=== PATIENT | female | born 1950 | race Caucasian/White ===

== ENCOUNTER → 2016-09-24 | Outpatient (CLI) | payer BC ==
[2016-09-24 14:02] LABS: Basophils % (A) 1 %; CH 30.1; CHCM 34.5; Eosinophils # (A) 0.4 k/uL (0-0.7); Eosinophils % (A) 14 %; HCT 35.5 % (34.0-46.0); HDW 2.76; HGB 12.4 gm/dL (11.4-16.0); Luc # (Auto) 0.08; Luc % (Auto) 3; Lymphocytes # (A) 0.7 k/uL (1.0-4.8); Lymphocytes % (A) 28 %; MCH 30.6 pg (25.0-35.0); MCHC 34.9 g/dL (31.0-37.0); MCV 87.7 fL (80.0-100.0); Mean Platelet Volume 7.8; Monocytes # (A) 0.3 k/uL (0-1.0); Monocytes % (A) 10 %; Neutrophils # (A) 1.2 k/uL (1.3-7.7); Neutrophils % (A) 44 %; RBC 4.05 m/uL (3.80-5.40); RDW 13.9 % (11.5-15.5); WBC 2.6 k/uL (3.8-10.6)
[2016-09-24 14:29] LABS: Bilirubin, Delta 0.3 mg/dL (0.0-0.2); Total Bilirubin 0.4 mg/dL (0.2-1.3); Total Protein 6.2 g/dL (6.3-8.2)
== END | disposition home or self-care (01) ==
LOC: LABWHC1 13:27
PROVIDERS: ATTEND Internal Medicine
DX: D83.9 Common variable immunodeficiency, unspecified (principal)
CPT/HCPCS: 36415; 80076; 82784; 85025

== ENCOUNTER 2019-08-29 18:52 | Inpatient (IN) | payer MEDICARE ==
[2019-08-29] MEDS ORDERED: SODIUM CHLORIDE 0.9% 1,000 ML IV STA (19:39)
[2019-08-29 20:29] LABS: Albumin 3.8 g/dL (3.5-5.0); Calcium 9.3 mg/dL (8.4-10.2); Potassium 4.1 mmol/L (3.5-5.1); Total Bilirubin 0.2 mg/dL (0.2-1.3); Total Protein 6.7 g/dL (6.3-8.2)
[2019-08-29 20:43] LABS: Appearance,Urine Clear (Clear); Bilirubin,Urine Negative (Negative); Blood,Urine Negative (Negative); Color,Urine Yellow; Glucose,Urine (UA) Negative (Negative); Ketones,Urine Negative (Negative); Leukocyte Esterase,Urine Negative (Negative); Nitrite,Urine Negative (Negative); Protein,Urine Negative (Negative); Specific Gravity,Urine 1.009 (1.001-1.035); Urobilinogen,Urine <2.0 mg/dL (<2.0)
[2019-08-29 20:58] LABS: Basophils % (A) 1 %; Eosinophils # (A) 0.1 k/uL (0-0.7); Eosinophils % (A) 6 %; HCT 35.5 % (34.0-46.0); HGB 11.9 gm/dL (11.4-16.0); Lymphocytes # (A) 0.5 k/uL (1.0-4.8); Lymphocytes % (A) 29 %; MCH 28.8 pg (25.0-35.0); MCHC 33.7 g/dL (31.0-37.0); MCV 85.6 fL (80.0-100.0); Mean Platelet Volume 8.1; Monocytes # (A) 0.2 k/uL (0-1.0); Monocytes % (A) 11 %; Neutrophils # (A) 0.8 k/uL (1.3-7.7); Neutrophils % (A) 52 %; RBC 4.14 m/uL (3.80-5.40); RDW 14.2 % (11.5-15.5); WBC 1.6 k/uL (3.8-10.6)
--- NOTE | 2019-08-29 21:16 | CT ---
EXAMINATION TYPE: CT abdomen pelvis wo con DATE OF EXAM: 08/29/2019 COMPARISON: CT 06/03/2013 HISTORY: DIARRHEA X3 WEEKS CT DLP: 585.4 mGycm Automated exposure control for dose reduction was used. TECHNIQUE: Helical acquisition of images from the lung bases through the pelvis. FINDINGS: There are coronary calcifications present. Increased attenuation in the subcutaneous fat li basia due to injections. LUNG BASES: Nonspecific pulmonary nodules present bilaterally, there are interstitial changes within the lungs. AORTA: No significant abnormality is appreciated. LIVER/GB: Gallbladder is contracted, there is pericholecystic inflammatory change, no definite calcul us. PANCREAS: Poorly defined, possibly fatty replaced, atrophic. SPLEEN: Enlarged. ADRENALS: No significant abnormality is seen. KIDNEYS: No significant abnormality is seen. REPRODUCTIVE ORGANS: No significant abnormality is seen. URINARY BLADDER: No significant abnormality is seen. BOWEL: Colon wall shows a thickened appearance. Some fatty replacement noted within origins of the c olon wall. There is a duodenal diverticulum suspected at the head of pancreas. FREE AIR: No Free Air is visible. ASCITES: None visible. PELVIC ADENOPATHY: Presacral increased attenuation is noted within the fat.. RETROPERITONEAL ADENOPATHY: Interval enlargement of retroperitoneal nodes. OSSEOUS STRUCTURES: There is a spinal curvature. Degenerative disc changes are present visualized sp ine.. IMPRESSION: RETROPERITONEAL ADENOPATHY, SPLENOMEGALY, CORRELATE FOR LYMPHOMA, LEUKEMIA, METASTATIC DISEASE. Diffi cult to exclude colitis, nondescript inflammatory changes about the gallbladder. Additional findings above.
[2019-08-29] MEDS ORDERED: MORPHINE SULFATE 4 MG/ML SYRINGE IV PRN (21:28)
[2019-08-29] MEDS ORDERED: NALOXONE 0.4 MG/ML 1 ML VIAL IV PRN (21:28)
--- NOTE | 2019-08-29 21:28 | ED ---
General Adult HPI - General Chief complaint: Nausea/Vomiting/Diarrhea Stated complaint: diarrhea, abd pain Time Seen by Provider: 08/29/19 19:07 Source: patient, RN notes reviewed, old records reviewed Mode of arrival: ambulatory Limitations: no limitations - History of Present Illness Initial comments: 68-year-old female patient presents to ED for evaluation of diarrhea for the last 3 weeks. Lower quadrant abdominal pain. Patient was seen by her primary care provider Bernabe worked up for her diarrhea. This was negative. This included C. diff, Giardia, stool culture. Denies any other complaints. Patient has a history of common variable immune deficiency. Systemic: Pt denies fatigue, fever/chills, rash. Pt denies weakness, night sweats, weight loss. Neuro: Pt denies headache, visual disturbances, syncope or pre-syncope. HEENT: Pt denies ocular discharge or irritation, otalgia, rhinorrhea, pharyngitis or notable lymphadenopathy. Cardiopulmonary: Pt denies chest pain, SOB, heart palpitations, dyspnea on exertion. Abdominal/GI: Pt denies n/v. : Pt denies dysuria, burning w/ urination, frequency/urgency. Denies new onset urinary or bowel incontinence. MSK: Pt denies myalgia, loss of strength or function in extremities. Neuro: Pt denies new onset weakness, paresthesias. - Related Data Allergies Allergy/AdvReac Type Severity Reaction Status Date / Time No Known Allergies Allergy Verified 08/29/19 19:00 Review of Systems ROS Statement: Those systems with pertinent positive or pertinent negative responses have been documented in the HPI. ROS Other: All systems not noted in ROS Statement are negative. Past Medical History Past Medical History: No Reported History History of Any Multi-Drug Resistant Organisms: None Reported Past Surgical History: Hysterectomy Additional Past Surgical History / Comment(s): common variable immune deficicency. Past Psychological History: No Psychological Hx Reported Smoking Status: Never smoker Past Alcohol Use History: None Reported Past Drug Use History: None Reported General Exam - General Exam Comments Initial Comments: Constitutional: NAD, AOX3, Pt has pleasant affect. HEENT: NC/AT, trachea midline, neck supple, no lymphadenopathy. Posterior pharynx non erythematous, without exudates. External ears appear normal, without discharge. Mucous membranes moist. Eyes PERRLA, EOM intact. There is no scleral icterus. No pallor noted. Cardiopulmonary: RRR, no murmurs, rubs or gallops, no JVD noted. Lungs CTAB in anterior and posterior castillo. No peripheral edema. Abdominal exam: Abdomen soft and non-distended. Mildly tender to palpation in suprapubic left lower quadrant region. Bowel sounds active in LLQ. No hepatosplenomegaly. No ecchymosis Neuro: CN II-XII grossly intact. No nuchal rigidity. No raccon eyes, no pineda sign, no hemotympanum. No cervical spinal tenderness. MSK: No posterior calf tenderness bilaterally, homans sign negative bilaterally. Posterior tibialis and radial pulse +2 bilaterally. Sensation intact in upper and lower extremities. Full active ROM in upper and lower extremities, 5/5 stregnth. Limitations: no limitations Course Vital Signs 08/29/19 18:55 Temperature 98.1 F Pulse Rate 71 Respiratory 18 Rate Blood Pressure 160/79 O2 Sat by Pulse 98 Oximetry Medical Decision Making - Medical Decision Making 68-year-old female patient presents to ED for evaluation of lower abdominal pain diarrhea for the last 3 weeks. Patient's history of common variable immune deficiency. Patient reports that she was worked up by her primary care provider for C. diff, Giardia, cryptosporidium which was negative. Physical exam displayed mild amount suprapubic left lower quadrant tenderness. Laboratory inv estigations were obtained, patient is neutropenic, 1.6. Laboratory investigations also displayed mild acute kidney injury: A 1.51. Alk phos is mildly elevated. Lipase is elevated at 593. UA negative. CT abdomen and pelvis was obtained without contrast due to patient's kidney function. CT abdom en pelvis without contrast displayed after peritoneal adenopathy splenomegaly correlate for lymphoma leukemia metastatic disease. Difficult to exclude colitis, inflammatory around the gallbladder. Pt has no RUQ tenderness and declines any pain in this region. Patient admitted for further evaluation with a malignancy. Case discussed with Dr. Toussaint. Accepting physician Dr. Kidd who requests CT chest without contrast as patient has remote smoking history. - Lab Data Result diagrams: 08/29/19 19:53 08/29/19 19:53 Lab Results 08/29/19 08/29/19 08/29/19 Range/Units 19:53 19:53 19:53 WBC 1.6 L (3.8-10.6) k/uL RBC 4.14 (3.80-5.40) m/uL Hgb 11.9 (11.4-16.0) gm/dL Hct 35.5 (34.0-46.0) % MCV 85.6 (80.0-100.0) fL MCH 28.8 (25.0-35.0) pg MCHC 33.7 (31.0-37.0) g/dL RDW 14.2 (11.5-15.5) % Sodium 137 (137-145) mmol/L Potassium 4.1 (3.5-5.1) mmol/L Chloride 103 (98-107) mmol/L Carbon Dioxide 27 (22-30) mmol/L Anion Gap 7 mmol/L BUN 18 H (7-17) mg/dL Creatinine 1.51 H (0.52-1.04) mg/dL Est GFR (CKD-EPI)AfAm 41 (>60 ml/min/1.73 sqM) Est GFR (CKD-EPI)NonAf 36 (>60 ml/min/1.73 sqM) Glucose 135 H (74-99) mg/dL Plasma Lactic Acid [place] 1.1 (0.7-2.0) mmol/L Calcium 9.3 (8.4-10.2) mg/dL Total Bilirubin 0.2 (0.2-1.3) mg/dL AST 40 H (14-36) U/L ALT 31 (4-34) U/L Alkaline Phosphatase 294 H (38-126) U/L Total Protein 6.7 (6.3-8.2) g/dL Albumin 3.8 (3.5-5.0) g/dL Lipase 593 H (23-300) U/L Urine Color Urine Appearance (Clear) Urine pH (5.0-8.0) Ur Specific [place] (1.001-1.035) Urine Protein (Negative) Urine Glucose (UA) (Negative) Urine Ketones (Negative) Urine Blood (Negative) Urine Nitrite (Negative) Urine Bilirubin (Negative) Urine Urobilinogen (<2.0) mg/dL Ur Leukocyte Esterase (Negative) 08/29/19 Range/Units 19:53 WBC (3.8-10.6) k/uL RBC (3.80-5.40) m/uL Hgb (11.4-16.0) gm/dL Hct (34.0-46.0) % MCV (80.0-100.0) fL MCH (25.0-35.0) pg MCHC (31.0-37.0) g/dL RDW (11.5-15.5) % Sodium (137-145) mmol/L Potassium (3.5-5.1) mmol/L Chloride (98-107) mmol/L Carbon Dioxide (22-30) mmol/L Anion Gap mmol/L BUN (7-17) mg/dL Creatinine (0.52-1.04) mg/dL Est GFR (CKD-EPI)AfAm (>60 ml/min/1.73 sqM) Est GFR (CKD-EPI)NonAf (>60 ml/min/1.73 sqM) Glucose (74-99) mg/dL Plasma Lactic Acid [place] (0.7-2.0) mmol/L Calcium (8.4-10.2) mg/dL Total Bilirubin (0.2-1.3) mg/dL AST (14-36) U/L ALT (4-34) U/L Alkaline Phosphatase (38-126) U/L Total Protein (6.3-8.2) g/dL Albumin (3.5-5.0) g/dL Lipase (23-300) U/L Urine Color Yellow Urine Appearance Clear (Clear) Urine pH 5.0 (5.0-8.0) Ur Specific [place] 1.009 (1.001-1.035) Urine Protein Negative (Negative) Urine Glucose (UA) Negative (Negative) Urine Ketones Negative (Negative) Urine Blood Negative (Negative) Urine Nitrite Negative (Negative) Urine Bilirubin Negative (Negative) Urine Urobilinogen <2.0 (<2.0) mg/dL Ur Leukocyte Esterase Negative (Negative) Disposition Clinical Impression: Diarrhea, Abdominal pain, Splenomegaly Narrative: possible malignancy Disposition: ADMITTED IP TO THIS [facility] Condition: Fair Is patient prescribed a controlled substance at d/c from ED?: No Referrals: Piotr Figueroa DO [Primary Care Provider] - 1-2 days
[2019-08-29 21:46] LABS: Anisocytosis (M) Present; Platelet Count 63 k/uL (150-450)
[2019-08-29] MEDS: SODIUM CHLORIDE 0.9% 1,000 ML IV SCH (21:50)
--- NOTE | 2019-08-29 22:05 | CT ---
EXAMINATION TYPE: CT chest wo con DATE OF EXAM: 08/29/2019 COMPARISON: CT chest 06/16/2013 HISTORY: smoking hx. Malignancy workup, previous abnormal chest CT with pulmonary nodules CT DLP: 360.6 mGycm. Automated Exposure Control for Dose Reduction was Utilized. TECHNIQUE: CT scan of the thorax is performed without IV contrast. FINDINGS: LUNGS: The lungs are remarkable for interstitial lung disease. Multiple bilateral lung nodules are pr esent. Largest at the right lower lobe measures only approximately 1 cm. No pleural or pericardial ef fusion. The tracheobronchial tree is patent. MEDIASTINUM: Lack of IV contrast is noted to limit evaluation for mediastinal and especially hilar ad enopathy. There are abnormal nodes in the prevascular region, aorticopulmonary window, retrocaval pre tracheal mediastinum, hilar regions suspected. No cardiomegaly or pericardial effusion is seen. Pul monary artery is dilated. OTHER: Left axillary adenopathy is present. Ascending aorta measures 4.2 cm. There are coronary arter y calcifications. There is splenomegaly. Question varices in the upper abdomen. IMPRESSION: Multiple pulmonary nodules, mediastinal and hilar adenopathy. Aortic aneurysm, pulmonary artery hypertension may be present. Noncontrast exam. Possible portal hypertension.
[2019-08-30] MEDS: ALPRAZolam 1 MG TAB PO SCH ×2 (00:19→21:39)
[2019-08-30] MEDS: PREGABALIN 100 MG CAP PO SCH (08:09)
[2019-08-30 08:44] LABS: HCT 32.3 % (34.0-46.0); HGB 10.7 gm/dL (11.4-16.0); Hypochromasia Slight; MCH 28.7 pg (25.0-35.0); MCHC 33.1 g/dL (31.0-37.0); MCV 86.9 fL (80.0-100.0); RBC 3.72 m/uL (3.80-5.40); RDW 14.3 % (11.5-15.5)
[2019-08-30 09:00] LABS: Platelet Count 45 k/uL (150-450); WBC 1.4 k/uL (3.8-10.6)
[2019-08-30 09:43] LABS: Calcium 8.5 mg/dL (8.4-10.2); Potassium 4.3 mmol/L (3.5-5.1); Total Bilirubin 0.3 mg/dL (0.2-1.3); Total Protein 5.7 g/dL (6.3-8.2)
[2019-08-30] MEDS ORDERED: LOPERAMIDE 2 MG CAP PO STA (10:40)
[2019-08-30] MEDS ORDERED: LOPERAMIDE 2 MG CAP PO PRN (10:40)
--- NOTE | 2019-08-30 10:46 | P.HPIM ---
History of Present Illness H&P Date: 08/30/19 Chief Complaint: Diarrhea This is a 68-year-old female patient of Dr. Figueroa with past medical history of common variable immune deficiency follows with dining services manager Dr. Cardona in [facility], on Hizentra weekly. Patient gives history of having diarrhea for several weeks up to one month. She also has abdominal pain/cramping that she describes as a discomfort in the lower abdominal quadrants. She thinks her last colonoscopy was 3 years ago but most likely longer is there is no report on record here. She has had no recent hospitalizations. She states she has lost 10 pounds. No nausea or vomiting, no fever or chills. No cough. No chest pain. She does have lower extremity edema which is been chronic. She denies any dysuria. She denies any previous history of cancer. She has had no follow-up with Dr. Wu. He did perform a CAT scan of the chest to rule out lung cancer in 2013. Last Thursday, patient contacted her PCP office and stool specimen was provided for testing: Cryptosporidium negative, Giardia negative, C. difficile toxin negative. She received a call from the office yesterday and she was told that her culture was negative. Patient states that she was still having diarrhea and abdominal discomfort and was told to take Imodium and an appointment was set up for October 10. Patient was not happy with this and sought treatment by coming into the hospital. Patient presented to [facility] emergency center for evaluation. She was found to have a white count of 1.6, hemoglobin 11.9, platelet count 63. BUN 18 and creatinine 1.51. Electrolytes normal, blood sugar 135. AST 40, ALT 31, alkaline phosphatase 294, lipase 593. Urinalysis was negative. CAT scan of the abdomen pelvis without contrast revealed retroperitoneal adenopathy, splenomegaly, correlate for lymphoma, leukemia, metastatic disease. Difficult to exclude colitis. Nondescript inflammatory changes about the gallbladder. Subsequently, a CAT scan of the chest was ordered without contrast which revealed multiple pulmonary nodules, mediastinal and hilar adenopathy. Aortic aneurysm, pulmonary aortic hypertension may be present. Possible portal hypertension. Patient has been admitted to the [facility] floor, oncology consult and abdominal ultrasound ordered to evaluate gallbladder and liver. Review Of Systems: Constitutional: No fever, no chills, no night sweats. Reports weight loss. No weakness, fatigue or lethargy. No daytime sleepiness. EENT: No headache. No blurred vision or double vision, no loss of vision. No loss of Hearing, no ringing in the ears, no dizziness. No nasal drainage or congestion. No epistaxis. No sore throat. Lungs: No shortness of breath, cough, no sputum production. No wheezing. Cardiovascular: No chest pain, no lower extremity edema. No palpitations. No paroxysmal nocturnal dyspnea. No orthopnea. No lightheadedness or dizziness. No syncopal episodes. Abdominal: Reports abdominal discomfort. No nausea, vomiting. Reports diarrhea. No constipation. No bloody or tarry stools. No loss of appetite. Genitourinary: No dysuria, increased frequency, urgency. No urinary retention. Musculoskeletal: No myalgias. No muscle weakness, no gait dysfunction, no frequent falls. No back pain. No neck pain. Integumentary: No wounds, no lesions. No rash or pruritus. No unusual bruising. No change in hair or nails. Neurologic: No aphasia. No facial droop. No change in mentation. No head injury. No headache. No paralysis. No paresthesia. Psychiatric: No depression. No anxiety. No mood swings. Endocrine: No abnormal blood sugars. Reports weight loss. No excessive sweating or thirst. No cold intolerance. Physical examination Gen: This is a 68-year-old female. Patient is resting in bed and appears to be comfortable and in no acute distress. HEENT: Head is atraumatic, normocephalic. Pupils equal, round. Sclerae is anicteric. Oral mucous membranes are slightly dry. NECK: Supple. No JVD. No lymphadenopathy. No thyromegaly. No lymphadenopathy noted in the neck, axilla, groin areas. LUNGS: Clear to auscultation. No wheezes or rhonchi. No intercostal retractions. HEART: Regular rate and rhythm. No murmur. ABDOMEN: Soft. Bowel sounds are present. No masses. Minimal lower abdominal tenderness. Palpated and large spleen and borderline enlarged liver. EXTREMITIES: Trace bilateral pedal edema. No calf tenderness. Dorsalis pedis +2 bilaterally. NEUROLOGICAL: Patient is awake, alert and oriented x3. Cranial nerves 2 through 12 are grossly intact. Assessment and plan 1. Abdominal pain and diarrhea of unclear etiology, possible colitis. Start Imodium 4 mg 1 and 2 mg 4 times daily as needed for diarrhea. Continue IV fluids. 2. Acute kidney injury. Continue IV fluids at 75 mL per hour, avoid nephrotoxic agents. 3. Retroperitoneal adenopathy, pulmonary nodules and splenomegaly, rule out non-Hodgkin's lymphoma, MALT. Ultrasound of the gallbladder/liver ordered. Consult with oncology 4. Bicytopenia with leukopenia and thrombocytopenia. Consult with oncology. Repeat lab work in the morning. 5. History of common variable immune deficiency under the care of Dr. Cardona [facility]. Patient is on Hizentra weekly. 6. Generalized anxiety disorder. Continue Xanax 0.5 mg at bedtime, Celexa 40 mg at bedtime. 7. DVT prophylaxis. Heparin subcu every 12 hours. 8. GI prophylaxis. Protonix daily. 9. COVID-19 testing in process. Patient will be admitted to the hospital for a minimum of 2 night stay. Discharge plan: Home Impression and plan of care have been directed as dictated by the signing physician. Lorna Machado nurse practitioner acting as scribe for signing physician. 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 Severe recalcitrant dermatitis, Allergic rhinitis. History of Any Multi-Drug Resistant Organisms: MRSA Date of last positivie culture/infection: 08/14/2009 MDRO Source:: Open wound. Past Surgical History: Hysterectomy Additional Past Surgical History / Comment(s): common variable immune deficicency. Additional Past Anesthesia/Blood Transfusion Reaction / Comment(s): Slow to wake up. Past Psychological History: Anxiety, Depression Smoking Status: Never smoker Past Alcohol Use History: None Reported Additional Past Alcohol Use History / Comment(s): Patient was a smoker for a few years and quit 5 years ago. She denies any alcohol use, marijuana or illicit drug use. She is and lives at home with her . She retired in 2017 from [employer]. Past Drug Use History: None Reported - Past Family History Father Additional Family Medical History / Comment(s): Patient's father at age 92 from CVA. He also had a degenerative muscle disorder. Mother Additional Family Medical History / Comment(s): Mother is alive at age 90 with no major medical problems. Brother(s) Additional Family Medical History / Comment(s): Patient is a total of 4 siblings with no major medical problems. Patient has one daughter with no major medical problems. Medications and Allergies Home Medications Medication Instructions Recorded Confirmed Type ALPRAZolam [Xanax] 1 mg PO HS 08/29/19 08/29/19 History Citalopram Hydrobromide [CeleXA] 40 mg PO HS 08/29/19 08/29/19 History Pregabalin [Lyrica] 100 mg PO DAILY 08/29/19 08/29/19 History hydrOXYzine HCL [Atarax] 75 mg PO TID PRN 08/29/19 08/29/19 History traMADol HCL 50 mg PO TID PRN 08/29/19 08/29/19 History Allergies Allergy/AdvReac Type Severity Reaction Status Date / Time No Known Allergies Allergy Verified 08/29/19 22:06 Physical Exam Vitals: Vital Signs Temp Pulse Pulse Resp BP BP Pulse Ox 08/30/19 06:05 98.0 F 71 18 137/76 95 08/29/19 23:53 98.4 F 77 18 157/83 97 08/29/19 23:13 16 08/29/19 23:00 97.8 F 74 16 150/80 98 08/29/19 21:00 76 18 158/88 98 08/29/19 20:00 74 16 150/82 98 08/29/19 18:55 98.1 F 71 18 160/79 98 Intake and Output 08/29/19 08/30/19 08/30/19 22:59 06:59 14:59 Intake Total 750 Balance 750 Intake: Intake, IV Titration 450 Amount Sodium Chloride 0.9% 1, 450 000 ml @ 75 mls/hr IV . [id number] [facility] Rx#:[id number] Oral 300 Other: Voiding Method Toilet # Voids 1 Weight 70.76 kg 70.76 kg Results CBC & Chem 7: 08/30/19 08:12 08/30/19 08:12 Labs: Abnormal Lab Results - Last 24 Hours (Table) 08/29/19 08/29/19 Range/Units 19:53 19:53 WBC 1.6 L (3.8-10.6) k/uL Plt Count 63 L (150-450) k/uL Neutrophils # 0.8 L (1.3-7.7) k/uL Lymphocytes # 0.5 L (1.0-4.8) k/uL BUN 18 H (7-17) mg/dL Creatinine 1.51 H (0.52-1.04) mg/dL Glucose 135 H (74-99) mg/dL AST 40 H (14-36) U/L Alkaline Phosphatase 294 H (38-126) U/L Lipase 593 H (23-300) U/L Thrombosis Risk Factor Assmnt - Choose All That Apply Other Risk Factors: No Each Risk Factor Represents 2 Points: Age 61-74 years Thrombosis Risk Factor Assessment Total Risk Factor Score: 2 Thrombosis Risk Factor Assessment Level: Low Risk
[2019-08-30] MEDS: SODIUM CHLORIDE 0.9% 1,000 ML IV SCH (11:39)
--- NOTE | 2019-08-30 11:49 | US ---
EXAMINATION TYPE: US abdomen limited DATE OF EXAM: 08/30/2019 COMPARISON: CT 08/29/2019 CLINICAL HISTORY: GB, elevated LFT. elevated labs, abn CT, lower pelvic pain and diarrhea EXAM MEASUREMENTS: Liver Length: 15.6 cm Gallbladder Wall: 0.3 cm CBD: 0.7 cm Right Kidney: 9.3 x 3.9 x 5.1 cm Pancreas: limited views appear wnl Liver: wnl, trace amount of free fluid seen lateral liver Gallbladder: 10.0cm hydropic appearing GB with borderline wall thickness and minimal pericholecystic fluid is questioned, pericolic gutter fluid noted on CT not appreciated by US Evidence for sonographic Crowder's sign: no CBD: wnl Right Kidney: wnl IMPRESSION: There is a small amount of ascites. Hydropic gallbladder.
[2019-08-30 13:01] LABS: Reticulocyte % 1.7 % (0.5-2.0)
[2019-08-30 13:08] LABS: INR 0.9 (<1.2); Partial Thromboplastin Time 23.9 sec (22.0-30.0); Prothrombin Time 9.8 sec (9.0-12.0)
[2019-08-30 13:13] LABS: Uric Acid 7.9 mg/dL (3.7-7.4)
[2019-08-30 15:05] VITALS: BMI 29.0
[2019-08-30 15:36] LABS: Magnesium 1.6 mg/dL (1.6-2.3); Phosphorus 3.4 mg/dL (2.5-4.5)
--- NOTE | 2019-08-30 16:12 | P.CONS ---
History of Present Illness - Reason for Consult Consult date: 08/30/19 Concern for malignancy Requesting physician: Alejandro Castañeda - Chief Complaint Diarrhea - History of Present Illness Ms. Cedeno is a pleasant female who has been seen and evalauted in the past by Dr. Larson for Bilateral pulmonary nodules in 2013 and then in 2017 for bicytopenia. She has a known history of hypogammaglobulimemia and follows with retail sales assistant Dr. Cardona out of [facility]. She receives Hizentra (IVIG Inj) weekly. She has recurrent Herpetic infections, including genital, shingles and currently sores in her nose and on lips. She states she used to be on a suppression dose of antiviral although not sure what happened to that. She remembers seeing Dr. Larson in 2013 for bilateral pulmonary nodules and right axillary enlarged lymph node. At that time it was determined the nodules where non-definitive as they were less than 0.5cm. The recommendation was to have a repeat CT chest in 4 months and follow-up, although patient did not show for appointment of CT scan or for Follow-up. Fast forward to 2017, she was again referred to Dr. Larson for a different problem, lymphocytopenia and thrombocytopenia. At that time, he recommended a bone marrow biopsy. Patient had cancelled this appointment and never came back to office. She states she has since been following with Dr. Cardona. No biopsy of lung nodules or lymph node has ever been performed. She presented to [facility] with complaints of Diarrhea. She states this started approx 3 weeks ago, with associated intermittent nausea, lower abdominal cramping, pain. No vomiting. She also has chronic lymphedema in Bilateral lower legs. Last Thursday, patient contacted her PCP office and stool specimen was provided for testing: Cryptosporidium negative, Giardia negative, C. difficile toxin negative. She continued with diarrhea and pain therefore presented to emergency. Today her WBC = 1.4, Hemoglobin = 10.4, platelet count 46K, Lipase elevated at 593. Renal function is also increased mildly 1.53 (baseline unknown) CAT scan of the abdomen pelvis without contrast revealed retroperitoneal adenopathy, splenomegaly, correlate for lymphoma, leukemia, metastatic disease. Difficult to exclude colitis. Nondescript inflammatory changes about the gallbladder. Subsequently, a CAT scan of the chest was ordered without contrast which revealed multiple pulmonary nodules, mediastinal and hilar adenopathy. Aortic aneurysm, pulmonary aortic hypertension may be present. Possible portal hypertension. Patient has been admitted to the [facility] floor, oncology consult and abdominal ultrasound ordered to evaluate gallbladder and liver. Per patient no current tobacco use (remote history of use) and denies ETOH or illicit drug use. 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 Severe recalcitrant dermatitis, Allergic rhinitis. History of Any Multi-Drug Resistant Organisms: MRSA Year Discovered:: 08/14/2009 MDRO Source:: Open wound. Past Surgical History: Hysterectomy Additional Past Surgical History / Comment(s): common variable immune deficicency. Additional Past Anesthesia/Blood Transfusion Reaction / Comm: Slow to wake up. Past Psychological History: Anxiety, Depression Smoking Status: Never smoker Past Alcohol Use History: None Reported Additional Past Alcohol Use History / Comment(s): Patient was a smoker for a few years and quit 5 years ago. She denies any alcohol use, marijuana or illicit drug use. She is and lives at home with her . She retired in 2017 from [employer]. Past Drug Use History: None Reported - Past Family History Father Additional Family Medical History / Comment(s): Patient's father at age 92 from CVA. He also had a degenerative muscle disorder. Mother Additional Family Medical History / Comment(s): Mother is alive at age 90 with no major medical problems. Brother(s) Additional Family Medical History / Comment(s): Patient is a total of 4 siblings with no major medical problems. Patient has one daughter with no major medical problems. Medications and Allergies Home Medications Medication Instructions Recorded Confirmed Type ALPRAZolam [Xanax] 1 mg PO HS 08/29/19 08/29/19 History Citalopram Hydrobromide [CeleXA] 40 mg PO HS 08/29/19 08/29/19 History Pregabalin [Lyrica] 100 mg PO DAILY 08/29/19 08/29/19 History hydrOXYzine HCL [Atarax] 75 mg PO TID PRN 08/29/19 08/29/19 History traMADol HCL 50 mg PO TID PRN 08/29/19 08/29/19 History Allergies Allergy/AdvReac Type Severity Reaction Status Date / Time No Known Allergies Allergy Verified 08/29/19 22:06 Physical Exam Vitals: Vital Signs Temp Pulse Pulse Resp BP BP Pulse Ox 08/30/19 06:05 98.0 F 71 18 137/76 95 08/29/19 23:53 98.4 F 77 18 157/83 97 08/29/19 23:13 16 08/29/19 23:00 97.8 F 74 16 150/80 98 08/29/19 21:00 76 18 158/88 98 08/29/19 20:00 74 16 150/82 98 08/29/19 18:55 98.1 F 71 18 160/79 98 Intake and Output 08/29/19 08/30/19 08/30/19 22:59 06:59 14:59 Intake Total 750 Balance 750 Intake: Intake, IV Titration 450 Amount Sodium Chloride 0.9% 1, 450 000 ml @ 75 mls/hr IV . [id number] [facility] Rx#:[id number] Oral 300 Other: Voiding Method Toilet Toilet # Voids 1 Weight 70.76 kg 70.76 kg - Constitutional General appearance: cooperative, no acute distress - EENT Herpetic lesions on lip and open sores in nostrils Eyes: EOMI, poor dentition ENT: NA/AT, normal oropharynx - Neck Supraclavicular shotty. Right axillary lymphadenopathy palpable Neck: lymphadenopathy - Respiratory Respiratory: bilateral: CTA, diminished (no increased effort) - Cardiovascular Rhythm: regular Heart sounds: normal: S1, S2 leg Peripheral Edema: bilateral: Other (Chronic bilateral edema) - Gastrointestinal Firm, bloated and distended General gastrointestinal: distended - Integumentary Integumentary: pale - Neurologic non-focal - Musculoskeletal Musculoskeletal: generalized weakness, strength equal bilaterally - Psychiatric Psychiatric: A&O x's 3, appropriate affect, intact judgment & insight Results CBC & Chem 7: 08/30/19 08:12 08/30/19 08:12 Labs: Abnormal Lab Results - Last 24 Hours (Table) 08/29/19 08/29/19 08/30/19 Range/Units 19:53 19:53 08:12 WBC 1.6 L 1.4 L* (3.8-10.6) k/uL RBC 3.72 L (3.80-5.40) m/uL Hgb 10.7 L (11.4-16.0) gm/dL Hct 32.3 L (34.0-46.0) % Plt Count 63 L 45 L (150-450) k/uL Neutrophils # 0.8 L (1.3-7.7) k/uL Lymphocytes # 0.5 L (1.0-4.8) k/uL Chloride (98-107) mmol/L BUN 18 H (7-17) mg/dL Creatinine 1.51 H (0.52-1.04) mg/dL Glucose 135 H (74-99) mg/dL AST 40 H (14-36) U/L Alkaline Phosphatase 294 H (38-126) U/L Total Protein (6.3-8.2) g/dL Albumin (3.5-5.0) g/dL Lipase 593 H (23-300) U/L 08/30/19 Range/Units 08:12 WBC (3.8-10.6) k/uL RBC (3.80-5.40) m/uL Hgb (11.4-16.0) gm/dL Hct (34.0-46.0) % Plt Count (150-450) k/uL Neutrophils # (1.3-7.7) k/uL Lymphocytes # (1.0-4.8) k/uL Chloride 110 H (98-107) mmol/L BUN (7-17) mg/dL Creatinine 1.44 H (0.52-1.04) mg/dL Glucose (74-99) mg/dL AST 37 H (14-36) U/L Alkaline Phosphatase 253 H (38-126) U/L Total Protein 5.7 L (6.3-8.2) g/dL Albumin 3.0 L (3.5-5.0) g/dL Lipase 397 H (23-300) U/L CT scan - chest: report reviewed CT scan - pelvis: report reviewed US - abdomen: report reviewed Assessment and Plan (1) Pulmonary nodules Current Visit: Yes Status: Acute Code(s): R91.8 - OTHER NONSPECIFIC ABNORMAL FINDING OF LUNG FIELD SNOMED Code(s): 800471101 (2) Pancytopenia Current Visit: Yes Status: Acute Code(s): D61.818 - OTHER PANCYTOPENIA SNOMED Code(s): 549076939 (3) Hypogammaglobulinaemia, unspecified Current Visit: Yes Status: Acute Code(s): D80.1 - NONFAMILIAL HYPOGAMMAGLOBULINEMIA SNOMED Code(s): 199603453 (4) Diarrhea Current Visit: Yes Status: Acute Code(s): R19.7 - DIARRHEA, UNSPECIFIED SNOMED Code(s): 17399890 (5) Splenomegaly Current Visit: Yes Status: Acute Code(s): R16.1 - SPLENOMEGALY, NOT ELSEWHERE CLASSIFIED SNOMED Code(s): 27273072 Plan: Assessment and Recommendation Pancytopenia: - Normocytic anemia: - THrombocytopenia: Less than 50K no NSAIDS, or Aspirin, or VTE prophylaxis with less than 50K - Lymphocytopenia and Neutropenia: Will need to confirm diagnosis prior to initiation growth factor in case picture is of acute leukemia (less likely) - FLow cytometry on Lymph node biopsy and on peripheral blood - Pancytopenia work-up ordered Diffuse Adenopathy: - This has been present on prior imaging from 2013, although has increased in size and now within retroperitoneum - With the picture of hypogammaglobulemia, cytopenias, and adenopathy must consider malignancy, more specifically a lymphoma/leukemia (chronic) etiology - Uric acid and LDH - We have asked General surgery for excisional lymph node biopsy (axilla are palpable) Persistent Diarrhea - Stool studies negative, monitor for neutropenia colitis - Retrict PO intake - GI consult placed Abdominal Pain and Cramping - Repeat Flat Plate - Abdomen increased firm and distended today Bilateral Pulmonary Nodules - Have been present since 2014 never have they been biopsied Hypogammaglobulemia -[facility] retail sales assistant Dr. Cardona - Weekly IVIG injections
[2019-08-30] MEDS: ACYCLOVIR 800 MG TAB PO SCH ×2 (16:44→21:40)
[2019-08-30] MEDS: CHOLESTYRAMINE (WITH SUGAR) 4 GM PACKET PO SCH ×2 (17:49→21:40)
[2019-08-30 19:58] LABS: Protein, Total 5.6 g/dL (6.2-8.2)
[2019-08-30] MEDS ORDERED: HEPARIN SODIUM,PORCINE 5,000 UNIT/ML 1 ML VIAL SQ SCH (21:00)
[2019-08-30 21:35] LABS: % Iron Saturation 7.62 (12.00-45.00)
[2019-08-30 21:40] LABS: Ferritin 50.7 ng/mL (10.0-291.0)
[2019-08-30] MEDS: CITALOPRAM HYDROBROMIDE 20 MG TAB PO SCH (21:40)
[2019-08-30 22:00] LABS: Folate, Serum 18.6 ng/mL
[2019-08-31] MEDS: SODIUM CHLORIDE 0.9% 1,000 ML IV SCH (01:50)
[2019-08-31 07:14] LABS: Basophils % (A) 2 %; Eosinophils # (A) 0.1 k/uL (0-0.7); Eosinophils % (A) 6 %; HCT 31.9 % (34.0-46.0); HGB 10.2 gm/dL (11.4-16.0); Hypochromasia Slight; Lymphocytes # (A) 0.5 k/uL (1.0-4.8); Lymphocytes % (A) 42 %; MCH 27.7 pg (25.0-35.0); MCV 86.7 fL (80.0-100.0); Mean Platelet Volume 8.5; Monocytes # (A) 0.1 k/uL (0-1.0); Monocytes % (A) 10 %; Neutrophils # (A) 0.5 k/uL (1.3-7.7); Neutrophils % (A) 38 %; RBC 3.68 m/uL (3.80-5.40); RDW 14.5 % (11.5-15.5)
[2019-08-31 07:25] LABS: Calcium 8.3 mg/dL (8.4-10.2); Magnesium 1.6 mg/dL (1.6-2.3); Phosphorus 3.4 mg/dL (2.5-4.5); Total Bilirubin 0.3 mg/dL (0.2-1.3); Total Protein 5.5 g/dL (6.3-8.2)
[2019-08-31 07:26] LABS: WBC 1.2 k/uL (3.8-10.6)
[2019-08-31 07:27] LABS: Platelet Count 41 k/uL (150-450)
[2019-08-31] MEDS: CHOLESTYRAMINE (WITH SUGAR) 4 GM PACKET PO SCH ×4 (08:10→21:36)
[2019-08-31] MEDS: PANTOPRAZOLE 40 MG TABLET PO SCH (08:17)
[2019-08-31] MEDS: ACYCLOVIR 800 MG TAB PO SCH ×3 (08:17→21:39)
[2019-08-31] MEDS: PREGABALIN 100 MG CAP PO SCH (08:17)
[2019-08-31 08:24] LABS: Anisocytosis (M) Present; Poikilocytosis (M) Present
[2019-08-31 09:42] LABS: Free Kappa Lt Chain Qnt, Serum 0.92 mg/dL (0.33-1.94)
--- NOTE | 2019-08-31 09:59 | P.PN ---
Subjective Progress Note Date: 08/31/19 This is a 68-year-old female patient of Dr. Figueroa with past medical history of common variable immune deficiency follows with [address] Cardona in [facility], on Hizentra weekly. Patient gives history of having diarrhea for several weeks up to one month. She also has abdominal pain /cramping that she describes as a discomfort in the lower abdominal quadrants. She thinks her last colonoscopy was 3 years ago but most likely longer is there is no report on record here. She has had no recent hospitalizations. She states she has lost 10 pounds. No nausea or vomiting, no fever or chills. No cough. No chest pain. She does have lower extremity edema which is been chronic. She denies any dysuria. She denies any previous history of cancer. She has had no follow-up with Dr. Wu. He did perform a CAT scan of the chest to rule out lung cancer in 2013. Last Thursday, patient contacted her PCP office and stool specimen was provided for testing: Cryptosporidium negative, Giardia negative, C. difficile toxin negative. She received a call from the office yesterday and she was told that her culture was negative. Patient states that she was still having diarrhea and abdominal discomfort and was told to take Imodium and an appointment was set up for October 10. Patient was not happy with this and sought treatment by coming into the hospital. Patient presented to [facility] emergency center for evaluation. She was found to have a white count of 1.6, hemoglobin 11.9, platelet count 63. BUN 18 and creatinine 1.51. Electrolytes normal, blood conteh gar 135. AST 40, ALT 31, alkaline phosphatase 294, lipase 593. Urinalysis was negative. CAT scan of the abdomen pelvis without contrast revealed retroperitoneal adenopathy, splenomegaly, correlate for lymphoma, leukemia, metastatic disease. Difficult to exclude colitis. Nondescript inflammatory changes about the gallbladder. Subsequently, a CAT scan of the chest was ordered without contrast which revealed multiple pulmonary nodules, mediastinal and hilar adenopathy. Aortic aneurysm, pulmonary aortic hypertension may be present. Possible portal hypertension. Patient has been admitted to the [facility] floor, oncology consult and abdominal ultrasound ordered to evaluate gallbladder and liver. 08/30: Patient has been seen by oncology and consults were added for Dr. Rivero for lymph node biopsy from the axilla. This has not yet been scheduled. Patient is also had a consult added for Dr. Baird for diarrhea. Patient states that Imodium significantly helped diarrhea yesterday. She is feeling better in general. Ultrasound of the gallbladder region revealed minimal ascites. Hydropic gallbladder. Patient has been afebrile, heart rate 66, blood pressure 123/67, pulse ox 97% on room air. Repeat blood work reveals WBC 1.2, hemoglobin 10.2, platelet 41. Subcu heparin will be discontinued. Other lab work reveals uric acid of 8, iron 26, TIBC 341, iron saturation 7.62, ferritin 50.7, LDH 3.88, total protein PEEP 5.6, vitamin B12 847, folate 18.6. Repeat lipase is 236. Rheumatoid factor is 7, TANIA screen negative. Free Of 0.92 and free lambda 0.65. Coronavirus testing negative. Anticipate possible discharge tomorrow and patient will follow-up for pathology report. Review Of Systems: Constitutional: No fever, no chills, no night sweats. Reports weight loss. No weakness, fatigue or lethargy. No daytime sleepiness. EENT: No headache. No blurred vision or double vision, no loss of vision. No loss of Hearing, no ringing in the ears, no dizziness. No nasal drainage or congestion. No epistaxis. No sore throat. Lungs: No shortness of breath, cough, no sputum production. No wheezing. Cardiovascular: No chest pain, no lower extremity edema. No palpitations. No paroxysmal nocturnal dyspnea. No orthopnea. No lightheadedness or dizziness. No syncopal episodes. Abdominal: Reports abdominal discomfort. No nausea, vomiting. Reports diarrhea, resolved. No constipation. No bloody or tarry stools. No loss of appetite. Genitourinary: No dysuria, increased frequency, urgency. No urinary retention. Musculoskeletal: No myalgias. No muscle weakness, no gait dysfunction, no frequent falls. No back pain. No neck pain. Integumentary: No wounds, no lesions. No rash or pruritus. No unusual bruising. No change in hair or nails. Neurologic: No aphasia. No facial droop. No change in mentation. No head injury. No headache. No paralysis. No paresthesia. Psychiatric: No depression. No anxiety. No mood swings. Endocrine: No abnormal blood sugars. Reports weight loss. No excessive sweating or thirst. No cold intolerance. Physical examination Gen: This is a 68-year-old female. Patient is resting in bed and appears to be comfortable and in no acute distress. HEENT: Head is atraumatic, normocephalic. Pupils equal, round. Sclerae is anicteric. Oral mucous membranes are slightly dry. NECK: Supple. No JVD. No lymphadenopathy. No thyromegaly. No lymphadenopathy noted in the neck, groin areas. Small lymph nodes palpated in the axilla. LUNGS: Clear to auscultation. No wheezes or rhonchi. No intercostal retractions. HEART: Regular rate and rhythm. No murmur. ABDOMEN: Soft. Bowel sounds are present. No masses. Minimal lower abdominal tenderness. Palpated and large spleen and borderline enlarged liver. EXTREMITIES: Trace bilateral pedal edema. No calf tenderness. Dorsalis pedis +2 bilaterally. NEUROLOGICAL: Patient is awake, alert and oriented x3. Cranial nerves 2 through 12 are grossly intact. Assessment and plan 1. Abdominal pain and diarrhea of unclear etiology, possible colitis. Continue Imodium 2 mg 4 times daily as needed for diarrhea. Continue IV fluids. GI consult was added. 2. Acute kidney injury. Discontinue IV fluids, avoid nephrotoxic agents. 3. Retroperitoneal adenopathy, pulmonary nodules and splenomegaly, rule out non-Hodgkin's lymphoma, MALT. Ultrasound of the gallbladder/liver as above. Consult with oncology appreciated. 4. Bicytopenia with leukopenia and thrombocytopenia. Consult with oncology. Repeat lab work in the morning. 5. History of common variable immune deficiency under the care of Dr. Cardona [facility]. Patient is on Hizentra weekly. 6. Generalized anxiety disorder. Continue Xanax 0.5 mg at bedtime, Celexa 40 mg at bedtime. 7. DVT prophylaxis. Heparin subcu every 12 hours. 8. GI prophylaxis. Protonix daily. 9. COVID-19 infection not present. Discharge plan: Home Impression and plan of care have been directed as dictated by the signing physi cian. Lorna Machado nurse practitioner acting as scribe for signing physician. Objective - Vital Signs Vital signs: Vital Signs Temp 97.2 F L 08/31/19 05:00 Pulse 66 08/31/19 05:00 Resp 18 08/31/19 05:00 BP 123/67 08/31/19 05:00 Pulse Ox 97 08/31/19 05:59 Intake & Output 08/30/19 08/31/19 08/31/19 18:59 06:59 18:59 Intake Total 580 1790 Balance 580 1790 Weight 72.03 kg Intake: Intake, IV Titration 1100 Amount Sodium Chloride 0.9% 1, 1100 000 ml @ 75 mls/hr IV . [id number] [facility] Rx#:[id number] Oral 580 690 Other: Voiding Method Toilet Toilet # Voids 2 2 - Labs CBC & Chem 7: 08/31/19 06:20 08/31/19 06:20 Labs: Abnormal Lab Results - Last 24 Hours (Table) 08/30/19 08/30/19 08/30/19 Range/Units 08:12 08:12 12:32 WBC 1.4 L* (3.8-10.6) k/uL RBC 3.72 L (3.80-5.40) m/uL Hgb 10.7 L (11.4-16.0) gm/dL Hct 32.3 L (34.0-46.0) % Plt Count 45 L (150-450) k/uL ESR 24 H (0-20) mm/hr Chloride 110 H (98-107) mmol/L Creatinine 1.44 H (0.52-1.04) mg/dL Uric Acid (3.7-7.4) mg/dL Calcium (8.4-10.2) mg/dL Iron (50-170) ug/dL % Saturation (12.00-45.00) AST 37 H (14-36) U/L Alkaline Phosphatase 253 H (38-126) U/L Total Protein 5.7 L (6.3-8.2) g/dL Total Protein (PEP) (6.2-8.2) g/dL Albumin 3.0 L (3.5-5.0) g/dL Lipase 397 H (23-300) U/L 08/30/19 08/30/19 08/31/19 Range/Units 12:32 12:32 06:20 WBC 1.2 L* (3.8-10.6) k/uL RBC 3.68 L (3.80-5.40) m/uL Hgb 10.2 L (11.4-16.0) gm/dL Hct 31.9 L (34.0-46.0) % Plt Count (150-450) k/uL ESR (0-20) mm/hr Chloride (98-107) mmol/L Creatinine (0.52-1.04) mg/dL Uric Acid 7.9 H (3.7-7.4) mg/dL Calcium (8.4-10.2) mg/dL Iron 26 L (50-170) ug/dL % Saturation 7.62 L (12.00-45.00) AST (14-36) U/L Alkaline Phosphatase (38-126) U/L Total Protein (6.3-8.2) g/dL Total Protein (PEP) 5.6 L (6.2-8.2) g/dL Albumin (3.5-5.0) g/dL Lipase (23-300) U/L 08/31/19 Range/Units 06:20 WBC (3.8-10.6) k/uL RBC (3.80-5.40) m/uL Hgb (11.4-16.0) gm/dL Hct (34.0-46.0) % Plt Count (150-450) k/uL ESR (0-20) mm/hr Chloride 109 H (98-107) mmol/L Creatinine 1.42 H (0.52-1.04) mg/dL Uric Acid 8.0 H (3.7-7.4) mg/dL Calcium 8.3 L (8.4-10.2) mg/dL Iron (50-170) ug/dL % Saturation (12.00-45.00) AST 38 H (14-36) U/L Alkaline Phosphatase 237 H (38-126) U/L Total Protein 5.5 L (6.3-8.2) g/dL Total Protein (PEP) (6.2-8.2) g/dL Albumin 3.0 L (3.5-5.0) g/dL Lipase (23-300) U/L
--- NOTE | 2019-08-31 12:32 | P.GSCN ---
History of Present Illness Consult date: 08/31/19 Reason for Consult: Lymphadenopathy History of present illness: Is a 68-year-old female who is admitted to Dr. Phani bradley. Patient is admi tted for neutropenia. I been asked to see her regarding possible lymph node biopsy. Patient's recent CAT scan shows evidence of retroperitoneal adenopathy splenic megaly consistent with possible leukemia or metastatic disease. 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 Severe recalcitrant dermatitis, Allergic rhinitis. History of Any Multi-Drug Resistant Organisms: MRSA Year Discovered:: 08/14/2009 MDRO Source:: Open wound. Past Surgical History: Hysterectomy Additional Past Surgical History / Comment(s): common variable immune deficicency. Additional Past Anesthesia/Blood Transfusion Reaction / Comm: Slow to wake up. Past Psychological History: Anxiety, Depression Smoking Status: Never smoker Past Alcohol Use History: None Reported Additional Past Alcohol Use History / Comment(s): Patient was a smoker for a few years and quit 5 years ago. She denies any alcohol use, marijuana or illicit drug use. She is and lives at home with her . She retired in 2017 from [employer]. Past Drug Use History: None Reported - Past Family History Father Additional Family Medical History / Comment(s): Patient's father at age 92 from CVA. He also had a degenerative muscle disorder. Mother Additional Family Medical History / Comment(s): Mother is alive at age 90 with no major medical problems. Brother(s) Additional Family Medical History / Comment(s): Patient is a total of 4 siblings with no major medical problems. Patient has one daughter with no major medical problems. Medications and Allergies Home Medications Medication Instructions Recorded Confirmed Type ALPRAZolam [Xanax] 1 mg PO HS 08/29/19 08/29/19 History Citalopram Hydrobromide [CeleXA] 40 mg PO HS 08/29/19 08/29/19 History Pregabalin [Lyrica] 100 mg PO DAILY 08/29/19 08/29/19 History hydrOXYzine HCL [Atarax] 75 mg PO TID PRN 08/29/19 08/29/19 History traMADol HCL 50 mg PO TID PRN 08/29/19 08/29/19 History Allergies Allergy/AdvReac Type Severity Reaction Status Date / Time No Known Allergies Allergy Verified 08/29/19 22:06 Surgical - Exam Vital Signs Temp Pulse Resp BP Pulse Ox 98.1 F 71 18 160/79 98 08/29/19 18:55 08/29/19 18:55 08/29/19 18:55 08/29/19 18:55 08/29/19 18:55 - General chronically ill - Eyes PERRL - ENT normal pinna - Neck no masses - Respiratory I'm unable palpate any significant axillary lymphadenopathy normal expansion - Cardiovascular Rhythm: regular - Abdomen No significant femoral adenopathy Abdomen: soft, non tender Results - Labs 08/31/19 06:20 08/31/19 06:20 Abnormal Lab Results - Last 24 Hours (Table) 08/30/19 08/30/19 08/30/19 Range/Units 12:32 12:32 12:32 WBC (3.8-10.6) k/uL RBC (3.80-5.40) m/uL Hgb (11.4-16.0) gm/dL Hct (34.0-46.0) % Plt Count (150-450) k/uL Neutrophils # (1.3-7.7) k/uL Lymphocytes # (1.0-4.8) k/uL ESR 24 H (0-20) mm/hr Chloride (98-107) mmol/L Creatinine (0.52-1.04) mg/dL Uric Acid 7.9 H (3.7-7.4) mg/dL Calcium (8.4-10.2) mg/dL Iron 26 L (50-170) ug/dL % Saturation 7.62 L (12.00-45.00) AST (14-36) U/L Alkaline Phosphatase (38-126) U/L Total Protein (6.3-8.2) g/dL Total Protein (PEP) 5.6 L (6.2-8.2) g/dL Albumin (3.5-5.0) g/dL 08/31/19 08/31/19 Range/Units 06:20 06:20 WBC 1.2 L* (3.8-10.6) k/uL RBC 3.68 L (3.80-5.40) m/uL Hgb 10.2 L (11.4-16.0) gm/dL Hct 31.9 L (34.0-46.0) % Plt Count 41 L (150-450) k/uL Neutrophils # 0.5 L (1.3-7.7) k/uL Lymphocytes # 0.5 L (1.0-4.8) k/uL ESR (0-20) mm/hr Chloride 109 H (98-107) mmol/L Creatinine 1.42 H (0.52-1.04) mg/dL Uric Acid 8.0 H (3.7-7.4) mg/dL Calcium 8.3 L (8.4-10.2) mg/dL Iron (50-170) ug/dL % Saturation (12.00-45.00) AST 38 H (14-36) U/L Alkaline Phosphatase 237 H (38-126) U/L Total Protein 5.5 L (6.3-8.2) g/dL Total Protein (PEP) (6.2-8.2) g/dL Albumin 3.0 L (3.5-5.0) g/dL Diabetes panel 08/31/19 Range/Units 06:20 Sodium 140 (137-145) mmol/L Potassium 4.0 (3.5-5.1) mmol/L Chloride 109 H (98-107) mmol/L Carbon Dioxide 27 (22-30) mmol/L BUN 15 (7-17) mg/dL Creatinine 1.42 H (0.52-1.04) mg/dL Glucose 90 (74-99) mg/dL Calcium 8.3 L (8.4-10.2) mg/dL AST 38 H (14-36) U/L ALT 29 (4-34) U/L Alkaline Phosphatase 237 H (38-126) U/L Total Protein 5.5 L (6.3-8.2) g/dL Albumin 3.0 L (3.5-5.0) g/dL Calcium panel 08/30/19 08/31/19 Range/Units 08:12 06:20 Calcium 8.3 L (8.4-10.2) mg/dL Phosphorus 3.4 3.4 (2.5-4.5) mg/dL Albumin 3.0 L (3.5-5.0) g/dL Pituitary panel 08/31/19 Range/Units 06:20 Sodium 140 (137-145) mmol/L Potassium 4.0 (3.5-5.1) mmol/L Chloride 109 H (98-107) mmol/L Carbon Dioxide 27 (22-30) mmol/L BUN 15 (7-17) mg/dL Creatinine 1.42 H (0.52-1.04) mg/dL Glucose 90 (74-99) mg/dL Calcium 8.3 L (8.4-10.2) mg/dL Adrenal panel 08/31/19 Range/Units 06:20 Sodium 140 (137-145) mmol/L Potassium 4.0 (3.5-5.1) mmol/L Chloride 109 H (98-107) mmol/L Carbon Dioxide 27 (22-30) mmol/L BUN 15 (7-17) mg/dL Creatinine 1.42 H (0.52-1.04) mg/dL Glucose 90 (74-99) mg/dL Calcium 8.3 L (8.4-10.2) mg/dL Total Bilirubin 0.3 (0.2-1.3) mg/dL AST 38 H (14-36) U/L ALT 29 (4-34) U/L Alkaline Phosphatase 237 H (38-126) U/L Total Protein 5.5 L (6.3-8.2) g/dL Albumin 3.0 L (3.5-5.0) g/dL Assessment and Plan Assessment: Retroperitoneal lymphadenopathy. I'm unable palpate significant axillary or femoral lymphadenopathy. Patient was scheduled for ultrasound of of the axilla to determine if there is significant lymphadenopathy.
[2019-08-31 12:37] LABS: Immunoglobulin A <25.5 mg/dL (60.0-350.0); Immunoglobulin M <16.9 mg/dL (40.0-280.0)
[2019-08-31] MEDS: hydrOXYzine HCL 25 MG TAB PO PRN (13:22)
[2019-08-31] MEDS ORDERED: DICYCLOMINE 10 MG CAP PO PRN (15:55)
--- NOTE | 2019-08-31 20:20 | P.PN ---
Subjective Progress Note Date: 08/31/19 Principal diagnosis: Pancytopenia, Persistent diarrhea with neutropenia, Adenopathy persistent Patient was seen and evaluated along with GI today. She states her Diarrhea has improved although when they advanced her diet she did have cramping, urgency and diarrhea. The concern for a neutropenic colitis is resonable and we do not recommend advancing diet. We have added broad spectrum coverage. There is no PCR c-diff therefore ordered. Other stool studies negative. No fever, Infammatory markers elevated. She has had low WBC and lymhopenia in past, most recently though is neutropenia. Will trial treatment for colitis and monitor. If counts do not improve plan on bone marrow biopsy. Objective - Vital Signs Vital signs: Vital Signs Temp 98.2 F 08/31/19 11:25 Pulse 69 08/31/19 11:25 Resp 18 08/31/19 11:25 BP 156/73 08/31/19 11:25 Pulse Ox 98 08/31/19 11:25 Intake & Output 08/31/19 08/31/19 09/01/19 06:59 18:59 06:59 Intake Total 1790 600 Balance 1790 600 Intake: Intake, IV Titration 1100 600 Amount Sodium Chloride 0.9% 1, 1100 600 000 ml @ 75 mls/hr IV . [id number] [facility] Rx#:[id number] Oral 690 Other: Voiding Method Toilet Toilet # Voids 2 - Exam - Constitutional General appearance: cooperative, no acute distress - EENT Herpetic lesions on lip and open sores in nostrils Eyes: EOMI, poor dentition ENT: NA/AT, normal oropharynx -Lymphadenopathy: - on Yesterdays exam palpable in the left axilla, today harder to locate and palpate. Question inflammation versus positioning. - Respiratory Respiratory: bilateral: CTA, diminished (no increased effort) - Cardiovascular Rhythm: regular Heart sounds: normal: S1, S2 leg Peripheral Edema: bilateral: Other (Chronic bilateral edema) - Gastrointestinal Firm, bloated and distended General gastrointestinal: distended - Integumentary Integumentary: pale - Neurologic non-focal - Musculoskeletal Musculoskeletal: generalized weakness, strength equal bilaterally - Psychiatric Psychiatric: A&O x's 3, appropriate affect, intact judgment & insight - Labs CBC & Chem 7: 08/31/19 06:20 08/31/19 06:20 Labs: Abnormal Lab Results - Last 24 Hours (Table) 08/30/19 08/30/19 08/31/19 Range/Units 12:32 12:32 06:20 WBC 1.2 L* (3.8-10.6) k/uL RBC 3.68 L (3.80-5.40) m/uL Hgb 10.2 L (11.4-16.0) gm/dL Hct 31.9 L (34.0-46.0) % Plt Count 41 L (150-450) k/uL Neutrophils # 0.5 L (1.3-7.7) k/uL Lymphocytes # 0.5 L (1.0-4.8) k/uL Chloride (98-107) mmol/L Creatinine (0.52-1.04) mg/dL Uric Acid (3.7-7.4) mg/dL Calcium (8.4-10.2) mg/dL Iron 26 L (50-170) ug/dL % Saturation 7.62 L (12.00-45.00) AST (14-36) U/L Alkaline Phosphatase (38-126) U/L Total Protein (6.3-8.2) g/dL Albumin (3.5-5.0) g/dL IgA <25.5 L (60.0-350.0) mg/dL IgM <16.9 L (40.0-280.0) mg/dL 08/31/19 Range/Units 06:20 WBC (3.8-10.6) k/uL RBC (3.80-5.40) m/uL Hgb (11.4-16.0) gm/dL Hct (34.0-46.0) % Plt Count (150-450) k/uL Neutrophils # (1.3-7.7) k/uL Lymphocytes # (1.0-4.8) k/uL Chloride 109 H (98-107) mmol/L Creatinine 1.42 H (0.52-1.04) mg/dL Uric Acid 8.0 H (3.7-7.4) mg/dL Calcium 8.3 L (8.4-10.2) mg/dL Iron (50-170) ug/dL % Saturation (12.00-45.00) AST 38 H (14-36) U/L Alkaline Phosphatase 237 H (38-126) U/L Total Protein 5.5 L (6.3-8.2) g/dL Albumin 3.0 L (3.5-5.0) g/dL IgA (60.0-350.0) mg/dL IgM (40.0-280.0) mg/dL Assessment and Plan (1) Pulmonary nodules Current Visit: Yes Status: Acute Code(s): R91.8 - OTHER NONSPECIFIC ABNORMAL FINDING OF LUNG FIELD SNOMED Code(s): 360132898 (2) Pancytopenia Current Visit: Yes Status: Acute Code(s): D61.818 - OTHER PANCYTOPENIA SNOMED Code(s): 816614858 (3) Hypogammaglobulinaemia, unspecified Current Visit: Yes Status: Acute Code(s): D80.1 - NONFAMILIAL HYPOGAMMAGLO BULINEMIA SNOMED Code(s): 961165743 (4) Diarrhea Current Visit: Yes Status: Acute Code(s): R19.7 - DIARRHEA, UNSPECIFIED SNOMED Code(s): 04138895 (5) Splenomegaly Current Visit: Yes Status: Acute Code(s): R16.1 - SPLENOMEGALY, NOT ELSEWHERE CLASSIFIED SNOMED Code(s): 22718152 Plan: Assessment and Recommendation Pancytopenia: - Normocytic anemia: - THrombocytopenia: Less than 50K no NSAIDS, or Aspirin, or VTE prophylaxis with less than 50K - Lymphocytopenia and Neutropenia: Will need to confirm diagnosis prior to initiation growth factor in case picture is of acute leukemia (less likely) - FLow cytometry on Lymph node biopsy and on peripheral blood - Pancytopenia work-up ordered Diffuse Adenopathy: - This has been present on prior imaging from 2013, although has increased in size and now within retroperitoneum - With the picture of hypogammaglobulemia, cytopenias, and adenopathy must consider malignancy, more specifically a lymphoma/leukemia (chronic) etiology - Uric acid and LDH - Uric Acid increased 8 - We have asked General surgery for excisional lymph node biopsy - unable to re-palpate today, await Ultrasound for Persistent Diarrhea - Stool studies negative, CONCERN for neutropenia colitis - Retrict PO intake - Clear liquids - GI consult placed - Recommend antibiotic - will start Flagyl/Zosyn Abdominal Pain and Cramping - Repeat Flat Plate - Abdomen increased firm and distended today Bilateral Pulmonary Nodules - Have been present since 2014 never have they been biopsied Hypogammaglobulemia -Follows [facility] strip picker Dr. Cardona - Weekly IVIG injections Discussed with patient and GI Antibiotics Continue diet restriction Monitor Daily CBC Discussed with Dr. Navarro in full. Discussed with ID and consult placed The concern for a neutropenic colitis is in the differential, with her chronic immunosuppression a fever maybe absent. we do not recommend advancing diet. We have added broad spectrum coverage. There is no PCR c-diff therefore ordered. Other stool studies negative. No fever, Infammatory markers elevated. She has had low WBC and lymhopenia in past, most recently though is neutropenia. Will trial treatment for colitis and monitor CBC Closely. If counts do not improve plan on bone marrow biopsy. If GS is able to find a lymph node to biopsy (excisional preferred as these are increased in size and new)
[2019-08-31] MEDS: CITALOPRAM HYDROBROMIDE 20 MG TAB PO SCH (21:39)
[2019-08-31] MEDS: ALPRAZolam 1 MG TAB PO SCH (21:39)
[2019-08-31] MEDS: metroNIDAZOLE-NS PMX 500 MG in SALINE 1 100ML.BAG IVPB SCH (23:53)
[2019-09-01] MEDS: PIPERACILLIN-TAZOBACTAM 3.375 GM in SODIUM CHLORIDE 0.9% 100 ML IVPB SCH ×3 (01:13→15:58)
--- NOTE | 2019-09-01 07:15 | P.CONS ---
History of Present Illness - Reason for Consult Consult date: 08/31/19 Diarrhea Requesting physician: Ermias Kidd - Chief Complaint Diarrhea - History of Present Illness 68-year-old female with medical history significant for common variable immune deficiency following at the [facility], chronic constipation, hypertension and ALLERGIC rhinitis who presented with complaints of new onset diarrhea and abdominal cramping. The patient's diarrhea has been subacute approximately occurring over the last few weeks to months. She reports having 5-6 loose bowel movements daily. Previously bowel movements have been on the constipated side every few days for her whole life. She denies any blood per rectum or dark tarry stools. She does report lower abdominal cramping. The patient had stool studies in the outpatient setting which were all negative. Currently she is being evaluated for laboratory abnormalities including pancyt openia with WBC 1.4, hemoglobin 10.7 and platelet count 45,000 with findings of retroperitoneal adenopathy on computed tomography scan of the abdomen with colitis reported as difficult to exclude. She also had findings of splenomegaly. The patient was given Imodium and Questran yesterday and reports that bowel movements have improved. She is unsure of her last colonoscopy but believes it was non-approximately 2 years ago, however this cannot be found in the medical record. Review of Systems REVIEW OF SYSTEMS: CONSTITUTIONAL: Denies any fevers, chills, weight change or fatigue. CARDIOVASCULAR: Denies any chest pain, palpitations high or low blood pressures RESPIRATORY: Denies any shortness of breath, hemoptysis or cough. GENITOURINARY: No dysuria or hematuria. MUSCULOSKELETAL: No weakness reported. SKIN: Denies any new rashes or lesions, jaundice or pallor, history of dermatitis. PSYCHIATRIC: Denies any depression or anxiety. NEUROLOGY: Denies headache, denies any new focal deficits. EARS/NOSE/THROAT: No recent hearing change, congestion, nasal discharge or sore throat. EYES: No pain in eyes, discharge or change in vision. GASTROINTESTINAL: As per HPI. 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 Severe recalcitrant dermatitis, Allergic rhinitis. History of Any Multi-Drug Resistant Organisms: MRSA Year Discovered:: 08/14/2009 MDRO Source:: Open wound. Past Surgical History: Hysterectomy Additional Past Surgical History / Comment(s): common variable immune deficicency. Additional Past Anesthesia/Blood Transfusion Reaction / Comm: Slow to wake up. Past Psychological History: Anxiety, Depression Smoking Status: Never smoker Past Alcohol Use History: None Reported Additional Past Alcohol Use History / Comment(s): Patient was a smoker for a few years and quit 5 years ago. She denies any alcohol use, marijuana or illicit drug use. She is and lives at home with her . She retired in 2017 from [employer]. Past Drug Use History: None Reported - Past Family History Father Additional Family Medical History / Comment(s): Patient's father at age 92 from CVA. He also had a degenerative muscle disorder. Mother Additional Family Medical History / Comment(s): Mother is alive at age 90 with no major medical problems. Brother(s) Additional Family Medical History / Comment(s): Patient is a total of 4 siblings with no major medical problems. Patient has one daughter with no major medical problems. Medications and Allergies Home Medications Medication Instructions Recorded Confirmed Type ALPRAZolam [Xanax] 1 mg PO HS 08/29/19 08/29/19 History Citalopram Hydrobromide [CeleXA] 40 mg PO HS 08/29/19 08/29/19 History Pregabalin [Lyrica] 100 mg PO DAILY 08/29/19 08/29/19 History hydrOXYzine HCL [Atarax] 75 mg PO TID PRN 08/29/19 08/29/19 History traMADol HCL 50 mg PO TID PRN 08/29/19 08/29/19 History Allergies Allergy/AdvReac Type Severity Reaction Status Date / Time No Known Allergies Allergy Verified 08/29/19 22:06 Physical Exam Vitals: Vital Signs Temp Pulse Resp BP Pulse Ox 08/31/19 11:25 98.2 F 69 18 156/73 98 08/31/19 05:59 97 08/31/19 05:00 97.2 F L 66 18 123/67 92 L 08/30/19 21:00 98.2 F 64 18 159/73 97 Intake and Output 08/30/19 08/31/19 08/31/19 22:59 06:59 14:59 Intake Total 600 1190 Balance 600 1190 Intake: Intake, IV Titration 500 600 Amount Sodium Chloride 0.9% 1, 500 600 000 ml @ 75 mls/hr IV . [id number] [facility] Rx#:[id number] Oral 100 590 Other: Voiding Method Toilet Toilet # Voids 1 2 On physical examination, patient appears comfortable in no apparent distress. HEAD: Normocephalic, atraumatic. EYES: No scleral icterus. No conjunctival injection. MOUTH: No lesions, tongue midline. NECK: Trachea midline, no gross abnormalities. CHEST: Clear to auscultation with no wheezing or rhonchi appreciated. HEART: Regular rate and rhythm. ABDOMEN: Soft, obese. Bowel sounds are positive. No organomegaly. No guarding or rigidity. EXTREMITIES: No pedal edema. SKIN: No rashes, no jaundice. NEUROLOGIC: Alert and oriented x3. No focal deficits. Results CBC & Chem 7: 08/31/19 06:08/31/19 06:20 Labs: Abnormal Lab Results - Last 24 Hours (Table) 08/30/19 08/30/19 08/30/19 Range/Units 12:32 12:32 12:32 WBC (3.8-10.6) k/uL RBC (3.80-5.40) m/uL Hgb (11.4-16.0) gm/dL Hct (34.0-46.0) % Plt Count (150-450) k/uL Neutrophils # (1.3-7.7) k/uL Lymphocytes # (1.0-4.8) k/uL ESR 24 H (0-20) mm/hr Chloride (98-107) mmol/L Creatinine (0.52-1.04) mg/dL Uric Acid 7.9 H (3.7-7.4) mg/dL Calcium (8.4-10.2) mg/dL Iron 26 L (50-170) ug/dL % Saturation 7.62 L (12.00-45.00) AST (14-36) U/L Alkaline Phosphatase (38-126) U/L Total Protein (6.3-8.2) g/dL Total Protein (PEP) 5.6 L (6.2-8.2) g/dL Albumin (3.5-5.0) g/dL IgA (60.0-350.0) mg/dL IgM (40.0-280.0) mg/dL 06/16/20 06/17/20 06/17/20 Range/Units 12:32 06:20 06:20 WBC 1.2 L* (3.8-10.6) k/uL RBC 3.68 L (3.80-5.40) m/uL Hgb 10.2 L (11.4-16.0) gm/dL Hct 31.9 L (34.0-46.0) % Plt Count 41 L (150-450) k/uL Neutrophils # 0.5 L (1.3-7.7) k/uL Lymphocytes # 0.5 L (1.0-4.8) k/uL ESR (0-20) mm/hr Chloride 109 H (98-107) mmol/L Creatinine 1.42 H (0.52-1.04) mg/dL Uric Acid 8.0 H (3.7-7.4) mg/dL Calcium 8.3 L (8.4-10.2) mg/dL Iron (50-170) ug/dL % Saturation (12.00-45.00) AST 38 H (14-36) U/L Alkaline Phosphatase 237 H (38-126) U/L Total Protein 5.5 L (6.3-8.2) g/dL Total Protein (PEP) (6.2-8.2) g/dL Albumin 3.0 L (3.5-5.0) g/dL IgA <25.5 L (60.0-350.0) mg/dL IgM <16.9 L (40.0-280.0) mg/dL CT scan - abdomen: report reviewed (Computed tomography scan abdomen with retroperitoneal adenopathy, splenomegaly and cannot exclude colitis.) Assessment and Plan (1) Diarrhea Narrative/Plan: 68-year-old female who presented to the hospital with diarrhea occurring over the past month reported as 5-6 loose bowel movements daily without signs or symptoms of GI bleeding with associated lower abdominal cramping. No prior history of diarrhea with the patient reporting chronic constipation at baseline. The patient had stool studies in the outpatient setting which were negative. Computed tomography scan of the abdomen did show splenomegaly and retroperitoneal adenopathy with suspicion for possible lymphoma with colitis not excluded. Unclear etiology of symptoms, however the patient does report celiac testing in the past which was negative, may be related to image pancolitis or other etiology. She has had synthetic improvement with antidiarrheals. Current Visit: Yes Status: Acute Code(s): R19.7 - DIARRHEA, UNSPECIFIED SNOMED Code(s): 96528295 (2) Abdominal pain Current Visit: Yes Status: Acute Code(s): R10.9 - UNSPECIFIED ABDOMINAL PAIN SNOMED Code(s): 65822553 (3) Hypogammaglobulinaemia, unspecified Current Visit: Yes Status: Acute Code(s): D80.1 - NONFAMILIAL HYPOGAMMAGLOBULINEMIA SNOMED Code(s): 762232983 (4) Pancytopenia Current Visit: Yes Status: Acute Code(s): D61.818 - OTHER PANCYTOPENIA SNOMED Code(s): 727135200 Plan: Supportive care Okay for full liquid diet Trial of dicyclomine for abdominal cramping Continue evaluation by hematology/oncology and surgical service for possible underlying malignancy Continue symptomatically treatment with antidiarrheals and/or cholestyramine We'll continue to monitor stool output No plans for colonoscopic evaluation at this time, however will continue to monitor her symptomatically and reevaluate if symptoms persist Thank you for allowing us to participate in the care of the patient
[2019-09-01 07:45] LABS: Albumin 2.9 g/dL (3.5-5.0); Calcium 8.4 mg/dL (8.4-10.2); HCT 30.2 % (34.0-46.0); HGB 9.5 gm/dL (11.4-16.0); Hypochromasia Slight; MCH 27.1 pg (25.0-35.0); MCHC 31.4 g/dL (31.0-37.0); MCV 86.2 fL (80.0-100.0); Potassium 4.2 mmol/L (3.5-5.1); RBC 3.51 m/uL (3.80-5.40); RDW 14.6 % (11.5-15.5); Total Bilirubin 0.5 mg/dL (0.2-1.3); Total Protein 5.5 g/dL (6.3-8.2)
[2019-09-01 07:54] LABS: WBC 1.1 k/uL (3.8-10.6)
[2019-09-01 07:55] LABS: Platelet Count 38 k/uL (150-450)
--- NOTE | 2019-09-01 07:55 | P.PN ---
Progress Note - Text Progress Note Date: 09/01/19 Patient feels better today. She is asked and bleeding polyp. On exam vital signs appear stable. Abdomen soft. Patient is scheduled for ultrasound of the axilla to evaluate for possible lymphadenopathy. We will await for the ultrasound to see if any significant axillary lymph nodes prior to biopsy.
[2019-09-01] MEDS: CHOLESTYRAMINE (WITH SUGAR) 4 GM PACKET PO SCH ×4 (08:37→20:54)
--- NOTE | 2019-09-01 08:40 | US ---
EXAMINATION TYPE: US axilla RT DATE OF EXAM: 09/01/2019 COMPARISON: CT Chest dated 08/29/2019 CLINICAL HISTORY: Lymphadenopathy. Lymphadenopathy One lymph node visualized within right axilla= 0.7 cm IMPRESSION: No evident adenopathy.
[2019-09-01] MEDS: metroNIDAZOLE-NS PMX 500 MG in SALINE 1 100ML.BAG IVPB SCH ×3 (08:41→23:32)
[2019-09-01] MEDS: PANTOPRAZOLE 40 MG TABLET PO SCH (08:41)
[2019-09-01] MEDS: ACYCLOVIR 800 MG TAB PO SCH ×3 (08:41→21:01)
[2019-09-01] MEDS: PREGABALIN 100 MG CAP PO SCH (08:41)
--- NOTE | 2019-09-01 08:45 | US ---
EXAMINATION TYPE: US axilla LT DATE OF EXAM: 09/01/2019 COMPARISON: CT Chest dated 08/29/2019 CLINICAL HISTORY: Lymphadenopathy. Lymphadenopathy Two lymph nodes visualized 1)= 1.2 cm enlarged/hypoechoic 2)= 0.9 cm, thickened Limited left axillary ultrasound. IMPRESSION: Enlarged node is identified. Second node with abnormal thickening is suspected.
[2019-09-01 12:42] LABS: INR 0.9 (<1.2); Prothrombin Time 9.9 sec (9.0-12.0)
[2019-09-01 12:45] LABS: Uric Acid 7.8 mg/dL (3.7-7.4)
--- NOTE | 2019-09-01 13:48 | P.PN ---
Subjective Progress Note Date: 09/01/19 This is a 68-year-old female patient of Dr. Figueroa with past medical history of common variable immune deficiency follows with camera assembler Dr. Cardona in [facility], on Hizentra weekly. Patient gives history of having diarrhea for several weeks up to one month. She also has abdominal pain /cramping that she describes as a discomfort in the lower abdominal quadrants. She thinks her last colonoscopy was 3 years ago but most likely longer is there is no report on record here. She has had no recent hospitalizations. She states she has lost 10 pounds. No nausea or vomiting, no fever or chills. No cough. No chest pain. She does have lower extremity edema which is been chronic. She denies any dysuria. She denies any previous history of cancer. She has had no follow-up with Dr. Wu. He did perform a CAT scan of the chest to rule out lung cancer in 2013. Last Thursday, patient contacted her PCP office and stool specimen was provided for testing: Cryptosporidium negative, Giardia negative, C. difficile toxin negative. She received a call from the office yesterday and she was told that her culture was negative. Patient states that she was still having diarrhea and abdominal discomfort and was told to take Imodium and an appointment was set up for October 10. Patient was not happy with this and sought treatment by coming into the hospital. Patient presented to [facility] emergency center for evaluation. She was found to have a white count of 1.6, hemoglobin 11.9, platelet count 63. BUN 18 and creatinine 1.51. Electrolytes normal, blood conteh gar 135. AST 40, ALT 31, alkaline phosphatase 294, lipase 593. Urinalysis was negative. CAT scan of the abdomen pelvis without contrast revealed retroperitoneal adenopathy, splenomegaly, correlate for lymphoma, leukemia, metastatic disease. Difficult to exclude colitis. Nondescript inflammatory changes about the gallbladder. Subsequently, a CAT scan of the chest was ordered without contrast which revealed multiple pulmonary nodules, mediastinal and hilar adenopathy. Aortic aneurysm, pulmonary aortic hypertension may be present. Possible portal hypertension. Patient has been admitted to the [facility] floor, oncology consult and abdominal ultrasound ordered to evaluate gallbladder and liver. 08/30: Patient has been seen by oncology and consults were added for Dr. Rivero for lymph node biopsy from the axilla. This has not yet been scheduled. Patient is also had a consult added for Dr. Baird for diarrhea. Patient states that Imodium significantly helped diarrhea yesterday. She is feeling better in general. Ultrasound of the gallbladder region revealed minimal ascites. Hydropic gallbladder. Patient has been afebrile, heart rate 66, blood pressure 123/67, pulse ox 97% on room air. Repeat blood work reveals WBC 1.2, hemoglobin 10.2, platelet 41. Subcu heparin will be discontinued. Other lab work reveals uric acid of 8, iron 26, TIBC 341, iron saturation 7.62, ferritin 50.7, LDH 3.88, total protein PEEP 5.6, vitamin B12 847, folate 18.6. Repeat lipase is 236. Rheumatoid factor is 7, TANIA screen negative. Free Of 0.92 and free lambda 0.65. Coronavirus testing negative. Anticipate possible discharge tomorrow and patient will follow-up for pathology report. 08/31: Patient has been seen by Dr. Rivero and ultrasound of the axilla bilaterally up and done. The right axilla had no evident adenopathy. Left axilla has [address] Rivero will not be doing biopsy. Oncology will make arrangements for interventional radiology to perform biopsy from abdominal/pelvic lymph node and schedule patient for bone marrow biopsy. There was a consult added for infectious disease regarding neutropenic colitis. Flagyl and Levaquin were started yesterday. GI is not planning for any intervention at this point. Patient's diarrhea has resolved after her first dose of Imodium. She states she still has slight discomfort but no cramping and no diarrhea. She denies any nausea vomiting. She is currently on a full liquid diet to be advanced to regular. Repeat lab work reveals WBC 1.1, hemoglobin 9.5, platelet count 38. Sodium 139, potassium 4.2, chloride 110, CO2 25, BUN 15 and creatinine 1.57, INR 0.9. AST is 42, ALT 31, appointment possibly 240, LDH 428 lactic acid 0.8, uric acid 7.8. Review Of Systems: Constitutional: No fever, no chills, no night sweats. Reports weight loss. No weakness, fatigue or lethargy. No daytime sleepiness. EENT: No headache. No blurred vision or double vision, no loss of vision. No loss of Hearing, no ringing in the ears, no dizziness. No nasal drainage or congestion. No epistaxis. No sore throat. Lungs: No shortness of breath, cough, no sputum production. No wheezing. Cardiovascular: No chest pain, no lower extremity edema. No palpitations. No paroxysmal nocturnal dyspnea. No orthopnea. No lightheadedness or dizziness. No syncopal episodes. Abdominal: Reports abdominal discomfort. No nausea, vomiting. Denies diarrhea, resolved. No constipation. No bloody or tarry stools. No loss of appetite. Genitourinary: No dysuria, increased frequency, urgency. No urinary retention. Musculoskeletal: No myalgias. No muscle weakness, no gait dysfunction, no frequent falls. No back pain. No neck pain. Integumentary: No wounds, no lesions. No rash or pruritus. No unusual bruising. No change in hair or nails. Neurologic: No aphasia. No facial droop. No change in mentation. No head injury. No headache. No paralysis. No paresthesia. Psychiatric: No depression. No anxiety. No mood swings. Endocrine: No abnormal blood sugars. Reports weight loss. No excessive sweating or thirst. No cold intolerance. Physical examination Gen: This is a 68-year-old female. Patient is resting in bed and appears to be comfortable and in no acute distress. HEENT: Head is atraumatic, normocephalic. Pupils equal, round. Sclerae is anicteric. Oral mucous membranes are slightly dry. NECK: Supple. No JVD. No lymphadenopathy. No thyromegaly. No lymphadenopathy noted in the neck, groin areas. Small lymph nodes palpated in the axilla. LUNGS: Clear to auscultation. No wheezes or rhonchi. No intercostal retractions. HEART: Regular rate and rhythm. No murmur. ABDOMEN: Soft. Bowel sounds are present. No masses. Minimal lower abdominal tenderness. Palpated and large spleen and borderline enlarged liver. EXTREMITIES: Trace bilateral pedal edema. No calf tenderness. Dorsalis pedis +2 bilaterally. NEUROLOGICAL: Patient is awake, alert and oriented x3. Cranial nerves 2 through 12 are grossly intact. Assessment and plan 1. Abdominal pain and diarrhea of unclear etiology, possible colitis. Continue Imodium as needed for diarrhea. Continue IV fluids. GI consult appreciated. No plan for intervention. Diet to be advanced. Consult with Dr. Stout was added. Continue Flagyl and Levaquin. 2. Acute kidney injury. Avoid nephrotoxic agents. 3. Retroperitoneal adenopathy, pulmonary nodules and splenomegaly, rule out non-Hodgkin's lymphoma, MALT. Ultrasound of the gallbladder/liver as above. Consult with oncology appreciated. Lymph node biopsy and bone marrow biopsy to be obtained. 4. Bicytopenia with leukopenia and thrombocytopenia. Consult with oncology. Repeat lab work in the morning. 5. History of common variable immune deficiency under the care of Dr. Cardona [facility]. Patient is on Hizentra weekly. 6. Generalized anxiety disorder. Continue Xanax 0.5 mg at bedtime, Celexa 40 mg at bedtime. 7. Chronic kidney disease stage III. Baseline creatinine 1.3. Continue IV fluids at 50 mL per hour. 8. DVT prophylaxis. Heparin subcu every 12 hours. 9. GI prophylaxis. Protonix daily. 10. COVID-19 infection not present. Discharge plan: Home Impression and plan of care have been directed as dictated by the signing physician. Lorna Machado nurse practitioner acting as scribe for signing physician. Objective - Vital Signs Vital signs: Vital Signs Temp 98.8 F 09/01/19 05:00 Pulse 68 09/01/19 05:00 Resp 18 09/01/19 05:00 BP 124/69 09/01/19 05:00 Pulse Ox 97 09/01/19 05:55 Intake & Output 08/31/19 09/01/19 09/01/19 18:59 06:59 18:59 Intake Total 600 700 Balance 600 700 Intake: Intake, IV Titration 600 200 Amount Piperacillin-Tazobactam 3 100 .375 gm In Sodium Chloride 0.9% 100 ml @ 25 mls/hr IVPB Q8HR [facility] Rx# :[id number] Sodium Chloride 0.9% 1, 600 000 ml @ 75 mls/hr IV . [id number] [facility] Rx#:[id number] metroNIDAZOLE-NS PMX 500 100 mg In Saline 1 100ml.bag @ 100 mls/hr IVPB Q8HR [facility] Rx#:[id number] Oral 500 Other: Voiding Method Toilet Toilet # Voids 2 - Labs CBC & Chem 7: 09/01/19 05:45 09/01/19 05:45 Labs: Abnormal Lab Results - Last 24 Hours (Table) 08/30/19 08/31/19 09/01/19 Range/Units 12:32 06:20 05:45 WBC 1.2 L* (3.8-10.6) k/uL RBC 3.68 L (3.80-5.40) m/uL Hgb 10.2 L (11.4-16.0) gm/dL Hct 31.9 L (34.0-46.0) % Plt Count 41 L (150-450) k/uL Neutrophils # 0.5 L (1.3-7.7) k/uL Lymphocytes # 0.5 L (1.0-4.8) k/uL Chloride 110 H (98-107) mmol/L Creatinine 1.57 H (0.52-1.04) mg/dL AST 42 H (14-36) U/L Alkaline Phosphatase 240 H (38-126) U/L Total Protein 5.5 L (6.3-8.2) g/dL Albumin 2.9 L (3.5-5.0) g/dL IgA <25.5 L (60.0-350.0) mg/dL IgM <16.9 L (40.0-280.0) mg/dL 09/01/19 Range/Units 05:45 WBC 1.1 L* (3.8-10.6) k/uL RBC 3.51 L (3.80-5.40) m/uL Hgb 9.5 L (11.4-16.0) gm/dL Hct 30.2 L (34.0-46.0) % Plt Count 38 L (150-450) k/uL Neutrophils # (1.3-7.7) k/uL Lymphocytes # (1.0-4.8) k/uL Chloride (98-107) mmol/L Creatinine (0.52-1.04) mg/dL AST (14-36) U/L Alkaline Phosphatase (38-126) U/L Total Protein (6.3-8.2) g/dL Albumin (3.5-5.0) g/dL IgA (60.0-350.0) mg/dL IgM (40.0-280.0) mg/dL
[2019-09-01 14:13] LABS: Albumin 3.07 g/dL (3.80-4.90); Gamma Globulin 0.76 g/dL (0.70-1.50)
[2019-09-01] MEDS: ALLOPURINOL 300 MG TAB PO SCH (14:51)
[2019-09-01] MEDS: SODIUM CHLORIDE 0.9% 1,000 ML IV SCH (14:54)
[2019-09-01] MEDS ORDERED: PETROLATUM, WHITE OINT 50 GM TUBE TOPICAL PRN (15:03)
[2019-09-01] MEDS ORDERED: HYDROCORTISONE 1% CREAM 30 GM TUBE TOPICAL PRN (15:04)
[2019-09-01] MEDS: hydrOXYzine HCL 25 MG TAB PO PRN (16:33)
--- NOTE | 2019-09-01 17:09 | P.PN ---
Subjective Progress Note Date: 09/01/19 Principal diagnosis: Pancytopenia, Persistent diarrhea with neutropenia, Adenopathy persistent Patient is a poor historian as she cannot confirm when she has had diarrhea, or abdominal cramping. She states it was after chicken yesterday but then states none since. She actually had a more formed stool today and denies abdominal pain at this time. She says she feels better since antibiotics started. Therefore slowing advancing diet and monitoring closely. If abdominal pain or diarrhea will need to hold po intake again Pancytopenia worsening, I have spoke to primary team and Interventional. Will plan for Bone Marrow Biopsy tomorrow and possible Retroperitoneal Lymph Node b iopsy and both will be sent for flow. Objective - Vital Signs Vital signs: Vital Signs Temp 98.8 F 09/01/19 05:00 Pulse 68 09/01/19 05:00 Resp 18 09/01/19 05:00 BP 124/69 09/01/19 05:00 Pulse Ox 97 09/01/19 05:55 Intake & Output 08/31/19 09/01/19 09/01/19 18:59 06:59 18:59 Intake Total 600 700 Balance 600 700 Intake: Intake, IV Titration 600 200 Amount Piperacillin-Tazobactam 3 100 .375 gm In Sodium Chloride 0.9% 100 ml @ 25 mls/hr IVPB Q8HR [facility] Rx# :[id number] Sodium Chloride 0.9% 1, 600 000 ml @ 75 mls/hr IV . [id number] [facility] Rx#:[id number] metroNIDAZOLE-NS PMX 500 100 mg In Saline 1 100ml.bag @ 100 mls/hr IVPB Q8HR [facility] Rx#:[id number] Oral 500 Other: Voiding Method Toilet Toilet Toilet # Voids 2 - Exam - Constitutional General appearance: cooperative, no acute distress - EENT Herpetic lesions on lip and open sores in nostrils Eyes: EOMI, poor dentition ENT: NA/AT, normal oropharynx -Lymphadenopathy: - on Yesterdays exam palpable in the left axilla, today harder to locate and palpate. Question inflammation versus positioning. - Respiratory Respiratory: bilateral: CTA, diminished (no increased effort) - Cardiovascular Rhythm: regular Heart sounds: normal: S1, S2 leg Peripheral Edema: bilateral: Other (Chronic bilateral edema) - Gastrointestinal Firm, bloated and distended General gastrointestinal: distended - Integumentary Integumentary: pale - Neurologic non-focal - Musculoskeletal Musculoskeletal: generalized weakness, strength equal bilaterally - Psychiatric Psychiatric: A&O x's 3, appropriate affect, intact judgment & insight - Labs CBC & Chem 7: 09/01/19 05:45 09/01/19 05:45 Labs: Abnormal Lab Results - Last 24 Hours (Table) 08/30/19 08/30/19 09/01/19 Range/Units 12:32 12:32 05:45 WBC (3.8-10.6) k/uL RBC (3.80-5.40) m/uL Hgb (11.4-16.0) gm/dL Hct (34.0-46.0) % Plt Count (150-450) k/uL Chloride 110 H (98-107) mmol/L Creatinine 1.57 H (0.52-1.04) mg/dL AST 42 H (14-36) U/L Alkaline Phosphatase 240 H (38-126) U/L Total Protein 5.5 L (6.3-8.2) g/dL Albumin 2.9 L (3.5-5.0) g/dL Methylmalonic Acid 0.54 H (<0.40) umol/L IgA <25.5 L (60.0-350.0) mg/dL IgM <16.9 L (40.0-280.0) mg/dL 09/01/19 Range/Units 05:45 WBC 1.1 L* (3.8-10.6) k/uL RBC 3.51 L (3.80-5.40) m/uL Hgb 9.5 L (11.4-16.0) gm/dL Hct 30.2 L (34.0-46.0) % Plt Count 38 L (150-450) k/uL Chloride (98-107) mmol/L Creatinine (0.52-1.04) mg/dL AST (14-36) U/L Alkaline Phosphatase (38-126) U/L Total Protein (6.3-8.2) g/dL Albumin (3.5-5.0) g/dL Methylmalonic Acid (<0.40) umol/L IgA (60.0-350.0) mg/dL IgM (40.0-280.0) mg/dL Assessment and Plan (1) Pulmonary nodules Current Visit: Yes Status: Acute Code(s): R91.8 - OTHER NONSPECIFIC ABNORMAL FINDING OF LUNG FIELD SNOMED Code(s): 908409605 (2) Pancytopenia Current Visit: Yes Status: Acute Code(s): D61.818 - OTHER PANCYTOPENIA SNOMED Code(s): 042885693 (3) Hypogammaglobulinaemia, unspecified Current Visit: Yes Status: Acute Code(s): D80.1 - NONFAMILIAL HYPOGAMMAGLOBULINEMIA SNOMED Code(s): 069948799 (4) Diarrhea Current Visit: Yes Status: Acute Code(s): R19.7 - DIARRHEA, UNSPECIFIED SNOMED Code(s): 56342533 (5) Splenomegaly Current Visit: Yes Status: Acute Code(s): R16.1 - SPLENOMEGALY, NOT ELSEWHERE CLASSIFIED SNOMED Code(s): 29046240 Plan: Assessment and Recommendation Pancytopenia: - Normocytic anemia: - THrombocytopenia: Less than 50K no NSAIDS, or Aspirin, or VTE prophylaxis with less than 50K - Lymphocytopenia and Neutropenia: Will need to confirm diagnosis prior to initiation growth factor in case picture is of acute leukemia (less likely) - FLow cytometry on Lymph node biopsy and on peripheral blood - Pancytopenia work-up reviewed. No apparent Etiology of other causes found Diffuse Adenopathy: - This has been present on prior imaging from 2014, although has increased in size and now within retroperitoneum - With the picture of hypogammaglobulemia, cytopenias, and adenopathy must consider malignancy, more specifically a lymphoma/leukemia (chronic) etiology - Uric acid and LDH - Uric Acid increased 8 - We have asked General surgery for excisional lymph node biopsy although U/S shows LN in axilla is 1.2cm very small - We have asked IR to biopsy intrabdominal node and BM Increased Uric Acid: - Allopurinol initiated Persistent Diarrhea - Improved/Resolving - Stool studies negative, CONCERN for neutropenia colitis - Ok to slowly advance diet since improving - Recommend antibiotic - will continue Flagyl/Zosyn Abdominal Pain and Cramping - Improved today - Abdomen increased firm and distended today Bilateral Pulmonary Nodules - Have been present since 2014 never have they been biopsied Hypogammaglobulemia -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 Will give platelets prior - Monitor for abdominal pain and/or recurrent diarrhea with advancing diet
[2019-09-01] MEDS: CITALOPRAM HYDROBROMIDE 20 MG TAB PO SCH (21:01)
[2019-09-01] MEDS: ALPRAZolam 1 MG TAB PO SCH (21:01)
[2019-09-02] MEDS: PIPERACILLIN-TAZOBACTAM 3.375 GM in SODIUM CHLORIDE 0.9% 100 ML IVPB SCH ×3 (00:38→16:59)
--- NOTE | 2019-09-02 06:41 | P.PN ---
Subjective Progress Note Date: 09/01/19 Principal diagnosis: Abdominal pain, diarrhea Patient is seen sitting bedside. She reports abdominal pain improving overall. She also had one formed nonbloody bowel movement today. No nausea or vomiting. Objective - Vital Signs Vital signs: Vital Signs Temp 98.2 F 09/01/19 11:48 Pulse 69 09/01/19 11:48 Resp 17 09/01/19 11:48 BP 154/74 09/01/19 11:48 Pulse Ox 96 09/01/19 11:48 Intake & Output 08/31/19 09/01/19 09/01/19 18:59 06:59 18:59 Intake Total 600 700 200 Balance 600 700 200 Intake: Intake, IV Titration 600 200 200 Amount Piperacillin-Tazobactam 3 100 100 .375 gm In Sodium Chloride 0.9% 100 ml @ 25 mls/hr IVPB Q8HR [facility] Rx# :[id number] Sodium Chloride 0.9% 1, 600 000 ml @ 75 mls/hr IV . [id number] [facility] Rx#:[id number] metroNIDAZOLE-NS PMX 500 100 100 mg In Saline 1 100ml.bag @ 100 mls/hr IVPB Q8HR [facility] Rx#:[id number] Oral 500 Other: Voiding Method Toilet Toilet Toilet # Voids 2 - Exam On physical examination, patient appears comfortable in no apparent distress. HEAD: Normocephalic, atraumatic. EYES: No scleral icterus. No conjunctival injection. MOUTH: No lesions, tongue midline. NECK: Trachea midline, no gross abnormalities. ABDOMEN: Soft, obese. Bowel sounds are positive. No organomegaly. No guarding or rigidity. EXTREMITIES: No pedal edema. SKIN: No rashes, no jaundice. NEUROLOGIC: Alert and oriented x3. No focal deficits. - Labs CBC & Chem 7: 09/01/19 05:45 09/01/19 05:45 Labs: Abnormal Lab Results - Last 24 Hours (Table) 08/30/19 09/01/19 09/01/19 Range/Units 12:32 05:45 05:45 WBC 1.1 L* (3.8-10.6) k/uL RBC 3.51 L (3.80-5.40) m/uL Hgb 9.5 L (11.4-16.0) gm/dL Hct 30.2 L (34.0-46.0) % Plt Count 38 L (150-450) k/uL Chloride 110 H (98-107) mmol/L Creatinine 1.57 H (0.52-1.04) mg/dL Uric Acid (3.7-7.4) mg/dL AST 42 H (14-36) U/L Alkaline Phosphatase 240 H (38-126) U/L Total Protein 5.5 L (6.3-8.2) g/dL Albumin 2.9 L (3.5-5.0) g/dL Methylmalonic Acid 0.54 H (<0.40) umol/L // Range/Units 12:08 WBC (3.8-10.6) k/uL RBC (3.80-5.40) m/uL Hgb (11.4-16.0) gm/dL Hct (34.0-46.0) % Plt Count (150-450) k/uL Chloride (98-107) mmol/L Creatinine (0.52-1.04) mg/dL Uric Acid 7.8 H (3.7-7.4) mg/dL AST (14-36) U/L Alkaline Phosphatase (38-126) U/L Total Protein (6.3-8.2) g/dL Albumin (3.5-5.0) g/dL Methylmalonic Acid (<0.40) umol/L Assessment and Plan (1) Diarrhea Narrative/Plan: 68-year-old female who presented to the hospital with diarrhea occurring over the past month reported as 5-6 loose bowel movements daily without signs or symptoms of GI bleeding with associated lower abdominal cramping. No prior history of diarrhea with the patient reporting chronic constipation at baseline. The patient had stool studies in the outpatient setting which were negative. Computed tomography scan of the abdomen did show splenomegaly and retroperitoneal adenopathy with suspicion for possible lymphoma with colitis not excluded. Unclear etiology of symptoms, however the patient does report celiac testing in the past which was negative, may be related to image pancolitis or other etiology. She has had improvement with antidiarrheals. Current Visit: Yes Status: Acute Code(s): R19.7 - DIARRHEA, UNSPECIFIED SNOMED Code(s): 18828548 (2) Abdominal pain Current Visit: Yes Status: Acute Code(s): R10.9 - UNSPECIFIED ABDOMINAL PAIN SNOMED Code(s): 72746779 (3) Hypogammaglobulinaemia, unspecified Current Visit: Yes Status: Acute Code(s): D80.1 - NONFAMILIAL HYPOGAMMAGLOBULINEMIA SNOMED Code(s): 420105224 (4) Pancytopenia Current Visit: Yes Status: Acute Code(s): D61.818 - OTHER PANCYTOPENIA SNOMED Code(s): 668145031 Plan: Supportive care Okay for full liquid diet and slowly advancing diet as tolerated Trial of dicyclomine for abdominal cramping Continue evaluation by hematology/oncology and surgical service for possible underlying malignancy Continue symptomatically treatment with antidiarrheals and/or cholestyramine We'll continue to monitor stool output Continue broad-spectrum antibiotic therapy No plans for colonoscopic evaluation at this time, however will continue to monitor her symptomatically and reevaluate if symptoms persist Thank you for allowing us to participate in the care of the patient
--- NOTE | 2019-09-02 06:54 | P.CONS ---
History of Present Illness - Reason for Consult Consult date: 09/01/19 Colitis Requesting physician: Puja Nye - Chief Complaint Diarrhea 3 weeks and abdominal pain - History of Present Illness Patient is a 68-year-old female with a past medical history significant for hypogammaglobulinemia for the patient is receiving out patient IV IgG on a weekly basis, also with a recent diagnosis of thrombocytopenia and leukopenia for which the workup has been in progress apparently the patient has canceled her appointment for the bone marrow biopsy that was suggested by her oncologist patient is presenting to the hospital with chief complaints of diarrhea that has been getting worse for the last 3 weeks patient describes about 5-6 loose stools per day with no blood or mucus in the stool patient did have crampy lower abdominal pain with intensity of 4-5 out of 10 and no radiation some nausea but no vomiting and denies high-grade fever, apparently the patient did have a stool study done in outpatient setting which has been neg ative with the symptoms the patient presented to the hospital on arrival to the ER patient has been afebrile and no fever has been recorded during this hospital admission patient noticed to have a leukopenia with white count of 1.[address] she did have a CT of abdominal pelvis which did show medically and retro-peritoneal lymphadenopathy with thickening of the colon concerning for colitis, patient has been evaluated by general surgery and GI services and patient is currently being treated with the antidiarrheal with concern for colitis and her leukopenia the patient had been started on Zosyn and Flagyl infectious disease was consulted last night for further management of antibiotic therapy, patient did mention improvement in her symptoms as far as diet is concerned were last 24 hour with resolution of the diarrhea and did have some bowel movement Review of Systems Positive point has been mentioned in the HPI rest of the systems are negative Past Medical History Past Medical History: GERD/Reflux, Hypertension Additional Past Medical History / Comment(s): Common variable immunodeficiency, 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 Severe recalcitrant dermatitis, Allergic rhinitis. History of Any Multi-Drug Resistant Organisms: MRSA Year Discovered:: 08/14/2009 MDRO Source:: Open wound. Past Surgical History: Hysterectomy Additional Past Surgical History / Comment(s): common variable immune deficicency. Additional Past Anesthesia/Blood Transfusion Reaction / Comm: Slow to wake up. Past Psychological History: Anxiety, Depression Smoking Status: Never smoker Past Alcohol Use History: None Reported Additional Past Alcohol Use History / Comment(s): Patient was a smoker for a few years and quit 5 years ago. She denies any alcohol use, marijuana or illicit drug use. She is and lives at home with her . She retired in 2017 from [employer]. Past Drug Use History: None Reported - Past Family History Father Additional Family Medical History / Comment(s): Patient's father at age 92 from CVA. He also had a degenerative muscle disorder. Mother Additional Family Medical History / Comment(s): Mother is alive at age 90 with no major medical problems. Brother(s) Additional Family Medical History / Comment(s): Patient is a total of 4 siblings with no major medical problems. Patient has one daughter with no major medical problems. Medications and Allergies Home Medications Medication Instructions Recorded Confirmed Type ALPRAZolam [Xanax] 1 mg PO HS 08/29/19 08/29/19 History Citalopram Hydrobromide [CeleXA] 40 mg PO HS 08/29/19 08/29/19 History Pregabalin [Lyrica] 100 mg PO DAILY 08/29/19 08/29/19 History hydrOXYzine HCL [Atarax] 75 mg PO TID PRN 08/29/19 08/29/19 History traMADol HCL 50 mg PO TID PRN 08/29/19 08/29/19 History Allergies Allergy/AdvReac Type Severity Reaction Status Date / Time No Known Allergies Allergy Verified 08/29/19 22:06 Physical Exam Vitals: Vital Signs Temp Pulse Resp BP Pulse Ox 09/01/19 05:55 97 09/01/19 05:00 98.8 F 68 18 124/69 91 L 08/31/19 21:00 98.6 F 67 14 160/73 99 Intake and Output 08/31/19 09/01/19 09/01/19 22:59 06:59 14:59 Intake Total 200 500 Balance 200 500 Intake: Intake, IV Titration 200 Amount Piperacillin-Tazobactam 3 100 .375 gm In Sodium Chloride 0.9% 100 ml @ 25 mls/hr IVPB Q8HR [facility] Rx# :[id number] metroNIDAZOLE-NS PMX 500 100 mg In Saline 1 100ml.bag @ 100 mls/hr IVPB Q8HR [facility] Rx#:[id number] Oral 200 300 Other: Voiding Method Toilet Toilet # Voids 2 2 GENERAL DESCRIPTION: An elderly female lying in bed, no distress. No tachypnea or accessory muscle of respiration use. HEENT: Shows Pallor , no scleral icterus. Oral mucous membrane is dry. No pharyngeal erythema or thrush NECK: Trachea central, no thyromegaly. LUNGS: Unlabored breathing. Clear to auscultation anteriorly. No wheeze or crackle. HEART: S1, S2, regular rate and rhythm. No loud murmur ABDOMEN: Soft, mild left-sided tenderness , guarding or rigidity, no organomegaly EXTREMITIES: No edema of feet. SKIN: No rash, no masses palpable. NEUROLOGICAL: The patient is awake, alert, oriented x3, mood and affect normal. Results CBC & Chem 7: 09/01/19 05:45 09/01/19 05:45 Labs: Abnormal Lab Results - Last 24 Hours (Table) 08/30/19 08/30/19 09/01/19 Range/Units 12:32 12:32 05:45 WBC (3.8-10.6) k/uL RBC (3.80-5.40) m/uL Hgb (11.4-16.0) gm/dL Hct (34.0-46.0) % Plt Count (150-450) k/uL Chloride 110 H (98-107) mmol/L Creatinine 1.57 H (0.52-1.04) mg/dL AST 42 H (14-36) U/L Alkaline Phosphatase 240 H (38-126) U/L Total Protein 5.5 L (6.3-8.2) g/dL Albumin 2.9 L (3.5-5.0) g/dL Methylmalonic Acid 0.54 H (<0.40) umol/L IgA <25.5 L (60.0-350.0) mg/dL IgM <16.9 L (40.0-280.0) mg/dL 09/01/19 Range/Units 05:45 WBC 1.1 L* (3.8-10.6) k/uL RBC 3.51 L (3.80-5.40) m/uL Hgb 9.5 L (11.4-16.0) gm/dL Hct 30.2 L (34.0-46.0) % Plt Count 38 L (150-450) k/uL Chloride (98-107) mmol/L Creatinine (0.52-1.04) mg/dL AST (14-36) U/L Alkaline Phosphatase (38-126) U/L Total Protein (6.3-8.2) g/dL Albumin (3.5-5.0) g/dL Methylmalonic Acid (<0.40) umol/L IgA (60.0-350.0) mg/dL IgM (40.0-280.0) mg/dL Assessment and Plan Assessment: 1-patient presented to hospital with weakness worsening diarrhea that has been going on for almost 3 weeks now in this patient who did have history of hypogammaglobulinemia though the IgG level checked this admission has been normal she did have low IgA level with a CT suspicious for colitis on the basis of thickened colon wall, apparently the patient did have a stool studies done in outpatient setting that has been negative the patient reported improvement in her symptom as ordered as abdominal pain and diarrhea is concerned were lasted 4 hours after the patient started on antibiotic underlying component of infectious colitis not entirely excluded (1) Colitis Current Visit: Yes Status: Acute Code(s): K52.9 - NONINFECTIVE GASTROENTERITIS AND COLITIS, UNSPECIFIED SNOMED Code(s): 90540437 (2) Diarrhea Current Visit: Yes Status: Acute Code(s): R19.7 - DIARRHEA, UNSPECIFIED SNOMED Code(s): 41806312 Plan: 1- we will repeat her stool studies 2-continue with the Zosyn in view of clinical improvement transition to oral antibiotic on discharge 3-discontinue the loperamide and use Questran for symptomatic relief of diarrhea We will follow on clinical condition and cultures to further adjust medication if needed Thank you for this consultation will follow this patient with you Time with Patient: Greater than 30
[2019-09-02] MEDS: PANTOPRAZOLE 40 MG TABLET PO SCH (09:03)
[2019-09-02] MEDS: PREGABALIN 100 MG CAP PO SCH (09:04)
[2019-09-02] MEDS: metroNIDAZOLE-NS PMX 500 MG in SALINE 1 100ML.BAG IVPB SCH ×2 (09:04→15:21)
[2019-09-02] MEDS: ACYCLOVIR 800 MG TAB PO SCH ×3 (09:04→21:57)
[2019-09-02] MEDS: ALLOPURINOL 300 MG TAB PO SCH (09:05)
[2019-09-02] MEDS: CHOLESTYRAMINE (WITH SUGAR) 4 GM PACKET PO SCH ×4 (09:05→21:57)
[2019-09-02 09:20] LABS: Basophils % (A) 1 %; Eosinophils # (A) 0.1 k/uL (0-0.7); Eosinophils % (A) 6 %; HCT 31.8 % (34.0-46.0); HGB 10.3 gm/dL (11.4-16.0); Hypochromasia Slight; Lymphocytes # (A) 0.3 k/uL (1.0-4.8); Lymphocytes % (A) 29 %; MCHC 32.4 g/dL (31.0-37.0); MCV 86.2 fL (80.0-100.0); Mean Platelet Volume 9.2; Monocytes # (A) 0.1 k/uL (0-1.0); Monocytes % (A) 12 %; Neutrophils # (A) 0.5 k/uL (1.3-7.7); Neutrophils % (A) 47 %; RBC 3.69 m/uL (3.80-5.40); RDW 14.6 % (11.5-15.5)
[2019-09-02 09:36] LABS: WBC 1.1 k/uL (3.8-10.6)
[2019-09-02 09:37] LABS: Platelet Count 38 k/uL (150-450)
[2019-09-02 12:12] LABS: Albumin 3.3 g/dL (3.5-5.0); Calcium 8.7 mg/dL (8.4-10.2); Magnesium 1.6 mg/dL (1.6-2.3); Potassium 4.1 mmol/L (3.5-5.1); Total Bilirubin 0.7 mg/dL (0.2-1.3); Total Protein 5.8 g/dL (6.3-8.2); Uric Acid 6.8 mg/dL (3.7-7.4)
--- NOTE | 2019-09-02 12:55 | P.PN ---
Subjective Progress Note Date: 09/02/19 Principal diagnosis: Pancytopenia, Persistent diarrhea with neutropenia, Adenopathy persistent Spoke to patient's daughter Katy at the request of the patient. Katy is RN at [facility] [employer] on the Neuro/Onc floor and is concerned with her mother being so far away. Updated on current situation and patient is comfortable and no current need for higher level of care over weekend as long as things remain same. Sister at bedside. She reports two foul smelling watery stools this am. She also just ate two crackers and her sister stated she complained of "bubbling and urgency as soon as she ate it. She does not want to be transferred. Discussed output with skilled nursing facilities professional who confirmed she collected two samples of watery stool. There has been miscommunication on symptoms and patient is not the best historian. She remains severely neutropenic. She also has oral candiasis in wh ich nystatin will be initiated. Objective - Vital Signs Vital signs: Vital Signs Temp 98.1 F 09/02/19 04:28 Pulse 65 09/02/19 04:28 Resp 16 09/02/19 04:28 BP 138/68 09/02/19 04:28 Pulse Ox 96 09/02/19 06:19 Intake & Output 09/01/19 09/02/19 09/02/19 18:59 06:59 18:59 Intake Total 200 1390 Balance 200 1390 Intake: Intake, IV Titration 200 800 Amount Piperacillin-Tazobactam 3 100 100 .375 gm In Sodium Chloride 0.9% 100 ml @ 25 mls/hr IVPB Q8HR [facility] Rx# :[id number] Sodium Chloride 0.9% 1, 600 000 ml @ 50 mls/hr IV . Q20H [facility] Rx#:[id number] metroNIDAZOLE-NS PMX 500 100 100 mg In Saline 1 100ml.bag @ 100 mls/hr IVPB Q8HR [facility] Rx#:[id number] Oral 590 Other: Voiding Method Toilet Toilet Toilet # Voids 2 - Exam - Constitutional General appearance: cooperative, no acute distress - EENT Herpetic lesions on lip and open sores in nostrils Eyes: EOMI, poor dentition ENT: NA/AT, normal oropharynx -Lymphadenopathy: - on Yesterdays exam palpable in the left axilla, today harder to locate and p alpate. Question inflammation versus positioning. - Respiratory Respiratory: bilateral: CTA, diminished (no increased effort) - Cardiovascular Rhythm: regular Heart sounds: normal: S1, S2 leg Peripheral Edema: bilateral: Other (Chronic bilateral edema) - Gastrointestinal Firm, bloated and distended General gastrointestinal: distended - Integumentary Integumentary: pale - Neurologic non-focal - Musculoskeletal Musculoskeletal: generalized weakness, strength equal bilaterally - Psychiatric Psychiatric: A&O x's 3, appropriate affect, intact judgment & insight - Labs CBC & Chem 7: 09/02/19 08:56 09/02/19 08:56 Labs: Abnormal Lab Results - Last 24 Hours (Table) 08/30/19 09/01/19 09/02/19 Range/Units 12:32 12:08 08:56 WBC 1.1 L* (3.8-10.6) k/uL RBC 3.69 L (3.80-5.40) m/uL Hgb 10.3 L (11.4-16.0) gm/dL Hct 31.8 L (34.0-46.0) % Plt Count 38 L (150-450) k/uL Neutrophils # 0.5 L (1.3-7.7) k/uL Lymphocytes # 0.3 L (1.0-4.8) k/uL Uric Acid 7.8 H (3.7-7.4) mg/dL Albumin (PEP) 3.07 L (3.80-4.90) g/dL [id number] 0.43 H (0.10-0.40) g/dL Beta Globulins 0.52 L (0.60-1.30) g/dL Assessment and Plan (1) Pulmonary nodules Current Visit: Yes Status: Acute Code(s): R91.8 - OTHER NONSPECIFIC ABNORMAL FINDING OF LUNG FIELD SNOMED Code(s): 756979516 (2) Pancytopenia Current Visit: Yes Status: Acute Code(s): D61.818 - OTHER PANCYTOPENIA SNOMED Code(s): 837666378 (3) Hypogammaglobulinaemia, unspecified Current Visit: Yes Status: Acute Code(s): D80.1 - NONFAMILIAL HYPOGAMMAGLOBULINEMIA SNOMED Code(s): 943487342 (4) Diarrhea Current Visit: Yes Status: Acute Code(s): R19.7 - DIARRHEA, UNSPECIFIED SNOMED Code(s): 10605884 (5) Splenomegaly Current Visit: Yes Status: Acute Code(s): R16.1 - SPLENOMEGALY, NOT ELSEWHERE CLASSIFIED SNOMED Code(s): 72553660 Plan: Assessment and Recommendation Pancytopenia: - Normocytic anemia: Iron deficiency - Unknown why Iron Deficient. No plan for EGD or Colonoscopy - THrombocytopenia: Less than 50K no NSAIDS, or Aspirin, or VTE prophylaxis with less than 50K - Lymphocytopenia and Neutropenia: Will need to confirm diagnosis prior to initiation growth factor in case picture is of acute leukemia (less likely) - FLow cytometry on Lymph node biopsy and on peripheral blood - Pancytopenia work-up reviewed. No apparent Etiology of other causes found - Bone Marrow Biopsy with Irradiated Platelet transfusion planned today - Monitor with continued antibiotics and await recovery or bone m - arrow results Diffuse Adenopathy: - This has been present on prior imaging from 2013, although has increased in size and now within retroperitoneum - With the picture of hypogammaglobulemia, cytopenias, and adenopathy must consider malignancy, more specifically a lymphoma/leukemia (chronic) etiology - Uric acid and LDH - Uric Acid increased 8 - General surgery evaluated for excisional lymph node biopsy although U/S shows LN in axilla is 1.2cm very small - Unable to obtain clear access for LN biopsy Increased Uric Acid: Improving - Allopurinol initiated, Continue - Recheck Uric acid and renal function today Persistent Diarrhea -progressing - Stool studies negative, CONCERN for neutropenia colitis - Hold at clear liquids for watery stool todaySuzanna - Recommend antibiotic - will continue Flagyl/Zosyn - Recheck stool studies, if increased cramping or diarrhea returns please make NPO Abdominal Pain and Cramping -Resolved - Abdomen increased firm and distended today Bilateral Pulmonary Nodules - Have been present since 2014 never have they been biopsied - They appear to have had mild growth, these nodules maybe consistent with her known common variable immunodefiency Hypogammaglobulemia - Follows [facility] yard manager Dr. Cardona - Common Variable immune deficiency - Weekly IVIG injections - IgG greater than 900, no indication for IVIG Herpes Zoster (HSV1/HSV2) - Continue on Acyclovir and continue on prophylaxis while neutropenic. Acute Renal Insufficeiny - Monitor Increased uric acid - Renal Utrasound for obstructive neuropathy - With diffuse abdominal adenopathy - Will ask Nephrology to evaluate. - It does appear she may have some baseline chronic renal disease, although no definitive diagnosis - Continue IV hydration Plan: - Lymph Node unable to find good access per IR although she is status post Bone Marrow Biopsy today with Irradiated Platelet transfusion with procedure - to be done in IR - Discussed with primary team - Depending on results of bone marrow will determine next steps and if higher level of care would be indictated - Continue on close monitoring of symptoms after PO intake - Nephrology and Renal Ultrasound, Check CK level - Limit to clear liquids with hyperactive bowel sounds and urgency post attempting cracker. - Daily CBC with diff and CMP, LDH, Phos, Uric Acid. - Discussed plan with patient, sister, daughter all in agreement - Discussed with GI and if no improvements over weekend will plan for flex sig to asses further.
--- NOTE | 2019-09-02 13:01 | P.PN ---
<Brittany Cardona - Last Filed: 09/02/19 12:56> Subjective Progress Note Date: 09/02/19 CHIEF COMPLAINT: Lymph node biopsy HISTORY OF PRESENT ILLNESS: Patient examined this morning at the bedside. Patient underwent an axillary ultrasound yesterday. Right axilla reveals one lymph node visualized measuring 0.7 cm. Left axilla ultrasound revealed 2 lymph nodes visualized. The first measuring 1.2 cm and the second measuring 0.9 cm and thickened. WBC 1.1 Hemoglobin 10.3. Platelet count 38. PHYSICAL EXAM: VITAL SIGNS: Reviewed. GENERAL: Well-developed in no acute distress. HEENT: No sclera icterus. Extraocular movements grossly intact. Moist buccal mucosa. Head is atraumatic, normocephalic. ABDOMEN: Soft. Nondistended. Nontender. NEUROLOGIC: Alert and oriented. Cranial nerves II through XII grossly intact. ASSESSMENT: 1. Adenopathy PLAN: Patient is scheduled for bone marrow biopsy and lymph node biopsy today per IR. Await results. Nurse practitioner note has been reviewed by physician. Signing provider agrees with the documented findings, assessment, and plan of care. Objective - Vital Signs Vital signs: Vital Signs Temp 97.7 F 09/02/19 11:50 Pulse 80 09/02/19 11:50 Resp 17 09/02/19 11:50 BP 168/71 09/02/19 11:50 Pulse Ox 97 09/02/19 11:50 Intake & Output 09/01/19 09/02/19 09/02/19 18:59 06:59 18:59 Intake Total 200 1390 Balance 200 1390 Weight 72.03 kg Intake: Intake, IV Titration 200 800 Amount Piperacillin-Tazobactam 3 100 100 .375 gm In Sodium Chloride 0.9% 100 ml @ 25 mls/hr IVPB Q8HR [facility] Rx# :[id number] Sodium Chloride 0.9% 1, 600 000 ml @ 50 mls/hr IV . Q20H [facility] Rx#:[id number] metroNIDAZOLE-NS PMX 500 100 100 mg In Saline 1 100ml.bag @ 100 mls/hr IVPB Q8HR [facility] Rx#:[id number] Oral 590 Other: Voiding Method Toilet Toilet Toilet # Voids 2 - Labs CBC & Chem 7: 09/02/19 08:56 09/02/19 08:56 Labs: Abnormal Lab Results - Last 24 Hours (Table) 08/30/19 09/02/19 09/02/19 Range/Units 12:32 08:56 08:56 WBC 1.1 L* (3.8-10.6) k/uL RBC 3.69 L (3.80-5.40) m/uL Hgb 10.3 L (11.4-16.0) gm/dL Hct 31.8 L (34.0-46.0) % Plt Count 38 L (150-450) k/uL Neutrophils # 0.5 L (1.3-7.7) k/uL Lymphocytes # 0.3 L (1.0-4.8) k/uL Chloride 110 H (98-107) mmol/L Creatinine 1.78 H (0.52-1.04) mg/dL AST 53 H (14-36) U/L ALT 40 H (4-34) U/L Alkaline Phosphatase 277 H (38-126) U/L Total Protein 5.8 L (6.3-8.2) g/dL Albumin 3.3 L (3.5-5.0) g/dL Albumin (PEP) 3.07 L (3.80-4.90) g/dL Cbobt-9-Ullrsbebl 0.43 H (0.10-0.40) g/dL Beta Globulins 0.52 L (0.60-1.30) g/dL <Boni Kurtz - Last Filed: 09/02/19 15:45> Subjective As above. No new complaints. Underwent bone marrow biopsy today. No palpable lymph nodes on exam. Ultrasound noted. We'll sign off. Call if needed. Objective - Vital Signs Vital signs: Vital Signs Temp 98 F 09/02/19 13:10 Pulse 71 09/02/19 15:28 Resp 18 09/02/19 13:50 BP 134/74 09/02/19 15:28 Pulse Ox 95 09/02/19 15:28 Intake & Output 09/01/19 09/02/19 09/02/19 18:59 06:59 18:59 Intake Total 200 1390 223 Balance 200 1390 223 Weight 72.03 kg Intake: Intake, IV Titration 200 800 Amount Piperacillin-Tazobactam 3 100 100 .375 gm In Sodium Chloride 0.9% 100 ml @ 25 mls/hr IVPB Q8HR [facility] Rx# :[id number] Sodium Chloride 0.9% 1, 600 000 ml @ 50 mls/hr IV . Q20H [facility] Rx#:[id number] metroNIDAZOLE-NS PMX 500 100 100 mg In Saline 1 100ml.bag @ 100 mls/hr IVPB Q8HR [facility] Rx#:[id number] Oral 590 Blood Product 223 Platelet Irr Pheresis 2 223 [facility] Unit [id number] Other: Voiding Method Toilet Toilet Toilet # Voids 2 4 - Labs CBC & Chem 7: 09/02/19 08:56 09/02/19 08:56 Labs: Abnormal Lab Results - Last 24 Hours (Table) 09/02/19 09/02/19 Range/Units 08:56 08:56 WBC 1.1 L* (3.8-10.6) k/uL RBC 3.69 L (3.80-5.40) m/uL Hgb 10.3 L (11.4-16.0) gm/dL Hct 31.8 L (34.0-46.0) % Plt Count 38 L (150-450) k/uL Neutrophils # 0.5 L (1.3-7.7) k/uL Lymphocytes # 0.3 L (1.0-4.8) k/uL Chloride 110 H (98-107) mmol/L Creatinine 1.78 H (0.52-1.04) mg/dL AST 53 H (14-36) U/L ALT 40 H (4-34) U/L Alkaline Phosphatase 277 H (38-126) U/L Total Protein 5.8 L (6.3-8.2) g/dL Albumin 3.3 L (3.5-5.0) g/dL
[2019-09-02] MEDS ORDERED: MIDAZOLAM 2 MG/2 ML VIAL ONE (13:22)
[2019-09-02] MEDS ORDERED: PROPOFOL 10 MG/ML 20 ML VIAL IV ONE (13:22)
[2019-09-02] MEDS ORDERED: fentaNYL (PF) 50 MCG/ML 2 ML AMP ONE (13:22)
[2019-09-02] MEDS ORDERED: KETAMINE 10 MG/ML 20 ML VIAL ONE (13:22)
--- NOTE | 2019-09-02 13:35 | P.PN ---
Subjective Progress Note Date: 09/02/19 This is a 68-year-old female patient of Dr. Figueroa with past medical history of common variable immune deficiency follows with food and beverage director Dr. Cardona in [facility], on Hizentra weekly. Patient gives history of having diarrhea for several weeks up to one month. She also has abdominal pain /cramping that she describes as a discomfort in the lower abdominal quadrants. She thinks her last colonoscopy was 3 years ago but most likely longer is there is no report on record here. She has had no recent hospitalizations. She states she has lost 10 pounds. No nausea or vomiting, no fever or chills. No cough. No chest pain. She does have lower extremity edema which is been chronic. She denies any dysuria. She denies any previous history of cancer. She has had no follow-up with Dr. Wu. He did perform a CAT scan of the chest to rule out lung cancer in 2013. Last Thursday, patient contacted her PCP office and stool specimen was provided for testing: Cryptosporidium negative, Giardia negative, C. difficile toxin negative. She received a call from the office yesterday and she was told that her culture was negative. Patient states that she was still having diarrhea and abdominal discomfort and was told to take Imodium and an appointment was set up for October 10. Patient was not happy with this and sought treatment by coming into the hospital. Patient presented to [facility] emergency center for evaluation. She was found to have a white count of 1.6, hemoglobin 11.9, platelet count 63. BUN 18 and creatinine 1.51. Electrolytes normal, blood conteh gar 135. AST 40, ALT 31, alkaline phosphatase 294, lipase 593. Urinalysis was negative. CAT scan of the abdomen pelvis without contrast revealed retroperitoneal adenopathy, splenomegaly, correlate for lymphoma, leukemia, metastatic disease. Difficult to exclude colitis. Nondescript inflammatory changes about the gallbladder. Subsequently, a CAT scan of the chest was ordered without contrast which revealed multiple pulmonary nodules, mediastinal and hilar adenopathy. Aortic aneurysm, pulmonary aortic hypertension may be present. Possible portal hypertension. Patient has been admitted to the [facility] floor, oncology consult and abdominal ultrasound ordered to evaluate gallbladder and liver. 08/30: Patient has been seen by oncology and consults were added for Dr. Rivero for lymph node biopsy from the axilla. This has not yet been scheduled. Patient is also had a consult added for Dr. Baird for diarrhea. Patient states that Imodium significantly helped diarrhea yesterday. She is feeling better in general. Ultrasound of the gallbladder region revealed minimal ascites. Hydropic gallbladder. Patient has been afebrile, heart rate 66, blood pressure 123/67, pulse ox 97% on room air. Repeat blood work reveals WBC 1.2, hemoglobin 10.2, platelet 41. Subcu heparin will be discontinued. Other lab work reveals uric acid of 8, iron 26, TIBC 341, iron saturation 7.62, ferritin 50.7, LDH 3.88, total protein PEEP 5.6, vitamin B12 847, folate 18.6. Repeat lipase is 236. Rheumatoid factor is 7, TANIA screen negative. Free Of 0.92 and free lambda 0.65. Coronavirus testing negative. Anticipate possible discharge tomorrow and patient will follow-up for pathology report. 08/31: Patient has been seen by Dr. Rivero and ultrasound of the axilla bilaterally up and done. The right axilla had no evident adenopathy. Left axilla has [address] Rivero will not be doing biopsy. Oncology will make arrangements for interventional radiology to perform biopsy from abdominal/pelvic lymph node and schedule patient for bone marrow biopsy. There was a consult added for infectious disease regarding neutropenic colitis. Flagyl and Levaquin were started yesterday. GI is not planning for any intervention at this point. Patient's diarrhea has resolved after her first dose of Imodium. She states she still has slight discomfort but no cramping and no diarrhea. She denies any nausea vomiting. She is currently on a full liquid diet to be advanced to regular. Repeat lab work reveals WBC 1.1, hemoglobin 9.5, platelet count 38. Sodium 139, potassium 4.2, chloride 110, CO2 25, BUN 15 and creatinine 1.57, INR 0.9. AST is 42, ALT 31, appointment possibly 240, LDH 428 lactic acid 0.8, uric acid 7.8. 09/01: The patient has one formed stool yesterday. Dr. Stout ordered stool culture and C. difficile toxin. He recommended continuing Zosyn and oral antibiotic at discharge. The patient states that she is feeling well today. She is scheduled for bone marrow biopsy and lymph node biopsy by interventional radiology. She is anxious to be discharged home. Oncology has been in contact with patient's daughter and there is talk about transferring to [facility]. Oncology will discuss this with the patient. Repeat lab work reveals WBC 1.1, hemoglobin 10.3, platelet count 38. Creatinine is 1.78. Consult added with nephrology Review Of Systems: Constitutional: No fever, no chills, no night sweats. Reports weight loss. No weakness, fatigue or lethargy. No daytime sleepiness. EENT: No headache. No blurred vision or double vision, no loss of vision. No loss of Hearing, no ringing in the ears, no dizziness. No nasal drainage or congestion. No epistaxis. No sore throat. Lungs: No shortness of breath, cough, no sputum production. No wheezing. Cardiovascular: No chest pain, no lower extremity edema. No palpitations. No paroxysmal nocturnal dyspnea. No orthopnea. No lightheadedness or dizziness. No syncopal episodes. Abdominal: Reports abdominal discomfort. No nausea, vomiting. Denies diarrhea, resolved. No constipation. No bloody or tarry stools. No loss of appetite. Genitourinary: No dysuria, increased frequency, urgency. No urinary retention. Musculoskeletal: No myalgias. No muscle weakness, no gait dysfunction, no frequent falls. No back pain. No neck pain. Integumentary: No wounds, no lesions. No rash or pruritus. No unusual bruising. No change in hair or nails. Neurologic: No aphasia. No facial droop. No change in mentation. No head injury. No headache. No paralysis. No paresthesia. Psychiatric: No depression. No anxiety. No mood swings. Endocrine: No abnormal blood sugars. Reports weight loss. No excessive sweating or thirst. No cold intolerance. Physical examination Gen: This is a 68-year-old female. Patient is resting in bed and appears to be comfortable and in no acute distress. HEENT: Head is atraumatic, normocephalic. Pupils equal, round. Sclerae is anicteric. Oral mucous membranes are slightly dry. NECK: Supple. No JVD. No lymphadenopathy. No thyromegaly. No lymphadenopathy noted in the neck, groin areas. Small lymph nodes palpated in the axilla. LUNGS: Clear to auscultation. No wheezes or rhonchi. No intercostal retractions. HEART: Regular rate and rhythm. No murmur. ABDOMEN: Soft. Bowel sounds are present. No masses. Minimal lower abdominal tenderness. Palpated and large spleen and borderline enlarged liver. EXTREMITIES: Trace bilateral pedal edema. No calf tenderness. Dorsalis pedis +2 bilaterally. NEUROLOGICAL: Patient is awake, alert and oriented x3. Cranial nerves 2 through 12 are grossly intact. Assessment and plan 1. Abdominal pain and diarrhea of unclear etiology, possible colitis. Continue Imodium as needed for diarrhea. Continue IV fluids. GI consult appreciated. No plan for intervention. Diet to be advanced. Consult with Dr. Stout was a dded. Continue Flagyl and Levaquin. Repeat stool studies in progress. 2. Acute kidney injury. Avoid nephrotoxic agents. 3. Retroperitoneal adenopathy, pulmonary nodules and splenomegaly, rule out non-Hodgkin's lymphoma, MALT. Ultrasound of the gallbladder/liver as above. Consult with oncology appreciated. Lymph node biopsy and bone marrow biopsy to be obtained. 4. Bicytopenia with leukopenia and thrombocytopenia. Consult with oncology. Repeat lab work in the morning. 5. History of common variable immune deficiency under the care of Dr. Cardona [facility]. Patient is on Hizentra weekly. 6. Generalized anxiety disorder. Continue Xanax 0.5 mg at bedtime, Celexa 40 mg at bedtime. 7. Chronic kidney disease stage III. Baseline creatinine 1.3. Continue IV fluids at 50 mL per hour. 8. DVT prophylaxis. Heparin subcu every 12 hours. 9. GI prophylaxis. Protonix daily. 10. COVID-19 infection not present. Discharge plan: Home Impression and plan of care have been directed as dictated by the signing physician. Lorna Machado nurse practitioner acting as scribe for signing physician. Objective - Vital Signs Vital signs: Vital Signs Temp 97.7 F 09/02/19 11:50 Pulse 80 09/02/19 11:50 Resp 17 09/02/19 11:50 BP 168/71 09/02/19 11:50 Pulse Ox 97 09/02/19 11:50 Intake & Output 09/01/19 09/02/19 09/02/19 18:59 06:59 18:59 Intake Total 200 1390 Balance 200 1390 Intake: Intake, IV Titration 200 800 Amount Piperacillin-Tazobactam 3 100 100 .375 gm In Sodium Chloride 0.9% 100 ml @ 25 mls/hr IVPB Q8HR [facility] Rx# :[id number] Sodium Chloride 0.9% 1, 600 000 ml @ 50 mls/hr IV . Q20H [facility] Rx#:[id number] metroNIDAZOLE-NS PMX 500 100 100 mg In Saline 1 100ml.bag @ 100 mls/hr IVPB Q8HR [facility] Rx#:[id number] Oral 590 Other: Voiding Method Toilet Toilet Toilet # Voids 2 - Labs CBC & Chem 7: 09/02/19 08:56 09/02/19 08:56 Labs: Abnormal Lab Results - Last 24 Hours (Table) 08/30/19 09/01/19 09/02/19 Range/Units 12:32 12:08 08:56 WBC 1.1 L* (3.8-10.6) k/uL RBC 3.69 L (3.80-5.40) m/uL Hgb 10.3 L (11.4-16.0) gm/dL Hct 31.8 L (34.0-46.0) % Plt Count 38 L (150-450) k/uL Neutrophils # 0.5 L (1.3-7.7) k/uL Lymphocytes # 0.3 L (1.0-4.8) k/uL Chloride (98-107) mmol/L Creatinine (0.52-1.04) mg/dL Uric Acid 7.8 H (3.7-7.4) mg/dL AST (14-36) U/L ALT (4-34) U/L Alkaline Phosphatase (38-126) U/L Total Protein (6.3-8.2) g/dL Albumin (3.5-5.0) g/dL Albumin (PEP) 3.07 L (3.80-4.90) g/dL Rxnuh-4-Ghnrfyjsi 0.43 H (0.10-0.40) g/dL Beta Globulins 0.52 L (0.60-1.30) g/dL 09/02/19 Range/Units 08:56 WBC (3.8-10.6) k/uL RBC (3.80-5.40) m/uL Hgb (11.4-16.0) gm/dL Hct (34.0-46.0) % Plt Count (150-450) k/uL Neutrophils # (1.3-7.7) k/uL Lymphocytes # (1.0-4.8) k/uL Chloride 110 H (98-107) mmol/L Creatinine 1.78 H (0.52-1.04) mg/dL Uric Acid (3.7-7.4) mg/dL AST 53 H (14-36) U/L ALT 40 H (4-34) U/L Alkaline Phosphatase 277 H (38-126) U/L Total Protein 5.8 L (6.3-8.2) g/dL Albumin 3.3 L (3.5-5.0) g/dL Albumin (PEP) (3.80-4.90) g/dL Shdxy-5-Shykauozt (0.10-0.40) g/dL Beta Globulins (0.60-1.30) g/dL
--- NOTE | 2019-09-02 14:41 | PN ---
PROGRESS NOTE DATE OF SERVICE: 09/02/2019 REASON FOR FOLLOW UP: Diarrhea and a question of colitis. INTERVAL HISTORY: The patient is currently afebrile. The patient is feeling better. Breathing comfortably. Patient denies having any abdominal pain. Did mention her diarrhea has resolved and did have a normal bowel movement. The patient. PHYSICAL EXAMINATION: Blood pressure is 155/71 with a pulse of 79, temperature 98, she is 98% on room air. General description is an elderly female, up in the chair in no distress. RESPIRATORY SYSTEM: Unlabored breathing, clear to auscultation anteriorly. HEART: S1, S2. Regular rate and rhythm. ABDOMEN: Soft, no tenderness. LABS: Hemoglobin 10.8, white count 1.1, creatinine 1.78. Stool studies not obtained. DIAGNOSTIC IMPRESSION AND PLAN: Patient admitted to the hospital with diarrhea of 3 weeks with C. difficile suspicious for colitis. The patient did not have a stool study done this admission: however, has been done in outpatient setting has been negative. Will put him on Zosyn, consider a course of oral Cipro and Flagyl on discharge. Continue supportive care. MMODL / IJN: [id number] /
[2019-09-02] MEDS: SODIUM CHLORIDE 0.9% 1,000 ML IV SCH ×2 (15:14→15:21)
--- NOTE | 2019-09-02 19:35 | P.PN ---
Subjective Progress Note Date: 09/02/19 Principal diagnosis: Abdominal pain, diarrhea Patient is seen lying in bed today. She is status post bone marrow biopsy. No abdominal complaints. 2 formed bowel movements reported. Asking for diet. Objective - Vital Signs Vital signs: Vital Signs Temp 98 F 09/02/19 13:10 Pulse 77 09/02/19 13:50 Resp 18 09/02/19 13:50 BP 125/76 09/02/19 13:50 Pulse Ox 98 09/02/19 13:50 Intake & Output 09/01/19 09/02/19 09/02/19 18:59 06:59 18:59 Intake Total 200 1390 0 Balance 200 1390 0 Weight 72.03 kg Intake: Intake, IV Titration 200 800 Amount Piperacillin-Tazobactam 3 100 100 .375 gm In Sodium Chloride 0.9% 100 ml @ 25 mls/hr IVPB Q8HR [facility] Rx# :[id number] Sodium Chloride 0.9% 1, 600 000 ml @ 50 mls/hr IV . Q20H [facility] Rx#:[id number] metroNIDAZOLE-NS PMX 500 100 100 mg In Saline 1 100ml.bag @ 100 mls/hr IVPB Q8HR [facility] Rx#:[id number] Oral 590 Blood Product 0 Platelet Irr Pheresis 2 0 Acda Unit [id number] Other: Voiding Method Toilet Toilet Toilet # Voids 2 - Exam On physical examination, patient appears comfortable in no apparent distress. HEAD: Normocephalic, atraumatic. EYES: No scleral icterus. No conjunctival injection. MOUTH: No lesions, tongue midline. NECK: Trachea midline, no gross abnormalities. ABDOMEN: Soft, obese. Bowel sounds are positive. No organomegaly. No guarding or rigidity. EXTREMITIES: No pedal edema. SKIN: No rashes, no jaundice. NEUROLOGIC: Alert and oriented x3. No focal deficits. - Labs CBC & Chem 7: 09/02/19 08:56 09/02/19 08:56 Labs: Abnormal Lab Results - Last 24 Hours (Table) 09/02/19 09/02/19 Range/Units 08:56 08:56 WBC 1.1 L* (3.8-10.6) k/uL RBC 3.69 L (3.80-5.40) m/uL Hgb 10.3 L (11.4-16.0) gm/dL Hct 31.8 L (34.0-46.0) % Plt Count 38 L (150-450) k/uL Neutrophils # 0.5 L (1.3-7.7) k/uL Lymphocytes # 0.3 L (1.0-4.8) k/uL Chloride 110 H (98-107) mmol/L Creatinine 1.78 H (0.52-1.04) mg/dL AST 53 H (14-36) U/L ALT 40 H (4-34) U/L Alkaline Phosphatase 277 H (38-126) U/L Total Protein 5.8 L (6.3-8.2) g/dL Albumin 3.3 L (3.5-5.0) g/dL Assessment and Plan (1) Diarrhea Narrative/Plan: 68-year-old female who presented to the hospital with diarrhea occurring over the past month reported as 5-6 loose bowel movements daily without signs or symptoms of GI bleeding with associated lower abdominal cramping. No prior history of diarrhea with the patient reporting chronic constipation at baseline. The patient had stool studies in the outpatient setting which were negative. Computed tomography scan of the abdomen did show splenomegaly and retroperitoneal adenopathy with suspicion for possible lymphoma with colitis not excluded. Unclear etiology of symptoms, however the patient does report celiac testing in the past which was negative, may be related to image pancolitis or other etiology. She has had improvement with antidiarrheals. Current Visit: Yes Status: Acute Code(s): R19.7 - DIARRHEA, UNSPECIFIED SNOMED Code(s): 37221989 (2) Abdominal pain Current Visit: Yes Status: Acute Code(s): R10.9 - UNSPECIFIED ABDOMINAL PAIN SNOMED Code(s): 45507239 (3) Hypogammaglobulinaemia, unspecified Current Visit: Yes Status: Acute Code(s): D80.1 - NONFAMILIAL HYPOGAMMAGLOBULINEMIA SNOMED Code(s): 264604469 (4) Pancytopenia Current Visit: Yes Status: Acute Code(s): D61.818 - OTHER PANCYTOPENIA SNOMED Code(s): 160315951 Plan: Supportive care Okay for full liquid diet and slowly advancing diet as tolerated Trial of dicyclomine for abdominal cramping Continue evaluation by hematology/oncology and surgical service for possible underlying malignancy Continue symptomatically treatment with antidiarrheals and/or cholestyramine as needed We'll continue to monitor stool output Continue broad-spectrum antibiotic therapy No plans for colonoscopic evaluation at this time, however will continue to monitor her symptomatically and reevaluate if symptoms persist Thank you for allowing us to participate in the care of the patient
[2019-09-02] MEDS: ALPRAZolam 1 MG TAB PO SCH (21:57)
[2019-09-02] MEDS: CITALOPRAM HYDROBROMIDE 20 MG TAB PO SCH (21:57)
[2019-09-03] MEDS: PIPERACILLIN-TAZOBACTAM 3.375 GM in SODIUM CHLORIDE 0.9% 100 ML IVPB SCH ×3 (00:11→16:43)
[2019-09-03] MEDS: metroNIDAZOLE-NS PMX 500 MG in SALINE 1 100ML.BAG IVPB SCH ×3 (00:12→15:32)
[2019-09-03] MEDS: SODIUM CHLORIDE 0.9% 1,000 ML IV SCH ×2 (06:06→15:36)
[2019-09-03] MEDS: PANTOPRAZOLE 40 MG TABLET PO SCH (08:22)
[2019-09-03] MEDS: ALLOPURINOL 300 MG TAB PO SCH (08:22)
[2019-09-03] MEDS: ACYCLOVIR 800 MG TAB PO SCH ×3 (08:22→21:39)
[2019-09-03] MEDS: CHOLESTYRAMINE (WITH SUGAR) 4 GM PACKET PO SCH ×4 (08:22→21:33)
[2019-09-03] MEDS: PREGABALIN 100 MG CAP PO SCH (08:22)
[2019-09-03] MEDS: LOPERAMIDE 2 MG CAP PO PRN ×2 (10:27→21:39)
--- NOTE | 2019-09-03 12:02 | P.PN ---
Subjective Progress Note Date: 09/03/19 his is a 68-year-old female patient of Dr. Figueroa with past medical history of common variable immune deficiency follows with signalling and communications engineer Dr. Cardona in [facility], on Hizentra weekly. Patient gives history of having diarrhea for several weeks up to one month. She also has abdominal pain/c ramping that she describes as a discomfort in the lower abdominal quadrants. She thinks her last colonoscopy was 3 years ago but most likely longer is there is no report on record here. She has had no recent hospitalizations. She states she has lost 10 pounds. No nausea or vomiting, no fever or chills. No cough. No chest pain. She does have lower extremity edema which is been chronic. She denies any dysuria. She denies any previous history of cancer. She has had no follow-up with Dr. Wu. He did perform a CAT scan of the chest to rule out lung cancer in 2013. Last Thursday, patient contacted her PCP office and stool specimen was provided for testing: Cryptosporidium negative, Giardia negative, C. difficile toxin negative. She received a call from the office yesterday and she was told that her culture was negative. Patient states that she was still having diarrhea and abdominal discomfort and was told to take Imodium and an appointment was set up for October 10. Patient was not happy with this and sought treatment by coming into the hospital. Patient presented to [facility] emergency center for evaluation. She was found to have a white count of 1.6, hemoglobin 11.9, platelet count 63. BUN 18 and creatinine 1.51. Electrolytes normal, blood suga r 135. AST 40, ALT 31, alkaline phosphatase 294, lipase 593. Urinalysis was negative. CAT scan of the abdomen pelvis without contrast revealed retroperitoneal adenopathy, splenomegaly, correlate for lymphoma, leukemia, metastatic disease. Difficult to exclude colitis. Nondescript inflammatory c hanges about the gallbladder. Subsequently, a CAT scan of the chest was ordered without contrast which revealed multiple pulmonary nodules, mediastinal and hilar adenopathy. Aortic aneurysm, pulmonary aortic hypertension may be present. Possible portal hypertension. Patient has been admitted to the [facility] floor, oncology consult and abdominal ultrasound ordered to evaluate gallbladder and liver. 08/30: Patient has been seen by oncology and consults were added for Dr. Rivero for lymph node biopsy from the axilla. This has not yet been scheduled. Patient is also had a consult added for Dr. Baird for diarrhea. Patient states that Imodium significantly helped diarrhea yesterday. She is feeling better in general. Ultrasound of the gallbladder region revealed minimal ascites. Hydropic gallbladder. Patient has been afebrile, heart rate 66, blood pressure 123/67, pulse ox 97% on room air. Repeat blood work reveals WBC 1.2, hemoglobin 10.2, platelet 41. Subcu heparin will be discontinued. Other lab work reveals uric acid of 8, iron 26, TIBC 341, iron saturation 7.62, ferritin 50.7, LDH 3.88, total protein PEEP 5.6, vitamin B12 847, folate 18.6. Repeat lipase is 236. Rheumatoid factor is 7, TANIA screen negative. Free Of 0.92 and free lambda 0.65. Coronavirus testing negative. Anticipate possible discharge tomorrow and patient will follow-up for pathology report. 08/31: Patient has been seen by Dr. Rivero and ultrasound of the axilla bilaterally up and done. The right axilla had no evident adenopathy. Left axilla has [address] Rivero will not be doing biopsy. Oncology will make arrangements for interventional radiology to perform biopsy from abdominal/pelvic lymph node and schedule patient for bone marrow biopsy. There was a consult added for infectious disease regarding neutropenic colitis. Flagyl and Levaquin were started yesterday. GI is not planning for any intervention at this point. Patient's diarrhea has resolved after her first dose of Imodium. She states she still has slight discomfort but no cramping and no diarrhea. She denies any nausea vomiting. She is currently on a full liquid diet to be advanced to regular. Repeat lab work reveals WBC 1.1, hemoglobin 9.5, platelet count 38. Sodium 139, potassium 4.2, chloride 110, CO2 25, BUN 15 and creatinine 1.57, INR 0.9. AST is 42, ALT 31, appointment possibly 240, LDH 428 lactic acid 0.8, uric acid 7.8. 09/01: The patient has one formed stool yesterday. Dr. Stout ordered stool culture and C. difficile toxin. He recommended continuing Zosyn and oral antibiotic at discharge. The patient states that she is feeling well today. She is scheduled for bone marrow biopsy and lymph node biopsy by interventional radiology. She is anxious to be discharged home. Oncology has been in contact with patient's daughter and there is talk about transferring to [facility]. Oncology will discuss this with the patient. Repeat lab work reveals WBC 1.1, hemoglobin 10.3, platelet count 38. Creatinine is 1.78. Consult added with nephrology 09/02: Patient is resting comfortably in bed. She is no longer going to be transferred to any other facilities. We'll discuss continuing workup an outpatient basis. Bone marrow biopsy was completed yesterday. Unable to do lymph node biopsy. Lab work shows to be BC 1.1, hemoglobin 10.3, platelets 38, potassium 4.1, BUN 16, creatinine 1.78 AST 53 ALT 40, alkaline phosphatase 277. Patient has been afebrile, pulse 92, respirations 16, blood pressure 130/64, 92% on room air Review Of Systems: Constitutional: No fever, no chills, no night sweats. Reports weight loss. No weakness, fatigue or lethargy. No daytime sleepiness. EENT: No headache. No blurred vision or double vision, no loss of vision. No loss of Hearing, no ringing in the ears, no dizziness. No nasal drainage or congestion. No epistaxis. No sore throat. Lungs: No shortness of breath, cough, no sputum production. No wheezing. Cardiovascular: No chest pain, no lower extremity edema. No palpitations. No paroxysmal nocturnal dyspnea. No orthopnea. No lightheadedness or dizziness. No syncopal episodes. Abdominal: Reports abdominal discomfort. No nausea, vomiting. Denies diarrhea, resolved. No constipation. No bloody or tarry stools. No loss of appetite. Genitourinary: No dysuria, increased frequency, urgency. No urinary retention. Musculoskeletal: No myalgias. No muscle weakness, no gait dysfunction, no frequent falls. No back pain. No neck pain. Integumentary: No wounds, no lesions. No rash or pruritus. No unusual bruising. No change in hair or nails. Neurologic: No aphasia. No facial droop. No change in mentation. No head injury. No headache. No paralysis. No paresthesia. Psychiatric: No depression. No anxiety. No mood swings. Endocrine: No abnormal blood sugars. Reports weight loss. No excessive sweating or thirst. No cold intolerance. Objective - Vital Signs Vital signs: Vital Signs Temp 98.0 F 09/03/19 05:00 Pulse 92 09/03/19 05:00 Resp 16 09/03/19 05:00 BP 130/64 09/03/19 05:00 Pulse Ox 92 L 09/03/19 05:00 Intake & Output 09/02/19 09/03/19 09/03/19 18:59 06:59 18:59 Intake Total 223 1040 360 Output Total 2 Balance 223 1038 360 Weight 72.03 kg Intake: Intake, IV Titration 800 Amount Piperacillin-Tazobactam 3 100 .375 gm In Sodium Chloride 0.9% 100 ml @ 25 mls/hr IVPB Q8HR [facility] Rx# :[id number] Sodium Chloride 0.9% 1, 600 000 ml @ 75 mls/hr IV . [id number] [facility] Rx#:[id number] metroNIDAZOLE-NS PMX 500 100 mg In Saline 1 100ml.bag @ 100 mls/hr IVPB Q8HR [facility] Rx#:[id number] Oral 240 360 Blood Product 223 Platelet Irr Pheresis 2 223 Acda Unit [id number] Output: Urine 2 Other: Voiding Method Toilet Toilet # Voids 4 2 # Bowel Movements 3 2 - Exam Gen: This is a 68-year-old female. Patient is resting in bed and appears to be comfortable and in no acute distress. HEENT: Head is atraumatic, normocephalic. Pupils equal, round. Sclerae is an icteric. Oral mucous membranes are slightly dry. NECK: Supple. No JVD. No lymphadenopathy. No thyromegaly. No lymphadenopathy noted in the neck, groin areas. Small lymph nodes palpated in the axilla. LUNGS: Clear to auscultation. No wheezes or rhonchi. No intercostal retractions. HEART: Regular rate and rhythm. No murmur. ABDOMEN: Soft. Bowel sounds are present. No masses. Minimal lower abdominal tenderness. Palpated and large spleen and borderline enlarged liver. EXTREMITIES: Trace bilateral pedal edema. No calf tenderness. Dorsalis pedis +2 bilaterally. NEUROLOGICAL: Patient is awake, alert and oriented x3. Cranial nerves 2 through 12 are grossly intact. - Labs CBC & Chem 7: 09/02/19 08:56 06/19/20 08:56 Labs: Abnormal Lab Results - Last 24 Hours (Table) 09/02/19 09/02/19 Range/Units 07:11 08:56 Chloride 110 H (98-107) mmol/L Creatinine 1.78 H (0.52-1.04) mg/dL AST 53 H (14-36) U/L ALT 40 H (4-34) U/L Alkaline Phosphatase 277 H (38-126) U/L Total Protein 5.8 L (6.3-8.2) g/dL Albumin 3.3 L (3.5-5.0) g/dL Stool Lactoferrin POSITIVE H (NEGATIVE) Microbiology - Last 24 Hours (Table) 09/02/19 07:11 Stool Culture - Preliminary Stool Assessment and Plan Plan: 1. Abdominal pain and diarrhea of unclear etiology, possible colitis. Continue Imodium as needed for diarrhea. Continue IV fluids. GI consult appreciated. No plan for intervention. Diet to be advanced. Consult with Dr. Stout was added. Continue Flagyl and Levaquin. Repeat stool studies in progress. 2. Acute kidney injury. Avoid nephrotoxic agents. 3. Retroperitoneal adenopathy, pulmonary nodules and splenomegaly, rule out non-Hodgkin's lymphoma, MALT. Ultrasound of the gallbladder/liver as above. Consult with oncology appreciated. Lymph node biopsy and bone marrow biopsy to be obtained. 4. Bicytopenia with leukopenia and thrombocytopenia. Consult with oncology. Repeat lab work in the morning. 5. History of common variable immune deficiency under the care of Dr. Cardona [facility]. Patient is on Hizentra weekly. 6. Generalized anxiety disorder. Continue Xanax 0.5 mg at bedtime, Celexa 40 mg at bedtime. 7. Chronic kidney disease stage III. Baseline creatinine 1.3. Continue IV fluids at 50 mL per hour. 8. DVT prophylaxis. Heparin subcu every 12 hours. 9. GI prophylaxis. Protonix daily. 10. COVID-19 infection not present. Discharge plan: Home possibly tomorrow Impression and plan of care have been directed as dictated by the signing physician. Amparo Davies nurse practitioner acting as scribe for signing physician
--- NOTE | 2019-09-03 12:11 | P.PN ---
Progress Note - Text Progress Note Date: 09/03/19 Patient continues with diarrhea and hyperactive bowel sounds, unable to advance diet past full liquid as symptomatic. Positive for Fecal leukocytes. Do not recommend discharge until after able to tolerate diet without diarrhea, and/or recovery of blood counts as she is severely neutropenic and immunocompromised with picture of neutropenic colitis there is increased risk for perforation. Discussed with GI and plan for Sig Flex versus scope on Thursday if continues to remain symptomatic. Patient is poor historian but sister and nursing aware and closely monitoring and charting. COntinue IV antibiotics, ID is following. With her picture a fever may not present. DO not recommend discharge over weekend.
[2019-09-03 12:43] LABS: Basophils % (A) 1 %; Eosinophils # (A) 0.1 k/uL (0-0.7); Eosinophils % (A) 8 %; HCT 31.1 % (34.0-46.0); HGB 9.9 gm/dL (11.4-16.0); Hypochromasia Slight; Lymphocytes # (A) 0.3 k/uL (1.0-4.8); Lymphocytes % (A) 28 %; MCH 27.6 pg (25.0-35.0); MCHC 31.7 g/dL (31.0-37.0); MCV 87.2 fL (80.0-100.0); Mean Platelet Volume 8.9; Monocytes # (A) 0.1 k/uL (0-1.0); Monocytes % (A) 11 %; Neutrophils # (A) 0.5 k/uL (1.3-7.7); Neutrophils % (A) 48 %; RBC 3.57 m/uL (3.80-5.40); RDW 14.7 % (11.5-15.5)
[2019-09-03 12:50] LABS: Albumin 3.3 g/dL (3.5-5.0); Calcium 8.3 mg/dL (8.4-10.2); Phosphorus 3.1 mg/dL (2.5-4.5); Potassium 3.3 mmol/L (3.5-5.1); Total Bilirubin 0.5 mg/dL (0.2-1.3); Total Protein 5.9 g/dL (6.3-8.2); Uric Acid 5.4 mg/dL (3.7-7.4)
[2019-09-03 13:31] LABS: WBC 1.1 k/uL (3.8-10.6)
[2019-09-03 13:32] LABS: Platelet Count 49 k/uL (150-450)
--- NOTE | 2019-09-03 15:28 | P.PN ---
Subjective Progress Note Date: 09/03/19 Principal diagnosis: diarrhea Pt had 3 BM yesterday, 2 BM today so far. Continues to be on liquid diet with stable cytopenia's including ANC 0.5. Objective - Vital Signs Vital signs: Vital Signs Temp 98 F 09/03/19 11:29 Pulse 82 09/03/19 11:29 Resp 16 09/03/19 11:29 BP 150/74 09/03/19 11:29 Pulse Ox 95 09/03/19 11:29 Intake & Output 09/02/19 09/03/19 09/03/19 18:59 06:59 18:59 Intake Total 223 1040 360 Output Total 2 Balance 223 1038 360 Weight 72.03 kg Intake: Intake, IV Titration 800 Amount Piperacillin-Tazobactam 3 100 .375 gm In Sodium Chloride 0.9% 100 ml @ 25 mls/hr IVPB Q8HR [facility] Rx# :[id number] Sodium Chloride 0.9% 1, 600 000 ml @ 75 mls/hr IV . [id number] [facility] Rx#:[id number] metroNIDAZOLE-NS PMX 500 100 mg In Saline 1 100ml.bag @ 100 mls/hr IVPB Q8HR [facility] Rx#:[id number] Oral 240 360 Blood Product 223 Platelet Irr Pheresis 2 223 Acda Unit [id number] Output: Urine 2 Other: Voiding Method Toilet Toilet # Voids 4 2 # Bowel Movements 3 2 - Exam Constitutional: No acute distress. HEENT: Conjunctival pallor. Mucosa moist. Neck: Neck supple. Lungs:No respiratory distress. Heart: Normal rate. Abdomen: Soft, nontender. Distended. MSK: 4/4 strength in all 4 extremities. Neuro: Alert and oriented x 3. Skin: No jaundice. Psych: Appropriate affect. - Labs CBC & Chem 7: 09/03/19 12:18 09/03/19 12:18 Labs: Abnormal Lab Results - Last 24 Hours (Table) 09/02/19 09/03/19 09/03/19 Range/Units 07:11 12:18 12:18 WBC 1.1 L* (3.8-10.6) k/uL RBC 3.57 L (3.80-5.40) m/uL Hgb 9.9 L (11.4-16.0) gm/dL Hct 31.1 L (34.0-46.0) % Plt Count 49 L (150-450) k/uL Neutrophils # 0.5 L (1.3-7.7) k/uL Lymphocytes # 0.3 L (1.0-4.8) k/uL Potassium 3.3 L (3.5-5.1) mmol/L Chloride 108 H (98-107) mmol/L Creatinine 1.66 H (0.52-1.04) mg/dL Glucose 113 H (74-99) mg/dL Calcium 8.3 L (8.4-10.2) mg/dL AST 45 H (14-36) U/L Alkaline Phosphatase 242 H (38-126) U/L Total Protein 5.9 L (6.3-8.2) g/dL Albumin 3.3 L (3.5-5.0) g/dL Stool Lactoferrin POSITIVE H (NEGATIVE) Microbiology - Last 24 Hours (Table) 09/02/19 07:11 Stool Culture - Preliminary Stool Assessment and Plan Assessment: 1. CVID 2. Enteritis, unclear etiology, with persistent diarrhea 3. Pancytopenia, including neutropenia, possible reactive/consumptive, rule out bone marrow disease 4. LAD, possibly reactive vs due to lymphoma, s/p BMB as unable to complete LN biopsy Plan: Ms. 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 Here for persistent diarrhea and found to have pancytopenia with severe neutropenia, ANC 0.5. Also with LAD of unclear etiology, reactive vs lymphoma. Unable to proceed with LN biopsy due to size and location of LN's. S/p BMB, awaiting pathology. Continues to have diarrhea, with 2-3 watery BM per day, only able to tolerate liquid diet. GI on board with possible plan of sigmoidoscopy. Pt on antibiotics, with ID following as well. 1- Awaiting BMB results to rule out lymphoma/BM disorder causing cytopenia's. 2- supportive transfusion for Hgb <7 and plt <15 3- GI and ID managing diarrhea; this is concerning in the setting of chronically immunosuppressed pt. Neutropenia could be consumptive due to underlying cause of diarrhea, ie IBD vs infection. 4- G-CSF support if sigmoidoscopy planned in addition to antibiotic therapy to avoid worsening infection 5- Recommend completing work up and management of diarrhea inpatient due to severe immunocompromise and need of electrolyte replacement. Discussed with pt and family at bedside and they are agreeable. All questions answered.
[2019-09-03] MEDS: traMADol 50 MG TAB PO PRN (15:30)
[2019-09-03] MEDS: hydrOXYzine HCL 25 MG TAB PO PRN (15:46)
--- NOTE | 2019-09-03 16:16 | XR ---
EXAMINATION TYPE: XR chest 1V DATE OF EXAM: 09/03/2019 COMPARISON: NONE HISTORY: 68-year-old female with CHF TECHNIQUE: Single frontal view of the chest is obtained. FINDINGS: Heart borderline enlarged. Diffuse interstitial opacities. No dolly consolidation or sizab le effusion. IMPRESSION: Borderline heart size and diffuse interstitial opacity. Mild CHF with pulmonary vascular congestion n ot excluded.
--- NOTE | 2019-09-03 16:19 | P.PN ---
Subjective Progress Note Date: 09/03/19 Principal diagnosis: Abdominal pain, diarrhea Patient is seen lying in bed today and reporting to loose bowel movements. Tolerating her diet. Denying any abdominal pain. Objective - Vital Signs Vital signs: Vital Signs Temp 98.0 F 09/03/19 05:00 Pulse 92 09/03/19 05:00 Resp 16 09/03/19 05:00 BP 130/64 09/03/19 05:00 Pulse Ox 92 L 09/03/19 05:00 Intake & Output 09/02/19 09/03/19 09/03/19 18:59 06:59 18:59 Intake Total 223 1040 Output Total 2 Balance 223 1038 Weight 72.03 kg Intake: Intake, IV Titration 800 Amount Piperacillin-Tazobactam 3 100 .375 gm In Sodium Chloride 0.9% 100 ml @ 25 mls/hr IVPB Q8HR [facility] Rx# :[id number] Sodium Chloride 0.9% 1, 600 000 ml @ 75 mls/hr IV . [id number] [facility] Rx#:[id number] metroNIDAZOLE-NS PMX 500 100 mg In Saline 1 100ml.bag @ 100 mls/hr IVPB Q8HR [facility] Rx#:[id number] Oral 240 Blood Product 223 Platelet Irr Pheresis 2 223 Acda Unit [id number] Output: Urine 2 Other: Voiding Method Toilet Toilet # Voids 4 2 # Bowel Movements 3 2 - Exam On physical examination, patient appears comfortable in no apparent distress. HEAD: Normocephalic, atraumatic. EYES: No scleral icterus. No conjunctival injection. MOUTH: No lesions, tongue midline. NECK: Trachea midline, no gross abnormalities. ABDOMEN: Soft, obese. Bowel sounds are positive. No organomegaly. No guarding or rigidity. EXTREMITIES: No pedal edema. SKIN: No rashes, no jaundice. NEUROLOGIC: Alert and oriented x3. No focal deficits. - Labs CBC & Chem 7: 09/03/19 12:18 09/03/19 12:18 Labs: Abnormal Lab Results - Last 24 Hours (Table) 09/02/19 09/02/19 09/02/19 Range/Units 07:11 08:56 08:56 WBC 1.1 L* (3.8-10.6) k/uL RBC 3.69 L (3.80-5.40) m/uL Hgb 10.3 L (11.4-16.0) gm/dL Hct 31.8 L (34.0-46.0) % Plt Count 38 L (150-450) k/uL Neutrophils # 0.5 L (1.3-7.7) k/uL Lymphocytes # 0.3 L (1.0-4.8) k/uL Chloride 110 H (98-107) mmol/L Creatinine 1.78 H (0.52-1.04) mg/dL AST 53 H (14-36) U/L ALT 40 H (4-34) U/L Alkaline Phosphatase 277 H (38-126) U/L Total Protein 5.8 L (6.3-8.2) g/dL Albumin 3.3 L (3.5-5.0) g/dL Stool Lactoferrin POSITIVE H (NEGATIVE) Microbiology - Last 24 Hours (Table) 09/02/19 07:11 Stool Culture - Preliminary Stool Assessment and Plan (1) Diarrhea Narrative/Plan: 68-year-old female who presented to the hospital with diarrhea occurring over the past month reported as 5-6 loose bowel movements daily without signs or symptoms of GI bleeding with associated lower abdominal cramping. No prior history of diarrhea with the patient reporting chronic constipation at baseline. The patient had stool studies in the outpatient setting which were negative. Computed tomography scan of the abdomen did show splenomegaly and retroperitoneal adenopathy with suspicion for possible lymphoma with colitis not excluded. Unclear etiology of symptoms, however the patient does report celiac testing in the past which was negative, may be related to infectious colitis, neutropenic colitis or other etiology. She has had improvement with antidiarrheals, but again reported some loose stool to the. Current Visit: Yes Status: Acute Code(s): R19.7 - DIARRHEA, UNSPECIFIED SNOMED Code(s): 61528444 (2) Abdominal pain Current Visit: Yes Status: Acute Code(s): R10.9 - UNSPECIFIED ABDOMINAL PAIN SNOMED Code(s): 18778471 (3) Hypogammaglobulinaemia, unspecified Current Visit: Yes Status: Acute Code(s): D80.1 - NONFAMILIAL HYPOGAMMAGLOBULINEMIA SNOMED Code(s): 132840432 (4) Pancytopenia Current Visit: Yes Status: Acute Code(s): D61.818 - OTHER PANCYTOPENIA SNOMED Code(s): 382641861 Plan: Supportive care Okay for full liquid diet and slowly advancing diet as tolerated Trial of dicyclomine for abdominal cramping Continue evaluation by hematology/oncology and surgical service for possible underlying malignancy, with results of bone marrow biopsy pending Continue symptomatically treatment with antidiarrheals and/or cholestyramine as needed, patient given a dose of loperamide today We'll continue to monitor stool output Stool lactoferrin positive with other stool studies pending Continue broad-spectrum antibiotic therapy No plans for colonoscopic evaluation at this time, however will continue to monitor her symptomatically and reevaluate if symptoms persist, can consider limited flexible sigmoidoscopy for biopsy, however severe neutropenia may be pro hibitive of the exam Thank you for allowing us to participate in the care of the patient
--- NOTE | 2019-09-03 18:31 | CONS ---
CONSULTATION REASON FOR CONSULT: Renal failure. HISTORY OF PRESENT ILLNESS: Patient is a 68-year-old female who was admitted to the hospital on 08/29/2019 with complaints of nausea, vomiting and diarrhea, which was going on for about 3 weeks prior to admission. The patient was evaluated by GI and Surgery. The patient states her diarrhea is improved with the Imodium. She also has bilateral pulmonary nodules. Chest CT was done on 08/29/2019. She had multiple pulmonary nodules along with mediastinal and hilar adenopathy was noted. The patient had a bone marrow biopsy yesterday, results of which are currently pending. Her serum creatinine was 1.5 on initial admission. It increased to 1.7 yesterday and today it is at 1.6. The patient's previous creatinine has been about 1.1-1.2 mg/dL all the way back to 2014. She had been maintained on IV fluids which are currently decreased. The patient denies any chest pains or shortness of breath. She has been voiding, although urine output is not accurately charted. The patient had a chest CT on August [address] Shelton without contrast. PAST MEDICAL HISTORY: History of bilateral pulmonary nodules, gastroesophageal reflux disease, common variable immunodeficiency, severe dermatitis, hypertension. PAST SURGICAL HISTORY: Hysterectomy. SOCIAL HISTORY: Negative for smoking, drug abuse or alcohol abuse. MEDICATIONS: Medications prior to admission included Xanax, Celexa, Lyrica, cataracts, tramadol. ALLERGIES: None. REVIEW OF SYSTEMS: As per HPI. Other systems negative. PHYSICAL EXAMINATION: Patient is comfortable, awake, not in any acute distress. Alert, oriented x3. Blood pressure is 130/64, heart rate 92 per minute, she is afebrile. Examination of the heart S1, S2. Examination of the lungs, bilateral breath sounds are heard. Abdomen is soft, nontender. Examination of lower extremities shows trace edema bilaterally. SOFTWARE TEST ANALYST exam is grossly intact. LABS: Sodium 138, potassium 3.3, chloride 108, CO2 is 23. BUN 15, creatinine 1.6, hemoglobin 9.9, white cell count 1.1, platelet count 49,000. ASSESSMENT: 1. Acute kidney injury, rule out urine retention. No significant hypotension noted. No nephrotoxic medications noted at this time. The patient has not received any IV contrast. I will maintain her on IV fluids and check a chest x-ray. She does not appear to be significantly volume overloaded. The patient states that she has had lower extremity swelling for some time now and this is not new. 2. Lower extremity edema, possibly related to Lyrica versus congestive heart failure. 3. Bilateral pulmonary nodules with hilar and mediastinal lymphadenopathy. 4. Diarrhea with Clostridium difficile toxin negative, maintained on Imodium, currently improved. 5. History of common variable immunodeficiency. 6. Leukopenia and thrombocytopenia. PLAN: Follow up on results of bone marrow biopsy. I will continue with IV fluids for now. Check a chest x-ray. Check ultrasound of the kidneys and check postvoid residual. Thank you for this consultation. Will continue to follow the patient with you during her admission. MMODL / IJN: [id number] /
[2019-09-03] MEDS: ALPRAZolam 1 MG TAB PO SCH (21:39)
[2019-09-03] MEDS: CITALOPRAM HYDROBROMIDE 20 MG TAB PO SCH (21:39)
--- NOTE | 2019-09-03 23:40 | PN ---
PROGRESS NOTE DATE OF SERVICE: 09/03/2019 REASON FOR FOLLOW UP: Diarrhea and a question of colitis. INTERVAL HISTORY: Patient is currently afebrile. The patient did mention did have multiple loose stools and Imodium has been restarted by admitting. The patient denies having any chest pain. No shortness of breath or cough. No mucus in the stool. PHYSICAL EXAMINATION: Blood pressure 110/76, pulse of 71, temperature 98. She is 96% on room air. General description is an elderly female up in the room in no distress. Respiratory system: Unlabored breathing, clear to auscultation anteriorly. Heart S1, S2. Regular rate and rhythm. Abdomen soft, no tenderness. LABS: Hemoglobin 9.9, white count 1.1 with BUN of 15, creatinine 1.62. Cultures have been ordered. DIAGNOSTIC IMPRESSION AND PLAN: Patient with diarrhea with CT did show evidence of colitis, question infectious versus noninfectious with worsening diarrhea with Zosyn. Will be switched to Rocephin. Continue Flagyl and follow up on the stool culture. Continue supportive care. MMODL / IJN: [id number] /
[2019-09-04] MEDS: SODIUM CHLORIDE 0.9% 1,000 ML IV SCH ×3 (00:06→23:04)
[2019-09-04] MEDS: PIPERACILLIN-TAZOBACTAM 3.375 GM in SODIUM CHLORIDE 0.9% 100 ML IVPB SCH ×3 (00:08→17:52)
[2019-09-04] MEDS: metroNIDAZOLE-NS PMX 500 MG in SALINE 1 100ML.BAG IVPB SCH ×4 (00:08→23:03)
[2019-09-04 07:19] LABS: Basophils % (A) 1 %; Eosinophils # (A) 0.1 k/uL (0-0.7); Eosinophils % (A) 6 %; HGB 9.4 gm/dL (11.4-16.0); Hypochromasia Slight; Lymphocytes # (A) 0.3 k/uL (1.0-4.8); Lymphocytes % (A) 33 %; MCH 27.2 pg (25.0-35.0); MCHC 31.5 g/dL (31.0-37.0); MCV 86.3 fL (80.0-100.0); Mean Platelet Volume 8.9; Monocytes # (A) 0.1 k/uL (0-1.0); Monocytes % (A) 11 %; Neutrophils # (A) 0.5 k/uL (1.3-7.7); Neutrophils % (A) 46 %; Platelet Count 47 k/uL (150-450); RBC 3.47 m/uL (3.80-5.40)
[2019-09-04 07:31] LABS: Albumin 2.9 g/dL (3.5-5.0); Calcium 8.2 mg/dL (8.4-10.2); Phosphorus 3.1 mg/dL (2.5-4.5); Potassium 3.6 mmol/L (3.5-5.1); Total Bilirubin 0.4 mg/dL (0.2-1.3); Total Protein 5.3 g/dL (6.3-8.2); Uric Acid 5.1 mg/dL (3.7-7.4)
[2019-09-04] MEDS: CHOLESTYRAMINE (WITH SUGAR) 4 GM PACKET PO SCH ×4 (07:44→20:13)
[2019-09-04] MEDS: ALLOPURINOL 300 MG TAB PO SCH (07:47)
[2019-09-04] MEDS: PANTOPRAZOLE 40 MG TABLET PO SCH (07:47)
[2019-09-04] MEDS: ACYCLOVIR 800 MG TAB PO SCH ×3 (07:47→21:09)
[2019-09-04] MEDS: PREGABALIN 100 MG CAP PO SCH (07:47)
--- NOTE | 2019-09-04 11:52 | P.PN ---
Subjective Progress Note Date: 09/04/19 his is a 68-year-old female patient of Dr. 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 Cardona in [facility], on Hizentra weekly. Patient gives history of having diarrhea for several weeks up to one month. She also has abdominal pain/c ramping that she describes as a discomfort in the lower abdominal quadrants. She thinks her last colonoscopy was 3 years ago but most likely longer is there is no report on record here. She has had no recent hospitalizations. She states she has lost 10 pounds. No nausea or vomiting, no fever or chills. No cough. No chest pain. She does have lower extremity edema which is been chronic. She denies any dysuria. She denies any previous history of cancer. She has had no follow-up with Dr. Wu. He did perform a CAT scan of the chest to rule out lung cancer in 2013. Last Thursday, patient contacted her PCP office and stool specimen was provided for testing: Cryptosporidium negative, Giardia negative, C. difficile toxin negative. She received a call from the office yesterday and she was told that her culture was negative. Patient states that she was still having diarrhea and abdominal discomfort and was told to take Imodium and an appointment was set up for October 10. Patient was not happy with this and sought treatment by coming into the hospital. Patient presented to [facility] emergency center for evaluation. She was found to have a white count of 1.6, hemoglobin 11.9, platelet count 63. BUN 18 and creatinine 1.51. Electrolytes normal, blood suga r 135. AST 40, ALT 31, alkaline phosphatase 294, lipase 593. Urinalysis was negative. CAT scan of the abdomen pelvis without contrast revealed retroperitoneal adenopathy, splenomegaly, correlate for lymphoma, leukemia, metastatic disease. Difficult to exclude colitis. Nondescript inflammatory c hanges about the gallbladder. Subsequently, a CAT scan of the chest was ordered without contrast which revealed multiple pulmonary nodules, mediastinal and hilar adenopathy. Aortic aneurysm, pulmonary aortic hypertension may be present. Possible portal hypertension. Patient has been admitted to the [facility] floor, oncology consult and abdominal ultrasound ordered to evaluate gallbladder and liver. 08/30: Patient has been seen by oncology and consults were added for Dr. Rivero for lymph node biopsy from the axilla. This has not yet been scheduled. Patient is also had a consult added for Dr. Baird for diarrhea. Patient states that Imodium significantly helped diarrhea yesterday. She is feeling better in general. Ultrasound of the gallbladder region revealed minimal ascites. Hydropic gallbladder. Patient has been afebrile, heart rate 66, blood pressure 123/67, pulse ox 97% on room air. Repeat blood work reveals WBC 1.2, hemoglobin 10.2, platelet 41. Subcu heparin will be discontinued. Other lab work reveals uric acid of 8, iron 26, TIBC 341, iron saturation 7.62, ferritin 50.7, LDH 3.88, total protein PEEP 5.6, vitamin B12 847, folate 18.6. Repeat lipase is 236. Rheumatoid factor is 7, TANIA screen negative. Free Of 0.92 and free lambda 0.65. Coronavirus testing negative. Anticipate possible discharge tomorrow and patient will follow-up for pathology report. 08/31: Patient has been seen by Dr. Rivero and ultrasound of the axilla bilaterally up and done. The right axilla had no evident adenopathy. Left axilla has [address] Rivero will not be doing biopsy. Oncology will make arrangements for interventional radiology to perform biopsy from abdominal/pelvic lymph node and schedule patient for bone marrow biopsy. There was a consult added for infectious disease regarding neutropenic colitis. Flagyl and Levaquin were started yesterday. GI is not planning for any intervention at this point. Patient's diarrhea has resolved after her first dose of Imodium. She states she still has slight discomfort but no cramping and no diarrhea. She denies any nausea vomiting. She is currently on a full liquid diet to be advanced to regular. Repeat lab work reveals WBC 1.1, hemoglobin 9.5, platelet count 38. Sodium 139, potassium 4.2, chloride 110, CO2 25, BUN 15 and creatinine 1.57, INR 0.9. AST is 42, ALT 31, appointment possibly 240, LDH 428 lactic acid 0.8, uric acid 7.8. 09/01: The patient has one formed stool yesterday. Dr. Stout ordered stool culture and C. difficile toxin. He recommended continuing Zosyn and oral antibiotic at discharge. The patient states that she is feeling well today. She is scheduled for bone marrow biopsy and lymph node biopsy by interventional radiology. She is anxious to be discharged home. Oncology has been in contact with patient's daughter and there is talk about transferring to [facility]. Oncology will discuss this with the patient. Repeat lab work reveals WBC 1.1, hemoglobin 10.3, platelet count 38. Creatinine is 1.78. Consult added with nephrology 09/02: Patient is resting comfortably in bed. She is no longer going to be transferred to any other facilities. We'll discuss continuing workup an outpatient basis. Bone marrow biopsy was completed yesterday. Unable to do lymph node biopsy. Lab work shows to be BC 1.1, hemoglobin 10.3, platelets 38, potassium 4.1, BUN 16, creatinine 1.78 AST 53 ALT 40, alkaline phosphatase 277. Patient has been afebrile, pulse 92, respirations 16, blood pressure 130/64, 92% on room air 09/03: Patient is resting in bed. She still had episodes of diarrhea. She is able to tolerate advancing her diet. Oncology recommended that she stays over the weekend. Plan for possible colonoscopy on Thursday. Patient remained afebrile, pulse 75, respirations 16, blood pressure 114/64, 91% on room air. Review Of Systems: Constitutional: No fever, no chills, no night sweats. Reports weight loss. No weakness, fatigue or lethargy. No daytime sleepiness. EENT: No headache. No blurred vision or double vision, no loss of vision. No loss of Hearing, no ringing in the ears, no dizziness. No nasal drainage or congestion. No epistaxis. No sore throat. Lungs: No shortness of breath, cough, no sputum production. No wheezing. Cardiovascular: No chest pain, no lower extremity edema. No palpitations. No paroxysmal nocturnal dyspnea. No orthopnea. No lightheadedness or dizziness. No syncopal episodes. Abdominal: Reports abdominal discomfort. No nausea, vomiting. Denies diarrhea, resolved. No constipation. No bloody or tarry stools. No loss of appetite. Genitourinary: No dysuria, increased frequency, urgency. No urinary retention. Musculoskeletal: No myalgias. No muscle weakness, no gait dysfunction, no frequent falls. No back pain. No neck pain. Integumentary: No wounds, no lesions. No rash or pruritus. No unusual bruising. No change in hair or nails. Neurologic: No aphasia. No facial droop. No change in mentation. No head injury. No headache. No paralysis. No paresthesia. Psychiatric: No depression. No anxiety. No mood swings. Endocrine: No abnormal blood sugars. Reports weight loss. No excessive sweating or thirst. No cold intolerance. Objective - Vital Signs Vital signs: Vital Signs Temp 98.2 F 09/04/19 04:26 Pulse 75 09/04/19 04:26 Resp 16 09/04/19 04:26 BP 114/64 09/04/19 04:26 Pulse Ox 91 L 09/04/19 04:26 Intake & Output 09/03/19 09/04/19 09/04/19 18:59 06:59 18:59 Intake Total 4300 1140 Output Total 2 Balance 4298 1140 Intake: Intake, IV Titration 1100 900 Amount Piperacillin-Tazobactam 3 100 .375 gm In Sodium Chloride 0.9% 100 ml @ 25 mls/hr IVPB Q8HR [facility] Rx# :[id number] Sodium Chloride 0.9% 1, 900 900 000 ml @ 75 mls/hr IV . [id number] [facility] Rx#:[id number] metroNIDAZOLE-NS PMX 500 100 mg In Saline 1 100ml.bag @ 100 mls/hr IVPB Q8HR [facility] Rx#:[id number] Oral 3200 240 Output: Urine 2 Other: Voiding Method Toilet Toilet # Voids 4 1 # Bowel Movements 0 - Exam Gen: This is a 68-year-old female. Patient is resting in bed and appears to be comfortable and in no acute distress. HEENT: Head is atraumatic, normocephalic. Pupils equal, round. Sclerae is anicteric. Oral mucous membranes are slightly dry. NECK: Supple. No JVD. No lymphadenopathy. No thyromegaly. No lymphadenopathy noted in the neck, groin areas. Small lymph nodes palpated in the axilla. LUNGS: Clear to auscultation. No wheezes or rhonchi. No intercostal retractions. HEART: Regular rate and rhythm. No murmur. ABDOMEN: Soft. Bowel sounds are present. No masses. Minimal lower abdominal tenderness. Palpated and large spleen and borderline enlarged liver. EXTREMITIES: Trace bilateral pedal edema. No calf tenderness. Dorsalis pedis +2 bilaterally. NEUROLOGICAL: Patient is awake, alert and oriented x3. Cranial nerves 2 through 12 are grossly intact. - Labs CBC & Chem 7: 09/04/19 06:24 09/04/19 06:24 Labs: Abnormal Lab Results - Last 24 Hours (Table) 09/03/19 09/03/19 09/04/19 Range/Units 12:18 12:18 06:24 WBC 1.1 L* 1.0 L* (3.8-10.6) k/uL RBC 3.57 L 3.47 L (3.80-5.40) m/uL Hgb 9.9 L 9.4 L (11.4-16.0) gm/dL Hct 31.1 L 30.0 L (34.0-46.0) % Plt Count 49 L 47 L (150-450) k/uL Neutrophils # 0.5 L 0.5 L (1.3-7.7) k/uL Lymphocytes # 0.3 L 0.3 L (1.0-4.8) k/uL Potassium 3.3 L (3.5-5.1) mmol/L Chloride 108 H (98-107) mmol/L Creatinine 1.66 H (0.52-1.04) mg/dL Glucose 113 H (74-99) mg/dL Calcium 8.3 L (8.4-10.2) mg/dL AST 45 H (14-36) U/L Alkaline Phosphatase 242 H (38-126) U/L Total Protein 5.9 L (6.3-8.2) g/dL Albumin 3.3 L (3.5-5.0) g/dL 09/04/19 Range/Units 06:24 WBC (3.8-10.6) k/uL RBC (3.80-5.40) m/uL Hgb (11.4-16.0) gm/dL Hct (34.0-46.0) % Plt Count (150-450) k/uL Neutrophils # (1.3-7.7) k/uL Lymphocytes # (1.0-4.8) k/uL Potassium (3.5-5.1) mmol/L Chloride 111 H (98-107) mmol/L Creatinine 1.62 H (0.52-1.04) mg/dL Glucose (74-99) mg/dL Calcium 8.2 L (8.4-10.2) mg/dL AST 38 H (14-36) U/L Alkaline Phosphatase 227 H (38-126) U/L Total Protein 5.3 L (6.3-8.2) g/dL Albumin 2.9 L (3.5-5.0) g/dL Assessment and Plan Plan: 1. Abdominal pain and diarrhea of unclear etiology, possible colitis. Continue Imodium as needed for diarrhea. Continue IV fluids. GI consult appreciated. We'll discuss possible colonoscopy for tomorrow. Diet to be advanced. Consult with Dr. Stout was added. Continue Flagyl and Levaquin. Repeat stool studies in progress. 2. Acute kidney injury. Avoid nephrotoxic agents. 3. Retroperitoneal adenopathy, pulmonary nodules and splenomegaly, rule out non-Hodgkin's lymphoma, MALT. Ultrasound of the gallbladder/liver as above. C onsult with oncology appreciated. Lymph node biopsy and bone marrow biopsy to be obtained. 4. Bicytopenia with leukopenia and thrombocytopenia. Consult with oncology. Repeat lab work in the morning. 5. History of common variable immune deficiency under the care of Dr. Cardona [facility]. Patient is on Hizentra weekly. 6. Generalized anxiety disorder. Continue Xanax 0.5 mg at bedtime, Celexa 40 mg at bedtime. 7. Chronic kidney disease stage III. Baseline creatinine 1.3. Continue IV fluids at 50 mL per hour. 8. DVT prophylaxis. Heparin subcu every 12 hours. 9. GI prophylaxis. Protonix daily. 10. COVID-19 infection not present. Discharge plan: Home possibly tomorrow Impression and plan of care have been directed as dictated by the signing physician. Amparo Davies nurse practitioner acting as scribe for signing physician
[2019-09-04] MEDS: hydrOXYzine HCL 25 MG TAB PO PRN (14:49)
[2019-09-04] MEDS: traMADol 50 MG TAB PO PRN (14:54)
--- NOTE | 2019-09-04 16:09 | PN ---
PROGRESS NOTE Patient is seen for followup for acute kidney injury. The patient has an underlying history of bilateral pulmonary nodules with hilar and mediastinal lymphadenopathy, currently being worked up. She was admitted with complaints of diarrhea. Her serum creatinine was 1.5 mg/dL initially. It increased to 1.7 and now it is staying at about 1.6. The patient has had good urine output. She was maintained on IV fluids which were eventually discontinued as patient was noted to have some edema. She states her diarrhea has improved, although it is still present. UA is completely benign and abdominal CT on admission does not show any evidence of obstructive uropathy. Patient, however, does have retroperitoneal adenopathy but there was no hydronephrosis seen. EXAMINATION: Today patient is comfortable. Blood pressure is 114/64, heart rate 75 per minute, she is afebrile. Examination of the heart S1, S2. Examination of the lungs, bilateral breath sounds are heard. Lungs are clear. Abdomen is soft, nontender. Examination of lower extremities shows edema 1+ bilaterally. 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 LAB: Show sodium of 141, potassium 3.6, chloride 111, CO2 is 24, BUN 12, creatinine 1.62, hemoglobin 9.4, white cell count 1.0, platelet count 47,000. ASSESSMENT: 1. Acute kidney injury, most likely prerenal. Creatinine staying at about 1.6. Previous creatinine was 1.3 in July of 2018. UA is completely benign. Since there is new retroperitoneal adenopathy, there is consideration for underlying obstructive uropathy although no significant hydronephrosis was seen on the CT scan. I will order an ultrasound of the kidneys as well. In the meantime, patient will be also started on IV fluids. 2. Hypokalemia, status post replacement. 3. Bilateral pulmonary nodules with hilar adenopathy and mediastinal lymphadenopathy with suspicion for underlying lymphoma. 4. Bicytopenia with leukopenia, thrombocytopenia, being followed by Oncology. 5. History of common variable immunodeficiency. 6. Chronic kidney disease stage 3, baseline creatinine 1.3, possible underlying obstructive uropathy. PLAN: Check ultrasound of the kidneys. Add IV fluids. Repeat labs in a.m. MMODL / IJN: [id number] /
--- NOTE | 2019-09-04 16:22 | P.PN ---
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 [facility] unable to accept direct therefore will transfer to accepting services at [facility]. Per patient a regular diet was ordered for her today and she took a bite of cottage cheese and the "bubbling" and abdominal distention and diarrhea started closely after. Continue on clear liquid only. I spoke with Dr. Kidd and GI. She will need higher level of care for lymph biopsy and Colonoscopy. Spoke to patient and accepting physician is Dr. Glenn Coon and Dr. Addison. Patient aware and agreeable to plan.
--- NOTE | 2019-09-04 17:00 | US ---
EXAMINATION TYPE: US kidneys/renal and bladder DATE OF EXAM: 09/04/2019 COMPARISON: CT 2019 and 2013 CLINICAL HISTORY: RF. Renal failure EXAM MEASUREMENTS: Right Kidney: 9.7 x 4.4 x 4.1 cm Left Kidney: 9.1 x 4.7 x 3.9 cm Right Kidney: wnl Left Kidney: wnl Bladder: wnl Bilateral Jets seen: No Incidental findings, small amount of ascites, known enlarged spleen redemonstrated There is no evidence for hydronephrosis at this point in time. No nephrolithiasis is seen. No rikki s are identified. The urinary bladder is anechoic. Bilateral ureteral jets are not seen. IMPRESSION: No hydronephrosis is noted bilaterally.
--- NOTE | 2019-09-04 17:15 | P.PN ---
Subjective Progress Note Date: 09/04/19 Principal diagnosis: Abdominal pain, diarrhea Patient is seen lying in bed today and reporting a formed bowel movement this morning. No nausea or vomiting reported. Objective - Vital Signs Vital signs: Vital Signs Temp 98.2 F 09/04/19 04:26 Pulse 75 09/04/19 04:26 Resp 16 09/04/19 04:26 BP 114/64 09/04/19 04:26 Pulse Ox 91 L 09/04/19 04:26 Intake & Output 09/03/19 09/04/19 09/04/19 18:59 06:59 18:59 Intake Total 4300 1140 Output Total 2 Balance 4298 1140 Intake: Intake, IV Titration 1100 900 Amount Piperacillin-Tazobactam 3 100 .375 gm In Sodium Chloride 0.9% 100 ml @ 25 mls/hr IVPB Q8HR [facility] Rx# :[id number] Sodium Chloride 0.9% 1, 900 900 000 ml @ 75 mls/hr IV . [id number] [facility] Rx#:[id number] metroNIDAZOLE-NS PMX 500 100 mg In Saline 1 100ml.bag @ 100 mls/hr IVPB Q8HR [facility] Rx#:[id number] Oral 3200 240 Output: Urine 2 Other: Voiding Method Toilet Toilet # Voids 4 1 # Bowel Movements 0 - Exam On physical examination, patient appears comfortable in no apparent distress. HEAD: Normocephalic, atraumatic. EYES: No scleral icterus. No conjunctival injection. MOUTH: No lesions, tongue midline. NECK: Trachea midline, no gross abnormalities. ABDOMEN: Soft, obese. Bowel sounds are positive. No organomegaly. No guarding or rigidity. EXTREMITIES: No pedal edema. SKIN: No rashes, no jaundice. NEUROLOGIC: Alert and oriented x3. No focal deficits. - Labs CBC & Chem 7: 09/04/19 06:24 09/04/19 06:24 Labs: Abnormal Lab Results - Last 24 Hours (Table) 09/03/19 09/03/19 09/04/19 Range/Units 12:18 12:18 06:24 WBC 1.1 L* 1.0 L* (3.8-10.6) k/uL RBC 3.57 L 3.47 L (3.80-5.40) m/uL Hgb 9.9 L 9.4 L (11.4-16.0) gm/dL Hct 31.1 L 30.0 L (34.0-46.0) % Plt Count 49 L 47 L (150-450) k/uL Neutrophils # 0.5 L 0.5 L (1.3-7.7) k/uL Lymphocytes # 0.3 L 0.3 L (1.0-4.8) k/uL Potassium 3.3 L (3.5-5.1) mmol/L Chloride 108 H (98-107) mmol/L Creatinine 1.66 H (0.52-1.04) mg/dL Glucose 113 H (74-99) mg/dL Calcium 8.3 L (8.4-10.2) mg/dL AST 45 H (14-36) U/L Alkaline Phosphatase 242 H (38-126) U/L Total Protein 5.9 L (6.3-8.2) g/dL Albumin 3.3 L (3.5-5.0) g/dL 09/04/19 Range/Units 06:24 WBC (3.8-10.6) k/uL RBC (3.80-5.40) m/uL Hgb (11.4-16.0) gm/dL Hct (34.0-46.0) % Plt Count (150-450) k/uL Neutrophils # (1.3-7.7) k/uL Lymphocytes # (1.0-4.8) k/uL Potassium (3.5-5.1) mmol/L Chloride 111 H (98-107) mmol/L Creatinine 1.62 H (0.52-1.04) mg/dL Glucose (74-99) mg/dL Calcium 8.2 L (8.4-10.2) mg/dL AST 38 H (14-36) U/L Alkaline Phosphatase 227 H (38-126) U/L Total Protein 5.3 L (6.3-8.2) g/dL Albumin 2.9 L (3.5-5.0) g/dL Assessment and Plan (1) Diarrhea Narrative/Plan: 68-year-old female who presented to the hospital with diarrhea occurring over the past month reported as 5-6 loose bowel movements daily without signs or symptoms of GI bleeding with associated lower abdominal cramping. No prior history of diarrhea with the patient reporting chronic constipation at baseline. The patient had stool studies in the outpatient setting which were negative. Computed tomography scan of the abdomen did show splenomegaly and retroperitoneal adenopathy with suspicion for possible lymphoma with colitis not excluded. Celiac sprue testing has been negative in the past. Unclear etiology of symptoms, may be related to infectious colitis, neutropenic colitis or other etiology. Current Visit: Yes Status: Acute Code(s): R19.7 - DIARRHEA, UNSPECIFIED SNOMED Code(s): 97640444 (2) Abdominal pain Current Visit: Yes Status: Acute Code(s): R10.9 - UNSPECIFIED ABDOMINAL PAIN SNOMED Code(s): 97106485 (3) Hypogammaglobulinaemia, unspecified Current Visit: Yes Status: Acute Code(s): D80.1 - NONFAMILIAL HYPOGAMMAGLOBULINEMIA SNOMED Code(s): 239731020 (4) Pancytopenia Current Visit: Yes Status: Acute Code(s): D61.818 - OTHER PANCYTOPENIA SNOMED Code(s): 405391972 Plan: Supportive care Okay for liquid diet Trial of dicyclomine for abdominal cramping Continue evaluation by hematology/oncology for possible underlying malignancy, with results of bone marrow biopsy pending Continue symptomatically treatment with antidiarrheals and/or cholestyramine as needed We'll continue to monitor stool output Stool lactoferrin positive with other stool studies pending, PCR for Clostridium difficile ordered Continue broad-spectrum antibiotic therapy Extensive discussion with the patient and hematology/oncology service, and agree that at this time the patient would likely benefit from transfer to tertiary center for escalation of care as the patient does require lymph node biopsy likely require colonoscopy upon improvement of absolute neutrophil count, at this time plan is for transfer to [facility] Thank you for allowing us to participate in the care of the patient
[2019-09-04] MEDS: ALPRAZolam 1 MG TAB PO SCH (21:09)
[2019-09-04] MEDS: CITALOPRAM HYDROBROMIDE 20 MG TAB PO SCH (21:09)
[2019-09-05 06:24] VITALS: RESP 16
[2019-09-05] MEDS: PANTOPRAZOLE 40 MG TABLET PO SCH (07:07)
[2019-09-05] MEDS: metroNIDAZOLE-NS PMX 500 MG in SALINE 1 100ML.BAG IVPB SCH (07:07)
[2019-09-05] MEDS: CHOLESTYRAMINE (WITH SUGAR) 4 GM PACKET PO SCH ×2 (07:08→12:08)
--- NOTE | 2019-09-05 07:19 | PN ---
PROGRESS NOTE DATE OF SERVICE: 09/04/2019 REASON FOR FOLLOWUP: Colitis. INTERVAL HISTORY: Patient is currently afebrile. The patient complaining of abdominal distention after eating a small amount of food. Nausea but no vomiting. Still having some diarrhea. No chest pain, shortness of breath. No cough. PHYSICAL EXAMINATION: Blood pressure 144/65 with a pulse of 100. Temperature 97.5. He is 94% on room air. General description: The patient is an elderly female up in the room in no distress. Respiratory system: Unlabored breathing. Clear to auscultation anteriorly. Heart S1, S2. Regular rate and rhythm. ABDOMEN: Soft, distended. No guarding. No rigidity. LABS: Hemoglobin 9.4, white count 1.0, BUN of 12, creatinine 1.62. DIAGNOSTIC IMPRESSION AND PLAN: Patient admitted to the hospital with diarrhea. CT has been suggestive of colitis in this patient with underlying neutropenia from underlying chemo. The patient is currently on Questran, Flagyl with some of the worsening diarrhea with Zosyn that will be switched over to Rocephin and will monitor clinical course closely. MMODL / IJN: [id number] /
[2019-09-05 07:24] LABS: HCT 29.2 % (34.0-46.0); HGB 9.3 gm/dL (11.4-16.0); Hypochromasia Slight; MCH 27.5 pg (25.0-35.0); MCHC 31.8 g/dL (31.0-37.0); MCV 86.4 fL (80.0-100.0); Mean Platelet Volume 8.7; RBC 3.38 m/uL (3.80-5.40); RDW 15.2 % (11.5-15.5)
[2019-09-05 07:28] LABS: Platelet Count 42 k/uL (150-450); WBC 0.9 k/uL (3.8-10.6)
[2019-09-05 07:36] LABS: Albumin 2.8 g/dL (3.5-5.0); Calcium 7.9 mg/dL (8.4-10.2); Potassium 3.6 mmol/L (3.5-5.1); Total Bilirubin 0.3 mg/dL (0.2-1.3); Total Protein 5.1 g/dL (6.3-8.2)
--- NOTE | 2019-09-05 08:10 | P.DS ---
Providers Date of admission: 08/29/19 21:26 Expected date of discharge: 09/05/19 Attending physician: Ermias Kidd Consults: 08/29/19 21:28 Consult Physician Stat Consulting Provider: Ismael Mitchell Consult Reason/Comments: possible malignancy Do you want consulting provider notified?: Yes 08/30/19 15:17 Consult Physician Routine Consulting Provider: George Rivero Consult Reason/Comments: excisional biopsy of lymph node. Need B and T Cell Flow Cytometry Do you want consulting provider notified?: Yes 08/30/19 15:57 Consult Physician Routine Consulting Provider: Gulshan Baird Consult Reason/Comments: persistent diarrhea? Varices? Neutropenic colitis? Do you want consulting provider notified?: Yes 08/31/19 20:40 Consult Physician Routine Consulting Provider: Tahira Stout Consult Reason/Comments: concern for neutropenic colitis, ruling out hematolo malign Do you want consulting provider notified?: Yes, Notify in am 09/02/19 12:35 Consult Physician Routine Consulting Provider: Farheen Washburn Consult Reason/Comments: Increased Renal function, Increased Uric acid, ?TLS Do you want consulting provider notified?: Yes 09/02/19 12:45 Consult Physician Routine Consulting Provider: Farheen Washburn Consult Reason/Comments: GENO Do you want consulting provider notified?: Yes Primary care physician: Piotr Figueroa [facility] Course: This is a 68-year-old female patient of Dr. Figueroa with past medical history of common variable immune deficiency follows with invoice control clerk Dr. Cardona in [facility], on Hizentra weekly. Patient gives history of having diarrhea for several weeks up to one month. She also has abdominal pain/cramping that she describes as a discomfort in the lower abdominal quadrants. She thinks her last colonoscopy was 3 years ago but most likely longer is there is no report on record here. She has had no recent hospitalizations. She states she has lost 10 pounds. No nausea or vomiting, no fever or chills. No cough. No chest pain. She does have lower extremity edema which is been chronic. She denies any dysuria. She denies any previous history of cancer. She has had no follow-up with Dr. Wu. He did perform a CAT scan of the chest to rule out lung cancer in 2013. Last Thursday, patient contacted her PCP office and stool specimen was provided for testing: Cryptosporidium negative, Giardia negative, C. difficile toxin negative. She received a call from the office yesterday and she was told that her culture was negative. Patient states that she was still having diarrhea and abdominal discomfort and was told to take Imodium and an appointment was set up for October 10. Patient was not happy with this and sought treatment by coming into the hospital. Patient presented to [facility] emergency center for evaluation. She was found to have a white count of 1.6, hemoglobin 11.9, platelet count 63. BUN 18 and creatinine 1.51. Electrolytes normal, blood sugar 135. AST 40, ALT 31, alkaline phosphatase 294, lipase 593. Urinalysis was negative. CAT scan of the abdomen pelvis without contrast revealed retroperitoneal adenopathy, splenomegaly, correlate for lymphoma, leukemia, metastatic disease. Difficult to exclude colitis. Nondescript inflammatory changes about the gallbladder. Subsequently, a CAT scan of the chest was ordered without contrast which revealed multiple pulmonary nodules, mediastinal and hilar adenopathy. Aortic aneurysm, pulmonary aortic hypertension may be present. Possible portal hypertension. Patient has been admitted to the [facility] floor, oncology consult and abdominal ultrasound ordered to evaluate gallbladder and liver. 08/30: Patient has been seen by oncology and consults were added for Dr. Rivero for lymph node biopsy from the axilla. This has not yet been scheduled. Patient is also had a consult added for Dr. Baird for diarrhea. Patient states that Imodium significantly helped diarrhea yesterday. She is feeling better in general. Ultrasound of the gallbladder region revealed minimal ascites. Hydropic gallbladder. Patient has been afebrile, heart rate 66, blood pressure 123/67, pulse ox 97% on room air. Repeat blood work reveals WBC 1.2, hemoglobin 10.2, platelet 41. Subcu heparin will be discontinued. Other lab work reveals uric acid of 8, iron 26, TIBC 341, iron saturation 7.62, ferritin 50.7, LDH 3.88, total protein PEEP 5.6, vitamin B12 847, folate 18.6. Repeat lipase is 236. Rheumatoid factor is 7, TANIA screen negative. Free Of 0.92 and free lambda 0.65. Coronavirus testing negative. Anticipate possible discharge tomorrow and patient will follow-up for pathology report. 08/31: Patient has been seen by Dr. Rivero and ultrasound of the axilla bilaterally up and done. The right axilla had no evident adenopathy. Left axilla has [address] Rivero will not be doing biopsy. Oncology will make arrangements for interventional radiology to perform biopsy from abdominal/pelvic lymph node and schedule patient for bone marrow biopsy. There was a consult added for infectious disease regarding neutropenic colitis. Flagyl and Levaquin were started yesterday. GI is not planning for any intervention at this point. Patient's diarrhea has resolved after her first dose of Imodium. She states she still has slight discomfort but no cramping and no diarrhea. She denies any nausea vomiting. She is currently on a full liquid diet to be advanced to regular. Repeat lab work reveals WBC 1.1, hemoglobin 9.5, platelet count 38. Sodium 139, potassium 4.2, chloride 110, CO2 25, BUN 15 and creatinine 1.57, INR 0.9. AST is 42, ALT 31, appointment possibly 240, LDH 428 lactic acid 0.8, uric acid 7.8. 09/01: The patient has one formed stool yesterday. Dr. Stout ordered stool cultu re and C. difficile toxin. He recommended continuing Zosyn and oral antibiotic at discharge. The patient states that she is feeling well today. She is scheduled for bone marrow biopsy and lymph node biopsy by interventional radiology. She is anxious to be discharged home. Oncology has been in contact with patient's daughter and there is talk about transferring to [facility]. Oncology will discuss this with the patient. Repeat lab work reveals WBC 1.1, hemoglobin 10.3, platelet count 38. Creatinine is 1.78. Consult added with nephrology 09/02: Patient is resting comfortably in bed. She is no longer going to be transferred to any other facilities. We'll discuss continuing workup an outpatient basis. Bone marrow biopsy was completed yesterday. Unable to do lymph node biopsy. Lab work shows to be BC 1.1, hemoglobin 10.3, platelets 38, potassium 4.1, BUN 16, creatinine 1.78 AST 53 ALT 40, alkaline phosphatase 277. Patient has been afebrile, pulse 92, respirations 16, blood pressure 130/64, 92% on room air 09/03: Patient is resting in bed. She still had episodes of diarrhea. She is able to tolerate advancing her diet. Oncology recommended that she stays over the weekend. Plan for possible colonoscopy on Thursday. Patient remained afebrile, pulse 75, respirations 16, blood pressure 114/64, 91% on room air. 09/04: Oncology has coordinated plan for transfer to [facility] under the care of Dr. Glenn Coon and Dr. Addison for higher level of care for lymph biopsy and Colonoscopy. Dr Foster is requesting physician to physician contact. Repeat lab work reveals WBC is 0.9, hemoglobin 9.3 and platelet count is not available at this time. BUN 11 and creatinine 1.55. Total bilirubin 0.3, AST 39, ALT 25, alkaline phosphatase 186. Dr. Stout has changed antibiotics to Rocephin and Flagyl. Renal ultrasound showing no hydronephrosis bilaterally. Patient states she feels uncomfortable this morning feels warm. specialist managers has been contacted and will make arrangements to complete transferred to [place]. Assessment and plan 1. Abdominal pain and diarrhea of unclear etiology, possible colitis. 2. Acute kidney injury. 3. Retroperitoneal adenopathy, pulmonary nodules and splenomegaly, rule out non-Hodgkin's lymphoma, MALT etc. Status post bone marrow biopsy, report pending. 4. Bicytopenia with leukopenia and thrombocytopenia. 5. History of common variable immune deficiency under the care of Dr. Cardona [facility]. Patient is on Hizentra weekly. 6. Generalized anxiety disorder. 7. Chronic kidney disease stage III. 8. COVID-19 infection not present. Discharge plan: Home Impression and plan of care have been directed as dictated by the signing physician. Lorna Machado nurse practitioner acting as scribe for signing physician. Patient Condition at Discharge: Fair Plan - Discharge Summary Discharge Rx Participant: Yes New Discharge Prescriptions: No Action Pregabalin [Lyrica] 100 mg PO DAILY hydrOXYzine HCL [Atarax] 75 mg PO TID PRN PRN Reason: Allergy Symptoms Citalopram Hydrobromide [CeleXA] 40 mg PO HS ALPRAZolam [Xanax] 1 mg PO HS traMADol HCL 50 mg PO TID PRN PRN Reason: Pain Discharge Medication List ALPRAZolam [Xanax] 1 mg PO HS 08/29/19 [History] Citalopram Hydrobromide [CeleXA] 40 mg PO HS 08/29/19 [History] Pregabalin [Lyrica] 100 mg PO DAILY 08/29/19 [History] hydrOXYzine HCL [Atarax] 75 mg PO TID PRN 08/29/19 [History] traMADol HCL 50 mg PO TID PRN 08/29/19 [History] Follow up Appointment(s)/Referral(s): Piotr Figueroa DO [Primary Care Provider] - 1-2 days
[2019-09-05] MEDS: PREGABALIN 100 MG CAP PO SCH (08:18)
[2019-09-05] MEDS: ALLOPURINOL 300 MG TAB PO SCH (08:18)
[2019-09-05] MEDS: ACYCLOVIR 800 MG TAB PO SCH (08:18)
[2019-09-05] MEDS ORDERED: POTASSIUM CHLORIDE ER 20 MEQ TAB.ER PO STA (08:58)
--- NOTE | 2019-09-05 08:59 | P.PN ---
Subjective Patient is seen in follow-up for acute kidney injury. Renal function fairly stable. Diarrhea improved. She receiving IV fluids. Good urine output. No vomiting. Vital signs are stable. General: The patient appeared well nourished and normally developed. HEENT: Head exam is unremarkable. Neck is without jugular venous distension. LUNGS: Breath sounds decreased. HEART: Rate and Rhythm are regular. ABDOMEN: Soft, nontender. EXTREMITITES: No clubbing, cyanosis, or edema. Objective - Vital Signs Vital signs: Vital Signs Temp 98.1 F 09/05/19 05:00 Pulse 66 09/05/19 05:00 Resp 16 09/05/19 05:00 BP 159/71 09/05/19 05:00 Pulse Ox 95 09/05/19 05:00 Intake & Output 09/04/19 09/05/19 09/05/19 18:59 06:59 18:59 Intake Total 3880 2180 Output Total 2 Balance 3878 2180 Intake: Intake, IV Titration 1200 1000 Amount Sodium Chloride 0.9% 1, 1200 900 000 ml @ 75 mls/hr IV . [id number] HELLEN Rx#:[id number] metroNIDAZOLE-NS PMX 500 100 mg In Saline 1 100ml.bag @ 100 mls/hr IVPB Q8HR HELLEN Rx#:[id number] Oral 2680 1180 Output: Urine 2 Other: Voiding Method Toilet Toilet # Voids 1 2 # Bowel Movements 1 1 - Labs CBC & Chem 7: 09/05/19 06:03 09/05/19 06:03 Labs: Abnormal Lab Results - Last 24 Hours (Table) 09/04/19 09/05/19 09/05/19 Range/Units 06:24 06:03 06:03 WBC 1.0 L* 0.9 L* (3.8-10.6) k/uL RBC 3.47 L 3.38 L (3.80-5.40) m/uL Hgb 9.4 L 9.3 L (11.4-16.0) gm/dL Hct 30.0 L 29.2 L (34.0-46.0) % Plt Count 47 L 42 L (150-450) k/uL Neutrophils # 0.5 L (1.3-7.7) k/uL Lymphocytes # 0.3 L (1.0-4.8) k/uL Chloride 111 H (98-107) mmol/L Creatinine 1.55 H (0.52-1.04) mg/dL Calcium 7.9 L (8.4-10.2) mg/dL AST 39 H (14-36) U/L Alkaline Phosphatase 186 H (38-126) U/L Total Protein 5.1 L (6.3-8.2) g/dL Albumin 2.8 L (3.5-5.0) g/dL Microbiology - Last 24 Hours (Table) 09/03/19 12:18 Blood Culture - Preliminary Blood No Growth after 24 hours 09/02/19 07:11 Stool Culture - Preliminary Stool Assessment and Plan Plan: assessment: 1. Acute kidney injury mostly prerenal secondary to intravascular volume depletion from diarrhea. Renal function slowly improving. Creatinine 1.55 today. UA benign. No evidence of hydronephrosis and kidney ultrasound. 2. Chronic kidney disease stage III with baseline creatinine near 1.3 secondary to nephrosclerosis. 3. History of common variable immunodeficiency. Plan for transfer to [facility] for immunology evaluation. 4. Abdominal pain and diarrhea possibly colitis. Seen by GI. Better. 5. Pulmonary nodules with retroperitoneal adenopathy. Oncology following. Concern for underlying lymphoma. Lymph node biopsy as well as bone marrow biopsy pending. Plan: Maintain normal saline at 75 mL an hour. Replace potassium. Plan for transfer to [facility] today.
[2019-09-05] MEDS ORDERED: NON FORMULARY DRUG SQ ONE (11:15)
--- NOTE | 2019-09-05 11:16 | US ---
EXAMINATION TYPE: US venous doppler duplex LE DATE OF EXAM: 09/05/2019 10:28 AM COMPARISON: NONE CLINICAL HISTORY: LE swelling, R > L. Edema SIDE PERFORMED: Bilateral TECHNIQUE: The lower extremity deep venous system is examined utilizing real time linear array sonog eula with graded compression, doppler sonography and color-flow sonography. VESSELS IMAGED: External Iliac Vein (EIV) Common Femoral Vein Deep Femoral Vein Greater Saphenous Vein * Femoral Vein Popliteal Vein Small Saphenous Vein * Proximal Calf Veins (* superficial vessels) Right Leg: Negative for DVT Left Leg: Negative for DVT IMPRESSION: 1. No diagnostic evidence of DVT as visualized.
[2019-09-05] MEDS ORDERED: [UNRECOGNIZED DRUG - OTHER] SQ ONE (12:00)
[2019-09-05] MEDS: traMADol 50 MG TAB PO PRN (12:16)
[2019-09-05 12:59] VITALS: BP 160/80; PULSE 54; TEMP 97.6
[2019-09-05] MEDS: hydrOXYzine HCL 25 MG TAB PO PRN (13:51)
--- NOTE | 2019-09-05 23:05 | PN ---
PROGRESS NOTE DATE OF DICTATION: 09/05/2019 This patient is a 68-year-old pleasant white female seen on followup today. Her diarrhea is much improved. She had about 3 bowel movements yesterday and had only one bowel movement today, has been taking Imodium as needed. She reports no abdominal pain. No nausea, vomiting. She is being transferred to [facility] today. PHYSICAL EXAMINATION: She appears comfortable. No apparent distress. Vital signs are stable. Blood pressure 159/71, pulse rate 66, temperature 98.1. HEENT examination unremarkable. Conjunctivae pink. Sclerae anicteric. Oral cavity no lesions. NECK: No JVD or lymph node enlargement. CHEST: Clear to auscultation. HEART: Regular rate and rhythm. ABDOMEN: Soft. Bowel sounds are positive. Non-tender. EXTREMITIES: No pedal edema. NEUROLOGIC: Alert and oriented x3. No focal deficits. LABS: No labs available from today. IMPRESSION: 1. Chronic diarrhea for the last one month duration; as been having bowel movements anywhere from 5 to 6 per day which are loose to watery in consistency. Stool studies have been negative. She was started on Imodium as well as Questran and the diarrhea has significantly improved. 2. Neutropenia. Hematology following the patient closely. Status post bone marrow biopsy 3 days ago, results of which are pending at the time of this dictation. 3. Immunoglobulin deficiency. 4. Abdominal pain, improving. RECOMMENDATIONS: 1. Continue with symptomatic and supportive care. 2. Colonoscopy was contemplated. However, because of ongoing severe pancytopenia, especially neutropenia, it has not been done so far. The patient is being transferred to [facility] for tertiary care. Will defer further investigations to them. Thank you for this consultation. MMODL / IJN: [id number] /
--- NOTE | 2019-09-05 23:53 | P.PN ---
Subjective Progress Note Date: 09/05/19 Principal diagnosis: Pancytopenia, Persistent diarrhea with neutropenia, Adenopathy persistent Patient seen in follow-up this am with Dr. Mitchell. Patient was not able to tolerate jello without loose stools. She is planning for transfer to [facility] this am. Objective - Vital Signs Vital signs: Vital Signs Temp 97.6 F 09/05/19 12:00 Pulse 54 L 09/05/19 12:00 Resp 16 09/05/19 12:00 BP 160/80 09/05/19 12:00 Pulse Ox 95 09/05/19 12:00 Intake & Output 09/05/19 09/05/19 09/06/19 06:59 18:59 06:59 Intake Total 2180 Balance 2180 Intake: Intake, IV Titration 1000 Amount Sodium Chloride 0.9% 1, 900 000 ml @ 75 mls/hr IV . [id number] [facility]LLEN Rx#:[id number] metroNIDAZOLE-NS PMX 500 100 mg In Saline 1 100ml.bag @ 100 mls/hr IVPB Q8HR [facility]LLEN Rx#:[id number] Oral 1180 Other: Voiding Method Toilet Toilet # Voids 2 3 # Bowel Movements 1 - Exam - Constitutional General appearance: cooperative, no acute distress - EENT Herpetic lesions on lip and open sores in nostrils Eyes: EOMI, poor dentition ENT: NA/AT, normal oropharynx -Lymphadenopathy: - on Yesterdays exam palpable in the left axilla, today harder to locate and palpate. Question inflammation versus positioning. - Respiratory Respiratory: bilateral: CTA, diminished (no increased effort) - Cardiovascular Rhythm: regular Heart sounds: normal: S1, S2 leg Peripheral Edema: bilateral: Other (Chronic bilateral edema) - Gastrointestinal Firm, bloated and distended General gastrointestinal: distended - Integumentary Integumentary: pale - Neurologic non-focal - Musculoskeletal Musculoskeletal: generalized weakness, strength equal bilaterally - Psychiatric Psychiatric: A&O x's 3, appropriate affect, intact judgment & insight - Labs CBC & Chem 7: 09/05/19 06:03 09/05/19 06:03 Labs: Abnormal Lab Results - Last 24 Hours (Table) 09/05/19 09/05/19 Range/Units 06:03 06:03 WBC 0.9 L* (3.8-10.6) k/uL RBC 3.38 L (3.80-5.40) m/uL Hgb 9.3 L (11.4-16.0) gm/dL Hct 29.2 L (34.0-46.0) % Plt Count 42 L (150-450) k/uL Chloride 111 H (98-107) mmol/L Creatinine 1.55 H (0.52-1.04) mg/dL Calcium 7.9 L (8.4-10.2) mg/dL AST 39 H (14-36) U/L Alkaline Phosphatase 186 H (38-126) U/L Total Protein 5.1 L (6.3-8.2) g/dL Albumin 2.8 L (3.5-5.0) g/dL Microbiology - Last 24 Hours (Table) 09/03/19 12:18 Blood Culture - Preliminary Blood No Growth after 48 hours 09/02/19 07:11 Stool Culture - Final Stool Assessment and Plan (1) Pulmonary nodules Status: Acute Code(s): R91.8 - OTHER NONSPECIFIC ABNORMAL FINDING OF LUNG FIELD SNOMED Code(s): 559753648 (2) Pancytopenia Status: Acute Code(s): D61.818 - OTHER PANCYTOPENIA SNOMED Code(s): 46176 4005 (3) Hypogammaglobulinaemia, unspecified Status: Acute Code(s): D80.1 - NONFAMILIAL HYPOGAMMAGLOBULINEMIA SNOMED Code(s): 425522891 (4) Diarrhea Status: Acute Code(s): R19.7 - DIARRHEA, UNSPECIFIED SNOMED Code(s): 76651616 (5) Splenomegaly Status: Acute Code(s): R16.1 - SPLENOMEGALY, NOT ELSEWHERE CLASSIFIED SNOMED Code(s): 85451903 Plan: Assessment and Recommendation Pancytopenia: - Normocytic anemia: Iron deficiency - Unknown why Iron Deficient. No plan for EGD or Colonoscopy - THrombocytopenia: Less than 50K no NSAIDS, or Aspirin, or VTE prophylaxis with less than 50K - Lymphocytopenia and Neutropenia: Will need to confirm diagnosis prior to initiation growth factor in case picture is of acute leukemia (less likely) - FLow cytometry on Lymph node biopsy and on peripheral blood - Pancytopenia work-up reviewed. No apparent Etiology of other causes found - Bone Marrow Biopsy with Irradiated Platelet transfusion planned today - Monitor with continued antibiotics and await recovery or bone m - arrow results Diffuse Adenopathy: - This has been present on prior imaging from 2013, although has increased in size and now within retroperitoneum - With the picture of hypogammaglobulemia, cytopenias, and adenopathy must consider malignancy, more specifically a lymphoma/leukemia (chronic) etiology - Uric acid and LDH - Uric Acid increased 8 - General surgery evaluated for excisional lymph node biopsy although U/S shows LN in axilla is 1.2cm very small - Unable to obtain clear access for LN biopsy Increased Uric Acid: Improving - Allopurinol initiated, Continue - Recheck Uric acid and renal function today Persistent Diarrhea -progressing - Stool studies negative, CONCERN for neutropenia colitis - Hold at clear liquids for watery stool todaySuzanna - Recommend antibiotic - will continue Flagyl/Zosyn - Recheck stool studies, if increased cramping or diarrhea returns please make NPO Abdominal Pain and Cramping -Resolved - Abdomen increased firm and distended today - No rebound tenderness - Hyperactive bowel sounds present Bilateral Pulmonary Nodules - Have been present since 2013 never have they been biopsied - They appear to have had mild growth, these nodules maybe consistent with her known common variable immunodefiency Hypogammaglobulemia - Follows [facility] electronic court recorder Dr. Cardona - Common Variable immune deficiency - Weekly IVIG injections - IgG greater than 900, no indication for IVIG Herpes Zoster (HSV1/HSV2) - Continue on Acyclovir and continue on prophylaxis while neutropenic. Acute Renal Insufficeiny - Monitor Increased uric acid - Renal Utrasound for obstructive neuropathy - With diffuse abdominal adenopathy - Nephrology following - It does appear she may have some baseline chronic renal disease, although no definitive diagnosis - Continue IV hydration Plan: - Discussed with accepting admissions team at [facility] for tertiary care related to LN biopsy need and Colonoscopy - COntinue with NPO/CLear liquids for neutropenic enteritis concern - Discussed in detail with primary team - LE doppler for RLE Swelling negative Will follow-up after transfer. Physician Attest: I have completed the full history and physical and agree with above dictation, dictated as a scribe
--- NOTE | 2019-09-07 14:59 | CT ---
EXAMINATION TYPE: CT biopsy bone marrow, aborted CT guided aspiration DATE OF EXAM: 09/02/2019 HISTORY: Retroperitoneal adenopathy COMPARISON: CT dated 08/29/2019 CT through the abdomen for planning. No suitable path to the retroperitoneal adenopathy is identified . Retroperitoneal biopsy was aborted. Bone marrow biopsy: Maximal barrier technique was utilized, hand hygiene obtained with soap and water . Sedation provided by the anesthesiology service. The skin overlying a suitable path to the posteri or iliac bone on the right was localized using CT and the overlying skin was prepped and draped. Lid ocaine used for local anesthesia. A skin myesha made with a scalpel. Using CT guidance, access was ga ined to the bone with a 9-gauge core needle. Marrow aspiration was performed of approximately 15 cc. Core specimen submitted to pathology. Following the procedure no immediate complications. The rk ent is discharged in stable condition in the care of anesthesia. Hemostasis achieved. IMPRESSION: SUCCESSFUL CT GUIDED BONE MARROW ASPIRATION AND CORE BIOPSY. PATHOLOGY PENDING. THIS PROCEDURE WAS PERFORMED BY THE UNDERSIGNED.
== END 2019-09-05 14:46 | disposition short-term general hospital (02) | DRG 392 ==
LOC: EC 18:52 → OBSVTOIN 21:26 → 5NMEDONC 21:26
PROVIDERS: ADMIT Internal Medicine Geriatric Medicine; ATTEND Internal Medicine Geriatric Medicine
PROC: 07DR3ZX Extraction of Iliac Bone Marrow, Percutaneous Approach, Diagnostic (ICD-10-PCS; principal; 2019-09-02 08:45)
DX: K52.89 Other specified noninfective gastroenteritis and colitis (principal); B37.0 Candidal stomatitis; D61.818 Other pancytopenia; D83.9 Common variable immunodeficiency, unspecified; K82.1 Hydrops of gallbladder; N17.9 Acute kidney failure, unspecified; C85.90 Non-Hodgkin lymphoma, unspecified, unspecified site; K76.6 Portal hypertension; B00.89 Other herpesviral infection; I27.21 Secondary pulmonary arterial hypertension; N18.3 Chronic kidney disease, stage 3 (moderate); E87.6 Hypokalemia; F32.9 Major depressive disorder, single episode, unspecified; F41.1 Generalized anxiety disorder; I12.9 Hypertensive chronic kidney disease with stage 1 through stage 4 chronic kidney disease, or unspecified chronic kidney disease; I89.0 Lymphedema, not elsewhere classified; E86.9 Volume depletion, unspecified; J30.9 Allergic rhinitis, unspecified; K21.9 Gastro-esophageal reflux disease without esophagitis; R16.1 Splenomegaly, not elsewhere classified; Z11.59 Encounter for screening for other viral diseases; R91.8 Other nonspecific abnormal finding of lung field; L30.8 Other specified dermatitis; I71.9 Aortic aneurysm of unspecified site, without rupture; N13.9 Obstructive and reflux uropathy, unspecified; Z79.899 Other long term (current) drug therapy; Z87.891 Personal history of nicotine dependence; Z90.710 Acquired absence of both cervix and uterus; Z86.14 Personal history of Methicillin resistant Staphylococcus aureus infection; Z68.29 Body mass index [BMI] 29.0-29.9, adult; Z82.3 Family history of stroke; Z82.69 Family history of other diseases of the musculoskeletal system and connective tissue
CPT/HCPCS: 36415; 38222; 71045; 71250; 74176; 76705; 76770; 77012; 80053; 81003; 82105; 82150; 82607; 82668; 82728; 82746; 82784; 83010; 83540; 83550; 83605; 83615; 83630; 83690; 83735; 83883; 83921; 84100; 84165; 84550; 85025; 85027; 85045; 85610; 85652; 85730; 86038; 86334; 86431; 86850; 86900; 86901; 87040; 87045; 87046; 93970; 96360; 96361; 99285

== ENCOUNTER → 2021-08-07 | Outpatient (CLI) | payer MEDICARE ==
[2021-08-08 03:29] LABS: African American GFR (CKD) 28.8 (60.0-200.0); Albumin 3.5 g/dL (3.8-4.9); Albumin/Globulin Ratio 1.34 (1.60-3.17); Anion Gap 8.9 mmol/L (10.00-18.00); BUN/Creat Ratio 13.43 Ratio (12.00-20.00); Calcium 9.6 mg/dL (8.7-10.3); Carbon Dioxide 20.8 mmol/L (20.0-27.5); Globulin 2.6 g/dL (1.6-3.3); Non-African American GFR(CKD) 24.9 (60.0-200.0); Potassium 4.6 mmol/L (3.5-5.5); Total Bilirubin 0.4 mg/dL (0.30-1.20); Total Protein 6.1 g/dL (6.2-8.2)
== END | disposition home or self-care (01) ==
LOC: LABWHC1 14:18
PROVIDERS: ATTEND Internal Medicine
DX: D83.9 Common variable immunodeficiency, unspecified (principal)
CPT/HCPCS: 36415; 80053

== ENCOUNTER 2021-08-29 14:41 | Observation (INO) | payer MEDICARE ==
--- NOTE | 2021-08-29 21:41 | ED ---
Abdominal Pain HPI - General Chief Complaint: Abdominal Pain Stated Complaint: Abd.Pain, [facility] sent pt in Time Seen by Provider: 08/29/21 21:07 Source: patient Mode of arrival: ambulatory Limitations: no limitations - History of Present Illness Initial Comments: This patient is a 70-year-old woman with history of CVA ID, who presents with complaint of abdominal pain, increased abdominal distention, and decreased urination. The patient has a difficult time pinning down when exactly the symptoms had started. She does indicate some distention going back probably months to years as well as edema for that amount of time. She states that things seemed to have worsened recently and over the past 2-3 days she feels like she is urinating less than usual. She spoke with her physician who operates out of [facility] and he was going to set her up with an MRI study, but the patient felt she could not wait that long to be seen. MD Complaint: abdominal pain -: month(s) Location: diffuse Radiation: none Migration to: periumbilical Severity: mild Quality: aching, fullness Consistency: constant Improves With: nothing Worsens With: nothing Associated Symptoms: other (Decreased urination) - Related Data Home Medications Medication Instructions Recorded Confirmed ALPRAZolam [Xanax] 1 mg PO HS 08/29/19 08/29/21 Citalopram Hydrobromide [CeleXA] 40 mg PO HS 08/29/19 08/29/21 hydrOXYzine HCL [Atarax] 25 - 75 mg PO Q6H PRN 08/29/19 08/29/21 traMADol HCL 50 mg PO BID PRN 08/29/19 08/29/21 Dicyclomine HCl 10 mg PO TID PRN 08/29/21 08/29/21 Ergocalciferol (Vitamin D2) 1,250 mcg PO WE 08/29/21 08/29/21 [Drisdol (50,000 Iu)] Famotidine 20 mg PO DAILY 08/29/21 08/29/21 Ferrous Sulfate [Feosol] 325 mg PO DAILY 08/29/21 08/29/21 Hizentra 20% Soln 50 ml SQ TH 08/29/21 08/29/21 aMILoride HCL 5 mg PO DAILY 08/29/21 08/29/21 Previous Rx's Medication Instructions Recorded Cephalexin [Keflex] 500 mg PO Q6HR #28 cap 08/29/21 Furosemide [Lasix] 40 mg PO BID #60 tablet 08/30/21 Allergies Allergy/AdvReac Type Severity Reaction Status Date / Time No Known Allergies Allergy Verified 08/29/21 21:56 Review of Systems ROS Statement: Those systems with pertinent positive or pertinent negative responses have been documented in the HPI. ROS Other: All systems not noted in ROS Statement are negative. Constitutional: Denies: fever, chills, weakness Respiratory: Denies: cough, dyspnea Cardiovascular: Reports: edema (Chronic long-standing). Denies: chest pain, palpitations, orthopnea Gastrointestinal: Reports: as per HPI, abdominal pain. Denies: nausea, vomiting, diarrhea, constipation, melena, hematochezia Genitourinary: Reports: other (Decreased urine output). 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 Severe recalcitrant dermatitis, Allergic rhinitis. diffuse lymphadenopathy History of Any Multi-Drug Resistant Organisms: MRSA Date of last positivie culture/infection: 08/14/2009 MDRO Source:: Open wound. Past Surgical History: Hysterectomy Additional Past Surgical History / Comment(s): common variable immune de ficicency. Additional Past Anesthesia/Blood Transfusion Reaction / Comment(s): Slow to wake up. Past Psychological History: Anxiety, Depression Past Alcohol Use History: None Reported Past Drug Use History: None Reported - Past Family History Father Additional Family Medical History / Comment(s): Patient's father at age 92 from CVA. He also had a degenerative muscle disorder. Mother Additional Family Medical History / Comment(s): Mother is alive at age 90 with no major medical problems. Brother(s) Additional Family Medical History / Comment(s): Patient is a total of 4 siblings with no major medical problems. Patient has one daughter with no major medical problems. General Exam Limitations: no limitations General appearance: alert, in no apparent distress Head exam: Present: atraumatic, normocephalic Eye exam: Present: normal appearance. Absent: scleral icterus, conjunctival injection ENT exam: Present: normal oropharynx Respiratory exam: Present: normal lung sounds bilaterally. Absent: respiratory distress, wheezes, rales, rhonchi, stridor Cardiovascular Exam: Present: regular rate, normal rhythm, normal heart sounds. Absent: systolic murmur, diastolic murmur, rubs, gallop GI/Abdominal exam: Present: soft, distended, normal bowel sounds. Absent: tenderness, guarding, rebound, rigid, mass, hernia Extremities exam: Present: normal capillary refill, pedal edema. Absent: tenderness, calf tenderness Back exam: Present: normal inspection. Absent: CVA tenderness (R), CVA tenderness (L) Neurological exam: Present: alert Skin exam: Present: warm, dry, intact, normal color. Absent: rash Course Vital Signs 08/29/21 08/29/21 08/30/21 14:56 22:00 00:04 Temperature 98.2 F 98.0 F Pulse Rate 96 82 Pulse Rate [ 85 Pulse Oximetery ] Respiratory 18 18 16 Rate Blood Pressure 134/82 143/70 Blood Pressure 134/79 [Right Arm] O2 Sat by Pulse 97 96 96 Oximetry Medical Decision Making - Medical Decision Making This patient is a 70-year-old woman with history of see VID, who presents with abdominal pain and distention. The workup does reveal marked ascites. The patient also found to have some white blood cells in the urine. She is not having any urinary tract infection type symptoms, but will treat. The patient declined to have IV dose of antibiotics and wants to go home to arrange parace ntesis, rather than being admitted in the hospital for antibiotics and paracentesis. She does have close follow-up already established. We discussed return parameters as well as the appropriate further care and follow-up. She understands she must return immediately if there is any change in her condition whatsoever. - Lab Data Result diagrams: 08/30/21 10:34 08/30/21 10:34 Lab Results 08/29/21 08/29/21 08/29/21 Range/Units 22:00 22:00 22:00 WBC 2.0 L (3.8-10.6) k/uL RBC 4.22 (3.80-5.40) m/uL Hgb 11.9 (11.4-16.0) gm/dL Hct 36.9 (34.0-46.0) % MCV 87.4 (80.0-100.0) fL MCH 28.1 (25.0-35.0) pg MCHC 32.2 (31.0-37.0) g/dL RDW 15.1 (11.5-15.5) % Plt Count 47 L (150-450) k/uL MPV 8.1 Neutrophils % 54 % Lymphocytes % 25 % Monocytes % 10 % Eosinophils % 5 % Basophils % 1 % Neutrophils # 1.1 L (1.3-7.7) k/uL Lymphocytes # 0.5 L (1.0-4.8) k/uL Monocytes # 0.2 (0-1.0) k/uL Eosinophils # 0.1 (0-0.7) k/uL Basophils # 0.0 (0-0.2) k/uL Manual Slide Review Performed Hypochromasia Slight PT (9.0-12.0) sec INR (<1.2) APTT (22.0-30.0) sec Sodium 137 (137-145) mmol/L Potassium 4.7 (3.5-5.1) mmol/L Chloride 110 H (98-107) mmol/L Carbon Dioxide 22 (22-30) mmol/L Anion Gap 5 mmol/L BUN 31 H (7-17) mg/dL Creatinine 1.98 H (0.52-1.04) mg/dL Est GFR (CKD-EPI)AfAm 29 (>60 ml/min/1.73 sqM) Est GFR (CKD-EPI)NonAf 26 (>60 ml/min/1.73 sqM) Glucose 115 H (74-99) mg/dL Calcium 9.8 (8.4-10.2) mg/dL Total Bilirubin 0.8 (0.2-1.3) mg/dL AST 52 H (14-36) U/L ALT 33 (4-34) U/L Alkaline Phosphatase 274 H (38-126) U/L Troponin I (0.000-0.034) ng/mL NT-Pro-B Natriuret Pep pg/mL Total Protein 6.3 (6.3-8.2) g/dL Albumin 3.6 (3.5-5.0) g/dL Amylase 73 (30-110) U/L Lipase 369 H (23-300) U/L Urine Color Yellow Urine Appearance Cloudy H (Clear) Urine pH 5.5 (5.0-8.0) Ur Specific Half Way 1.014 (1.001-1.035) Urine Protein Trace H (Negative) Urine Glucose (UA) Negative (Negative) Urine Ketones Negative (Negative) Urine Blood Trace H (Negative) Urine Nitrite Positive H (Negative) Urine Bilirubin Negative (Negative) Urine Urobilinogen <2.0 (<2.0) mg/dL Ur Leukocyte Esterase Large H (Negative) Urine RBC 9 H (0-5) /hpf Urine WBC 49 H (0-5) /hpf Urine WBC Clumps Occasional H (None) /hpf Ur Squamous Epith Cells 5 H (0-4) /hpf Urine Bacteria Many H (None) /hpf Hyaline Casts 30 H (0-2) /lpf Urine Mucus Rare H (None) /hpf 08/29/21 08/29/21 08/29/21 Range/Units 22:00 22:00 22:00 WBC (3.8-10.6) k/uL RBC (3.80-5.40) m/uL Hgb (11.4-16.0) gm/dL Hct (34.0-46.0) % MCV (80.0-100.0) fL MCH (25.0-35.0) pg MCHC (31.0-37.0) g/dL RDW (11.5-15.5) % Plt Count (150-450) k/uL MPV Neutrophils % % Lymphocytes % % Monocytes % % Eosinophils % % Basophils % % Neutrophils # (1.3-7.7) k/uL Lymphocytes # (1.0-4.8) k/uL Monocytes # (0-1.0) k/uL Eosinophils # (0-0.7) k/uL Basophils # (0-0.2) k/uL Manual Slide Review Hypochromasia PT 10.9 (9.0-12.0) sec INR 1.0 (<1.2) APTT 23.8 (22.0-30.0) sec Sodium (137-145) mmol/L Potassium (3.5-5.1) mmol/L Chloride (98-107) mmol/L Carbon Dioxide (22-30) mmol/L Anion Gap mmol/L BUN (7-17) mg/dL Creatinine (0.52-1.04) mg/dL Est GFR (CKD-EPI)AfAm (>60 ml/min/1.73 sqM) Est GFR (CKD-EPI)NonAf (>60 ml/min/1.73 sqM) Glucose (74-99) mg/dL Calcium (8.4-10.2) mg/dL Total Bilirubin (0.2-1.3) mg/dL AST (14-36) U/L ALT (4-34) U/L Alkaline Phosphatase (38-126) U/L Troponin I <0.012 (0.000-0.034) ng/mL NT-Pro-B Natriuret Pep 629 pg/mL Total Protein (6.3-8.2) g/dL Albumin (3.5-5.0) g/dL Amylase (30-110) U/L Lipase (23-300) U/L Urine Color Urine Appearance (Clear) Urine pH (5.0-8.0) Ur Specific Half Way (1.001-1.035) Urine Protein (Negative) Urine Glucose (UA) (Negative) Urine Ketones (Negative) Urine Blood (Negative) Urine Nitrite (Negative) Urine Bilirubin (Negative) Urine Urobilinogen (<2.0) mg/dL Ur Leukocyte Esterase (Negative) Urine RBC (0-5) /hpf Urine WBC (0-5) /hpf Urine WBC Clumps (None) /hpf Ur Squamous Epith Cells (0-4) /hpf Urine Bacteria (None) /hpf Hyaline Casts (0-2) /lpf Urine Mucus (None) /hpf Disposition Clinical Impression: Abdominal pain, Ascites, Urinary tract infection Disposition: ADMITTED IP TO THIS HOSP Condition: Fair Is patient prescribed a controlled substance at d/c from ED?: No Time of Disposition: 23:25
[2021-08-29 22:26] LABS: Albumin 3.6 g/dL (3.5-5.0); Calcium 9.8 mg/dL (8.4-10.2); Potassium 4.7 mmol/L (3.5-5.1); Total Bilirubin 0.8 mg/dL (0.2-1.3); Total Protein 6.3 g/dL (6.3-8.2)
[2021-08-29 22:27] LABS: Appearance,Urine Cloudy (Clear); Bacteria,Urine Many /hpf; Bilirubin,Urine Negative (Negative); Blood,Urine Trace (Negative); Color,Urine Yellow; Glucose,Urine (UA) Negative (Negative); Hyaline Casts,Urine 30 /lpf (0-2); Ketones,Urine Negative (Negative); Leukocyte Esterase,Urine Large (Negative); Mucus,Urine Rare /hpf; Nitrite,Urine Positive (Negative); PH, Urine 5.5 (5.0-8.0); Protein,Urine Trace (Negative); RBC,Urine 9 /hpf (0-5); Specific Gravity,Urine 1.014 (1.001-1.035); Squamous Epithelial Cell,Urine 5 /hpf (0-4); Urobilinogen,Urine <2.0 mg/dL (<2.0); WBC,Urine 49 /hpf (0-5)
[2021-08-29 22:30] LABS: Basophils % (A) 1 %; Eosinophils # (A) 0.1 k/uL (0-0.7); Eosinophils % (A) 5 %; HCT 36.9 % (34.0-46.0); HGB 11.9 gm/dL (11.4-16.0); Hypochromasia Slight; Lymphocytes # (A) 0.5 k/uL (1.0-4.8); Lymphocytes % (A) 25 %; MCH 28.1 pg (25.0-35.0); MCHC 32.2 g/dL (31.0-37.0); MCV 87.4 fL (80.0-100.0); Mean Platelet Volume 8.1; Monocytes # (A) 0.2 k/uL (0-1.0); Monocytes % (A) 10 %; Neutrophils # (A) 1.1 k/uL (1.3-7.7); Neutrophils % (A) 54 %; RBC 4.22 m/uL (3.80-5.40); RDW 15.1 % (11.5-15.5)
[2021-08-29 22:42] LABS: Platelet Count 47 k/uL (150-450)
--- NOTE | 2021-08-29 23:03 | CT ---
EXAMINATION TYPE: CT abdomen pelvis wo con DATE OF EXAM: 08/29/2021 COMPARISON: 08/29/2019 HISTORY: abd pain, distention CT DLP: 634.3 mGycm Automated exposure control for dose reduction was used. Images obtained from the diaphragm to the floor of the pelvis with no contrast. There is some patchy atelectasis at the lung bases. Heart is top normal in size. There is small peric ardial effusion. No pleural fluid. There is massive abdominal ascites fluid. Spleen is markedly enlarged and measures 24 cm. The liver i s small and measures 13.5 cm and consistent with cirrhosis. The stomach is intact. No evidence of barney creatic mass. The bile ducts do not appear dilated. Gallbladder is somewhat contracted. There is no adrenal mass. Kidneys are small. No hydronephrosis. Right kidney measures 7.6 cm. Left ki dney measures 9.7 cm. No evidence of a renal mass. There are some retroperitoneal abdominal periaorti c lymph nodes that measure up to 1.5 cm. The bladder distends smoothly. There is a mild lumbar dextroscoliosis. There are spondylotic changes in the lumbar spine. No yahaira oniel fracture. The bony pelvis is intact. The hip joints are intact. There is subcutaneous edema arou nd the abdomen. No evidence of free air. No evidence of a bowel obstruction. IMPRESSION: There is massive abdominal ascites which is essentially new compared to old exam. There is massive sp lenomegaly similar to old exam. Small liver consistent with cirrhosis that has progressed compared to old exam. There is mild renal atrophy which has progressed compared to old exam. Subcutaneous edema appears new compared to old exam. There is retroperitoneal lymphadenopathy which appears improved com pared to old exam.
[2021-08-29] MEDS ORDERED: CEPHALEXIN 500 MG CAP PO STA (23:26)
[2021-08-29] MEDS ORDERED: ACETAMINOPHEN TAB 325 MG TAB PO PRN (23:34)
[2021-08-29] MEDS ORDERED: NALOXONE 0.4 MG/ML 1 ML VIAL IV PRN (23:34)
[2021-08-29 23:37] LABS: Partial Thromboplastin Time 23.8 sec (22.0-30.0); Prothrombin Time 10.9 sec (9.0-12.0)
[2021-08-30] MEDS: SODIUM CHLORIDE 0.9% 1,000 ML IV SCH ×2 (02:24→23:03)
[2021-08-30] MEDS ORDERED: DICYCLOMINE 10 MG CAP PO PRN (09:34)
[2021-08-30] MEDS ORDERED: traMADol 50 MG TAB PO PRN (09:34)
--- NOTE | 2021-08-30 10:59 | P.HPIM ---
History of Present Illness 70-year-old the pleasant female came in with complaints of abdominal distention and decreased to 80 urination. Patient is also found to have significant ascites. Never an alcoholic was never diagnosed with cirrhosis patient had a CT of the abdomen which showed significant splenomegaly along with cirrhosis and ascites. She does have history of our, minimal immunodeficiency. Patient denied any significant pain neck supple discomfort secondary to distention. Patient does have bilateral lower extremity edema. In the past patient had minimal ascites at that time patient was evaluated for some malignancy because of the pulmonary nodules and patient the was told that she doesn't have any malignancy records are not available this evaluation was done at [facility]. Patient follows up for TIA and was to [place] for her, minimal immunodeficiency and gets seen IV will obtain transfusions here. Patient does have chronic kidney disease with baseline creatinine of around 1.9. REVIEW OF SYSTEMS: CONSTITUTIONAL: No fever, no malaise, no fatigue. HEENT: No recent visual problems or hearing problems. Denied any sore throat. CARDIOVASCULAR: No chest pain, orthopnea, PND, no palpitations, no syncope. PULMONARY: No shortness of breath, no cough, no hemoptysis. GASTROINTESTINAL: As mentioned in HPI NEUROLOGICAL: No headaches, no weakness, no numbness. HEMATOLOGICAL: Denies any bleeding or petechiae. GENITOURINARY: Denies any burning micturition, frequency, or urgency. MUSCULOSKELETAL/RHEUMATOLOGICAL: Denies any joint pain, swelling, or any muscle pain. ENDOCRINE: Denies any polyuria or polydipsia. The rest of the 14-point review of systems is negative. PHYSICAL EXAMINATION: GENERAL: The patient is alert and oriented x3, not in any acute distress. Well developed, well nourished. HEENT: Pupils are round and equally reacting to light. EOMI. No scleral icterus. No conjunctival pallor. Normocephalic, atraumatic. No pharyngeal erythema. No thyromegaly. CARDIOVASCULAR: S1 and S2 present. No murmurs, rubs, or gallops. PULMONARY: Chest is clear to auscultation, no wheezing or crackles. ABDOMEN: Distended ascites MUSCULOSKELETAL: No joint swelling or deformity. EXTREMITIES: No cyanosis, clubbing, bilatral lower extremity pedal edema NEUROLOGICAL: Gross neurological examination did not reveal any focal deficits. SKIN: No rashes. Assessment and plan -Cirrhosis: Etiology is not clear at this time patient does have significant ascites patient will undergo therapy can diagnostic paracentesis. Patient is not on alcoholic hepatitis panel in 2019 was negative patient will need further workup as an outpatient for etiology of cirrhosis. Patient will need diuretics upon discharge patient is unable a right will need additionally Lasix. Patient urine output is fair at this time. 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 Severe recalcitrant dermatitis, Allergic rhinitis. diffuse lymphadenopathy History of Any Multi-Drug Resistant Organisms: MRSA Date of last positivie culture/infection: 08/14/2009 MDRO Source:: Open wound. Past Surgical History: Hysterectomy Additional Past Surgical History / Comment(s): common variable immune deficicency. Past Anesthesia/Blood Transfusion Reactions: No Reported Reaction Additional Past Anesthesia/Blood Transfusion Reaction / Comment(s): Slow to wake up. Past Psychological History: Anxiety, Depression Smoking Status: Never smoker Past Alcohol Use History: None Reported Additional Past Alcohol Use History / Comment(s): Patient was a smoker for a few years and quit 5 years ago. She denies any alcohol use, marijuana or illicit drug use. She is and lives at home with her . She retired in 2017 from [employer]. Past Drug Use History: None Reported - Past Family History Father Additional Family Medical History / Comment(s): Patient's father at age 92 from CVA. He also had a degenerative muscle disorder. Mother Additional Family Medical History / Comment(s): Mother is alive at age 90 with no major medical problems. Brother(s) Additional Family Medical History / Comment(s): Patient is a total of 4 siblings with no major medical problems. Patient has one daughter with no major medical problems. Medications and Allergies Home Medications Medication Instructions Recorded Confirmed Type ALPRAZolam [Xanax] 1 mg PO HS 08/29/19 08/29/21 History Citalopram Hydrobromide [CeleXA] 40 mg PO HS 08/29/19 08/29/21 History hydrOXYzine HCL [Atarax] 25 - 75 mg PO Q6H PRN 08/29/19 08/29/21 History traMADol HCL 50 mg PO BID PRN 08/29/19 08/29/21 History Cephalexin [Keflex] 500 mg PO Q6HR #28 cap 08/29/21 Rx Dicyclomine HCl 10 mg PO TID PRN 08/29/21 08/29/21 History Ergocalciferol (Vitamin D2) 1,250 mcg PO WE 08/29/21 08/29/21 History [Drisdol (50,000 Iu)] Famotidine 20 mg PO DAILY 08/29/21 08/29/21 History Ferrous Sulfate [Feosol] 325 mg PO DAILY 08/29/21 08/29/21 History Hizentra 20% Soln 50 ml SQ TH 08/29/21 08/29/21 History aMILoride HCL 5 mg PO DAILY 08/29/21 08/29/21 History Furosemide [Lasix] 40 mg PO BID #60 tablet 08/30/21 Rx Allergies Allergy/AdvReac Type Severity Reaction Status Date / Time No Known Allergies Allergy Verified 08/29/21 21:56 Physical Exam Vitals: Vital Signs Temp Pulse Pulse Resp BP BP Pulse Ox 08/30/21 07:00 98.1 F 84 17 117/66 93 L 08/30/21 02:00 98.0 F 85 16 134/79 96 08/30/21 00:04 98.0 F 85 16 134/79 96 08/29/21 22:00 82 18 143/70 96 08/29/21 14:56 98.2 F 96 18 134/82 97 Intake and Output 08/29/21 08/30/21 08/30/21 22:59 06:59 14:59 Intake Total 100 Balance 100 Intake: Intake, IV Titration 100 Amount Sodium Chloride 0.9% 1, 100 000 ml @ 20 mls/hr IV . Q24H [facility] Rx#:[id number] Other: # Voids 1 # Bowel Movements 0 Weight 69.4 kg Results CBC & Chem 7: 08/29/21 22:00 08/29/21 22:00 Labs: Abnormal Lab Results - Last 24 Hours (Table) 08/29/21 08/29/21 08/29/21 Range/Units 22:00 22:00 22:00 WBC 2.0 L (3.8-10.6) k/uL Plt Count 47 L (150-450) k/uL Neutrophils # 1.1 L (1.3-7.7) k/uL Lymphocytes # 0.5 L (1.0-4.8) k/uL Chloride 110 H (98-107) mmol/L BUN 31 H (7-17) mg/dL Creatinine 1.98 H (0.52-1.04) mg/dL Glucose 115 H (74-99) mg/dL AST 52 H (14-36) U/L Alkaline Phosphatase 274 H (38-126) U/L Lipase 369 H (23-300) U/L Urine Appearance Cloudy H (Clear) Urine Protein Trace H (Negative) Urine Blood Trace H (Negative) Urine Nitrite Positive H (Negative) Ur Leukocyte Esterase Large H (Negative) Urine RBC 9 H (0-5) /hpf Urine WBC 49 H (0-5) /hpf Urine WBC Clumps Occasional H (None) /hpf Ur Squamous Epith Cells 5 H (0-4) /hpf Urine Bacteria Many H (None) /hpf Hyaline Casts 30 H (0-2) /lpf Urine Mucus Rare H (None) /hpf Microbiology - Last 24 Hours (Table) 08/29/21 22:00 Urine Culture - Preliminary Urine,Voided Thrombosis Risk Factor Assmnt - Choose All That Apply Any of the Below Risk Factors Present?: No Each Risk Factor Represents 2 Points: Age 61-74 years Other congenital or acquired thrombophilia - If yes, enter type in comment: No Thrombosis Risk Factor Assessment Total Risk Factor Score: 2 Thrombosis Risk Factor Assessment Level: Low Risk
--- NOTE | 2021-08-30 11:00 | P.DS ---
Providers Date of admission: 08/29/21 23:34 Attending physician: Olman Barber Consults: 08/30/21 00:30 Consult Physician Routine Consulting Provider: Sparkle Brown Consult Reason/Comments: Severe ascites Do you want consulting provider notified?: Yes, Notify in am 08/30/21 09:22 Consult Physician Routine Consulting Provider: Farheen Washburn Consult Reason/Comments: CKD, GENO Nephritis vs other, CIVD Do you want consulting provider notified?: Yes Primary care physician: [facility] Course: Refer to my history of present illness for further details Patient Condition at Discharge: Fair Plan - Discharge Summary Discharge Rx Participant: No New Discharge Prescriptions: New Furosemide [Lasix] 40 mg PO BID #60 tablet Cephalexin [Keflex] 500 mg PO Q6HR #28 cap No Action hydrOXYzine HCL [Atarax] 25 - 75 mg PO Q6H PRN PRN Reason: ALLERGY/ITCHING Citalopram Hydrobromide [CeleXA] 40 mg PO HS ALPRAZolam [Xanax] 1 mg PO HS traMADol HCL 50 mg PO BID PRN PRN Reason: Pain Ergocalciferol (Vitamin D2) [Drisdol (50,000 Iu)] 1,250 mcg PO WE aMILoride HCL 5 mg PO DAILY Dicyclomine HCl 10 mg PO TID PRN PRN Reason: Gi Upset Hizentra 20% Soln 50 ml SQ TH Ferrous Sulfate [Feosol] 325 mg PO DAILY Famotidine 20 mg PO DAILY Discharge Medication List ALPRAZolam [Xanax] 1 mg PO HS 08/29/19 [History] Citalopram Hydrobromide [CeleXA] 40 mg PO HS 08/29/19 [History] hydrOXYzine HCL [Atarax] 25 - 75 mg PO Q6H PRN 08/29/19 [History] traMADol HCL 50 mg PO BID PRN 08/29/19 [History] Cephalexin [Keflex] 500 mg PO Q6HR #28 cap 08/29/21 [Rx] Dicyclomine HCl 10 mg PO TID PRN 08/29/21 [History] Ergocalciferol (Vitamin D2) [Drisdol (50,000 Iu)] 1,250 mcg PO WE 08/29/21 [History] Famotidine 20 mg PO DAILY 08/29/21 [History] Ferrous Sulfate [Feosol] 325 mg PO DAILY 08/29/21 [History] Hizentra 20% Soln 50 ml SQ TH 08/29/21 [History] aMILoride HCL 5 mg PO DAILY 08/29/21 [History] Furosemide [Lasix] 40 mg PO BID #60 tablet 08/30/21 [Rx] Follow up Appointment(s)/Referral(s): Piotr Figueroa DO [Primary Care Provider] - 3 Days Patient Instructions/Handouts: Urinary Tract Infection in Women (ED), Ascites (ED), Abdominal Pain (ED) Discharge Disposition: HOME SELF-CARE
[2021-08-30 11:12] LABS: Reticulocyte % 1.1 % (0.5-2.0)
[2021-08-30 11:14] LABS: Basophils % (A) 2 %; Eosinophils # (A) 0.1 k/uL (0-0.7); Eosinophils % (A) 6 %; HCT 35.9 % (34.0-46.0); HGB 11.7 gm/dL (11.4-16.0); Hypochromasia Slight; Lymphocytes # (A) 0.4 k/uL (1.0-4.8); Lymphocytes % (A) 19 %; MCH 28.4 pg (25.0-35.0); MCHC 32.6 g/dL (31.0-37.0); MCV 87.2 fL (80.0-100.0); Mean Platelet Volume 8.2; Monocytes # (A) 0.2 k/uL (0-1.0); Monocytes % (A) 10 %; Neutrophils # (A) 1.3 k/uL (1.3-7.7); Neutrophils % (A) 61 %; RBC 4.11 m/uL (3.80-5.40); RDW 14.9 % (11.5-15.5); WBC 2.1 k/uL (3.8-10.6)
[2021-08-30 11:17] LABS: Platelet Count 45 k/uL (150-450)
--- NOTE | 2021-08-30 11:17 | US ---
EXAMINATION TYPE: US kidneys/renal and bladder DATE OF EXAM: 08/30/2021 COMPARISON: CT 2021, US 2019 CLINICAL HISTORY: worsening kidney disease. Exam done portable EXAM MEASUREMENTS: Right Kidney: 8.2 x 4.1 x 5.1 cm Left Kidney: 9.2 x 3.7 x 4.3 cm Right Kidney: measures small in size, fullness of renal pelvis Left Kidney: No hydronephrosis or masses seen Bladder: not distended, images not included on exam Ascites seen in all 4 quadrants Spleen: enlarged at 25.5cm There is no evidence for hydronephrosis at this point in time. No nephrolithiasis is seen. No rikki s are identified. Kidneys show normal cortical medullary differentiation, cortical echogenicity appea rs increased. IMPRESSION: Ascites, findings consistent with medical renal disease. Splenomegaly. Limitations the exam.
[2021-08-30 11:27] LABS: ALT 32 U/L (4-34); AST 47 U/L (14-36); African American GFR (CKD) 28 (>60 ml/min/1.73 sqM); Albumin 3.6 g/dL (3.5-5.0); Albumin/Globulin Ratio 1.4; Alkaline Phosphatase 306 U/L (38-126); Anion Gap 6 mmol/L; Blood Urea Nitrogen 30 mg/dL (7-17); Calcium 9.6 mg/dL (8.4-10.2); Carbon Dioxide 21 mmol/L (22-30); Chloride 110 mmol/L (98-107); Globulin 2.6 g/dL; Glucose 99 mg/dL (74-99); LDH 451 U/L (313-618); Magnesium 1.8 mg/dL (1.6-2.3); Non-African American GFR(CKD) 25 (>60 ml/min/1.73 sqM); Phosphorus 2.9 mg/dL (2.5-4.5); Potassium 4.4 mmol/L (3.5-5.1); Sodium 137 mmol/L (137-145); Total Bilirubin 0.9 mg/dL (0.2-1.3); Total Protein 6.2 g/dL (6.3-8.2); Uric Acid 10.7 mg/dL (3.7-7.4)
[2021-08-30 11:43] LABS: Prothrombin Time 10.9 sec (9.0-12.0)
--- NOTE | 2021-08-30 12:03 | P.NPCON ---
History of Present Illness - Reason for Consult acute renal failure - History of Present Illness Patient is a 70-year-old female with history of chronic kidney disease NKF stage IIIB -IV with previous creatinine around 1.4-1.6 mg/dL in 2019 and staying more around 2.3-2 mg/dL in 2021. Etiology is likely nephrosclerosis. Patient is admitted to the hospital with increased abdominal distention. CT of the abdomen shows evidence of liver cirrhosis. Patient is currently awaiting paracentesis. Patient also has significant lower extremity edema. Serum creatinine was 1.9 yesterday and it is at 2.06. Patient has been voiding Blood pressure has not been low. No history of use of NSAIDs and I do not see any IV contrast administered this hospitalization. Patient was maintained on amiloride at home. 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 Severe recalcitrant dermatitis, Allergic rhinitis. diffuse lymphadenopathy History of Any Multi-Drug Resistant Organisms: MRSA Date of last positivie culture/infection: 08/14/2009 MDRO Source:: Open wound. Past Surgical History: Hysterectomy Additional Past Surgical History / Comment(s): common variable immune deficicency. Past Anesthesia/Blood Transfusion Reactions: No Reported Reaction Additional Past Anesthesia/Blood Transfusion Reaction / Comment(s): Slow to wake up. Past Psychological History: Anxiety, Depression Smoking Status: Never smoker Past Alcohol Use History: None Reported Additional Past Alcohol Use History / Comment(s): Patient was a smoker for a few years and quit 5 years ago. She denies any alcohol use, marijuana or illicit drug use. She is and lives at home with her . She retired in 2017 from [employer]. Past Drug Use History: None Reported - Past Family History Father Additional Family Medical History / Comment(s): Patient's father at age 92 from CVA. He also had a degenerative muscle disorder. Mother Additional Family Medical History / Comment(s): Mother is alive at age 90 with no major medical problems. Brother(s) Additional Family Medical History / Comment(s): Patient is a total of 4 siblings with no major medical problems. Patient has one daughter with no major medical problems. Medications and Allergies Home Medications Medication Instructions Recorded Confirmed Type ALPRAZolam [Xanax] 1 mg PO HS 08/29/19 08/29/21 History Citalopram Hydrobromide [CeleXA] 40 mg PO HS 08/29/19 08/29/21 History hydrOXYzine HCL [Atarax] 25 - 75 mg PO Q6H PRN 08/29/19 08/29/21 History traMADol HCL 50 mg PO BID PRN 08/29/19 08/29/21 History Cephalexin [Keflex] 500 mg PO Q6HR #28 cap 08/29/21 Rx Dicyclomine HCl 10 mg PO TID PRN 08/29/21 08/29/21 History Ergocalciferol (Vitamin D2) 1,250 mcg PO WE 08/29/21 08/29/21 History [Drisdol (50,000 Iu)] Famotidine 20 mg PO DAILY 08/29/21 08/29/21 History Ferrous Sulfate [Feosol] 325 mg PO DAILY 08/29/21 08/29/21 History Hizentra 20% Soln 50 ml SQ TH 08/29/21 08/29/21 History aMILoride HCL 5 mg PO DAILY 08/29/21 08/29/21 History Furosemide [Lasix] 40 mg PO BID #60 tablet 08/30/21 Rx Allergies Allergy/AdvReac Type Severity Reaction Status Date / Time No Known Allergies Allergy Verified 08/29/21 21:56 Physical Exam Vitals: Vital Signs Temp Pulse Pulse Resp BP BP Pulse Ox 08/30/21 08:00 84 17 08/30/21 07:00 98.1 F 84 17 117/66 93 L 08/30/21 02:00 98.0 F 85 16 134/79 96 08/30/21 00:04 98.0 F 85 16 134/79 96 08/29/21 22:00 82 18 143/70 96 08/29/21 14:56 98.2 F 96 18 134/82 97 Intake and Output 08/29/21 08/30/21 08/30/21 22:59 06:59 14:59 Intake Total 100 Balance 100 Intake: Intake, IV Titration 100 Amount Sodium Chloride 0.9% 1, 100 000 ml @ 20 mls/hr IV . Q24H [facility] Rx#:[id number] Other: # Voids 1 # Bowel Movements 0 Weight 69.4 kg Agent is awake, not in any acute distress. She is uncomfortable due to signif icant abdominal distention from ascites. Alert oriented 3 Examination of the heart S1 and S2 Examination lungs decreased breath sounds at the bases Abdomen is soft nontender significantly distended with ascites Examination of the lower extremities shows edema 2+ bilaterally [employer] exam grossly intact Results - Lab Results Most recent lab results Calcium 9.6 mg/dL (8.4-10.2) 08/30/21 10:34 Phosphorus 2.9 mg/dL (2.5-4.5) 08/30/21 10:34 Magnesium 1.8 mg/dL (1.6-2.3) 08/30/21 10:34 08/30/21 10:34 08/30/21 10:34 Assessment and Plan Assessment: 1. Acute kidney injury possibly related to tense ascites and elevated intra- abdominal pressures. Blood pressure is not low. Rule out urine retention. No nephrotoxic agents on board. Serum creatinine is not too far from baseline. 2. Chronic kidney disease NKF stage IIIB to 4 with previous creatinine around 1.5-2 mg/dL in 2020 in 2021. UA has not shown significant proteinuria. Etiology is likely nephrosclerosis 3. Significant ascites, portal hypertension associated with liver cirrhosis. Etiology not clear. Patient is being followed by GI and workup is inS 4. Pancytopenia associated with significant splenomegaly and cirrhosis 5. History of common variable immunodeficiency 6. History of mediastinal lymphadenopathy with previous workup for malignancy and negative per patient. 7. Volume overload 8. Pyuria rule out UTI Plan: Add IV Lasix Recommend paracentesis Accurate I's and O's Avoid hypotension Check urine cultures
--- NOTE | 2021-08-30 12:49 | P.CONS ---
History of Present Illness - Reason for Consult Consult date: 08/30/21 Ascites Requesting physician: Salvador Landin - Chief Complaint Abdominal pain, distention - History of Present Illness This is a pleasant 70-year-old female with a history of chronic kidney disease, hypertension, splenomegaly, immunodeficiency on Hizentra presented to the emergency department yesterday with complaints of abdominal pain and distention. Patient denies any previous history of liver disease. States she has had abdominal distention and ascites since last December as well as lower extremity swelling. She follows with Dr. Sudarshan Cardona who is an ALLERGY and home school liaison officer to be [facility]. She had a CT of the abdomen and pelvis without contrast that showed massive abdominal ascites which is essentially new compared to old exam massive splenomegaly, small liver consistent with cirrhosis that has progressed compared to old exam with mild renal atrophy. Subcutaneous edema appears new compared to old exam. Retroperitoneal lymphadenopathy up appears improved compared to old exam. Gastroenterology was consulted for ascites. She does take Lasix 40 mg twice a day. Again denies any previous knowledge of being diagnosed with liver disease. Denies any history of alcoholism, no history of hepatitis. Does not follow with a master ocean [employer] regarding liver disease and states that Dr. Cardona is aware of ascites and is aware that she has been distended since December. SHe states no prior paracentesis. Current labs WBC 2.1 hemoglobin 11.7 hematocrit 35 platelet count 45,000 INR 1.0 sodium 137 potassium 4.4 BUN 30 creatinine 2.0, total bilirubin 0.9 AST 47 ALT 32 alk phos 306 Review of Systems REVIEW OF SYSTEMS: CARDIOPULMONARY: No chest pain or shortness of breath. Lower extremity swelling bilaterally. Gastrointestinal: Burning abdominal distention, abdominal fluid. No nausea or vomiting. No hematemesis, coffee-ground emesis. No rectal bleeding, or melena. GENITOURINARY: No dysuria or hematuria. MUSCULOSKELETAL: Reports normal range of motion., Joint pain. SKIN: No rashes. No jaundice. ENDOCRINE: No chills, fevers. No excessive weight gain or loss. No polydipsia or polyuria. PSYCHIATRIC: Unremarkable. NEUROLOGY: No change in mental status. Denies dizziness, headache. ENT: Vision unremarkable. CONSTITUTIONAL: No recent weight loss. No fever, chills, night sweats. 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 Severe recalcitrant dermatitis, Allergic rhinitis. diffuse lymphadenopathy History of Any Multi-Drug Resistant Organisms: MRSA Year Discovered:: 08/14/2009 MDRO Source:: Open wound. Past Surgical History: Hysterectomy Additional Past Surgical History / Comment(s): common variable immune deficicency. Past Anesthesia/Blood Transfusion Reactions: No Reported Reaction Additional Past Anesthesia/Blood Transfusion Reaction / Comm: Slow to wake up. Past Psychological History: Anxiety, Depression Smoking Status: Never smoker Past Alcohol Use History: None Reported Additional Past Alcohol Use History / Comment(s): Patient was a smoker for a few years and quit 5 years ago. She denies any alcohol use, marijuana or illicit drug use. She is and lives at home with her . She retired in 2017 from [employer]. Past Drug Use History: None Reported - Past Family History Father Additional Family Medical History / Comment(s): Patient's father at age 92 from CVA. He also had a degenerative muscle disorder. Mother Additional Family Medical History / Comment(s): Mother is alive at age 90 with no major medical problems. Brother(s) Additional Family Medical History / Comment(s): Patient is a total of 4 siblings with no major medical problems. Patient has one daughter with no major medical problems. Medications and Allergies Home Medications Medication Instructions Recorded Confirmed Type ALPRAZolam [Xanax] 1 mg PO HS 08/29/19 08/29/21 History Citalopram Hydrobromide [CeleXA] 40 mg PO HS 08/29/19 08/29/21 History hydrOXYzine HCL [Atarax] 25 - 75 mg PO Q6H PRN 08/29/19 08/29/21 History traMADol HCL 50 mg PO BID PRN 08/29/19 08/29/21 History Cephalexin [Keflex] 500 mg PO Q6HR #28 cap 08/29/21 Rx Dicyclomine HCl 10 mg PO TID PRN 08/29/21 08/29/21 History Ergocalciferol (Vitamin D2) 1,250 mcg PO WE 08/29/21 08/29/21 History [Drisdol (50,000 Iu)] Famotidine 20 mg PO DAILY 08/29/21 08/29/21 History Ferrous Sulfate [Feosol] 325 mg PO DAILY 08/29/21 08/29/21 History Hizentra 20% Soln 50 ml SQ TH 08/29/21 08/29/21 History aMILoride HCL 5 mg PO DAILY 08/29/21 08/29/21 History Furosemide [Lasix] 40 mg PO BID #60 tablet 08/30/21 Rx Allergies Allergy/AdvReac Type Severity Reaction Status Date / Time No Known Allergies Allergy Verified 08/29/21 21:56 Physical Exam Vitals: Vital Signs Temp Pulse Pulse Resp BP BP Pulse Ox 08/30/21 07:00 98.1 F 84 17 117/66 93 L 08/30/21 02:00 98.0 F 85 16 134/79 96 08/30/21 00:04 98.0 F 85 16 134/79 96 08/29/21 22:00 82 18 143/70 96 08/29/21 14:56 98.2 F 96 18 134/82 97 Intake and Output 08/29/21 08/30/21 08/30/21 22:59 06:59 14:59 Intake Total 100 Balance 100 Intake: Intake, IV Titration 100 Amount Sodium Chloride 0.9% 1, 100 000 ml @ 20 mls/hr IV . Q24H [facility] Rx#:[id number] Other: # Voids 1 # Bowel Movements 0 Weight 69.4 kg General appearance: The patient is alert, oriented, appears in no acute distress. HET: Head is normocephalic and atraumatic. Conjunctiva pink. Sclera anicteric. Neck: Supple without lymphadenopathy. Trachea midline. Heart: S1 S2. Regular rate and rhythm. Lungs: Clear to auscultation. Abdomen: Soft, nontender, significant distention with ascites. No guarding or rigidity. Skin: No rashes. No jaundice. Extremities: Normal skin color and turgor. Bilateral +2 pitting edema. Neurological: No focal deficits. Alert and oriented x3. Results CBC & Chem 7: 08/30/21 10:34 08/30/21 10:34 Labs: Abnormal Lab Results - Last 24 Hours (Table) 08/29/21 08/29/21 08/29/21 Range/Units 22:00 22:00 22:00 WBC 2.0 L (3.8-10.6) k/uL Plt Count 47 L (150-450) k/uL Neutrophils # 1.1 L (1.3-7.7) k/uL Lymphocytes # 0.5 L (1.0-4.8) k/uL Chloride 110 H (98-107) mmol/L BUN 31 H (7-17) mg/dL Creatinine 1.98 H (0.52-1.04) mg/dL Glucose 115 H (74-99) mg/dL AST 52 H (14-36) U/L Alkaline Phosphatase 274 H (38-126) U/L Lipase 369 H (23-300) U/L Urine Appearance Cloudy H (Clear) Urine Protein Trace H (Negative) Urine Blood Trace H (Negative) Urine Nitrite Positive H (Negative) Ur Leukocyte Esterase Large H (Negative) Urine RBC 9 H (0-5) /hpf Urine WBC 49 H (0-5) /hpf Urine WBC Clumps Occasional H (None) /hpf Ur Squamous Epith Cells 5 H (0-4) /hpf Urine Bacteria Many H (None) /hpf Hyaline Casts 30 H (0-2) /lpf Urine Mucus Rare H (None) /hpf Microbiology - Last 24 Hours (Table) 08/29/21 22:00 Urine Culture - Preliminary Urine,Voided Comments: CT of the abdomen and pelvis without contrast that showed massive abdominal ascites which is essentially new compared to old exam massive splenomegaly, small liver consistent with cirrhosis that has progressed compared to old exam with mild renal atrophy. Subcutaneous edema appears new compared to old exam. Retroperitoneal lymphadenopathy up appears improved compared to old exam Assessment and Plan (1) Ascites Narrative/Plan: 70-year-old female who presented for abdominal pain and distention. Has CT of the abdomen with findings of massive amount of ascites. Patient states she started having abdominal distention since last December however has become unbearable. She states she's had swelling to the lower extremity since December as well and follows with a Dr. Cardona at a [facility]. She denies any previous knowledge of liver disease, no previous paracentesis. She has been followed for amino deficiency and splenomegaly. She has seen Dr. Navarro in the past. States she is not followed with him recently. She believes she was diagnosed back in around 2019. At that time she states that she was worked up for cancer. She was unable to urinate 2 days at home now has been urinating since his visit. She does take weekly hyzentra infusion. CT of the abdomen and pelvis also shows cirrhotic liver, splenomegaly. Plan is for therapeutic and diagnostic paracentesis this afternoon. Will treat with albumin. Continue with recommendations on diuretics from nephrology Current Visit: Yes Status: Acute Code(s): R18.8 - OTHER ASCITES SNOMED Code(s): 684709548 (2) Abdominal pain Current Visit: Yes Status: Acute Code(s): R10.9 - UNSPECIFIED ABDOMINAL PAIN SNOMED Code(s): 65802205 (3) Pancytopenia Current Visit: No Status: Acute Code(s): D61.818 - OTHER PANCYTOPENIA SNOMED Code(s): 622387326 (4) Splenomegaly Current Visit: No Status: Acute Code(s): R16.1 - SPLENOMEGALY, NOT ELSEWHERE CLASSIFIED SNOMED Code(s): 71528097 (5) Chronic kidney disease Current Visit: Yes Status: Acute Code(s): N18.9 - CHRONIC KIDNEY DISEASE, UNSPECIFIED SNOMED Code(s): 201342343 Plan: 1. Continue symptomatic and supportive care 2. Patient scheduled for paracentesis with fluid studies 3. Large volume albumin ordered, 2 packs before to after 4. Repeat daily CBC, CMP 5. Diuretics per recommendations from nephrology 6. Hematology on consult, the recommendations appreciated 7. Liver serologies ordered 8. Recommend outpatient follow-up with gastroenterology, [facility] as she is established Thank you for allowing us to participate in the care of the patient, the GI service will sign off, gastroenterology will not be available at the hospital this weekend and through next week. If further evaluation by gastroenterology is required the patient will need transfer as per the primary team's discretion. Dr. Jaxon Brown I agree with the dictator's note, documented as a scribe by Estrellita Ca.
[2021-08-30 13:02] LABS: Erythrocyte Sedimentation Rate 9 mm/hr (0-20)
[2021-08-30] MEDS: ALBUMIN HUMAN 25% 50 ML in EMPTY BAG 1 BAG IVPB SCH ×4 (14:27→17:27)
[2021-08-30] MEDS ORDERED: LIDOCAINE 1% PF 10 MG/ML (5 ML AMP) SQ ONE (14:51)
[2021-08-30 15:16] LABS: Protein, Total 6.1 g/dL (6.2-8.2)
--- NOTE | 2021-08-30 17:01 | US ---
EXAMINATION TYPE: US paracentesis abd w/image DATE OF EXAM: 08/30/2021 COMPARISON: NONE HISTORY: Ascites. PROCEDURE: Maximal barrier technique was utilized. The skin overlying a suitable pocket of fluid was localized with ultrasound and the overlying skin was prepped and draped. Ultrasound was utilized with sterile technique. Lidocaine was used for local anesthesia and a skin myesha made with a scalpel. Catheter was advanced under direct ultrasound guidance into a suitable pocket of fluid and approximately 7.9 liter s of ascitic fluid were removed. Catheter was withdrawn and hemostasis achieved. There is no immedi ate complication; the patient is discharged in stable condition. IMPRESSION: STATUS POST ULTRASOUND GUIDED PARACENTESIS FOR PALLIATION OF ASCITES. THIS PROCEDURE WA S PERFORMED BY THE UNDERSIGNED. Specimen sent for laboratory analysis.
[2021-08-30] MEDS: FUROSEMIDE 10 MG/ML 4 ML VIAL IV SCH (17:39)
[2021-08-30 18:37] LABS: Rheumatoid Factor, Qnt <10 IU/mL (0-15)
[2021-08-30] MEDS ORDERED: CITALOPRAM HYDROBROMIDE 20 MG TAB PO SCH (21:00)
--- NOTE | 2021-08-30 21:31 | P.CONS ---
History of Present Illness - Reason for Consult Consult date: 08/30/21 CIVD Requesting physician: Salvador Landin - History of Present Illness This is a very nice lady of Dr. Navarro ,known to have common variable immunodeficiency at diagnosed in 2009,has been on hizentra,she sees Dr Cardona at [facility]. She was initially admitted to [facility] in [place] in August/2019 with severe diarrhea and dehydration,bone to significant neutropenia and thrombocytopenia,she had a bone marrow biopsy which questionned a low grade MDS,however,cytogenetics,FISH for MDS and NextGen sequencing were normal. She also had a CT scan of chest which revealed bilateral small lung nodules measured up to 1.1 cm (some were present on prior CT in 2013),there was some hilar and mediastinal adenopathy (up to 1.3 cm) and left axilla node,and has reptroperitoneal nodes up to 3 cm,she was transferred to [place] and had a CT guided biopsy of retroperitoneal node which was negative,also on her CT there was significant splenomegaly. she has chronic fatigue,has early satiety,her weight is stable since last visit,no fever,night sweats,has chronic arthritic pain.She already had the COVID vaccine. She is now admitted to hospital. During last visit with Dr. navarro she has been having difficulties with sq of hizentra. Notes from [facility] reviewed (saw DR Cardona in 02/2021,considerung rituxan and aza or mycophenolate or inflixamab for interstitial lung disease,waiting further recommendation. may consider going back to IVIG,she will elo me know after talking to .. She already had the COVID vaccine and booster,we sekou mitchell and she agreed. Review of Systems All systems: negative Constitutional: Reports as per HPI Past Medical History Past Medical History: GERD/Reflux, Hypertension Additional Past Medical History / Comment(s): Common variable immunodeficiency, 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 Severe recalcitrant dermatitis, Allergic rhinitis. diffuse lymphadenopathy History of Any Multi-Drug Resistant Organisms: MRSA Year Discovered:: 08/14/2009 MDRO Source:: Open wound. Past Surgical History: Hysterectomy Additional Past Surgical History / Comment(s): common variable immune deficicency. Past Anesthesia/Blood Transfusion Reactions: No Reported Reaction Additional Past Anesthesia/Blood Transfusion Reaction / Comm: Slow to wake up. Past Psychological History: Anxiety, Depression Smoking Status: Never smoker Past Alcohol Use History: None Reported Additional Past Alcohol Use History / Comment(s): Patient was a smoker for a few years and quit 5 years ago. She denies any alcohol use, marijuana or illicit drug use. She is and lives at home with her . She retired in 2017 from [employer]. Past Drug Use History: None Reported - Past Family History Father Additional Family Medical History / Comment(s): Patient's father at age 92 from CVA. He also had a degenerative muscle disorder. Mother Additional Family Medical History / Comment(s): Mother is alive at age 90 with no major medical problems. Brother(s) Additional Family Medical History / Comment(s): Patient is a total of 4 siblings with no major medical problems. Patient has one daughter with no major medical problems. Medications and Allergies Home Medications Medication Instructions Recorded Confirmed Type ALPRAZolam [Xanax] 1 mg PO HS 08/29/19 08/29/21 History Citalopram Hydrobromide [CeleXA] 40 mg PO HS 08/29/19 08/29/21 History hydrOXYzine HCL [Atarax] 25 - 75 mg PO Q6H PRN 08/29/19 08/29/21 History traMADol HCL 50 mg PO BID PRN 08/29/19 08/29/21 History Cephalexin [Keflex] 500 mg PO Q6HR #28 cap 08/29/21 Rx Dicyclomine HCl 10 mg PO TID PRN 08/29/21 08/29/21 History Ergocalciferol (Vitamin D2) 1,250 mcg PO WE 08/29/21 08/29/21 History [Drisdol (50,000 Iu)] Famotidine 20 mg PO DAILY 08/29/21 08/29/21 History Ferrous Sulfate [Feosol] 325 mg PO DAILY 08/29/21 08/29/21 History Hizentra 20% Soln 50 ml SQ TH 08/29/21 08/29/21 History aMILoride HCL 5 mg PO DAILY 08/29/21 08/29/21 History Furosemide [Lasix] 40 mg PO BID #60 tablet 08/30/21 Rx Allergies Allergy/AdvReac Type Severity Reaction Status Date / Time No Known Allergies Allergy Verified 08/29/21 21:56 Physical Exam Vitals: Vital Signs Temp Pulse Pulse Resp BP BP Pulse Ox 08/30/21 07:00 98.1 F 84 17 117/66 93 L 08/30/21 02:00 98.0 F 85 16 134/79 96 08/30/21 00:04 98.0 F 85 16 134/79 96 08/29/21 22:00 82 18 143/70 96 08/29/21 14:56 98.2 F 96 18 134/82 97 Intake and Output 08/29/21 08/30/21 08/30/21 22:59 06:59 14:59 Intake Total 100 Balance 100 Intake: Intake, IV Titration 100 Amount Sodium Chloride 0.9% 1, 100 000 ml @ 20 mls/hr IV . Q24H [facility] Rx#:[id number] Other: # Voids 1 # Bowel Movements 0 Weight 69.4 kg Alopecia Distention - Constitutional General appearance: cooperative - EENT Eyes: EOMI ENT: NA/AT - Neck Neck: normal ROM - Respiratory Respiratory: bilateral: diminished - Cardiovascular Rhythm: regularly irregular - Gastrointestinal General gastrointestinal: distended - Integumentary Integumentary: pale - Neurologic Neurologic: CNII-XII intact - Musculoskeletal Musculoskeletal: generalized weakness - Psychiatric Psychiatric: A&O x's 3, appropriate affect, intact judgment & insight Results CBC & Chem 7: 08/30/21 10:34 08/30/21 10:34 Labs: Abnormal Lab Results - Last 24 Hours (Table) 08/29/21 08/29/21 08/29/21 Range/Units 22:00 22:00 22:00 WBC 2.0 L (3.8-10.6) k/uL Plt Count 47 L (150-450) k/uL Neutrophils # 1.1 L (1.3-7.7) k/uL Lymphocytes # 0.5 L (1.0-4.8) k/uL Chloride 110 H (98-107) mmol/L BUN 31 H (7-17) mg/dL Creatinine 1.98 H (0.52-1.04) mg/dL Glucose 115 H (74-99) mg/dL AST 52 H (14-36) U/L Alkaline Phosphatase 274 H (38-126) U/L Lipase 369 H (23-300) U/L Urine Appearance Cloudy H (Clear) Urine Protein Trace H (Negative) Urine Blood Trace H (Negative) Urine Nitrite Positive H (Negative) Ur Leukocyte Esterase Large H (Negative) Urine RBC 9 H (0-5) /hpf Urine WBC 49 H (0-5) /hpf Urine WBC Clumps Occasional H (None) /hpf Ur Squamous Epith Cells 5 H (0-4) /hpf Urine Bacteria Many H (None) /hpf Hyaline Casts 30 H (0-2) /lpf Urine Mucus Rare H (None) /hpf CT scan - abdomen: report reviewed CT scan - pelvis: report reviewed Assessment and Plan (1) Common variable immunodeficiency Narrative/Plan: Follows immunology at [facility] and monthly IVIG Sq Current Visit: Yes Status: Acute Code(s): D83.9 - COMMON VARIABLE IMMUNODEFICIENCY, UNSPECIFIED SNOMED Code(s): 06129614 (2) Thrombocytopenia Narrative/Plan: Related to her known CIVID and Splenomegaly NO ASA, NSAIDS, AC Monitor Current Visit: Yes Status: Acute Code(s): D69.6 - THROMBOCYTOPENIA, UNSPECIFIED SNOMED Code(s): 017201267 (3) Kidney insufficiency Narrative/Plan: Chronic (unknown stage) - Maybe related to monthly IVIG for IVIG versus autoimmune nephritis versus other Urine sediment and ultrasound kidneys ordered Nephrology to consult Current Visit: Yes Status: Acute Code(s): N28.9 - DISORDER OF KIDNEY AND URETER, UNSPECIFIED SNOMED Code(s): 396885894 (4) Abdominal pain Current Visit: Yes Status: Acute Code(s): R10.9 - UNSPECIFIED ABDOMINAL PAIN SNOMED Code(s): 24408195 (5) Ascites Narrative/Plan: Paracentesis with cytology is recommended Current Visit: Yes Status: Acute Code(s): R18.8 - OTHER ASCITES SNOMED Code(s): 611822750 (6) Urinary tract infection Current Visit: Yes Status: Acute Code(s): N39.0 - URINARY TRACT INFECTION, SITE NOT SPECIFIED SNOMED Code(s): 83996951 (7) Splenomegaly Current Visit: No Status: Acute Code(s): R16.1 - SPLENOMEGALY, NOT ELSEWHERE CLASSIFIED SNOMED Code(s): 93273781 Plan: Long discussion with daughter Katy, patient and sister today. Planning on paracentesis. Renal function has been worsening, concern of nephritis with underlying CVID and high risk for autoimmune phenomenons. CT does show changes in liver felt to be secondary to increased splenomegaly, congestion and decreased renal function. Discussed change of IVIG preparation to sucrose free, and increased frequency at lower dose to decrease burden on kidneys. Urine sediment and ultrasound kidneys to assess for nephritis. Hi risk for secondary malignancy, close monitoring.
[2021-08-31 02:15] VITALS: RESP 16
[2021-08-31 04:47] LABS: Albumin, Fluid Source Ascites; T. Protein, Body Fluid Source Ascites; Total Protein, Body Fluid 1430 mg/dL
[2021-08-31 07:43] VITALS: BP 139/74; PULSE 59; TEMP 97.3
[2021-08-31] MEDS: FUROSEMIDE 10 MG/ML 4 ML VIAL IV SCH (09:20)
[2021-08-31 11:49] LABS: Albumin 3.5 g/dL (3.8-4.9); Albumin/Globulin Ratio 2.06 (1.60-3.17); Anion Gap 12.8 mmol/L (10.00-18.00); BUN/Creat Ratio 14.35 Ratio (12.00-20.00); Blood Urea Nitrogen 28.7 mg/dL (9.0-27.0); Calcium 9.2 mg/dL (8.7-10.3); Carbon Dioxide 19.2 mmol/L (20.0-27.5); Globulin 1.7 g/dL (1.6-3.3); Potassium 4.1 mmol/L (3.5-5.5); Total Bilirubin 0.7 mg/dL (0.30-1.20); Total Protein 5.2 g/dL (6.2-8.2)
[2021-08-31 12:23] LABS: HCT 30.6 % (37.2-46.3); HGB 9.7 g/dL (12.0-15.0); MCH 26.8 pg (27.0-32.0); MCHC 31.7 g/dL (32.0-37.0); MCV 84.5 fL (80.0-97.0); Mean Platelet Volume 11.1 fL (9.5-12.2); NRBC Per 100 WBC 0 /100 WBCS (0.0-0.0); Platelet Count 33 X 10*3/uL (140-440); RBC 3.62 X 10*6/uL (4.10-5.20); RDW 14.6 % (11.5-14.5)
--- NOTE | 2021-08-31 13:16 | P.PN ---
Subjective Patient is seen for follow-up for chronic kidney disease and element of acute kidney injury. Patient has underlying liver cirrhosis with significant ascites and lower extremity edema. She is currently being diuresed Serum creatinine is stable staying at about 1.9-2 mg/dL. Good urine output There are plans for discharge today Objective - Vital Signs Vital signs: Vital Signs Temp 97.3 F L 08/31/21 07:42 Pulse 59 L 08/31/21 07:42 Resp 16 08/31/21 07:42 BP 139/74 08/31/21 07:42 Pulse Ox 94 L 08/31/21 07:42 FiO2 Intake & Output 08/30/21 08/31/21 08/31/21 18:59 06:59 18:59 Output Total 0 Balance 0 Output: Urine 0 Other: # Voids 1 - Exam Awake, comfortable, not in any acute distress Examination of the heart S1 and S2 Examination of the lungs bilateral breath sounds are heard Abdomen is soft nontender Exertion lower extremities shows 3+ edema bilaterally [employer] exam grossly intact - Labs CBC & Chem 7: 08/31/21 06:54 08/31/21 06:54 Labs: Abnormal Lab Results - Last 24 Hours (Table) 08/30/21 08/30/21 08/31/21 Range/Units 10:34 10:34 06:54 WBC 1.50 L (4.50-10.00) X 10*3/uL RBC 3.62 L (4.10-5.20) X 10*6/uL Hgb 9.7 L (12.0-15.0) g/dL Hct 30.6 L (37.2-46.3) % MCH 26.8 L (27.0-32.0) pg MCHC 31.7 L (32.0-37.0) g/dL RDW 14.6 H (11.5-14.5) % Plt Count 33 L (140-440) X 10*3/uL Carbon Dioxide (20.0-27.5) mmol/L BUN (9.0-27.0) mg/dL Creatinine (0.6-1.5) mg/dL Est GFR (CKD-EPI)AfAm (60.0-200.0) Est GFR (CKD-EPI)NonAf (60.0-200.0) Alkaline Phosphatase (41-126) U/L Total Protein (6.2-8.2) g/dL Total Protein (PEP) 6.1 L (6.2-8.2) g/dL Albumin (3.8-4.9) g/dL CA 125 Antigen 330.0 H (0.0-30.1) U/mL 08/31/21 Range/Units 06:54 WBC (4.50-10.00) X 10*3/uL RBC (4.10-5.20) X 10*6/uL Hgb (12.0-15.0) g/dL Hct (37.2-46.3) % MCH (27.0-32.0) pg MCHC (32.0-37.0) g/dL RDW (11.5-14.5) % Plt Count (140-440) X 10*3/uL Carbon Dioxide 19.2 L (20.0-27.5) mmol/L BUN 28.7 H (9.0-27.0) mg/dL Creatinine 2.0 H (0.6-1.5) mg/dL Est GFR (CKD-EPI)AfAm 29.0 L (60.0-200.0) Est GFR (CKD-EPI)NonAf 25.0 L (60.0-200.0) Alkaline Phosphatase 261 H (41-126) U/L Total Protein 5.2 L (6.2-8.2) g/dL Total Protein (PEP) (6.2-8.2) g/dL Albumin 3.5 L (3.8-4.9) g/dL CA 125 Antigen (0.0-30.1) U/mL Microbiology - Last 24 Hours (Table) 08/30/21 14:45 Gram Stain - Preliminary Paracentesis Fluid Body Fluid Culture - Preliminary 08/29/21 22:00 Urine Culture - Preliminary Urine,Voided Assessment and Plan Assessment: 1. Acute kidney injury possibly related to tense ascites and elevated intra- abdominal pressures. Blood pressure is not low. No urine retention. No nephrotoxic agents on board. Serum creatinine is not too far from baseline. 2. Chronic kidney disease NKF stage IIIB to 4 with previous creatinine around 1.5-2 mg/dL in 2020 in 2021. UA has not shown significant proteinuria. Etiology is likely nephrosclerosis 3. Significant ascites, portal hypertension associated with liver cirrhosis. Etiology not clear. Patient is being followed by GI and workup is inS 4. Pancytopenia associated with significant splenomegaly and cirrhosis 5. History of common variable immunodeficiency 6. History of mediastinal lymphadenopathy with previous workup for malignancy and negative per patient. 7. Volume overload 8. Pyuria rule out UTI Plan: Continue oral Lasix Follow-up with nephrology in 1-2 weeks. Patient is advised to adjust the dose of diuretics based on her weight and lower extremity edema. Maintain salt restriction.
[2021-08-31 13:21] LABS: Basophils # (A) 0.02 X 10*3/uL (0.00-0.10); Basophils % (A) 1.3 %; Elliptocytes 2+; Eosinophils # (A) 0.11 X 10*3/uL (0.04-0.35); Eosinophils % (A) 7.3 %; Immature Grans, Automated 0.7 %; Immature Platelet Fraction 3.5 % (1.1-6.1); Lymphocytes # (A) 0.39 X 10*3/uL (0.90-5.00); Monocytes # (A) 0.25 X 10*3/uL (0.20-1.00); Monocytes % (A) 16.7 %; Neutrophils # (A) 0.72 X 10*3/uL (1.80-7.70)
--- NOTE | 2021-08-31 15:07 | P.DS ---
Providers Date of admission: 08/29/21 23:34 Attending physician: Olman Barber Consults: 08/30/21 00:30 Consult Physician Routine Consulting Provider: Sparkle Brown Consult Reason/Comments: Severe ascites Do you want consulting provider notified?: Yes, Notify in am 08/30/21 09:22 Consult Physician Routine Consulting Provider: Farheen Washburn Consult Reason/Comments: CKD, GENO Nephritis vs other, CIVD Do you want consulting provider notified?: Yes Primary care physician: Piotr [facility] Course: Final Diagnosis -Ascites secondary to possible cirrhotic portal hypertension or nodular liver disease from common variable immunodeficiency. -Volume overload from hepatic congestion -Acute kidney injury possibly related to tension ascites and elevated intra- abdominal pressures, under evaluation by nephrology and will repeat BMP in 2-3 days outpatient. -Chronic kidney disease stage IV baseline creatinine around the 1.9, most likely from nephrosclerosis. -Pancytopenia secondary to splenomegaly and CVID -History of common variable immunodeficiency, she follows closely with oncology and is on immunoglobulin transfusions outpatient -Gastroesophageal reflux disease -History of mediastinal lymphadenopathy with previous workup for malignancy and negative per patient -Asymptomatic bacteriuria with culture pending patient be monitored off antibiotics. Full Code Discharge Disposition Patient is stable for discharge. She is postoperative paracentesis with 7.9 L of ascitic fluid removed that has been sent for testing. She will follow up with GI at [facility], oncology, nephrology, and primary care in 1-2 days. Repeat BMP CBC outpatient in 2-3 days. Hospital Course This is a 70-year-old pleasant female came in with complaints of abdominal pain and distention that has been worsening. She has a medical history of chronic kidney disease, hypertension, splenomegaly, immunodeficiency on Hizentra. Patient is also found to have significant ascites. Never an alcoholic, hepatitis panel is normal. She was seen in consultation by GI services for evaluation of ascites and patient was scheduled for paracentesis fluid studies as well as large volume albumin ordered 2 packs before and after. She does have history of common variable immunodeficiency and there is concern for risk of development of autoimmune disorders. For this reason patient will undergo work up for nephritis and ultrasound kidney and urine sed rate has been ordered and she can continue this work up in the outpatient setting. Patient denied any significant pain, neck supple, discomfort secondary to distention. Patient does have bilateral lower extremity edema. In the past patient had minimal ascites at that time patient was evaluated for some malignancy because of the pulmonary nodules and patient the was told that she doesn't have any malignancy. Records are not available this evaluation was done at [facility]. Patient follows at [facility] for CVID and gets IVIG infusions. Patient does have chronic kidney disease with baseline creatinine of around 1.9. She has underwent paracentesis and is being diuresed with IV lasix while patient. She will discharge on oral lasix 40 mg PO daily with instructions to take a second dose of lasix later in the day for increasing edema/weight. She is instructed also to follow low salt diet. Diagnostics include Abdominal Pelvis CT showing massive abdominal ascites which is nail. There is masses thyromegaly is much old exam. There is small liver consistent with cirrhosis has progressed compared to old exam. There is mild renal atrophy which is progressed compared to old exam. There is subcutaneous edema appears new compared to old exam. There is retroperitoneal lymphadenopathy which appears improved compared to old exam. Abdomen bladder ultrasound showing ascites, consistent with medical renal disease, splenomegaly. No evidence for hydronephrosis, no nephrolisthiasis. Right kidney measures small in size. Labs on admission showing white count 2.0, hgb 11.9, platelet count 47, neutrophils 1.1 Sodium 137, potassium 4.7, chloride 110, BUN 31, creatinine 1.8, glucose 1:15, AST 52, ALT 33, alk phos 247, Troponin negative, proBNP 629 and 700, TSH 3.620 Albumin 3.6, total protein 6.3 Amylase, 73, lipase 369, LDH 451 Tumor marker AFP 1.80, CA-125 antigen 330.0 Urinalysis completed showing cloudy urine, trace protein, trace blood, positive for nitrates, large leukocyte esterase, 49 WBC, many bacteria. Urine culture is currently pending. 08/31/2021 Patient evaluated today sitting up in the chair. She is post operative therapuetic paracentesis which fluids have been sent for cytology and pathology 7.9 L of ascitic fluid removed.. She received albumin yesterday. She has been seen in consult by oncology and nephrology services. She follows with oncology common variable immunodificiency and work up has been started to rule out nephritis. Urine sed rate has been ordered and will be collected prior to discharge and follow up with Puja for results. Also the repeat BMP outpatient. Patient denies chest pain, shortness of breath. She states her abdominal distention and pain is much improved. No nausea no vomiting or diarrhea. Lexi pheral edema 2-3 nonpitting. She'll continue on oral Lasix 40 mg daily with instructions to repeat 40 mg of Lasix in the afternoon for increased edema. She'll follow up closely with nephrology 1-2 weeks as well as oncology. She will also follow-up with her GE specialist at [facility]. Her lungs are clear today S1-S2 auscultated. Positive bowel sounds. Labs today showing white count 1.50, hemoglobin 9.7, platelet count 33, sodium 141, potassium 4.1, chloride 109, CO2 19.2, BUN 20.7, creatinine 2.0. Her alk phos is 261, AST has normalized, magnesium 1.8, phosphorus 2.9, protein 5.2, albumin 3.5. She is afebrile, heart rate 77, blood pressure 108/53, 96% room air. Please see medication reconciliation for list of current medications. Thank you for allowing us to participate in the care of this patient. The impression and plan of care has been dictated by Tammie Galdamez, Nurse Practitioner as directed. Dr. Diya MD I have performed a history and physical examination and medical decision making of this patient, discussed the same with the dictator, and agree with the dictators assessment and plan as written, documented as a scribe. Based on total visit time, I have performed more than 50% of this visit. Patient Condition at Discharge: Fair Plan - Discharge Summary Discharge Rx Participant: No New Discharge Prescriptions: New Furosemide [Lasix] 40 mg PO DAILY 30 Days #30 tablet Furosemide [Lasix] 40 mg PO 1600 PRN #15 tablet PRN Reason: Edema Cephalexin [Keflex] 500 mg PO Q6HR #28 cap No Action hydrOXYzine HCL [Atarax] 25 - 75 mg PO Q6H PRN PRN Reason: ALLERGY/ITCHING Citalopram Hydrobromide [CeleXA] 40 mg PO HS ALPRAZolam [Xanax] 1 mg PO HS traMADol HCL 50 mg PO BID PRN PRN Reason: Pain Ergocalciferol (Vitamin D2) [Drisdol (50,000 Iu)] 1,250 mcg PO WE aMILoride HCL 5 mg PO DAILY Dicyclomine HCl 10 mg PO TID PRN PRN Reason: Gi Upset Hizentra 20% Soln 50 ml SQ TH Ferrous Sulfate [Feosol] 325 mg PO DAILY Famotidine 20 mg PO DAILY Discharge Medication List ALPRAZolam [Xanax] 1 mg PO HS 08/29/19 [History] Citalopram Hydrobromide [CeleXA] 40 mg PO HS 08/29/19 [History] hydrOXYzine HCL [Atarax] 25 - 75 mg PO Q6H PRN 08/29/19 [History] traMADol HCL 50 mg PO BID PRN 08/29/19 [History] Cephalexin [Keflex] 500 mg PO Q6HR #28 cap 08/29/21 [Rx] Dicyclomine HCl 10 mg PO TID PRN 08/29/21 [History] Ergocalciferol (Vitamin D2) [Drisdol (50,000 Iu)] 1,250 mcg PO WE 08/29/21 [History] Famotidine 20 mg PO DAILY 08/29/21 [History] Ferrous Sulfate [Feosol] 325 mg PO DAILY 08/29/21 [History] Hizentra 20% Soln 50 ml SQ TH 08/29/21 [History] aMILoride HCL 5 mg PO DAILY 08/29/21 [History] Furosemide [Lasix] 40 mg PO 1600 PRN #15 tablet 08/31/21 [Rx] Furosemide [Lasix] 40 mg PO DAILY 30 Days #30 tablet 08/31/21 [Rx] Follow up Appointment(s)/Referral(s): Farheen Washburn MD [STAFF PHYSICIAN] - 2 Weeks Puja Nye ANPBC [Nurse Practitioner] - 1 Week Sparkle Brown MD [STAFF PHYSICIAN] - 1 Week Piotr Figueroa DO [Primary Care Provider] - 3 Days Ambulatory/Diagnostic Orders: Basic Metabolic Panel [LAB.AMB] Time Frame: 3 Days, Location: None Selected Patient Instructions/Handouts: Urinary Tract Infection in Women (ED), Ascites (ED), Abdominal Pain (ED) Activity/Diet/Wound Care/Special Instructions: Follow up with Gastroenterology specialist at [facility] as previously scheduled Recommend repeat BMP in 2-3 days outpatient Discharge Disposition: HOME SELF-CARE
[2021-09-01 22:04] LABS: DNA Double-Stranded NEGATIVE (NEGATIVE)
[2021-09-02 12:54] LABS: Hepatitis A Antibody IgM Nonreactive (Nonreactive); Hepatitis B Core IgM Nonreactive (Nonreactive); Hepatitis C IgG Antibody Nonreactive (Nonreactive)
[2021-09-02 13:17] LABS: Hepatitis B Surface Antigen Nonreactive (Nonreactive)
[2021-09-03 12:02] LABS: Free Kappa Lt Chain Qnt, Serum 1.26 mg/dL (0.33-1.94); Free Lambda Lt Chain Qnt, Seru 0.82 mg/dL (0.57-2.63)
[2021-09-03 13:23] LABS: Albumin 3.43 g/dL (3.80-4.90); Gamma Globulin 1.02 g/dL (0.70-1.50)
[2021-09-04] MEDS ORDERED: ERGOCALCIFEROL 1,250 MCG (50,000 IU) CAPSULE PO SCH (09:00)
== END 2021-08-31 17:20 | disposition home or self-care (01) ==
LOC: EC 14:41 → 6NMEDSUR 23:34
PROVIDERS: ADMIT Hospitalist; ATTEND Hospitalist
DX: R18.8 Other ascites (principal); N17.9 Acute kidney failure, unspecified; D83.9 Common variable immunodeficiency, unspecified; I12.9 Hypertensive chronic kidney disease with stage 1 through stage 4 chronic kidney disease, or unspecified chronic kidney disease; N18.4 Chronic kidney disease, stage 4 (severe); K74.60 Unspecified cirrhosis of liver; R16.1 Splenomegaly, not elsewhere classified; J84.9 Interstitial pulmonary disease, unspecified; D61.818 Other pancytopenia; N39.0 Urinary tract infection, site not specified; R59.1 Generalized enlarged lymph nodes; K21.9 Gastro-esophageal reflux disease without esophagitis; L30.9 Dermatitis, unspecified; J30.9 Allergic rhinitis, unspecified; R91.8 Other nonspecific abnormal finding of lung field; E87.70 Fluid overload, unspecified; E66.9 Obesity, unspecified; Z68.28 Body mass index [BMI] 28.0-28.9, adult; K76.6 Portal hypertension; F32.A Depression, unspecified; F41.9 Anxiety disorder, unspecified; Z79.899 Other long term (current) drug therapy; Z86.73 Personal history of transient ischemic attack (TIA), and cerebral infarction without residual deficits; Z87.891 Personal history of nicotine dependence; Z86.14 Personal history of Methicillin resistant Staphylococcus aureus infection; Z90.710 Acquired absence of both cervix and uterus; Z82.3 Family history of stroke; Z82.69 Family history of other diseases of the musculoskeletal system and connective tissue
CPT/HCPCS: 99285; 36415; 83880 ×2; 80053 ×3; 80074; 86304; 85652; 82042; 82150; 83615; 83690; 83735; 84100; 84443; 84550; 84484; 85025 ×3; 85610 ×2; 85045; 85730; 86431; 81001; 83516 ×3; 82103; 82105; 82784; 84165; 82390; 86038; 86225; 87070; 87086; 87205; 84157; 86334; 83883; 76770; 49083; 74176; G0378 ×2; J1940; J2001; P9047

== ENCOUNTER 2021-10-15 12:37 | Day surgery (SDC) | payer MEDICARE ==
[~2021-10-15 12:37] MED LIST: ALBUMIN HUMAN 25% 50 ML in EMPTY BAG 1 BAG IVPB ONE
[2021-10-15 13:38] LABS: Mean Platelet Volume 8.2
[2021-10-15 13:42] LABS: Prothrombin Time 11.2 sec (9.0-12.0)
[2021-10-15 13:45] LABS: Platelet Count 45 k/uL (150-450)
[2021-10-15 14:10] VITALS: TEMP 97.1
[2021-10-15] MEDS ORDERED: LIDOCAINE 1% PF 10 MG/ML (5 ML AMP) SQ ONE (14:18)
[2021-10-15] MEDS: ALBUMIN HUMAN 25% 50 ML in EMPTY BAG 1 BAG IVPB SCH ×3 (14:35→15:10)
[2021-10-15 15:16] VITALS: RESP 16
[2021-10-15 16:44] VITALS: BP 112/62; PULSE 71
--- NOTE | 2021-10-15 19:30 | US ---
EXAMINATION TYPE: US paracentesis abd w/image DATE OF EXAM: 10/15/2021 COMPARISON: NONE HISTORY: Ascites. PROCEDURE: Maximal barrier technique was utilized. The skin overlying a suitable pocket of fluid was localized with ultrasound and the overlying skin was prepped and draped. Ultrasound was utilized with sterile technique. Lidocaine was used for local anesthesia and a skin myesha made with a scalpel. Catheter was advanced under direct ultrasound guidance into a suitable pocket of fluid and approximately 10.4 lite rs of ascites fluid were removed. Catheter was withdrawn and hemostasis achieved. There is no immed iate complication; the patient is discharged in stable condition. IMPRESSION: STATUS POST ULTRASOUND GUIDED PARACENTESIS FOR PALLIATION OF ASCITES. THIS PROCEDURE WA S PERFORMED BY THE UNDERSIGNED.
== END 2021-10-15 16:40 | disposition home or self-care (01) ==
LOC: RADPROMAIN 12:37
PROVIDERS: ATTEND Internal Medicine Hematology & Oncology
DX: R18.8 Other ascites (principal); E86.1 Hypovolemia; D61.818 Other pancytopenia; I10 Essential (primary) hypertension; K58.9 Irritable bowel syndrome, unspecified; D89.89 Other specified disorders involving the immune mechanism, not elsewhere classified; D83.9 Common variable immunodeficiency, unspecified; R59.0 Localized enlarged lymph nodes; R16.1 Splenomegaly, not elsewhere classified; Z88.2 Allergy status to sulfonamides; Z88.3 Allergy status to other anti-infective agents; Z79.899 Other long term (current) drug therapy; Z80.9 Family history of malignant neoplasm, unspecified; Z87.891 Personal history of nicotine dependence; Z82.3 Family history of stroke; Z87.440 Personal history of urinary (tract) infections
CPT/HCPCS: 82565; 85049; 85610; 36415; 49083; J2001; P9047; 88108; 88305

== ENCOUNTER 2021-10-25 08:16 | Day surgery (SDC) | payer MEDICARE ==
[2021-10-25 08:53] LABS: INR 1.1 (<1.2); Prothrombin Time 11.3 sec (9.0-12.0)
[2021-10-25 08:56] LABS: Mean Platelet Volume 8.5
[2021-10-25 09:00] LABS: Platelet Count 41 k/uL (150-450)
[2021-10-25] MEDS: ALBUMIN HUMAN 25% 50 ML in EMPTY BAG 1 BAG IVPB SCH ×4 (09:32→10:31)
[2021-10-25 09:35] VITALS: RESP 16; TEMP 97.4
[2021-10-25] MEDS ORDERED: LIDOCAINE 1% PF 10 MG/ML (5 ML AMP) SQ ONE (09:40)
[2021-10-25] MEDS ORDERED: LIDOCAINE 1% INJ 10MG/ML (5 ML VIAL-PF) SQ STA (10:09)
[2021-10-25 11:03] VITALS: BP 119/61
[2021-10-25 11:26] VITALS: PULSE 65
--- NOTE | 2021-10-25 13:21 | US ---
Ultrasound-guided paracentesis. DATE OF EXAM: 10/25/2021 CLINICAL HISTORY: Ascites The procedure was discussed with the patient. The risks, complications, benefits, and alternatives we re discussed and any questions were answered. Informed consent was obtained. The patient was placed s upine on the ultrasound table and prepped and draped in the usual sterile fashion. All elements of maximal barrier technique were utilized. Under ultrasound guidance, access into the right lower quadrant was obtained, via the paracentesis catheter system and direct ultrasound guidanc e. Approximately 10.5 liters of straw-colored fluid was removed. The patient was stable throughout the p rocedure and remained stable upon discharge from Department of Radiology. IMPRESSION: Successful paracentesis under ultrasound guidance.
== END 2021-10-25 11:24 | disposition home or self-care (01) ==
LOC: RADPROMAIN 08:16
PROVIDERS: ATTEND Internal Medicine Hematology & Oncology
DX: R18.8 Other ascites (principal)
CPT/HCPCS: 82565; 85049; 85610; 36415; 49083; J2001; P9047

== ENCOUNTER 2021-11-15 08:25 | Day surgery (SDC) | payer MEDICARE ==
[2021-11-15 09:11] LABS: Mean Platelet Volume 8.1
[2021-11-15 09:13] LABS: Platelet Count 39 k/uL (150-450)
[2021-11-15 09:14] VITALS: RESP 18; TEMP 97.4
[2021-11-15 09:21] LABS: INR 0.9 (<1.2); Prothrombin Time 10.2 sec (9.0-12.0)
[2021-11-15] MEDS: ALBUMIN HUMAN 25% 50 ML in EMPTY BAG 1 BAG IVPB SCH ×3 (10:10→11:37)
[2021-11-15 10:59] VITALS: BP 107/57; PULSE 60
--- NOTE | 2021-11-22 08:18 | US ---
Ultrasound-guided paracentesis. DATE OF EXAM: 11/15/2021 CLINICAL HISTORY: Ascites The procedure was discussed with the patient. The risks, complications, benefits, and alternatives we re discussed and any questions were answered. Informed consent was obtained. The patient was placed s upine on the ultrasound table and prepped and draped in the usual sterile fashion. All elements of maximal barrier technique were utilized. Under ultrasound guidance, access into the right lower quadrant was obtained, via the paracentesis catheter system and direct ultrasound guidanc e. Approximately 4.8 liters of straw-colored fluid was removed. The patient was stable throughout the pr ocedure and remained stable upon discharge from Department of Radiology. IMPRESSION: Successful paracentesis under ultrasound guidance.
== END 2021-11-15 11:05 | disposition home or self-care (01) ==
LOC: RADPROMAIN 08:25
PROVIDERS: ATTEND Internal Medicine Hematology & Oncology
DX: R18.8 Other ascites (principal); Z88.2 Allergy status to sulfonamides; Z91.048 Other nonmedicinal substance allergy status
CPT/HCPCS: 85049; 85610; 49083; P9047

== ENCOUNTER 2021-11-22 08:11 | Day surgery (SDC) | payer MEDICARE ==
[2021-11-22 08:43] VITALS: RESP 16; TEMP 97.5
[2021-11-22 08:45] LABS: Platelet Count 38 k/uL (150-450)
[2021-11-22 08:58] LABS: Prothrombin Time 10.6 sec (9.0-12.0)
[2021-11-22] MEDS: ALBUMIN HUMAN 25% 50 ML in EMPTY BAG 1 BAG IVPB SCH ×2 (09:47→10:00)
[2021-11-22 10:27] VITALS: BP 106/65; PULSE 67
--- NOTE | 2021-11-22 12:12 | US ---
Ultrasound-guided paracentesis. DATE OF EXAM: 11/22/2021 CLINICAL HISTORY: Ascites The procedure was discussed with the patient. The risks, complications, benefits, and alternatives we re discussed and any questions were answered. Informed consent was obtained. The patient was placed s upine on the ultrasound table and prepped and draped in the usual sterile fashion. All elements of maximal barrier technique were utilized. Under ultrasound guidance, access into the right lower quadrant was obtained, via the paracentesis catheter system and direct ultrasound guidanc e. Approximately 6 liters of straw-colored fluid was removed. The patient was stable throughout the proc edure and remained stable upon discharge from Department of Radiology. IMPRESSION: Successful paracentesis under ultrasound guidance.
== END 2021-11-22 10:45 | disposition home or self-care (01) ==
LOC: RADPROMAIN 08:11
PROVIDERS: ATTEND Internal Medicine Hematology & Oncology
DX: R18.8 Other ascites (principal); Z79.899 Other long term (current) drug therapy; Z90.710 Acquired absence of both cervix and uterus
CPT/HCPCS: 85049; 85610; 49083; P9047

== ENCOUNTER 2021-11-29 08:14 | Day surgery (SDC) | payer MEDICARE ==
[2021-11-29 08:51] LABS: Mean Platelet Volume 8.2
[2021-11-29 08:54] LABS: Platelet Count 37 k/uL (150-450)
[2021-11-29 08:56] VITALS: RESP 18; TEMP 97.5
[2021-11-29 09:01] LABS: Prothrombin Time 10.6 sec (9.0-12.0)
[2021-11-29] MEDS: ALBUMIN HUMAN 25% 50 ML in EMPTY BAG 1 BAG IVPB SCH ×2 (10:10→10:37)
[2021-11-29 11:26] VITALS: BP 113/58; PULSE 73
--- NOTE | 2021-11-29 12:28 | US ---
Ultrasound-guided paracentesis. DATE OF EXAM: 11/29/2021 CLINICAL HISTORY: Ascites The procedure was discussed with the patient. The risks, complications, benefits, and alternatives we re discussed and any questions were answered. Informed consent was obtained. The patient was placed s upine on the ultrasound table and prepped and draped in the usual sterile fashion. All elements of maximal barrier technique were utilized. Under ultrasound guidance, access into the right lower quadrant was obtained, via the paracentesis catheter system and direct ultrasound guidanc e. Approximately 6.4 liters of straw-colored fluid was removed. The patient was stable throughout the pr ocedure and remained stable upon discharge from Department of Radiology. IMPRESSION: Successful paracentesis under ultrasound guidance.
== END 2021-11-29 11:20 | disposition home or self-care (01) ==
LOC: RADPROMAIN 08:14
PROVIDERS: ATTEND Internal Medicine Hematology & Oncology
DX: R18.8 Other ascites (principal)
CPT/HCPCS: 82565; 85049; 85610; 36415; 49083; P9047

== ENCOUNTER 2021-12-06 08:00 | Day surgery (SDC) | payer MEDICARE ==
[2021-12-06 08:36] LABS: Mean Platelet Volume 11.6; Platelet Count 41 k/uL (150-450)
[2021-12-06 08:45] LABS: Prothrombin Time 10.9 sec (9.0-12.0)
[2021-12-06 08:49] VITALS: TEMP 97.4
[2021-12-06] MEDS: ALBUMIN HUMAN 25% 50 ML in EMPTY BAG 1 BAG IVPB SCH ×4 (09:32→10:30)
--- NOTE | 2021-12-06 11:08 | US ---
EXAMINATION TYPE: US paracentesis abd w/image DATE OF EXAM: 12/06/2021 COMPARISON: NONE HISTORY: Ascites. PROCEDURE: Maximal barrier technique was utilized. The skin overlying a suitable pocket of fluid was localized with ultrasound and the overlying skin was prepped and draped. Ultrasound was utilized with sterile technique. Lidocaine was used for local anesthesia and a skin myesha made with a scalpel. Catheter was advanced under direct ultrasound guidance into a suitable pocket of fluid and approximately 6.2 liter s of ascites fluid were removed. Catheter was withdrawn and hemostasis achieved. There is no immedi ate complication; the patient is discharged in stable condition. IMPRESSION: STATUS POST ULTRASOUND GUIDED PARACENTESIS FOR PALLIATION OF ASCITES. THIS PROCEDURE WA S PERFORMED BY THE UNDERSIGNED.
[2021-12-06 11:14] VITALS: BP 114/58; PULSE 77; RESP 16
== END 2021-12-06 11:05 | disposition home or self-care (01) ==
LOC: RADPROMAIN 08:00
PROVIDERS: ATTEND Internal Medicine Hematology & Oncology
DX: R18.8 Other ascites (principal)
CPT/HCPCS: 82565; 85049; 85610; 36415; 49083; P9047

== ENCOUNTER 2021-12-13 08:08 | Day surgery (SDC) | payer MEDICARE ==
[2021-12-13 08:46] LABS: Mean Platelet Volume 8.2
[2021-12-13 08:53] LABS: Prothrombin Time 10.8 sec (9.0-12.0)
[2021-12-13 08:56] VITALS: TEMP 97.5
[2021-12-13] MEDS: ALBUMIN HUMAN 25% 50 ML in EMPTY BAG 1 BAG IVPB SCH ×4 (10:32→11:55)
[2021-12-13 10:40] VITALS: RESP 16
[2021-12-13 11:53] VITALS: BP 105/57; PULSE 61
[2021-12-13 14:41] LABS: Platelet Count 30 k/uL (150-450)
--- NOTE | 2021-12-13 16:13 | US ---
EXAMINATION TYPE: US paracentesis abd w/image DATE OF EXAM: 12/13/2021 COMPARISON: NONE HISTORY: Ascites. PROCEDURE: Maximal barrier technique was utilized. The skin overlying a suitable pocket of fluid was localized with ultrasound and the overlying skin was prepped and draped. Ultrasound was utilized with sterile technique. Lidocaine was used for local anesthesia and a skin myesha made with a scalpel. Catheter was advanced under direct ultrasound guidance into a suitable pocket of fluid and approximately 5 liters of ascites fluid were removed. Catheter was withdrawn and hemostasis achieved. There is no immediat e complication; the patient is discharged in stable condition. IMPRESSION: STATUS POST ULTRASOUND GUIDED PARACENTESIS FOR PALLIATION OF ASCITES. THIS PROCEDURE WA S PERFORMED BY THE UNDERSIGNED.
== END 2021-12-13 11:35 | disposition home or self-care (01) ==
LOC: RADPROMAIN 08:08
PROVIDERS: ATTEND Internal Medicine Hematology & Oncology
DX: R18.8 Other ascites (principal)
CPT/HCPCS: 82565; 85049; 85610; 36415; 49083; P9047

== ENCOUNTER 2021-12-27 08:06 | Day surgery (SDC) | payer MEDICARE ==
[2021-12-27 08:37] VITALS: TEMP 97.5
[2021-12-27 08:39] LABS: Mean Platelet Volume 8.7
[2021-12-27 08:58] LABS: Platelet Count 37 k/uL (150-450)
[2021-12-27 09:13] LABS: INR 0.9 (<1.2); Prothrombin Time 10.3 sec (9.0-12.0)
[2021-12-27] MEDS: ALBUMIN HUMAN 25% 50 ML in EMPTY BAG 1 BAG IVPB SCH ×4 (09:54→10:42)
[2021-12-27 10:58] VITALS: RESP 16
[2021-12-27 11:13] VITALS: BP 99/58; PULSE 69
--- NOTE | 2021-12-27 15:23 | US ---
EXAMINATION TYPE: US paracentesis abd w/image DATE OF EXAM: 12/27/2021 COMPARISON: NONE HISTORY: Ascites. PROCEDURE: Maximal barrier technique was utilized. The skin overlying a suitable pocket of fluid was localized with ultrasound and the overlying skin was prepped and draped. Ultrasound was utilized with sterile technique. Lidocaine was used for local anesthesia and a skin myesha made with a scalpel. Catheter was advanced under direct ultrasound guidance into a suitable pocket of fluid and approximately 10 liters of ascites fluid were removed. Catheter was withdrawn and hemostasis achieved. There is no immedia te complication; the patient is discharged in stable condition. IMPRESSION: STATUS POST ULTRASOUND GUIDED PARACENTESIS FOR PALLIATION OF ASCITES. THIS PROCEDURE WA S PERFORMED BY THE UNDERSIGNED.
== END 2021-12-27 11:30 | disposition home or self-care (01) ==
LOC: RADPROMAIN 08:06
PROVIDERS: ATTEND Internal Medicine Hematology & Oncology
DX: R18.8 Other ascites (principal); Z88.2 Allergy status to sulfonamides; Z91.048 Other nonmedicinal substance allergy status
CPT/HCPCS: 82565; 85049; 85610; 36415; 49083; P9047

== ENCOUNTER 2022-01-03 08:07 | Day surgery (SDC) | payer MEDICARE ==
[2022-01-03 08:59] LABS: Mean Platelet Volume 8.6
[2022-01-03 09:04] LABS: Platelet Count 40 k/uL (150-450)
[2022-01-03 09:12] LABS: Prothrombin Time 10.8 sec (9.0-12.0)
[2022-01-03 09:17] VITALS: RESP 16; TEMP 97.9
[2022-01-03] MEDS: ALBUMIN HUMAN 25% 50 ML in EMPTY BAG 1 BAG IVPB SCH ×4 (09:37→10:29)
[2022-01-03 11:19] VITALS: BP 105/56; PULSE 69
--- NOTE | 2022-01-03 11:45 | US ---
EXAMINATION TYPE: US paracentesis abd w/image DATE OF EXAM: 01/03/2022 COMPARISON: NONE HISTORY: Ascites. PROCEDURE: Maximal barrier technique was utilized. The skin overlying a suitable pocket of fluid was localized with ultrasound and the overlying skin was prepped and draped. Ultrasound was utilized with sterile technique. Lidocaine was used for local anesthesia and a skin myesha made with a scalpel. Catheter was advanced under direct ultrasound guidance into a suitable pocket of fluid and approximately 8 liters of ascites fluid were removed. Catheter was withdrawn and hemostasis achieved. There is no immediat e complication; the patient is discharged in stable condition. IMPRESSION: STATUS POST ULTRASOUND GUIDED PARACENTESIS FOR PALLIATION OF ASCITES. THIS PROCEDURE WA S PERFORMED BY THE UNDERSIGNED.
== END 2022-01-03 11:15 | disposition home or self-care (01) ==
LOC: RADPROMAIN 08:07
PROVIDERS: ATTEND Internal Medicine Hematology & Oncology
DX: R18.8 Other ascites (principal)
CPT/HCPCS: 82565; 85049; 85610; 36415; 49083; P9047

== ENCOUNTER 2022-01-10 08:00 | Day surgery (SDC) | payer MEDICARE ==
[2022-01-10 08:45] LABS: Mean Platelet Volume 9.1
[2022-01-10 08:49] LABS: Platelet Count 41 k/uL (150-450)
[2022-01-10 08:56] VITALS: RESP 18; TEMP 97.9
[2022-01-10 09:16] LABS: INR 0.9 (<1.2); Prothrombin Time 10.3 sec (9.0-12.0)
[2022-01-10] MEDS: ALBUMIN HUMAN 25% 50 ML in EMPTY BAG 1 BAG IVPB SCH ×4 (10:33→12:00)
[2022-01-10 11:54] VITALS: BP 121/65; PULSE 68
--- NOTE | 2022-01-10 12:25 | US ---
EXAMINATION TYPE: US paracentesis abd w/image DATE OF EXAM: 01/10/2022 COMPARISON: NONE HISTORY: Ascites. PROCEDURE: Maximal barrier technique was utilized. The skin overlying a suitable pocket of fluid was localized with ultrasound and the overlying skin was prepped and draped. Ultrasound was utilized with sterile technique. Lidocaine was used for local anesthesia and a skin myesha made with a scalpel. Catheter was advanced under direct ultrasound guidance into a suitable pocket of fluid and approximately 7.2 liter s of ascites fluid were removed. Catheter was withdrawn and hemostasis achieved. There is no immedi ate complication; the patient is discharged in stable condition. IMPRESSION: STATUS POST ULTRASOUND GUIDED PARACENTESIS FOR PALLIATION OF ASCITES. THIS PROCEDURE WA S PERFORMED BY THE UNDERSIGNED.
== END 2022-01-10 11:45 | disposition home or self-care (01) ==
LOC: RADPROMAIN 08:00
PROVIDERS: ATTEND Internal Medicine Hematology & Oncology
DX: R18.8 Other ascites (principal)
CPT/HCPCS: 82565; 85049; 85610; 36415; 49083; P9047

== ENCOUNTER 2022-01-17 08:03 | Day surgery (SDC) | payer MEDICARE ==
[2022-01-17 09:25] LABS: Mean Platelet Volume 9.1
[2022-01-17 09:28] LABS: Platelet Count 32 k/uL (150-450)
[2022-01-17 09:33] LABS: Prothrombin Time 11.2 sec (9.0-12.0)
[2022-01-17] MEDS: ALBUMIN HUMAN 25% 50 ML in EMPTY BAG 1 BAG IVPB SCH ×4 (09:50→11:46)
[2022-01-17 11:25] VITALS: TEMP 98.1
[2022-01-17 11:52] VITALS: BP 98/52; PULSE 64; RESP 14
--- NOTE | 2022-01-17 12:25 | US ---
Ultrasound-guided paracentesis. DATE OF EXAM: 01/17/2022 CLINICAL HISTORY: Ascites The procedure was discussed with the patient. The risks, complications, benefits, and alternatives we re discussed and any questions were answered. Informed consent was obtained. The patient was placed s upine on the ultrasound table and prepped and draped in the usual sterile fashion. All elements of maximal barrier technique were utilized. Under ultrasound guidance, access into the right lower quadrant was obtained, via the paracentesis catheter system and direct ultrasound guidanc e. Approximately 6.1 liters of straw-colored fluid was removed. The patient was stable throughout the pr ocedure and remained stable upon discharge from Department of Radiology. IMPRESSION: Successful paracentesis under ultrasound guidance.
== END 2022-01-17 12:12 | disposition home or self-care (01) ==
LOC: RADPROMAIN 08:03
PROVIDERS: ATTEND Internal Medicine Hematology & Oncology
DX: R18.8 Other ascites (principal)
CPT/HCPCS: 82565; 85049; 85610; 49083; P9073; P9047

== ENCOUNTER 2022-01-24 08:04 | Day surgery (SDC) | payer MEDICARE ==
[2022-01-24 08:50] LABS: Platelet Count 36 k/uL (150-450)
[2022-01-24 09:03] LABS: Prothrombin Time 10.5 sec (9.0-12.0)
[2022-01-24] MEDS: ALBUMIN HUMAN 25% 50 ML in EMPTY BAG 1 BAG IVPB SCH ×4 (09:04→11:33)
[2022-01-24 09:28] VITALS: RESP 16
[2022-01-24 10:08] VITALS: TEMP 97.7
[2022-01-24 11:38] VITALS: BP 105/56; PULSE 65
--- NOTE | 2022-01-24 12:19 | US ---
Ultrasound-guided paracentesis. DATE OF EXAM: 01/24/2022 CLINICAL HISTORY: Ascites The procedure was discussed with the patient. The risks, complications, benefits, and alternatives we re discussed and any questions were answered. Informed consent was obtained. The patient was placed s upine on the ultrasound table and prepped and draped in the usual sterile fashion. All elements of maximal barrier technique were utilized. Under ultrasound guidance, access into the right lower quadrant was obtained, via the paracentesis catheter system and direct ultrasound guidanc e. Approximately 6.7 liters of straw-colored fluid was removed. The patient was stable throughout the pr ocedure and remained stable upon discharge from Department of Radiology. IMPRESSION: Successful paracentesis under ultrasound guidance.
== END 2022-01-24 11:30 | disposition home or self-care (01) ==
LOC: RADPROMAIN 08:04
PROVIDERS: ATTEND Internal Medicine Hematology & Oncology
DX: R18.8 Other ascites (principal)
CPT/HCPCS: 82565; 85049; 85610; 36415; 49083; P9073; P9047

== ENCOUNTER 2022-01-31 08:01 | Day surgery (SDC) | payer MEDICARE ==
[2022-01-31 08:45] LABS: Mean Platelet Volume 8.8
[2022-01-31 08:46] LABS: Platelet Count 39 k/uL (150-450)
[2022-01-31 08:53] LABS: Prothrombin Time 10.6 sec (9.0-12.0)
[2022-01-31] MEDS: ALBUMIN HUMAN 25% 50 ML in EMPTY BAG 1 BAG IVPB SCH ×4 (08:54→11:24)
[2022-01-31 10:16] VITALS: RESP 16; TEMP 98
[2022-01-31 11:32] VITALS: BP 109/61; PULSE 68
--- NOTE | 2022-01-31 11:49 | US ---
Ultrasound-guided paracentesis. DATE OF EXAM: 01/31/2022 CLINICAL HISTORY: Ascites The procedure was discussed with the patient. The risks, complications, benefits, and alternatives we re discussed and any questions were answered. Informed consent was obtained. The patient was placed s upine on the ultrasound table and prepped and draped in the usual sterile fashion. All elements of maximal barrier technique were utilized. Under ultrasound guidance, access into the right lower quadrant was obtained, via the paracentesis catheter system and direct ultrasound guidanc e. Approximately 7 liters of straw-colored fluid was removed. The patient was stable throughout the proc edure and remained stable upon discharge from Department of Radiology. IMPRESSION: Successful paracentesis under ultrasound guidance.
== END 2022-01-31 11:25 | disposition home or self-care (01) ==
LOC: RADPROMAIN 08:01
PROVIDERS: ATTEND Internal Medicine Hematology & Oncology
DX: R18.8 Other ascites (principal)
CPT/HCPCS: 82565; 85049; 85610; 36415; 49083; P9073; P9047

== ENCOUNTER 2022-02-07 08:06 | Day surgery (SDC) | payer MEDICARE ==
[2022-02-07] MEDS: ALBUMIN HUMAN 25% 50 ML in EMPTY BAG 1 BAG IVPB SCH ×4 (08:34→10:39)
[2022-02-07 08:40] LABS: Mean Platelet Volume 9.4
[2022-02-07 08:45] LABS: Prothrombin Time 11.1 sec (9.0-12.0)
[2022-02-07 08:50] LABS: Platelet Count 33 k/uL (150-450)
[2022-02-07 10:28] VITALS: TEMP 97.8
[2022-02-07 11:13] VITALS: BP 107/58; PULSE 63; RESP 14
--- NOTE | 2022-02-07 14:03 | US ---
Ultrasound-guided paracentesis. DATE OF EXAM: 02/07/2022 CLINICAL HISTORY: Ascites The procedure was discussed with the patient. The risks, complications, benefits, and alternatives we re discussed and any questions were answered. Informed consent was obtained. The patient was placed s upine on the ultrasound table and prepped and draped in the usual sterile fashion. All elements of maximal barrier technique were utilized. Under ultrasound guidance, access into the right lower quadrant was obtained, via the paracentesis catheter system and direct ultrasound guidanc e. Approximately 6.6 liters of straw-colored fluid was removed. The patient was stable throughout the pr ocedure and remained stable upon discharge from Department of Radiology. IMPRESSION: Successful paracentesis under ultrasound guidance.
== END 2022-02-07 11:05 | disposition home or self-care (01) ==
LOC: RADPROMAIN 08:06
PROVIDERS: ATTEND Internal Medicine Hematology & Oncology
DX: R18.8 Other ascites (principal)
CPT/HCPCS: 82565; 85049; 85610; 36415; 49083; P9073; P9047

== ENCOUNTER 2022-02-14 08:03 | Day surgery (SDC) | payer MEDICARE ==
[2022-02-14] MEDS: ALBUMIN HUMAN 25% 50 ML in EMPTY BAG 1 BAG IVPB SCH ×4 (08:40→10:59)
[2022-02-14 08:41] LABS: Mean Platelet Volume 8.6; Platelet Count 34 k/uL (150-450)
[2022-02-14 09:02] LABS: Prothrombin Time 10.6 sec (9.0-12.0)
[2022-02-14 10:03] VITALS: TEMP 97.7
[2022-02-14 10:45] VITALS: RESP 14
[2022-02-14 11:38] VITALS: BP 100/57; PULSE 66
--- NOTE | 2022-02-14 12:07 | US ---
EXAM: Ultrasound-guided Paracentesis DATE: 02/14/2022 11:27 AM REASON FOR EXAM: Ascites RADIOLOGIST: Dr. Mead POT PULLER: None ANESTHESIA: Local Lidocaine TECHNIQUE: I verify that I have discussed the potential benefits, risks, and side effects regarding this treatme nt/procedure, the likelihood of the patient achieving his or her goals, and the potential problems th at might occur during recuperation. I verify that I have explained the alternatives to the patient i ncluding the risks, benefits, and side effects related to the alternatives and the risks related to n ot receiving the operation/procedure/treatment. The patient/surrogate decision maker has had an oppo rtunity to ask and have questions answered. I have secured the patient's or the surrogate decision m jeovanny's consent prior to the operation/procedure/treatment. Patient was placed supine on ultrasound table and the lower abdomen was prepped and draped in usual s terile fashion. 1% lidocaine was infused into the skin and subcutaneous soft tissues to achieve local anesthesia. Under sonographic guidance a 5 F Yueh needle was advanced into the ascites. Approximat geronimo 6800 ml of clear yellow fluid was removed. FINDINGS: Sonographic images of the abdomen demonstrate a large amount of free fluid. IMPRESSION: Technically successful uncomplicated paracentesis.
== END 2022-02-14 11:30 | disposition home or self-care (01) ==
LOC: RADPROMAIN 08:03
PROVIDERS: ATTEND Internal Medicine Hematology & Oncology
DX: R18.8 Other ascites (principal)
CPT/HCPCS: 82565; 85049; 85610; 36415; 49083; P9035; P9047

== ENCOUNTER 2022-03-10 08:10 | Day surgery (SDC) | payer MEDICARE ==
[2022-03-10 08:44] VITALS: RESP 18
[2022-03-10 08:48] LABS: Mean Platelet Volume 8.6
[2022-03-10 08:50] LABS: Platelet Count 43 k/uL (150-450)
[2022-03-10 08:54] LABS: INR 1.1 (<1.2); Prothrombin Time 11.7 sec (9.0-12.0)
[2022-03-10] MEDS: ALBUMIN HUMAN 25% 50 ML in EMPTY BAG 1 BAG IVPB SCH ×2 (09:20→09:40)
[2022-03-10 11:13] VITALS: BP 109/54; PULSE 54
--- NOTE | 2022-03-10 11:51 | US ---
EXAMINATION TYPE: US paracentesis abd w/image DATE OF EXAM: 03/10/2022 11:42 AM CLINICAL INDICATION:Female, 71 years old with history of R18.8 Ascites; COMPARISON: Paracentesis 02/14/2022 ATTENDING: Dr. Selvin Meadows PROCEDURE: Informed consent was obtained. The risks of the procedure were extensively explained inc luding risk of damage to surrounding bowel with perforation and need for additional procedures. Proce dure was performed in the ultrasound procedure suite. Ultrasound imaging of the abdomen demonstrate a scitic fluid. An appropriate access site was localized to the right lower abdomen. Timeout was taken per protocol. The skin was prepped and draped in the usual sterile fashion and then locally anestheti zed with 1% lidocaine. The peritoneal cavity was then accessed via a 5-[place] one-step needle/cathet er. Approximately 4200 cc of clear straw-colored fluid was obtained. Postprocedural imaging of the abdomen demonstrate a minimal amount of abdominal fluid. Patient tolerated procedure well without immediate complication. Hemostasis at the procedural site w as obtained with a sterile bandage placed. The patient was monitored in the holding area following th e procedure and was subsequently discharged in stable condition. IMPRESSION: Ultrasound guided paracentesis, with approximately 4200 cc of clear straw-colored fluid drained. No i mmediate complications were evident.
== END 2022-03-10 11:00 | disposition home or self-care (01) ==
LOC: RADPROMAIN 08:10
PROVIDERS: ATTEND Internal Medicine Hematology & Oncology
DX: R18.8 Other ascites (principal)
CPT/HCPCS: 82565; 85049; 85610; 36415; 49083; P9047

== ENCOUNTER 2022-03-17 08:27 | Day surgery (SDC) | payer MEDICARE ==
[2022-03-17 09:04] LABS: Mean Platelet Volume 7.9
[2022-03-17 09:08] LABS: Platelet Count 31 k/uL (150-450)
[2022-03-17 09:10] LABS: Prothrombin Time 10.9 sec (9.0-12.0)
[2022-03-17 09:16] VITALS: RESP 18; TEMP 97.9
[2022-03-17] MEDS: ALBUMIN HUMAN 25% 50 ML in EMPTY BAG 1 BAG IVPB SCH ×2 (10:56→11:14)
[2022-03-17] MEDS ORDERED: ALBUMIN HUMAN 25% 50 ML in EMPTY BAG 1 BAG IVPB ONE (11:24)
[2022-03-17 12:08] VITALS: BP 128/72; PULSE 78
--- NOTE | 2022-03-17 13:10 | US ---
Ultrasound-guided paracentesis. DATE OF EXAM: 03/17/2022 CLINICAL HISTORY: Ascites The procedure was discussed with the patient. The risks, complications, benefits, and alternatives we re discussed and any questions were answered. Informed consent was obtained. The patient was placed s upine on the ultrasound table and prepped and draped in the usual sterile fashion. All elements of maximal barrier technique were utilized. Under ultrasound guidance, access into the right lower quadrant was obtained, via the paracentesis catheter system and direct ultrasound guidanc e. Approximately 6.2 liters of straw-colored fluid was removed. The patient was stable throughout the pr ocedure and remained stable upon discharge from Department of Radiology. IMPRESSION: Successful paracentesis under ultrasound guidance.
== END 2022-03-17 12:00 | disposition home or self-care (01) ==
LOC: RADPROMAIN 08:27
PROVIDERS: ATTEND Internal Medicine Hematology & Oncology
DX: R18.8 Other ascites (principal)
CPT/HCPCS: 82565; 85049; 85610; 36415; 49083; P9073; P9047

== ENCOUNTER 2022-03-21 19:26 | Emergency (ER) | payer MEDICARE ==
[2022-03-21 19:46] VITALS: TEMP 97.7
--- NOTE | 2022-03-21 20:23 | XR ---
EXAMINATION TYPE: XR chest 2V DATE OF EXAM: 03/21/2022 COMPARISON: 09/03/2019 HISTORY: Short of breath TECHNIQUE: FINDINGS: Heart is normal. Lungs are clear. Diaphragm is normal. Bony thorax is intact. IMPRESSION: Normal chest. There is clearing of some mild interstitial density in the lung castillo comp ared to old exam.
--- NOTE | 2022-03-21 20:56 | ED ---
Altered Mental Status HPI - General Source: patient, RN notes reviewed Mode of arrival: ambulatory Limitations: no limitations <Marybel Navarro - Last Filed: 03/21/22 20:49> <Yogi Hooker - Last Filed: 03/22/22 02:37> - General Chief Complaint: Altered Mental Status Stated Complaint: AMS Time Seen by Provider: 03/21/22 20:50 - History of Present Illness Initial Comments: Patient is a 71 year old female who presents to the emergency department for evaluation of confusion. 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 Has abdominal paracentesis every Thursday. Over the past couple days patient has been intermittently confused. Her sister presents with her and helps provide history. States patient is having trouble gathering thoughts. No head trauma or recent fall. No speech changes, facial asymmetry, focal weakness. Patient also reports mild shortness of breath and nausea which is not unusual for her. No fever, chills, headache, upper respiratory symptoms, cough, abdominal pain, vomiting, diarrhea, burning with urination, increased urinary frequency/urgency. (Marybel Navarro) This is a 71-year-old female with a past medical history including liver failure with cirrhosis as well as hypotension on Midodrine presented to the emergency department for confusion. The patient on my evaluation was ANO 4 but did have trouble finding her words intermittently. The patient was calm P by her friend at the bedside and did confirm this. The patient was able to answer questions appropriately however did have episodes where she seemed confused. The patient denied of any acute pain or distress however but did state that she had distended abdomen that was baseline for her. The patient had a paracentesis performed on Thursday and has one performed every week. The patient stated that she had 6 L of fluid taken off on Thursday and stated that was normal for her. The patient denied any other acute pain or complaints at this time. (Yogi Hooker) - Related Data Home Medications Medication Instructions Recorded Confirmed ALPRAZolam [Xanax] 1 mg PO BID PRN 08/29/19 03/17/22 Citalopram Hydrobromide [CeleXA] 40 mg PO HS 08/29/19 03/17/22 hydrOXYzine HCL [Atarax] 25 - 75 mg PO Q6H PRN 08/29/19 03/17/22 traMADol HCL 50 mg PO BID PRN 08/29/19 03/17/22 Ergocalciferol (Vitamin D2) 1,250 mcg PO WE 08/29/21 03/17/22 [Drisdol (50,000 Iu)] Hizentra 20% Soln 50 ml SQ ONCE 08/29/21 03/17/22 Dicyclomine HCl 10 mg PO TID PRN 12/06/21 03/17/22 Docosanol 10% Cream [Abreva] 1 applic TOPICAL DAILY 03/10/22 03/17/22 Lactulose 30 gm PO ONCE 03/10/22 03/17/22 Midodrine [ProAmatine] 5 mg PO TID 03/10/22 03/17/22 Octreotide Acetate,Mi-Spheres 200 mcg SQ TID 03/10/22 03/17/22 [SandoSTATIN LAR Dep[place]] Omeprazole 20 mg PO DAILY 03/10/22 03/17/22 Previous Rx's Medication Instructions Recorded Ondansetron Odt [Zofran Odt] 4 mg PO Q8HR PRN #30 tab 03/22/22 Allergies Allergy/AdvReac Type Severity Reaction Status Date / Time sulfamethoxazole AdvReac Nausea Verified 03/17/22 11:03 [From Bactrim] trimethoprim [From Bactrim] AdvReac Nausea Verified 03/17/22 11:03 Review of Systems ROS Other: All systems not noted in ROS Statement are negative. <Marybel Navarro - Last Filed: 03/21/22 20:49> ROS Other: All systems not noted in ROS Statement are negative. <Yogi Hooker - Last Filed: 03/22/22 02:37> ROS Statement: Those systems with pertinent positive or pertinent negative responses have been documented in the HPI. 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 Severe recalcitrant dermatitis, Allergic rhinitis. diffuse lymphadenopathy, liver failure, kidney failure, hepatorenal syndrome History of Any Multi-Drug Resistant Organisms: MRSA Date of last positivie culture/infection: 08/23/2009 MDRO Source:: open wound Past Surgical History: Hysterectomy Additional Past Surgical History / Comment(s): common variable immune deficicency, paracentesis, colonoscopy with polyp removal Past Anesthesia/Blood Transfusion Reactions: No Reported Reaction Additional Past Anesthesia/Blood Transfusion Reaction / Comment(s): Slow to wake up. Past Psychological History: Anxiety, Depression Smoking Status: Never smoker Past Alcohol Use History: None Reported Past Drug Use History: None Reported - Past Family History Father Additional Family Medical History / Comment(s): Patient's father at age 92 from CVA. He also had a degenerative muscle disorder. Mother Additional Family Medical History / Comment(s): Mother is alive at age 90 with no major medical problems. Brother(s) Additional Family Medical History / Comment(s): Patient is a total of 4 siblings with no major medical problems. Patient has one daughter with no major medical problems. <Marybel Navarro - Last Filed: 03/21/22 20:49> General Exam Limitations: no limitations <Marybel Navarro - Last Filed: 03/21/22 20:49> Limitations: no limitations, altered mental status (Patient was ANO 4 however was intermittently confused with difficulties finding words) General appearance: alert, in no apparent distress Head exam: Present: atraumatic, normocephalic, normal inspection Eye exam: Present: normal appearance, PERRL Pupils: Present: normal accommodation ENT exam: Present: normal exam, normal oropharynx, mucous membranes moist Neck exam: Present: normal inspection, full ROM Respiratory exam: Present: normal lung sounds bilaterally Cardiovascular Exam: Present: regular rate, normal rhythm, normal heart sounds GI/Abdominal exam: Present: soft, distended, other (Fluid wave present) Extremities exam: Present: normal inspection, full ROM Back exam: Present: normal inspection, full ROM Neurological exam: Present: alert, oriented X3, CN II-XII intact Psychiatric exam: Present: normal affect, normal mood Skin exam: Present: warm, dry <Yogi Hooker - Last Filed: 03/22/22 02:37> Course Vital Signs 03/21/22 03/21/22 19:43 23:41 Temperature 97.7 F Pulse Rate 85 76 Respiratory 16 18 Rate Blood Pressure 161/77 163/76 O2 Sat by Pulse 98 99 Oximetry Medical Decision Making - Lab Data Result diagrams: 03/21/22 22:30 03/21/22 22:30 <Yogi Hooker - Last Filed: 03/22/22 02:37> - Medical Decision Making Was pt. sent in by a medical professional or institution ([facility], EMERGENCY ROOM REGISTERED NURSE, urgent care, hospital, or fpc...) When possible be specific @ -No Did you speak to anyone other than the patient for history (EMS, parent, family, police, friend...)? What history was obtained from this source @ -No Did you review nursing and triage notes (agree or disagree)? Why? @ -I reviewed and agree with nursing and triage notes Were old charts reviewed (outside hosp., previous admission, EMS record, old EKG, old radiological studies, urgent care reports/EKG's, fpc records)? Report findings @ -No old charts were reviewed Differential Diagnosis (chest pain, altered mental status, abdominal pain women, abdominal pain men, vaginal bleeding, weakness, fever, dyspnea, syncope, headache, dizziness, GI bleed, back pain, seizure, CVA, palpatations, mental health)? @ -Hyperammonemia, UTI, sepsis EKG interpreted by me (3pts min.). @ -An EKG was obtained and was interpreted by myself. EKG showed a rate of 74, NV interval of 152, QRS duration of 76 and QTC of 419. This EKG showed a normal sinus rhythm with no ST segment elevation or depression noted. X-rays interpreted by me (1pt min.). @ -A chest x-ray was obtained and was interpreted by myself showing a normal chest. There was clearing of some mild interstitial density in the lung castillo compared to old exam. CT interpreted by me (1pt min.). @ -CT of the head was obtained and was interpreted by myself showing no acute process. U/S interpreted by me (1pt. min.). @ -None done What testing was considered but not performed or refused? (CT, X-rays, U/S, labs)? Why? @ -None What meds were considered but not given or refused? Why? @ -None Did you discuss the management of the patient with other professionals (professionals i.e. [facility], EMERGENCY ROOM REGISTERED NURSE, lab, RT, psych nurse, social media editor, pharmacy laboratory technician, teacher, branch officer, family caseworker)? Give summary @ -No Was smoking cessation discussed for >3mins.? @ -No Was critical care preformed (if so, how long)? @ -No Were there social determinants of health that impacted care today? How? (Homelessness, low income, unemployed, alcoholism, drug addiction, transportation, low edu. Level, literacy, decrease access to med. care, half-way, rehab)? @ -No Was there de-escalation of care discussed even if they declined (Discuss DNR or withdrawal of care, Hospice)? DNR status @ -No What co-morbidities impacted this encounter? (DM, HTN, Smoking, COPD, CAD, Can cer, CVA, ARF, Chemo, Hep., AIDS, mental health diagnosis, sleep apnea, morbid obesity)? @ -Cirrhosis Was patient admitted / discharged? Hospital course, mention meds given and route, prescriptions, significant lab abnormalities, going to OR and other pertinent info. @ -The patient was seen and evaluated emergency department. Physical exam, the patient was resting in bed without any acute distress. The patient had normal vital signs and was able to answer all questions appropriately. The patient was having intermittent issues finding words however was able to answer all questions appropriately and was ANO 4. Imaging including chest x-ray and head CT were within normal limits. Laboratory workup showed a creatinine of 2.73 which is decreased from her baseline. The patient's liver enzymes were also slightly elevated but were at her baseline. Ammonia was elevated at 33. Urinalysis was negative and swabs are negative on reevaluation, the patient stated that she was only mildly nauseous and was able to state that she was not any other acute pain. The patient was given Zofran as well as a prescription for Zofran to be taken at home. The patient was advised to take her medications as prescribed and the friend that was with her was also advised of this. The patient as well as the friend had all their questions answered appropriately and the patient did have full understanding of her medical problems and the severity of them. The patient was advised to follow-up with her lehr loader. The patient was discharged home in stable condition with her friend. Undiagnosed new problem with uncertain prognosis? @ -No Drug Therapy requiring intensive monitoring for toxicity (Heparin, Nitro, Insulin, Cardizem)? @ -No Were any procedures done? @ -No Diagnosis/symptom? @ -Nausea, secondary to chronic cirrhosis Acute, or Chronic, or Acute on Chronic? @ -Acute Uncomplicated (without systemic symptoms) or Complicated (systemic symptoms)? @ -Uncomplicated Side effects of treatment? @ -No Exacerbation, Progression, or Severe Exacerbation? @ -No Poses a threat to life or bodily function? How? (Chest pain, USA, MA, pneumonia, PE, COPD, DKA, ARF, appy, cholecystitis, CVA, Diverticulitis, Homicidal, Suicidal, threat to staff... and all critical care pts) @ -No (Yogi Hooker) - Lab Data Lab Results 03/21/22 03/21/22 03/21/22 Range/Units 22:30 22:30 22:30 WBC 4.0 (3.8-10.6) k/uL RBC 3.94 (3.80-5.40) m/uL Hgb 11.5 (11.4-16.0) gm/dL Hct 33.9 L (34.0-46.0) % MCV 86.0 (80.0-100.0) fL MCH 29.3 (25.0-35.0) pg MCHC 34.1 (31.0-37.0) g/dL RDW 18.0 H (11.5-15.5) % Plt Count 31 L (150-450) k/uL MPV 7.2 Neutrophils % 71 % Lymphocytes % 11 % Monocytes % 7 % Eosinophils % 7 % Basophils % 1 % Neutrophils # 2.9 (1.3-7.7) k/uL Lymphocytes # 0.4 L (1.0-4.8) k/uL Monocytes # 0.3 (0-1.0) k/uL Eosinophils # 0.3 (0-0.7) k/uL Basophils # 0.0 (0-0.2) k/uL Poikilocytosis Slight Anisocytosis Slight PT 10.5 (9.0-12.0) sec INR 1.0 (<1.2) APTT 24.0 (22.0-30.0) sec Sodium 143 (137-145) mmol/L Potassium 4.5 (3.5-5.1) mmol/L Chloride 114 H (98-107) mmol/L Carbon Dioxide 17 L (22-30) mmol/L Anion Gap 12 mmol/L BUN 76 H (7-17) mg/dL Creatinine 2.73 H (0.52-1.04) mg/dL Est GFR (CKD-EPI)AfAm 20 (>60 ml/min/1.73 sqM) Est GFR (CKD-EPI)NonAf 17 (>60 ml/min/1.73 sqM) Glucose 122 H (74-99) mg/dL Calcium 9.9 (8.4-10.2) mg/dL Magnesium 2.2 (1.6-2.3) mg/dL Total Bilirubin 1.1 (0.2-1.3) mg/dL AST 62 H (14-36) U/L ALT 46 H (4-34) U/L Alkaline Phosphatase 232 H (38-126) U/L Ammonia (<30) umol/L Troponin I (0.000-0.034) ng/mL Total Protein 6.3 (6.3-8.2) g/dL Albumin 4.4 (3.5-5.0) g/dL Urine Color Urine Appearance (Clear) Urine pH (5.0-8.0) Ur Specific [place] (1.001-1.035) Urine Protein (Negative) Urine Glucose (UA) (Negative) Urine Ketones (Negative) Urine Blood (Negative) Urine Nitrite (Negative) Urine Bilirubin (Negative) Urine Urobilinogen (<2.0) mg/dL Ur Leukocyte Esterase (Negative) Influenza Type A (PCR) (Not Detectd) Influenza Type B (PCR) (Not Detectd) RSV (PCR) (Not Detectd) SARS-CoV-2 (PCR) (Not Detectd) 03/21/22 03/21/22 03/21/22 Range/Units 22:30 22:30 22:30 WBC (3.8-10.6) k/uL RBC (3.80-5.40) m/uL Hgb (11.4-16.0) gm/dL Hct (34.0-46.0) % MCV (80.0-100.0) fL MCH (25.0-35.0) pg MCHC (31.0-37.0) g/dL RDW (11.5-15.5) % Plt Count (150-450) k/uL MPV Neutrophils % % Lymphocytes % % Monocytes % % Eosinophils % % Basophils % % Neutrophils # (1.3-7.7) k/uL Lymphocytes # (1.0-4.8) k/uL Monocytes # (0-1.0) k/uL Eosinophils # (0-0.7) k/uL Basophils # (0-0.2) k/uL Poikilocytosis Anisocytosis PT (9.0-12.0) sec INR (<1.2) APTT (22.0-30.0) sec Sodium (137-145) mmol/L Potassium (3.5-5.1) mmol/L Chloride (98-107) mmol/L Carbon Dioxide (22-30) mmol/L Anion Gap mmol/L BUN (7-17) mg/dL Creatinine (0.52-1.04) mg/dL Est GFR (CKD-EPI)AfAm (>60 ml/min/1.73 sqM) Est GFR (CKD-EPI)NonAf (>60 ml/min/1.73 sqM) Glucose (74-99) mg/dL Calcium (8.4-10.2) mg/dL Magnesium (1.6-2.3) mg/dL Total Bilirubin (0.2-1.3) mg/dL AST (14-36) U/L ALT (4-34) U/L Alkaline Phosphatase (38-126) U/L Ammonia 33 H (<30) umol/L Troponin I 0.014 (0.000-0.034) ng/mL Total Protein (6.3-8.2) g/dL Albumin (3.5-5.0) g/dL Urine Color Urine Appearance (Clear) Urine pH (5.0-8.0) Ur Specific [place] (1.001-1.035) Urine Protein (Negative) Urine Glucose (UA) (Negative) Urine Ketones (Negative) Urine Blood (Negative) Urine Nitrite (Negative) Urine Bilirubin (Negative) Urine Urobilinogen (<2.0) mg/dL Ur Leukocyte Esterase (Negative) Influenza Type A (PCR) Not Detected (Not Detectd) Influenza Type B (PCR) Not Detected (Not Detectd) RSV (PCR) Not Detected (Not Detectd) SARS-CoV-2 (PCR) Not Detected (Not Detectd) 03/22/22 Range/Units 00:30 WBC (3.8-10.6) k/uL RBC (3.80-5.40) m/uL Hgb (11.4-16.0) gm/dL Hct (34.0-46.0) % MCV (80.0-100.0) fL MCH (25.0-35.0) pg MCHC (31.0-37.0) g/dL RDW (11.5-15.5) % Plt Count (150-450) k/uL MPV Neutrophils % % Lymphocytes % % Monocytes % % Eosinophils % % Basophils % % Neutrophils # (1.3-7.7) k/uL Lymphocytes # (1.0-4.8) k/uL Monocytes # (0-1.0) k/uL Eosinophils # (0-0.7) k/uL Basophils # (0-0.2) k/uL Poikilocytosis Anisocytosis PT (9.0-12.0) sec INR (<1.2) APTT (22.0-30.0) sec Sodium (137-145) mmol/L Potassium (3.5-5.1) mmol/L Chloride (98-107) mmol/L Carbon Dioxide (22-30) mmol/L Anion Gap mmol/L BUN (7-17) mg/dL Creatinine (0.52-1.04) mg/dL Est GFR (CKD-EPI)AfAm (>60 ml/min/1.73 sqM) Est GFR (CKD-EPI)NonAf (>60 ml/min/1.73 sqM) Glucose (74-99) mg/dL Calcium (8.4-10.2) mg/dL Magnesium (1.6-2.3) mg/dL Total Bilirubin (0.2-1.3) mg/dL AST (14-36) U/L ALT (4-34) U/L Alkaline Phosphatase (38-126) U/L Ammonia (<30) umol/L Troponin I (0.000-0.034) ng/mL Total Protein (6.3-8.2) g/dL Albumin (3.5-5.0) g/dL Urine Color Yellow Urine Appearance Clear (Clear) Urine pH 5.5 (5.0-8.0) Ur Specific [place] 1.017 (1.001-1.035) Urine Protein Negative (Negative) Urine Glucose (UA) Negative (Negative) Urine Ketones Negative (Negative) Urine Blood Negative (Negative) Urine Nitrite Negative (Negative) Urine Bilirubin Negative (Negative) Urine Urobilinogen <2.0 (<2.0) mg/dL Ur Leukocyte Esterase Negative (Negative) Influenza Type A (PCR) (Not Detectd) Influenza Type B (PCR) (Not Detectd) RSV (PCR) (Not Detectd) SARS-CoV-2 (PCR) (Not Detectd) Disposition <Marybel Navarro - Last Filed: 03/21/22 20:49> Is patient prescribed a controlled substance at d/c from ED?: No Time of Disposition: 02:00 <Yogi Hooker - Last Filed: 03/22/22 02:37> Clinical Impression: Nausea, Cirrhosis Disposition: HOME SELF-CARE Condition: Stable Instructions (If sedation given, give patient instructions): Cirrhosis (ED), Acute Nausea and Vomiting (DC) Prescriptions: Ondansetron Odt [Zofran Odt] 4 mg PO Q8HR PRN #30 tab PRN Reason: Nausea Referrals: Piotr Figueroa DO [Primary Care Provider] - 1-2 days
--- NOTE | 2022-03-21 22:04 | CT ---
EXAMINATION TYPE: CT brain wo con DATE OF EXAM: 03/21/2022 COMPARISON: None HISTORY: liver disease. Confusion CT DLP: 1099.4 mGycm Automated exposure control for dose reduction was used. Images obtained of the brain with no contrast. Ventricles have normal size. There is no mass effect nor midline shift. No sign of intracranial hemor rhage. The calvarium is intact. There is normal aeration of the mastoid sinuses. Skull base is intact . Sella turcica is normal. IMPRESSION: Negative unenhanced head CT scan.
[2022-03-21 23:30] LABS: Anisocytosis Slight; Basophils % (A) 1 %; Eosinophils # (A) 0.3 k/uL (0-0.7); Eosinophils % (A) 7 %; HCT 33.9 % (34.0-46.0); HGB 11.5 gm/dL (11.4-16.0); Lymphocytes # (A) 0.4 k/uL (1.0-4.8); Lymphocytes % (A) 11 %; MCH 29.3 pg (25.0-35.0); MCHC 34.1 g/dL (31.0-37.0); Mean Platelet Volume 7.2; Monocytes # (A) 0.3 k/uL (0-1.0); Monocytes % (A) 7 %; Neutrophils # (A) 2.9 k/uL (1.3-7.7); Neutrophils % (A) 71 %; Poikilocytosis Slight; RBC 3.94 m/uL (3.80-5.40)
[2022-03-21 23:38] LABS: Platelet Count 31 k/uL (150-450)
[2022-03-21 23:47] LABS: Prothrombin Time 10.5 sec (9.0-12.0)
[2022-03-22 00:08] LABS: Albumin 4.4 g/dL (3.5-5.0); Calcium 9.9 mg/dL (8.4-10.2); Magnesium 2.2 mg/dL (1.6-2.3); Potassium 4.5 mmol/L (3.5-5.1); Total Bilirubin 1.1 mg/dL (0.2-1.3); Total Protein 6.3 g/dL (6.3-8.2)
[2022-03-22 00:44] LABS: Appearance,Urine Clear (Clear); Bilirubin,Urine Negative (Negative); Blood,Urine Negative (Negative); Color,Urine Yellow; Glucose,Urine (UA) Negative (Negative); Ketones,Urine Negative (Negative); Leukocyte Esterase,Urine Negative (Negative); Nitrite,Urine Negative (Negative); PH, Urine 5.5 (5.0-8.0); Protein,Urine Negative (Negative); Specific Gravity,Urine 1.017 (1.001-1.035); Urobilinogen,Urine <2.0 mg/dL (<2.0)
[2022-03-22] MEDS ORDERED: ONDANSETRON 4 MG/2 ML VIAL IVP STA (02:07)
[2022-03-22 04:27] VITALS: BP 158/78; PULSE 72; RESP 16
== END 2022-03-22 02:54 | disposition home or self-care (01) ==
LOC: EC 19:26
DX: K74.60 Unspecified cirrhosis of liver (principal); R11.0 Nausea; J98.4 Other disorders of lung; K21.9 Gastro-esophageal reflux disease without esophagitis; I10 Essential (primary) hypertension; F41.9 Anxiety disorder, unspecified; F32.A Depression, unspecified; Z20.822 Contact with and (suspected) exposure to COVID-19; Z79.899 Other long term (current) drug therapy; Z88.2 Allergy status to sulfonamides; Z88.1 Allergy status to other antibiotic agents
CPT/HCPCS: 36415; 93005; 80053; 82140; 83735; 84484; 85025; 85610; 85730; 81003; 87636; 71046; 70450; 99285; 96374; J2405

== ENCOUNTER 2022-03-24 08:03 | Day surgery (SDC) | payer MEDICARE ==
[2022-03-24 08:35] LABS: Mean Platelet Volume 8.6
[2022-03-24 08:41] LABS: Platelet Count 31 k/uL (150-450)
[2022-03-24 08:42] LABS: Prothrombin Time 10.9 sec (9.0-12.0)
[2022-03-24 08:45] VITALS: TEMP 97.8
[2022-03-24] MEDS: ALBUMIN HUMAN 25% 50 ML in EMPTY BAG 1 BAG IVPB SCH ×3 (10:10→10:48)
[2022-03-24 11:36] VITALS: BP 127/61; PULSE 82; RESP 18
--- NOTE | 2022-03-24 15:06 | US ---
Ultrasound-guided paracentesis. DATE OF EXAM: 03/24/2022 CLINICAL HISTORY: Ascites The procedure was discussed with the patient. The risks, complications, benefits, and alternatives we re discussed and any questions were answered. Informed consent was obtained. The patient was placed s upine on the ultrasound table and prepped and draped in the usual sterile fashion. All elements of maximal barrier technique were utilized. Under ultrasound guidance, access into the right lower quadrant was obtained, via the paracentesis catheter system and direct ultrasound guidanc e. Approximately 6 liters of straw-colored fluid was removed. The patient was stable throughout the proc edure and remained stable upon discharge from Department of Radiology. IMPRESSION: Successful paracentesis under ultrasound guidance.
== END 2022-03-24 11:10 | disposition home or self-care (01) ==
LOC: RADPROMAIN 08:03
PROVIDERS: ATTEND Internal Medicine Hematology & Oncology
DX: R18.8 Other ascites (principal)
CPT/HCPCS: 82565; 85049; 85610; 36415; 49083; P9073; P9047

== ENCOUNTER 2022-03-31 07:57 | Day surgery (SDC) | payer MEDICARE ==
[2022-03-31 08:30] VITALS: RESP 16; TEMP 97.5
[2022-03-31] MEDS: ALBUMIN HUMAN 25% 50 ML in EMPTY BAG 1 BAG IVPB SCH ×3 (08:39→09:38)
[2022-03-31 08:46] LABS: INR 0.9 (<1.2); Prothrombin Time 10.1 sec (9.0-12.0)
[2022-03-31 08:47] LABS: Platelet Count 44 k/uL (150-450)
[2022-03-31 10:15] VITALS: BP 115/87; PULSE 84
--- NOTE | 2022-03-31 12:22 | US ---
Ultrasound-guided paracentesis. DATE OF EXAM: 03/31/2022 CLINICAL HISTORY: Ascites The procedure was discussed with the patient. The risks, complications, benefits, and alternatives we re discussed and any questions were answered. Informed consent was obtained. The patient was placed s upine on the ultrasound table and prepped and draped in the usual sterile fashion. All elements of maximal barrier technique were utilized. Under ultrasound guidance, access into the right lower quadrant was obtained, via the paracentesis catheter system and direct ultrasound guidanc e. Approximately 6 liters of straw-colored fluid was removed. The patient was stable throughout the proc edure and remained stable upon discharge from Department of Radiology. IMPRESSION: Successful paracentesis under ultrasound guidance.
== END 2022-03-31 10:35 | disposition home or self-care (01) ==
LOC: RADPROMAIN 07:57
PROVIDERS: ATTEND Internal Medicine Hematology & Oncology
DX: R18.8 Other ascites (principal)
CPT/HCPCS: 82565; 85049; 85610; 36415; 49083; P9047

== ENCOUNTER 2022-04-07 08:03 | Day surgery (SDC) | payer MEDICARE ==
[2022-04-07 08:43] LABS: Mean Platelet Volume 8.6
[2022-04-07 08:44] VITALS: TEMP 97.7
[2022-04-07 08:49] LABS: Platelet Count 41 k/uL (150-450)
[2022-04-07] MEDS: ALBUMIN HUMAN 25% 50 ML in EMPTY BAG 1 BAG IVPB SCH ×4 (08:50→15:00)
[2022-04-07 08:51] LABS: Prothrombin Time 10.4 sec (9.0-12.0)
[2022-04-07 10:56] VITALS: RESP 16
[2022-04-07 11:22] VITALS: BP 112/55; PULSE 74
--- NOTE | 2022-04-07 12:33 | US ---
EXAMINATION TYPE: US paracentesis abd w/image DATE OF EXAM: 04/07/2022 CLINICAL HISTORY: Ascites The procedure was discussed with the patient. The risks, complications, benefits, and alternatives we re discussed and any questions were answered. Informed consent was obtained. The patient was placed s upine on the ultrasound table and prepped and draped in the usual sterile fashion. All elements of maximal barrier technique were utilized. Ultrasound was used to brian an appropriate s ite in the right lower quadrant. Access to the ascites was obtained with a paracentesis catheter syst em. Approximately 5.8 liters of clear yellow fluid was removed. The patient was stable throughout the pro cedure and remained stable upon discharge from Department of Radiology. IMPRESSION: Successful therapeutic paracentesis under ultrasound guidance.
== END 2022-04-07 11:29 | disposition home or self-care (01) ==
LOC: RADPROMAIN 08:03
PROVIDERS: ATTEND Internal Medicine Hematology & Oncology
DX: R18.8 Other ascites (principal)
CPT/HCPCS: 82565; 85049; 85610; 36415; 49083; P9047

== ENCOUNTER 2022-04-14 08:16 | Day surgery (SDC) | payer MEDICARE ==
[2022-04-14 08:42] VITALS: RESP 16; TEMP 97.9
[2022-04-14 08:42] LABS: Mean Platelet Volume 9.6
[2022-04-14 08:45] LABS: Platelet Count 49 k/uL (150-450)
[2022-04-14 09:08] LABS: Prothrombin Time 10.2 sec (9.0-12.0)
[2022-04-14] MEDS: ALBUMIN HUMAN 25% 50 ML in EMPTY BAG 1 BAG IVPB SCH ×3 (09:27→09:59)
--- NOTE | 2022-04-14 09:55 | US ---
Ultrasound-guided paracentesis. DATE OF EXAM: 04/14/2022 CLINICAL HISTORY: Ascites The procedure was discussed with the patient. The risks, complications, benefits, and alternatives we re discussed and any questions were answered. Informed consent was obtained. The patient was placed s upine on the ultrasound table and prepped and draped in the usual sterile fashion. All elements of maximal barrier technique were utilized. Under ultrasound guidance, access into the right lower quadrant was obtained, via the paracentesis catheter system and direct ultrasound guidanc e. Approximately 5.5 liters of straw-colored fluid was removed. The patient was stable throughout the pr ocedure and remained stable upon discharge from Department of Radiology. IMPRESSION: Successful paracentesis under ultrasound guidance.
[2022-04-14 10:26] VITALS: BP 106/67; PULSE 78
== END 2022-04-14 10:40 | disposition home or self-care (01) ==
LOC: RADPROMAIN 08:16
PROVIDERS: ATTEND Internal Medicine Hematology & Oncology
DX: R18.8 Other ascites (principal)
CPT/HCPCS: 82565; 85049; 85610; 36415; 49083; P9047

== ENCOUNTER 2022-06-02 08:03 | Day surgery (SDC) | payer MEDICARE ==
[2022-06-02 08:49] VITALS: TEMP 98.2
[2022-06-02 08:51] LABS: Platelet Count 39 k/uL (150-450)
[2022-06-02 09:05] LABS: Prothrombin Time 10.3 sec (9.0-12.0)
[2022-06-02 09:52] VITALS: RESP 16
[2022-06-02 09:54] LABS: Albumin 3.4 g/dL (3.5-5.0); Calcium 8.6 mg/dL (8.4-10.2); Total Bilirubin 0.6 mg/dL (0.2-1.3); Total Protein 5.9 g/dL (6.3-8.2)
[2022-06-02] MEDS: ALBUMIN HUMAN 25% 50 ML in EMPTY BAG 1 BAG IVPB SCH ×4 (09:56→10:49)
[2022-06-02 11:02] VITALS: BP 120/70; PULSE 76
--- NOTE | 2022-06-02 11:16 | US ---
Ultrasound-guided paracentesis. DATE OF EXAM: 06/02/2022 CLINICAL HISTORY: Ascites The procedure was discussed with the patient. The risks, complications, benefits, and alternatives we re discussed and any questions were answered. Informed consent was obtained. The patient was placed s upine on the ultrasound table and prepped and draped in the usual sterile fashion. All elements of maximal barrier technique were utilized. Under ultrasound guidance, access into the left lower quadrant was obtained, via the paracentesis catheter system and direct ultrasound guidance . The patient was stable throughout the procedure and remained stable upon discharge from Department of Radiology. IMPRESSION: Successful paracentesis under ultrasound guidance.
[2022-06-02 12:02] LABS: Magnesium 1.9 mg/dL (1.6-2.3)
== END 2022-06-02 11:00 | disposition home or self-care (01) ==
LOC: RADPROMAIN 08:03
PROVIDERS: ATTEND Internal Medicine Hematology & Oncology
DX: R18.8 Other ascites (principal)
CPT/HCPCS: 80053; 83735; 85049; 85610; 36415; 49083; P9073; P9047

== ENCOUNTER 2022-06-09 08:14 | Day surgery (SDC) | payer MEDICARE ==
[2022-06-09] MEDS: ALBUMIN HUMAN 25% 50 ML in EMPTY BAG 1 BAG IVPB SCH ×4 (09:03→10:54)
[2022-06-09 09:14] LABS: Prothrombin Time 10.6 sec (9.0-12.0)
[2022-06-09 09:16] LABS: Platelet Count 38 k/uL (150-450)
[2022-06-09 10:59] VITALS: BP 105/69; RESP 16; TEMP 98.2
[2022-06-09 11:01] VITALS: PULSE 69
--- NOTE | 2022-06-09 12:16 | US ---
Ultrasound-guided paracentesis. DATE OF EXAM: 06/09/2022 CLINICAL HISTORY: Ascites The procedure was discussed with the patient. The risks, complications, benefits, and alternatives we re discussed and any questions were answered. Informed consent was obtained. The patient was placed s upine on the ultrasound table and prepped and draped in the usual sterile fashion. All elements of maximal barrier technique were utilized. Under ultrasound guidance, access into the left lower quadrant was obtained, via the paracentesis catheter system and direct ultrasound guidance . Approximately 6.6 liters of straw-colored fluid was removed. The patient was stable throughout the pr ocedure and remained stable upon discharge from Department of Radiology. IMPRESSION: Successful paracentesis under ultrasound guidance.
[2022-06-09 12:20] LABS: Basophils % (A) 2 %; Eosinophils # (A) 0.2 k/uL (0-0.7); Eosinophils % (A) 11 %; HCT 31.7 % (34.0-46.0); HGB 10.2 gm/dL (11.4-16.0); Lymphocytes # (A) 0.3 k/uL (1.0-4.8); Lymphocytes % (A) 19 %; MCH 28.2 pg (25.0-35.0); MCHC 32.3 g/dL (31.0-37.0); MCV 87.3 fL (80.0-100.0); Monocytes # (A) 0.2 k/uL (0-1.0); Monocytes % (A) 12 %; Neutrophils # (A) 0.9 k/uL (1.3-7.7); Neutrophils % (A) 54 %; RBC 3.63 m/uL (3.80-5.40); RDW 15.9 % (11.5-15.5); WBC 1.7 k/uL (3.8-10.6)
[2022-06-09 12:23] LABS: Bilirubin, Delta 0.4 mg/dL (0.0-0.2); Bilirubin,Unconjugated 0.1 mg/dL (0.0-1.1); Calcium 8.3 mg/dL (8.4-10.2); Total Bilirubin 0.5 mg/dL (0.2-1.3); Total Protein 5.2 g/dL (6.3-8.2)
[2022-06-09 12:46] LABS: Platelet Count 38 k/uL (150-450)
[2022-06-09 20:58] LABS: % Iron Saturation 15.88 (12.00-45.00)
== END 2022-06-09 11:44 | disposition home or self-care (01) ==
LOC: RADPROMAIN 08:14
PROVIDERS: ATTEND Internal Medicine Hematology & Oncology
DX: R18.8 Other ascites (principal)
CPT/HCPCS: 80048; 80076; 82728; 82565; 83540; 83550; 84630; 85025; 85610; 82105; 83970; 36415; 49083; P9073; P9047; 85049

== ENCOUNTER 2022-06-16 08:02 | Day surgery (SDC) | payer MEDICARE ==
[2022-06-16 08:29] LABS: Mean Platelet Volume 8.6
[2022-06-16] MEDS: ALBUMIN HUMAN 25% 50 ML in EMPTY BAG 1 BAG IVPB SCH ×4 (08:32→13:03)
[2022-06-16 08:35] LABS: Platelet Count 33 k/uL (150-450)
[2022-06-16 08:37] LABS: Prothrombin Time 10.9 sec (9.0-12.0)
[2022-06-16 12:20] VITALS: TEMP 97.5
[2022-06-16 13:02] VITALS: RESP 16
--- NOTE | 2022-06-16 13:37 | US ---
Ultrasound-guided paracentesis. DATE OF EXAM: 06/16/2022 CLINICAL HISTORY: Ascites The procedure was discussed with the patient. The risks, complications, benefits, and alternatives we re discussed and any questions were answered. Informed consent was obtained. The patient was placed s upine on the ultrasound table and prepped and draped in the usual sterile fashion. All elements of maximal barrier technique were utilized. Under ultrasound guidance, access into the right lower quadrant was obtained, via the paracentesis catheter system and direct ultrasound guidanc e. The patient was stable throughout the procedure and remained stable upon discharge from Department of Radiology. IMPRESSION: Successful paracentesis under ultrasound guidance.
[2022-06-16 13:39] VITALS: BP 112/70; PULSE 74
== END 2022-06-16 13:39 | disposition home or self-care (01) ==
LOC: RADPROMAIN 08:02
PROVIDERS: ATTEND Internal Medicine Hematology & Oncology
DX: R18.8 Other ascites (principal)
CPT/HCPCS: 82565; 85049; 85610; 36415; 49083; P9073; P9047

== ENCOUNTER 2022-06-23 08:12 | Day surgery (SDC) | payer MEDICARE ==
[2022-06-23 08:35] VITALS: RESP 16
[2022-06-23 08:39] LABS: Mean Platelet Volume 9.4
[2022-06-23] MEDS: ALBUMIN HUMAN 25% 50 ML in EMPTY BAG 1 BAG IVPB SCH ×3 (08:41→11:28)
[2022-06-23 08:42] LABS: Platelet Count 35 k/uL (150-450)
[2022-06-23 08:45] LABS: Prothrombin Time 10.6 sec (9.0-12.0)
[2022-06-23 11:23] VITALS: TEMP 97.4
--- NOTE | 2022-06-23 11:44 | US ---
Ultrasound-guided paracentesis. DATE OF EXAM: 06/23/2022 CLINICAL HISTORY: ascites The procedure was discussed with the patient. The risks, complications, benefits, and alternatives we re discussed and any questions were answered. Informed consent was obtained. The patient was placed s upine on the ultrasound table and prepped and draped in the usual sterile fashion. All elements of maximal barrier technique were utilized. Under ultrasound guidance, access into the right lower quadrant was obtained, via the paracentesis catheter system and direct ultrasound guidanc e. The patient was stable throughout the procedure and remained stable upon discharge from Department of Radiology. IMPRESSION: Successful paracentesis under ultrasound guidance.
[2022-06-23 11:53] VITALS: BP 118/57; PULSE 78
== END 2022-06-23 11:55 | disposition home or self-care (01) ==
LOC: RADPROMAIN 08:12
PROVIDERS: ATTEND Internal Medicine Hematology & Oncology
DX: R18.8 Other ascites (principal)
CPT/HCPCS: 82565; 85049; 85610; 49083; P9073; P9047

== ENCOUNTER 2022-06-30 08:05 | Day surgery (SDC) | payer MEDICARE ==
[2022-06-30 08:42] LABS: Mean Platelet Volume 9.3
[2022-06-30] MEDS: ALBUMIN HUMAN 25% 50 ML in EMPTY BAG 1 BAG IVPB SCH ×4 (08:42→11:36)
[2022-06-30 09:02] LABS: Platelet Count 32 k/uL (150-450)
[2022-06-30 09:17] LABS: Prothrombin Time 10.1 sec (9.0-12.0)
[2022-06-30 10:29] VITALS: TEMP 97.5
[2022-06-30 11:35] VITALS: BP 119/69; PULSE 69; RESP 18
--- NOTE | 2022-06-30 12:07 | US ---
Ultrasound-guided paracentesis. DATE OF EXAM: 06/30/2022 CLINICAL HISTORY: Ascites The procedure was discussed with the patient. The risks, complications, benefits, and alternatives we re discussed and any questions were answered. Informed consent was obtained. The patient was placed s upine on the ultrasound table and prepped and draped in the usual sterile fashion. All elements of maximal barrier technique were utilized. Under ultrasound guidance, access into the left lower quadrant was obtained, via the paracentesis catheter system and direct ultrasound guidance . Approximately 6.2 liters of straw-colored fluid was removed. The patient was stable throughout the pr ocedure and remained stable upon discharge from Department of Radiology. IMPRESSION: Successful, uncomplicated ultrasound-guided paracentesis with a total of 6.2 L of clear, serous fluid removed.
== END 2022-06-30 11:25 | disposition home or self-care (01) ==
LOC: RADPROMAIN 08:05
PROVIDERS: ATTEND Internal Medicine Hematology & Oncology
DX: R18.8 Other ascites (principal)
CPT/HCPCS: 82565; 85049; 85610; 36415; 49083; P9073; P9047

== ENCOUNTER 2022-07-07 08:05 | Day surgery (SDC) | payer MEDICARE ==
[2022-07-07 08:43] VITALS: RESP 16
[2022-07-07] MEDS: ALBUMIN HUMAN 25% 50 ML in EMPTY BAG 1 BAG IVPB SCH ×4 (08:44→11:05)
[2022-07-07 08:45] LABS: Mean Platelet Volume 9.4
[2022-07-07 08:49] LABS: Platelet Count 42 k/uL (150-450)
[2022-07-07 08:55] LABS: Prothrombin Time 10.4 sec (9.0-12.0)
--- NOTE | 2022-07-07 10:07 | US ---
Ultrasound-guided paracentesis. DATE OF EXAM: 07/07/2022 CLINICAL HISTORY: 06/30/2022 The procedure was discussed with the patient. The risks, complications, benefits, and alternatives we re discussed and any questions were answered. Informed consent was obtained. The patient was placed s upine on the ultrasound table and prepped and draped in the usual sterile fashion. All elements of maximal barrier technique were utilized. Under ultrasound guidance, access into the right lower quadrant was obtained, via the paracentesis catheter system and direct ultrasound guidanc e. The patient was stable throughout the procedure and remained stable upon discharge from Department of Radiology. IMPRESSION: Successful paracentesis under ultrasound guidance.
[2022-07-07 10:16] VITALS: TEMP 97.7
[2022-07-07 10:44] VITALS: BP 123/65; PULSE 71
== END 2022-07-07 11:12 | disposition home or self-care (01) ==
LOC: RADPROMAIN 08:05
PROVIDERS: ATTEND Internal Medicine Hematology & Oncology
DX: R18.8 Other ascites (principal)
CPT/HCPCS: 82565; 85049; 85610; 49083; P9073; P9047

== ENCOUNTER 2022-07-21 08:09 | Day surgery (SDC) | payer MEDICARE ==
[2022-07-21 08:33] VITALS: RESP 16
[2022-07-21 08:50] LABS: Prothrombin Time 10.5 sec (9.0-12.0)
[2022-07-21] MEDS: ALBUMIN HUMAN 25% 50 ML in EMPTY BAG 1 BAG IVPB SCH ×3 (08:50→10:42)
[2022-07-21 08:56] LABS: Mean Platelet Volume 7.7
[2022-07-21 09:01] LABS: Platelet Count 35 k/uL (150-450)
[2022-07-21 10:36] VITALS: TEMP 97.9
[2022-07-21 11:10] VITALS: BP 115/64; PULSE 79
--- NOTE | 2022-07-21 12:34 | US ---
Ultrasound-guided paracentesis. DATE OF EXAM: 07/21/2022 CLINICAL HISTORY: Ascites The procedure was discussed with the patient. The risks, complications, benefits, and alternatives we re discussed and any questions were answered. Informed consent was obtained. The patient was placed s upine on the ultrasound table and prepped and draped in the usual sterile fashion. All elements of maximal barrier technique were utilized. Under ultrasound guidance, access into the right lower quadrant was obtained, via the paracentesis catheter system and direct ultrasound guidanc e. Approximately 7.7 liters of straw-colored fluid was removed. The patient was stable throughout the pr ocedure and remained stable upon discharge from Department of Radiology. IMPRESSION: Successful paracentesis under ultrasound guidance.
== END 2022-07-21 11:25 | disposition home or self-care (01) ==
LOC: RADPROMAIN 08:09
PROVIDERS: ATTEND Internal Medicine Hematology & Oncology
DX: R18.8 Other ascites (principal)
CPT/HCPCS: 82565; 85049; 85610; 36415; 49083; P9073; P9047

== ENCOUNTER 2022-07-28 08:03 | Day surgery (SDC) | payer MEDICARE ==
[2022-07-28 12:23] VITALS: TEMP 97.6
[2022-07-28 12:28] LABS: Mean Platelet Volume 8.1
[2022-07-28] MEDS: ALBUMIN HUMAN 25% 50 ML in EMPTY BAG 1 BAG IVPB SCH ×3 (12:35→14:20)
[2022-07-28 12:46] LABS: Prothrombin Time 10.6 sec (9.0-12.0)
[2022-07-28 12:48] LABS: Platelet Count 31 k/uL (150-450)
[2022-07-28 13:27] VITALS: RESP 16
[2022-07-28 14:12] VITALS: PULSE 79
[2022-07-28 14:56] VITALS: BP 120/64
--- NOTE | 2022-07-29 08:21 | US ---
Ultrasound-guided paracentesis. DATE OF EXAM: 07/28/2022 CLINICAL HISTORY: Ascites The procedure was discussed with the patient. The risks, complications, benefits, and alternatives we re discussed and any questions were answered. Informed consent was obtained. The patient was placed s upine on the ultrasound table and prepped and draped in the usual sterile fashion. All elements of maximal barrier technique were utilized. Under ultrasound guidance, access into the right lower quadrant was obtained, via the paracentesis catheter system and direct ultrasound guidanc e. Approximately 7 liters of straw-colored fluid was removed. The patient was stable throughout the proc edure and remained stable upon discharge from Department of Radiology. IMPRESSION: Successful paracentesis under ultrasound guidance.
== END 2022-07-28 14:45 | disposition home or self-care (01) ==
LOC: RADPROMAIN 08:03
PROVIDERS: ATTEND Internal Medicine Hematology & Oncology
DX: R18.8 Other ascites (principal)
CPT/HCPCS: 82565; 85049; 85610; 36415; 49083; P9073; P9047

== ENCOUNTER 2022-08-04 08:01 | Day surgery (SDC) | payer MEDICARE ==
[2022-08-04 08:36] LABS: Mean Platelet Volume 9.1
[2022-08-04 08:40] LABS: Platelet Count 42 k/uL (150-450)
[2022-08-04 08:44] LABS: Prothrombin Time 10.6 sec (9.0-12.0)
[2022-08-04] MEDS: ALBUMIN HUMAN 25% 50 ML in EMPTY BAG 1 BAG IVPB SCH ×4 (08:53→10:58)
[2022-08-04 09:43] VITALS: TEMP 98
[2022-08-04 10:32] VITALS: RESP 15
[2022-08-04 11:01] VITALS: BP 110/69; PULSE 65
--- NOTE | 2022-08-04 13:26 | US ---
EXAMINATION TYPE: US paracentesis abd w/image DATE OF EXAM: 08/04/2022 CLINICAL HISTORY: 71-year-old female R1 8.8, with ascites, here for weekly paracentesis The procedure was discussed with the patient. The risks, complications, benefits, and alternatives we re discussed and any questions were answered. Informed consent was obtained. The patient was placed s upine on the ultrasound table and prepped and draped in the usual sterile fashion. All elements of maximal barrier technique were utilized. 1% local lidocaine was utilized for skin an esthesia. Ultrasound was utilized to determine the precise skin entry site along the right lower quadrant. Utilizing trocar technique, a 6 Burmese safety centesis catheter was utilized to gain access into the right lower quadrant ascites fluid. Approximately 7.8 liters of clear, straw-colored fluid was removed. Catheter removed, hemostasis obtained, and a bandage placed. The patient was stable throughout the procedure and remained stable upon discharge from Department of Radiology. IMPRESSION: Successful therapeutic paracentesis under ultrasound guidance. 7.8 L of fluid removed.
== END 2022-08-04 11:02 | disposition home or self-care (01) ==
LOC: RADPROMAIN 08:01
PROVIDERS: ATTEND Internal Medicine Hematology & Oncology
DX: R18.8 Other ascites (principal)
CPT/HCPCS: 82565; 85049; 85610; 36415; 49083; P9073; P9047

== ENCOUNTER 2022-08-12 08:02 | Day surgery (SDC) | payer MEDICARE ==
[2022-08-12 08:25] VITALS: RESP 16
[2022-08-12 08:46] LABS: Mean Platelet Volume 7.9
[2022-08-12 08:55] LABS: Platelet Count 37 k/uL (150-450)
[2022-08-12 08:56] LABS: INR 0.9 (<1.2); Prothrombin Time 9.9 sec (9.0-12.0)
[2022-08-12] MEDS: ALBUMIN HUMAN 25% 50 ML in EMPTY BAG 1 BAG IVPB SCH ×4 (09:05→11:11)
[2022-08-12 10:02] VITALS: TEMP 97.6
[2022-08-12 11:13] VITALS: BP 107/55; PULSE 75
--- NOTE | 2022-08-12 11:37 | US ---
Ultrasound-guided paracentesis. DATE OF EXAM: 08/12/2022 CLINICAL HISTORY: Ascites The procedure was discussed with the patient. The risks, complications, benefits, and alternatives we re discussed and any questions were answered. Informed consent was obtained. The patient was placed s upine on the ultrasound table and prepped and draped in the usual sterile fashion. All elements of maximal barrier technique were utilized. Under ultrasound guidance, access into the right lower quadrant was obtained, via the paracentesis catheter system and direct ultrasound guidanc e. Approximately 7.1 liters of straw-colored fluid was removed. The patient was stable throughout the pr ocedure and remained stable upon discharge from Department of Radiology. IMPRESSION: Successful paracentesis under ultrasound guidance.
== END 2022-08-12 11:25 | disposition home or self-care (01) ==
LOC: RADPROMAIN 08:02
PROVIDERS: ATTEND Internal Medicine Hematology & Oncology
DX: R18.8 Other ascites (principal)
CPT/HCPCS: 82565; 85049; 85610; 36430; 49083; P9073; P9047

== ENCOUNTER 2022-08-18 08:02 | Day surgery (SDC) | payer MEDICARE ==
[2022-08-18 08:38] LABS: Mean Platelet Volume 9.5
[2022-08-18 08:40] VITALS: RESP 16
[2022-08-18 08:43] LABS: Platelet Count 33 k/uL (150-450)
[2022-08-18 08:44] LABS: Prothrombin Time 10.5 sec (9.0-12.0)
[2022-08-18 08:49] LABS: African American GFR (CKD) 22 (>60 ml/min/1.73 sqM); Non-African American GFR(CKD) 20 (>60 ml/min/1.73 sqM)
[2022-08-18] MEDS: ALBUMIN HUMAN 25% 50 ML in EMPTY BAG 1 BAG IVPB SCH ×4 (08:58→12:00)
[2022-08-18 09:27] VITALS: TEMP 97.7
[2022-08-18 12:06] VITALS: BP 105/66; PULSE 69
--- NOTE | 2022-08-18 12:36 | US ---
Ultrasound-guided paracentesis. DATE OF EXAM: 08/18/2022 CLINICAL HISTORY: Ascites The procedure was discussed with the patient. The risks, complications, benefits, and alternatives we re discussed and any questions were answered. Informed consent was obtained. The patient was placed s upine on the ultrasound table and prepped and draped in the usual sterile fashion. All elements of maximal barrier technique were utilized. Under ultrasound guidance, access into the left lower quadrant was obtained, via the paracentesis catheter system and direct ultrasound guidance . Approximately 8 liters of straw-colored fluid was removed. The patient was stable throughout the proc edure and remained stable upon discharge from Department of Radiology. IMPRESSION: Successful paracentesis under ultrasound guidance.
== END 2022-08-18 11:33 | disposition home or self-care (01) ==
LOC: RADPROMAIN 08:02
PROVIDERS: ATTEND Internal Medicine Hematology & Oncology
DX: R18.8 Other ascites (principal)
CPT/HCPCS: 82565; 85049; 85610; 36430; 36415; 49083; P9073; P9047

== ENCOUNTER 2022-08-25 08:02 | Day surgery (SDC) | payer MEDICARE ==
[2022-08-25 08:33] LABS: Mean Platelet Volume 9.8
[2022-08-25 08:35] LABS: Prothrombin Time 10.1 sec (9.0-12.0)
[2022-08-25 08:42] LABS: Platelet Count 35 k/uL (150-450)
[2022-08-25] MEDS: ALBUMIN HUMAN 25% 50 ML in EMPTY BAG 1 BAG IVPB SCH ×3 (08:45→10:35)
[2022-08-25 08:49] VITALS: RESP 16
[2022-08-25 08:52] LABS: African American GFR (CKD) 23 (>60 ml/min/1.73 sqM); Non-African American GFR(CKD) 20 (>60 ml/min/1.73 sqM)
[2022-08-25 10:14] VITALS: TEMP 97.8
--- NOTE | 2022-08-25 10:48 | US ---
Ultrasound-guided paracentesis. DATE OF EXAM: 08/25/2022 CLINICAL HISTORY: Ascites The procedure was discussed with the patient. The risks, complications, benefits, and alternatives we re discussed and any questions were answered. Informed consent was obtained. The patient was placed s upine on the ultrasound table and prepped and draped in the usual sterile fashion. All elements of maximal barrier technique were utilized. Under ultrasound guidance, access into the right lower quadrant was obtained, via the paracentesis catheter system and direct ultrasound guidanc e. Approximately 8 liters of straw-colored fluid was removed. The patient was stable throughout the proc edure and remained stable upon discharge from Department of Radiology. IMPRESSION: Successful paracentesis under ultrasound guidance.
[2022-08-25 10:49] VITALS: BP 119/67; PULSE 68
== END 2022-08-25 10:59 | disposition home or self-care (01) ==
LOC: RADPROMAIN 08:02
PROVIDERS: ATTEND Internal Medicine Hematology & Oncology
DX: R18.8 Other ascites (principal)
CPT/HCPCS: 82565; 85049; 85610; 36430; 36415; 49083; P9073; P9047

== ENCOUNTER 2022-09-01 07:53 | Day surgery (SDC) | payer MEDICARE ==
[2022-09-01 08:44] LABS: Mean Platelet Volume 9.1
[2022-09-01 08:47] LABS: Platelet Count 35 k/uL (150-450)
[2022-09-01 08:49] LABS: African American GFR (CKD) 24 (>60 ml/min/1.73 sqM); Non-African American GFR(CKD) 21 (>60 ml/min/1.73 sqM)
[2022-09-01 08:58] VITALS: TEMP 98.1
[2022-09-01 09:05] LABS: Prothrombin Time 10.2 sec (9.0-12.0)
[2022-09-01] MEDS: ALBUMIN HUMAN 25% 50 ML in EMPTY BAG 1 BAG IVPB SCH ×4 (09:08→10:46)
[2022-09-01 10:03] VITALS: RESP 18
[2022-09-01 11:21] VITALS: BP 107/62; PULSE 73
--- NOTE | 2022-09-01 12:50 | US ---
EXAMINATION TYPE: US paracentesis abd w/image DATE OF EXAM: 09/01/2022 10:21 AM CLINICAL INDICATION:Female, 71 years old with history of ascites; COMPARISON: 08/25/2022 ATTENDING: Dr. Selvin Meadows PROCEDURE: Informed consent was obtained. The risks of the procedure were extensively explained incl uding risk of damage to surrounding bowel with perforation and need for additional procedures. Proced ure was performed in the ultrasound procedure suite. Ultrasound imaging of the abdomen demonstrate as citic fluid. An appropriate access site was localized to the right lower abdomen. Timeout was taken p er protocol. The skin was prepped and draped in the usual sterile fashion and then locally anesthetiz ed with 1% lidocaine. The peritoneal cavity was then accessed via a 5-Japanese one-step needle/cathete r. Approximately 6400 cc of clear straw-colored fluid was obtained. Postprocedural imaging of the ab domen demonstrate a minimal amount of abdominal fluid. Patient tolerated procedure well without immediate complication. Hemostasis at the procedural site w as obtained with a sterile bandage placed. The patient was monitored in the holding area following th e procedure and was subsequently discharged in stable condition. IMPRESSION: Ultrasound guided paracentesis, with approximately 2400 cc of clear straw-colored fluid drained. . No immediate complications were evident.
== END 2022-09-01 11:05 | disposition home or self-care (01) ==
LOC: RADPROMAIN 07:53
PROVIDERS: ATTEND Internal Medicine Hematology & Oncology
DX: R18.8 Other ascites (principal)
CPT/HCPCS: 82565; 85049; 85610; 36430; 36415; 49083; P9073; P9047

== ENCOUNTER 2022-09-08 08:02 | Day surgery (SDC) | payer MEDICARE ==
[2022-09-08 08:37] LABS: Mean Platelet Volume 9.6
[2022-09-08 08:48] LABS: Prothrombin Time 10.4 sec (9.0-12.0)
[2022-09-08 08:55] LABS: African American GFR (CKD) 23 (>60 ml/min/1.73 sqM); Non-African American GFR(CKD) 20 (>60 ml/min/1.73 sqM)
[2022-09-08 09:02] LABS: Platelet Count 39 k/uL (150-450)
[2022-09-08] MEDS: ALBUMIN HUMAN 25% 50 ML in EMPTY BAG 1 BAG IVPB SCH ×4 (09:04→11:08)
[2022-09-08 11:01] VITALS: BP 118/71
[2022-09-08 11:02] VITALS: PULSE 70; RESP 16; TEMP 98
--- NOTE | 2022-09-08 11:35 | US ---
EXAMINATION TYPE: US paracentesis abd w/image DATE OF EXAM: 09/08/2022 CLINICAL INDICATION:Female, 71 years old with history of ascites; COMPARISON: 09/01/2022 PROCEDURE: Informed consent was obtained. The risks of the procedure were extensively explained incl uding risk of damage to surrounding bowel with perforation and need for additional procedures. Proced ure was performed in the ultrasound procedure suite. Ultrasound imaging of the abdomen demonstrate as citic fluid. An appropriate access site was localized to the right lower abdomen. Timeout was taken p er protocol. The skin was prepped and draped in the usual sterile fashion and then locally anesthetiz ed with 1% lidocaine. The peritoneal cavity was then accessed via a 5-Estonian one-step needle/cathete r. Approximately 7.5 liters of clear straw-colored fluid was obtained. Patient tolerated procedure well without immediate complication. Hemostasis at the procedural site w as obtained with a sterile bandage placed. The patient was monitored in the holding area following th e procedure and was subsequently discharged in stable condition. IMPRESSION: Ultrasound guided paracentesis, with approximately 7.5 L of clear straw-colored fluid drained. No imm ediate complications were evident.
== END 2022-09-08 11:35 | disposition home or self-care (01) ==
LOC: RADPROMAIN 08:02
PROVIDERS: ATTEND Internal Medicine Hematology & Oncology
DX: R18.8 Other ascites (principal)
CPT/HCPCS: 82565; 85049; 85610; 36430; 36415; 49083; P9073; P9047

== ENCOUNTER 2022-09-15 08:03 | Day surgery (SDC) | payer MEDICARE ==
[2022-09-15 08:30] VITALS: RESP 16
[2022-09-15 08:35] LABS: Mean Platelet Volume 9.3
[2022-09-15 08:39] LABS: Platelet Count 35 k/uL (150-450)
[2022-09-15] MEDS: ALBUMIN HUMAN 25% 50 ML in EMPTY BAG 1 BAG IVPB SCH ×4 (08:42→11:09)
[2022-09-15 08:46] LABS: African American GFR (CKD) 21 (>60 ml/min/1.73 sqM); Non-African American GFR(CKD) 18 (>60 ml/min/1.73 sqM)
[2022-09-15 08:51] LABS: Prothrombin Time 10.2 sec (9.0-12.0)
[2022-09-15 10:28] VITALS: TEMP 97.6
[2022-09-15 10:54] VITALS: BP 102/61; PULSE 73
--- NOTE | 2022-09-15 11:51 | US ---
Ultrasound-guided paracentesis. DATE OF EXAM: 09/15/2022 CLINICAL HISTORY: Ascites The procedure was discussed with the patient. The risks, complications, benefits, and alternatives we re discussed and any questions were answered. Informed consent was obtained. The patient was placed s upine on the ultrasound table and prepped and draped in the usual sterile fashion. All elements of maximal barrier technique were utilized. Under ultrasound guidance, access into the right lower quadrant was obtained, via the paracentesis catheter system and direct ultrasound guidanc e. Approximately 7.1 liters of straw-colored fluid was removed. The patient was stable throughout the pr ocedure and remained stable upon discharge from Department of Radiology. IMPRESSION: Successful paracentesis under ultrasound guidance.
== END 2022-09-15 11:15 | disposition home or self-care (01) ==
LOC: RADPROMAIN 08:03
PROVIDERS: ATTEND Internal Medicine Hematology & Oncology
DX: R18.8 Other ascites (principal)
CPT/HCPCS: 82565; 85049; 85610; 36430; 36415; 49083; P9073; P9047

== ENCOUNTER 2022-09-22 08:03 | Day surgery (SDC) | payer MEDICARE ==
[2022-09-22 08:34] LABS: Mean Platelet Volume 9.4
[2022-09-22 08:37] LABS: Platelet Count 35 k/uL (150-450)
[2022-09-22 08:43] LABS: Prothrombin Time 10.3 sec (9.0-12.0)
[2022-09-22] MEDS: ALBUMIN HUMAN 25% 50 ML in EMPTY BAG 1 BAG IVPB SCH ×4 (08:49→10:41)
[2022-09-22 08:53] LABS: African American GFR (CKD) 22 (>60 ml/min/1.73 sqM); Non-African American GFR(CKD) 19 (>60 ml/min/1.73 sqM)
[2022-09-22 09:30] VITALS: RESP 16
[2022-09-22 09:32] VITALS: TEMP 97.7
[2022-09-22 10:51] VITALS: BP 112/58; PULSE 67
--- NOTE | 2022-09-22 11:16 | US ---
Ultrasound-guided paracentesis. DATE OF EXAM: 09/22/2022 CLINICAL HISTORY: Ascites The procedure was discussed with the patient. The risks, complications, benefits, and alternatives we re discussed and any questions were answered. Informed consent was obtained. The patient was placed s upine on the ultrasound table and prepped and draped in the usual sterile fashion. All elements of maximal barrier technique were utilized. Under ultrasound guidance, access into the right lower quadrant was obtained, via the paracentesis catheter system and direct ultrasound guidanc e. Approximately 7 liters of straw-colored fluid was removed. The patient was stable throughout the proc edure and remained stable upon discharge from Department of Radiology. IMPRESSION: Successful paracentesis under ultrasound guidance.
== END 2022-09-22 11:00 | disposition home or self-care (01) ==
LOC: RADPROMAIN 08:03
PROVIDERS: ATTEND Internal Medicine Hematology & Oncology
DX: R18.8 Other ascites (principal)
CPT/HCPCS: 82565; 85049; 85610; 36430; 36415; 49083; P9073; P9047

== ENCOUNTER 2022-09-29 08:03 | Day surgery (SDC) | payer MEDICARE ==
[2022-09-29 08:39] LABS: Mean Platelet Volume 8.5
[2022-09-29 08:41] LABS: Platelet Count 35 k/uL (150-450)
[2022-09-29 08:47] LABS: African American GFR (CKD) 22 (>60 ml/min/1.73 sqM); Non-African American GFR(CKD) 20 (>60 ml/min/1.73 sqM); Prothrombin Time 10.5 sec (9.0-12.0)
[2022-09-29] MEDS: ALBUMIN HUMAN 25% 50 ML in EMPTY BAG 1 BAG IVPB SCH ×4 (10:00→10:25)
[2022-09-29 10:17] VITALS: RESP 15
[2022-09-29 10:18] VITALS: BP 102/60; PULSE 70; TEMP 98.8
--- NOTE | 2022-09-29 11:19 | US ---
Ultrasound-guided paracentesis. DATE OF EXAM: 09/29/2022 CLINICAL HISTORY: Ascites The procedure was discussed with the patient. The risks, complications, benefits, and alternatives we re discussed and any questions were answered. Informed consent was obtained. The patient was placed s upine on the ultrasound table and prepped and draped in the usual sterile fashion. All elements of maximal barrier technique were utilized. Under ultrasound guidance, access into the right lower quadrant was obtained, via the paracentesis catheter system and direct ultrasound guidanc e. Approximately 7 liters of straw-colored fluid was removed. The patient was stable throughout the proc edure and remained stable upon discharge from Department of Radiology. IMPRESSION: Successful paracentesis under ultrasound guidance.
== END 2022-09-29 10:41 | disposition home or self-care (01) ==
LOC: RADPROMAIN 08:03
PROVIDERS: ATTEND Internal Medicine Hematology & Oncology
DX: R18.8 Other ascites (principal)
CPT/HCPCS: 82565; 85049; 85610; 36430; 36415; 49083; P9073; P9047

== ENCOUNTER 2022-10-06 08:03 | Day surgery (SDC) | payer MEDICARE ==
[2022-10-06 08:38] LABS: Mean Platelet Volume 8.5
[2022-10-06 08:40] VITALS: TEMP 97.8
[2022-10-06 08:44] LABS: Platelet Count 35 k/uL (150-450)
[2022-10-06 08:46] LABS: Prothrombin Time 10.6 sec (9.0-12.0)
[2022-10-06 08:50] LABS: African American GFR (CKD) 25 (>60 ml/min/1.73 sqM); Non-African American GFR(CKD) 22 (>60 ml/min/1.73 sqM)
[2022-10-06] MEDS: ALBUMIN HUMAN 25% 50 ML in EMPTY BAG 1 BAG IVPB SCH ×3 (08:55→10:57)
--- NOTE | 2022-10-06 10:44 | US ---
INDICATION: Patient age:Female; 72 years old; Reason for study: R18.8 ascites; [facility]. COMPARISON: Ultrasound guided paracentesis 09/29/2022 PROCEDURE: Informed consent was obtained. The risks of the procedure were extensively explained incl uding risk of damage to surrounding bowel with perforation and need for additional procedures. Proced ure was performed in the ultrasound procedure suite. Ultrasound imaging of the abdomen demonstrate as citic fluid. An appropriate access site was localized to the left lower abdomen. Timeout was taken pe r protocol. The skin was prepped and draped in the usual sterile fashion and then locally anesthetize d with 1% lidocaine. The peritoneal cavity was then accessed via a 5-Faroese one-step needle/catheter . Approximately 6.8 liters of clear straw-colored fluid was obtained. Patient tolerated procedure well without immediate complication. Hemostasis at the procedural site w as obtained with a sterile bandage placed. The patient was monitored in the holding area following th e procedure and was subsequently discharged in stable condition. IMPRESSION: Ultrasound guided paracentesis, with maximal a 6.8 L of clear straw-colored fluid drained. No immedia te complications were evident.
[2022-10-06 10:56] VITALS: BP 117/68; PULSE 70; RESP 18
== END 2022-10-06 10:45 | disposition home or self-care (01) ==
LOC: RADPROMAIN 08:03
PROVIDERS: ATTEND Internal Medicine Hematology & Oncology
DX: R18.8 Other ascites (principal)
CPT/HCPCS: 82565; 85049; 85610; 36430; 36415; 49083; P9073; P9047

== ENCOUNTER 2022-10-13 08:03 | Day surgery (SDC) | payer MEDICARE ==
[2022-10-13 08:34] VITALS: RESP 16
[2022-10-13 08:46] LABS: Platelet Count 33 k/uL (150-450)
[2022-10-13 08:47] LABS: INR 0.9 (<1.2); Prothrombin Time 10.1 sec (9.0-12.0)
[2022-10-13 08:50] LABS: African American GFR (CKD) 23 (>60 ml/min/1.73 sqM); Non-African American GFR(CKD) 20 (>60 ml/min/1.73 sqM)
[2022-10-13] MEDS: ALBUMIN HUMAN 25% 50 ML in EMPTY BAG 1 BAG IVPB SCH ×4 (09:00→11:09)
[2022-10-13 11:02] VITALS: TEMP 97.4
[2022-10-13 11:17] VITALS: BP 114/57; PULSE 71
--- NOTE | 2022-10-13 12:07 | US ---
Ultrasound-guided paracentesis. DATE OF EXAM: 10/13/2022 CLINICAL HISTORY: Ascites The procedure was discussed with the patient. The risks, complications, benefits, and alternatives we re discussed and any questions were answered. Informed consent was obtained. The patient was placed s upine on the ultrasound table and prepped and draped in the usual sterile fashion. All elements of maximal barrier technique were utilized. Under ultrasound guidance, access into the left lower quadrant was obtained, via the paracentesis catheter system and direct ultrasound guidance . Approximately 6.65 liters of straw-colored fluid was removed. The patient was stable throughout the p rocedure and remained stable upon discharge from Department of Radiology. IMPRESSION: Successful paracentesis under ultrasound guidance.
== END 2022-10-13 11:25 | disposition home or self-care (01) ==
LOC: RADPROMAIN 08:03
PROVIDERS: ATTEND Internal Medicine Hematology & Oncology
DX: R18.8 Other ascites (principal)
CPT/HCPCS: 82565; 85049; 85610; 49083; P9073; P9047

== ENCOUNTER 2022-10-20 08:06 | Day surgery (SDC) | payer MEDICARE ==
[2022-10-20] MEDS: ALBUMIN HUMAN 25% 50 ML in EMPTY BAG 1 BAG IVPB SCH ×4 (08:58→10:56)
[2022-10-20 09:03] LABS: Mean Platelet Volume 9.3; Platelet Count 37 k/uL (150-450)
[2022-10-20 09:09] LABS: African American GFR (CKD) 24 (>60 ml/min/1.73 sqM); Non-African American GFR(CKD) 21 (>60 ml/min/1.73 sqM)
[2022-10-20 09:10] LABS: Prothrombin Time 10.3 sec (9.0-12.0)
[2022-10-20 10:24] VITALS: PULSE 65; TEMP 98
[2022-10-20 10:38] VITALS: BP 107/55; RESP 16
--- NOTE | 2022-10-20 12:11 | US ---
EXAMINATION TYPE: US paracentesis abd w/image DATE OF EXAM: 10/20/2022 10:00 AM CLINICAL INDICATION:Female, 72 years old with history of R18.8 ascites; COMPARISON: 10/13/2022 ATTENDING: Dr. Selvin Meadows PROCEDURE: Informed consent was obtained. The risks of the procedure were extensively explained incl uding risk of damage to surrounding bowel with perforation and need for additional procedures. Proced ure was performed in the ultrasound procedure suite. Ultrasound imaging of the abdomen demonstrate as citic fluid. An appropriate access site was localized to the right lower abdomen. Timeout was taken p er protocol. The skin was prepped and draped in the usual sterile fashion and then locally anesthetiz ed with 1% lidocaine. The peritoneal cavity was then accessed via a 5-Occitan one-step needle/cathete r. Approximately 6900 cc of clear straw-colored fluid was obtained. Postprocedural imaging of the a bdomen demonstrate a minimal amount of abdominal fluid. Patient tolerated procedure well without immediate complication. Hemostasis at the procedural site w as obtained with a sterile bandage placed. The patient was monitored in the holding area following th e procedure and was subsequently discharged in stable condition. IMPRESSION: Ultrasound guided paracentesis, with approximately 6900 cc of clear straw-colored fluid drained. No i mmediate complications were evident.
== END 2022-10-20 11:00 | disposition home or self-care (01) ==
LOC: RADPROMAIN 08:06
PROVIDERS: ATTEND Internal Medicine Hematology & Oncology
DX: R18.8 Other ascites (principal)
CPT/HCPCS: 82565; 85049; 85610; 36415; 49083; P9073; P9047

== ENCOUNTER → 2022-10-20 | Outpatient (CLI) | payer MEDICARE ==
--- NOTE | 2022-10-21 10:19 | CA ---
Transthoracic Echo Report Name: Molly Cedeno Age: 72 Gender: F : 1950 Exam Date: 10/20/2022 11:11 Exam Location: [place] Echo Ht (in): 62 Wt (lb): 135 Ordering Physician: Naina Navarro MD Attending/Referring Phys: Range Scientist Deepika Jimenez [facility] Procedure CPT: Indications: K76.6 PORTAL HYPERTENSION Cardiac Hx: Technical Quality: Fair Contrast 1: Total Dose (mL): Contrast 2: Total Dose (mL): MEASUREMENTS (Male / Female) Normal Values 2D ECHO LV Diastolic Diameter PLAX 4.2 cm 4.2 - 5.9 / 3.9 - 5.3 cm LV Systolic Diameter PLAX 2.1 cm IVS Diastolic Thickness 0.8 cm 0.6 - 1.0 / 0.6 - 0.9 cm LVPW Diastolic Thickness 0.7 cm 0.6 - 1.0 / 0.6 - 0.9 cm LV Relative Wall Thickness 0.4 LVOT Diameter 2.0 cm Aortic Root Diameter 3.7 cm Ascending Aorta Diameter 3.6 cm M-MODE Aortic Root Diameter MM 3.0 cm LA Systolic Diameter MM 3.5 cm LA Ao Ratio MM 1.1 AV Cusp Separation MM 2.3 cm DOPPLER AV Peak Velocity 190.0 cm/s AV Peak Gradient 14.4 mmHg AV Mean Velocity 138.8 cm/s AV Mean Gradient 8.3 mmHg AV Velocity Time Integral 43.7 cm LVOT Peak Velocity 174.0 cm/s LVOT Peak Gradient 12.1 mmHg LVOT Velocity Time Integral 40.8 cm LVOT Stroke Volume 122.9 cm??? LVOT Stroke Volume Index 76.0 ml/m??? LVOT Cardiac Index 5069.9 cm???/min???m??? AV Area Cont Eq vti 2.8 cm??? AV Area Cont Eq pk 2.8 cm??? MV Peak Velocity 163.3 cm/s MV Peak Gradient 10.7 mmHg MV Mean Velocity 94.4 cm/s MV Mean Gradient 4.1 mmHg MV Velocity Time Integral 37.9 cm Mitral E Point Velocity 95.5 cm/s Mitral A Point Velocity 106.3 cm/s Mitral E to A Ratio 0.9 MV Deceleration Time 292.6 ms LV E' Lateral Velocity 9.3 cm/s Mitral E to LV E' Lateral Ratio 10.3 LV E' Septal Velocity 7.2 cm/s Mitral E to LV E' Septal Ratio 13.3 TR Peak Velocity 255.9 cm/s TR Peak Gradient 26.2 mmHg Right Atrial Pressure 3.0 mmHg Pulmonary Artery Systolic Pressu 29.2 mmHg Right Ventricular Systolic Press 29.2 mmHg FINDINGS Left Ventricle Normal Left ventricular size, wall thickness, systolic function with no obvious regional wall motion abnormalities. Left ventricular ejection fraction is estimated at 60-65%. Right Ventricle Normal right ventricular size and function. Right Atrium Normal right atrial size. Left Atrium Severe left atrial dilatation. Mitral Valve Structurally normal mitral valve. Mild mitral regurgitation. Aortic Valve Trileaflet aortic valve. Trace to mild aortic regurgitation. Tricuspid Valve Structurally normal tricuspid valve. [id number]-acfsokof tricuspid regurgitation. Pulmonic Valve Structurally normal pulmonic valve. No pulmonic regurgitation. Pericardium No pericardial effusion. Pleural effusion. Aorta Normal size aortic root and upper normal proximal ascending aorta. CONCLUSIONS Normal LV size and systolic function with mild mitral and tricuspid regurgitation. No significant pulmonary hypertension. No pericardial effusion there is a small pleural effusion noted Previewed by: Dr. Saji Mendez MD (Electronically Signed) Final Date: 21 October 2022 10:18
== END | disposition home or self-care (01) ==
LOC: RADECHMAIN 08:12
PROVIDERS: ATTEND Internal Medicine Hematology & Oncology
DX: I08.3 Combined rheumatic disorders of mitral, aortic and tricuspid valves (principal); K76.6 Portal hypertension
CPT/HCPCS: 93306

== ENCOUNTER 2022-10-27 08:04 | Day surgery (SDC) | payer MEDICARE ==
[2022-10-27 08:51] LABS: Mean Platelet Volume 9.1
[2022-10-27 08:59] LABS: Prothrombin Time 10.6 sec (9.0-12.0)
[2022-10-27 09:02] LABS: African American GFR (CKD) 22 (>60 ml/min/1.73 sqM); Non-African American GFR(CKD) 19 (>60 ml/min/1.73 sqM)
[2022-10-27 09:03] LABS: Platelet Count 28 k/uL (150-450)
[2022-10-27] MEDS: ALBUMIN HUMAN 25% 50 ML in EMPTY BAG 1 BAG IVPB SCH ×4 (09:30→11:14)
[2022-10-27 11:06] VITALS: BP 94/59
[2022-10-27 11:07] VITALS: PULSE 65; RESP 15; TEMP 98.2
--- NOTE | 2022-10-27 14:47 | US ---
Ultrasound-guided paracentesis. DATE OF EXAM: 10/27/2022 CLINICAL HISTORY: Ascites The procedure was discussed with the patient. The risks, complications, benefits, and alternatives we re discussed and any questions were answered. Informed consent was obtained. The patient was placed s upine on the ultrasound table and prepped and draped in the usual sterile fashion. All elements of maximal barrier technique were utilized. Under ultrasound guidance, access into the right lower quadrant was obtained, via the paracentesis catheter system and direct ultrasound guidanc e. Approximately 7 liters of straw-colored fluid was removed. The patient was stable throughout the proc edure and remained stable upon discharge from Department of Radiology. IMPRESSION: Successful paracentesis under ultrasound guidance.
== END 2022-10-27 11:15 | disposition home or self-care (01) ==
LOC: RADPROMAIN 08:04
PROVIDERS: ATTEND Internal Medicine Hematology & Oncology
DX: R18.8 Other ascites (principal)
CPT/HCPCS: 82565; 85049; 85610; 36415; 49083; P9073; P9047

== ENCOUNTER 2022-11-03 08:02 | Day surgery (SDC) | payer MEDICARE ==
[2022-11-03 08:47] LABS: Mean Platelet Volume 8.4
[2022-11-03 08:53] LABS: INR 0.9 (<1.2); Prothrombin Time 10.1 sec (9.0-12.0)
[2022-11-03 08:54] LABS: African American GFR (CKD) 21 (>60 ml/min/1.73 sqM); Non-African American GFR(CKD) 18 (>60 ml/min/1.73 sqM)
[2022-11-03 08:58] VITALS: RESP 16; TEMP 98.1
[2022-11-03 09:13] LABS: Platelet Count 36 k/uL (150-450)
[2022-11-03] MEDS: ALBUMIN HUMAN 25% 50 ML in EMPTY BAG 1 BAG IVPB SCH ×4 (09:22→11:23)
[2022-11-03 11:32] VITALS: BP 110/66; PULSE 79
--- NOTE | 2022-11-03 12:32 | US ---
Ultrasound-guided paracentesis. DATE OF EXAM: 11/03/2022 CLINICAL HISTORY: Ascites The procedure was discussed with the patient. The risks, complications, benefits, and alternatives we re discussed and any questions were answered. Informed consent was obtained. The patient was placed s upine on the ultrasound table and prepped and draped in the usual sterile fashion. All elements of maximal barrier technique were utilized. Under ultrasound guidance, access into the right lower quadrant was obtained, via the paracentesis catheter system and direct ultrasound guidanc e. Approximately 7.5 liters of straw-colored fluid was removed. The patient was stable throughout the pr ocedure and remained stable upon discharge from Department of Radiology. IMPRESSION: Successful paracentesis under ultrasound guidance.
== END 2022-11-03 11:15 | disposition home or self-care (01) ==
LOC: RADPROMAIN 08:02
PROVIDERS: ATTEND Internal Medicine Hematology & Oncology
DX: R18.8 Other ascites (principal)
CPT/HCPCS: 82565; 85049; 85610; 36415; 49083; P9073; P9047

== ENCOUNTER 2022-11-10 08:02 | Day surgery (SDC) | payer MEDICARE ==
[2022-11-10 08:48] LABS: Mean Platelet Volume 9.4
[2022-11-10 08:50] LABS: Platelet Count 36 k/uL (150-450)
[2022-11-10 08:56] LABS: Prothrombin Time 10.9 sec (9.0-12.0)
[2022-11-10 09:04] LABS: African American GFR (CKD) 23 (>60 ml/min/1.73 sqM); Non-African American GFR(CKD) 20 (>60 ml/min/1.73 sqM)
[2022-11-10] MEDS: ALBUMIN HUMAN 25% 50 ML in EMPTY BAG 1 BAG IVPB SCH ×4 (09:10→10:57)
[2022-11-10 10:49] VITALS: TEMP 98
[2022-11-10 10:52] VITALS: BP 116/70; PULSE 64; RESP 15
--- NOTE | 2022-11-10 15:13 | US ---
EXAMINATION TYPE: US paracentesis abd w/image DATE OF EXAM: 11/10/2022 CLINICAL HISTORY: Ascites The procedure was discussed with the patient. The risks, complications, benefits, and alternatives we re discussed and any questions were answered. Informed consent was obtained. The patient was placed s upine on the ultrasound table and prepped and draped in the usual sterile fashion. All elements of maximal barrier technique were utilized. Under ultrasound guidance, access into the right lower quadrant was obtained, via the paracentesis catheter system and direct ultrasound guidanc e. Approximately 6.5 liters of straw-colored fluid was removed. The patient was stable throughout the pr ocedure and remained stable upon discharge from Department of Radiology. IMPRESSION: Successful therapeutic paracentesis under ultrasound guidance.
== END 2022-11-10 11:00 | disposition home or self-care (01) ==
LOC: RADPROMAIN 08:02
PROVIDERS: ATTEND Internal Medicine Hematology & Oncology
DX: R18.8 Other ascites (principal)
CPT/HCPCS: 82565; 85049; 85610; 36415; 49083; P9073; P9047

== ENCOUNTER 2022-11-18 12:19 | Day surgery (SDC) | payer MEDICARE ==
[2022-11-18 12:48] VITALS: RESP 16
[2022-11-18 12:56] LABS: Mean Platelet Volume 10.3
[2022-11-18 13:00] LABS: Platelet Count 35 k/uL (150-450)
[2022-11-18 13:02] LABS: Prothrombin Time 10.8 sec (9.0-12.0)
[2022-11-18] MEDS: ALBUMIN HUMAN 25% 50 ML in EMPTY BAG 1 BAG IVPB SCH ×3 (13:11→14:59)
[2022-11-18 13:19] LABS: African American GFR (CKD) 21 (>60 ml/min/1.73 sqM); Non-African American GFR(CKD) 19 (>60 ml/min/1.73 sqM)
[2022-11-18 14:36] VITALS: TEMP 98.1
[2022-11-18 15:13] VITALS: BP 123/71; PULSE 71
--- NOTE | 2022-11-19 08:30 | US ---
Ultrasound-guided paracentesis. DATE OF EXAM: 11/18/2022 CLINICAL HISTORY: Ascites The procedure was discussed with the patient. The risks, complications, benefits, and alternatives we re discussed and any questions were answered. Informed consent was obtained. The patient was placed s upine on the ultrasound table and prepped and draped in the usual sterile fashion. All elements of maximal barrier technique were utilized. Under ultrasound guidance, access into the right lower quadrant was obtained, via the paracentesis catheter system and direct ultrasound guidanc e. Approximately 7.4 liters of straw-colored fluid was removed. The patient was stable throughout the pr ocedure and remained stable upon discharge from Department of Radiology. IMPRESSION: Successful paracentesis under ultrasound guidance.
== END 2022-11-18 15:39 | disposition home or self-care (01) ==
LOC: RADPROMAIN 12:19
PROVIDERS: ATTEND Internal Medicine Hematology & Oncology
DX: R18.8 Other ascites (principal)
CPT/HCPCS: 82565; 85049; 85610; 36430; 36415; 49083; P9073; P9047

== ENCOUNTER 2022-11-24 07:59 | Day surgery (SDC) | payer MEDICARE ==
[2022-11-24] MEDS: ALBUMIN HUMAN 25% 50 ML in EMPTY BAG 1 BAG IVPB SCH ×3 (08:22→10:27)
[2022-11-24 08:28] VITALS: RESP 16
[2022-11-24 08:31] LABS: Mean Platelet Volume 8.8
[2022-11-24 08:33] LABS: Platelet Count 39 k/uL (150-450)
[2022-11-24 08:42] LABS: African American GFR (CKD) 21 (>60 ml/min/1.73 sqM); Non-African American GFR(CKD) 18 (>60 ml/min/1.73 sqM)
[2022-11-24 08:45] LABS: Prothrombin Time 10.2 sec (9.0-12.0)
[2022-11-24 10:25] VITALS: TEMP 98.1
--- NOTE | 2022-11-24 10:56 | US ---
INDICATION: Patient age:Female; 72 years old; Reason for study: R18.8 OTHER ASCITES; [facility]. COMPARISON: Ultrasound-guided paracentesis 11/18/2022 PROCEDURE: Informed consent was obtained. The risks of the procedure were extensively explained incl uding risk of damage to surrounding bowel with perforation and need for additional procedures. Proced ure was performed in the ultrasound procedure suite. Ultrasound imaging of the abdomen demonstrate as citic fluid. An appropriate access site was localized to the right lower abdomen. Timeout was taken p er protocol. The skin was prepped and draped in the usual sterile fashion and then locally anesthetiz ed with 1% lidocaine. The peritoneal cavity was then accessed via a 5-Guamanian one-step needle/cathete r. Approximately 5.8 liters of clear straw-colored fluid was obtained. Patient tolerated procedure well without immediate complication. Hemostasis at the procedural site w as obtained with a sterile bandage placed. The patient was monitored in the holding area following th e procedure and was subsequently discharged in stable condition. IMPRESSION: Ultrasound guided paracentesis, with approximately 5.8 L of clear straw-colored fluid drained. No imm ediate complications were evident.
[2022-11-24 11:10] VITALS: BP 119/71; PULSE 71
== END 2022-11-24 11:05 | disposition home or self-care (01) ==
LOC: RADPROMAIN 07:59
PROVIDERS: ATTEND Internal Medicine Hematology & Oncology
DX: R18.8 Other ascites (principal)
CPT/HCPCS: 82565; 85049; 85610; 36415; 49083; P9073; P9047

== ENCOUNTER 2022-12-15 07:58 | Day surgery (SDC) | payer MEDICARE ==
[2022-12-15] MEDS: ALBUMIN HUMAN 25% 50 ML in EMPTY BAG 1 BAG IVPB SCH ×3 (08:35→09:06)
[2022-12-15 08:58] LABS: Prothrombin Time 10.4 sec (9.0-12.0)
[2022-12-15 09:02] LABS: African American GFR (CKD) 19 (>60 ml/min/1.73 sqM); Non-African American GFR(CKD) 16 (>60 ml/min/1.73 sqM)
[2022-12-15 09:06] LABS: Platelet Count 34 k/uL (150-450)
[2022-12-15 10:18] VITALS: TEMP 97.9
[2022-12-15 10:39] VITALS: RESP 18
[2022-12-15 11:11] VITALS: BP 102/54; PULSE 77
--- NOTE | 2022-12-15 11:24 | US ---
Ultrasound-guided paracentesis. DATE OF EXAM: 12/15/2022 CLINICAL HISTORY: Ascites The procedure was discussed with the patient. The risks, complications, benefits, and alternatives we re discussed and any questions were answered. Informed consent was obtained. The patient was placed s upine on the ultrasound table and prepped and draped in the usual sterile fashion. All elements of maximal barrier technique were utilized. Under ultrasound guidance, access into the right lower quadrant was obtained, via the paracentesis catheter system and direct ultrasound guidanc e. Approximately 6 liters of straw-colored fluid was removed. The patient was stable throughout the proc edure and remained stable upon discharge from Department of Radiology. IMPRESSION: Successful paracentesis under ultrasound guidance.
== END 2022-12-15 11:06 | disposition home or self-care (01) ==
LOC: RADPROMAIN 07:58
PROVIDERS: ATTEND Internal Medicine Hematology & Oncology
DX: R18.8 Other ascites (principal)
CPT/HCPCS: 82565; 85049; 85610; 36430; 36415; 49083; P9073; P9047

== ENCOUNTER 2022-12-22 07:59 | Day surgery (SDC) | payer MEDICARE ==
[2022-12-22 08:41] LABS: Mean Platelet Volume 9.2
[2022-12-22 08:42] LABS: Platelet Count 41 k/uL (150-450)
[2022-12-22 08:43] LABS: African American GFR (CKD) 23 (>60 ml/min/1.73 sqM); Non-African American GFR(CKD) 20 (>60 ml/min/1.73 sqM); Prothrombin Time 10.5 sec (9.0-12.0)
[2022-12-22] MEDS: ALBUMIN HUMAN 25% 50 ML in EMPTY BAG 1 BAG IVPB SCH ×2 (08:52→09:04)
[2022-12-22 10:04] VITALS: RESP 16
[2022-12-22 10:48] VITALS: PULSE 68; TEMP 97.8
--- NOTE | 2022-12-22 12:20 | US ---
Ultrasound-guided paracentesis. DATE OF EXAM: 12/22/2022 CLINICAL HISTORY: Ascites The procedure was discussed with the patient. The risks, complications, benefits, and alternatives we re discussed and any questions were answered. Informed consent was obtained. The patient was placed s upine on the ultrasound table and prepped and draped in the usual sterile fashion. All elements of maximal barrier technique were utilized. Under ultrasound guidance, access into the right lower quadrant was obtained, via the paracentesis catheter system and direct ultrasound guidanc e. Approximately 4.1 liters of straw-colored fluid was removed. The patient was stable throughout the pr ocedure and remained stable upon discharge from Department of Radiology. IMPRESSION: Successful paracentesis under ultrasound guidance.
[2022-12-22 12:51] VITALS: BP 114/68
== END 2022-12-22 11:20 | disposition home or self-care (01) ==
LOC: RADPROMAIN 07:59
PROVIDERS: ATTEND Internal Medicine Hematology & Oncology
DX: R18.8 Other ascites (principal)
CPT/HCPCS: 82565; 85049; 85610; 36430; 36415; 49083; P9073; P9047

== ENCOUNTER 2022-12-29 07:56 | Day surgery (SDC) | payer MEDICARE ==
[2022-12-29] MEDS: ALBUMIN HUMAN 25% 50 ML in EMPTY BAG 1 BAG IVPB SCH ×2 (08:45→09:02)
[2022-12-29 08:52] LABS: Prothrombin Time 11.1 sec (10.0-12.5)
[2022-12-29 08:59] LABS: Platelet Count 39 k/uL (150-450)
[2022-12-29 09:02] LABS: African American GFR (CKD) 23 (>60 ml/min/1.73 sqM); Non-African American GFR(CKD) 20 (>60 ml/min/1.73 sqM)
[2022-12-29 10:12] VITALS: TEMP 98.2
[2022-12-29 11:05] VITALS: RESP 16
[2022-12-29 11:24] VITALS: BP 109/64; PULSE 77
--- NOTE | 2022-12-29 12:12 | US ---
Ultrasound-guided paracentesis. DATE OF EXAM: 12/29/2022 CLINICAL HISTORY: Ascites The procedure was discussed with the patient. The risks, complications, benefits, and alternatives we re discussed and any questions were answered. Informed consent was obtained. The patient was placed s upine on the ultrasound table and prepped and draped in the usual sterile fashion. All elements of maximal barrier technique were utilized. Under ultrasound guidance, access into the right lower quadrant was obtained, via the paracentesis catheter system and direct ultrasound guidanc e. Approximately 5 liters of straw-colored fluid was removed. The patient was stable throughout the proc edure and remained stable upon discharge from Department of Radiology. IMPRESSION: Successful paracentesis under ultrasound guidance.
== END 2022-12-29 11:30 | disposition home or self-care (01) ==
LOC: RADPROMAIN 07:56
PROVIDERS: ATTEND Internal Medicine Hematology & Oncology
DX: R18.8 Other ascites (principal)
CPT/HCPCS: 82565; 85049; 85610; 36430; 49083; P9073; P9047

== ENCOUNTER → 2022-12-31 | Outpatient (CLI) | payer MEDICARE ==
--- NOTE | 2022-12-31 10:10 | US ---
EXAMINATION TYPE: US portal vein DATE OF EXAM: 12/31/2022 COMPARISON: NONE CLINICAL INDICATION: Female, 72 years old with history of K74.60 UNSPECIFIED CIRRHOSIS OF LIVER; R18. 8 ASCIT; Hx ascites and weekly paracenteses; assess portal vein for patency prior to TIPS EXAM MEASUREMENTS: Liver Length: 14.0 Gallbladder Wall: 0.35 CBD: 0.50 Right Kidney: 8.1 x 4.2 x 3.7 ANATOMY: Pancreas: Limited visualization Liver: Cirrhotic Color flow patency within the portal vein: Yes Portal Vein Flow: Hepatopetal Gallbladder: Anechoic lumen Evidence for sonographic Crowder's sign: no CBD: wnl Right Kidney: wnl Ascites noted? Yes IMPRESSION: Cirrhotic liver disease. No evidence for hepatofugal flow.
== END | disposition home or self-care (01) ==
LOC: RADUSWWP 09:18
DX: K74.60 Unspecified cirrhosis of liver (principal); R18.8 Other ascites
CPT/HCPCS: 93976

== ENCOUNTER 2023-01-05 08:00 | Day surgery (SDC) | payer MEDICARE ==
[2023-01-05] MEDS: ALBUMIN HUMAN 25% 50 ML in EMPTY BAG 1 BAG IVPB SCH ×4 (08:47→12:37)
[2023-01-05 08:52] LABS: Mean Platelet Volume 8.7
[2023-01-05 09:05] LABS: Platelet Count 35 k/uL (150-450)
[2023-01-05 09:08] LABS: African American GFR (CKD) 23 (>60 ml/min/1.73 sqM); Non-African American GFR(CKD) 20 (>60 ml/min/1.73 sqM)
[2023-01-05 09:11] LABS: Prothrombin Time 10.8 sec (10.0-12.5)
[2023-01-05 11:43] VITALS: RESP 16
[2023-01-05 12:42] VITALS: BP 112/72; PULSE 70; TEMP 98.1
--- NOTE | 2023-01-05 15:41 | US ---
EXAMINATION TYPE: US paracentesis abd w/image DATE OF EXAM: 01/05/2023 11:51 AM CLINICAL INDICATION:Female, 72 years old with history of ascites; COMPARISON: 12/29/2022 ATTENDING: Dr. Selvin Meadows PROCEDURE: Informed consent was obtained. The risks of the procedure were extensively explained incl uding risk of damage to surrounding bowel with perforation and need for additional procedures. Proced ure was performed in the ultrasound procedure suite. Ultrasound imaging of the abdomen demonstrate as citic fluid. An appropriate access site was localized to the right lower abdomen. Timeout was taken p er protocol. The skin was prepped and draped in the usual sterile fashion and then locally anesthetiz ed with 1% lidocaine. The peritoneal cavity was then accessed via a 5-Nigerien one-step needle/cathete r. Approximately 7100 cc of clear straw-colored fluid was obtained. Postprocedural imaging of the a bdomen demonstrate a minimal amount of abdominal fluid. Patient tolerated procedure well without immediate complication. Hemostasis at the procedural site w as obtained with a sterile bandage placed. The patient was monitored in the holding area following th e procedure and was subsequently discharged in stable condition. IMPRESSION: Ultrasound guided paracentesis, with approximately 7100 cc of clear straw-colored fluid drained. No immediate complications were evident.
== END 2023-01-05 12:50 | disposition home or self-care (01) ==
LOC: RADPROMAIN 08:00
PROVIDERS: ATTEND Internal Medicine Hematology & Oncology
DX: R18.8 Other ascites (principal)
CPT/HCPCS: 82565; 85049; 85610; 36430; 49083; P9073; P9047

== ENCOUNTER 2023-01-12 08:15 | Day surgery (SDC) | payer MEDICARE ==
[2023-01-12 08:46] LABS: Mean Platelet Volume 9.1
[2023-01-12] MEDS: ALBUMIN HUMAN 25% 50 ML in EMPTY BAG 1 BAG IVPB SCH ×3 (08:46→10:41)
[2023-01-12 08:49] LABS: Platelet Count 41 k/uL (150-450)
[2023-01-12 08:54] LABS: African American GFR (CKD) 24 (>60 ml/min/1.73 sqM); Non-African American GFR(CKD) 20 (>60 ml/min/1.73 sqM)
[2023-01-12 09:06] VITALS: RESP 16
[2023-01-12 10:59] VITALS: TEMP 98
[2023-01-12 11:21] VITALS: BP 111/69; PULSE 77
--- NOTE | 2023-01-12 14:38 | US ---
Ultrasound-guided paracentesis. DATE OF EXAM: 01/12/2023 CLINICAL HISTORY: Ascites The procedure was discussed with the patient. The risks, complications, benefits, and alternatives we re discussed and any questions were answered. Informed consent was obtained. The patient was placed s upine on the ultrasound table and prepped and draped in the usual sterile fashion. All elements of maximal barrier technique were utilized. Under ultrasound guidance, access into the right lower quadrant was obtained, via the paracentesis catheter system and direct ultrasound guidanc e. Approximately 6.8 liters of straw-colored fluid was removed. The patient was stable throughout the pr ocedure and remained stable upon discharge from Department of Radiology. IMPRESSION: Successful paracentesis under ultrasound guidance.
== END 2023-01-12 11:15 | disposition home or self-care (01) ==
LOC: RADPROMAIN 08:15
PROVIDERS: ATTEND Internal Medicine Hematology & Oncology
DX: R18.8 Other ascites (principal)
CPT/HCPCS: 82565; 85049; 85610; 36430; 36415; 49083; P9073; P9047

== ENCOUNTER 2023-01-19 07:57 | Day surgery (SDC) | payer MEDICARE ==
[2023-01-19 08:28] LABS: Mean Platelet Volume 9.2
[2023-01-19 08:33] LABS: Platelet Count 34 k/uL (150-450)
[2023-01-19] MEDS: ALBUMIN HUMAN 25% 50 ML in EMPTY BAG 1 BAG IVPB SCH ×4 (08:35→10:39)
[2023-01-19 08:36] VITALS: RESP 16
[2023-01-19 08:44] LABS: African American GFR (CKD) 22 (>60 ml/min/1.73 sqM); Non-African American GFR(CKD) 19 (>60 ml/min/1.73 sqM)
[2023-01-19 08:48] LABS: INR 0.9 (<1.2); Prothrombin Time 10.4 sec (10.0-12.5)
[2023-01-19 10:56] VITALS: BP 109/57; PULSE 81; TEMP 98
--- NOTE | 2023-01-19 11:15 | US ---
Ultrasound-guided paracentesis. DATE OF EXAM: 01/19/2023 CLINICAL HISTORY: Ascites The procedure was discussed with the patient. The risks, complications, benefits, and alternatives we re discussed and any questions were answered. Informed consent was obtained. The patient was placed s upine on the ultrasound table and prepped and draped in the usual sterile fashion. All elements of maximal barrier technique were utilized. Under ultrasound guidance, access into the right lower quadrant was obtained, via the paracentesis catheter system and direct ultrasound guidanc e. Approximately 7 liters of straw-colored fluid was removed. The patient was stable throughout the proc edure and remained stable upon discharge from Department of Radiology. IMPRESSION: Successful paracentesis under ultrasound guidance.
== END 2023-01-19 11:05 | disposition home or self-care (01) ==
LOC: RADPROMAIN 07:57
PROVIDERS: ATTEND Internal Medicine Hematology & Oncology
DX: R18.8 Other ascites (principal)
CPT/HCPCS: 82565; 85049; 85610; 36430; 49083; P9073; P9047

== ENCOUNTER 2023-01-26 07:54 | Day surgery (SDC) | payer MEDICARE ==
[2023-01-26 08:50] LABS: Mean Platelet Volume 10.1
[2023-01-26 08:55] LABS: Prothrombin Time 11.2 sec (10.0-12.5)
[2023-01-26 08:58] LABS: Platelet Count 38 k/uL (150-450)
[2023-01-26 09:01] LABS: African American GFR (CKD) 22 (>60 ml/min/1.73 sqM); Non-African American GFR(CKD) 19 (>60 ml/min/1.73 sqM)
[2023-01-26] MEDS: ALBUMIN HUMAN 25% 50 ML in EMPTY BAG 1 BAG IVPB SCH ×3 (09:03→09:30)
[2023-01-26 10:14] VITALS: RESP 18; TEMP 98.7
--- NOTE | 2023-01-26 12:34 | US ---
Ultrasound-guided paracentesis. DATE OF EXAM: 01/26/2023 CLINICAL HISTORY: Ascites The procedure was discussed with the patient. The risks, complications, benefits, and alternatives we re discussed and any questions were answered. Informed consent was obtained. The patient was placed s upine on the ultrasound table and prepped and draped in the usual sterile fashion. All elements of maximal barrier technique were utilized. Under ultrasound guidance, access into the right lower quadrant was obtained, via the paracentesis catheter system and direct ultrasound guidanc e. Approximately 7 liters of straw-colored fluid was removed. The patient was stable throughout the proc edure and remained stable upon discharge from Department of Radiology. IMPRESSION: Successful paracentesis under ultrasound guidance.
[2023-01-26 13:34] VITALS: BP 108/68; PULSE 88
== END 2023-01-26 11:45 | disposition home or self-care (01) ==
LOC: RADPROMAIN 07:54
PROVIDERS: ATTEND Internal Medicine Hematology & Oncology
DX: R18.8 Other ascites (principal)
CPT/HCPCS: 82565; 85049; 85610; 36430; 49083; P9073; P9047

== ENCOUNTER 2023-02-02 08:05 | Day surgery (SDC) | payer MEDICARE ==
[2023-02-02 09:02] LABS: African American GFR (CKD) 21 (>60 ml/min/1.73 sqM); Non-African American GFR(CKD) 19 (>60 ml/min/1.73 sqM)
[2023-02-02 09:05] LABS: INR 0.9 (<1.2); Prothrombin Time 10.2 sec (10.0-12.5)
[2023-02-02 09:35] LABS: Mean Platelet Volume 8.9; Platelet Count 42 k/uL (150-450)
[2023-02-02] MEDS: ALBUMIN HUMAN 25% 50 ML in EMPTY BAG 1 BAG IVPB SCH ×3 (10:29→10:54)
[2023-02-02 13:29] VITALS: PULSE 76
[2023-02-02 14:25] VITALS: BP 114/68; RESP 18; TEMP 98.3
--- NOTE | 2023-02-03 10:54 | US ---
EXAMINATION TYPE: US paracentesis abd w/image DATE OF EXAM: 02/02/2023 12:53 PM CLINICAL INDICATION:Female, 72 years old with history of R18.8 ascites; COMPARISON: 01/26/2023 ATTENDING: Dr. Selvin Meadows PROCEDURE: Informed consent was obtained. The risks of the procedure were extensively explained incl uding risk of damage to surrounding bowel with perforation and need for additional procedures. Proced ure was performed in the ultrasound procedure suite. Ultrasound imaging of the abdomen demonstrate as citic fluid. An appropriate access site was localized to the right lower abdomen. Timeout was taken p er protocol. The skin was prepped and draped in the usual sterile fashion and then locally anesthetiz ed with 1% lidocaine. The peritoneal cavity was then accessed via a 5-Thai one-step needle/cathete r. Approximately 6400 cc of clear straw-colored fluid was obtained. Postprocedural imaging of the a bdomen demonstrate a minimal amount of abdominal fluid. Patient tolerated procedure well without immediate complication. Hemostasis at the procedural site w as obtained with a sterile bandage placed. The patient was monitored in the holding area following th e procedure and was subsequently discharged in stable condition. IMPRESSION: Ultrasound guided paracentesis, with approximately 6400 cc of clear straw-colored fluid drained. No i mmediate complications were evident.
== END 2023-02-02 14:05 | disposition home or self-care (01) ==
LOC: RADPROMAIN 08:05
PROVIDERS: ATTEND Internal Medicine Hematology & Oncology
DX: R18.8 Other ascites (principal)
CPT/HCPCS: 82565; 85049; 85610; 36430; 36415; 49083; P9073; P9047

== ENCOUNTER 2023-02-09 07:56 | Day surgery (SDC) | payer MEDICARE ==
[2023-02-09 08:54] LABS: Mean Platelet Volume 8.8
[2023-02-09 08:55] LABS: INR 1.2 (<1.2); Platelet Count 43 k/uL (150-450); Prothrombin Time 12.4 sec (10.0-12.5)
[2023-02-09 08:59] LABS: African American GFR (CKD) 20 (>60 ml/min/1.73 sqM); Non-African American GFR(CKD) 17 (>60 ml/min/1.73 sqM)
[2023-02-09] MEDS: ALBUMIN HUMAN 25% 50 ML in EMPTY BAG 1 BAG IVPB SCH ×3 (09:06→11:49)
[2023-02-09 10:27] VITALS: TEMP 98.6
[2023-02-09 10:57] VITALS: BP 116/52; PULSE 72; RESP 16
--- NOTE | 2023-02-09 11:48 | US ---
Ultrasound-guided paracentesis. DATE OF EXAM: 02/09/2023 CLINICAL HISTORY: Ascites The procedure was discussed with the patient. The risks, complications, benefits, and alternatives we re discussed and any questions were answered. Informed consent was obtained. The patient was placed s upine on the ultrasound table and prepped and draped in the usual sterile fashion. All elements of maximal barrier technique were utilized. Under ultrasound guidance, access into the right lower quadrant was obtained, via the paracentesis catheter system and direct ultrasound guidanc e. Approximately 4.25 liters of straw-colored fluid was removed. The patient was stable throughout the p rocedure and remained stable upon discharge from Department of Radiology. IMPRESSION: Successful paracentesis under ultrasound guidance.
== END 2023-02-09 11:34 | disposition home or self-care (01) ==
LOC: RADPROMAIN 07:56
PROVIDERS: ATTEND Internal Medicine Hematology & Oncology
DX: R18.8 Other ascites (principal)
CPT/HCPCS: 82565; 85049; 85610; 36430; 36415; 49083; P9073; P9047

== ENCOUNTER 2023-02-16 08:00 | Day surgery (SDC) | payer MEDICARE ==
[2023-02-16] MEDS: ALBUMIN HUMAN 25% 50 ML in EMPTY BAG 1 BAG IVPB SCH ×3 (08:43→11:23)
[2023-02-16 08:49] LABS: Mean Platelet Volume 7.8
[2023-02-16 08:54] VITALS: RESP 16
[2023-02-16 09:01] LABS: African American GFR (CKD) 28 (>60 ml/min/1.73 sqM); Non-African American GFR(CKD) 24 (>60 ml/min/1.73 sqM)
[2023-02-16 09:18] LABS: Platelet Count 48 k/uL (150-450)
[2023-02-16 09:20] LABS: INR 1.1 (<1.2); Prothrombin Time 12.1 sec (10.0-12.5)
[2023-02-16 11:14] VITALS: TEMP 97.8
--- NOTE | 2023-02-16 11:28 | US ---
Ultrasound-guided paracentesis. DATE OF EXAM: 02/16/2023 CLINICAL HISTORY: Ascites The procedure was discussed with the patient. The risks, complications, benefits, and alternatives we re discussed and any questions were answered. Informed consent was obtained. The patient was placed s upine on the ultrasound table and prepped and draped in the usual sterile fashion. All elements of maximal barrier technique were utilized. Under ultrasound guidance, access into the right lower quadrant was obtained, via the paracentesis catheter system and direct ultrasound guidanc e. Approximately 4 liters of straw-colored fluid was removed. The patient was stable throughout the proc edure and remained stable upon discharge from Department of Radiology. IMPRESSION: Successful paracentesis under ultrasound guidance.
[2023-02-16 11:37] VITALS: BP 125/68; PULSE 75
== END 2023-02-16 11:22 | disposition home or self-care (01) ==
LOC: RADPROMAIN 08:00
PROVIDERS: ATTEND Internal Medicine Hematology & Oncology
DX: R18.8 Other ascites (principal)
CPT/HCPCS: 82565; 85049; 85610; 36430; 36415; 49083; P9073; P9047

== ENCOUNTER 2023-02-23 08:05 | Day surgery (SDC) | payer MEDICARE ==
[2023-02-23 08:43] LABS: Mean Platelet Volume 7.4
[2023-02-23 08:51] LABS: Platelet Count 40 k/uL (150-450)
[2023-02-23] MEDS: ALBUMIN HUMAN 25% 50 ML in EMPTY BAG 1 BAG IVPB SCH ×2 (08:56→11:04)
[2023-02-23 08:58] LABS: INR 1.1 (<1.2); Prothrombin Time 11.8 sec (10.0-12.5)
[2023-02-23 09:15] LABS: African American GFR (CKD) 27 (>60 ml/min/1.73 sqM); Non-African American GFR(CKD) 24 (>60 ml/min/1.73 sqM)
[2023-02-23 09:49] VITALS: TEMP 98
[2023-02-23 11:03] VITALS: BP 115/64; PULSE 66; RESP 16
--- NOTE | 2023-02-23 11:28 | US ---
Ultrasound-guided paracentesis. DATE OF EXAM: 02/23/2023 CLINICAL HISTORY: Ascites The procedure was discussed with the patient. The risks, complications, benefits, and alternatives we re discussed and any questions were answered. Informed consent was obtained. The patient was placed s upine on the ultrasound table and prepped and draped in the usual sterile fashion. All elements of maximal barrier technique were utilized. Under ultrasound guidance, access into the right lower quadrant was obtained, via the paracentesis catheter system and direct ultrasound guidanc e. Approximately 4.8 liters of straw-colored fluid was removed. The patient was stable throughout the pr ocedure and remained stable upon discharge from Department of Radiology. IMPRESSION: Successful paracentesis under ultrasound guidance.
== END 2023-02-23 11:04 | disposition home or self-care (01) ==
LOC: RADPROMAIN 08:05
PROVIDERS: ATTEND Internal Medicine Hematology & Oncology
DX: R18.8 Other ascites (principal)
CPT/HCPCS: 82565; 85049; 85610; 36430; 36415; 49083; P9073; P9047

== ENCOUNTER 2023-03-02 07:59 | Day surgery (SDC) | payer MEDICARE ==
[2023-03-02 08:50] LABS: INR 1.1 (<1.2); Prothrombin Time 11.8 sec (10.0-12.5)
[2023-03-02 08:54] LABS: African American GFR (CKD) 27 (>60 ml/min/1.73 sqM); Non-African American GFR(CKD) 24 (>60 ml/min/1.73 sqM)
[2023-03-02] MEDS: ALBUMIN HUMAN 25% 50 ML in EMPTY BAG 1 BAG IVPB SCH ×3 (08:55→10:47)
[2023-03-02 08:56] LABS: Mean Platelet Volume 8.7
[2023-03-02 09:01] LABS: Platelet Count 38 k/uL (150-450)
[2023-03-02 09:19] VITALS: RESP 18
[2023-03-02 10:15] VITALS: TEMP 98
[2023-03-02 11:05] VITALS: BP 122/67; PULSE 75
--- NOTE | 2023-03-02 12:54 | US ---
Ultrasound-guided paracentesis. DATE OF EXAM: 03/02/2023 CLINICAL HISTORY: Ascites The procedure was discussed with the patient. The risks, complications, benefits, and alternatives we re discussed and any questions were answered. Informed consent was obtained. The patient was placed s upine on the ultrasound table and prepped and draped in the usual sterile fashion. All elements of maximal barrier technique were utilized. Under ultrasound guidance, access into the right lower quadrant was obtained, via the paracentesis catheter system and direct ultrasound guidanc e. Approximately 5.7 liters of straw-colored fluid was removed. The patient was stable throughout the pr ocedure and remained stable upon discharge from Department of Radiology. IMPRESSION: Successful paracentesis under ultrasound guidance.
== END 2023-03-02 11:15 | disposition home or self-care (01) ==
LOC: RADPROMAIN 07:59
PROVIDERS: ATTEND Internal Medicine Hematology & Oncology
DX: R18.8 Other ascites (principal)
CPT/HCPCS: 82565; 85049; 85610; 36430; 36415; 49083; P9073; P9047

== ENCOUNTER 2023-03-10 07:50 | Day surgery (SDC) | payer MEDICARE ==
[2023-03-10 08:43] LABS: Prothrombin Time 11.4 sec (10.0-12.5)
[2023-03-10 08:53] LABS: African American GFR (CKD) 29 (>60 ml/min/1.73 sqM); Mean Platelet Volume 9.1; Non-African American GFR(CKD) 25 (>60 ml/min/1.73 sqM)
[2023-03-10 08:54] LABS: Platelet Count 38 k/uL (150-450)
[2023-03-10] MEDS: ALBUMIN HUMAN 25% 50 ML in EMPTY BAG 1 BAG IVPB SCH ×4 (09:05→11:10)
[2023-03-10 10:40] VITALS: PULSE 70; TEMP 98.7
[2023-03-10 11:28] VITALS: BP 112/62; RESP 16
--- NOTE | 2023-03-10 12:40 | US ---
EXAMINATION TYPE: US paracentesis abd w/image DATE OF EXAM: 03/10/2023 CLINICAL HISTORY: 72 year-old female R18.8, ascites, weekly paracentesis. The procedure was discussed with the patient. The risks, complications, benefits, and alternatives we re discussed and any questions were answered. Informed consent was obtained. The patient was placed s upine on the ultrasound table and prepped and draped in the usual sterile fashion. All elements of maximal barrier technique were utilized. Ultrasound was utilized to select the precise skin entry site along the right lower quadrant. Utilizing trocar technique, a 6 Iranian safety centesis catheter was placed into the ascites collectio n in the right lower quadrant. Approximately 7 liters of straw-colored fluid was removed. The patient was stable throughout the proc edure and remained stable upon discharge from Department of Radiology. Catheter was removed, hemostasis obtained, and a dressing placed. The patient had platelets infused during the procedure. IMPRESSION: Successful therapeutic paracentesis under ultrasound guidance, 7 L aspirated without complication.
== END 2023-03-10 11:10 | disposition home or self-care (01) ==
LOC: RADPROMAIN 07:50
PROVIDERS: ATTEND Internal Medicine Hematology & Oncology
DX: R18.8 Other ascites (principal)
CPT/HCPCS: 82565; 85049; 85610; 36430; 36415; 49083; P9073; P9047

== ENCOUNTER 2023-03-17 08:02 | Day surgery (SDC) | payer MEDICARE ==
[2023-03-17 08:37] VITALS: TEMP 98.3
[2023-03-17 08:40] LABS: Anisocytosis Slight; Basophils % (A) 1 %; Eosinophils # (A) 0.2 k/uL (0-0.7); Eosinophils % (A) 11 %; HCT 29.5 % (34.0-46.0); HGB 9.8 gm/dL (11.4-16.0); Hypochromasia Slight; Lymphocytes # (A) 0.5 k/uL (1.0-4.8); Lymphocytes % (A) 22 %; MCH 28.1 pg (25.0-35.0); MCHC 33.4 g/dL (31.0-37.0); MCV 84.3 fL (80.0-100.0); Monocytes # (A) 0.2 k/uL (0-1.0); Monocytes % (A) 11 %; Neutrophils # (A) 1.2 k/uL (1.3-7.7); Neutrophils % (A) 52 %; Poikilocytosis Slight; RDW 16.2 % (11.5-15.5); WBC 2.2 k/uL (3.8-10.6)
[2023-03-17 08:55] LABS: INR 1.1 (<1.2); Prothrombin Time 11.7 sec (10.0-12.5)
[2023-03-17 09:05] LABS: African American GFR (CKD) 29 (>60 ml/min/1.73 sqM); Non-African American GFR(CKD) 25 (>60 ml/min/1.73 sqM)
[2023-03-17 09:07] LABS: Platelet Count 30 k/uL (150-450)
[2023-03-17] MEDS: ALBUMIN HUMAN 25% 50 ML in EMPTY BAG 1 BAG IVPB SCH ×4 (10:21→11:35)
[2023-03-17 11:47] VITALS: BP 118/62; PULSE 74; RESP 18
--- NOTE | 2023-03-17 12:03 | US ---
EXAMINATION TYPE: US paracentesis abd w/image DATE OF EXAM: 03/17/2023 9:46 AM CLINICAL INDICATION:Female, 72 years old with history of R18.8; COMPARISON: 03/10/2023. ATTENDING: Dr. Selvin Meadows PROCEDURE: Informed consent was obtained. The risks of the procedure were extensively explained incl uding risk of damage to surrounding bowel with perforation and need for additional procedures. Proced ure was performed in the ultrasound procedure suite. Ultrasound imaging of the abdomen demonstrate as citic fluid. An appropriate access site was localized to the right lower abdomen. Timeout was taken p er protocol. The skin was prepped and draped in the usual sterile fashion and then locally anesthetiz ed with 1% lidocaine. The peritoneal cavity was then accessed via a 5-Kenyan one-step needle/cathete r. Approximately 6900 cc of clear straw-colored fluid was obtained. Postprocedural imaging of the a bdomen demonstrate a minimal amount of abdominal fluid. Patient tolerated procedure well without immediate complication. Hemostasis at the procedural site w as obtained with a sterile bandage placed. The patient was monitored in the holding area following th e procedure and was subsequently discharged in stable condition. IMPRESSION: Ultrasound guided paracentesis, with approximately 6900 cc of clear straw-colored fluid drained. No immediate complications were evident.
== END 2023-03-17 11:30 | disposition home or self-care (01) ==
LOC: RADPROMAIN 08:02
PROVIDERS: ATTEND Internal Medicine Hematology & Oncology
DX: R18.8 Other ascites (principal)
CPT/HCPCS: 82565; 85025; 85610; 36430; 36415; 49083; P9073; P9047

== ENCOUNTER → 2023-03-18 | Outpatient (CLI) | payer MEDICARE ==
--- NOTE | 2023-03-18 09:08 | US ---
EXAMINATION TYPE: US abdomen complete DATE OF EXAM: 03/18/2023 COMPARISON: 12/31/22 CLINICAL INDICATION: Female, 72 years old with history of K76.6 PORTAL HYPERTENSION; TIPS end of Nove mber, first post-op US TECHNIQUE: Multiple sonographic images of the abdomen are obtained. FINDINGS: EXAM MEASUREMENTS: Liver Length: 12.9 cm Gallbladder Wall: 0.2 cm CBD: 0.5 cm Spleen: 18.5 cm Right Kidney: 8.3x4.6x4.4 cm Left Kidney: 9.2x3.7x4.5 cm MINIATURE MODEL MAKER NOTES: Pancreas: Tail obscured by overlying bowel gas Liver: cirrhotic, small size Gallbladder: wnl Evidence for sonographic Crowder's sign: No CBD: wnl Spleen: enlarged Right Kidney: No hydronephrosis or masses seen Left Kidney: No hydronephrosis or masses seen Upper IVC: wnl Abd Aorta: only upper portion visualized Left portal vein appears thrombosed, MPV and TIPS shunt appear patent . Small amount of ascites is pr esent. IMPRESSION: 1. Patent shunt and main pulmonary vein. Portal venous thrombosis is present.
== END | disposition home or self-care (01) ==
LOC: RADUSWWP 07:31
DX: I81 Portal vein thrombosis (principal); K76.6 Portal hypertension
CPT/HCPCS: 76700

== ENCOUNTER 2023-03-23 08:01 | Day surgery (SDC) | payer MEDICARE ==
[2023-03-23 08:52] LABS: Mean Platelet Volume 9.8
[2023-03-23 08:57] LABS: Platelet Count 37 k/uL (150-450)
[2023-03-23 09:05] LABS: African American GFR (CKD) 29 (>60 ml/min/1.73 sqM); Non-African American GFR(CKD) 25 (>60 ml/min/1.73 sqM)
[2023-03-23] MEDS: ALBUMIN HUMAN 25% 50 ML in EMPTY BAG 1 BAG IVPB SCH ×3 (09:12→10:53)
[2023-03-23 09:16] LABS: Prothrombin Time 11.3 sec (10.0-12.5)
[2023-03-23 09:57] VITALS: RESP 16; TEMP 98.4
--- NOTE | 2023-03-23 11:10 | US ---
EXAMINATION TYPE: US paracentesis abd w/image DATE OF EXAM: 03/23/2023 CLINICAL HISTORY: 72-year-old female R1 8.8, weekly therapeutic paracentesis for liver disease The procedure was discussed with the patient. The risks, complications, benefits, and alternatives we re discussed and any questions were answered. Informed consent was obtained. The patient was placed s upine on the ultrasound table and prepped and draped in the usual sterile fashion. Ultrasound was utilized to determine the precise skin entry site at the right flank. All elements of maximal barrier technique were utilized. Utilizing trocar technique and a 6 Amharic sa fety centesis catheter, catheter was placed into the right abdominal ascites collection. Approximately 6.6 liters of straw-colored fluid was removed. Catheter removed, hemostasis obtained, and a dressing placed. The patient was stable throughout the procedure and remained stable upon discharge from Department of Radiology. IMPRESSION: Successful therapeutic paracentesis under ultrasound guidance. 6.6 L of normal ascites fluid removed.
[2023-03-23 11:55] VITALS: BP 119/67; PULSE 77
== END 2023-03-23 11:20 | disposition home or self-care (01) ==
LOC: RADPROMAIN 08:01
PROVIDERS: ATTEND Internal Medicine Hematology & Oncology
DX: R18.8 Other ascites (principal)
CPT/HCPCS: 82565; 85049; 85610; 36415; 49083; P9073; P9047

== ENCOUNTER 2023-03-30 07:58 | Day surgery (SDC) | payer MEDICARE ==
[2023-03-30 08:33] LABS: Mean Platelet Volume 8.9; Platelet Count 40 k/uL (150-450)
[2023-03-30] MEDS: ALBUMIN HUMAN 25% 50 ML in EMPTY BAG 1 BAG IVPB SCH ×2 (08:37→08:59)
[2023-03-30 08:41] LABS: Prothrombin Time 11.2 sec (10.0-12.5)
[2023-03-30 08:50] VITALS: RESP 16
[2023-03-30 08:51] LABS: African American GFR (CKD) 27 (>60 ml/min/1.73 sqM); Non-African American GFR(CKD) 23 (>60 ml/min/1.73 sqM)
[2023-03-30 10:48] VITALS: TEMP 97.9
[2023-03-30 11:12] VITALS: BP 123/73; PULSE 70
--- NOTE | 2023-03-30 11:14 | US ---
Ultrasound-guided paracentesis. DATE OF EXAM: 03/30/2023 CLINICAL HISTORY: Ascites The procedure was discussed with the patient. The risks, complications, benefits, and alternatives we re discussed and any questions were answered. Informed consent was obtained. The patient was placed s upine on the ultrasound table and prepped and draped in the usual sterile fashion. All elements of maximal barrier technique were utilized. Under ultrasound guidance, access into the right lower quadrant was obtained, via the paracentesis catheter system and direct ultrasound guidanc e. Approximately 6 liters of straw-colored fluid was removed. The patient was stable throughout the proc edure and remained stable upon discharge from Department of Radiology. IMPRESSION: Successful paracentesis under ultrasound guidance.
== END 2023-03-30 10:56 | disposition home or self-care (01) ==
LOC: RADPROMAIN 07:58
PROVIDERS: ATTEND Internal Medicine Hematology & Oncology
DX: R18.8 Other ascites (principal)
CPT/HCPCS: 82565; 85049; 85610; 36415; 49083; P9073; P9047

== ENCOUNTER 2023-04-06 07:54 | Day surgery (SDC) | payer MEDICARE ==
[2023-04-06 08:49] LABS: Partial Thromboplastin Time 24.5 sec (22.0-30.0); Prothrombin Time 10.6 sec (10.0-12.5)
[2023-04-06 08:54] LABS: African American GFR (CKD) 28 (>60 ml/min/1.73 sqM); Non-African American GFR(CKD) 24 (>60 ml/min/1.73 sqM)
[2023-04-06 08:56] VITALS: TEMP 98.1
[2023-04-06] MEDS: ALBUMIN HUMAN 25% 50 ML in EMPTY BAG 1 BAG IVPB SCH ×3 (08:58→09:38)
[2023-04-06 09:42] LABS: Mean Platelet Volume 8.9
[2023-04-06 09:44] LABS: Platelet Count 41 k/uL (150-450)
[2023-04-06 10:34] VITALS: RESP 16
[2023-04-06 11:23] VITALS: BP 117/68; PULSE 73
--- NOTE | 2023-04-07 12:29 | US ---
EXAMINATION TYPE: US paracentesis abd w/image DATE OF EXAM: 04/06/2023 10:32 AM CLINICAL INDICATION:Female, 72 years old with history of R18.8; COMPARISON: 03/30/2023. ATTENDING: Dr. Selvin Meadows PROCEDURE: Informed consent was obtained. The risks of the procedure were extensively explained incl uding risk of damage to surrounding bowel with perforation and need for additional procedures. Proced ure was performed in the ultrasound procedure suite. Ultrasound imaging of the abdomen demonstrate as citic fluid. An appropriate access site was localized to the left lower abdomen. Timeout was taken pe r protocol. The skin was prepped and draped in the usual sterile fashion and then locally anesthetize d with 1% lidocaine. The peritoneal cavity was then accessed via a 5-Senegalese one-step needle/catheter . Approximately 6700 cc of clear straw-colored fluid was obtained. Postprocedural imaging of the abd omen demonstrate a minimal amount of abdominal fluid. Patient tolerated procedure well without immediate complication. Hemostasis at the procedural site w as obtained with a sterile bandage placed. The patient was monitored in the holding area following th e procedure and was subsequently discharged in stable condition. IMPRESSION: Ultrasound guided paracentesis, with approximately 6700 cc of clear straw-colored fluid drained. No immediate complications were evident.
== END 2023-04-06 11:20 | disposition home or self-care (01) ==
LOC: RADPROMAIN 07:54
PROVIDERS: ATTEND Internal Medicine Hematology & Oncology
DX: R18.8 Other ascites (principal)
CPT/HCPCS: 82565; 85049; 85610; 85730; 36415; 49083; P9073; P9047

== ENCOUNTER 2023-04-13 07:59 | Day surgery (SDC) | payer MEDICARE ==
[2023-04-13 08:35] LABS: INR 1.1 (<1.2); Prothrombin Time 11.6 sec (10.0-12.5)
[2023-04-13 08:46] LABS: Mean Platelet Volume 9.9
[2023-04-13 08:47] LABS: Platelet Count 36 k/uL (150-450)
[2023-04-13 08:58] LABS: African American GFR (CKD) 27 (>60 ml/min/1.73 sqM); Non-African American GFR(CKD) 23 (>60 ml/min/1.73 sqM)
[2023-04-13] MEDS: ALBUMIN HUMAN 25% 50 ML in EMPTY BAG 1 BAG IVPB SCH ×4 (09:00→10:44)
[2023-04-13 10:09] VITALS: RESP 15
[2023-04-13 11:04] VITALS: BP 112/63; PULSE 75; TEMP 98.2
--- NOTE | 2023-04-13 12:08 | US ---
EXAMINATION TYPE: US paracentesis abd w/image DATE OF EXAM: 04/13/2023 CLINICAL HISTORY: 72-year-old female R1 8.8, ascites, here for routine weekly paracentesis. The procedure was discussed with the patient. The risks, complications, benefits, and alternatives we re discussed and any questions were answered. Informed consent was obtained. The patient was placed s upine on the ultrasound table and prepped and draped in the usual sterile fashion. All elements of maximal barrier technique were utilized. Ultrasound was utilized to determine the precise skin entry site along the left lower quadrant. A 5 Greek one-step catheter and trocar technique was utilized to access the ascites collection under direct ultrasound guidance. Approximately 6.5 liters of straw-colored fluid was removed. Catheter was removed, hemostasis obtained, and a dressing placed. The patient was stable throughout the procedure and remained stable upon discharge from Department of Radiology. IMPRESSION: Successful therapeutic paracentesis under ultrasound guidance. 6.5 L of fluid removed.
== END 2023-04-13 10:50 | disposition home or self-care (01) ==
LOC: RADPROMAIN 07:59
PROVIDERS: ATTEND Internal Medicine Hematology & Oncology
DX: R18.8 Other ascites (principal)
CPT/HCPCS: 82565; 85049; 85610; 36430; 36415; 49083; P9073; P9047

== ENCOUNTER 2023-04-20 08:08 | Day surgery (SDC) | payer MEDICARE ==
[2023-04-20 08:59] LABS: INR 1.1 (<1.2); Prothrombin Time 11.4 sec (10.0-12.5)
[2023-04-20 09:02] LABS: Mean Platelet Volume 8.4
[2023-04-20 09:03] LABS: Platelet Count 50 k/uL (150-450)
[2023-04-20 09:09] LABS: African American GFR (CKD) 26 (>60 ml/min/1.73 sqM); Non-African American GFR(CKD) 23 (>60 ml/min/1.73 sqM)
[2023-04-20] MEDS: ALBUMIN HUMAN 25% 50 ML in EMPTY BAG 1 BAG IVPB SCH ×4 (09:41→10:26)
[2023-04-20 10:17] VITALS: RESP 20; TEMP 99.3
[2023-04-20 11:15] VITALS: BP 127/67; PULSE 96
--- NOTE | 2023-04-20 13:06 | US ---
Ultrasound-guided paracentesis. DATE OF EXAM: 04/20/2023 CLINICAL HISTORY: Ascites The procedure was discussed with the patient. The risks, complications, benefits, and alternatives we re discussed and any questions were answered. Informed consent was obtained. The patient was placed s upine on the ultrasound table and prepped and draped in the usual sterile fashion. All elements of maximal barrier technique were utilized. Under ultrasound guidance, access into the right lower quadrant was obtained, via the paracentesis catheter system and direct ultrasound guidanc e. Approximately 6.8 liters of straw-colored fluid was removed. The patient was stable throughout the pr ocedure and remained stable upon discharge from Department of Radiology. IMPRESSION: Successful paracentesis under ultrasound guidance.
== END 2023-04-20 10:45 | disposition home or self-care (01) ==
LOC: RADPROMAIN 08:08
PROVIDERS: ATTEND Internal Medicine Hematology & Oncology
DX: R18.8 Other ascites (principal)
CPT/HCPCS: 82565; 85049; 85610; 36415; 49083; P9047

== ENCOUNTER 2023-05-04 08:01 | Day surgery (SDC) | payer MEDICARE ==
[2023-05-04 08:45] LABS: African American GFR (CKD) 29 (>60 ml/min/1.73 sqM); Non-African American GFR(CKD) 25 (>60 ml/min/1.73 sqM)
[2023-05-04 08:47] LABS: INR 1.1 (<1.2); Partial Thromboplastin Time 25.5 sec (22.0-30.0)
[2023-05-04] MEDS: ALBUMIN HUMAN 25% 50 ML in EMPTY BAG 1 BAG IVPB SCH (08:49)
[2023-05-04 09:16] LABS: Mean Platelet Volume 7.3
[2023-05-04 09:18] LABS: Platelet Count 40 k/uL (150-450)
--- NOTE | 2023-05-04 11:10 | US ---
Ultrasound-guided paracentesis. DATE OF EXAM: 05/04/2023 CLINICAL HISTORY: Ascites The procedure was discussed with the patient. The risks, complications, benefits, and alternatives we re discussed and any questions were answered. Informed consent was obtained. The patient was placed s upine on the ultrasound table and prepped and draped in the usual sterile fashion. All elements of maximal barrier technique were utilized. Under ultrasound guidance, access into the right lower quadrant was obtained, via the paracentesis catheter system and direct ultrasound guidanc e. Approximately 4.9 liters of straw-colored fluid was removed. The patient was stable throughout the pr ocedure and remained stable upon discharge from Department of Radiology. IMPRESSION: Successful paracentesis under ultrasound guidance.
[2023-05-04 11:15] VITALS: BP 123/57; PULSE 76; RESP 16; TEMP 98
== END 2023-05-04 11:30 | disposition home or self-care (01) ==
LOC: RADPROMAIN 08:01
PROVIDERS: ATTEND Internal Medicine Hematology & Oncology
DX: R18.8 Other ascites (principal)
CPT/HCPCS: 82565; 85049; 85610; 85730; 36430; 36415; 49083; P9073; P9047

== ENCOUNTER 2023-05-11 07:51 | Day surgery (SDC) | payer MEDICARE ==
[2023-05-11 08:35] LABS: Mean Platelet Volume 7.8
[2023-05-11 08:41] LABS: Platelet Count 33 k/uL (150-450)
[2023-05-11 08:43] LABS: INR 1.1 (<1.2); Prothrombin Time 12.3 sec (10.0-12.5)
[2023-05-11 08:48] LABS: African American GFR (CKD) 34 (>60 ml/min/1.73 sqM); Non-African American GFR(CKD) 30 (>60 ml/min/1.73 sqM)
[2023-05-11] MEDS: ALBUMIN HUMAN 25% 50 ML in EMPTY BAG 1 BAG IVPB SCH (09:08)
[2023-05-11 10:38] VITALS: TEMP 98.8
[2023-05-11 11:38] VITALS: BP 134/59; PULSE 75; RESP 16
--- NOTE | 2023-05-11 12:39 | US ---
EXAMINATION TYPE: US paracentesis abd w/image DATE OF EXAM: 05/11/2023 9:57 AM CLINICAL INDICATION:Female, 72 years old with history of R18.8 OTHER ASCITES; COMPARISON: 05/04/2023 ATTENDING: Dr. Selvin Meadows PROCEDURE: Informed consent was obtained. The risks of the procedure were extensively explained incl uding risk of damage to surrounding bowel with perforation and need for additional procedures. Proced ure was performed in the ultrasound procedure suite. Ultrasound imaging of the abdomen demonstrate as citic fluid. An appropriate access site was localized to the right lower abdomen. Timeout was taken p er protocol. The skin was prepped and draped in the usual sterile fashion and then locally anesthetiz ed with 1% lidocaine. The peritoneal cavity was then accessed via a 5-Ecuadorean one-step needle/cathete r. Approximately 4200 cc of clear straw-colored fluid was obtained. Postprocedural imaging of the ab domen demonstrate a minimal amount of abdominal fluid. Patient tolerated procedure well without immediate complication. Hemostasis at the procedural site w as obtained with a sterile bandage placed. The patient was monitored in the holding area following th e procedure and was subsequently discharged in stable condition. IMPRESSION: Ultrasound guided paracentesis, with approximately 4200 cc of clear straw-colored fluid drained. No i mmediate complications were evident.
== END 2023-05-11 11:00 | disposition home or self-care (01) ==
LOC: RADPROMAIN 07:51
PROVIDERS: ATTEND Internal Medicine Hematology & Oncology
DX: R18.8 Other ascites (principal)
CPT/HCPCS: 82565; 85049; 85610; 36430; 36415; 49083; P9073; P9047

== ENCOUNTER 2023-05-18 08:03 | Day surgery (SDC) | payer MEDICARE ==
[2023-05-18 08:49] LABS: Mean Platelet Volume 8.8
[2023-05-18 08:53] LABS: Platelet Count 38 k/uL (150-450)
[2023-05-18] MEDS: ALBUMIN HUMAN 25% 50 ML in EMPTY BAG 1 BAG IVPB SCH (09:04)
[2023-05-18 09:05] LABS: INR 1.1 (<1.2); Prothrombin Time 11.8 sec (10.0-12.5)
[2023-05-18 09:06] LABS: African American GFR (CKD) 35 (>60 ml/min/1.73 sqM); Non-African American GFR(CKD) 31 (>60 ml/min/1.73 sqM)
[2023-05-18 10:20] VITALS: TEMP 97.9
[2023-05-18 12:01] VITALS: BP 137/72; PULSE 85; RESP 18
--- NOTE | 2023-05-18 12:39 | US ---
EXAMINATION TYPE: US paracentesis abd w/image DATE OF EXAM: 05/18/2023 CLINICAL HISTORY: 72-year-old female R18.8, ascites. Recent revision TIPS procedure. The procedure was discussed with the patient. The risks, complications, benefits, and alternatives we re discussed and any questions were answered. Informed consent was obtained. The patient was placed s upine on the ultrasound table and prepped and draped in the usual sterile fashion. All elements of maximal barrier technique were utilized. Ultrasound was utilized to determine the precise skin entry site along the right lower quadrant/right flank. A 5 Serbian One-Step catheter and trocar technique was utilized to access the ascites collection under direct ultrasound guidance. Approximately 3.5 liters of clear, dark marce fluid was removed. This is typical color for the patien t. Catheter was removed, hemostasis obtained, and a dressing placed. The patient was stable throughout the procedure and remained stable upon discharge from Department of Radiology. IMPRESSION: Successful therapeutic paracentesis under ultrasound guidance. 3.5 L of fluid removed. Note decreasin g overall volume of fluid following recent revision TIPS procedure.
== END 2023-05-18 12:10 | disposition home or self-care (01) ==
LOC: RADPROMAIN 08:03
PROVIDERS: ATTEND Internal Medicine Hematology & Oncology
DX: R18.8 Other ascites (principal)
CPT/HCPCS: 82565; 85049; 85610; 36430; 36415; 49083; P9073; P9047

== ENCOUNTER 2023-05-25 08:02 | Day surgery (SDC) | payer MEDICARE ==
[2023-05-25 09:00] LABS: Mean Platelet Volume 8.3
[2023-05-25 09:01] LABS: Platelet Count 41 k/uL (150-450)
[2023-05-25 09:06] LABS: INR 1.1 (<1.2); Prothrombin Time 12.1 sec (10.0-12.5)
[2023-05-25 09:13] LABS: African American GFR (CKD) 34 (>60 ml/min/1.73 sqM); Non-African American GFR(CKD) 30 (>60 ml/min/1.73 sqM)
[2023-05-25 10:35] LABS: Anisocytosis Slight; Basophils % (A) 1 %; Eosinophils # (A) 0.2 k/uL (0-0.7); Eosinophils % (A) 10 %; HGB 8.7 gm/dL (11.4-16.0); Hypochromasia Slight; Lymphocytes # (A) 0.5 k/uL (1.0-4.8); Lymphocytes % (A) 22 %; MCH 27.4 pg (25.0-35.0); MCHC 32.1 g/dL (31.0-37.0); MCV 85.2 fL (80.0-100.0); Monocytes # (A) 0.2 k/uL (0-1.0); Monocytes % (A) 8 %; Neutrophils # (A) 1.2 k/uL (1.3-7.7); Neutrophils % (A) 55 %; Poikilocytosis Slight; RBC 3.16 m/uL (3.80-5.40); RDW 17.6 % (11.5-15.5); WBC 2.2 k/uL (3.8-10.6)
[2023-05-25 10:36] VITALS: RESP 18
[2023-05-25 10:38] LABS: Mean Platelet Volume 8.3
[2023-05-25 10:39] LABS: Platelet Count 41 k/uL (150-450)
[2023-05-25] MEDS: ALBUMIN HUMAN 25% 50 ML in EMPTY BAG 1 BAG IVPB SCH (11:09)
[2023-05-25 11:12] VITALS: TEMP 98
[2023-05-25 11:46] VITALS: BP 147/70; PULSE 80
--- NOTE | 2023-05-27 09:50 | US ---
EXAMINATION TYPE: US paracentesis abd w/image DATE OF EXAM: 05/25/2023 10:18 AM CLINICAL INDICATION:Female, 72 years old with history of R18.8 OTHER ASCITES; COMPARISON: 05/18/2023. ATTENDING: Dr. Selvin Meadows PROCEDURE: Informed consent was obtained. The risks of the procedure were extensively explained incl uding risk of damage to surrounding bowel with perforation and need for additional procedures. Proced ure was performed in the ultrasound procedure suite. Ultrasound imaging of the abdomen demonstrate as citic fluid. An appropriate access site was localized to the right lower abdomen. Timeout was taken p er protocol. The skin was prepped and draped in the usual sterile fashion and then locally anesthetiz ed with 1% lidocaine. The peritoneal cavity was then accessed via a 5-Malaysian one-step needle/cathete r. Approximately 4700 cc of clear straw-colored fluid was obtained. Samples were sent to the lab for analysis. Postprocedural imaging of the abdomen demonstrate a minimal amount of abdominal fluid. Patient tolerated procedure well without immediate complication. Hemostasis at the procedural site w as obtained with a sterile bandage placed. The patient was monitored in the holding area following th e procedure and was subsequently discharged in stable condition. IMPRESSION: Ultrasound guided paracentesis, with approximately 4700 cc of clear straw-colored fluid drained. Path ology results pending. No immediate complications were evident. Patient was sent to the ER following the paracentesis for evaluation for shortness of breath and edema.
== END 2023-05-25 12:00 ==
LOC: RADPROMAIN 08:02
PROVIDERS: ATTEND Internal Medicine Hematology & Oncology
DX: R18.8 Other ascites (principal)
CPT/HCPCS: 82565; 85025; 85610; 36430; 36415; 49083; P9073; P9047; 85049

== ENCOUNTER 2023-05-25 12:00 | Inpatient (IN) | payer MEDICARE ==
--- NOTE | 2023-05-25 12:42 | ED ---
General Adult HPI - General Chief complaint: Weakness Stated complaint: Increased Weakness Time Seen by Provider: 05/25/23 12:15 Source: patient, RN notes reviewed, old records reviewed Mode of arrival: wheelchair Limitations: no limitations - History of Present Illness Initial comments: This is a 72-year-old female who presents to the emergency department stating that she was sent down after she had a paracentesis. Staff there felt that she was more short of breath and weak. Than her baseline however patient states she feels the same as she did last time when she left after her paracentesis. Patient's hemoglobin dropped from 9.8-8.7. Patient denies any fever or chills. Patient denies any abdominal pain or chest pain. Patient Nuys any palpitations. Patient has a headache patient denies any vomiting or diarrhea. - Related Data Home Medications Medication Instructions Recorded Confirmed ALPRAZolam [Xanax] 1 mg PO BID PRN 08/29/19 05/25/23 hydrOXYzine HCL [Atarax] 25 - 75 mg PO Q6H PRN 08/29/19 05/25/23 traMADol HCL 50 mg PO DAILY PRN MDD 2 tabs 08/29/19 05/25/23 Ergocalciferol (Vitamin D2) 1,250 mcg PO WE 08/29/21 05/25/23 [Drisdol (50,000 Iu)] Hizentra 20% Soln 50 ml SQ WEEKLY 08/29/21 05/25/23 Allergies Allergy/AdvReac Type Severity Reaction Status Date / Time sulfamethoxazole AdvReac Nausea Verified 05/25/23 12:34 [From Bactrim] trimethoprim [From Bactrim] AdvReac Nausea Verified 05/25/23 12:34 Review of Systems ROS Statement: Those systems with pertinent positive or pertinent negative responses have been documented in the HPI. ROS Other: All systems not noted in ROS Statement are negative. 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 Severe recalcitrant dermatitis, Allergic rhinitis. diffuse lymphadenopathy, liver failure, kidney failure, hepatorenal syndrome History of Any Multi-Drug Resistant Organisms: MRSA Date of last positivie culture/infection: 08/23/2009 MDRO Source:: open wound Past Surgical History: Hysterectomy Additional Past Surgical History / Comment(s): common variable immune deficicency, multiple paracentesis, colonoscopy with polyp removal, TIPS Jan 2023 Past Anesthesia/Blood Transfusion Reactions: No Reported Reaction Additional Past Anesthesia/Blood Transfusion Reaction / Comment(s): Slow to wake up. Past Psychological History: Anxiety, Depression Smoking Status: Never smoker Past Alcohol Use History: None Reported Past Drug Use History: None Reported - Past Family History Father Additional Family Medical History / Comment(s): Patient's father at age 92 from CVA. He also had a degenerative muscle disorder. Mother Additional Family Medical History / Comment(s): Mother is alive at age 90 with no major medical problems. Brother(s) Additional Family Medical History / Comment(s): Patient is a total of 4 siblings with no major medical problems. Patient has one daughter with no major medical problems. General Exam - General Exam Comments Initial Comments: GENERAL: Patient is well-developed and well-nourished. Patient is nontoxic and well- hydrated and is in no acute distress. ENT: Neck is soft and supple. No significant lymphadenopathy is noted. Oropharynx is clear. Moist mucous membranes. Neck has full range of motion without eliciting any pain. EYES: The sclera were anicteric and conjunctiva were pink and moist. Extraocular movements were intact and pupils were equal round and reactive to light. Eyelids were unremarkable. PULMONARY: Unlabored respirations. Good breath sounds bilaterally. No audible rales rhonc hi or wheezing was noted. CARDIOVASCULAR: There is a regular rate and rhythm without any murmurs gallops or rubs. ABDOMEN: Soft and nontender with normal bowel sounds. SKIN: Skin is clear with no lesions or rashes and otherwise unremarkable. NEUROLOGIC: Patient is alert and oriented x3. Cranial nerves II through XII are grossly intact. Motor and sensory are also intact. Normal speech, volume and content. Symmetrical smile. MUSCULOSKELETAL: Normal extremities with adequate strength and full range of motion. 2+ edema bilaterally LYMPHATICS: No significant lymphadenopathy is noted PSYCHIATRIC: Normal psychiatric evaluation. Limitations: no limitations Course Vital Signs 05/25/23 05/25/23 12:13 13:37 Temperature 98.1 F Pulse Rate 83 80 Respiratory 16 18 Rate Blood Pressure 138/71 147/75 O2 Sat by Pulse 98 98 Oximetry Medical Decision Making - Medical Decision Making EKG is interpreted per myself. EKG shows sinus rhythm at 80 bpm PA interval 185 QRS is 81 QT interval is 4 6 QTc is 442. Patient's EKG shows no ST segment ova tion or depression. Was pt. sent in by a medical professional or institution (JAKE Ellison, PALLIATIVE CARE NURSE, urgent c are, hospital, or usp...) When possible be specific @ -Patient was sent down from interventional radiology to be evaluated by the ER physician Did you speak to anyone other than the patient for history (EMS, parent, family, police, friend...)? What history was obtained from this source @ -No Did you review nursing and triage notes (agree or disagree)? Why? @ -I reviewed and agree with nursing and triage notes Were old charts reviewed (outside hosp., previous admission, EMS record, old EKG, old radiological studies, urgent care reports/EKG's, usp records)? Report findings @ -I reviewed prior charts and prior lab work and prior radiological studies on this patient Differential Diagnosis (chest pain, altered mental status, abdominal pain women, abdominal pain men, vaginal bleeding, weakness, fever, dyspnea, syncope, headache, dizziness, GI bleed, back pain, seizure, CVA, palpatations, mental health, musculoskeletal)? @ -Differential Weakness: Hypoglycemia, shock, sepsis, hyponatremia, anemia, infection, SC, ETOH, adverse medicine reaction, overdose, stroke, this is not meant to be an all-inclusive list. EKG interpreted by me (3pts min.). @ -As above X-rays interpreted by me (1pt min.). @ -Chest x-ray shows acute pulmonary edema CT interpreted by me (1pt min.). @ -None done U/S interpreted by me (1pt. min.). @ -None done What testing was considered but not performed or refused? (CT, X-rays, U/S, labs)? Why? @ -None What meds were considered but not given or refused? Why? @ -None Did you discuss the management of the patient with other professionals (roberto diop i.e. JAKE Ellison, PALLIATIVE CARE NURSE, lab, RT, psych nurse, director of social work, counselling psychologist, teacher, property and supply officer, case management manager)? Give summary @ -[facility] admit the patient wrote admitting orders Was smoking cessation discussed for >3mins.? @ -No Was critical care preformed (if so, how long)? @ -No Were there social determinants of health that impacted care today? How? (Homelessness, low income, unemployed, alcoholism, drug addiction, transportatio n, low edu. Level, literacy, decrease access to med. care, shelter, rehab)? @ -No Was there de-escalation of care discussed even if they declined (Discuss DNR or withdrawal of care, Hospice)? DNR status @ -No What co-morbidities impacted this encounter? (DM, HTN, Smoking, COPD, CAD, Cancer, CVA, ARF, Chemo, Hep., AIDS, mental health diagnosis, sleep apnea, morbid obesity)? @ -None Was patient admitted / discharged? Hospital course, mention meds given and route, prescriptions, significant lab abnormalities, going to OR and other pertinent info. @ -Patient had acute pulmonary edema I gave the patient 20 mg of Lasix and because she was having shortness of breath and some dizziness I [facility] and I consult the cardiology Undiagnosed new problem with uncertain prognosis? @ -No Drug Therapy requiring intensive monitoring for toxicity (Heparin, Nitro, In sulin, Cardizem)? @ -No Were any procedures done? @ -No Diagnosis/symptom? @ -Acute pulmonary edema Acute, or Chronic, or Acute on Chronic? @ -Acute Uncomplicated (without systemic symptoms) or Complicated (systemic symptoms)? @ -Complicated Side effects of treatment? @ -No Exacerbation, Progression, or Severe Exacerbation? @ -No Poses a threat to life or bodily function? How? (Chest pain, USA, SC, pneumonia, PE, COPD, DKA, ARF, appy, cholecystitis, CVA, Diverticulitis, Homicidal, Suicidal, threat to staff... and all critical care pts) @ -Yes this could lead to hypoxia and some endorgan dysfunction - Lab Data Result diagrams: 05/25/23 12:56 05/25/23 12:56 Lab Results 05/25/23 05/25/23 05/25/23 Range/Units 12:56 12:56 12:56 WBC 2.3 L (3.8-10.6) k/uL RBC 3.05 L (3.80-5.40) m/uL Hgb 8.7 L (11.4-16.0) gm/dL Hct 25.3 L (34.0-46.0) % MCV 82.8 (80.0-100.0) fL MCH 28.5 (25.0-35.0) pg MCHC 34.4 (31.0-37.0) g/dL RDW 17.5 H (11.5-15.5) % Plt Count 42 L (150-450) k/uL MPV 8.8 Neutrophils % 54 % Lymphocytes % 22 % Monocytes % 11 % Eosinophils % 10 % Basophils % 1 % Neutrophils # 1.2 L (1.3-7.7) k/uL Lymphocytes # 0.5 L (1.0-4.8) k/uL Monocytes # 0.3 (0-1.0) k/uL Eosinophils # 0.2 (0-0.7) k/uL Basophils # 0.0 (0-0.2) k/uL Hypochromasia Slight Poikilocytosis Slight Anisocytosis Slight PT 12.0 (10.0-12.5) sec INR 1.1 (<1.2) APTT 28.2 (22.0-30.0) sec Sodium 140 (137-145) mmol/L Potassium 3.8 (3.5-5.1) mmol/L Chloride 112 H (98-107) mmol/L Carbon Dioxide 19 L (22-30) mmol/L Anion Gap 9 mmol/L BUN 30 H (7-17) mg/dL Creatinine 1.61 H (0.52-1.04) mg/dL Est GFR (CKD-EPI)AfAm 37 (>60 ml/min/1.73 sqM) Est GFR (CKD-EPI)NonAf 32 (>60 ml/min/1.73 sqM) Glucose 87 (74-99) mg/dL Plasma Lactic Acid Duglas (0.7-2.0) mmol/L Calcium 8.3 L (8.4-10.2) mg/dL Magnesium 1.8 (1.6-2.3) mg/dL Total Bilirubin 1.3 (0.2-1.3) mg/dL AST 62 H (14-36) U/L ALT 48 H (4-34) U/L Alkaline Phosphatase 211 H (38-126) U/L Troponin I (0.000-0.034) ng/mL NT-Pro-B Natriuret Pep 1350 pg/mL Total Protein 4.7 L (6.3-8.2) g/dL Albumin 3.0 L (3.5-5.0) g/dL 05/25/23 05/25/23 Range/Units 12:56 12:56 WBC (3.8-10.6) k/uL RBC (3.80-5.40) m/uL Hgb (11.4-16.0) gm/dL Hct (34.0-46.0) % MCV (80.0-100.0) fL MCH (25.0-35.0) pg MCHC (31.0-37.0) g/dL RDW (11.5-15.5) % Plt Count (150-450) k/uL MPV Neutrophils % % Lymphocytes % % Monocytes % % Eosinophils % % Basophils % % Neutrophils # (1.3-7.7) k/uL Lymphocytes # (1.0-4.8) k/uL Monocytes # (0-1.0) k/uL Eosinophils # (0-0.7) k/uL Basophils # (0-0.2) k/uL Hypochromasia Poikilocytosis Anisocytosis PT (10.0-12.5) sec INR (<1.2) APTT (22.0-30.0) sec Sodium (137-145) mmol/L Potassium (3.5-5.1) mmol/L Chloride (98-107) mmol/L Carbon Dioxide (22-30) mmol/L Anion Gap mmol/L BUN (7-17) mg/dL Creatinine (0.52-1.04) mg/dL Est GFR (CKD-EPI)AfAm (>60 ml/min/1.73 sqM) Est GFR (CKD-EPI)NonAf (>60 ml/min/1.73 sqM) Glucose (74-99) mg/dL Plasma Lactic Acid Duglas 1.1 (0.7-2.0) mmol/L Calcium (8.4-10.2) mg/dL Magnesium (1.6-2.3) mg/dL Total Bilirubin (0.2-1.3) mg/dL AST (14-36) U/L ALT (4-34) U/L Alkaline Phosphatase (38-126) U/L Troponin I 0.013 (0.000-0.034) ng/mL NT-Pro-B Natriuret Pep pg/mL Total Protein (6.3-8.2) g/dL Albumin (3.5-5.0) g/dL Disposition Clinical Impression: Pulmonary edema Disposition: ADMITTED IP TO THIS HOSP Referrals: Piotr Figueroa DO [Primary Care Provider] - 1-2 days Time of Disposition: 14:04
[2023-05-25 13:18] LABS: ALT 48 U/L (4-34); AST 62 U/L (14-36); African American GFR (CKD) 37 (>60 ml/min/1.73 sqM); Alkaline Phosphatase 211 U/L (38-126); Anion Gap 9 mmol/L; Blood Urea Nitrogen 30 mg/dL (7-17); Calcium 8.3 mg/dL (8.4-10.2); Carbon Dioxide 19 mmol/L (22-30); Chloride 112 mmol/L (98-107); Glucose 87 mg/dL (74-99); Magnesium 1.8 mg/dL (1.6-2.3); Non-African American GFR(CKD) 32 (>60 ml/min/1.73 sqM); Potassium 3.8 mmol/L (3.5-5.1); Sodium 140 mmol/L (137-145); Total Bilirubin 1.3 mg/dL (0.2-1.3); Total Protein 4.7 g/dL (6.3-8.2)
--- NOTE | 2023-05-25 13:19 | XR ---
EXAMINATION TYPE: XR chest 2V DATE OF EXAM: 05/25/2023 1:06 PM CLINICAL INDICATION:Female, 72 years old with history of Weakness; PHH COMPARISON: Chest radiographs from 03/21/2022 TECHNIQUE: XR chest 2V Frontal and lateral views of the chest. FINDINGS: Lungs/Pleura: There is no evidence of pleural effusion, focal consolidation, or pneumothorax. Pulmonary vascularity: Pulmonary vascular congestion. Heart/mediastinum: Cardiomediastinal silhouette is enlarged and stable. Musculoskeletal: No acute osseous pathology. IMPRESSION: Cardiomegaly and new mild pulmonary vascular congestion. Correlate with BNP for congestive heart fail ure.
[2023-05-25 13:22] LABS: Anisocytosis Slight; Basophils % (A) 1 %; Eosinophils # (A) 0.2 k/uL (0-0.7); Eosinophils % (A) 10 %; HCT 25.3 % (34.0-46.0); HGB 8.7 gm/dL (11.4-16.0); Hypochromasia Slight; Lymphocytes # (A) 0.5 k/uL (1.0-4.8); Lymphocytes % (A) 22 %; MCH 28.5 pg (25.0-35.0); MCHC 34.4 g/dL (31.0-37.0); MCV 82.8 fL (80.0-100.0); Mean Platelet Volume 8.8; Monocytes # (A) 0.3 k/uL (0-1.0); Monocytes % (A) 11 %; Neutrophils # (A) 1.2 k/uL (1.3-7.7); Neutrophils % (A) 54 %; Poikilocytosis Slight; RBC 3.05 m/uL (3.80-5.40); RDW 17.5 % (11.5-15.5); WBC 2.3 k/uL (3.8-10.6)
[2023-05-25 13:23] LABS: Platelet Count 42 k/uL (150-450)
[2023-05-25 13:26] LABS: NT-Pro-B-Type Natriuretic Pept 1350 pg/mL
[2023-05-25 13:30] LABS: INR 1.1 (<1.2); Partial Thromboplastin Time 28.2 sec (22.0-30.0)
[2023-05-25] MEDS: FUROSEMIDE 10 MG/ML 2 ML VIAL IV ONE (13:39)
[2023-05-25] MEDS: FUROSEMIDE 10 MG/ML 2 ML VIAL IV SCH (16:43)
[2023-05-25 18:24] LABS: Anisocytosis Slight; HCT 24.5 % (34.0-46.0); HGB 8.4 gm/dL (11.4-16.0); MCH 28.3 pg (25.0-35.0); MCHC 34.2 g/dL (31.0-37.0); MCV 82.6 fL (80.0-100.0); Mean Platelet Volume 7.1; Poikilocytosis Slight; RBC 2.96 m/uL (3.80-5.40); RDW 17.7 % (11.5-15.5); WBC 2.1 k/uL (3.8-10.6)
[2023-05-25 18:26] LABS: Platelet Count 33 k/uL (150-450)
[2023-05-25 19:08] LABS: Eosinophils # (M) 0.17 k/uL (0-0.7); Lymphocytes # (M) 0.48 k/uL (1.0-4.8); Monocytes # (M) 0.27 k/uL (0-1.0); Neutrophils # (M) 1.18 k/uL (1.3-7.7); Neutrophils % (M) 56 %; Nucleated Red Blood Cells 0 /100 WBC (0-0); Total Cells Counted 100
[2023-05-25 19:09] LABS: Anisocytosis (M) Present; Hypochromasia (M) Present
[2023-05-25 20:32] LABS: Anisocytosis Slight; Basophils % (A) 1 %; Eosinophils # (A) 0.2 k/uL (0-0.7); Eosinophils % (A) 7 %; HGB 8.9 gm/dL (11.4-16.0); Hypochromasia Slight; Lymphocytes # (A) 0.5 k/uL (1.0-4.8); Lymphocytes % (A) 21 %; MCH 27.9 pg (25.0-35.0); MCHC 33.1 g/dL (31.0-37.0); MCV 84.2 fL (80.0-100.0); Mean Platelet Volume 9.2; Monocytes # (A) 0.2 k/uL (0-1.0); Monocytes % (A) 9 %; Neutrophils # (A) 1.5 k/uL (1.3-7.7); Neutrophils % (A) 58 %; Poikilocytosis Slight; RDW 17.8 % (11.5-15.5); WBC 2.5 k/uL (3.8-10.6)
[2023-05-25] MEDS ORDERED: NON FORMULARY DRUG (Tramadol Hcl 50 MG Tablet) PO PRN (20:37)
[2023-05-25] MEDS ORDERED: traMADol 50 MG TAB PO PRN (20:38)
[2023-05-25 20:40] LABS: Platelet Count 46 k/uL (150-450)
[2023-05-25] MEDS: ALPRAZolam 1 MG TAB PO SCH (22:11)
[2023-05-25] MEDS: SENNOSIDES 8.6 MG TAB PO PRN (22:11)
[2023-05-25] MEDS: HEPARIN SODIUM,PORCINE 5,000 UNIT/ML 1 ML VIAL SQ SCH (22:12)
--- NOTE | 2023-05-25 22:35 | P.HPIM ---
History of Present Illness H&P Date: 05/25/23 Chief Complaint: Shortness of breath Patient is a 72-year-old female with a past medical history of liver cirrhosis with no definitive etiology, common variable immunodeficiency on IVIG infusions, hepatorenal syndrome, recurrent ascites undergoing weekly paracentesis, CKD st age IIIb and anxiety/depression initially presented to hospital for paracentesis. Patient was sent to ER due to worsening shortness of breath and weakness postprocedure. Otherwise patient denies any complaints of fever or chills. Denies any complaints of chest pain. No abdominal pain. No diarrhea. No nausea or vomiting. Patient states that she has been having worsening leg swelling and generalized swelling. Chest x-ray showed cardiomegaly and new mild pulmonary vascular congestion. Correlate with BNP for congestive heart failure. EKG showed sinus rhythm with sinus arrhythmia Laboratory data showed WBC 2.3 hemoglobin 8.7 and platelets 42 Sodium 140 potassium 3.8 chloride 112 bicarb is 19 BUN 30 and creatinine 1.61 magnesium 1.8 AST 62 ALT 48 and alcohol 211 Troponin 0.013 and proBNP 1350 and albumin 3.0 Review of Systems Constitutional: Patient denies any fever or chills . No generalized weakness or weight loss. Abdomen: Patient denied nausea vomiting and diarrhea and abdominal pain. Cardiovascular: Patient denies any chest pain. Mild short of breath no palpitations. Leg swelling. Respiratory: patient denied any cough is from production. Mild shortness of breath Neurologic: Patient denied any numbness or tingling headache. Musculoskeletal: Patient denies any complaints of joint swelling or deformity. Skin: Negative Psychiatric: Negative Endocrine: No heat or cold intolerance. No recent weight gain. Genitourinary: No dysuria or hematuria. 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 Severe recalcitrant dermatitis, Allergic rhinitis. diffuse lymphadenopathy, liver failure, kidney failure, hepatorenal syndrome, weekly paracentesis History of Any Multi-Drug Resistant Organisms: MRSA Date of last positivie culture/infection: 08/23/2009 MDRO Source:: open wound Past Surgical History: Hysterectomy Additional Past Surgical History / Comment(s): common variable immune de ficicency TIPS Jan 2023 and apr 2023 Past Anesthesia/Blood Transfusion Reactions: No Reported Reaction Additional Past Anesthesia/Blood Transfusion Reaction / Comment(s): Slow to wake up. Past Psychological History: Anxiety, Depression Smoking Status: Never smoker Past Alcohol Use History: None Reported Additional Past Alcohol Use History / Comment(s): . Past Drug Use History: None Reported - Past Family History Father Additional Family Medical History / Comment(s): Patient's father at age 92 from CVA. He also had a degenerative muscle disorder. Mother Additional Family Medical History / Comment(s): Mother is alive at age 90 with no major medical problems. Brother(s) Additional Family Medical History / Comment(s): Patient is a total of 4 siblings with no major medical problems. Patient has one daughter with no major medical problems. Medications and Allergies Home Medications Medication Instructions Recorded Confirmed Type ALPRAZolam [Xanax] 1 mg PO HS 08/29/19 05/25/23 History traMADol HCL 50 mg PO BID PRN 08/29/19 05/25/23 History Ergocalciferol (Vitamin D2) 1,250 mcg PO WE 08/29/21 05/25/23 History [Drisdol (50,000 Iu)] Allergies Allergy/AdvReac Type Severity Reaction Status Date / Time sulfamethoxazole AdvReac Nausea Verified 05/25/23 15:08 [From Bactrim] trimethoprim [From Bactrim] AdvReac Nausea Verified 05/25/23 15:08 Physical Exam Vitals: Vital Signs Temp Pulse Resp BP Pulse Ox 05/25/23 19:09 97.9 F 76 18 142/78 97 05/25/23 17:27 81 18 148/69 05/25/23 16:00 98.1 F 78 18 142/72 97 05/25/23 14:06 84 18 136/72 05/25/23 13:37 80 18 147/75 98 05/25/23 12:13 98.1 F 83 16 138/71 98 Intake and Output 05/25/23 05/25/23 05/25/23 06:59 14:59 22:59 Other: Weight 68.039 kg 68.039 kg PHYSICAL EXAMINATION: Patient is lying in the bed comfortably, no acute distress, awake alert and oriented.. HEENT: Normocephalic. Neck is supple. Pupils reactive. Nostrils clear. Oral cavity is moist. Neck reveals no JVD, carotid bruits, or thyromegaly. CHEST EXAMINATION: Trachea is central. Symmetrical expansion. Bibasilar diminished sounds. No wheezing or rhonchi.. CARDIAC: Normal S1, S2 with no gallops. No murmurs ABDOMEN: Soft. Abdominal distention with ascites, nontender. Bowel sounds present. No organomegaly. No abdominal bruits. Extremities: Bilateral 3+ pedal edema. No clubbing or cyanosis Neurologically awake, alert, oriented x3 with well-coordinated movements. No focal deficits noted Skin: No rash or skin lesions. Psychiatric: Coperative. Nonsuicidal Musculoskeletal: No joint swelling or deformity. Normal range of motion. Results CBC & Chem 7: 05/25/23 20:16 05/25/23 12:56 Labs: Abnormal Lab Results - Last 24 Hours (Table) 05/25/23 05/25/23 05/25/23 Range/Units 12:56 12:56 16:44 WBC 2.3 L 2.1 L (3.8-10.6) k/uL RBC 3.05 L 2.96 L (3.80-5.40) m/uL Hgb 8.7 L 8.4 L (11.4-16.0) gm/dL Hct 25.3 L 24.5 L (34.0-46.0) % RDW 17.5 H 17.7 H (11.5-15.5) % Plt Count 42 L 33 L (150-450) k/uL Neutrophils # 1.2 L (1.3-7.7) k/uL Neutrophils # (Manual) 1.18 L (1.3-7.7) k/uL Lymphocytes # 0.5 L (1.0-4.8) k/uL Lymphocytes # (Manual) 0.48 L (1.0-4.8) k/uL Chloride 112 H (98-107) mmol/L Carbon Dioxide 19 L (22-30) mmol/L BUN 30 H (7-17) mg/dL Creatinine 1.61 H (0.52-1.04) mg/dL Calcium 8.3 L (8.4-10.2) mg/dL AST 62 H (14-36) U/L ALT 48 H (4-34) U/L Alkaline Phosphatase 211 H (38-126) U/L Total Protein 4.7 L (6.3-8.2) g/dL Albumin 3.0 L (3.5-5.0) g/dL Thrombosis Risk Factor Assmnt - DVT/VTE Prophylaxis DVT/VTE Prophylaxis: Pharmacologic Prophylaxis ordered - Choose All That Apply Other Risk Factors: Yes Each Risk Factor Represents 2 Points: Age 61-74 years Thrombosis Risk Factor Assessment Total Risk Factor Score: 2 Thrombosis Risk Factor Assessment Level: Low Risk Assessment and Plan Assessment: Worsening shortness of breath secondary to fluid overload due to liver cirrhosis and possible acute on chronic HFpEF. Normal EF as per echocardiogram on 10/20/2022. Chronic kidney disease stage IIIb with baseline creatinine level 1.4-1.6 related nephrosclerosis Ascites associated with liver cirrhosis. Etiology unknown. On follow-up with GI as an outpatient. Patient is undergoing paracentesis weekly. Pancytopenia secondary to splenomegaly and liver cirrhosis Elevated liver enzymes Common variable immunodeficiency. On IVIG infusions History of mediastinal lymphadenopathy status post aspiration biopsy previously was negative for malignancy. DVT prophylaxis with heparin subcu Plan: Patient will be 22 IV Lasix 20 mg every 12 and follow-up renal function closely. Continue telemetry. Cardiology was consulted due to possible underlying CHF. Patient will need outpatient follow-up with GI due to her liver cirrhosis. Ordered CMP and CBC tomorrow. Patient did improve symptomatically with IV Lasix in the ER. Time with Patient: Greater than 30
[2023-05-26 07:21] LABS: Anisocytosis Slight; Basophils % (A) 1 %; Eosinophils # (A) 0.2 k/uL (0-0.7); Eosinophils % (A) 7 %; HCT 25.2 % (34.0-46.0); HGB 8.3 gm/dL (11.4-16.0); Lymphocytes # (A) 0.6 k/uL (1.0-4.8); Lymphocytes % (A) 26 %; MCH 27.6 pg (25.0-35.0); MCHC 32.9 g/dL (31.0-37.0); MCV 83.9 fL (80.0-100.0); Mean Platelet Volume 8.2; Monocytes # (A) 0.2 k/uL (0-1.0); Monocytes % (A) 9 %; Neutrophils # (A) 1.2 k/uL (1.3-7.7); Neutrophils % (A) 54 %; Poikilocytosis Slight; RDW 17.6 % (11.5-15.5); WBC 2.3 k/uL (3.8-10.6)
[2023-05-26 07:28] LABS: Platelet Count 45 k/uL (150-450)
[2023-05-26 07:59] LABS: ALT 44 U/L (4-34); AST 63 U/L (14-36); African American GFR (CKD) 30 (>60 ml/min/1.73 sqM); Albumin 2.5 g/dL (3.5-5.0); Alkaline Phosphatase 202 U/L (38-126); Anion Gap 5 mmol/L; Blood Urea Nitrogen 34 mg/dL (7-17); Carbon Dioxide 24 mmol/L (22-30); Chloride 110 mmol/L (98-107); Glucose 92 mg/dL (74-99); Non-African American GFR(CKD) 26 (>60 ml/min/1.73 sqM); Potassium 3.6 mmol/L (3.5-5.1); Sodium 139 mmol/L (137-145); Total Bilirubin 1.2 mg/dL (0.2-1.3); Total Protein 4.2 g/dL (6.3-8.2)
[2023-05-26] MEDS ORDERED: hydrOXYzine HCL 10 MG TAB PO PRN ×2 (09:01→11:22)
[2023-05-26] MEDS: hydrOXYzine HCL 10 MG TAB PO STA (10:02)
--- NOTE | 2023-05-26 10:16 | US ---
EXAMINATION TYPE: US venous doppler duplex LE RT DATE OF EXAM: 05/26/2023 9:05 AM COMPARISON: US 2019 CLINICAL INDICATION: Female, 72 years old with history of DVT; Right leg swelling SIDE PERFORMED: Right TECHNIQUE: The lower extremity deep venous system is examined utilizing real time linear array sonog eula with graded compression, doppler sonography and color-flow sonography. VESSELS IMAGED: Common Femoral Vein Deep Femoral Vein Greater Saphenous Vein * Femoral Vein Popliteal Vein Small Saphenous Vein * Proximal Calf Veins (* superficial vessels) Right Leg: Appears negative for DVT IMPRESSION: Grayscale, color doppler, spectral doppler imaging performed of the deep veins of the lo wer extremities. There is normal flow, compressibility, vascular waveforms.
--- NOTE | 2023-05-26 10:42 | P.CRDCN ---
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 Patient does not follow with a clinical exercise physiologist. Patient states that she follows at the [facility] for her chronic conditions. We have been asked to see the patient in consultation for congestive heart failure. Patient examined at the bedside. Patient was sent to the emergency room secondary to shortness of breath after having a paracent esis performed. Patient currently denies chest pain or pressure. She does report significantly worsened lower extremity edema. She also reports that she has been retaining fluid at home. The patient was started on IV Lasix. DIAGNOSTICS: - EKG reveals sinus mechanism with no signs of acute ischemia. - Chest xray cardiomegaly and new mild pulmonary vascular congestion - Laboratory data: WBC 2.3. Hemoglobin 8.3. Platelet count 45. Sodium 139. Potassium 3.6. BUN 34. Creatinine 1.9. AST 63. ALT 44. proBNP 1350. - Current home cardiac medications include none. -Echocardiogram in October 2022 revealed ejection fraction 60 to 65%, mild MR, trace to mild AR, mild to moderate TR REVIEW OF SYSTEMS: At the time of my exam: CONSTITUTIONAL: Denies fever or chills. HEENT: Denies blurred vision, vision changes, or eye pain. Denies hemoptysis CARDIOVASCULAR: Denies chest pain. Denies orthopnea. Denies PND. Denies palpitations RESPIRATORY: Denies shortness of breath. GASTROINTESTINAL: Denies abdominal pain. Denies nausea or vomiting. HEMATOLOGIC: Denies bleeding disorders. GENITOURINARY: Denies any blood in urine. SKIN: Denies pruitis. Denies rash. PHYSICAL EXAM: VITAL SIGNS: Reviewed. GENERAL: Well-developed in no acute distress. HEENT: Head is normocephalic. Pupils are equal, round. Sclerae anicteric. Mucous membranes of the mouth are moist. Neck supple. No JVD or thyromegaly LUNGS: Respirations even and unlabored. Lungs with crackles bilaterally HEART: Regular rate and rhythm. S1 and S2 heard. Systolic murmur noted ABDOMEN: Soft. Nondistended. Nontender. EXTREMITIES: Normal range of motion. No clubbing or cyanosis. Peripheral pulses intact. 3-4+ bilateral lower extremity edema NEUROLOGIC: Awake and alert. Oriented x 3. 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 Signing provider agrees with the documented findings, assessment, and plan of care documented by BILINGUAL PATIENT SUPPORT CASEWORKER as a scribe. Past Medical History Past Medical History: Liver Disease Additional Past Medical History / Comment(s): Common variable immunodeficiency, 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 Severe recalcitrant dermatitis, Allergic rhinitis. diffuse lymphadenopathy, liver failure, kidney failure, hepatorenal syndrome, weekly paracentesis History of Any Multi-Drug Resistant Organisms: MRSA Date of last positivie culture/infection: 08/23/2009 MDRO Source:: open wound Past Surgical History: Hysterectomy Additional Past Surgical History / Comment(s): common variable immune deficicency TIPS Jan 2023 and apr 2023 Past Anesthesia/Blood Transfusion Reactions: No Reported Reaction Additional Past Anesthesia/Blood Transfusion Reaction / Comment(s): Slow to wake up. Past Psychological History: Anxiety, Depression Smoking Status: Never smoker Past Alcohol Use History: None Reported Additional Past Alcohol Use History / Comment(s): . Past Drug Use History: None Reported - Past Family History Father Additional Family Medical History / Comment(s): Patient's father at age 92 from CVA. He also had a degenerative muscle disorder. Mother Additional Family Medical History / Comment(s): Mother is alive at age 90 with no major medical problems. Brother(s) Additional Family Medical History / Comment(s): Patient is a total of 4 siblings with no major medical problems. Patient has one daughter with no major medical problems. Medications and Allergies Home Medications Medication Instructions Recorded Confirmed Type ALPRAZolam [Xanax] 1 mg PO HS 08/29/19 05/25/23 History traMADol HCL 50 mg PO BID PRN 08/29/19 05/25/23 History Ergocalciferol (Vitamin D2) 1,250 mcg PO WE 08/29/21 05/25/23 History [Drisdol (50,000 Iu)] Allergies Allergy/AdvReac Type Severity Reaction Status Date / Time sulfamethoxazole AdvReac Nausea Verified 05/25/23 15:08 [From Bactrim] trimethoprim [From Bactrim] AdvReac Nausea Verified 05/25/23 15:08 Physical Exam Vitals: Vital Signs Temp Pulse Pulse Resp BP BP BP 05/26/23 07:39 98.9 F 86 18 147/62 05/26/23 04:00 98 F 85 16 129/65 05/25/23 23:34 98.1 F 90 16 117/56 05/25/23 20:00 97.9 F 82 16 144/67 05/25/23 19:09 97.9 F 76 18 142/78 05/25/23 17:27 81 18 148/69 05/25/23 16:00 98.1 F 78 18 142/72 05/25/23 14:06 84 18 136/72 05/25/23 13:37 80 18 147/75 05/25/23 12:13 98.1 F 83 16 138/71 Pulse Ox 05/26/23 07:39 94 L 05/26/23 04:00 95 05/25/23 23:34 93 L 05/25/23 20:00 100 05/25/23 19:09 97 05/25/23 17:27 05/25/23 16:00 97 05/25/23 14:06 05/25/23 13:37 98 05/25/23 12:13 98 Intake and Output 05/25/23 05/26/23 05/26/23 22:59 06:59 14:59 Intake Total 540 Output Total 250 Balance 540 -250 Intake: Oral 540 Output: Urine 250 Other: # Voids 1 1 Weight 68.039 kg 74.1 kg Results 05/26/23 06:59 05/26/23 06:59 Cardiac Enzymes 05/25/23 05/25/23 05/26/23 Range/Units 12:56 12:56 06:59 AST 62 H 63 H (14-36) U/L Troponin I 0.013 (0.000-0.034) ng/mL Coagulation 05/25/23 Range/Units 12:56 PT 12.0 (10.0-12.5) sec APTT 28.2 (22.0-30.0) sec CBC 05/25/23 05/25/23 05/25/23 Range/Units 12:56 16:44 20:16 WBC 2.3 L 2.1 L 2.5 L (3.8-10.6) k/uL RBC 3.05 L 2.96 L 3.20 L (3.80-5.40) m/uL Hgb 8.7 L 8.4 L 8.9 L (11.4-16.0) gm/dL Hct 25.3 L 24.5 L 27.0 L (34.0-46.0) % Plt Count 42 L 33 L 46 L (150-450) k/uL 05/26/23 Range/Units 06:59 WBC 2.3 L (3.8-10.6) k/uL RBC 3.00 L (3.80-5.40) m/uL Hgb 8.3 L (11.4-16.0) gm/dL Hct 25.2 L (34.0-46.0) % Plt Count 45 L (150-450) k/uL Comprehensive Metabolic Panel 05/25/23 05/26/23 Range/Units 12:56 06:59 Sodium 140 139 (137-145) mmol/L Potassium 3.8 3.6 (3.5-5.1) mmol/L Chloride 112 H 110 H (98-107) mmol/L Carbon Dioxide 19 L 24 (22-30) mmol/L BUN 30 H 34 H (7-17) mg/dL Creatinine 1.61 H 1.90 H (0.52-1.04) mg/dL Glucose 87 92 (74-99) mg/dL Calcium 8.3 L 8.0 L (8.4-10.2) mg/dL AST 62 H 63 H (14-36) U/L ALT 48 H 44 H (4-34) U/L Alkaline Phosphatase 211 H 202 H (38-126) U/L Total Protein 4.7 L 4.2 L (6.3-8.2) g/dL Albumin 3.0 L 2.5 L (3.5-5.0) g/dL Current Medications Generic Name Dose Route Start Last Admin Trade Name Freq PRN Reason Stop Dose Admin Alprazolam 1 mg 05/25/23 21:00 05/25/23 22:11 Alprazolam 1 Mg Tab PO 1 mg HS HELLEN Administration Ergocalciferol 1,250 mcg 05/27/23 09:00 Ergocalciferol 1,250 Mcg (50,000 Iu) Capsule PO We@0900 HELLEN Furosemide 20 mg 05/26/23 02:00 05/25/23 16:43 Furosemide 10 Mg/Ml 2 Ml Vial IV 20 mg Q12H HELLEN Administration Heparin Sodium (Porcine) 5,000 unit 05/25/23 21:00 05/25/23 22:12 Heparin Sodium,Porcine 5,000 Unit/Ml 1 Ml Vial SQ 5,000 unit Q12HR HELLEN Administration Hydroxyzine HCl 10 mg 05/26/23 09:01 Hydroxyzine Hcl 10 Mg Tab PO BID PRN Moderate to Severe Itching Senna 8.6 mg 05/25/23 20:14 05/25/23 22:11 Sennosides 8.6 Mg Tab PO 8.6 mg DAILY PRN Administration Constipation Tramadol HCl 50 mg 05/25/23 20:38 Tramadol 50 Mg Tab PO BID PRN Pain Intake and Output 05/25/23 05/26/23 05/26/23 22:59 06:59 14:59 Intake Total 540 Output Total 250 Balance 540 -250 Intake: Oral 540 Output: Urine 250 Other: # Voids 1 1 Weight 68.039 kg 74.1 kg 05/26/23 06:59 05/26/23 06:59
[2023-05-26 11:10] VITALS: BMI 29.8
--- NOTE | 2023-05-26 13:02 | P.NPCON ---
History of Present Illness - Reason for Consult chronic renal failure - History of Present Illness Reason for consultation: Chronic kidney disease History of present illness: Patient is a 72-year-old female seen in renal consultation for chronic kidney disease. Patient has chronic kidney disease stage IIIb/IV with baseline creatinine in the range of 1.62. Patient has history of liver cirrhosis. Patie nt states she gets paracentesis weekly and last paracentesis was May 25, 2023 with about 5 L drained. Patient states she has not been maintained on any diuretics. Patient states she underwent TIPS recently. She denies history of diabetes. Denies history of coronary artery disease. Denies family history of renal disease. Denies use of nonsteroidals. Patient does admit to swelling in her lower extremities as well as abdominal distention. Patient states she went for paracentesis yesterday but was short of breath and remained short of breath even after the procedure and was subsequently admitted. Patient has history of common variable immunodeficiency and is maintained on IVIG weekly. She follows at [facility]. Patient states she has an appointment [facility] next week. Oral intake is fair. She is currently on IV Lasix 40 mg twice daily. Denies hematuria or dysuria. Vital signs are stable. General: No acute distress. HEENT: Head exam is unremarkable. LUNGS: No audible rhonchi or wheezes. HEART: Rate and Rhythm are regular. ABDOMEN: Distention noted. EXTREMITITES: 2+ edema. Past Medical History Past Medical History: Liver Disease Additional Past Medical History / Comment(s): Common variable immunodeficiency, 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 Severe recalcitrant dermatitis, Allergic rhinitis. diffuse lymphadenopathy, liver failure, kidney failure, hepatorenal syndrome, weekly paracentesis History of Any Multi-Drug Resistant Organisms: MRSA Date of last positivie culture/infection: 08/23/2009 MDRO Source:: open wound Past Surgical History: Hysterectomy Additional Past Surgical History / Comment(s): common variable immune deficicency TIPS Jan 2023 and apr 2023 Past Anesthesia/Blood Transfusion Reactions: No Reported Reaction Additional Past Anesthesia/Blood Transfusion Reaction / Comment(s): Slow to wake up. Past Psychological History: Anxiety, Depression Smoking Status: Never smoker Past Alcohol Use History: None Reported Additional Past Alcohol Use History / Comment(s): . Past Drug Use History: None Reported - Past Family History Father Additional Family Medical History / Comment(s): Patient's father at age 92 from CVA. He also had a degenerative muscle disorder. Mother Additional Family Medical History / Comment(s): Mother is alive at age 90 with no major medical problems. Brother(s) Additional Family Medical History / Comment(s): Patient is a total of 4 siblings with no major medical problems. Patient has one daughter with no major medical problems. Medications and Allergies Home Medications Medication Instructions Recorded Confirmed Type ALPRAZolam [Xanax] 1 mg PO HS 08/29/19 05/25/23 History traMADol HCL 50 mg PO BID PRN 08/29/19 05/25/23 History Ergocalciferol (Vitamin D2) 1,250 mcg PO WE 08/29/21 05/25/23 History [Drisdol (50,000 Iu)] Allergies Allergy/AdvReac Type Severity Reaction Status Date / Time sulfamethoxazole AdvReac Nausea Verified 05/25/23 15:08 [From Bactrim] trimethoprim [From Bactrim] AdvReac Nausea Verified 05/25/23 15:08 Physical Exam Vitals: Vital Signs Temp Pulse Pulse Resp BP BP BP 05/26/23 11:54 97.6 F 87 18 136/68 05/26/23 07:39 98.9 F 86 18 147/62 05/26/23 04:00 98 F 85 16 129/65 05/25/23 23:34 98.1 F 90 16 117/56 05/25/23 20:00 97.9 F 82 16 144/67 05/25/23 19:09 97.9 F 76 18 142/78 05/25/23 17:27 81 18 148/69 05/25/23 16:00 98.1 F 78 18 142/72 05/25/23 14:06 84 18 136/72 05/25/23 13:37 80 18 147/75 Pulse Ox 05/26/23 11:54 98 05/26/23 07:39 94 L 05/26/23 04:00 95 05/25/23 23:34 93 L 05/25/23 20:00 100 05/25/23 19:09 97 05/25/23 17:27 05/25/23 16:00 97 05/25/23 14:06 05/25/23 13:37 98 Intake and Output 05/25/23 05/26/23 05/26/23 22:59 06:59 14:59 Intake Total 540 Output Total 250 Balance 540 -250 Intake: Oral 540 Output: Urine 250 Other: # Voids 1 1 Weight 68.039 kg 74.1 kg 74.1 kg Results - Lab Results Most recent lab results Calcium 8.0 mg/dL (8.4-10.2) L 05/26/23 06:59 Magnesium 1.8 mg/dL (1.6-2.3) 05/25/23 12:56 05/26/23 06:59 05/26/23 06:59 Assessment and Plan Plan: Assessment: 1. Chronic kidney disease stage IIIb/IV with baseline creatinine 1.62 secondary to hepatorenal syndrome. 2. Volume overload. 3. Liver cirrhosis with ascites. Last paracentesis May 25, 2023. 4. 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 Follows at [facility]. Plan: Maintain IV Lasix. Add spironolactone 25 mg twice daily. Low-salt diet. 1200 cc fluid restriction. Check urinalysis. Check renal ultrasound. Continue to monitor renal function and urine output. Follow-up echocardiogram. Thank you for the consultation. I will continue to follow the patient with you during her hospital stay.
[2023-05-26] MEDS: SPIRONOLACTONE 25 MG TAB PO SCH (13:57)
--- NOTE | 2023-05-26 15:23 | US ---
EXAMINATION TYPE: US kidneys/renal and bladder DATE OF EXAM: 05/26/2023 COMPARISON: 05/25/2023. CLINICAL INDICATION: Female, 72 years old with history of geno; GENO EXAM MEASUREMENTS: Right Kidney: 8.3 x 4.0 x 4.5 cm Left Kidney: 8.9 x 4.0 x 3.9 cm Right Kidney: Small in size No hydronephrosis or masses seen Left Kidney: Small in size No hydronephrosis or masses seen Bladder: not distended known spleen enlargement, 22.6cm Abdominal ascites is present. There is no evidence for hydronephrosis at this point in time. No nephrolithiasis is seen. No rikki s are identified. IMPRESSION: 1. No evidence for obstructive uropathy. 2. Medical renal disease with atrophy changes of the kidneys. 3. Small ascites.
[2023-05-26] MEDS ORDERED: hydrOXYzine HCL 10 MG TAB PO SCH (16:00)
[2023-05-26 16:46] LABS: Appearance,Urine Cloudy (Clear); Bacteria,Urine Many /hpf; Bilirubin,Urine Negative (Negative); Blood,Urine Negative (Negative); Color,Urine Colorless; Glucose,Urine (UA) Negative (Negative); Hyaline Casts,Urine 1 /lpf (0-2); Ketones,Urine Negative (Negative); Leukocyte Esterase,Urine Trace (Negative); Mucus,Urine Rare /hpf; Nitrite,Urine Negative (Negative); Protein,Urine Negative (Negative); RBC,Urine 3 /hpf (0-5); Specific Gravity,Urine 1.006 (1.001-1.035); Squamous Epithelial Cell,Urine 2 /hpf (0-4); Urobilinogen,Urine <2.0 mg/dL (<2.0); WBC,Urine 3 /hpf (0-5)
[2023-05-26] MEDS: FUROSEMIDE 10 MG/ML 2 ML VIAL IV SCH (20:23)
--- NOTE | 2023-05-26 22:28 | P.PN ---
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 Patient was sent to ER due to worsening shortness of breath and weakness postprocedure. Otherwise patient denies any complaints of fever or chills. Denies any complaints of chest pain. No abdominal pain. No diarrhea. No nausea or vomiting. Patient states that she has been having worsening leg swelling and generalized swelling. Chest x-ray showed cardiomegaly and new mild pulmonary vascular congestion. Correlate with BNP for congestive heart failure. EKG showed sinus rhythm with sinus arrhythmia Laboratory data showed WBC 2.3 hemoglobin 8.7 and platelets 42 Sodium 140 potassium 3.8 chloride 112 bicarb is 19 BUN 30 and creatinine 1.61 magnesium 1.8 AST 62 ALT 48 and alcohol 211 Troponin 0.013 and proBNP 1350 and albumin 3.0 05/26/2023 Patient is seen and evaluated in follow-up with cardiology following continues on IV Lasix showing some increased creatinine and history of patient with CKD stage IIIb will consult nephrology and appreciate input and recommendations. Patient continues with significant swelling in the lower extremities that is 1- 2+ pitting. Patient also noted to have some mild redness on bilateral shins right being worse with no drainage and skin is intact. Concern for cellulitis although suspicion is low and will monitor closely Review of systems: Constitutional: No reports of fatigue, fever, or chills Cardiovascular: No reports of chest pain or palpitations Respiratory: No reports of shortness of breath or cough GI: No reports of nausea, vomiting, or diarrhea : No reports of dysuria or retention Neurovascular: No reports of weakness, reports continued lower extremity swelling and feels it is slightly improved All medications have been reviewed PHYSICAL EXAMINATION: Patient is sitting up in the bed comfortably, no acute distress, awake alert and oriented.. Well-developed, well-nourished HEENT: Normocephalic. Neck is supple. Pupils reactive. Nostrils clear. Oral cavity is moist. Neck reveals no JVD, carotid bruits, or thyromegaly. CHEST EXAMINATION: Trachea is central. Symmetrical expansion. Bibasilar diminished sounds. No wheezing or rhonchi.. CARDIAC: S1, S2 are muffled ABDOMEN: Soft. Abdominal distention with ascites, nontender. Bowel sounds present. No organomegaly. No abdominal bruits. Extremities: Bilateral 2+ pedal edema. No clubbing or cyanosis Neurologically awake, alert, oriented x3 with well-coordinated movements. No focal deficits noted Skin: No rash or skin lesions. Bilateral lower extremity tristan redness and skin is intact with no drainage noted Psychiatric: Cooperative. Non-suicidal Musculoskeletal: No joint swelling or deformity. Normal range of motion. Assessment: Worsening shortness of breath secondary to fluid overload due to liver cirrhosis and possible acute on chronic HFpEF. Normal EF as per echocardiogram on 10/20/2022. Chronic kidney disease stage IIIb with baseline creatinine level 1.4-1.6 related to nephrosclerosis Ascites associated with liver cirrhosis. Etiology unknown. On follow-up with GI as an outpatient. Patient is undergoing paracentesis weekly. Status post paracentesis yesterday with 4 L removed Pancytopenia secondary to splenomegaly and liver cirrhosis Elevated liver enzymes Common variable immunodeficiency. On IVIG infusions History of mediastinal lymphadenopathy status post aspiration biopsy previously was negative for malignancy. DVT prophylaxis with heparin subcu Plan: Patient will be continued on IV Lasix 20 mg every 12 and follow-up renal function closely. Kidney functions are worsening and will consult and appreciate input and recommendations from nephrology continue telemetry. Cardiology following recommend to continue with IV Lasix. 2D echo ordered and pending patient will need outpatient follow-up with GI due to her liver cirrhosis. Patient is status post paracentesis with approximately 4 L removed and was given albumin. Patient reports she undergoes weekly paracentesis palliative Patient continues with bilateral lower extremity swelling and reports is slightly improved, continues to be pending. Patient encouraged to elevate lower extremities while at rest There is some bilateral lower extremity tristan redness with no signs of drainage and low concerns for starting of cellulitis. Patient denies any pain or warmth only when you press the site. Will monitor closely for any worsening signs. PT/OT therapy to evaluate the patient Due to multiple complex medical issues, prognosis is guarded The impression and plan of care has been dictated by Rowena Dorsey, Nurse Practitioner as directed. Dr. Michael MD I have performed a history and examination and MDM of this patient, discussed the same with the dictator, and agree with the dictator's assessment and plan as written ,documented as a scribe. Based on total visit time, I have performed more than 50% of the visit. Objective - Vital Signs Vital signs: Vital Signs Temp 98.9 F 05/26/23 07:39 Pulse 86 05/26/23 07:39 Resp 18 05/26/23 07:39 BP 147/62 05/26/23 07:39 Pulse Ox 94 L 05/26/23 07:39 FiO2 Intake & Output 05/25/23 05/26/23 05/26/23 18:59 06:59 18:59 Intake Total 540 Output Total 250 Balance 290 Weight 68.039 kg 74.1 kg Intake: Oral 540 Output: Urine 250 Other: # Voids 1 - Labs CBC & Chem 7: 05/26/23 06:59 05/26/23 06:59 Labs: Abnormal Lab Results - Last 24 Hours (Table) 05/25/23 05/25/23 05/25/23 Range/Units 12:56 12:56 16:44 WBC 2.3 L 2.1 L (3.8-10.6) k/uL RBC 3.05 L 2.96 L (3.80-5.40) m/uL Hgb 8.7 L 8.4 L (11.4-16.0) gm/dL Hct 25.3 L 24.5 L (34.0-46.0) % RDW 17.5 H 17.7 H (11.5-15.5) % Plt Count 42 L 33 L (150-450) k/uL Neutrophils # 1.2 L (1.3-7.7) k/uL Neutrophils # (Manual) 1.18 L (1.3-7.7) k/uL Lymphocytes # 0.5 L (1.0-4.8) k/uL Lymphocytes # (Manual) 0.48 L (1.0-4.8) k/uL Chloride 112 H (98-107) mmol/L Carbon Dioxide 19 L (22-30) mmol/L BUN 30 H (7-17) mg/dL Creatinine 1.61 H (0.52-1.04) mg/dL Calcium 8.3 L (8.4-10.2) mg/dL AST 62 H (14-36) U/L ALT 48 H (4-34) U/L Alkaline Phosphatase 211 H (38-126) U/L Total Protein 4.7 L (6.3-8.2) g/dL Albumin 3.0 L (3.5-5.0) g/dL 05/25/23 05/26/23 05/26/23 Range/Units 20:16 06:59 06:59 WBC 2.5 L 2.3 L (3.8-10.6) k/uL RBC 3.20 L 3.00 L (3.80-5.40) m/uL Hgb 8.9 L 8.3 L (11.4-16.0) gm/dL Hct 27.0 L 25.2 L (34.0-46.0) % RDW 17.8 H 17.6 H (11.5-15.5) % Plt Count 46 L 45 L (150-450) k/uL Neutrophils # 1.2 L (1.3-7.7) k/uL Neutrophils # (Manual) (1.3-7.7) k/uL Lymphocytes # 0.5 L 0.6 L (1.0-4.8) k/uL Lymphocytes # (Manual) (1.0-4.8) k/uL Chloride 110 H (98-107) mmol/L Carbon Dioxide (22-30) mmol/L BUN 34 H (7-17) mg/dL Creatinine 1.90 H (0.52-1.04) mg/dL Calcium 8.0 L (8.4-10.2) mg/dL AST 63 H (14-36) U/L ALT 44 H (4-34) U/L Alkaline Phosphatase 202 H (38-126) U/L Total Protein 4.2 L (6.3-8.2) g/dL Albumin 2.5 L (3.5-5.0) g/dL
[2023-05-27] MEDS: ERGOCALCIFEROL 1,250 MCG (50,000 IU) CAPSULE PO SCH (08:02)
[2023-05-27 08:12] VITALS: RESP 18
--- NOTE | 2023-05-27 08:56 | CA ---
Transthoracic Echo Report Name: Molly Cedeno Age: 72 Gender: F : 1950 Exam Date: 05/26/2023 10:35 Exam Location: [facility] Ht (in): 62 Wt (lb): 163 Ordering Physician: Brittany Santos Attending/Referring Phys: [id number], [employer] Physician Geoff Martins RDCS Procedure CPT: Indications: LV function, CHF Cardiac Hx: Technical Quality: Contrast 1: Total Dose (mL): Contrast 2: Total Dose (mL): MEASUREMENTS (Male / Female) Normal Values 2D ECHO LV Diastolic Diameter PLAX 5.1 cm 4.2 - 5.9 / 3.9 - 5.3 cm LV Systolic Diameter PLAX 2.9 cm IVS Diastolic Thickness 1.0 cm 0.6 - 1.0 / 0.6 - 0.9 cm LVPW Diastolic Thickness 0.7 cm 0.6 - 1.0 / 0.6 - 0.9 cm LV Relative Wall Thickness 0.3 LVOT Diameter 2.2 cm Aortic Root Diameter 3.7 cm LA Systolic Diameter LX 4.4 cm 3.0 - 4.0 / 2.7 - 3.8 cm LA Volume 107.7 cm??? 18 - 58 / 22 - 52 cm??? LA Volume Index 59.0 cm???/m??? 16 - 28 cm???/m??? DOPPLER AV Peak Velocity 190.0 cm/s AV Peak Gradient 14.4 mmHg AV Mean Velocity 147.7 cm/s AV Mean Gradient 9.5 mmHg AV Velocity Time Integral 49.1 cm LVOT Peak Velocity 172.9 cm/s LVOT Peak Gradient 12.0 mmHg LVOT Velocity Time Integral 42.8 cm LVOT Stroke Volume 155.9 cm??? LVOT Stroke Volume Index 89.0 ml/m??? LVOT Cardiac Index 6921.9 cm???/min???m??? AV Area Cont Eq vti 3.2 cm??? AV Area Cont Eq pk 3.3 cm??? MV Area PHT 3.7 cm??? Mitral E Point Velocity 146.2 cm/s Mitral A Point Velocity 159.1 cm/s Mitral E to A Ratio 0.9 MV Deceleration Time 202.4 ms TR Peak Velocity 249.9 cm/s TR Peak Gradient 25.0 mmHg Right Ventricular Systolic Press 30.0 mmHg PV Peak Velocity 91.0 cm/s PV Peak Gradient 3.3 mmHg FINDINGS Left Ventricle Left ventricular ejection fraction is estimated at 60-65 %. Right Ventricle Normal right ventricular size. Right ventricular systolic pressure estimated at 29.98 mmhg. Right Atrium Normal right atrial size. Left Atrium Moderately increased left atrial diameter. Severely increased left atrial volume. Mildly increased left atrial area. Mitral Valve Trace to mild mitral regurgitation. Aortic Valve Aortic valve not well visualized. Tricuspid Valve Mild tricuspid regurgitation. Pulmonic Valve No pulmonic regurgitation. Pericardium No pericardial effusion. Aorta Normal size aortic root. CONCLUSIONS Previous echo recorded on 10/20/2022. Normal LV systolic function Previewed by: Dr. Abner Mccormick MD (Electronically Signed) Final Date: 27 May 2023 08:56
[2023-05-27 09:01] LABS: African American GFR (CKD) 26 (>60 ml/min/1.73 sqM); Anion Gap 7 mmol/L; Blood Urea Nitrogen 40 mg/dL (7-17); Carbon Dioxide 23 mmol/L (22-30); Chloride 107 mmol/L (98-107); Glucose 162 mg/dL (74-99); Magnesium 1.6 mg/dL (1.6-2.3); Non-African American GFR(CKD) 22 (>60 ml/min/1.73 sqM); Potassium 3.4 mmol/L (3.5-5.1); Sodium 137 mmol/L (137-145)
[2023-05-27] MEDS ORDERED: Magnesium Replacement Protocol 1 EACH MISC MISCELLANE PRN (09:37)
[2023-05-27] MEDS ORDERED: Potassium Replacement Protocol 1 EACH MISC MISCELLANE PRN (09:37)
[2023-05-27] MEDS: POTASSIUM CHLORIDE ER 20 MEQ TAB.ER PO SCH (10:25)
[2023-05-27] MEDS: MAGNESIUM SULFATE-D5W PMX 1 GM in DEXTROSE/WATER 1 100ML.BAG IVPB SCH (10:26)
--- NOTE | 2023-05-27 11:55 | P.PN ---
Subjective Patient is seen in follow-up for chronic kidney disease. Patient has chronic kidney disease stage IIIb/IV with baseline creatinine in the range of 1.6-2. Renal function slightly worse from diuresis. Good urine output. Oral intake fair. Vital signs are stable. General: No acute distress. HEENT: Head exam is unremarkable. LUNGS: No audible rhonchi or wheezes. HEART: Rate and Rhythm are regular. ABDOMEN: Nontender. EXTREMITITES: 2+ edema. Objective - Vital Signs Vital signs: Vital Signs Temp 98.1 F 05/27/23 08:00 Pulse 88 05/27/23 08:00 Resp 18 05/27/23 08:00 BP 112/56 05/27/23 08:00 Pulse Ox 95 05/27/23 08:00 FiO2 Intake & Output 05/26/23 05/27/23 05/27/23 18:59 06:59 18:59 Intake Total 180 180 Output Total 200 800 Balance -20 -800 180 Weight 74.1 kg 73.7 kg Intake: Oral 180 180 Output: Urine 200 800 Other: Voiding Method Toilet - Labs CBC & Chem 7: 05/26/23 06:59 05/27/23 07:36 Labs: Abnormal Lab Results - Last 24 Hours (Table) 05/26/23 05/27/23 Range/Units 16:00 07:36 Potassium 3.4 L (3.5-5.1) mmol/L BUN 40 H (7-17) mg/dL Creatinine 2.19 H (0.52-1.04) mg/dL Glucose 162 H (74-99) mg/dL Calcium 8.0 L (8.4-10.2) mg/dL Urine Appearance Cloudy H (Clear) Ur Leukocyte Esterase Trace H (Negative) Urine Bacteria Many H (None) /hpf Urine Mucus Rare H (None) /hpf Assessment and Plan Plan: Assessment: 1. Chronic kidney disease stage IIIb/IV with baseline creatinine 1.6-2 secondary to hepatorenal syndrome. Kidneys atrophic. No hydronephrosis noted. UA benign. 2. Volume overload. Improving with diuresis. 3. Liver cirrhosis with ascites. Last paracentesis May 25, 2023 -m4.7 L drained. 4. 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 Follows at [facility]. 5. Hypokalemia from diuresis. Replaced. 6. Hypomagnesemia from diuresis. Replaced. Plan: Change Lasix to 40 mg orally once daily. Increase spironolactone to 50 mg twice daily. Low-salt diet. 1200 cc fluid restriction. Preserved ejection fraction noted on echocardiogram. Continue to monitor renal function and urine output. Repeat labs in the morning.
[2023-05-27 13:25] VITALS: BP 115/61; PULSE 82; TEMP 98
--- NOTE | 2023-05-27 13:34 | P.PN ---
Subjective Progress Note Date: 05/27/23 HISTORY OF PRESENT ILLNESS: This is a 72-year-old female with a past medical history significant for chronic kidney disease, liver cirrhosis, common variable immunodeficiency on IVIG, and recurrent ascites requiring weekly paracentesis. Patient does not follow with a engineering document control clerk. Patient states that she follows at the [facility] for her chronic conditions. We have been asked to see the patient in consultation for congestive heart failure. Patient examined at the bedside. Patient was sent to the emergency room secondary to shortness of breath after having a paracentesis performed. Patient currently denies chest pain or pressure. She does report significantly worsened lower extremity edema. She also reports that she has been retaining fluid at home. The patient was started on IV Lasix. DIAGNOSTICS: - EKG reveals sinus mechanism with no signs of acute ischemia. - Chest xray cardiomegaly and new mild pulmonary vascular congestion - Laboratory data: WBC 2.3. Hemoglobin 8.3. Platelet count 45. Sodium 139. Potassium 3.6. BUN 34. Creatinine 1.9. AST 63. ALT 44. proBNP 1350. - Current home cardiac medications include none. -Echocardiogram in October 2022 revealed ejection fraction 60 to 65%, mild MR, trace to mild AR, mild to moderate TR 05/26 Patient is seen today on the cardiac stepdown unit. She states that her breathing seems to be improving and she feels better in general. She is hoping to go home today. She is been maintained on IV Lasix 20 mg every 12 hours. Blood pressure 112/56, heart rate 88, pulse ox 95% on room air. Patient has a negative fluid balance this morning of 820 mL. Weight is down half a kilogram. Repeat blood work reveals worsening renal function with BUN 40, creatinine 2.19. Potassium 3.4. Patient has been followed by nephrology and Aldactone was started yesterday. Ultrasound showed no obstructive uropathy but medical renal disease with atrophy of the kidneys, small ascites. Echocardiogram reveals EF of 60 to 65%. PHYSICAL EXAM: VITAL SIGNS: Reviewed. GENERAL: Well-developed in no acute distress. HEENT: Head is normocephalic. Pupils are equal, round. Sclerae anicteric. Mucous membranes of the mouth are moist. Neck supple. No JVD or thyromegaly LUNGS: Respirations even and unlabored. Lungs with crackles bilaterally HEART: Regular rate and rhythm. S1 and S2 heard. Systolic murmur noted ABDOMEN: Soft. Nondistended. Nontender. EXTREMITIES: No clubbing or cyanosis. Peripheral pulses intact. 2+ bilateral lower extremity edema, left greater than right. NEUROLOGIC: Awake and alert. Oriented x 3. 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 Nurse practitioner note has been reviewed by physician. Signing provider agrees with the documented findings, assessment, and plan of care documented by [employer] as a scribe. Objective - Vital Signs Vital signs: Vital Signs Temp 98.1 F 05/27/23 08:00 Pulse 88 05/27/23 08:00 Resp 18 05/27/23 08:00 BP 112/56 05/27/23 08:00 Pulse Ox 95 05/27/23 08:00 FiO2 Intake & Output 05/26/23 05/27/23 05/27/23 18:59 06:59 18:59 Intake Total 180 180 Output Total 200 800 Balance -20 -800 180 Weight 74.1 kg 73.7 kg Intake: Oral 180 180 Output: Urine 200 800 Other: Voiding Method Toilet - Labs CBC & Chem 7: 05/26/23 06:59 05/27/23 07:36 Labs: Abnormal Lab Results - Last 24 Hours (Table) 05/26/23 Range/Units 16:00 Urine Appearance Cloudy H (Clear) Ur Leukocyte Esterase Trace H (Negative) Urine Bacteria Many H (None) /hpf Urine Mucus Rare H (None) /hpf
[2023-05-27] MEDS ORDERED: SPIRONOLACTONE 25 MG TAB PO SCH (21:00)
[2023-05-28] MEDS ORDERED: FUROSEMIDE 40 MG TAB PO SCH (09:00)
== END 2023-05-27 14:25 | disposition home or self-care (01) | DRG 291 ==
LOC: EC 12:00 → 3SCARD 14:06 → OBSVTOIN 14:07 → 1SOBS 17:57 → 3SCARD 05-26 15:14
PROVIDERS: ADMIT Hospitalist; ATTEND Hospitalist
DX: I13.0 Hypertensive heart and chronic kidney disease with heart failure and stage 1 through stage 4 chronic kidney disease, or unspecified chronic kidney disease (principal); I50.33 Acute on chronic diastolic (congestive) heart failure; K76.7 Hepatorenal syndrome; D61.818 Other pancytopenia; D83.9 Common variable immunodeficiency, unspecified; E87.1 Hypo-osmolality and hyponatremia; R18.8 Other ascites; N18.32 Chronic kidney disease, stage 3b; E11.22 Type 2 diabetes mellitus with diabetic chronic kidney disease; E83.42 Hypomagnesemia; E87.6 Hypokalemia; T50.905A Adverse effect of unspecified drugs, medicaments and biological substances, initial encounter; X58.XXXA Exposure to other specified factors, initial encounter; F32.A Depression, unspecified; F41.9 Anxiety disorder, unspecified; I08.3 Combined rheumatic disorders of mitral, aortic and tricuspid valves; K74.60 Unspecified cirrhosis of liver; Z79.899 Other long term (current) drug therapy; Z90.710 Acquired absence of both cervix and uterus; Z86.19 Personal history of other infectious and parasitic diseases
CPT/HCPCS: 36415; 71046; 76770; 80048; 80053; 81001; 83605; 83735; 83880; 84484; 85025; 85610; 85730; 93306; 96374; 96376; 99285

== ENCOUNTER 2023-06-01 08:00 | Day surgery (SDC) | payer MEDICARE ==
[2023-06-01 08:42] LABS: Mean Platelet Volume 8.3
[2023-06-01 08:51] VITALS: RESP 18; TEMP 98.5
[2023-06-01 08:51] LABS: Platelet Count 41 k/uL (150-450)
[2023-06-01 08:52] LABS: African American GFR (CKD) 27 (>60 ml/min/1.73 sqM); Non-African American GFR(CKD) 23 (>60 ml/min/1.73 sqM)
[2023-06-01 08:54] LABS: Prothrombin Time 11.3 sec (10.0-12.5)
[2023-06-01] MEDS: ALBUMIN HUMAN 25% 50 ML in EMPTY BAG 1 BAG IVPB SCH (10:11)
[2023-06-01 11:09] VITALS: BP 133/71; PULSE 81
--- NOTE | 2023-06-01 12:01 | US ---
Ultrasound-guided paracentesis. DATE OF EXAM: 06/01/2023 CLINICAL HISTORY: Ascites The procedure was discussed with the patient. The risks, complications, benefits, and alternatives we re discussed and any questions were answered. Informed consent was obtained. The patient was placed s upine on the ultrasound table and prepped and draped in the usual sterile fashion. All elements of maximal barrier technique were utilized. Under ultrasound guidance, access into the right lower quadrant was obtained, via the paracentesis catheter system and direct ultrasound guidanc e. Approximately 3.3 liters of straw-colored fluid was removed. The patient was stable throughout the pr ocedure and remained stable upon discharge from Department of Radiology. IMPRESSION: Successful paracentesis under ultrasound guidance.
== END 2023-06-01 10:55 | disposition home or self-care (01) ==
LOC: RADPROMAIN 08:00
PROVIDERS: ATTEND Internal Medicine Hematology & Oncology
DX: R18.8 Other ascites (principal)
CPT/HCPCS: 82565; 85049; 85610; 36430; 36415; 49083; P9073; P9047

== ENCOUNTER 2023-06-08 08:00 | Day surgery (SDC) | payer MEDICARE ==
[2023-06-08 09:01] LABS: Mean Platelet Volume 8.6
[2023-06-08 09:05] VITALS: TEMP 98.1
[2023-06-08 09:07] LABS: African American GFR (CKD) 27 (>60 ml/min/1.73 sqM); Non-African American GFR(CKD) 24 (>60 ml/min/1.73 sqM)
[2023-06-08 09:09] LABS: INR 1.1 (<1.2)
[2023-06-08 09:16] LABS: Platelet Count 39 k/uL (150-450)
[2023-06-08] MEDS: ALBUMIN HUMAN 25% 50 ML in EMPTY BAG 1 BAG IVPB SCH (10:25)
[2023-06-08 10:56] VITALS: BP 135/65; PULSE 82
[2023-06-08 10:57] VITALS: RESP 24
--- NOTE | 2023-06-08 11:23 | US ---
Ultrasound-guided paracentesis. DATE OF EXAM: 06/08/2023 CLINICAL HISTORY: Ascites The procedure was discussed with the patient. The risks, complications, benefits, and alternatives we re discussed and any questions were answered. Informed consent was obtained. The patient was placed s upine on the ultrasound table and prepped and draped in the usual sterile fashion. All elements of maximal barrier technique were utilized. Under ultrasound guidance, access into the right lower quadrant was obtained, via the paracentesis catheter system and direct ultrasound guidanc e. Approximately 2.6 liters of straw-colored fluid was removed. The patient was stable throughout the pr ocedure and remained stable upon discharge from Department of Radiology. IMPRESSION: Successful paracentesis under ultrasound guidance.
== END 2023-06-08 11:00 | disposition home or self-care (01) ==
LOC: RADPROMAIN 08:00
PROVIDERS: ATTEND Internal Medicine Hematology & Oncology
DX: R18.8 Other ascites (principal)
CPT/HCPCS: 82565; 85049; 85610; 36415; 49083; P9073; P9047

== ENCOUNTER 2023-06-22 07:53 | Day surgery (SDC) | payer MEDICARE ==
[2023-06-22 08:51] LABS: Mean Platelet Volume 7.3
[2023-06-22 09:01] LABS: INR 1.1 (<1.2); Prothrombin Time 11.6 sec (10.0-12.5)
[2023-06-22 09:07] LABS: African American GFR (CKD) 22 (>60 ml/min/1.73 sqM); Non-African American GFR(CKD) 19 (>60 ml/min/1.73 sqM)
[2023-06-22 09:25] VITALS: RESP 16
[2023-06-22 09:42] LABS: Platelet Count 36 k/uL (150-450)
[2023-06-22] MEDS: ALBUMIN HUMAN 25% 50 ML in EMPTY BAG 1 BAG IVPB SCH (10:38)
[2023-06-22 10:54] VITALS: BP 137/63; PULSE 85; TEMP 97.9
--- NOTE | 2023-06-22 11:00 | US ---
Ultrasound-guided paracentesis. DATE OF EXAM: 06/22/2023 CLINICAL HISTORY: Ascites Preliminary ultrasound demonstrated only a small amount of fluid and the patient wished to defer the procedure.. IMPRESSION: Discontinue paracentesis due to insufficient fluid.
== END 2023-06-22 10:45 | disposition home or self-care (01) ==
LOC: RADPROMAIN 07:53
PROVIDERS: ATTEND Internal Medicine Hematology & Oncology
DX: Z53.8 Procedure and treatment not carried out for other reasons (principal); R18.8 Other ascites
CPT/HCPCS: 82565; 85049; 85610; 36430; 36415; 76705; P9073

== ENCOUNTER → 2023-07-16 | Outpatient (CLI) | payer MEDICARE ==
[2023-07-16 14:45] LABS: BUN/Creat Ratio 16.09 Ratio (12.00-20.00); Blood Urea Nitrogen 35.4 mg/dL (9.0-27.0); Calcium 8.5 mg/dL (8.7-10.3); Carbon Dioxide 26.2 mmol/L (21.6-31.8); Chloride 106 mmol/L (96-109); Glucose 195 mg/dL (70-110); Potassium 3.8 mmol/L (3.5-5.5); Sodium 142 mmol/L (135-145)
== END | disposition home or self-care (01) ==
LOC: LABWHC1 10:55
PROVIDERS: ATTEND Student in an Organized Health Care Education/Training Program
DX: N18.4 Chronic kidney disease, stage 4 (severe) (principal)
CPT/HCPCS: 36415; 80048

== ENCOUNTER → 2023-08-05 | Outpatient (CLI) | payer MEDICARE ==
[2023-08-05 15:12] LABS: BUN/Creat Ratio 15.74 Ratio (12.00-20.00); Blood Urea Nitrogen 36.2 mg/dL (9.0-27.0); Calcium 8.8 mg/dL (8.7-10.3); Carbon Dioxide 27.7 mmol/L (21.6-31.8); Chloride 104 mmol/L (96-109); Glucose 192 mg/dL (70-110); Potassium 3.7 mmol/L (3.5-5.5); Sodium 142 mmol/L (135-145)
== END | disposition home or self-care (01) ==
LOC: LABWHC1 10:33
PROVIDERS: ATTEND Student in an Organized Health Care Education/Training Program
DX: N18.4 Chronic kidney disease, stage 4 (severe) (principal)
CPT/HCPCS: 36415; 80048

== ENCOUNTER 2023-08-12 13:59 | Inpatient (IN) | payer MEDICARE ==
--- NOTE | 2023-08-12 16:05 | ED ---
SOB HPI - General Chief Complaint: Shortness of Breath Stated Complaint: SOB Time Seen by Provider: 08/12/23 15:38 Source: patient, RN notes reviewed, old records reviewed Mode of arrival: ambulatory Limitations: no limitations - History of Present Illness Initial Comments: 72-year-old female to the ER for evaluation of severe edema bilateral lower extr emity edema shortness of breath abdominal pain ascites pain. Patient has history of chronic fluid retention, has not had a paracentesis in over a month. MD Complaint: shortness of breath, anxiety -: week(s) Severity: severe Severity scale (1-10): 10 Consistency: constant Improves With: nothing Known History Of: congestive heart failure Associated Symptoms: denies other symptoms - Related Data Home Medications Medication Instructions Recorded Confirmed ALPRAZolam [Xanax] 1 mg PO HS 08/29/19 08/12/23 traMADol HCL 50 mg PO BID PRN 08/29/19 08/12/23 Ergocalciferol (Vitamin D2) 1,250 mcg PO WE 08/29/21 08/12/23 [Drisdol (50,000 Iu)] Citalopram Hydrobromide [CeleXA] 10 mg PO DIRECTED 08/12/23 08/12/23 Immun Glob G(IgG)/Pro/Iga 0-50 1 dose IV TH 08/12/23 08/12/23 [Hizentra 10 Gram/50 ml Syringe] Previous Rx's Medication Instructions Recorded Cephalexin [Keflex] 500 mg PO Q12HR 7 Days #14 cap 08/22/23 Ethacrynic Acid 50 mg PO DAILY 30 Days #60 tablet 08/22/23 Lactulose [Cephulac] 10 gm PO TID 30 Days #4500 ml 08/22/23 Magnesium Oxide [Mag-Ox] 400 mg PO DAILY 30 Days #30 tab 08/22/23 Pantoprazole [Protonix] 40 mg PO AC-BRKFST 30 Days #30 tab 08/22/23 Potassium Chloride ER [K-Dur 20] 20 meq PO DAILY 30 Days #30 tab 08/22/23 Allergies Allergy/AdvReac Type Severity Reaction Status Date / Time sulfamethoxazole Allergy Unknown, Verified 08/12/23 18:40 [From Bactrim] family allergy trimethoprim [From Bactrim] Allergy Unknown, Verified 08/12/23 18:40 family allergy spironolactone AdvReac Unknown Rash/Hives Verified 08/13/23 10:34 [From Aldactone] furosemide [From Lasix] AdvReac Rash/Hives Verified 08/16/23 07:16 Review of Systems ROS Statement: Those systems with pertinent positive or pertinent negative responses have been documented in the HPI. ROS Other: All systems not noted in ROS Statement are negative. Past Medical History Past Medical History: GERD/Reflux, Hypertension, Liver Disease, Renal Disease Additional Past Medical History / Comment(s): immunodeficiency History of Any Multi-Drug Resistant Organisms: MRSA Date of last positivie culture/infection: 08/23/2009 MDRO Source:: open wound Past Surgical History: Hysterectomy Additional Past Surgical History / Comment(s): common variable immune deficicency, multiple paracentesis, colonoscopy with polyp removal, TIPS Jan 2023 Past Anesthesia/Blood Transfusion Reactions: No Reported Reaction Additional Past Anesthesia/Blood Transfusion Reaction / Comment(s): Slow to wake up. Past Psychological History: Anxiety, Depression Smoking Status: Never smoker Past Alcohol Use History: None Reported Past Drug Use History: None Reported - Past Family History Father Additional Family Medical History / Comment(s): Patient's father at age 92 from CVA. He also had a degenerative muscle disorder. Mother Additional Family Medical History / Comment(s): Mother is alive at age 90 with no major medical problems. Brother(s) Additional Family Medical History / Comment(s): Patient is a total of 4 siblings with no major medical problems. Patient has one daughter with no major medical problems. General Exam Limitations: no limitations General appearance: alert, in no apparent distress Head exam: Present: atraumatic, normocephalic, normal inspection Eye exam: Present: normal appearance, PERRL, EOMI. Absent: scleral icterus, conjunctival injection, periorbital swelling ENT exam: Present: normal exam, mucous membranes moist Neck exam: Present: normal inspection. Absent: tenderness, meningismus, lymphadenopathy Respiratory exam: Present: normal lung sounds bilaterally. Absent: respiratory distress, wheezes, rales, rhonchi, stridor Cardiovascular Exam: Present: regular rate, normal rhythm, normal heart sounds. Absent: systolic murmur, diastolic murmur, rubs, gallop, clicks GI/Abdominal exam: Present: soft, normal bowel sounds. Absent: distended, tenderness, guarding, rebound, rigid Extremities exam: Present: normal inspection, full ROM, normal capillary refill. Absent: tenderness, pedal edema, joint swelling, calf tenderness Back exam: Present: normal inspection Neurological exam: Present: alert, oriented X3, CN II-XII intact Psychiatric exam: Present: normal affect, normal mood Skin exam: Present: warm, dry, intact, normal color. Absent: rash Course Vital Signs 08/12/23 08/12/23 08/12/23 14:06 19:03 21:27 Temperature 97.8 F Pulse Rate 84 87 78 Respiratory 18 18 16 Rate Blood Pressure 165/68 154/67 147/72 O2 Sat by Pulse 97 96 96 Oximetry - Reevaluation(s) Reevaluation #1: 08/12/23 18:35 Medical records reviewed Reevaluation #2: 08/12/23 18:35 Patient symptoms unchanged Reevaluation #3: 08/12/23 18:35 Patient informed of results questions answered Reevaluation #4: Was pt. sent in by a medical professional or institution (, PA, HEALTHCARE REPRESENTATIVE, urgent care, hospital, or half-way...) When possible be specific @ -no Did you speak to anyone other than the patient for history (EMS, parent, family, police, friend...)? What history was obtained from this source @ -no Did you review nursing and triage notes (agree or disagree)? Why? @ -agree Are old charts reviewed (outside hosp., previous admission, EMS record, old EKG, old radiological studies, urgent care reports/EKG's, half-way records)? Report findings @ -yes Differential Diagnosis (chest pain, altered mental status, abdominal pain women, abdominal pain men, vaginal bleeding, weakness, fever, dyspnea, syncope, headache, dizziness, GI bleed, back pain, seizure, CVA, palpatations, mental health, musculoskeletal)? @ -prior EKG interpreted by me (3pts min.). @ -yes X-rays interpreted by me (1pt min.). @ -yes positive for pleural effusions and edema CT interpreted by me (1pt min.). @ -no U/S interpreted by me (1pt. min.). @ -no What testing was considered but not performed or refused? (CT, X-rays, U/S, labs)? Why? @ -none What meds were considered but not given or refused? Why? @ -none Did you discuss the management of the patient with other professionals (professionals i.e. , PA, HEALTHCARE REPRESENTATIVE, lab, RT, psych nurse, social service technician, intellectual property legal assistant, teacher, real estate officer, rifle case repairer)? Give summary @ -no Was smoking cessation discussed for >3mins.? @ -no Were there social determinants of health that impacted care today? How? (Homelessness, low income, unemployed, alcoholism, drug addiction, transportation, low edu. Level, literacy, decrease access to med. care, intermediate, rehab)? @ -none Was there de-escalation of care discussed even if they declined (Discuss DNR or withdrawal of care, Hospice)? DNR status @ -no What co-morbidities impacted this encounter? (DM, HTN, Smoking, COPD, CAD, Cancer, CVA, ARF, Chemo, Hep., AIDS, mental health diagnosis, sleep apnea, morbid obesity)? @ -none Was patient admitted / discharged? Hospital course, mention meds given and route, prescriptions, significant lab abnormalities, going to OR and other pertinent info. @ - 72 female will admit for ascites CHF bilateral lower extremity edema effusions Admitted Was critical care preformed (if so, how long)? @ -no Undiagnosed new problem with uncertain prognosis? @ -no Drug Therapy requiring intensive monitoring for toxicity (Heparin, Nitro, Insulin, Cardizem)? @ -no Were any procedures done? @ -no Diagnosis/symptom? @ -Dyspnea pleural effusions lower extremity edema renal failure Acute, or Chronic, or Acute on Chronic? @ -Acute Uncomplicated (without systemic symptoms) or Complicated (systemic symptoms)? @ -Complicated Side effects of treatment? @ -no Exacerbation, Progression, or Severe Exacerbation? @ -exacerbation Poses a threat to life or bodily function? How? (Chest pain, [place], PR, pneumonia, PE, COPD, DKA, ARF, appy, cholecystitis, CVA, Diverticulitis, Homicidal, Suicidal, threat to staff... and all critical care pts) @ -yes with extremes of age Reevaluation #5: Differential Dyspnea: Coronary syndrome, arrhythmia, tamponade, asthma, COPD, pulmonary embolism, pneumonia, pneumothorax, pulmonary effusion, anaphylaxis, diabetic ketoacidosis, flailed chest, pulmonary contusion, diaphragmatic rupture, anemia, neur omuscular, this is not meant to be an all-inclusive list. - Consultations Consultation #1: Spoke with [facility] will admit this patient Medical Decision Making - Medical Decision Making 72 female will admit for ascites CHF bilateral lower extremity edema effusions - Lab Data Result diagrams: 08/17/23 10:53 08/22/23 06:00 Lab Results 08/12/23 08/12/23 08/12/23 Range/Units 16:12 16:12 16:12 WBC 2.4 L (3.8-10.6) k/uL RBC 3.67 L (3.80-5.40) m/uL Hgb 10.1 L (11.4-16.0) gm/dL Hct 31.3 L (34.0-46.0) % MCV 85.3 (80.0-100.0) fL MCH 27.6 (25.0-35.0) pg MCHC 32.4 (31.0-37.0) g/dL RDW 16.4 H (11.5-15.5) % Plt Count 44 L (150-450) k/uL MPV 7.8 Neutrophils % 54 % Lymphocytes % 20 % Monocytes % 9 % Eosinophils % 12 % Basophils % 1 % Neutrophils # 1.3 (1.3-7.7) k/uL Lymphocytes # 0.5 L (1.0-4.8) k/uL Monocytes # 0.2 (0-1.0) k/uL Eosinophils # 0.3 (0-0.7) k/uL Basophils # 0.0 (0-0.2) k/uL Poikilocytosis Slight Anisocytosis Slight PT 11.1 (10.0-12.5) sec INR 1.0 (<1.2) APTT 26.5 (22.0-30.0) sec Sodium 139 (137-145) mmol/L Potassium 3.8 (3.5-5.1) mmol/L Chloride 109 H (98-107) mmol/L Carbon Dioxide 29 (22-30) mmol/L Anion Gap 1 mmol/L BUN 37 H (7-17) mg/dL Creatinine 2.10 H (0.52-1.04) mg/dL Est GFR (CKD-EPI)AfAm 27 (>60 ml/min/1.73 sqM) Est GFR (CKD-EPI)NonAf 23 (>60 ml/min/1.73 sqM) Glucose 130 H (74-99) mg/dL Calcium 8.7 (8.4-10.2) mg/dL Magnesium 2.0 (1.6-2.3) mg/dL Total Bilirubin 1.4 H (0.2-1.3) mg/dL AST 80 H (14-36) U/L ALT 63 H (4-34) U/L Alkaline Phosphatase 242 H (38-126) U/L Troponin I (0.000-0.034) ng/mL NT-Pro-B Natriuret Pep 2030 pg/mL Total Protein 5.0 L (6.3-8.2) g/dL Albumin 2.7 L (3.5-5.0) g/dL 08/12/23 Range/Units 16:12 WBC (3.8-10.6) k/uL RBC (3.80-5.40) m/uL Hgb (11.4-16.0) gm/dL Hct (34.0-46.0) % MCV (80.0-100.0) fL MCH (25.0-35.0) pg MCHC (31.0-37.0) g/dL RDW (11.5-15.5) % Plt Count (150-450) k/uL MPV Neutrophils % % Lymphocytes % % Monocytes % % Eosinophils % % Basophils % % Neutrophils # (1.3-7.7) k/uL Lymphocytes # (1.0-4.8) k/uL Monocytes # (0-1.0) k/uL Eosinophils # (0-0.7) k/uL Basophils # (0-0.2) k/uL Poikilocytosis Anisocytosis PT (10.0-12.5) sec INR (<1.2) APTT (22.0-30.0) sec Sodium (137-145) mmol/L Potassium (3.5-5.1) mmol/L Chloride (98-107) mmol/L Carbon Dioxide (22-30) mmol/L Anion Gap mmol/L BUN (7-17) mg/dL Creatinine (0.52-1.04) mg/dL Est GFR (CKD-EPI)AfAm (>60 ml/min/1.73 sqM) Est GFR (CKD-EPI)NonAf (>60 ml/min/1.73 sqM) Glucose (74-99) mg/dL Calcium (8.4-10.2) mg/dL Magnesium (1.6-2.3) mg/dL Total Bilirubin (0.2-1.3) mg/dL AST (14-36) U/L ALT (4-34) U/L Alkaline Phosphatase (38-126) U/L Troponin I 0.022 (0.000-0.034) ng/mL NT-Pro-B Natriuret Pep pg/mL Total Protein (6.3-8.2) g/dL Albumin (3.5-5.0) g/dL - EKG Data -: EKG Interpreted by Me (EKG is sinus 82 LA 189 QRS 86 QTc 423) Disposition Clinical Impression: Chronic kidney disease, Abdominal pain, Ascites, Acute pulmonary edema, Congestive heart failure, Dyspnea Disposition: ADMITTED IP TO THIS HOSP Condition: Good Is patient prescribed a controlled substance at d/c from ED?: No Time of Disposition: 18:30
[2023-08-12 16:35] LABS: Anisocytosis Slight; Basophils % (A) 1 %; Eosinophils # (A) 0.3 k/uL (0-0.7); Eosinophils % (A) 12 %; HCT 31.3 % (34.0-46.0); HGB 10.1 gm/dL (11.4-16.0); Lymphocytes # (A) 0.5 k/uL (1.0-4.8); Lymphocytes % (A) 20 %; MCH 27.6 pg (25.0-35.0); MCHC 32.4 g/dL (31.0-37.0); MCV 85.3 fL (80.0-100.0); Mean Platelet Volume 7.8; Monocytes # (A) 0.2 k/uL (0-1.0); Monocytes % (A) 9 %; Neutrophils # (A) 1.3 k/uL (1.3-7.7); Neutrophils % (A) 54 %; Poikilocytosis Slight; RBC 3.67 m/uL (3.80-5.40); RDW 16.4 % (11.5-15.5); WBC 2.4 k/uL (3.8-10.6)
[2023-08-12 16:44] LABS: Platelet Count 44 k/uL (150-450)
[2023-08-12 16:57] LABS: Partial Thromboplastin Time 26.5 sec (22.0-30.0); Prothrombin Time 11.1 sec (10.0-12.5)
[2023-08-12 17:05] LABS: ALT 63 U/L (4-34); AST 80 U/L (14-36); African American GFR (CKD) 27 (>60 ml/min/1.73 sqM); Albumin 2.7 g/dL (3.5-5.0); Alkaline Phosphatase 242 U/L (38-126); Anion Gap 1 mmol/L; Blood Urea Nitrogen 37 mg/dL (7-17); Calcium 8.7 mg/dL (8.4-10.2); Carbon Dioxide 29 mmol/L (22-30); Chloride 109 mmol/L (98-107); Glucose 130 mg/dL (74-99); Non-African American GFR(CKD) 23 (>60 ml/min/1.73 sqM); Potassium 3.8 mmol/L (3.5-5.1); Sodium 139 mmol/L (137-145); Total Bilirubin 1.4 mg/dL (0.2-1.3)
[2023-08-12 17:12] LABS: NT-Pro-B-Type Natriuretic Pept 2030 pg/mL
--- NOTE | 2023-08-12 17:51 | CT ---
EXAMINATION TYPE: CT abdomen pelvis wo con DATE OF EXAM: 08/12/2023 COMPARISON: 08/29/2021 INDICATION: abdominal pain, distention DLP: 686.1 mGycm, Automated exposure control for dose reduction was used. CONTRAST: 0 mL of Isovue 300. Study performed without Oral Contrast TECHNIQUE: Axial images were obtained from above the diaphragm to the pubic rami in the axial plane a t 5 mm thick sections. Reconstructed images are reviewed on the computer in the coronal plane. FINDINGS: Limited CT sections are obtained the lung bases. Small bilateral pleural effusions are present.. Th ere may be some prominence of the pulmonary vascular markings within the [id number]. Correlate for volume overload CT ABDOMEN: Large volume of ascites is present. Liver: Normal portal shunt appears be present Spleen: Splenomegaly is present. Pancreas: Normal Adrenal glands: The adrenal glands are normal. Gallbladder: Normal Kidneys: No masses are evident. No hydronephrosis is present. No cysts are present. No renal stone s are identified Aorta: Vascular calcification is within the aorta. Inferior vena cava: Normal. CT PELVIS: Subcutaneous edema is evident. Loops of bowel within the abdomen and pelvis are normal. This study is without oral contrast limi ting evaluation Appendix: Not clearly identified. No dilated tubular structure or inflammatory change is evident. Urinary bladder: Normal. Genitourinary structures: Uterus and ovaries are not identified. Osseous structures: No suspicious lytic or sclerotic lesions. Scoliosis in the lumbar spine. Degenera tive disc changes at the lumbar spine. IMPRESSION: 1. Ascites. This is less than comparison study 2. Minimal pleural effusions. 3. Volume overload and pulmonary edema may be present within the visualized lung bases. 4. Splenomegaly
[2023-08-12] MEDS ORDERED: NALOXONE 0.4 MG/ML 1 ML VIAL IV PRN (18:32)
[2023-08-12] MEDS ORDERED: MORPHINE SULFATE 4 MG/ML SYRINGE IV PRN (18:32)
[2023-08-12] MEDS ORDERED: LORazepam 2 MG/ML INJ IV PRN (18:37)
--- NOTE | 2023-08-12 18:41 | XR ---
EXAMINATION TYPE: XR chest 2V DATE OF EXAM: 08/12/2023 COMPARISON: 05/25/2023 INDICATION: Headache short of breath TECHNIQUE: Frontal and lateral views of the chest are obtained. FINDINGS: The heart size is mildly prominent. The pulmonary vasculature is prominent. Diffuse increased lung markings are present, greater at the lung bases. Correlate for pulmonary edema .. IMPRESSION: 1. Clinical correlation recommended for congestive heart failure. Follow-up is recommended.
[2023-08-12] MEDS: FUROSEMIDE 10 MG/ML 10 ML VIAL IV STA (19:02)
[2023-08-12] MEDS: ONDANSETRON 4 MG/2 ML VIAL IVP STA (19:02)
[2023-08-12] MEDS: LORazepam 2 MG/ML INJ IV STA (19:02)
[2023-08-12] MEDS: FUROSEMIDE 10 MG/ML 10 ML VIAL IV SCH (20:48)
[2023-08-13] MEDS: LORazepam 1 MG/0.5 ML VIAL IV PRN (00:56)
--- NOTE | 2023-08-13 08:50 | US ---
EXAMINATION TYPE: US abdomen limited DATE OF EXAM: 08/13/2023 COMPARISON: None CLINICAL INDICATION: Female, 72 years old with history of Assess for ascites; Fluid check. Hx Vitor. All four quadrants scanned to access for fluid. IMPRESSION: Small amount of ascites
[2023-08-13 08:59] LABS: Anisocytosis Slight; Basophils % (A) 1 %; Eosinophils # (A) 0.4 k/uL (0-0.7); Eosinophils % (A) 13 %; HCT 31.6 % (34.0-46.0); HGB 9.9 gm/dL (11.4-16.0); Lymphocytes # (A) 0.7 k/uL (1.0-4.8); Lymphocytes % (A) 23 %; MCH 27.1 pg (25.0-35.0); MCHC 31.3 g/dL (31.0-37.0); MCV 86.3 fL (80.0-100.0); Mean Platelet Volume 7.6; Monocytes # (A) 0.3 k/uL (0-1.0); Monocytes % (A) 11 %; Neutrophils # (A) 1.5 k/uL (1.3-7.7); Neutrophils % (A) 48 %; Poikilocytosis Slight; RBC 3.66 m/uL (3.80-5.40); RDW 16.7 % (11.5-15.5)
[2023-08-13 09:05] LABS: Platelet Count 50 k/uL (150-450)
[2023-08-13 09:13] LABS: ALT 61 U/L (4-34); AST 74 U/L (14-36); African American GFR (CKD) 23 (>60 ml/min/1.73 sqM); Albumin 2.5 g/dL (3.5-5.0); Alkaline Phosphatase 249 U/L (38-126); Anion Gap 2 mmol/L; Blood Urea Nitrogen 40 mg/dL (7-17); Calcium 8.9 mg/dL (8.4-10.2); Carbon Dioxide 26 mmol/L (22-30); Chloride 108 mmol/L (98-107); Globulin 2.4 g/dL; Glucose 81 mg/dL (74-99); Magnesium 1.9 mg/dL (1.6-2.3); Non-African American GFR(CKD) 20 (>60 ml/min/1.73 sqM); Phosphorus 4.3 mg/dL (2.5-4.5); Potassium 3.9 mmol/L (3.5-5.1); Sodium 136 mmol/L (137-145); Total Bilirubin 1.4 mg/dL (0.2-1.3); Total Protein 4.9 g/dL (6.3-8.2)
[2023-08-13] MEDS: FUROSEMIDE 20 MG TAB PO SCH (09:15)
--- NOTE | 2023-08-13 10:42 | P.CRDCN ---
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 Navarro, and history of recurrent ascites requiring weekly paracentesis but is now status post TIPS procedure in April at [facility] and no longer requires weekly paracentesis. Patient does not follow with a watch assembly inspector. Patient states that she follows at the [facility] for her chronic conditions. We have been asked to see the patient in consultation for congestive heart failure. Patient presented to the emergency center due to increasing edema to the bilateral lower extremities and shortness of breath as well as abdominal ascites. She had contacted her physician at [facility] was told to come here to the hospital locally. She states she has had difficulty with diuretics and had a rash develop with Aldactone recently. She states they have also made changes to her Lasix. She does not follow with GI locally. Patient has been started on IV Lasix 60 mg every 6 hours. DIAGNOSTICS: EKG reveals sinus mechanism with no signs of acute ischemia. Chest xray correlate for congestive heart failure. CT of the abdomen pelvis without contrast revealed ascites. Minimal pleural effusions. Volume overload and pulmonary edema may be present. Splenomegaly. Abdominal ultrasound reveals small amount of ascites Laboratory data: WBC 3, hemoglobin 9.9, platelet count 50. Sodium 136, potassium 3.9, BUN 40 creatinine 2.41. Magnesium 1.9. Total bilirubin 1.4, AST 74, ALT 61, alkaline phosphatase 249. Troponin negative x 1. proBNP 2030. Current home cardiac medications include none. Echocardiogram performed 05/2023 revealed EF of 60 to 65% with normal systolic function, no pulmonary hypertension. REVIEW OF SYSTEMS: At the time of my exam: CONSTITUTIONAL: Denies fever or chills. HEENT: Denies blurred vision, vision changes, or eye pain. Denies hemoptysis CARDIOVASCULAR: Denies chest pain. Denies orthopnea. Denies PND. Denies palpitations RESPIRATORY: Reports shortness of breath. GASTROINTESTINAL: Denies abdominal pain. Denies nausea or vomiting. HEMATOLOGIC: Denies bleeding disorders. GENITOURINARY: Denies any blood in urine. SKIN: Denies pruitis. Denies rash. PHYSICAL EXAM: VITAL SIGNS: Reviewed. Blood pressure 119/71, heart rate 95, pulse ox 89 to 94% on room air. GENERAL: Well-developed in no acute distress. HEENT: Head is normocephalic. Pupils are equal, round. Sclerae anicteric. Mucous membranes of the mouth are moist. Neck supple. No JVD or thyromegaly LUNGS: Respirations even and unlabored. Lungs with crackles bilaterally HEART: Regular rate and rhythm. S1 and S2 heard. Systolic murmur noted ABDOMEN: Soft. Nondistended. Nontender. EXTREMITIES: Normal range of motion. No clubbing or cyanosis. Peripheral pulses intact. 3-4+ bilateral lower extremity edema NEUROLOGIC: Awake and alert. Oriented x 3. 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 Please reconsult for any new concerns. Nurse practitioner note has been reviewed by physician. Signing provider agrees with the documented findings, assessment, and plan of care documented by NAIL ASSEMBLY MACHINE OPERATOR as a scribe. Past Medical History Past Medical History: GERD/Reflux, Hypertension, Liver Disease, Renal Disease Additional Past Medical History / Comment(s): immunodeficiency History of Any Multi-Drug Resistant Organisms: MRSA Date of last positivie culture/infection: 08/23/2009 MDRO Source:: open wound bilateral arms healed Past Surgical History: Hysterectomy Additional Past Surgical History / Comment(s): common variable immune deficicency, multiple paracentesis last in may 2023, colonoscopy with polyp removal, TIPS Jan 2023 Past Anesthesia/Blood Transfusion Reactions: No Reported Reaction Additional Past Anesthesia/Blood Transfusion Reaction / Comment(s): Slow to wake up. Past Psychological History: Anxiety, Depression Smoking Status: Never smoker Past Alcohol Use History: None Reported Additional Past Alcohol Use History / Comment(s): She denies any alcohol use, marijuana or illicit drug use. She is and lives at home with her jamie moreira. She retired in 2017 from [employer]. Past Drug Use History: None Reported - Past Family History Father Additional Family Medical History / Comment(s): Patient's father at age 92 from CVA. He also had a degenerative muscle disorder. Mother Additional Family Medical History / Comment(s): Mother is alive at age 90 with no major medical problems. Brother(s) Additional Family Medical History / Comment(s): Patient is a total of 4 siblings with no major medical problems. Patient has one daughter with no major medical problems. Medications and Allergies Home Medications Medication Instructions Recorded Confirmed Type ALPRAZolam [Xanax] 1 mg PO HS 08/29/19 08/12/23 History traMADol HCL 50 mg PO BID PRN 08/29/19 08/12/23 History Ergocalciferol (Vitamin D2) 1,250 mcg PO WE 08/29/21 08/12/23 History [Drisdol (50,000 Iu)] Citalopram Hydrobromide [CeleXA] 10 mg PO DIRECTED 08/12/23 08/12/23 History Immun Glob G(IgG)/Pro/Iga 0-50 1 dose IV TH 08/12/23 08/12/23 History [Hizentra 10 Gram/50 ml Syringe] Allergies Allergy/AdvReac Type Severity Reaction Status Date / Time furosemide [From Lasix] Allergy Nausea & Verified 08/12/23 18:40 Vomiting, dizziness sulfamethoxazole Allergy Unknown, Verified 08/12/23 18:40 [From Bactrim] family allergy trimethoprim [From Bactrim] Allergy Unknown, Verified 08/12/23 18:40 family allergy spironolactone AdvReac Unknown Rash/Hives Verified 08/13/23 10:34 [From Aldactone] Physical Exam Vitals: Vital Signs Temp Pulse Pulse Resp BP BP Pulse Ox 08/13/23 07:15 96 08/13/23 07:10 98.3 F 95 20 119/71 89 L 08/13/23 02:00 98.0 F 87 16 130/61 94 L 08/12/23 22:30 86 18 08/12/23 22:00 18 08/12/23 21:45 98.2 F 86 16 150/70 94 L 08/12/23 21:27 78 16 147/72 96 08/12/23 19:03 87 18 154/67 96 08/12/23 14:06 97.8 F 84 18 165/68 97 Intake and Output 08/12/23 08/13/23 08/13/23 22:59 06:59 14:59 Intake Total 240 590 Balance 240 590 Intake: Oral 240 590 Other: Voiding Method Toilet # Voids 2 Weight 77.111 kg Results 08/13/23 07:53 08/13/23 07:53 Cardiac Enzymes 08/12/23 08/12/23 Range/Units 16:12 16:12 AST 80 H (14-36) U/L Troponin I 0.022 (0.000-0.034) ng/mL Coagulation 08/12/23 Range/Units 16:12 PT 11.1 (10.0-12.5) sec APTT 26.5 (22.0-30.0) sec CBC 08/12/23 Range/Units 16:12 WBC 2.4 L (3.8-10.6) k/uL RBC 3.67 L (3.80-5.40) m/uL Hgb 10.1 L (11.4-16.0) gm/dL Hct 31.3 L (34.0-46.0) % Plt Count 44 L (150-450) k/uL Comprehensive Metabolic Panel 08/12/23 Range/Units 16:12 Sodium 139 (137-145) mmol/L Potassium 3.8 (3.5-5.1) mmol/L Chloride 109 H (98-107) mmol/L Carbon Dioxide 29 (22-30) mmol/L BUN 37 H (7-17) mg/dL Creatinine 2.10 H (0.52-1.04) mg/dL Glucose 130 H (74-99) mg/dL Calcium 8.7 (8.4-10.2) mg/dL AST 80 H (14-36) U/L ALT 63 H (4-34) U/L Alkaline Phosphatase 242 H (38-126) U/L Total Protein 5.0 L (6.3-8.2) g/dL Albumin 2.7 L (3.5-5.0) g/dL Current Medications Generic Name Dose Route Start Last Admin Trade Name Freq PRN Reason Stop Dose Admin Furosemide 60 mg 08/12/23 21:00 08/12/23 20:48 Furosemide 10 Mg/Ml 10 Ml Vial IV Not Given Q12HR HELLEN Lorazepam 0.5 mg 08/13/23 00:37 08/13/23 00:56 Lorazepam 1 Mg/0.5 Ml Vial IV 0.5 mg Q6HR PRN Administration Anxiety Morphine Sulfate 4 mg 08/12/23 18:32 Morphine Sulfate 4 Mg/Ml Syringe IV Q4HR PRN Severe Pain (Scale 7 to 10) Naloxone HCl 0.2 mg 08/12/23 18:32 Naloxone 0.4 Mg/Ml 1 Ml Vial IV Q2M PRN Opioid Reversal Ondansetron HCl 4 mg 08/12/23 18:32 Ondansetron 4 Mg/2 Ml Vial IVP Q8HR PRN Nausea And Vomiting Intake and Output 08/12/23 08/13/23 08/13/23 22:59 06:59 14:59 Intake Total 240 590 Balance 240 590 Intake: Oral 240 590 Other: Voiding Method Toilet # Voids 2 Weight 77.111 kg 08/12/23 16:12 08/12/23 16:12
[2023-08-13] MEDS ORDERED: traMADol 50 MG TAB PO PRN (11:19)
[2023-08-13] MEDS: CITALOPRAM HYDROBROMIDE 10 MG TAB PO SCH (11:45)
[2023-08-13] MEDS: PANTOPRAZOLE 40 MG TABLET PO SCH (11:45)
[2023-08-13 12:17] LABS: Appearance,Urine Clear (Clear); Bacteria,Urine Few /hpf; Bilirubin,Urine Negative (Negative); Blood,Urine Negative (Negative); Color,Urine Colorless; Glucose,Urine (UA) Negative (Negative); Ketones,Urine Negative (Negative); Leukocyte Esterase,Urine Moderate (Negative); Nitrite,Urine Negative (Negative); PH, Urine 6.5 (5.0-8.0); Protein,Urine Negative (Negative); RBC,Urine 1 /hpf (0-5); Specific Gravity,Urine 1.005 (1.001-1.035); Squamous Epithelial Cell,Urine 1 /hpf (0-4); Urobilinogen,Urine <2.0 mg/dL (<2.0); WBC,Urine 8 /hpf (0-5)
--- NOTE | 2023-08-13 12:37 | HP ---
HISTORY AND PHYSICAL CHIEF COMPLAINT: Abdomen distention. HISTORY OF PRESENT ILLNESS: This is a 72-year-old woman with past medical history of multiple medical problems including liver cirrhosis with ascites, chronic kidney disease stage III, diastolic dysfunction with heart failure, was being followed by Dr. Figueroa in the outpatient. The patient complains of shortness of breath. The patient also noted bilateral leg edema as well as abdominal distention, however, the CAT scan of the abdomen showed splenomegaly and ultrasound did not show much of ascites. Chest x-ray showed some fluid overload. initially by Cardiology, the patient is being closely monitored. There is no history of any fever, rigors, or chills. Creatinine is elevated up to 2.41 and Nephrology consultation also has been sought. There is no history of any fever, rigors, or chills. PAST MEDICAL HISTORY: History of hypertension, history of chronic liver disease, rest of the history and rest of the chart is also reviewed. HOME MEDICATIONS: Reviewed include Celexa, dose and rest of medications reviewed. ALLERGIES: Reviewed include Lasix, nausea, vomiting, dizziness and Bactrim. FAMILY HISTORY: History of CVA. SOCIAL HISTORY: No history of smoking. REVIEW OF SYSTEMS: A 14-point review is negative except as mentioned earlier. PHYSICAL EXAMINATION: VITAL SIGNS: Pulse is 87, blood pressure 130/61, respirations 16. HEENT: Conjunctivae normal. NECK: No jugular venous distention. CARDIOVASCULAR: S1, S2. RESPIRATIONS: Few scattered rhonchi and crackles. ABDOMEN: Soft, distended. LEGS: No edema, no swelling. NERVOUS SYSTEM: No focal deficits. SKIN: No ulcer, rash, or bleeding. JOINTS: No active deforming arthropathy. LABS: Reviewed, creatinine 2.41. ASSESSMENT: 1. Shortness of breath, possibly CHF acute exacerbation acute on chronic diastolic dysfunction. 2. Cirrhosis of liver with minimal ascites. 3. Acute on chronic kidney disease. 4. Mild pancytopenia secondary to cirrhosis of liver. 5. Common variable immune deficiency, on IVIG. 6. Hypertension. 7. History of MRSA. 8. Anxiety, depression. RECOMMENDATIONS AND DISCUSSION: This 72-year-old woman presented with multiple complex medical issues, we will monitor the patient closely. Continue with diuretics as such. I would recommend to continue to monitor the liver functions as well as kidney functions. Nephrology consultation. I would also recommend pulmonary consultation because of the shortness of breath. Cardiology notes have been noted. Overall prognosis is extremely guarded because of multiple complex medical issues. Further recommendations to follow. See orders for details. MMODL / IJN: [id number] / MTDD
[2023-08-13] MEDS: ONDANSETRON 4 MG/2 ML VIAL IVP PRN (13:02)
--- NOTE | 2023-08-13 14:19 | XR ---
EXAMINATION TYPE: XR abdomen 1V DATE OF EXAM: 08/13/2023 COMPARISON: NONE HISTORY: Pain distention TECHNIQUE: One view abdominal series FINDINGS: The osseous structures are intact. The bowel gas pattern is nonspecific. A curvature of the spine. U pper abdomen not entirely IMPRESSION: 1. Nonspecific abdomen.
--- NOTE | 2023-08-13 15:23 | P.NPCON ---
History of Present Illness - Reason for Consult chronic renal failure - History of Present Illness patient is a 72-year-old female with history of chronic kidney disease stage IV who follows at [facility]. baseline creatinine around 2 mg/dL. Patient also has underlying history of liver cirrhosis status post TIPS procedure recently at [facility] Patient is admitted to the hospital with complaints of increased weight gain, shortness of breath and increased leg swelling. blood pressure has not been low. Serum creatinine at 2.4 mg/dL today. status post IV Lasix yesterday, currently maintained on oral Lasix. patient reports good response to IV Lasix yesterday. chest x-ray shows evidence of pulmonary vascular congestion. Abdominal ultrasound did not paracentesis. Patient reports that her last paracentesis was about 5 weeks ago. Review of Systems as per HPI Past Medical History Past Medical History: GERD/Reflux, Hypertension, Liver Disease, Renal Disease Additional Past Medical History / Comment(s): immunodeficiency History of Any Multi-Drug Resistant Organisms: MRSA Date of last positivie culture/infection: 08/23/2009 MDRO Source:: open wound bilateral arms healed Past Surgical History: Hysterectomy Additional Past Surgical History / Comment(s): common variable immune deficicency, multiple paracentesis last in may 2023, colonoscopy with polyp removal, TIPS Jan 2023 Past Anesthesia/Blood Transfusion Reactions: No Reported Reaction Additional Past Anesthesia/Blood Transfusion Reaction / Comment(s): Slow to wake up. Past Psychological History: Anxiety, Depression Smoking Status: Never smoker Past Alcohol Use History: None Reported Additional Past Alcohol Use History / Comment(s): She denies any alcohol use, marijuana or illicit drug use. She is and lives at home with her . She retired in 2016 from [employer]. Past Drug Use History: None Reported - Past Family History Father Additional Family Medical History / Comment(s): Patient's father at age 92 from CVA. He also had a degenerative muscle disorder. Mother Additional Family Medical History / Comment(s): Mother is alive at age 90 with no major medical problems. Brother(s) Additional Family Medical History / Comment(s): Patient is a total of 4 siblings with no major medical problems. Patient has one daughter with no major medical problems. Medications and Allergies Home Medications Medication Instructions Recorded Confirmed Type ALPRAZolam [Xanax] 1 mg PO HS 08/29/19 08/12/23 History traMADol HCL 50 mg PO BID PRN 08/29/19 08/12/23 History Ergocalciferol (Vitamin D2) 1,250 mcg PO WE 08/29/21 08/12/23 History [Drisdol (50,000 Iu)] Citalopram Hydrobromide [CeleXA] 10 mg PO DIRECTED 08/12/23 08/12/23 History Immun Glob G(IgG)/Pro/Iga 0-50 1 dose IV TH 08/12/23 08/12/23 History [Hizentra 10 Gram/50 ml Syringe] Allergies Allergy/AdvReac Type Severity Reaction Status Date / Time sulfamethoxazole Allergy Unknown, Verified 08/12/23 18:40 [From Bactrim] family allergy trimethoprim [From Bactrim] Allergy Unknown, Verified 08/12/23 18:40 family allergy spironolactone AdvReac Unknown Rash/Hives Verified 08/13/23 10:34 [From Aldactone] Physical Exam Vitals: Vital Signs Temp Pulse Pulse Resp BP BP Pulse Ox 08/13/23 12:37 98.3 F 82 18 133/69 96 08/13/23 08:17 97 08/13/23 07:15 96 08/13/23 07:10 98.3 F 95 20 119/71 89 L 08/13/23 02:00 98.0 F 87 16 130/61 94 L 08/12/23 22:30 86 18 08/12/23 22:00 18 08/12/23 21:45 98.2 F 86 16 150/70 94 L 08/12/23 21:27 78 16 147/72 96 08/12/23 19:03 87 18 154/67 96 Intake and Output 08/13/23 08/13/23 08/13/23 06:59 14:59 22:59 Intake Total 590 100 Balance 590 100 Intake: Oral 590 100 Other: Voiding Method Toilet # Voids 2 Weight 77.7 kg patient is awake, comfortable, no acute distress Examination of the heart S1 and S2 Examination of the lungs bilateral breath sounds are heard Abdomen is distended soft nontender. Ascites noted. 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 Chronic kidney disease NKF stage IV with baseline creatinine around 2 mg/dL. Being followed at [facility]. 2. Acute kidney injury, most likely ATN. Rule out hepatorenal syndrome. 3. Volume overload 4. History of liver cirrhosis status post TIPS procedure recently at [facility]. 5. Gastroesophageal reflux disease maintained on proton ex Plan: switch back to IV Lasix 40 mg every 12 hours. Accurate I's and O's IV albumin Add Sandostatin Repeat labs in a.m. Continue to avoid any nephrotoxic agents. Thank you for the consultation. We will continue to follow the patient with you during her hospitalization.
[2023-08-13] MEDS: OCTREOTIDE 100 MCG/ML INJ SQ SCH (16:07)
--- NOTE | 2023-08-13 16:10 | P.CONS ---
History of Present Illness - Reason for Consult Consult date: 08/13/23 Ascites, distention, liver disease Requesting physician: Rowena Dorsey - Chief Complaint Shortness of breath - History of Present Illness This a pleasant 72-year-old female who presented to the emergency department with concerns of shortness of breath and lower extremity edema. She has a past medical history including common variable immune deficiency, hypertension, c hronic renal disease and liver cirrhosis. Patient was also complaining of abdominal distention and medical team had ordered a paracentesis however patient did not have enough fluid to proceed. Gastroenterology was consulted for ascites and liver disease. Patient states she was diagnosed with liver disease about 3 years ago she follows with specialist at [facility]. They believe that the liver cirrhosis is secondary to the multiple medication she has been on for her common variable immune deficiency. She has had several paracentesis in the past. Her last paracentesis was 05/10/2023 with 2.6 L removed. She states that she had been on spironolactone and Lasix. She said that she is stopped taking spironolactone a couple months ago because it was making her nauseated. She states her general operations manager through [facility] is aware and he has been managing her kidney function and diuretics. She states she is feeling better today. Shortness of breath is improved. St ates that she does not urinate much on her own it is improved with her Lasix. Review of Systems REVIEW OF SYSTEMS: CARDIOPULMONARY: No chest pain, shortness of breath.. Lower extremity edema. Gastrointestinal: No abdominal pain. No nausea or vomiting. No hematemesis, coffee-ground emesis. No rectal bleeding, or melena. GENITOURINARY: No dysuria or hematuria. Decreased urine output. MUSCULOSKELETAL: Reports normal range of motion., Joint pain. SKIN: No rashes. No jaundice. ENDOCRINE: No chills, fevers. No excessive weight gain or loss. No polydipsia or polyuria. PSYCHIATRIC: Unremarkable. NEUROLOGY: No change in mental status. Denies dizziness, headache. ENT: Vision unremarkable. CONSTITUTIONAL: No recent weight loss. No fever, chills, night sweats. Past Medical History Past Medical History: GERD/Reflux, Hypertension, Liver Disease, Renal Disease Additional Past Medical History / Comment(s): immunodeficiency History of Any Multi-Drug Resistant Organisms: MRSA Year Discovered:: 08/23/2009 MDRO Source:: open wound bilateral arms healed Past Surgical History: Hysterectomy Additional Past Surgical History / Comment(s): common variable immune deficicency, multiple paracentesis last in may 2023, colonoscopy with polyp removal, TIPS Jan 2023 Past Anesthesia/Blood Transfusion Reactions: No Reported Reaction Additional Past Anesthesia/Blood Transfusion Reaction / Comm: Slow to wake up. Past Psychological History: Anxiety, Depression Smoking Status: Never smoker Past Alcohol Use History: None Reported Additional Past Alcohol Use History / Comment(s): She denies any alcohol use, marijuana or illicit drug use. She is and lives at home with her . She retired in 2017 from [employer]. Past Drug Use History: None Reported - Past Family History Father Additional Family Medical History / Comment(s): Patient's father at age 92 from CVA. He also had a degenerative muscle disorder. Mother Additional Family Medical History / Comment(s): Mother is alive at age 90 with no major medical problems. Brother(s) Additional Family Medical History / Comment(s): Patient is a total of 4 siblings with no major medical problems. Patient has one daughter with no major medical problems. Medications and Allergies Home Medications Medication Instructions Recorded Confirmed Type ALPRAZolam [Xanax] 1 mg PO HS 08/29/19 08/12/23 History traMADol HCL 50 mg PO BID PRN 08/29/19 08/12/23 History Ergocalciferol (Vitamin D2) 1,250 mcg PO WE 08/29/21 08/12/23 History [Drisdol (50,000 Iu)] Citalopram Hydrobromide [CeleXA] 10 mg PO DIRECTED 08/12/23 08/12/23 History Immun Glob G(IgG)/Pro/Iga 0-50 1 dose IV TH 08/12/23 08/12/23 History [Hizentra 10 Gram/50 ml Syringe] Allergies Allergy/AdvReac Type Severity Reaction Status Date / Time sulfamethoxazole Allergy Unknown, Verified 08/12/23 18:40 [From Bactrim] family allergy trimethoprim [From Bactrim] Allergy Unknown, Verified 08/12/23 18:40 family allergy spironolactone AdvReac Unknown Rash/Hives Verified 08/13/23 10:34 [From Aldactone] Physical Exam Vitals: Vital Signs Temp Pulse Pulse Resp BP BP Pulse Ox 08/13/23 12:37 98.3 F 82 18 133/69 96 08/13/23 08:17 97 08/13/23 07:15 96 08/13/23 07:10 98.3 F 95 20 119/71 89 L 08/13/23 02:00 98.0 F 87 16 130/61 94 L 08/12/23 22:30 86 18 08/12/23 22:00 18 08/12/23 21:45 98.2 F 86 16 150/70 94 L 08/12/23 21:27 78 16 147/72 96 08/12/23 19:03 87 18 154/67 96 Intake and Output 08/13/23 08/13/23 08/13/23 06:59 14:59 22:59 Intake Total 590 100 Balance 590 100 Intake: Oral 590 100 Other: Voiding Method Toilet # Voids 2 Weight 77.7 kg General appearance: The patient is alert, oriented, appears in no acute distress. HET: Head is normocephalic and atraumatic. Conjunctiva pink. Sclera anicteric. Neck: Supple without lymphadenopathy. Trachea midline. Heart: Regular. Lungs: Equal expansion, normal respiratory effort. Abdomen: Soft, nontender, nondistended. Skin: No rashes. No jaundice. Extremities: Normal skin color and turgor. Bilateral lower extremity pitting edema. Neurological: No focal deficits. Alert and oriented x3. Results CBC & Chem 7: 08/13/23 07:53 08/13/23 07:53 Labs: Abnormal Lab Results - Last 24 Hours (Table) 08/12/23 08/12/23 08/13/23 Range/Units 16:12 16:12 07:53 WBC 2.4 L 3.0 L (3.8-10.6) k/uL RBC 3.67 L 3.66 L (3.80-5.40) m/uL Hgb 10.1 L 9.9 L (11.4-16.0) gm/dL Hct 31.3 L 31.6 L (34.0-46.0) % RDW 16.4 H 16.7 H (11.5-15.5) % Plt Count 44 L 50 L (150-450) k/uL Lymphocytes # 0.5 L 0.7 L (1.0-4.8) k/uL D-Dimer (<0.60) mg/L FEU Sodium (137-145) mmol/L Chloride 109 H (98-107) mmol/L BUN 37 H (7-17) mg/dL Creatinine 2.10 H (0.52-1.04) mg/dL Glucose 130 H (74-99) mg/dL Total Bilirubin 1.4 H (0.2-1.3) mg/dL AST 80 H (14-36) U/L ALT 63 H (4-34) U/L Alkaline Phosphatase 242 H (38-126) U/L Total Protein 5.0 L (6.3-8.2) g/dL Albumin 2.7 L (3.5-5.0) g/dL Ur Leukocyte Esterase (Negative) Urine WBC (0-5) /hpf Urine Bacteria (None) /hpf 08/13/23 08/13/23 08/13/23 Range/Units 07:53 11:52 14:17 WBC (3.8-10.6) k/uL RBC (3.80-5.40) m/uL Hgb (11.4-16.0) gm/dL Hct (34.0-46.0) % RDW (11.5-15.5) % Plt Count (150-450) k/uL Lymphocytes # (1.0-4.8) k/uL D-Dimer 1.94 H (<0.60) mg/L FEU Sodium 136 L (137-145) mmol/L Chloride 108 H (98-107) mmol/L BUN 40 H (7-17) mg/dL Creatinine 2.41 H (0.52-1.04) mg/dL Glucose (74-99) mg/dL Total Bilirubin 1.4 H (0.2-1.3) mg/dL AST 74 H (14-36) U/L ALT 61 H (4-34) U/L Alkaline Phosphatase 249 H (38-126) U/L Total Protein 4.9 L (6.3-8.2) g/dL Albumin 2.5 L (3.5-5.0) g/dL Ur Leukocyte Esterase Moderate H (Negative) Urine WBC 8 H (0-5) /hpf Urine Bacteria Few H (None) /hpf Comments: CT abdomen pelvis without contrast reports ascites. This is less in comparison study. Minimal pleural effusions. Volume overload and pulmonary edema may be present within the visualized lung bases. Splenomegaly. Abdominal ultrasound reports small amount of ascites. Assessment and Plan (1) Liver cirrhosis Narrative/Plan: 72-year-old female diagnosed with liver disease with underlying liver cirrhosis and portal hypertension secondary to medications for her common variable immune deficiency diagnosed approximately 3 years ago. Patient follows with liver specialist and general operations manager at the [facility]. States that they monitor her closely. Patient was not able to tolerate her Aldactone and states that she had stopped taking it but her general operations manager was aware. She was maintained on Lasix 40 mg daily. Patient presents with pulmonary effusions and lower extremity edema as well as acute on chronic kidney disease. No further workup indicated from gastroenterology. Recommend that she follows with her information assistant on discharge. There is no enough fluid for paracentesis. Continue with diuretics per recommendations from nephrology. Current Visit: Yes Status: Acute Code(s): K74.60 - UNSPECIFIED CIRRHOSIS OF LIVER SNOMED Code(s): 47650455 (2) Portal hypertension Current Visit: Yes Status: Acute Code(s): K76.6 - PORTAL HYPERTENSION SNOMED Code(s): 85068532 (3) Pleural effusion Current Visit: Yes Status: Acute Code(s): J90 - PLEURAL EFFUSION, NOT ELSEWHERE CLASSIFIED SNOMED Code(s): 81865821 (4) Ascites Current Visit: Yes Status: Acute Code(s): R18.8 - OTHER ASCITES SNOMED Code(s): 021851214 (5) Chronic kidney disease Current Visit: Yes Status: Acute Code(s): N18.9 - CHRONIC KIDNEY DISEASE, UNSPECIFIED SNOMED Code(s): 844924698 (6) Common variable immunodeficiency Current Visit: No Status: Acute Code(s): D83.9 - COMMON VARIABLE IMMUNODEFICIENCY, UNSPECIFIED SNOMED Code(s): 16881533 (7) Splenomegaly Current Visit: No Status: Acute Code(s): R16.1 - SPLENOMEGALY, NOT ELSEWHERE CLASSIFIED SNOMED Code(s): 37748717 Plan: 1. Continue symptomatic and supportive care 2. Diuretics per recommendations from nephrology 3. Avoid hepatotoxic medications 4. Paracentesis was ordered however not enough fluid 5. No further workup from gastroenterology 6. Recommend outpatient follow-up with patient's information assistant and general operations manager at the [facility] 7. Rest of medical management per primary medical team Thank you for this consultation, we will continue to follow. Dr. Jaxon Brown I agree with the dictator's note, documented as a scribe by Estrellita Ca.
[2023-08-13] MEDS: ALBUMIN HUMAN 25% 50 ML in EMPTY BAG 1 BAG IVPB ONE (16:13)
[2023-08-13] MEDS: FUROSEMIDE 10 MG/ML 4 ML VIAL IV SCH (20:35)
[2023-08-13] MEDS: ALPRAZolam 1 MG TAB PO SCH (20:36)
--- NOTE | 2023-08-14 08:11 | XR ---
EXAMINATION TYPE: XR chest 1V portable DATE OF EXAM: 08/14/2023 COMPARISON: 08/12/2023 HISTORY: Difficulty breathing TECHNIQUE: Single frontal view of the chest is obtained. FINDINGS: There is diffuse bilateral interstitial pattern with bilateral consolidation and small eff usion. Heart size is mildly prominent. No pneumothorax. Osseous structures stable. IMPRESSION: 1. Correlate for pulmonary fibrosis with superimposed interstitial pneumonitis or venous congestion. There are small bilateral pleural effusions and basilar infiltrate. Findings are stable.
--- NOTE | 2023-08-14 10:04 | P.PN ---
Subjective patient is seen for follow-up for chronic kidney disease and acute kidney injury. underlying CK D stage IV being followed at [facility] with baseline cr eatinine around 2 mg/dL. Patient is admitted to the hospital with complaints of increased leg swelling and shortness of breath. She is currently being diuresed. no significant complaints. Objective - Vital Signs Vital signs: Vital Signs Temp 98.0 F 08/14/23 07:44 Pulse 74 08/14/23 07:44 Resp 16 08/14/23 07:44 BP 112/64 08/14/23 07:44 Pulse Ox 90 L 08/14/23 07:44 FiO2 Intake & Output 08/13/23 08/14/23 08/14/23 18:59 06:59 18:59 Intake Total 150 Balance 150 Weight 77.7 kg 37 kg Intake: Intake, IV Titration 50 Amount Albumin Human 25% 50 ml 50 In Empty Bag 1 bag @ 50 mls/hr IVPB ONCE ONE Rx#: [id number] Oral 100 Other: Voiding Method Toilet - Exam patient is awake, comfortable, no acute distress Examination of the heart S1 and S2 Examination of the lungs bilateral breath sounds are heard Abdomen is distended soft nontender. Ascites noted. Examination of lower extremities shows edema 3+ bilaterally with erythema of the skin noted bilaterally CLUTCH ASSEMBLER exam grossly intact - Labs CBC & Chem 7: 08/13/23 07:53 08/13/23 07:53 Labs: Abnormal Lab Results - Last 24 Hours (Table) 08/13/23 08/13/23 Range/Units 11:52 14:17 D-Dimer 1.94 H (<0.60) mg/L FEU Ur Leukocyte Esterase Moderate H (Negative) Urine WBC 8 H (0-5) /hpf Urine Bacteria Few H (None) /hpf Assessment and Plan Assessment: 1. Chronic kidney disease NKF stage IV with baseline creatinine around 2 mg/dL. Being followed at [facility]. 2. Acute kidney injury, most likely ATN. Rule out hepatorenal syndrome. 3. Volume overload 4. History of liver cirrhosis status post TIPS procedure recently at [facility]. 5. Gastroesophageal reflux disease maintained on protonix Plan: continue with IV Lasix Continue Sandostatin Check labs today and in a.m. Accurate I's and O's Maintain salt restriction
[2023-08-14 11:22] LABS: ALT 52 U/L (8-44); AST 63 U/L (13-35); Albumin 2.8 g/dL (3.8-4.9); Albumin/Globulin Ratio 1.75 Ratio (1.60-3.17); Alkaline Phosphatase 217 U/L (41-126); Blood Urea Nitrogen 42.3 mg/dL (9.0-27.0); Calcium 8.2 mg/dL (8.7-10.3); Carbon Dioxide 26.2 mmol/L (21.6-31.8); Chloride 104 mmol/L (96-109); Globulin 1.6 g/dL (1.6-3.3); Glucose 96 mg/dL (70-110); Potassium 4.4 mmol/L (3.5-5.5); Sodium 140 mmol/L (135-145); Total Protein 4.4 g/dL (6.2-8.2)
[2023-08-14 11:59] LABS: Basophils # (A) 0.03 X 10*3/uL (0.00-0.10); Basophils % (A) 1.1 %; Eosinophils # (A) 0.38 X 10*3/uL (0.04-0.35); Eosinophils % (A) 14.4 %; HGB 8.8 g/dL (12.0-15.0); Immature Platelet Fraction 1.7 % (1.1-6.1); Lymphocytes # (A) 0.62 X 10*3/uL (0.90-5.00); Lymphocytes % (A) 23.5 %; MCH 27.4 pg (27.0-32.0); MCHC 32.6 g/dL (32.0-37.0); MCV 84.1 FL (80.0-97.0); Mean Platelet Volume 11.5 FL (9.5-12.2); Monocytes # (A) 0.37 X 10*3/uL (0.20-1.00); NRBC Per 100 WBC 0 X 10*3/uL (0.00-0.01); Neutrophils # (A) 1.23 X 10*3/uL (1.80-7.70); Neutrophils % (A) 46.6 %; Platelet Count 40 X 10*3/uL (140-440); RBC 3.21 X 10*6/uL (4.10-5.20); RDW 16.4 % (11.5-14.5); WBC 2.64 X 10*3/uL (4.50-10.00)
--- NOTE | 2023-08-14 13:14 | P.PN ---
Subjective Progress Note Date: 08/14/23 Principal diagnosis: Liver disease This a pleasant 72-year-old female who presented to the emergency department with concerns of shortness of breath and lower extremity edema. She has a past medical history including common variable immune deficiency, hypertension, chronic renal disease and liver cirrhosis. Patient was also complaining of abdominal distention and medical team had ordered a paracentesis however patient did not have enough fluid to proceed. Gastroenterology was consulted for ascites and liver disease. Patient states she was diagnosed with liver disease about 3 years ago she follows with specialist at [facility]. They believe that the liver cirrhosis is secondary to the multiple medication she has been on for her common variable immune deficiency. She has had several paracentesis in the past. Her last paracentesis was 05/10/2023 with 2.6 L removed. She states that she had been on spironolactone and Lasix. She said that she is stopped taking spironolactone a couple months ago because it was making her nauseated. She states her record press supervisor through [facility] is aware and he has been managing her kidney function and diuretics. She states she is feeling better today. Shortness of breath is improved. States that she does not urinate much on her own it is improved with her Lasix. 08/14/2023 Patient seen and examined today as a follow-up. She is without any complaints. She denies any abdominal pain, nausea or vomiting. No shortness of breath or chest pain at this time. She was seen by nephrology who ordered albumin and octreotide, she is maintained on Lasix 40 mg every 12 hours. Chest x-ray reports correlate for pulmonary fibrosis with superimposed interstitial pneumonitis or venous congestion. There are small bilateral pleural effusions and basilar infiltrate. Findings are stable. Repeat LFTs total bilirubin 1.0 AST 63 ALT 52 alkaline phosphatase 217 Objective - Vital Signs Vital signs: Vital Signs Temp 98.0 F 08/14/23 07:44 Pulse 74 08/14/23 07:44 Resp 16 08/14/23 07:44 BP 112/64 08/14/23 07:44 Pulse Ox 90 L 08/14/23 07:44 FiO2 Intake & Output 08/13/23 08/14/23 08/14/23 18:59 06:59 18:59 Intake Total 150 Balance 150 Weight 77.7 kg 37 kg 77 kg Intake: Intake, IV Titration 50 Amount Albumin Human 25% 50 ml 50 In Empty Bag 1 bag @ 50 mls/hr IVPB ONCE ONE Rx#: [id number] Oral 100 Other: Voiding Method Toilet Toilet - Exam General appearance: The patient is alert, oriented, appears in no acute distress. HET: Head is normocephalic and atraumatic. Conjunctiva pink. Sclera anicteric. Neck: Supple without lymphadenopathy. Abdomen: Soft, nontender, nondistended. Extremities: Normal skin color and turgor. Lower extremity edema bilaterally. Skin: No rashes, no jaundice Neurological: No focal deficits. Alert and oriented. - Labs CBC & Chem 7: 08/14/23 07:14 08/14/23 07:14 Labs: Abnormal Lab Results - Last 24 Hours (Table) 08/13/23 08/14/23 08/14/23 Range/Units 14:17 07:14 07:14 WBC 2.64 L (4.50-10.00) X 10*3/uL RBC 3.21 L (4.10-5.20) X 10*6/uL Hgb 8.8 L (12.0-15.0) g/dL Hct 27.0 L (37.2-46.3) % RDW 16.4 H (11.5-14.5) % Plt Count 40 L (140-440) X 10*3/uL Neutrophils # 1.23 L (1.80-7.70) X 10*3/uL Lymphocytes # 0.62 L (0.90-5.00) X 10*3/uL Eosinophils # 0.38 H (0.04-0.35) X 10*3/uL D-Dimer 1.94 H (<0.60) mg/L FEU BUN 42.3 H (9.0-27.0) mg/dL Creatinine 3.0 H (0.6-1.5) mg/dL Est GFR (CKD-EPI) 16 L (>=60) Calcium 8.2 L (8.7-10.3) mg/dL AST 63 H (13-35) U/L ALT 52 H (8-44) U/L Alkaline Phosphatase 217 H (41-126) U/L Total Protein 4.4 L (6.2-8.2) g/dL Albumin 2.8 L (3.8-4.9) g/dL Assessment and Plan (1) Liver cirrhosis Narrative/Plan: 72-year-old female diagnosed with liver disease with underlying liver cirrhosis and portal hypertension secondary to medications for her common variable immune deficiency diagnosed approximately 3 years ago. Patient follows with liver specialist and record press supervisor at the [facility]. States that they monitor her closely. Patient was not able to tolerate her Aldactone and states that she had stopped taking it but her record press supervisor was aware. She was maintained on Lasix 40 mg daily. Patient presents with pulmonary effusions and lower extremity edema as well as acute on chronic kidney disease. No further workup indicated from gastroenterology. Recommend that she follows with her livestock exhibitor on discharge. There is no enough fluid for paracentesis. Continue with diuretics per recommendations from nephrology. Current Visit: Yes Status: Acute Code(s): K74.60 - UNSPECIFIED CIRRHOSIS OF LIVER SNOMED Code(s): 98092353 (2) Portal hypertension Current Visit: Yes Status: Acute Code(s): K76.6 - PORTAL HYPERTENSION SNOMED Code(s): 85527824 (3) Pleural effusion Narrative/Plan: Consider possible pulmonology consultation Current Visit: Yes Status: Acute Code(s): J90 - PLEURAL EFFUSION, NOT ELSEWHERE CLASSIFIED SNOMED Code(s): 24295365 (4) Ascites Current Visit: Yes Status: Acute Code(s): R18.8 - OTHER ASCITES SNOMED Code(s): 087243522 (5) Chronic kidney disease Current Visit: Yes Status: Acute Code(s): N18.9 - CHRONIC KIDNEY DISEASE, UNSPECIFIED SNOMED Code(s): 824604253 (6) Common variable immunodeficiency Current Visit: No Status: Acute Code(s): D83.9 - COMMON VARIABLE IMMUNODEFICIENCY, UNSPECIFIED SNOMED Code(s): 20111586 (7) Splenomegaly Current Visit: No Status: Acute Code(s): R16.1 - SPLENOMEGALY, NOT ELSEWHERE CLASSIFIED SNOMED Code(s): 09465219 Plan: 1. Continue symptomatic and supportive care 2. Diuretics per recommendations from nephrology 3. Avoid hepatotoxic medications 4. Paracentesis was ordered however not enough fluid 5. No further workup from gastroenterology 6. Recommend outpatient follow-up with patient's livestock exhibitor and record press supervisor at the [facility] 7. Rest of medical management per primary medical team Thank you for this consultation, we will sign off at this time. Dr. Jaxon Brown I agree with the dictator's note, documented as a scribe by Estrellita Ca.
[2023-08-14] MEDS: ALBUMIN HUMAN 25% 50 ML in EMPTY BAG 1 BAG IVPB ONE (15:07)
[2023-08-14] MEDS: MIDODRINE 5 MG TAB PO SCH (17:42)
--- NOTE | 2023-08-14 22:44 | PN ---
PROGRESS NOTE DATE OF SERVICE: 08/14/2023 SUBJECTIVE: This is a 72-year-old woman, who was admitted with shortness of breath, also had a possible CHF acute exacerbation and cirrhosis of liver. Also, the patient has multiple medical problems. The patient is being closely monitored at this time. The most recent chest x-ray which I evaluated personally showed evidence of CHF. PAST MEDICAL HISTORY: Reviewed. REVIEW OF SYSTEMS: A 14-point review is negative except as mentioned earlier. CURRENT MEDICATIONS: Reviewed include Lasix. Doses and rest of medications noted. PHYSICAL EXAMINATION: VITAL SIGNS: Pulse 72, blood pressure 123/64, respirations 17. HEENT: Conjunctivae normal. NECK: No JVD. CARDIOVASCULAR: S1, S2. RESPIRATIONS: Breath sounds diminished at the bases. A few scattered rhonchi and crackles. ABDOMEN: Soft. NERVOUS SYSTEM: Nonfocal. LABORATORY DATA: Reviewed. Creatinine is 3. ASSESSMENT: 1. Shortness of breath, possibly congestive heart failure acute exacerbation, acute on chronic diastolic dysfunction. 2. Acute on chronic kidney disease, stage 3. 3. Cirrhosis of liver with minimal ascites. 4. Mild pancytopenia secondary to cirrhosis of liver. 5. Common variable immunodeficiency, on IVIG. 6. Hypertension. 7. History of methicillin-resistant Staphylococcus aureus. 8. Anxiety and depression. RECOMMENDATIONS: Recommend to continue current management and continue symptomatic treatment. Otherwise, we will follow closely with Nephrology and Cardiology. Overall prognosis extremely guarded because of multiple complex medical issues. D-dimer is elevated. Further recommendations to follow. See orders for further details. MMODL / IJN: [id number] /
--- NOTE | 2023-08-15 07:36 | XR ---
EXAMINATION TYPE: XR chest 1V portable DATE OF EXAM: 08/15/2023 COMPARISON: 08/14/2023 HISTORY: Follow-up CHF TECHNIQUE: Single frontal view of the chest is obtained. FINDINGS: There is been no significant interval change in the pulmonary vascular congestion, interstitial edema and mild scattered airspace edema. There is no pneumothorax. IMPRESSION: No change in the findings most consistent with CHF.
[2023-08-15 09:41] LABS: ALT 58 U/L (8-44); AST 69 U/L (13-35); Albumin 3.3 g/dL (3.8-4.9); Albumin/Globulin Ratio 2.06 Ratio (1.60-3.17); Alkaline Phosphatase 208 U/L (41-126); Blood Urea Nitrogen 45.2 mg/dL (9.0-27.0); Calcium 8.4 mg/dL (8.7-10.3); Chloride 104 mmol/L (96-109); Globulin 1.6 g/dL (1.6-3.3); Glucose 110 mg/dL (70-110); Potassium 4.2 mmol/L (3.5-5.5); Sodium 141 mmol/L (135-145); Total Bilirubin 1.1 mg/dL (0.3-1.2); Total Protein 4.9 g/dL (6.2-8.2)
[2023-08-15 12:36] LABS: Basophils # (A) 0.04 X 10*3/uL (0.00-0.10); Basophils % (A) 1.1 %; Eosinophils # (A) 0.43 X 10*3/uL (0.04-0.35); HCT 28.5 % (37.2-46.3); HGB 9.3 g/dL (12.0-15.0); Immature Platelet Fraction 2.1 % (1.1-6.1); Lymphocytes % (A) 19.6 %; MCHC 32.6 g/dL (32.0-37.0); MCV 85.8 FL (80.0-97.0); Mean Platelet Volume 10.8 FL (9.5-12.2); Monocytes % (A) 11.2 %; NRBC Per 100 WBC 0 X 10*3/uL (0.00-0.01); Neutrophils % (A) 55.8 %; Platelet Count 43 X 10*3/uL (140-440); RBC 3.32 X 10*6/uL (4.10-5.20); RDW 16.6 % (11.5-14.5); WBC 3.58 X 10*3/uL (4.50-10.00)
--- NOTE | 2023-08-15 13:31 | P.PN ---
Subjective patient is seen for follow-up for chronic kidney disease and acute kidney injury. underlying CK D stage IV being followed at [facility] with baseline cr eatinine around 2 mg/dL. Patient is admitted to the hospital with complaints of increased leg swelling and shortness of breath. patient was maintained on diuretics but these were held yesterday as creatinine had increased to 3.0. Urine output noted to be at 900 ML for 24 hours. This morning patient states she she feels foggy. She is unable to text her daughter due to increased shaking of her hands. ammonia level at 141 No significant shortness of breath. Objective - Vital Signs Vital signs: Vital Signs Temp 97.6 F 08/15/23 12:57 Pulse 62 08/15/23 12:57 Resp 16 08/15/23 12:57 BP 129/59 08/15/23 12:57 Pulse Ox 96 08/15/23 12:57 FiO2 Intake & Output 08/14/23 08/15/23 08/15/23 18:59 06:59 18:59 Intake Total 480 Output Total 900 Balance -900 480 Weight 77 kg 36.2 kg 36.2 kg Intake: Oral 480 Output: Urine 900 Other: Voiding Method Toilet Indwelling Catheter Indwelling Catheter - Exam patient is awake, comfortable, no acute distress Asterixis noted today Examination of the heart S1 and S2 Examination of the lungs bilateral breath sounds are heard, decreased breath sounds at the bases Abdomen is distended soft nontender. Ascites noted. Examination of lower extremities shows edema 3+ bilaterally with erythema of the skin noted bilaterally DIRECTOR [employer]ODUCT exam grossly intact - Labs CBC & Chem 7: 08/15/23 04:34 08/15/23 04:34 Labs: Abnormal Lab Results - Last 24 Hours (Table) 08/15/23 08/15/23 08/15/23 Range/Units 04:34 04:34 04:34 WBC 3.58 L (4.50-10.00) X 10*3/uL RBC 3.32 L (4.10-5.20) X 10*6/uL Hgb 9.3 L (12.0-15.0) g/dL Hct 28.5 L (37.2-46.3) % RDW 16.6 H (11.5-14.5) % Plt Count 43 L (140-440) X 10*3/uL Lymphocytes # 0.70 L (0.90-5.00) X 10*3/uL Eosinophils # 0.43 H (0.04-0.35) X 10*3/uL BUN 45.2 H (9.0-27.0) mg/dL Creatinine 3.3 H (0.6-1.5) mg/dL Est GFR (CKD-EPI) 14 L (>=60) Calcium 8.4 L (8.7-10.3) mg/dL AST 69 H (13-35) U/L ALT 58 H (8-44) U/L Alkaline Phosphatase 208 H (41-126) U/L Ammonia 141 H (<30) umol/L Total Protein 4.9 L (6.2-8.2) g/dL Albumin 3.3 L (3.8-4.9) g/dL Assessment and Plan Assessment: 1. Chronic kidney disease NKF stage IV with baseline creatinine around 2 mg/dL. Being followed at [facility]. 2. Acute kidney injury, most likely ATN. Rule out hepatorenal syndrome. patient is not oliguric. The diuretics will be decreased. chest x-ray didn't show pulmonary vascular congestion. 3. Volume overloadwith mostly lower extremity edema but chest x-ray from today did show pulmonary vascular congestion. 4. History of liver cirrhosis status post TIPS procedure recently at [facility]. 5. Gastroesophageal reflux disease maintained on protonix 6. Hepatic encephalopathy Plan: resume oral diuretics and avoid aggressive diuresis Treat hepatic encephalopathy Continue with midodrine Continue Sandostatin repeat labs in a.m. Accurate I's and O's Maintain salt restriction
[2023-08-15] MEDS: LACTULOSE 20 GM/30 ML CUP PO SCH (15:03)
[2023-08-15] MEDS: FUROSEMIDE 40 MG TAB PO SCH (15:04)
--- NOTE | 2023-08-15 22:36 | P.CONS ---
History of Present Illness - Reason for Consult Consult date: 08/15/23 - History of Present Illness Patient is a 72-year-old female with a past medical history significant for hypertension reflux, and variable immunodeficiency and cirrhosis of the liver in this patient who recently did have TIPS procedure at [facility], patient presenting to the hospital 4 days ago for evaluation of increasing shortness of breath and lower extremity edema that has been getting worse for a few days before presentation to the hospital patient denies high-grade fever or any chills and no fever have been recorded during this hospital stay patient is not tachycardic hypotensive or hypoxic and no need for supplemental oxygen patient did have a white count of 3.58 BUN and creatinine has been elevated liver enzymes are elevated urine was mildly positive patient did have abdominal pelvis CT ascites less than comparison study multiple pleural effusion volume overload status and splenomegaly patient also have an abdominal ultrasound small amount of ascites did have a chest x-ray last 1 has been this morning no change in the finding most consistent with CHF infectious was consulted today concerning for early sepsis patient is currently on empiric Rocephin patient as mentioned earlier denies having any fever or chills no headache or URI symptoms has been complaining of shortness of breath denies any chest pain or any cough has been complaining of more abdominal distention apparently more than admission to the hospital did have mild leaking pain some nausea but no vomiting and no diarrhea Past Medical History Past Medical History: GERD/Reflux, Hypertension, Liver Disease, Renal Disease Additional Past Medical History / Comment(s): immunodeficiency History of Any Multi-Drug Resistant Organisms: MRSA Year Discovered:: 08/23/2009 MDRO Source:: open wound bilateral arms healed Past Surgical History: Hysterectomy Additional Past Surgical History / Comment(s): common variable immune deficicency, multiple paracentesis last in may 2023, colonoscopy with polyp removal, TIPS Jan 2023 Past Anesthesia/Blood Transfusion Reactions: No Reported Reaction Additional Past Anesthesia/Blood Transfusion Reaction / Comm: Slow to wake up. Past Psychological History: Anxiety, Depression Smoking Status: Never smoker Past Alcohol Use History: None Reported Additional Past Alcohol Use History / Comment(s): She denies any alcohol use, marijuana or illicit drug use. She is and lives at home with her . She retired in 2017 from [employer]. Past Drug Use History: None Reported - Past Family History Father Additional Family Medical History / Comment(s): Patient's father at age 92 from CVA. He also had a degenerative muscle disorder. Mother Additional Family Medical History / Comment(s): Mother is alive at age 90 with no major medical problems. Brother(s) Additional Family Medical History / Comment(s): Patient is a total of 4 siblings with no major medical problems. Patient has one daughter with no major medical problems. Medications and Allergies Home Medications Medication Instructions Recorded Confirmed Type ALPRAZolam [Xanax] 1 mg PO HS 08/29/19 08/12/23 History traMADol HCL 50 mg PO BID PRN 08/29/19 08/12/23 History Ergocalciferol (Vitamin D2) 1,250 mcg PO WE 08/29/21 08/12/23 History [Drisdol (50,000 Iu)] Citalopram Hydrobromide [CeleXA] 10 mg PO DIRECTED 08/12/23 08/12/23 History Immun Glob G(IgG)/Pro/Iga 0-50 1 dose IV TH 08/12/23 08/12/23 History [Hizentra 10 Gram/50 ml Syringe] Allergies Allergy/AdvReac Type Severity Reaction Status Date / Time sulfamethoxazole Allergy Unknown, Verified 08/12/23 18:40 [From Bactrim] family allergy trimethoprim [From Bactrim] Allergy Unknown, Verified 08/12/23 18:40 family allergy spironolactone AdvReac Unknown Rash/Hives Verified 08/13/23 10:34 [From Aldactone] Physical Exam Vitals: Vital Signs Temp Pulse Resp BP Pulse Ox 08/15/23 12:57 97.6 F 62 16 129/59 96 08/15/23 08:20 67 16 08/15/23 07:44 97.7 F 67 16 126/61 92 L 08/15/23 02:00 98.6 F 64 16 125/70 91 L Intake and Output 08/15/23 08/15/23 08/15/23 06:59 14:59 22:59 Intake Total 480 Output Total 900 Balance -900 480 Intake: Oral 480 Output: Urine 900 Other: Voiding Method Indwelling Catheter Weight 36.2 kg 36.2 kg Results CBC & Chem 7: 08/15/23 04:34 08/15/23 04:34 Labs: Abnormal Lab Results - Last 24 Hours (Table) 08/15/23 08/15/23 08/15/23 Range/Units 04:34 04:34 04:34 WBC 3.58 L (4.50-10.00) X 10*3/uL RBC 3.32 L (4.10-5.20) X 10*6/uL Hgb 9.3 L (12.0-15.0) g/dL Hct 28.5 L (37.2-46.3) % RDW 16.6 H (11.5-14.5) % Plt Count 43 L (140-440) X 10*3/uL Lymphocytes # 0.70 L (0.90-5.00) X 10*3/uL Eosinophils # 0.43 H (0.04-0.35) X 10*3/uL BUN 45.2 H (9.0-27.0) mg/dL Creatinine 3.3 H (0.6-1.5) mg/dL Est GFR (CKD-EPI) 14 L (>=60) Calcium 8.4 L (8.7-10.3) mg/dL AST 69 H (13-35) U/L ALT 58 H (8-44) U/L Alkaline Phosphatase 208 H (41-126) U/L Ammonia 141 H (<30) umol/L Total Protein 4.9 L (6.2-8.2) g/dL Albumin 3.3 L (3.8-4.9) g/dL Assessment and Plan Plan: 1patient presented to hospital with abdominal distention lower extremity swelling and shortness of breath likely concerning for fluid overload in this patient who did have a history of cirrhosis of the liver and recently did have TIPS procedure at the [facility] she did have mildly positive UA however with more abdominal symptoms of distention some discomfort underlying SBP not entirely excluded 2-patient benefit from repeat ultrasound and if any worsening ascites for paracentesis and the fluid should be sent for cell count Gram stain and culture 3-check inflammatory markers 4-continue with empiric Rocephin We will follow on clinical condition and cultures to further adjust medication if needed Thank you for this consultation we will follow the patient along with you Dictation was produced using [employer] dictation software. please excuse any grammatical, word or spelling errors. Time with Patient: Greater than 30
--- NOTE | 2023-08-16 00:32 | PN ---
PROGRESS NOTE DATE OF SERVICE: 08/15/2023 SUBJECTIVE: This is a 72-year-old woman, who was admitted with multiple complex medical issues including shortness of breath and acute on chronic kidney failure, also had elevated ammonia. The patient is very mildly confused. No chest pain. No palpitations. No fever. Chest x-ray showed fluid overload. Creatinine is slightly worsened today. Dr. Washburn is following the patient closely. I discussed with Cathryn, the patient's daughter over the phone at length also. PAST MEDICAL HISTORY: Reviewed. REVIEW OF SYSTEMS: A 14-point review is negative except as mentioned earlier. CURRENT MEDICATIONS: Reviewed include Lasix p.o. PHYSICAL EXAMINATION: VITAL SIGNS: Pulse is 67, blood pressure 126/61, respirations 16. HEENT: Conjunctivae normal. NECK: No JVD. CARDIOVASCULAR: S1, S2. RESPIRATIONS: A few scattered rhonchi and crackles. ABDOMEN: Soft. LEGS: Edema. NERVOUS: No focal deficits. LABORATORY DATA: Creatinine 2.3. GFR is 40. Rest of the labs are noted. ASSESSMENT: 1. Shortness of breath, possibly congestive heart failure acute exacerbation, acute on chronic diastolic dysfunction. 2. Acute on chronic kidney failure, stage 3, slowly worsening. 3. Cirrhosis of liver with minimal ascites. 4. Hyperammonemia and early hepatic encephalopathy. 5. Mild pancytopenia secondary to cirrhosis of liver. 6. Common variable immunodeficiency, on IVIG. 7. Hypertension. 8. History of methicillin-resistant Staphylococcus aureus. 9. Anxiety and depression: RECOMMENDATIONS: Recommend to continue current management and continue symptomatic treatment. Otherwise, at this time, I would recommend lactulose. Closely follow. Discussed with the daughter as mentioned earlier. I would also recommend cultures and add empiric antibiotics also. Guarded prognosis because of multiple complex medical issues and further recommendations to follow. The patient had a previous history of hepatic encephalopathy. Infectious Disease evaluation. MMODL / IJN: [id number] /
--- NOTE | 2023-08-16 07:28 | XR ---
EXAMINATION TYPE: XR chest 1V portable DATE OF EXAM: 08/16/2023 COMPARISON: 08/15/2023 HISTORY: Follow-up CHF TECHNIQUE: Single frontal view of the chest is obtained. FINDINGS: There is no change in the pulmonary vascular congestion, interstitial edema and small right pleural e ffusion and right lower lobe opacity. There is no pneumothorax. The heart size is normal for the technique. The osseous structures are inta ct. IMPRESSION: Findings most consistent with CHF which is stable compared to previous
[2023-08-16 09:27] LABS: ALT 49 U/L (8-44); AST 56 U/L (13-35); Albumin 2.9 g/dL (3.8-4.9); Albumin/Globulin Ratio 1.93 Ratio (1.60-3.17); Alkaline Phosphatase 190 U/L (41-126); BUN/Creat Ratio 14.81 Ratio (12.00-20.00); Blood Urea Nitrogen 45.9 mg/dL (9.0-27.0); Calcium 8.3 mg/dL (8.7-10.3); Carbon Dioxide 23.5 mmol/L (21.6-31.8); Chloride 108 mmol/L (96-109); Globulin 1.5 g/dL (1.6-3.3); Glucose 105 mg/dL (70-110); Potassium 3.6 mmol/L (3.5-5.5); Sodium 144 mmol/L (135-145); Total Bilirubin 1.4 mg/dL (0.3-1.2); Total Protein 4.4 g/dL (6.2-8.2)
[2023-08-16 11:17] LABS: Basophils # (A) 0.02 X 10*3/uL (0.00-0.10); Basophils % (A) 0.7 %; Eosinophils # (A) 0.41 X 10*3/uL (0.04-0.35); Eosinophils % (A) 14.1 %; HGB 9.1 g/dL (12.0-15.0); Lymphocytes # (A) 0.58 X 10*3/uL (0.90-5.00); Lymphocytes % (A) 19.9 %; MCHC 32.5 g/dL (32.0-37.0); MCV 86.2 FL (80.0-97.0); Mean Platelet Volume 9.3 FL (9.5-12.2); Monocytes # (A) 0.32 X 10*3/uL (0.20-1.00); NRBC Per 100 WBC 0 X 10*3/uL (0.00-0.01); Neutrophils # (A) 1.57 X 10*3/uL (1.80-7.70); Platelet Count 43 X 10*3/uL (140-440); RBC 3.25 X 10*6/uL (4.10-5.20); RDW 16.7 % (11.5-14.5); WBC 2.91 X 10*3/uL (4.50-10.00)
[2023-08-16 11:23] LABS: Glucose,Whole Blood 113 mg/dL (70-110)
[2023-08-16] MEDS: methylPREDNISolone SOD SUCCI 40 MG/ML 1 ML VIAL IV SCH (11:54)
[2023-08-16] MEDS: diphenhydrAMINE 50 MG/ML 1 ML VIAL IVP SCH (11:54)
[2023-08-16] MEDS: FUROSEMIDE 10 MG/ML 4 ML VIAL IV STA (12:55)
[2023-08-16 17:40] LABS: Glucose,Whole Blood 142 mg/dL (70-110)
--- NOTE | 2023-08-16 18:02 | P.PN ---
Subjective patient is seen for follow-up for chronic kidney disease and acute kidney injury. Underlying CK D stage IV being followed at [facility] with baseline cr eatinine around 2 mg/dL. Patient is admitted to the hospital with complaints of increased leg swelling and shortness of breath. patient was maintained on diuretics but these were held yesterday as creatinine had increased to 3.3. Urine output noted to be at 900 ML for 24 hours. Mentation improved with lactulose and with treatment for hepatic encephalopathy. Renal status discussed with daughter Cathryn yesterday. There is concern for rash from oral Lasix. Patient states that she can tolerate IV Lasix better. There is concern for possible sulfa allergy and therefore we will try to obtain ethacrynic acid. No complaints of shortness of breath today. Objective - Vital Signs Vital signs: Vital Signs Temp 97.5 F L 08/16/23 14:21 Pulse 64 08/16/23 14:21 Resp 20 08/16/23 14:21 BP 143/51 08/16/23 14:21 Pulse Ox 95 08/16/23 14:21 FiO2 Intake & Output 08/15/23 08/16/23 08/16/23 18:59 06:59 18:59 Intake Total 480 270 Output Total 600 600 Balance -120 -330 Weight 36.2 kg 48 kg Intake: Oral 480 270 Output: Urine 600 600 Other: Voiding Method Indwelling Catheter Indwelling Catheter Indwelling Catheter # Bowel Movements 1 1 - Exam patient is awake, comfortable, no acute distress Asterixis not noted today Examination of the heart S1 and S2 Examination of the lungs bilateral breath sounds are heard, decreased breath sounds at the bases Abdomen is distended soft nontender. Ascites noted. Examination of lower extremities shows edema 3+ bilaterally with erythema of the skin noted bilaterally [employer] exam grossly intact - Labs CBC & Chem 7: 08/16/23 06:13 08/16/23 06:13 Labs: Abnormal Lab Results - Last 24 Hours (Table) 08/16/23 08/16/23 08/16/23 Range/Units 06:13 06:13 06:13 WBC 2.91 L (4.50-10.00) X 10*3/uL RBC 3.25 L (4.10-5.20) X 10*6/uL Hgb 9.1 L (12.0-15.0) g/dL Hct 28.0 L (37.2-46.3) % RDW 16.7 H (11.5-14.5) % Plt Count 43 L (140-440) X 10*3/uL MPV 9.3 L (9.5-12.2) FL Neutrophils # 1.57 L (1.80-7.70) X 10*3/uL Lymphocytes # 0.58 L (0.90-5.00) X 10*3/uL Eosinophils # 0.41 H (0.04-0.35) X 10*3/uL Immature Plt Fraction 1.0 L (1.1-6.1) % Anion Gap 12.50 H (4.00-12.00) mmol/L BUN 45.9 H (9.0-27.0) mg/dL Creatinine 3.1 H (0.6-1.5) mg/dL Est GFR (CKD-EPI) 16 L (>=60) POC Glucose (mg/dL) (70-110) mg/dL Calcium 8.3 L (8.7-10.3) mg/dL Total Bilirubin 1.4 H (0.3-1.2) mg/dL AST 56 H (13-35) U/L ALT 49 H (8-44) U/L Alkaline Phosphatase 190 H (41-126) U/L Ammonia 56 H (<30) umol/L Total Protein 4.4 L (6.2-8.2) g/dL Albumin 2.9 L (3.8-4.9) g/dL Globulin 1.5 L (1.6-3.3) g/dL 08/16/23 08/16/23 Range/Units 11:19 17:39 WBC (4.50-10.00) X 10*3/uL RBC (4.10-5.20) X 10*6/uL Hgb (12.0-15.0) g/dL Hct (37.2-46.3) % RDW (11.5-14.5) % Plt Count (140-440) X 10*3/uL MPV (9.5-12.2) FL Neutrophils # (1.80-7.70) X 10*3/uL Lymphocytes # (0.90-5.00) X 10*3/uL Eosinophils # (0.04-0.35) X 10*3/uL Immature Plt Fraction (1.1-6.1) % Anion Gap (4.00-12.00) mmol/L BUN (9.0-27.0) mg/dL Creatinine (0.6-1.5) mg/dL Est GFR (CKD-EPI) (>=60) POC Glucose (mg/dL) 113 H 142 H (70-110) mg/dL Calcium (8.7-10.3) mg/dL Total Bilirubin (0.3-1.2) mg/dL AST (13-35) U/L ALT (8-44) U/L Alkaline Phosphatase (41-126) U/L Ammonia (<30) umol/L Total Protein (6.2-8.2) g/dL Albumin (3.8-4.9) g/dL Globulin (1.6-3.3) g/dL Assessment and Plan Assessment: 1. Chronic kidney disease NKF stage IV with baseline creatinine around 2 mg/dL. Being followed at [facility]. 2. Acute kidney injury, most likely ATN. Rule out hepatorenal syndrome. patient is not oliguric. Diuretics has been decreased. Repeat chest x-ray does show pulmonary vascular congestion. 3. Volume overload with mostly lower extremity edema and chest x-ray from today did show pulmonary vascular congestion. 4. History of liver cirrhosis status post TIPS procedure recently at [facility]. 5. Gastroesophageal reflux disease maintained on protonix 6. Hepatic encephalopathy, improved 7. Possible sulfa allergy and intolerance to Lasix. We will try to obtain ethacrynic acid. Plan: Hold Lasix and obtain ethacrynic acid. Continue with lactulose Continue with midodrine Continue Sandostatin repeat labs in a.m. Accurate I's and O's Maintain salt restriction
[2023-08-16 21:06] LABS: Glucose,Whole Blood 176 mg/dL (70-110)
--- NOTE | 2023-08-17 04:20 | PN ---
PROGRESS NOTE DATE OF SERVICE: 08/16/2023 SUBJECTIVE: This is a 72-year-old woman who was admitted with multiple medical problems including shortness of breath and chronic kidney failure, also had history of cirrhosis liver. The patient also had hyperammonemia. The creatinine is slightly better at 3.1 today. Nephrology is following the patient closely, and the patient has urine output 600 mL. The cultures are negative so far. The chest x-ray done today which I reviewed personally showed by me showed bilateral lower lobe lesions, possibly fluid overload. No chest pain, no palpitation. PAST MEDICAL HISTORY: Reviewed. REVIEW OF SYSTEMS: A 14-point review is negative except as mentioned earlier. CURRENT MEDICATIONS: Reviewed, Rocephin p.r.n., rest of medications noted. OBJECTIVE: VITAL SIGNS: Pulse 68, blood pressure 130/70, respirations 16. CHEST: Scattered rhonchi and crackles. ABDOMEN: Soft NERVOUS SYSTEM: Nonfocal. LABORATORY DATA: WBC 2.1, hemoglobin 9.1, platelets 43. Rest of the labs noted. ASSESSMENT: 1. Shortness of breath, possible CHF acute exacerbation with acute on chronic diastolic dysfunction. 2. Acute on chronic kidney disease, stage III, slowly worsening. 3. Cirrhosis liver with minimal ascites and status post TIPS procedure. 4. Hyperammonemia and early hepatic encephalopathy. 5. Mild pancytopenia secondary to cirrhosis liver. 6. Common variable immunodeficiency, on IVIG. 7. Hypertension. 8. History of MRSA. 9. Anxiety, depression. RECOMMENDATIONS AND DISCUSSION: Recommended to continue current management, continue symptomatic treatment. Continue with empiric antibiotics. Repeat labs tomorrow. Follow creatinine closely. Prognosis is extremely guarded because of multiple complex medical issues and further recommendations to follow. MMODL / IJN: [id number] /
[2023-08-17 07:12] LABS: Glucose,Whole Blood 117 mg/dL (70-110)
--- NOTE | 2023-08-17 08:20 | P.PN ---
Subjective Patient is seen in follow-up for acute kidney injury on chronic kidney disease. Currently on IV Lasix. Nonoliguric. Denies chest pain or shortness of breath. Oral intake fair. Vital signs are stable. General: No acute distress. HEENT: Head exam is unremarkable. LUNGS: No audible rhonchi or wheezes. HEART: Rate and Rhythm are regular. ABDOMEN: Nontender. EXTREMITITES: Trace edema. Objective - Vital Signs Vital signs: Vital Signs Temp 97.8 F 08/17/23 07:10 Pulse 62 08/17/23 07:10 Resp 20 08/17/23 07:10 BP 123/56 08/17/23 07:10 Pulse Ox 90 L 08/17/23 07:10 FiO2 Intake & Output 08/16/23 08/17/23 08/17/23 18:59 06:59 18:59 Intake Total 470 Output Total 1000 330 Balance -1000 140 Weight 27 kg Intake: Intake, IV Titration 50 Amount ceFAZolin 2 gm In Sodium 50 Chloride 0.9% 50 ml @ 100 mls/hr IVPB ONCE ONE Rx# :[id number] Oral 420 Output: Urine 1000 300 Stool 30 Other: Voiding Method Indwelling Catheter Indwelling Catheter # Bowel Movements 1 3 - Labs CBC & Chem 7: 08/16/23 06:13 08/16/23 06:13 Labs: Abnormal Lab Results - Last 24 Hours (Table) 08/16/23 08/16/23 08/16/23 Range/Units 06:13 06:13 11:19 WBC 2.91 L (4.50-10.00) X 10*3/uL RBC 3.25 L (4.10-5.20) X 10*6/uL Hgb 9.1 L (12.0-15.0) g/dL Hct 28.0 L (37.2-46.3) % RDW 16.7 H (11.5-14.5) % Plt Count 43 L (140-440) X 10*3/uL MPV 9.3 L (9.5-12.2) FL Neutrophils # 1.57 L (1.80-7.70) X 10*3/uL Lymphocytes # 0.58 L (0.90-5.00) X 10*3/uL Eosinophils # 0.41 H (0.04-0.35) X 10*3/uL Immature Plt Fraction 1.0 L (1.1-6.1) % Anion Gap 12.50 H (4.00-12.00) mmol/L BUN 45.9 H (9.0-27.0) mg/dL Creatinine 3.1 H (0.6-1.5) mg/dL Est GFR (CKD-EPI) 16 L (>=60) POC Glucose (mg/dL) 113 H (70-110) mg/dL Calcium 8.3 L (8.7-10.3) mg/dL Total Bilirubin 1.4 H (0.3-1.2) mg/dL AST 56 H (13-35) U/L ALT 49 H (8-44) U/L Alkaline Phosphatase 190 H (41-126) U/L Total Protein 4.4 L (6.2-8.2) g/dL Albumin 2.9 L (3.8-4.9) g/dL Globulin 1.5 L (1.6-3.3) g/dL 08/16/23 08/16/23 08/17/23 Range/Units 17:39 21:03 07:10 WBC (4.50-10.00) X 10*3/uL RBC (4.10-5.20) X 10*6/uL Hgb (12.0-15.0) g/dL Hct (37.2-46.3) % RDW (11.5-14.5) % Plt Count (140-440) X 10*3/uL MPV (9.5-12.2) FL Neutrophils # (1.80-7.70) X 10*3/uL Lymphocytes # (0.90-5.00) X 10*3/uL Eosinophils # (0.04-0.35) X 10*3/uL Immature Plt Fraction (1.1-6.1) % Anion Gap (4.00-12.00) mmol/L BUN (9.0-27.0) mg/dL Creatinine (0.6-1.5) mg/dL Est GFR (CKD-EPI) (>=60) POC Glucose (mg/dL) 142 H 176 H 117 H (70-110) mg/dL Calcium (8.7-10.3) mg/dL Total Bilirubin (0.3-1.2) mg/dL AST (13-35) U/L ALT (8-44) U/L Alkaline Phosphatase (41-126) U/L Total Protein (6.2-8.2) g/dL Albumin (3.8-4.9) g/dL Globulin (1.6-3.3) g/dL Microbiology - Last 24 Hours (Table) 08/15/23 16:53 Urine Culture - Preliminary Urine,Catheterized Gram Neg Bacilli 08/15/23 15:55 Blood Culture - Preliminary Blood Assessment and Plan Plan: Assessment: 1. Acute kidney injury secondary to ATN. Concern for hepatorenal syndrome. No hydronephrosis noted on CT. No proteinuria on UA. Creatinine 3.1 yesterday. 2. Chronic kidney disease stage IV with baseline creatinine near 2. Patient follows at [facility]. 3. Volume overload. Improving with diuresis. 4. History of liver cirrhosis status post TIPS procedure at [facility]. 5. Sulfa allergy. Plan: Ethacrynic acid to be started today. Maintain midodrine. Hold for systolic blood pressure greater than 115. Maintain low-salt diet and fluid restriction. Continue to monitor renal function and urine output.
[2023-08-17 11:27] LABS: Anisocytosis Slight; Basophils % (A) 1 %; Eosinophils # (A) 0.5 k/uL (0-0.7); Eosinophils % (A) 12 %; HCT 29.6 % (34.0-46.0); HGB 9.6 gm/dL (11.4-16.0); Hypochromasia Slight; Lymphocytes # (A) 0.5 k/uL (1.0-4.8); Lymphocytes % (A) 14 %; MCH 28.3 pg (25.0-35.0); MCHC 32.6 g/dL (31.0-37.0); MCV 86.8 fL (80.0-100.0); Mean Platelet Volume 9.1; Monocytes # (A) 0.3 k/uL (0-1.0); Monocytes % (A) 8 %; Neutrophils # (A) 2.3 k/uL (1.3-7.7); Neutrophils % (A) 63 %; Poikilocytosis Slight; RBC 3.41 m/uL (3.80-5.40); RDW 17.6 % (11.5-15.5); WBC 3.7 k/uL (3.8-10.6)
[2023-08-17 11:28] LABS: Platelet Count 37 k/uL (150-450)
[2023-08-17 12:28] LABS: Glucose,Whole Blood 93 mg/dL (70-110)
[2023-08-17] MEDS: OCTREOTIDE 100 MCG/ML INJ SQ SCH (12:46)
[2023-08-17 15:55] LABS: ALT 51 U/L (8-44); AST 50 U/L (13-35); Albumin 3.2 g/dL (3.8-4.9); Albumin/Globulin Ratio 2.13 Ratio (1.60-3.17); Alkaline Phosphatase 194 U/L (41-126); BUN/Creat Ratio 14.97 Ratio (12.00-20.00); Blood Urea Nitrogen 47.9 mg/dL (9.0-27.0); Calcium 8.6 mg/dL (8.7-10.3); Carbon Dioxide 24.9 mmol/L (21.6-31.8); Chloride 109 mmol/L (96-109); Globulin 1.5 g/dL (1.6-3.3); Glucose 119 mg/dL (70-110); Potassium 3.8 mmol/L (3.5-5.5); Sodium 147 mmol/L (135-145); Total Bilirubin 1.2 mg/dL (0.3-1.2); Total Protein 4.7 g/dL (6.2-8.2)
[2023-08-17] MEDS: ETHACRYNIC ACID 25 MG PO SCH (16:22)
[2023-08-17] MEDS: DEXTROSE 5% IN WATER 1,000 ML IV SCH (16:22)
[2023-08-17 17:38] LABS: Glucose,Whole Blood 189 mg/dL (70-110)
[2023-08-17 20:30] LABS: Glucose,Whole Blood 171 mg/dL (70-110)
--- NOTE | 2023-08-17 22:13 | PN ---
PROGRESS NOTE DATE OF SERVICE: 08/17/2023 SUBJECTIVE: This is a 72-year-old woman, who was admitted with multiple complex medical issues including renal failure, had history of hepatic disease also. The most recent creatinine today is not available, it was 3.1 yesterday. Nephrology is following the patient closely. Chest x-ray showed some fluid overload also. The patient is nonoliguric and the patient is on IV Lasix. PAST MEDICAL HISTORY: Reviewed. REVIEW OF SYSTEMS: A 14-point review of systems negative except as mentioned earlier. CURRENT MEDICATIONS: Reviewed include cefazolin. Dose and rest of medications noted. PHYSICAL EXAMINATION: VITAL SIGNS: Pulse is 62, blood pressure 123/53, respirations 20. HEENT: Conjunctivae normal. NECK: No JVD. CARDIOVASCULAR: S1, S2. RESPIRATIONS: Breath sounds diminished at the bases. A few scattered rhonchi. ABDOMEN: Soft, nontender. LEGS: Minimal edema. LABORATORY DATA: Hemoglobin 9.6. ASSESSMENT: 1. Shortness of breath, possible congestive heart failure acute exacerbation, acute on chronic diastolic dysfunction. 2. Acute on chronic kidney disease, stage III, rather stable at this time. 3. Urinary tract infection, gram-negative bacilli. 4. Cirrhosis of liver with minimal ascites and status post TIPS procedure elsewhere previously. 5. Hyperammonemia and early hepatic encephalopathy. 6. Mild pancytopenia secondary to cirrhosis of liver. 7. Common variable immunodeficiency, on IVIG. 8. Hypertension. 9. History of methicillin-resistant Staphylococcus aureus.. 10.Anxiety and depression. RECOMMENDATIONS: Recommend to continue current management and continue symptomatic treatment. Continue with antibiotics. Closely follow with multiple consultants. Prognosis extremely guarded. We will monitor creatinine closely. Urine culture showed gram-negative bacilli. MMODL / IJN: [id number] /
[2023-08-18 07:01] LABS: Glucose,Whole Blood 130 mg/dL (70-110)
[2023-08-18 09:30] LABS: African American GFR (CKD) 17 (>60 ml/min/1.73 sqM); Anion Gap 7 mmol/L; Blood Urea Nitrogen 53 mg/dL (7-17); Calcium 8.1 mg/dL (8.4-10.2); Carbon Dioxide 28 mmol/L (22-30); Chloride 107 mmol/L (98-107); Glucose 128 mg/dL (74-99); Non-African American GFR(CKD) 15 (>60 ml/min/1.73 sqM); Potassium 3.5 mmol/L (3.5-5.1); Sodium 142 mmol/L (137-145)
--- NOTE | 2023-08-18 10:25 | P.PN ---
Subjective Patient is seen in follow-up for acute kidney injury on chronic kidney disease. Currently on ethacrynic acid. Nonoliguric. Denies chest pain or shortness of breath. Oral intake fair. Renal function stable. Vital signs are stable. General: No acute distress. HEENT: Head exam is unremarkable. LUNGS: No audible rhonchi or wheezes. HEART: Rate and Rhythm are regular. ABDOMEN: Nontender. EXTREMITITES: Trace edema. Objective - Vital Signs Vital signs: Vital Signs Temp 97.9 F 08/18/23 06:59 Pulse 58 L 08/18/23 06:59 Resp 17 08/18/23 06:59 BP 135/51 08/18/23 06:59 Pulse Ox 94 L 08/18/23 06:59 FiO2 Intake & Output 08/17/23 08/18/23 08/18/23 18:59 06:59 18:59 Intake Total 240 Output Total 775 700 Balance -775 -460 Weight 27.5 kg Intake: Oral 240 Output: Urine 775 700 Other: Voiding Method Indwelling Catheter Indwelling Catheter Indwelling Catheter # Voids 1 # Bowel Movements 1 - Labs CBC & Chem 7: 08/17/23 10:53 08/18/23 08:34 Labs: Abnormal Lab Results - Last 24 Hours (Table) 08/17/23 08/17/23 08/17/23 Range/Units 10:53 10:53 10:53 WBC 3.7 L (3.8-10.6) k/uL RBC 3.41 L (3.80-5.40) m/uL Hgb 9.6 L (11.4-16.0) gm/dL Hct 29.6 L (34.0-46.0) % RDW 17.6 H (11.5-15.5) % Plt Count 37 L (150-450) k/uL Lymphocytes # 0.5 L (1.0-4.8) k/uL Sodium 147 H (135-145) mmol/L Anion Gap 13.10 H (4.00-12.00) mmol/L BUN 47.9 H (9.0-27.0) mg/dL Creatinine 3.2 H (0.6-1.5) mg/dL Est GFR (CKD-EPI) 15 L (>=60) Glucose 119 H (70-110) mg/dL POC Glucose (mg/dL) (70-110) mg/dL Calcium 8.6 L (8.7-10.3) mg/dL AST 50 H (13-35) U/L ALT 51 H (8-44) U/L Alkaline Phosphatase 194 H (41-126) U/L Ammonia 31 H (<30) umol/L Total Protein 4.7 L (6.2-8.2) g/dL Albumin 3.2 L (3.8-4.9) g/dL Globulin 1.5 L (1.6-3.3) g/dL 08/17/23 08/17/23 08/18/23 Range/Units 17:36 20:25 07:00 WBC (3.8-10.6) k/uL RBC (3.80-5.40) m/uL Hgb (11.4-16.0) gm/dL Hct (34.0-46.0) % RDW (11.5-15.5) % Plt Count (150-450) k/uL Lymphocytes # (1.0-4.8) k/uL Sodium (135-145) mmol/L Anion Gap (4.00-12.00) mmol/L BUN (9.0-27.0) mg/dL Creatinine (0.6-1.5) mg/dL Est GFR (CKD-EPI) (>=60) Glucose (70-110) mg/dL POC Glucose (mg/dL) 189 H 171 H 130 H (70-110) mg/dL Calcium (8.7-10.3) mg/dL AST (13-35) U/L ALT (8-44) U/L Alkaline Phosphatase (41-126) U/L Ammonia (<30) umol/L Total Protein (6.2-8.2) g/dL Albumin (3.8-4.9) g/dL Globulin (1.6-3.3) g/dL 08/18/23 Range/Units 08:34 WBC (3.8-10.6) k/uL RBC (3.80-5.40) m/uL Hgb (11.4-16.0) gm/dL Hct (34.0-46.0) % RDW (11.5-15.5) % Plt Count (150-450) k/uL Lymphocytes # (1.0-4.8) k/uL Sodium (135-145) mmol/L Anion Gap (4.00-12.00) mmol/L BUN 53 H (9.0-27.0) mg/dL Creatinine 3.03 H (0.6-1.5) mg/dL Est GFR (CKD-EPI) (>=60) Glucose 128 H (70-110) mg/dL POC Glucose (mg/dL) (70-110) mg/dL Calcium 8.1 L (8.7-10.3) mg/dL AST (13-35) U/L ALT (8-44) U/L Alkaline Phosphatase (41-126) U/L Ammonia (<30) umol/L Total Protein (6.2-8.2) g/dL Albumin (3.8-4.9) g/dL Globulin (1.6-3.3) g/dL Microbiology - Last 24 Hours (Table) 08/15/23 15:55 Blood Culture - Preliminary Blood 08/15/23 16:53 Urine Culture - Final Urine,Catheterized Klebsiella oxytoca Klebsiella pneumoniae Assessment and Plan Plan: Assessment: 1. Acute kidney injury secondary to ATN. Concern for hepatorenal syndrome. No hydronephrosis noted on CT. No proteinuria on UA. Creatinine stable at 3.03 today. 2. Chronic kidney disease stage IV with baseline creatinine near 2. Patient follows at [facility]. 3. Volume overload. Improving with diuresis. 4. History of liver cirrhosis status post TIPS procedure at [facility]. 5. Sulfa allergy. 6. Hypokalemia from diuresis. 7. Hypernatremia from lack of oral water intake. Improved with D5W. Plan: Hep-Lock IV fluids. Maintain ethacrynic acid. Maintain midodrine. Hold for systolic blood pressure greater than 115. Maintain low-salt diet and fluid restriction. Replace potassium. Continue to monitor renal function and urine output.
[2023-08-18] MEDS: POTASSIUM CHLORIDE ER 20 MEQ TAB.ER PO STA (11:11)
[2023-08-18 12:07] LABS: Glucose,Whole Blood 97 mg/dL (70-110)
--- NOTE | 2023-08-18 15:19 | P.PN ---
Subjective Progress Note Date: 08/16/23 Principal diagnosis: Reason for follow-up visit possible UTI/lower extremity cellulitis Patient is a 72-year-old female with a past medical history significant for hypertension reflux, and variable immunodeficiency and cirrhosis of the liver in this patient who recently did have TIPS procedure at [facility] presented to hospital with increasing shortness of breath lower extremity swelling ultrasound abdomen did not show significant ascites. On today's evaluation that is 08/16/2023, patient has been afebrile, patient is breathing comfortably and is currently on room air, patient denies having any significant cough no chest pain patient denies nausea vomiting or diarrhea and no abdominal pain, still have significant swelling of bilateral lower extremity. Patient white count is 2.91, creatinine 3.1 Objective - Vital Signs Vital signs: Vital Signs Temp 97.5 F L 08/16/23 14:21 Pulse 64 08/16/23 14:21 Resp 20 08/16/23 14:21 BP 143/51 08/16/23 14:21 Pulse Ox 95 08/16/23 14:21 FiO2 Intake & Output 08/15/23 08/16/23 08/16/23 18:59 06:59 18:59 Intake Total 480 270 Output Total 600 600 Balance -120 -330 Weight 36.2 kg 48 kg Intake: Oral 480 270 Output: Urine 600 600 Other: Voiding Method Indwelling Catheter Indwelling Catheter Indwelling Catheter # Bowel Movements 1 1 - Exam GENERAL DESCRIPTION: An elderly female lying in bed in no distress RESPIRATORY SYSTEM: Unlabored breathing , decreased breath sounds at bases HEART: S1 S2 regular rate and rhythm , ABDOMEN: Soft , no tenderness EXTREMITIES: Diffuse swelling of bilateral lower extremity with some redness and warmth - Labs CBC & Chem 7: 08/17/23 10:53 08/18/23 08:34 Labs: Abnormal Lab Results - Last 24 Hours (Table) 08/16/23 08/16/23 08/16/23 Range/Units 06:13 06:13 06:13 WBC 2.91 L (4.50-10.00) X 10*3/uL RBC 3.25 L (4.10-5.20) X 10*6/uL Hgb 9.1 L (12.0-15.0) g/dL Hct 28.0 L (37.2-46.3) % RDW 16.7 H (11.5-14.5) % Plt Count 43 L (140-440) X 10*3/uL MPV 9.3 L (9.5-12.2) FL Neutrophils # 1.57 L (1.80-7.70) X 10*3/uL Lymphocytes # 0.58 L (0.90-5.00) X 10*3/uL Eosinophils # 0.41 H (0.04-0.35) X 10*3/uL Immature Plt Fraction 1.0 L (1.1-6.1) % Anion Gap 12.50 H (4.00-12.00) mmol/L BUN 45.9 H (9.0-27.0) mg/dL Creatinine 3.1 H (0.6-1.5) mg/dL Est GFR (CKD-EPI) 16 L (>=60) POC Glucose (mg/dL) (70-110) mg/dL Calcium 8.3 L (8.7-10.3) mg/dL Total Bilirubin 1.4 H (0.3-1.2) mg/dL AST 56 H (13-35) U/L ALT 49 H (8-44) U/L Alkaline Phosphatase 190 H (41-126) U/L Ammonia 56 H (<30) umol/L Total Protein 4.4 L (6.2-8.2) g/dL Albumin 2.9 L (3.8-4.9) g/dL Globulin 1.5 L (1.6-3.3) g/dL 08/16/23 Range/Units 11:19 WBC (4.50-10.00) X 10*3/uL RBC (4.10-5.20) X 10*6/uL Hgb (12.0-15.0) g/dL Hct (37.2-46.3) % RDW (11.5-14.5) % Plt Count (140-440) X 10*3/uL MPV (9.5-12.2) FL Neutrophils # (1.80-7.70) X 10*3/uL Lymphocytes # (0.90-5.00) X 10*3/uL Eosinophils # (0.04-0.35) X 10*3/uL Immature Plt Fraction (1.1-6.1) % Anion Gap (4.00-12.00) mmol/L BUN (9.0-27.0) mg/dL Creatinine (0.6-1.5) mg/dL Est GFR (CKD-EPI) (>=60) POC Glucose (mg/dL) 113 H (70-110) mg/dL Calcium (8.7-10.3) mg/dL Total Bilirubin (0.3-1.2) mg/dL AST (13-35) U/L ALT (8-44) U/L Alkaline Phosphatase (41-126) U/L Ammonia (<30) umol/L Total Protein (6.2-8.2) g/dL Albumin (3.8-4.9) g/dL Globulin (1.6-3.3) g/dL Assessment and Plan (1) Cellulitis of right leg Current Visit: Yes Status: Acute Code(s): L03.115 - CELLULITIS OF RIGHT LOWER LIMB SNOMED Code(s): 14079831125453779 (2) Urinary tract infection Current Visit: No Status: Acute Code(s): N39.0 - URINARY TRACT INFECTION, SITE NOT SPECIFIED SNOMED Code(s): 04263268 Plan: 1patient presented to hospital with abdominal distention lower extremity swelling and shortness of breath likely concerning for fluid overload in this patient who did have a history of cirrhosis of the liver and recently did have TIPS procedure at the [facility] she did have mildly positive UA however with more abdominal symptoms of distention some discomfort underlying SBP not entirely excluded 2-patient did have significant swelling redness right lower extremity likely concerning for cellulitis we will discontinue Rocephin and start the patient cefazolin is a clinical response Dictation was produced using [email or web address] dictation software. please excuse any grammatical, word or spelling errors. Time with Patient: Less than 30
--- NOTE | 2023-08-18 15:20 | P.PN ---
Subjective Progress Note Date: 08/17/23 Principal diagnosis: Reason for follow-up visit possible UTI/lower extremity cellulitis Patient is a 72-year-old female with a past medical history significant for hypertension reflux, and variable immunodeficiency and cirrhosis of the liver in this patient who recently did have TIPS procedure at [facility] presented to hospital with increasing shortness of breath lower extremity swelling ultrasound abdomen did not show significant ascites. On today's evaluation that is 08/17/2023,the patient denies any fever or any chills, patient is breathing comfortably on room air, the patient denies chest pain and no significant cough, patient denies abdominal pain, no nausea vomiting or diarrhea still has swelling to bilateral extremity but no pain. Patient white count is 3.7, creatinine 3.2 Objective - Vital Signs Vital signs: Vital Signs Temp 98 F 08/17/23 19:05 Pulse 64 08/17/23 19:05 Resp 16 08/17/23 19:05 BP 136/64 08/17/23 19:05 Pulse Ox 99 08/17/23 19:05 FiO2 Intake & Output 08/17/23 08/17/23 08/18/23 06:59 18:59 06:59 Intake Total 470 Output Total 330 775 Balance 140 -775 Weight 27 kg Intake: Intake, IV Titration 50 Amount ceFAZolin 2 gm In Sodium 50 Chloride 0.9% 50 ml @ 100 mls/hr IVPB ONCE ONE Rx# :[id number] Oral 420 Output: Urine 300 775 Stool 30 Other: Voiding Method Indwelling Catheter Indwelling Catheter Indwelling Catheter # Voids 1 # Bowel Movements 3 1 - Exam GENERAL DESCRIPTION: An elderly female lying in bed in no distress RESPIRATORY SYSTEM: Unlabored breathing , decreased breath sounds at bases HEART: S1 S2 regular rate and rhythm , ABDOMEN: Soft , no tenderness EXTREMITIES: Diffuse swelling of bilateral lower extremity with some redness and warmth - Labs CBC & Chem 7: 08/17/23 10:53 08/18/23 08:34 Labs: Abnormal Lab Results - Last 24 Hours (Table) 08/17/23 08/17/23 08/17/23 Range/Units 07:10 10:53 10:53 WBC 3.7 L (3.8-10.6) k/uL RBC 3.41 L (3.80-5.40) m/uL Hgb 9.6 L (11.4-16.0) gm/dL Hct 29.6 L (34.0-46.0) % RDW 17.6 H (11.5-15.5) % Plt Count 37 L (150-450) k/uL Lymphocytes # 0.5 L (1.0-4.8) k/uL Sodium (135-145) mmol/L Anion Gap (4.00-12.00) mmol/L BUN (9.0-27.0) mg/dL Creatinine (0.6-1.5) mg/dL Est GFR (CKD-EPI) (>=60) Glucose (70-110) mg/dL POC Glucose (mg/dL) 117 H (70-110) mg/dL Calcium (8.7-10.3) mg/dL AST (13-35) U/L ALT (8-44) U/L Alkaline Phosphatase (41-126) U/L Ammonia 31 H (<30) umol/L Total Protein (6.2-8.2) g/dL Albumin (3.8-4.9) g/dL Globulin (1.6-3.3) g/dL 08/17/23 08/17/23 08/17/23 Range/Units 10:53 17:36 20:25 WBC (3.8-10.6) k/uL RBC (3.80-5.40) m/uL Hgb (11.4-16.0) gm/dL Hct (34.0-46.0) % RDW (11.5-15.5) % Plt Count (150-450) k/uL Lymphocytes # (1.0-4.8) k/uL Sodium 147 H (135-145) mmol/L Anion Gap 13.10 H (4.00-12.00) mmol/L BUN 47.9 H (9.0-27.0) mg/dL Creatinine 3.2 H (0.6-1.5) mg/dL Est GFR (CKD-EPI) 15 L (>=60) Glucose 119 H (70-110) mg/dL POC Glucose (mg/dL) 189 H 171 H (70-110) mg/dL Calcium 8.6 L (8.7-10.3) mg/dL AST 50 H (13-35) U/L ALT 51 H (8-44) U/L Alkaline Phosphatase 194 H (41-126) U/L Ammonia (<30) umol/L Total Protein 4.7 L (6.2-8.2) g/dL Albumin 3.2 L (3.8-4.9) g/dL Globulin 1.5 L (1.6-3.3) g/dL Microbiology - Last 24 Hours (Table) 08/15/23 16:53 Urine Culture - Preliminary Urine,Catheterized Gram Neg Bacilli 08/15/23 15:55 Blood Culture - Preliminary Blood Assessment and Plan (1) Allergy to sulfa drugs Current Visit: Yes Status: Acute Code(s): Z88.2 - ALLERGY STATUS TO SULFONAMIDES SNOMED Code(s): 19678830 (2) Cellulitis of right leg Current Visit: Yes Status: Acute Code(s): L03.115 - CELLULITIS OF RIGHT LOWER LIMB SNOMED Code(s): 37459586795219944 (3) Urinary tract infection Current Visit: No Status: Acute Code(s): N39.0 - URINARY TRACT INFECTION, SITE NOT SPECIFIED SNOMED Code(s): 03917586 Plan: 1patient presented to hospital with abdominal distention lower extremity swelling and shortness of breath likely concerning for fluid overload in this patient who did have a history of cirrhosis of the liver and recently did have TIPS procedure at the [facility] she did have mildly positive UA however with more abdominal symptoms of distention some discomfort underlying SBP not entirely excluded 2-patient to continue with the cefazolin will benefit from Milo wrap to the leg to keep the swelling down and wait for the culture to finalize Dictation was produced using [employer] dictation software. please excuse any grammatical, word or spelling errors.
--- NOTE | 2023-08-18 15:21 | P.PN ---
Subjective Progress Note Date: 08/18/23 Principal diagnosis: Reason for follow-up visit possible UTI/lower extremity cellulitis Patient is a 72-year-old female with a past medical history significant for hypertension reflux, and variable immunodeficiency and cirrhosis of the liver in this patient who recently did have TIPS procedure at [facility] presented to hospital with increasing shortness of breath lower extremity swelling ultrasound abdomen did not show significant ascites. On today's evaluation that is 08/18/2023,the patient remains to be afebrile, patient is on room air not requiring supplemental oxygen and denies any shortness of breath no chest pain or cough.Patient denies having any nausea or vomiting, no abdominal pain and no diarrhea has been reported, patient did have a creatinine 3.03 urine is growing Klebsiella Objective - Vital Signs Vital signs: Vital Signs Temp 97.9 F 08/18/23 06:59 Pulse 58 L 08/18/23 06:59 Resp 17 08/18/23 06:59 BP 135/51 08/18/23 06:59 Pulse Ox 94 L 08/18/23 06:59 FiO2 Intake & Output 08/17/23 08/18/23 08/18/23 18:59 06:59 18:59 Intake Total 240 240 Output Total 775 700 Balance -775 -460 240 Weight 27.5 kg 73 kg Intake: Oral 240 240 Output: Urine 775 700 Other: Voiding Method Indwelling Catheter Indwelling Catheter Indwelling Catheter # Voids 1 # Bowel Movements 1 1 - Exam GENERAL DESCRIPTION: An elderly female lying in bed in no distress RESPIRATORY SYSTEM: Unlabored breathing , decreased breath sounds at bases HEART: S1 S2 regular rate and rhythm , ABDOMEN: Soft , no tenderness EXTREMITIES: Diffuse swelling of bilateral lower extremity with some redness and warmth - Labs CBC & Chem 7: 08/17/23 10:53 08/18/23 08:34 Labs: Abnormal Lab Results - Last 24 Hours (Table) 08/17/23 08/17/23 08/17/23 Range/Units 10:53 17:36 20:25 Sodium 147 H (135-145) mmol/L Anion Gap 13.10 H (4.00-12.00) mmol/L BUN 47.9 H (9.0-27.0) mg/dL Creatinine 3.2 H (0.6-1.5) mg/dL Est GFR (CKD-EPI) 15 L (>=60) Glucose 119 H (70-110) mg/dL POC Glucose (mg/dL) 189 H 171 H (70-110) mg/dL Calcium 8.6 L (8.7-10.3) mg/dL AST 50 H (13-35) U/L ALT 51 H (8-44) U/L Alkaline Phosphatase 194 H (41-126) U/L Total Protein 4.7 L (6.2-8.2) g/dL Albumin 3.2 L (3.8-4.9) g/dL Globulin 1.5 L (1.6-3.3) g/dL 08/18/23 08/18/23 Range/Units 07:00 08:34 Sodium (135-145) mmol/L Anion Gap (4.00-12.00) mmol/L BUN 53 H (9.0-27.0) mg/dL Creatinine 3.03 H (0.6-1.5) mg/dL Est GFR (CKD-EPI) (>=60) Glucose 128 H (70-110) mg/dL POC Glucose (mg/dL) 130 H (70-110) mg/dL Calcium 8.1 L (8.7-10.3) mg/dL AST (13-35) U/L ALT (8-44) U/L Alkaline Phosphatase (41-126) U/L Total Protein (6.2-8.2) g/dL Albumin (3.8-4.9) g/dL Globulin (1.6-3.3) g/dL Microbiology - Last 24 Hours (Table) 08/15/23 15:55 Blood Culture - Preliminary Blood 08/15/23 16:53 Urine Culture - Final Urine,Catheterized Klebsiella oxytoca Klebsiella pneumoniae Assessment and Plan (1) Allergy to sulfa drugs Current Visit: Yes Status: Acute Code(s): Z88.2 - ALLERGY STATUS TO SULFONAMIDES SNOMED Code(s): 04145941 (2) Cellulitis of right leg Current Visit: Yes Status: Acute Code(s): L03.115 - CELLULITIS OF RIGHT LOWER LIMB SNOMED Code(s): 60653490016252881 (3) Urinary tract infection Current Visit: No Status: Acute Code(s): N39.0 - URINARY TRACT INFECTION, SITE NOT SPECIFIED SNOMED Code(s): 32564070 Plan: 1patient presented to hospital with abdominal distention lower extremity swelling and shortness of breath likely concerning for fluid overload in this patient who did have a history of cirrhosis of the liver and recently did have TIPS procedure at the [facility] she did have mildly positive UA however with more abdominal symptoms of distention some discomfort underlying SBP not entirely excluded 2-patient urine is growing Klebsiella that is sensitive to cefazolin also with c omplaint of right lower extreme cellulitis 3-patient to to continue with the cefazolin will benefit from Milo wrap to the leg to keep the swelling down this was discussed with the nursing staff to apply it Dictation was produced using [email or web address] dictation software. please excuse any grammatical, word or spelling errors. Time with Patient: Less than 30
--- NOTE | 2023-08-18 23:15 | P.PN ---
Subjective This is a pleasant 72 years old female with past medical history of liver disease and cirrhosis. Presents with dyspnea and fluid overload secondary to decompensated liver cirrhosis. Patient has a known history of TIPS procedure Also patient was found to have acute urinary tract infection secondary to Klebsiella and right lower extremity cellulitis kept on cefazolin Patient looks improving slowly and gradually. Patient was on IV fluids which was discontinued, she was on D5W for mild hypernatremia. Creatinine is above baseline of 2.1 with chronic kidney disease stage IV, currently is elevated to 3.0 thought secondary to acute tubular necrosis secondary to hepatorenal syndrome. She was started on ethacrynic acid diuretic today, per [employer] Patient states that he is doing well He has Chávez catheter with good urine output Objective - Vital Signs Vital signs: Vital Signs Temp 97.9 F 08/18/23 06:59 Pulse 58 L 08/18/23 06:59 Resp 17 08/18/23 06:59 BP 135/51 08/18/23 06:59 Pulse Ox 94 L 08/18/23 06:59 FiO2 Intake & Output 08/17/23 08/18/23 08/18/23 18:59 06:59 18:59 Intake Total 240 240 Output Total 775 700 Balance -775 -460 240 Weight 27.5 kg 73 kg Intake: Oral 240 240 Output: Urine 775 700 Other: Voiding Method Indwelling Catheter Indwelling Catheter Indwelling Catheter # Voids 1 # Bowel Movements 1 1 - Exam GENERAL: The patient is alert and oriented x3, not in any acute distress. Well developed, well nourished. HEENT: Pupils are round and equally reacting to light. EOMI. No scleral icterus. No conjunctival pallor. Normocephalic, atraumatic. No pharyngeal erythema. No thyromegaly. CARDIOVASCULAR: S1 and S2 present. No murmurs, rubs, or gallops. PULMONARY: Chest is clear to auscultation, no wheezing , no crackles. ABDOMEN: Soft, nontender, nondistended, normoactive bowel sounds. No palpable organomegaly. MUSCULOSKELETAL: No joint swelling or deformity. -EXTREMITIES: No cyanosis, clubbing,. Bilateral pitting leg edema. NEUROLOGICAL: Gross neurological examination did not reveal any focal deficits. SKIN: No rashes. no petechiae. - Labs CBC & Chem 7: 08/17/23 10:53 08/18/23 08:34 Labs: Abnormal Lab Results - Last 24 Hours (Table) 08/17/23 08/17/23 08/17/23 Range/Units 10:53 17:36 20:25 Sodium 147 H (135-145) mmol/L Anion Gap 13.10 H (4.00-12.00) mmol/L BUN 47.9 H (9.0-27.0) mg/dL Creatinine 3.2 H (0.6-1.5) mg/dL Est GFR (CKD-EPI) 15 L (>=60) Glucose 119 H (70-110) mg/dL POC Glucose (mg/dL) 189 H 171 H (70-110) mg/dL Calcium 8.6 L (8.7-10.3) mg/dL AST 50 H (13-35) U/L ALT 51 H (8-44) U/L Alkaline Phosphatase 194 H (41-126) U/L Total Protein 4.7 L (6.2-8.2) g/dL Albumin 3.2 L (3.8-4.9) g/dL Globulin 1.5 L (1.6-3.3) g/dL 08/18/23 08/18/23 Range/Units 07:00 08:34 Sodium (135-145) mmol/L Anion Gap (4.00-12.00) mmol/L BUN 53 H (9.0-27.0) mg/dL Creatinine 3.03 H (0.6-1.5) mg/dL Est GFR (CKD-EPI) (>=60) Glucose 128 H (70-110) mg/dL POC Glucose (mg/dL) 130 H (70-110) mg/dL Calcium 8.1 L (8.7-10.3) mg/dL AST (13-35) U/L ALT (8-44) U/L Alkaline Phosphatase (41-126) U/L Total Protein (6.2-8.2) g/dL Albumin (3.8-4.9) g/dL Globulin (1.6-3.3) g/dL Microbiology - Last 24 Hours (Table) 08/15/23 15:55 Blood Culture - Preliminary Blood 08/15/23 16:53 Urine Culture - Final Urine,Catheterized Klebsiella oxytoca Klebsiella pneumoniae Assessment and Plan Assessment: decompensated liver cirrhosis with ascites and fluid overload. History of TIPS procedure Urinary tract infection secondary to Klebsiella Right lower extremity cellulitis Acute on chronic kidney disease stage IV Mild anemia and thrombocytopenia Mild hypernatremia Plan: Continue with ethacrynic acid per traffic control operator Discontinue IV Solu-Medrol, steroids was given to decrease Lasix side effect. Currently patient of Lasix. Also discontinue IV Benadryl and Accu-Chek. Nephrology team on the case with close monitoring of creatinine Patient fluid overload is improving and continue the fluid restriction GI and DVT prophylaxis Prognosis is guarded
[2023-08-19] MEDS: ERGOCALCIFEROL 1,250 MCG (50,000 IU) CAPSULE PO SCH (08:29)
[2023-08-19 10:31] LABS: BUN/Creat Ratio 16.16 Ratio (12.00-20.00); Blood Urea Nitrogen 50.1 mg/dL (9.0-27.0); Calcium 8.4 mg/dL (8.7-10.3); Chloride 108 mmol/L (96-109); Glucose 81 mg/dL (70-110); Magnesium 1.8 mg/dL (1.5-2.4); Potassium 3.3 mmol/L (3.5-5.5); Sodium 145 mmol/L (135-145)
--- NOTE | 2023-08-19 11:42 | P.PN ---
Subjective Patient is seen in follow-up for acute kidney injury on chronic kidney disease. Currently on ethacrynic acid. Nonoliguric. Denies chest pain or shortness of breath. Oral intake fair. Renal function stable. Vital signs are stable. General: No acute distress. HEENT: Head exam is unremarkable. LUNGS: No audible rhonchi or wheezes. HEART: Rate and Rhythm are regular. ABDOMEN: Nontender. EXTREMITITES: Trace edema. Objective - Vital Signs Vital signs: Vital Signs Temp 97.8 F 08/19/23 07:19 Pulse 56 L 08/19/23 07:19 Resp 16 08/19/23 07:19 BP 146/53 08/19/23 07:19 Pulse Ox 94 L 08/19/23 09:28 FiO2 Intake & Output 08/18/23 08/19/23 08/19/23 18:59 06:59 18:59 Intake Total 240 240 Output Total 450 700 Balance -210 -460 Weight 73 kg 28 kg Intake: Oral 240 240 Output: Urine 450 700 Other: Voiding Method Indwelling Catheter Indwelling Catheter Indwelling Catheter # Bowel Movements 1 3 2 - Labs CBC & Chem 7: 08/17/23 10:53 08/19/23 07:28 Labs: Abnormal Lab Results - Last 24 Hours (Table) 08/19/23 Range/Units 07:28 Potassium 3.3 L (3.5-5.5) mmol/L Anion Gap 13.00 H (4.00-12.00) mmol/L BUN 50.1 H (9.0-27.0) mg/dL Creatinine 3.1 H (0.6-1.5) mg/dL Est GFR (CKD-EPI) 16 L (>=60) Calcium 8.4 L (8.7-10.3) mg/dL Microbiology - Last 24 Hours (Table) 08/15/23 15:55 Blood Culture - Preliminary Blood Assessment and Plan Plan: Assessment: 1. Acute kidney injury secondary to ATN. Concern for hepatorenal syndrome. No hydronephrosis noted on CT. No proteinuria on UA. Creatinine stable at 3.1 to day. 2. Chronic kidney disease stage IV with baseline creatinine near 2. Patient follows at [facility]. 3. Volume overload. Improving with diuresis. 4. History of liver cirrhosis status post TIPS procedure at [facility]. 5. Sulfa allergy. 6. Hypokalemia from diuresis. 7. Hypernatremia from lack of oral water intake. Plan: Encouraged oral intake, including free water. Replace potassium and add maintenance potassium supplementation. Maintain ethacrynic acid. Maintain midodrine. Hold for systolic blood pressure greater than 115. Continue to monitor renal function and urine output.
[2023-08-19] MEDS: POTASSIUM CHLORIDE ER 20 MEQ TAB.ER PO STA (12:02)
--- NOTE | 2023-08-19 12:37 | P.PN ---
Subjective This is a pleasant 72 years old female with past medical history of liver disease and cirrhosis. Presents with dyspnea and fluid overload secondary to decompensated liver cirrhosis. Patient has a known history of TIPS procedure Also patient was found to have acute urinary tract infection secondary to Klebsiella and right lower extremity cellulitis kept on cefazolin Patient looks improving slowly and gradually. Patient was on IV fluids which was discontinued, she was on D5W for mild hypernatremia. Creatinine is above baseline of 2.1 with chronic kidney disease stage IV, currently is elevated to 3.0 thought secondary to acute tubular necrosis secondary to hepatorenal syndrome. She was started on ethacrynic acid diuretic today, per Melt Supervisor Patient states that he is doing well He has Chávez catheter with good urine output 08/19/2023 Patient had frequent bowel movement about 4 since morning. Patient was feeling discomfort because of frequent bowel movements and she wants her lactulose to be downgraded. We are going to hold lactulose doses today and resume tomorrow at a lower dose of 10 g 3 times daily. Also she made it about 1800 mL of urine output since morning after she was started on ethacrynic acid creatinine remained stable over 3.0. Low potassium and magnesium being replaced and monitored Her both legs are wrapped and Milo bandage No much basal crepitation Will ask for PT/OT evaluation Objective - Vital Signs Vital signs: Vital Signs Temp 98.0 F 08/19/23 11:48 Pulse 59 L 08/19/23 11:48 Resp 16 08/19/23 11:48 BP 147/53 08/19/23 11:48 Pulse Ox 94 L 08/19/23 11:48 FiO2 Intake & Output 08/18/23 08/19/23 08/19/23 18:59 06:59 18:59 Intake Total 240 240 Output Total 450 700 Balance -210 -460 Weight 73 kg 28 kg Intake: Oral 240 240 Output: Urine 450 700 Other: Voiding Method Indwelling Catheter Indwelling Catheter Indwelling Catheter # Bowel Movements 1 3 2 - Exam GENERAL: The patient is alert and oriented x3, not in any acute distress. Well developed, well nourished. HEENT: Pupils are round and equally reacting to light. EOMI. No scleral icterus. No conjunctival pallor. Normocephalic, atraumatic. No pharyngeal erythema. No thyromegaly. CARDIOVASCULAR: S1 and S2 present. No murmurs, rubs, or gallops. PULMONARY: Chest is clear to auscultation, no wheezing , no crackles. ABDOMEN: Soft, nontender, nondistended, normoactive bowel sounds. No palpable organomegaly. MUSCULOSKELETAL: No joint swelling or deformity. -EXTREMITIES: No cyanosis, clubbing,. Bilateral pitting leg edema. NEUROLOGICAL: Gross neurological examination did not reveal any focal deficits. SKIN: No rashes. no petechiae. - Labs CBC & Chem 7: 08/17/23 10:53 08/19/23 07:28 Labs: Abnormal Lab Results - Last 24 Hours (Table) 08/19/23 Range/Units 07:28 Potassium 3.3 L (3.5-5.5) mmol/L Anion Gap 13.00 H (4.00-12.00) mmol/L BUN 50.1 H (9.0-27.0) mg/dL Creatinine 3.1 H (0.6-1.5) mg/dL Est GFR (CKD-EPI) 16 L (>=60) Calcium 8.4 L (8.7-10.3) mg/dL Microbiology - Last 24 Hours (Table) 08/15/23 15:55 Blood Culture - Preliminary Blood Assessment and Plan Assessment: decompensated liver cirrhosis with ascites and fluid overload. History of TIPS procedure Urinary tract infection secondary to Klebsiella Right lower extremity cellulitis Acute on chronic kidney disease stage IV Mild anemia and thrombocytopenia Mild hypernatremia Plan: Continue with ethacrynic acid per endoscopy specialty technician Lower dose of lactulose 20 mg down to 10 mg 3 times daily Nephrology team on the case with close monitoring of creatinine Patient fluid overload is improving and continue the fluid restriction GI and DVT prophylaxis Prognosis is guarded
[2023-08-20] MEDS: POTASSIUM CHLORIDE ER 10 MEQ TAB.ER.PRT PO SCH (09:02)
[2023-08-20 09:44] LABS: BUN/Creat Ratio 16.31 Ratio (12.00-20.00); Blood Urea Nitrogen 47.3 mg/dL (9.0-27.0); Carbon Dioxide 24.2 mmol/L (21.6-31.8); Chloride 109 mmol/L (96-109); Glucose 97 mg/dL (70-110); Potassium 3.3 mmol/L (3.5-5.5); Sodium 146 mmol/L (135-145)
[2023-08-20] MEDS: LACTULOSE 20 GM/30 ML CUP PO SCH (09:44)
[2023-08-20 09:45] LABS: Magnesium 1.7 mg/dL (1.5-2.4)
--- NOTE | 2023-08-20 11:34 | P.PN ---
Subjective Patient is seen in follow-up for acute kidney injury on chronic kidney disease. Currently on ethacrynic acid. Nonoliguric. Denies chest pain or shortness of breath. Oral intake fair. Renal function little better. Vital signs are stable. General: No acute distress. HEENT: Head exam is unremarkable. LUNGS: No audible rhonchi or wheezes. HEART: Rate and Rhythm are regular. ABDOMEN: Nontender. EXTREMITITES: Trace edema. Objective - Vital Signs Vital signs: Vital Signs Temp 98.8 F 08/20/23 07:35 Pulse 66 08/20/23 07:35 Resp 16 08/20/23 07:35 BP 158/64 08/20/23 07:35 Pulse Ox 90 L 08/20/23 07:35 FiO2 Intake & Output 08/19/23 08/20/23 08/20/23 18:59 06:59 18:59 Intake Total 240 290 Output Total 900 800 Balance -660 -510 Weight 70.4 kg Intake: Intake, IV Titration 50 Amount ceFAZolin 1,000 mg In 50 Sodium Chloride 0.9% 50 ml @ 100 mls/hr IVPB Q12HR [facility] Rx#:[id number] Oral 240 240 Output: Urine 900 800 Other: Voiding Method Indwelling Catheter Indwelling Catheter # Bowel Movements 1 1 - Labs CBC & Chem 7: 08/17/23 10:53 08/20/23 04:50 Labs: Abnormal Lab Results - Last 24 Hours (Table) 08/20/23 Range/Units 04:50 Sodium 146 H (135-145) mmol/L Potassium 3.3 L (3.5-5.5) mmol/L Anion Gap 12.80 H (4.00-12.00) mmol/L BUN 47.3 H (9.0-27.0) mg/dL Creatinine 2.9 H (0.6-1.5) mg/dL Est GFR (CKD-EPI) 17 L (>=60) Calcium 8.0 L (8.7-10.3) mg/dL Assessment and Plan Plan: Assessment: 1. Acute kidney injury secondary to ATN. Concern for hepatorenal syndrome. No hydronephrosis noted on CT. No proteinuria on UA. Creatinine stable at 2.9. 2. Chronic kidney disease stage IV with baseline creatinine near 2. Patient follows at [facility]. 3. Volume overload. Improving with diuresis. 4. History of liver cirrhosis status post TIPS procedure at [facility]. 5. Sulfa allergy. 6. Hypokalemia from diuresis. 7. Hypernatremia from lack of oral water intake. Plan: Encouraged oral intake, including free water. Resume D5W at 50 cc an hour. Replace potassium. Maintain ethacrynic acid. Maintain midodrine. Hold for systolic blood pressure greater than 115. Continue to monitor renal function and urine output. Okay to DC Chávez catheter and monitor for retention.
[2023-08-20] MEDS: POTASSIUM CHLORIDE ER 20 MEQ TAB.ER PO STA (12:20)
[2023-08-20] MEDS: DEXTROSE 5% IN WATER 1,000 ML IV SCH (12:21)
--- NOTE | 2023-08-20 22:22 | P.PN ---
Subjective Progress Note Date: 08/19/23 Principal diagnosis: Reason for follow-up visit possible UTI/lower extremity cellulitis Patient is a 72-year-old female with a past medical history significant for hypertension reflux, and variable immunodeficiency and cirrhosis of the liver in this patient who recently did have TIPS procedure at [facility] presented to hospital with increasing shortness of breath lower extremity swelling ultrasound abdomen did not show significant ascites. On today's evaluation that is 08/19/2023, the patient continues to be afebrile, the patient is on room air and breathing comfortably, the Pt denies having any chest pain or cough, the patient denies having any abdominal pain no vomiting or any diarrhea pain and swelling to the lower extremity has decreased in intensity. Patient did have a creatinine of 3.10 CBC was done today urine with Klebsiella Objective - Vital Signs Vital signs: Vital Signs Temp 98.0 F 08/19/23 11:48 Pulse 59 L 08/19/23 11:48 Resp 16 08/19/23 11:48 BP 147/53 08/19/23 11:48 Pulse Ox 94 L 08/19/23 11:48 FiO2 Intake & Output 08/18/23 08/19/23 08/19/23 18:59 06:59 18:59 Intake Total 240 240 240 Output Total 450 700 900 Balance -210 460 -660 Weight 73 kg 28 kg Intake: Oral 240 240 240 Output: Urine 450 700 900 Other: Voiding Method Indwelling Catheter Indwelling Catheter Indwelling Catheter # Bowel Movements 1 3 1 - Exam GENERAL DESCRIPTION: An elderly female lying in bed in no distress RESPIRATORY SYSTEM: Unlabored breathing , decreased breath sounds at bases HEART: S1 S2 regular rate and rhythm , ABDOMEN: Soft , no tenderness EXTREMITIES: Diffuse swelling of bilateral lower extremity with some redness and warmth - Labs CBC & Chem 7: 08/17/23 10:53 08/20/23 04:50 Labs: Abnormal Lab Results - Last 24 Hours (Table) 08/19/23 Range/Units 07:28 Potassium 3.3 L (3.5-5.5) mmol/L Anion Gap 13.00 H (4.00-12.00) mmol/L BUN 50.1 H (9.0-27.0) mg/dL Creatinine 3.1 H (0.6-1.5) mg/dL Est GFR (CKD-EPI) 16 L (>=60) Calcium 8.4 L (8.7-10.3) mg/dL Microbiology - Last 24 Hours (Table) 08/15/23 15:55 Blood Culture - Preliminary Blood Assessment and Plan (1) Allergy to sulfa drugs Current Visit: Yes Status: Acute Code(s): Z88.2 - ALLERGY STATUS TO SULFONAMIDES SNOMED Code(s): 45395868 (2) Cellulitis of right leg Current Visit: Yes Status: Acute Code(s): L03.115 - CELLULITIS OF RIGHT LOW ER LIMB SNOMED Code(s): 61197569465434218 (3) Urinary tract infection Current Visit: No Status: Acute Code(s): N39.0 - URINARY TRACT INFECTION, SITE NOT SPECIFIED SNOMED Code(s): 00383320 Plan: 1patient presented to hospital with abdominal distention lower extremity swelling and shortness of breath likely concerning for fluid overload in this patient who did have a history of cirrhosis of the liver and recently did have TIPS procedure at the [facility] she did have mildly positive UA however with more abdominal symptoms of distention some discomfort underlying SBP not entirely excluded 2-patient urine is growing Klebsiella that is sensitive to cefazolin also with complaint of right lower extreme cellulitis 3-patient currently being treated with the cefazolin along with Milo wrap to the leg to keep the swelling down and monitor clinical course closely Dictation was produced using [employer] dictation software. please excuse any grammatical, word or spelling errors. Time with Patient: Less than 30
--- NOTE | 2023-08-20 22:23 | P.PN ---
Subjective Progress Note Date: 08/20/23 Principal diagnosis: Reason for follow-up visit possible UTI/lower extremity cellulitis Patient is a 72-year-old female with a past medical history significant for hypertension reflux, and variable immunodeficiency and cirrhosis of the liver in this patient who recently did have TIPS procedure at [facility] presented to hospital with increasing shortness of breath lower extremity swelling ultrasound abdomen did not show significant ascites. On today's evaluation that is 08/20/2023, Patient is afebrile patient is currently on room air and denies having any shortness of breath, the patient denies any chest pain or cough, the patient denies any nausea vomiting did not have any abdominal pain and no diarrhea, denies pain to bilateral lower extremity tolerating her compression/Milo wrap. Patient creatinine slightly down to 2.9 Objective - Vital Signs Vital signs: Vital Signs Temp 98.1 F 08/20/23 11:39 Pulse 66 08/20/23 11:39 Resp 16 08/20/23 11:39 BP 159/58 08/20/23 11:39 Pulse Ox 94 L 08/20/23 11:39 FiO2 Intake & Output 08/19/23 08/20/23 08/20/23 18:59 06:59 18:59 Intake Total 240 290 Output Total 900 800 Balance -660 -510 Weight 70.4 kg Intake: Intake, IV Titration 50 Amount ceFAZolin 1,000 mg In 50 Sodium Chloride 0.9% 50 ml @ 100 mls/hr IVPB Q12HR [facility] Rx#:[id number] Oral 240 240 Output: Urine 900 800 Other: Voiding Method Indwelling Catheter Indwelling Catheter # Voids 1 # Bowel Movements 1 1 - Exam GENERAL DESCRIPTION: An elderly female lying in bed in no distress RESPIRATORY SYSTEM: Unlabored breathing , decreased breath sounds at bases HEART: S1 S2 regular rate and rhythm , ABDOMEN: Soft , no tenderness EXTREMITIES: Diffuse swelling of bilateral lower extremity with some redness and warmth - Labs CBC & Chem 7: 08/17/23 10:53 08/20/23 04:50 Labs: Abnormal Lab Results - Last 24 Hours (Table) 08/20/23 Range/Units 04:50 Sodium 146 H (135-145) mmol/L Potassium 3.3 L (3.5-5.5) mmol/L Anion Gap 12.80 H (4.00-12.00) mmol/L BUN 47.3 H (9.0-27.0) mg/dL Creatinine 2.9 H (0.6-1.5) mg/dL Est GFR (CKD-EPI) 17 L (>=60) Calcium 8.0 L (8.7-10.3) mg/dL Assessment and Plan (1) Allergy to sulfa drugs Current Visit: Yes Status: Acute Code(s): Z88.2 - ALLERGY STATUS TO SULFONAMIDES SNOMED Code(s): 27439041 (2) Cellulitis of right leg Current Visit: Yes Status: Acute Code(s): L03.115 - CELLULITIS OF RIGHT LOWER LIMB SNOMED Code(s): 27815731653123290 (3) Urinary tract infection Current Visit: No Status: Acute Code(s): N39.0 - URINARY TRACT INFECTION, SITE NOT SPECIFIED SNOMED Code(s): 24052926 Plan: 1patient presented to hospital with abdominal distention lower extremity swel ling and shortness of breath likely concerning for fluid overload in this patient who did have a history of cirrhosis of the liver and recently did have TIPS procedure at the [facility] she did have mildly positive UA however with more abdominal symptoms of distention some discomfort underlying SBP not entirely excluded 2-patient urine is growing Klebsiella that is sensitive to cefazolin also with complaint of right lower extreme cellulitis 3-patient to continue cefazolin along with Milo wrap to the leg to keep the swelling down, patient be able to finish therapy with oral Keflex Dictation was produced using [email or web address] dictation software. please excuse any grammatical, word or spelling errors. Time with Patient: Less than 30
--- NOTE | 2023-08-21 08:51 | P.PN ---
Subjective This is a pleasant 72 years old female with past medical history of liver disease and cirrhosis. Presents with dyspnea and fluid overload secondary to decompensated liver cirrhosis. Patient has a known history of TIPS procedure Also patient was found to have acute urinary tract infection secondary to Klebsiella and right lower extremity cellulitis kept on cefazolin Patient looks improving slowly and gradually. Patient was on IV fluids which was discontinued, she was on D5W for mild hypernatremia. Creatinine is above baseline of 2.1 with chronic kidney disease stage IV, currently is elevated to 3.0 thought secondary to acute tubular necrosis secondary to hepatorenal syndrome. She was started on ethacrynic acid diuretic today, per Wound/Ostomy Nurse Patient states that he is doing well He has Chávez catheter with good urine output 08/19/2023 Patient had frequent bowel movement about 4 since morning. Patient was feeling discomfort because of frequent bowel movements and she wants her lactulose to be downgraded. We are going to hold lactulose doses today and resume tomorrow at a lower dose of 10 g 3 times daily. Also she made it about 1800 mL of urine output since morning after she was started on ethacrynic acid creatinine remained stable over 3.0. Low potassium and magnesium being replaced and monitored Her both legs are wrapped and Milo bandage No much basal crepitation Will ask for PT/OT evaluation 08/20/2023 Patient awake alert, no specific complaint today Still generally weak Has 2 bowel movement today Fully alert today with a voiding trial Patient was a started on D5W again today with close monitoring of sodium level, currently 1.6. Remains on ethacrynic acid with good urine output Potassium and magnesium were replaced Objective - Vital Signs Vital signs: Vital Signs Temp 98.1 F 08/20/23 11:39 Pulse 66 08/20/23 11:39 Resp 16 08/20/23 11:39 BP 159/58 08/20/23 11:39 Pulse Ox 94 L 08/20/23 11:39 FiO2 Intake & Output 08/19/23 08/20/23 08/20/23 18:59 06:59 18:59 Intake Total 240 290 Output Total 900 800 Balance -660 -510 Weight 70.4 kg Intake: Intake, IV Titration 50 Amount ceFAZolin 1,000 mg In 50 Sodium Chloride 0.9% 50 ml @ 100 mls/hr IVPB Q12HR [facility] Rx#:[id number] Oral 240 240 Output: Urine 900 800 Other: Voiding Method Indwelling Catheter Indwelling Catheter # Voids 1 # Bowel Movements 1 1 - Exam GENERAL: The patient is alert and oriented x3, not in any acute distress. Well developed, well nourished. HEENT: Pupils are round and equally reacting to light. EOMI. No scleral icterus. No conjunctival pallor. Normocephalic, atraumatic. No pharyngeal erythema. No thyromegaly. CARDIOVASCULAR: S1 and S2 present. No murmurs, rubs, or gallops. PULMONARY: Chest is clear to auscultation, no wheezing , no crackles. ABDOMEN: Soft, nontender, nondistended, normoactive bowel sounds. No palpable organomegaly. MUSCULOSKELETAL: No joint swelling or deformity. -EXTREMITIES: No cyanosis, clubbing,. Bilateral pitting leg edema. NEUROLOGICAL: Gross neurological examination did not reveal any focal deficits. SKIN: No rashes. no petechiae. - Labs CBC & Chem 7: 08/17/23 10:53 08/20/23 04:50 Labs: Abnormal Lab Results - Last 24 Hours (Table) 08/20/23 Range/Units 04:50 Sodium 146 H (135-145) mmol/L Potassium 3.3 L (3.5-5.5) mmol/L Anion Gap 12.80 H (4.00-12.00) mmol/L BUN 47.3 H (9.0-27.0) mg/dL Creatinine 2.9 H (0.6-1.5) mg/dL Est GFR (CKD-EPI) 17 L (>=60) Calcium 8.0 L (8.7-10.3) mg/dL Assessment and Plan Assessment: decompensated liver cirrhosis with ascites and fluid overload. History of TIPS procedure Urinary tract infection secondary to Klebsiella Right lower extremity cellulitis Acute on chronic kidney disease stage IV Mild anemia and thrombocytopenia Mild hypernatremia Plan: Continue with ethacrynic acid per machine inspector Lower dose of lactulose 10 mg down to 10 mg 3 times daily resume D5W Discontinue Chávez catheter and check postvoid residual and discussed with staff Nephrology team on the case with close monitoring of creatinine Patient fluid overload is improving and continue the fluid restriction GI and DVT prophylaxis Prognosis is guarded
[2023-08-21 11:24] LABS: BUN/Creat Ratio 16.27 Ratio (12.00-20.00); Blood Urea Nitrogen 42.3 mg/dL (9.0-27.0); Glucose 119 mg/dL (70-110)
[2023-08-21 11:25] LABS: Calcium 7.8 mg/dL (8.7-10.3); Chloride 108 mmol/L (96-109); Magnesium 1.6 mg/dL (1.5-2.4); Potassium 3.3 mmol/L (3.5-5.5); Sodium 143 mmol/L (135-145)
--- NOTE | 2023-08-21 11:41 | P.PN ---
Subjective Patient is seen in follow-up for acute kidney injury on chronic kidney disease. Currently on ethacrynic acid. Nonoliguric. Denies chest pain or shortness of breath. Oral intake fair. Renal function better. Vital signs are stable. General: No acute distress. HEENT: Head exam is unremarkable. LUNGS: No audible rhonchi or wheezes. HEART: Rate and Rhythm are regular. ABDOMEN: Nontender. EXTREMITITES: Trace edema. Objective - Vital Signs Vital signs: Vital Signs Temp 98.1 F 08/21/23 07:34 Pulse 68 08/21/23 07:34 Resp 16 08/21/23 07:34 BP 163/63 08/21/23 07:34 Pulse Ox 93 L 08/21/23 07:34 FiO2 Intake & Output 08/20/23 08/21/23 08/21/23 18:59 06:59 18:59 Intake Total 240 240 Balance 240 240 Intake: Oral 240 240 Other: Voiding Method Indwelling Catheter # Voids 1 # Bowel Movements 1 - Labs CBC & Chem 7: 08/17/23 10:53 08/21/23 07:08 Labs: Abnormal Lab Results - Last 24 Hours (Table) 08/21/23 Range/Units 07:08 Potassium 3.3 L (3.5-5.5) mmol/L BUN 42.3 H (9.0-27.0) mg/dL Creatinine 2.6 H (0.6-1.5) mg/dL Est GFR (CKD-EPI) 19 L (>=60) Glucose 119 H (70-110) mg/dL Calcium 7.8 L (8.7-10.3) mg/dL Microbiology - Last 24 Hours (Table) 08/15/23 15:55 Blood Culture - Final Blood Assessment and Plan Plan: Assessment: 1. Acute kidney injury secondary to ATN. Concern for hepatorenal syndrome. No hydronephrosis noted on CT. No proteinuria on UA. Creatinine improved to 2.6 today. 2. Chronic kidney disease stage IV with baseline creatinine near 2. Patient follows at [facility]. 3. Volume overload. Improving with diuresis. 4. History of liver cirrhosis status post TIPS procedure at [facility]. 5. Sulfa allergy. 6. Hypokalemia from diuresis. 7. Hypernatremia from lack of oral water intake. Improved with D5W. Plan: Encouraged oral intake, including free water. Hep-Lock IV fluids. Replace potassium. Also on maintenance potassium supplementation. Add oral magnesium oxide. Maintain ethacrynic acid. Continue to monitor renal function and urine output. Repeat BMP and magnesium level 2 to 3 days postdischarge. Follow-up outpatient in 1 week.
[2023-08-21] MEDS: POTASSIUM CHLORIDE ER 20 MEQ TAB.ER PO STA (12:58)
[2023-08-21] MEDS: MAGNESIUM OXIDE 400 MG TAB PO SCH (12:59)
[2023-08-21 15:00] VITALS: BMI 28.3
--- NOTE | 2023-08-21 19:52 | P.PN ---
Subjective Progress Note Date: 08/21/23 Principal diagnosis: Reason for follow-up visit possible UTI/lower extremity cellulitis Patient is a 72-year-old female with a past medical history significant for hypertension reflux, and variable immunodeficiency and cirrhosis of the liver in this patient who recently did have TIPS procedure at [facility] presented to hospital with increasing shortness of breath lower extremity swelling ultrasound abdomen did not show significant ascites. On today's evaluation that is 08/21/2023, patient has been afebrile, patient is breathing comfortably and is currently on room air, patient denies having any significant cough no chest pain shortness of breath, patient denies nausea vomiting or diarrhea and no abdominal pain, denies pain to bilateral lower extremity Patient creatinine is 2.6 after blood work Objective - Vital Signs Vital signs: Vital Signs Temp 98.1 F 08/21/23 07:34 Pulse 68 08/21/23 07:34 Resp 16 08/21/23 07:34 BP 163/63 08/21/23 07:34 Pulse Ox 93 L 08/21/23 07:34 FiO2 Intake & Output 08/20/23 08/21/23 08/21/23 18:59 06:59 18:59 Intake Total 240 240 Balance 240 240 Intake: Oral 240 240 Other: Voiding Method Indwelling Catheter # Voids 1 # Bowel Movements 1 - Exam GENERAL DESCRIPTION: An elderly female lying in bed in no distress RESPIRATORY SYSTEM: Unlabored breathing , decreased breath sounds at bases HEART: S1 S2 regular rate and rhythm , ABDOMEN: Soft , no tenderness EXTREMITIES: Bilateral leg swelling redness has decreased - Labs CBC & Chem 7: 08/17/23 10:53 08/21/23 07:08 Labs: Abnormal Lab Results - Last 24 Hours (Table) 08/21/23 Range/Units 07:08 Potassium 3.3 L (3.5-5.5) mmol/L BUN 42.3 H (9.0-27.0) mg/dL Creatinine 2.6 H (0.6-1.5) mg/dL Est GFR (CKD-EPI) 19 L (>=60) Glucose 119 H (70-110) mg/dL Calcium 7.8 L (8.7-10.3) mg/dL Microbiology - Last 24 Hours (Table) 08/15/23 15:55 Blood Culture - Final Blood Assessment and Plan (1) Allergy to sulfa drugs Current Visit: Yes Status: Acute Code(s): Z88.2 - ALLERGY STATUS TO SULFONAMIDES SNOMED Code(s): 92229365 (2) Cellulitis of right leg Current Visit: Yes Status: Acute Code(s): L03.115 - CELLULITIS OF RIGHT LOWER LIMB SNOMED Code(s): 75982548786738252 (3) Urinary tract infection Current Visit: No Status: Acute Code(s): N39.0 - URINARY TRACT INFECTION, SITE NOT SPECIFIED SNOMED Code(s): 77539938 Plan: 1patient presented to hospital with abdominal distention lower extremity swelling and shortness of breath likely concerning for fluid overload in this patient who did have a history of cirrhosis of the liver and recently did have TIPS procedure at the [facility] she did have mildly positive UA however with more abdominal symptoms of distention some discomfort underlying SBP not entirely excluded 2-patient urine is growing Klebsiella that is sensitive to cefazolin also with complaint of right lower extreme cellulitis 3-patient improving with cefazolin to continue along with Milo wrap to the leg to keep the swelling down, plan to finish therapy with oral Keflex Dictation was produced using [email or web address] dictation software. please excuse any grammatical, word or spelling errors. Time with Patient: Less than 30
[2023-08-21 21:03] VITALS: RESP 16
[2023-08-22 07:59] VITALS: BP 129/51; PULSE 73; TEMP 98.2
[2023-08-22] MEDS: POTASSIUM CHLORIDE ER 20 MEQ TAB.ER PO SCH (09:07)
[2023-08-22 10:19] LABS: BUN/Creat Ratio 17.17 Ratio (12.00-20.00); Blood Urea Nitrogen 39.5 mg/dL (9.0-27.0); Calcium 7.9 mg/dL (8.7-10.3); Carbon Dioxide 24.7 mmol/L (21.6-31.8); Chloride 108 mmol/L (96-109); Glucose 83 mg/dL (70-110); Sodium 143 mmol/L (135-145)
--- NOTE | 2023-08-22 11:48 | P.PN ---
Subjective Patient is seen in follow-up for acute kidney injury on chronic kidney disease. Currently on ethacrynic acid. Nonoliguric. Denies chest pain or shortness of breath. Oral intake fair. Renal function better. No active complaints. Vital signs are stable. General: No acute distress. HEENT: Head exam is unremarkable. LUNGS: No audible rhonchi or wheezes. HEART: Rate and Rhythm are regular. ABDOMEN: Nontender. EXTREMITITES: Trace edema. Objective - Vital Signs Vital signs: Vital Signs Temp 98.2 F 08/22/23 07:58 Pulse 73 08/22/23 07:58 Resp 16 08/22/23 07:58 BP 129/51 08/22/23 07:58 Pulse Ox 93 L 08/22/23 09:01 FiO2 Intake & Output 08/21/23 08/22/23 08/22/23 18:59 06:59 18:59 Intake Total 480 240 120 Balance 480 240 120 Weight 70.4 kg Intake: Oral 480 240 120 Other: Voiding Method Toilet Toilet - Labs CBC & Chem 7: 08/17/23 10:53 08/22/23 06:00 Labs: Abnormal Lab Results - Last 24 Hours (Table) 08/22/23 Range/Units 06:00 BUN 39.5 H (9.0-27.0) mg/dL Creatinine 2.3 H (0.6-1.5) mg/dL Est GFR (CKD-EPI) 22 L (>=60) Calcium 7.9 L (8.7-10.3) mg/dL Assessment and Plan Plan: Assessment: 1. Acute kidney injury secondary to ATN. Concern for hepatorenal syndrome. No hydronephrosis noted on CT. No proteinuria on UA. Creatinine improved to 2.3 today. 2. Chronic kidney disease stage IV with baseline creatinine near 2. Patient follows at [facility]. 3. Volume overload. Improved with diuresis. 4. History of liver cirrhosis status post TIPS procedure at [facility]. 5. Sulfa allergy. 6. Hypokalemia from diuresis. Replaced. Better. 7. Hypernatremia from lack of oral water intake. Improved with D5W. Plan: Encouraged oral intake, including free water. Maintain potassium and magnesium supplementation. Maintain ethacrynic acid. Continue to monitor renal function and urine output. Repeat BMP and magnesium level 2 to 3 days postdischarge. Follow-up outpatient in 1 week.
--- NOTE | 2023-08-29 22:19 | P.PN ---
Subjective Progress Note Date: 08/22/23 Principal diagnosis: Reason for follow-up visit possible UTI/lower extremity cellulitis Patient is a 72-year-old female with a past medical history significant for hypertension reflux, and variable immunodeficiency and cirrhosis of the liver in this patient who recently did have TIPS procedure at [facility] presented to hospital with increasing shortness of breath lower extremity swelling ultrasound abdomen did not show significant ascites. On today's evaluation that is 08/22/2023, patient continues to be afebrile, patient is breathing comfortably on room air, patient denies cough no chest pain shortness of breath, patient denies nausea vomiting or diarrhea and no abdominal pain, denies pain to bilateral lower extremity Patient blood work was reviewed creatinine is 2.3 Objective - Vital Signs Vital signs: Vital Signs Temp 98.2 F 08/22/23 07:58 Pulse 73 08/22/23 07:58 Resp 16 08/22/23 07:58 BP 129/51 08/22/23 07:58 Pulse Ox 93 L 08/22/23 09:01 FiO2 Intake & Output 08/21/23 08/22/23 08/22/23 18:59 06:59 18:59 Intake Total 480 240 120 Balance 480 240 120 Weight 70.4 kg Intake: Oral 480 240 120 Other: Voiding Method Toilet Toilet - Exam GENERAL DESCRIPTION: An elderly female lying in bed in no distress RESPIRATORY SYSTEM: Unlabored breathing , decreased breath sounds at bases HEART: S1 S2 regular rate and rhythm , ABDOMEN: Soft , no tenderness EXTREMITIES: Bilateral leg swelling redness has decreased - Labs CBC & Chem 7: 08/17/23 10:53 08/22/23 06:00 Labs: Abnormal Lab Results - Last 24 Hours (Table) 08/22/23 Range/Units 06:00 BUN 39.5 H (9.0-27.0) mg/dL Creatinine 2.3 H (0.6-1.5) mg/dL Est GFR (CKD-EPI) 22 L (>=60) Calcium 7.9 L (8.7-10.3) mg/dL Assessment and Plan (1) Allergy to sulfa drugs Status: Acute Code(s): Z88.2 - ALLERGY STATUS TO SULFONAMIDES SNOMED Code(s): 98375878 (2) Cellulitis of right leg Status: Acute Code(s): L03.115 - CELLULITIS OF RIGHT LOWER LIMB SNOMED Code(s): 81473758434723551 (3) Urinary tract infection Status: Acute Code(s): N39.0 - URINARY TRACT INFECTION, SITE NOT SPECIFIED SNOMED Code(s): 91043273 Plan: 1patient presented to hospital with abdominal distention lower extremity swelling and shortness of breath likely concerning for fluid overload in this patient who did have a history of cirrhosis of the liver and recently did have TIPS procedure at the [facility] she did have mildly positive UA however with more abdominal symptoms of distention some discomfort underlying SBP not entirely excluded 2-patient urine is growing Klebsiella that is sensitive to cefazolin also with complaint of right lower extreme cellulitis 3-patient advised to continue with Milo wrap to the leg to keep the swelling down and a 7-day course of Keflex on discharge Dictation was produced using [employer] dictation software. please excuse any grammatical, word or spelling errors. Time with Patient: Less than 30
== END 2023-08-22 16:15 | disposition home or self-care (01) | DRG 682 ==
LOC: EC 13:59 → OBSVTOIN 18:34 → 5NMEDONC 18:34 → INTOOBSV 18:34 → 5NMEDONC 21:05
PROVIDERS: ADMIT Hospitalist; ATTEND Hospitalist
DX: N17.0 Acute kidney failure with tubular necrosis (principal); I50.33 Acute on chronic diastolic (congestive) heart failure; K76.7 Hepatorenal syndrome; L03.115 Cellulitis of right lower limb; N39.0 Urinary tract infection, site not specified; R18.8 Other ascites; E87.0 Hyperosmolality and hypernatremia; D83.9 Common variable immunodeficiency, unspecified; D61.818 Other pancytopenia; K76.6 Portal hypertension; I13.0 Hypertensive heart and chronic kidney disease with heart failure and stage 1 through stage 4 chronic kidney disease, or unspecified chronic kidney disease; K21.9 Gastro-esophageal reflux disease without esophagitis; F41.9 Anxiety disorder, unspecified; F32.A Depression, unspecified; B96.1 Klebsiella pneumoniae [K. pneumoniae] as the cause of diseases classified elsewhere; K74.60 Unspecified cirrhosis of liver; E87.6 Hypokalemia; K76.82 Hepatic encephalopathy; N18.4 Chronic kidney disease, stage 4 (severe); Z88.2 Allergy status to sulfonamides; Z79.899 Other long term (current) drug therapy; Z86.14 Personal history of Methicillin resistant Staphylococcus aureus infection; Z88.8 Allergy status to other drugs, medicaments and biological substances
CPT/HCPCS: 36415; 71045; 71046; 74018; 74176; 76705; 80048; 80053; 81001; 82140; 83735; 83880; 84100; 84300; 84484; 85025; 85379; 85610; 85730; 87040; 87077; 87086; 87186; 93005; 94760; 96374; 96375; 96376; 99285

== ENCOUNTER → 2023-08-25 | Outpatient (CLI) | payer MEDICARE ==
[2023-08-25 15:16] LABS: BUN/Creat Ratio 18.95 Ratio (12.00-20.00); Blood Urea Nitrogen 37.9 mg/dL (9.0-27.0); Calcium 8.1 mg/dL (8.7-10.3); Carbon Dioxide 25.3 mmol/L (21.6-31.8); Chloride 106 mmol/L (96-109); Glucose 197 mg/dL (70-110); Potassium 4.7 mmol/L (3.5-5.5); Sodium 140 mmol/L (135-145)
== END | disposition home or self-care (01) ==
LOC: LABWHC1 10:15
PROVIDERS: ATTEND Internal Medicine
DX: Z00.00 Encounter for general adult medical examination without abnormal findings (principal)
CPT/HCPCS: 36415; 80048; 83735

== ENCOUNTER 2023-11-05 01:30 | Observation (INO) | payer MEDICARE ==
[2023-11-05] MEDS ORDERED: FUROSEMIDE 10 MG/ML 4 ML VIAL ONE (07:56)
[2023-11-05] MEDS ORDERED: ALPRAZolam 1 MG TAB ONE (23:24)
[2023-11-06] MEDS ORDERED: FAMOTIDINE 20 MG TAB ONE (08:54)
[2023-11-06] MEDS ORDERED: HEPARIN SODIUM,PORCINE 5,000 UNIT/ML 1 ML VIAL ONE (08:54)
--- NOTE | 2023-11-26 10:41 | XR ---
Wilian Molly ID: [id number] : 1950 EXAMINATION TYPE: XR chest 1V DATE OF EXAM: 11/05/2023 COMPARISON: 11/04/2023 HISTORY: 73-year-old female shortness of breath, status post right thoracentesis TECHNIQUE: Single frontal view of the chest is obtained. FINDINGS: Heart mildly enlarged. Diffuse interstitial density persists. Residual small right pleural effusion, improved from prior. No appreciable pneumothorax. IMPRESSION: 1. Ongoing pulmonary vascular congestion. 2. Residual small right pleural effusion with adjacent atelectasis and/or consolidation, decreased fr om yesterday. 3. No appreciable pneumothorax.
--- NOTE | 2023-12-02 15:24 | US ---
Molly Cedeno ID: [id number] : 1950 EXAMINATION TYPE: US abdomen limited DATE OF EXAM: 11/05/2023 Comparison: None Clinical History: 73-year-old female ascites, distention Findings and impression: Mild abdominal ascites scattered within the 4 abdominal quadrants.
--- NOTE | 2023-12-02 15:25 | US ---
Stacey Cedenoh ID: [id number] : 1950 EXAMINATION TYPE: US chest DATE OF EXAM: 11/05/2023 COMPARISON: NONE CLINICAL INDICATION: 73-year-old female assess for pleural effusion, shortness of breath TECHNIQUE: Targeted ultrasound of the posterior lower bilateral hemithoraces EXAM MEASUREMENTS: Right Pleural Effusion pocket size: 13.9 cm Right skin surface to fluid distance: 1.5 cm. Atelectatic lung is identified within the fluid po cket at depth of 2.3 cm. Left Pleural Effusion pocket size: None Right side marked for possible thoracentesis outside the dept. IMPRESSIONS: Moderate-sized right-sided pleural effusion with underlying atelectasis.
--- NOTE | 2023-12-25 17:02 | XR ---
EXAM: XR Chest, 2 Views CLINICAL HISTORY: sob. h/o renal & liver disease. pt was in hospital for same issues 2 months ago TECHNIQUE: Frontal and lateral views of the chest. COMPARISON: No relevant prior studies available. FINDINGS: Lungs: See below. Pleural space: Moderate RIGHT pleural effusion. Pulmonary vascular congestion. Findings are concerning for congestive heart failure. No pneumothorax. Heart:Unremarkable. No cardiomegaly. Mediastinum:Unremarkable. Normal mediastinal contour. Bones/joints:Unremarkable. No acute fracture. IMPRESSION: Moderate RIGHT pleural effusion. Pulmonary vascular congestion. Findings are concerning for congestive heart failure. Radiologist: Cam Camacho MD Electronically Signed: 11/05/23 00:15 Study first marked ready to read at 22:37, study last marked ready to read at 22:37, initial results transmitted at 00:15 [facility]
== END 2023-11-06 12:35 | disposition home or self-care (01) ==
LOC: 5NMEDONC 01:30
PROVIDERS: ADMIT Hospitalist; ATTEND Hospitalist
DX: J90 Pleural effusion, not elsewhere classified (principal); N17.9 Acute kidney failure, unspecified; I13.0 Hypertensive heart and chronic kidney disease with heart failure and stage 1 through stage 4 chronic kidney disease, or unspecified chronic kidney disease; I50.9 Heart failure, unspecified; N18.4 Chronic kidney disease, stage 4 (severe); D80.1 Nonfamilial hypogammaglobulinemia; D69.6 Thrombocytopenia, unspecified; K74.60 Unspecified cirrhosis of liver
CPT/HCPCS: 71045; 71046; 76604; 76705; 82945; 83615; 84157; 87070; 87075; 87102; 87205; 88108; 88305; 93005

== ENCOUNTER → 2023-11-30 | Outpatient (CLI) | payer MEDICARE ==
[2023-11-30 14:50] LABS: Creatinine,Urine Random 159.9 mg/dL; Protein/Creatinine Ratio,Urine 0.05
[2023-11-30 15:39] LABS: ALT 81 U/L (8-44); AST 84 U/L (13-35); Albumin 2.9 g/dL (3.8-4.9); Albumin/Globulin Ratio 1.53 Ratio (1.60-3.17); Alkaline Phosphatase 189 U/L (41-126); BUN/Creat Ratio 20.35 Ratio (12.00-20.00); Blood Urea Nitrogen 40.7 mg/dL (9.0-27.0); Calcium 8.4 mg/dL (8.7-10.3); Carbon Dioxide 27.1 mmol/L (21.6-31.8); Chloride 107 mmol/L (96-109); Globulin 1.9 g/dL (1.6-3.3); Glucose 116 mg/dL (70-110); Phosphorus 2.6 mg/dL (2.4-5.1); Potassium 3.5 mmol/L (3.5-5.5); Sodium 143 mmol/L (135-145); Total Bilirubin 0.9 mg/dL (0.3-1.2); Total Protein 4.8 g/dL (6.2-8.2)
[2023-11-30 15:58] LABS: Appearance,Urine Clear (Clear); Bilirubin,Urine Negative (Negative); Blood,Urine Negative (Negative); Color,Urine Yellow (Yellow); Ketones,Urine Negative (Negative); Nitrite,Urine Negative (Negative); PH, Urine 5.5; Specific Gravity,Urine 1.016 (1.001-1.030)
[2023-11-30 16:54] LABS: Bacteria,Urine 3+ (None Seen); Yeast (UA) Present (None Seen)
[2023-11-30 19:30] LABS: Basophils # (A) 0.02 X 10*3/uL (0.00-0.10); Basophils % (A) 0.8 %; Eosinophils % (A) 8.1 %; HCT 32.5 % (37.2-46.3); HGB 10.8 g/dL (12.0-15.0); Immature Platelet Fraction 1.3 % (1.1-6.1); Lymphocytes # (A) 0.58 X 10*3/uL (0.90-5.00); Lymphocytes % (A) 23.5 %; MCH 28.3 pg (27.0-32.0); MCHC 33.2 g/dL (32.0-37.0); MCV 85.3 FL (80.0-97.0); Monocytes # (A) 0.38 X 10*3/uL (0.20-1.00); Monocytes % (A) 15.4 %; NRBC Per 100 WBC 0 X 10*3/uL (0.00-0.01); Neutrophils # (A) 1.28 X 10*3/uL (1.80-7.70); Neutrophils % (A) 51.8 %; Platelet Count 41 X 10*3/uL (140-440); RBC 3.81 X 10*6/uL (4.10-5.20); RDW 16.6 % (11.5-14.5); WBC 2.47 X 10*3/uL (4.50-10.00)
[2023-11-30 22:10] LABS: Microalbumin Creatinine Ratio <8 mg/g Cr (0-30)
== END | disposition home or self-care (01) ==
LOC: LABWHC1 11:06
PROVIDERS: ATTEND Nurse Practitioner Acute Care
DX: N18.4 Chronic kidney disease, stage 4 (severe) (principal)
CPT/HCPCS: 36415; 80053; 81001; 82043; 82570; 83735; 83970; 84100; 84156; 85025

== ENCOUNTER 2023-12-28 16:06 | Inpatient (IN) | payer MEDICARE ==
[2023-12-28 17:34] LABS: Anisocytosis Moderate; Basophils % (A) 0 %; Eosinophils # (A) 0.2 k/uL (0-0.7); Eosinophils % (A) 6 %; HCT 36.9 % (34.0-46.0); HGB 12.1 gm/dL (11.4-16.0); Lymphocytes # (A) 0.7 k/uL (1.0-4.8); Lymphocytes % (A) 19 %; MCH 28.8 pg (25.0-35.0); MCHC 32.9 g/dL (31.0-37.0); MCV 87.6 fL (80.0-100.0); Mean Platelet Volume 8.3; Monocytes # (A) 0.2 k/uL (0-1.0); Monocytes % (A) 7 %; Neutrophils # (A) 2.2 k/uL (1.3-7.7); Neutrophils % (A) 65 %; Poikilocytosis Moderate; RBC 4.21 m/uL (3.80-5.40); RDW 20.3 % (11.5-15.5); WBC 3.4 k/uL (3.8-10.6)
[2023-12-28 17:38] LABS: INR 1.1 (<1.2); Partial Thromboplastin Time 27.4 sec (22.0-30.0); Prothrombin Time 11.9 sec (10.0-12.5)
[2023-12-28 17:39] LABS: ALT 90 U/L (4-34); AST 81 U/L (14-36); African American GFR (CKD) 15 (>60 ml/min/1.73 sqM); Albumin 3.1 g/dL (3.5-5.0); Alkaline Phosphatase 170 U/L (38-126); Anion Gap 10 mmol/L; Blood Urea Nitrogen 64 mg/dL (7-17); Calcium 9.2 mg/dL (8.4-10.2); Carbon Dioxide 22 mmol/L (22-30); Chloride 105 mmol/L (98-107); Glucose 108 mg/dL (74-99); Non-African American GFR(CKD) 13 (>60 ml/min/1.73 sqM); Sodium 137 mmol/L (137-145); Total Bilirubin 1.6 mg/dL (0.2-1.3); Total Protein 5.4 g/dL (6.3-8.2)
[2023-12-28 17:47] LABS: NT-Pro-B-Type Natriuretic Pept 1030 pg/mL
--- NOTE | 2023-12-28 18:00 | ED ---
SOB HPI - General Chief Complaint: Shortness of Breath Stated Complaint: SOB Time Seen by Provider: 12/28/23 16:37 Source: patient Mode of arrival: ambulatory Limitations: no limitations - History of Present Illness Initial Comments: 73-year-old female with past medical history of common variable immune deficiency, hypertension who presents emergency department with dyspnea. Patient recently hospitalized at [facility] for thoracentesis. She also had evaluation of her TIPS procedure. Patient did not require paracentesis or TIPS procedure revision. She was discharged home and had follow-up with Dr. mcgill today. He noted that she was tachypneic. Patient had recurrent pleural effusion on x-ray that was performed in the office. Recommended that the patient come over for thoracentesis or possible paracentesis. Patient has been taking her medications except for this morning. They state that they make her sick and nauseated. Patient has chronic lower extremity edema. No other alleviating, precipitating modifying factors - Related Data Home Medications Medication Instructions Recorded Confirmed traMADol HCL 50 mg PO BID PRN 08/29/19 12/28/23 Immun Glob G(IgG)/Pro/Iga 0-50 1 dose IV FR 08/12/23 12/28/23 [Hizentra 10 Gram/50 ml Syringe] ALPRAZolam [Xanax] 1 mg PO BID PRN 12/28/23 12/28/23 Aspirin EC [Ecotrin Low Dose] 81 mg PO DAILY 12/28/23 12/28/23 Bumetanide [BUMEX] 1 mg PO DAILY 12/28/23 12/28/23 Spironolactone [Aldactone] 25 mg PO DAILY 12/28/23 12/28/23 Previous Rx's Medication Instructions Recorded Midodrine [ProAmatine] 2.5 mg PO AC-TID PRN #60 tab 01/01/24 Octreotide Acetate 100 mcg IJ Q8HR #90 each 01/01/24 Allergies Allergy/AdvReac Type Severity Reaction Status Date / Time sulfamethoxazole Allergy Unknown, Verified 12/28/23 17:24 [From Bactrim] family allergy trimethoprim [From Bactrim] Allergy Unknown, Verified 12/28/23 17:24 family allergy spironolactone AdvReac Unknown Rash/Hives Verified 12/28/23 17:24 [From Aldactone] furosemide [From Lasix] AdvReac Rash/Hives Verified 12/28/23 17:24 Review of Systems ROS Statement: Those systems with pertinent positive or pertinent negative responses have been documented in the HPI. ROS Other: All systems not noted in ROS Statement are negative. Past Medical History Past Medical History: GERD/Reflux, Hypertension, Liver Disease, Renal Disease Additional Past Medical History / Comment(s): immunodeficiency History of Any Multi-Drug Resistant Organisms: MRSA Date of last positivie culture/infection: 08/23/2009 MDRO Source:: open wound bilateral arms healed Past Surgical History: Hysterectomy Additional Past Surgical History / Comment(s): common variable immune deficicency, multiple paracentesis last in may 2023, colonoscopy with polyp removal, TIPS Jan 2023, thoracentesis Past Anesthesia/Blood Transfusion Reactions: No Reported Reaction Additional Past Anesthesia/Blood Transfusion Reaction / Comment(s): Slow to wake up. Past Psychological History: Anxiety, Depression Smoking Status: Never smoker Past Alcohol Use History: None Reported Past Drug Use History: None Reported - Past Family History Father Additional Family Medical History / Comment(s): Patient's father at age 92 from CVA. He also had a degenerative muscle disorder. Mother Additional Family Medical History / Comment(s): Mother is alive at age 90 with no major medical problems. Brother(s) Additional Family Medical History / Comment(s): Patient is a total of 4 siblings with no major medical problems. Patient has one daughter with no major medical problems. General Exam Limitations: no limitations General appearance: alert Head exam: Present: atraumatic, normocephalic, normal inspection ENT exam: Present: mucous membranes dry Respiratory exam: Present: wheezes, accessory muscle use, decreased breath sounds Cardiovascular Exam: Present: regular rate, normal rhythm, normal heart sounds. Absent: systolic murmur, diastolic murmur, rubs, gallop, clicks GI/Abdominal exam: Present: soft, distended Extremities exam: Present: pedal edema Course Vital Signs 12/28/23 12/28/23 12/28/23 16:24 16:35 19:37 Temperature 97.2 F L 97.7 F Pulse Rate 77 72 Respiratory 18 20 14 Rate Blood Pressure 134/57 163/75 O2 Sat by Pulse 96 94 L Oximetry Medical Decision Making - Medical Decision Making Was pt. sent in by a medical professional or institution (JAKE Ellison, DERRICK OPERATOR, urgent care, hospital, or fpc...) When possible be specific @ -Patient was sent in from her supervisor tower Did you speak to anyone other than the patient for history (EMS, parent, family, police, friend...)? What history was obtained from this source @ -I spoke with the sister for history Did you review nursing and triage notes (agree or disagree)? Why? @ -I reviewed and agree with nursing and triage notes Were old charts reviewed (outside hosp., previous admission, EMS record, old EKG, old radiological studies, urgent care reports/EKG's, fpc records)? Report findings @ -I reviewed the patient's my chart from [facility] due to her recent hospitalization Differential Diagnosis (chest pain, altered mental status, abdominal pain women, abdominal pain men, vaginal bleeding, weakness, fever, dyspnea, syncope, headache, dizziness, GI bleed, back pain, seizure, CVA, palpatations, mental health, musculoskeletal)? @ -Differential Dyspnea: Coronary syndrome, arrhythmia, tamponade, asthma, COPD, pulmonary embolism, pneumonia, pneumothorax, pulmonary effusion, anaphylaxis, diabetic ketoacidosis, flailed chest, pulmonary contusion, diaphragmatic rupture, anemia, neuromuscular, this is not meant to be an all-inclusive list. EKG interpreted by me (3pts min.). @ -Yes and demonstrates sinus rhythm with a rate of 68. GA interval 190. QRS 99. QTc of 438. No acute ST segment elevations or depressions X-rays interpreted by me (1pt min.). @ -None done CT interpreted by me (1pt min.). @ -None done U/S interpreted by me (1pt. min.). @ -Yes and demonstrates pleural effusion What testing was considered but not performed or refused? (CT, X-rays, U/S, labs)? Why? @ -None What meds were considered but not given or refused? Why? @ -None Did you discuss the management of the patient with other professionals (vicenta angulo i.e. JAKE Ellison, DERRICK OPERATOR, lab, RT, psych nurse, social media campaign manager, charrer, teacher, special loan officer, continuous pillowcase cutter)? Give summary @ -Spoke with Hector from [facility] for admission Was smoking cessation discussed for >3mins.? @ -No Was critical care preformed (if so, how long)? @ -No Were there social determinants of health that impacted care today? How? (Homelessness, low income, unemployed, alcoholism, drug addiction, transportation, low edu. Level, literacy, decrease access to med. care, penitentiary, rehab)? @ -No Was there de-escalation of care discussed even if they declined (Discuss DNR or withdrawal of care, Hospice)? DNR status @ -No What co-morbidities impacted this encounter? (DM, HTN, Smoking, COPD, CAD, Cancer, CVA, ARF, Chemo, Hep., AIDS, mental health diagnosis, sleep apnea, morbid obesity)? @ -CVID, hypertension Was patient admitted / discharged? Hospital course, mention meds given and rou te, prescriptions, significant lab abnormalities, going to OR and other pertinent info. @ -Upon arrival patient seen and evaluated in room 1 thorough history and physical exam was performed. IV access was established. Laboratory studies are conducted. Ultrasound of the abdomen and chest was performed. Patient is given a dose of Bumex for IV. Recommended admission for thoracentesis. Patient was agreeable to this. Spoke with Evie from [facility] for admission Undiagnosed new problem with uncertain prognosis? @ -yes Drug Therapy requiring intensive monitoring for toxicity (Heparin, Nitro, Insul in, Cardizem)? @ -No Were any procedures done? @ -No Diagnosis/symptom? @ -Acute respiratory insufficiency, pleural effusion, abdominal ascites, end- stage liver disease Acute, or Chronic, or Acute on Chronic? @ -Acute on chronic Uncomplicated (without systemic symptoms) or Complicated (systemic symptoms)? @ -Complicated Side effects of treatment? @ -No Exacerbation, Progression, or Severe Exacerbation? @ -Yes Poses a threat to life or bodily function? How? (Chest pain, USA, VT, pneumonia, PE, COPD, DKA, ARF, appy, cholecystitis, CVA, Diverticulitis, Homicidal, Suicidal, threat to staff... and all critical care pts) @ -Yes as patient may succumb to her chronic liver failure - Lab Data Result diagrams: 12/29/23 08:22 01/01/24 10:30 Lab Results 12/28/23 12/28/23 12/28/23 Range/Units 17:10 17:10 17:10 WBC 3.4 L (3.8-10.6) k/uL RBC 4.21 (3.80-5.40) m/uL Hgb 12.1 (11.4-16.0) gm/dL Hct 36.9 (34.0-46.0) % MCV 87.6 (80.0-100.0) fL MCH 28.8 (25.0-35.0) pg MCHC 32.9 (31.0-37.0) g/dL RDW 20.3 H (11.5-15.5) % Plt Count 21 L (150-450) k/uL MPV 8.3 Neutrophils % 65 % Lymphocytes % 19 % Monocytes % 7 % Eosinophils % 6 % Basophils % 0 % Neutrophils # 2.2 (1.3-7.7) k/uL Lymphocytes # 0.7 L (1.0-4.8) k/uL Monocytes # 0.2 (0-1.0) k/uL Eosinophils # 0.2 (0-0.7) k/uL Basophils # 0.0 (0-0.2) k/uL Poikilocytosis Moderate Anisocytosis Moderate PT 11.9 (10.0-12.5) sec INR 1.1 (<1.2) APTT 27.4 (22.0-30.0) sec Sodium 137 (137-145) mmol/L Potassium 4.0 (3.5-5.1) mmol/L Chloride 105 (98-107) mmol/L Carbon Dioxide 22 (22-30) mmol/L Anion Gap 10 mmol/L BUN 64 H (7-17) mg/dL Creatinine 3.34 H (0.52-1.04) mg/dL Est GFR (CKD-EPI)AfAm 15 (>60 ml/min/1.73 sqM) Est GFR (CKD-EPI)NonAf 13 (>60 ml/min/1.73 sqM) Glucose 108 H (74-99) mg/dL Plasma Lactic Acid Duglas (0.7-2.0) mmol/L Calcium 9.2 (8.4-10.2) mg/dL Total Bilirubin 1.6 H (0.2-1.3) mg/dL AST 81 H (14-36) U/L ALT 90 H (4-34) U/L Alkaline Phosphatase 170 H (38-126) U/L Troponin I (0.000-0.034) ng/mL NT-Pro-B Natriuret Pep 1030 pg/mL Total Protein 5.4 L (6.3-8.2) g/dL Albumin 3.1 L (3.5-5.0) g/dL 12/28/23 12/28/23 Range/Units 17:10 17:10 WBC (3.8-10.6) k/uL RBC (3.80-5.40) m/uL Hgb (11.4-16.0) gm/dL Hct (34.0-46.0) % MCV (80.0-100.0) fL MCH (25.0-35.0) pg MCHC (31.0-37.0) g/dL RDW (11.5-15.5) % Plt Count (150-450) k/uL MPV Neutrophils % % Lymphocytes % % Monocytes % % Eosinophils % % Basophils % % Neutrophils # (1.3-7.7) k/uL Lymphocytes # (1.0-4.8) k/uL Monocytes # (0-1.0) k/uL Eosinophils # (0-0.7) k/uL Basophils # (0-0.2) k/uL Poikilocytosis Anisocytosis PT (10.0-12.5) sec INR (<1.2) APTT (22.0-30.0) sec Sodium (137-145) mmol/L Potassium (3.5-5.1) mmol/L Chloride (98-107) mmol/L Carbon Dioxide (22-30) mmol/L Anion Gap mmol/L BUN (7-17) mg/dL Creatinine (0.52-1.04) mg/dL Est GFR (CKD-EPI)AfAm (>60 ml/min/1.73 sqM) Est GFR (CKD-EPI)NonAf (>60 ml/min/1.73 sqM) Glucose (74-99) mg/dL Plasma Lactic Acid Duglas 1.7 (0.7-2.0) mmol/L Calcium (8.4-10.2) mg/dL Total Bilirubin (0.2-1.3) mg/dL AST (14-36) U/L ALT (4-34) U/L Alkaline Phosphatase (38-126) U/L Troponin I 0.086 H* (0.000-0.034) ng/mL NT-Pro-B Natriuret Pep pg/mL Total Protein (6.3-8.2) g/dL Albumin (3.5-5.0) g/dL Disposition Clinical Impression: Pleural effusion, Dyspnea, Common variable immunodeficiency, Chronic kidney disease, Pancytopenia Disposition: ADMITTED IP TO THIS HOSP Condition: Serious Is patient prescribed a controlled substance at d/c from ED?: No Time of Disposition: 19:29 Decision to Admit Reason: Admit from EC Decision Date: 12/28/23 Decision Time: 19:30
[2023-12-28 18:26] LABS: Platelet Count 21 k/uL (150-450)
[2023-12-28] MEDS ORDERED: NALOXONE 0.4 MG/ML 1 ML VIAL IV PRN (19:31)
[2023-12-28] MEDS: ALPRAZolam 1 MG TAB PO PRN (21:45)
--- NOTE | 2023-12-28 22:15 | US ---
EXAMINATION TYPE: US chest DATE OF EXAM: 12/28/2023 COMPARISON: NONE CLINICAL INDICATION: Female, 73 years old with history of pleural effusion; SOB, patient had thoracen tesis done at [facility] 2 days prior, 2L drained TECHNIQUE: Grayscale imaging of the chest. Targeted ultrasound of the posterior lower chest bilatera lly FINDINGS: EXAM MEASUREMENTS: Right Pleural Effusion pocket size: 13 cm Right skin surface to fluid distance: 3.1 cm Left Pleural Effusion pocket size: 2.5 cm Right side marked for possible thoracentesis outside the dept. Left side NOT marked Pulmonologists are able to review the images in the patient?s EMR. IMPRESSIONS: A right pleural effusion, pocket size 13 cm is identified and marked for possible thoracentesis outsi de the department. A smaller left pleural effusion was not marked. [facility], , 12/28/2023 10:13 PM
--- NOTE | 2023-12-29 01:18 | P.CNPUL ---
History of Present Illness Consult date: 12/29/23 Requesting physician: Kasey Garcia Reason for consult: other (Recurrent right-sided pleural effusion) Chief complaint: Shortness of breath on exertion and when laying flat History of present illness: Patient is a 73-year-old female with past medical history significant for common variable immunodeficiency, liver cirrhosis, ascites, TIPS procedure, and recurrent right-sided pleural effusion. Patient was seen at our facility in October, during downtime, she did undergo right-sided thoracentesis at that time. Fluid cytology negative for malignant cells. As reported above, patient does have liver cirrhosis and history of ascites with frequent paracentesis status post TIPS procedure. She does follow at the [facility]. Of note, patient had a recent hospitalization at [facility] last week. She reportedly underwent right-sided thoracentesis outside. She believes a total of 2 L was drained. Discharged from the outside facility on December 16, with directions to follow-up with Dr. Lance. Chest x-ray done in the office showing a large right-sided pleural effusion. CBC: WBC count 3.4, hemoglobin 12.1, hematocrit 36.9, platelets 21,000. Coagulation profile: PT 11.9, INR 1.1, APTT 27.4. CMP: Sodium 137, potassium 4, chloride 105, serum bic arb 22, BUN 64, creatinine 3.34, glucose 108. AST 81, ALT 90, ALP 170. Troponin 0.086. NT proBNP 1030. EKG: Normal sinus rhythm, rate 68 bpm, no acute ischemic changes. She is currently sitting at the edge of the bed, on room air, she has some conversational dyspnea speaking in long sentences. Does endorse dyspnea, especially on exertion. Also, reports orthopnea. She has severe bilateral lower extremity weeping edema. She does take Bumex on an outpatient basis, which she recently stopped yesterday due to nausea. She denies any fevers, significant cough, chest pain, sputum production or hemoptysis. Abdomen not particular distended at this time. No abdominal pain. Last required paracentesis was reportedly May,. Review of Systems Constitutional: Denies chills, Denies fever, Denies poor appetite, Denies weight gain, Denies weight loss Ears, nose, mouth and throat: Denies headache, Denies nasal congestion, Denies nasal discharge, Denies post-nasal drip, Denies sinus pain, Denies sinus pressure, Denies sore throat Cardiovascular: Reports dyspnea on exertion, Reports leg edema, Reports orthopnea, Denies chest pain, Denies palpitations, Denies paroxysmal nocturnal dyspnea, Denies syncope Respiratory: Reports as per HPI Gastrointestinal: Reports loss of appetite, Reports nausea, Denies abdominal pain, Denies change in bowel habits, Denies constipation, Denies diarrhea, Denies vomiting Genitourinary: Denies dysuria Musculoskeletal: Denies limitation of motion Integumentary: Reports lesions Neurological: Denies headaches, Denies seizures, Denies syncope Psychiatric: Denies anxiety, Denies depression Past Medical History Past Medical History: GERD/Reflux, Hypertension, Liver Disease, Renal Disease Additional Past Medical History / Comment(s): immunodeficiency History of Any Multi-Drug Resistant Organisms: MRSA Date of last positivie culture/infection: 08/23/2009 MDRO Source:: open wound bilateral arms healed Past Surgical History: Hysterectomy Additional Past Surgical History / Comment(s): common variable immune deficicency, multiple paracentesis last in may 2023, colonoscopy with polyp removal, TIPS Jan 2023, thoracentesis Dec 2023 Past Anesthesia/Blood Transfusion Reactions: No Reported Reaction Additional Past Anesthesia/Blood Transfusion Reaction / Comment(s): Slow to wake up. Past Psychological History: Anxiety, Depression Smoking Status: Never smoker Past Alcohol Use History: None Reported Additional Past Alcohol Use History / Comment(s): She denies any alcohol use, marijuana or illicit drug use. She is and lives at home with her . She retired in 2017 from [employer]. Past Drug Use History: None Reported - Past Family History Father Additional Family Medical History / Comment(s): Patient's father at age 92 from CVA. He also had a degenerative muscle disorder. Mother Additional Family Medical History / Comment(s): Mother is alive at age 90 with no major medical problems. Brother(s) Additional Family Medical History / Comment(s): Patient is a total of 4 siblings with no major medical problems. Patient has one daughter with no major medical problems. Medications and Allergies Home Medications Medication Instructions Recorded Confirmed Type traMADol HCL 50 mg PO BID PRN 08/29/19 12/28/23 History Immun Glob G(IgG)/Pro/Iga 0-50 1 dose IV FR 08/12/23 12/28/23 History [Hizentra 10 Gram/50 ml Syringe] ALPRAZolam [Xanax] 1 mg PO BID PRN 12/28/23 12/28/23 History Aspirin EC [Ecotrin Low Dose] 81 mg PO DAILY 12/28/23 12/28/23 History Bumetanide [Bumex] 1 mg PO DAILY 12/28/23 12/28/23 History Spironolactone [Aldactone] 25 mg PO DAILY 12/28/23 12/28/23 History Allergies Allergy/AdvReac Type Severity Reaction Status Date / Time sulfamethoxazole Allergy Unknown, Verified 12/28/23 17: [From Bactrim] family allergy trimethoprim [From Bactrim] Allergy Unknown, Verified 12/28/23 17: family allergy spironolactone AdvReac Unknown Rash/Hives Verified 12/28/23 17:24 [From Aldactone] furosemide [From Lasix] AdvReac Rash/Hives Verified 12/28/23 17:24 Physical Exam Vitals: Vital Signs Temp Pulse Pulse Resp BP BP Pulse Ox 12/29/23 00:00 97.7 F 85 25 H 142/69 92 L 12/28/23 21:56 156/72 12/28/23 21:15 98.1 F 76 16 184/66 95 12/28/23 19:37 97.7 F 72 14 163/75 94 L 12/28/23 16:35 20 12/28/23 16:24 97.2 F L 77 18 134/57 96 Intake and Output 12/28/23 12/28/23 12/29/23 14:59 22:59 06:59 Other: Voiding Method Toilet Weight 72.121 kg GENERAL EXAM: Alert, 73-year-old white female, sitting at the edge of the bed, on room air, minimal conversational dyspnea, comfortable in no apparent distress. HEAD: Normocephalic and atraumatic EYES: Normal reaction of pupils, equal size. NOSE: Clear with pink turbinates. THROAT: No erythema or exudates. NECK: No masses, no JVD. CHEST: No chest wall deformity. LUNGS: Equal air entry with markedly diminished lung sounds at the right base. No crackles, wheeze, rhonchi or dullness. On room air. Minimal conversational dyspnea at rest. Orthopnea observed when laying down for examination CVS: S1 and S2 normal with no grade 2 systolic murmur, regular rhythm. No extra heart sounds ABDOMEN: Abdomen not particularly distended, active bowel sounds, no hepatosplenomegaly, no guarding or rigidity. SPINE: No scoliosis or deformity SKIN: Shallow venous stasis ulcer on the right lower extremity draining serous fluid CENTRAL NERVOUS SYSTEM: No focal deficits, tone is normal in all 4 extremities. EXTREMITIES: There severe bilateral lower extremity weeping edema. No clubbing, or cyanosis. Peripheral pulses are intact. Results - Laboratory Findings CBC and BMP: 12/28/23 17:10 12/29/23 08:22 PT/INR, D-dimer PT 11.9 sec (10.0-12.5) 12/28/23 17:10 INR 1.1 (<1.2) 12/28/23 17:10 Abnormal lab findings: Abnormal Labs 12/28/23 12/28/23 12/28/23 17:10 17:10 17:10 WBC 3.4 L RDW 20.3 H Plt Count 21 L Lymphocytes # 0.7 L BUN 64 H Creatinine 3.34 H Glucose 108 H Total Bilirubin 1.6 H AST 81 H ALT 90 H Alkaline Phosphatase 170 H Troponin I 0.086 H* Total Protein 5.4 L Albumin 3.1 L - Diagnostic Findings Chest x-ray: image reviewed Assessment and Plan Assessment: Recurrent right-sided pleural effusion, likely hepatic hydrothorax. Patient did previously have a right-sided thoracentesis done at our facility during downtime in October,; pleural fluid cytologically negative for malignant cells. Other fluid studies are not available to me. Last week, patient underwent a repeat right-sided thoracentesis at outside facility, and now returns with worsening shortness of breath and a recurrent large right-sided pleural effusion. Acute dyspnea, secondary to above History of liver cirrhosis and abdominal ascites, status post TIPS procedure Chronic thrombocytopenia, likely secondary to above Bilateral lower extremity edema Elevated troponins, likely supply/demand related Acute on chronic kidney disease, likely hepatorenal syndrome History of common variable immunodeficiency, receives IgG Plan: Patient's medications, labs, chest x-ray reviewed on room air Patient has a recurrent right-sided pleural effusion Chest ultrasound demonstrating a 13 cm fluid pocket Platelets 21,000 Not on any anticoagulants Patient will likely require right-sided thoracentesis; although, may be candidate for Pleurx catheter. This will be discussed with Dr. Chester. Abdominal ultrasound was also ordered and is pending, not likely enough fluid for paracentesis. 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 Number of minutes spent on the visit:20 Joint evaluation that was done along with the nurse practitioner. This is a 73-year-old female patient with recurrent right-sided pleural effusion and hepatic hydrothorax. The patient was sent over to the hospital because of worsening shortness of breath. Her last thoracentesis was done approximately a week ago at [facility]. There is a large right-sided pleural effusion on the chest x-ray and based on that, bedside thoracentesis was done this morning and a total of 1.7 L of pleural fluid was aspirated without any complications. Patient currently is on room air oxygen. Monitor renal function. Monitor respiratory status. Continue Aldactone. Will follow. Evaluation was done more than 30 minutes. Time with Patient: Greater than 30
[2023-12-29] MEDS: BUMETANIDE 0.25 MG/ML 4 ML VIAL IVP STA (02:15)
--- NOTE | 2023-12-29 06:11 | US ---
EXAMINATION TYPE: US abdomen limited DATE OF EXAM: 12/28/2023 COMPARISON: NONE CLINICAL INDICATION: Female, 73 years old with history of abd fluid for paracentesis; h/o ascites, TI PS procedure done months ago All four quadrants scanned. Mild fluid noted within RUQ only. IMPRESSION: Mild fluid in the right upper quadrant only. [facility], , 12/29/2023 6:09 AM
[2023-12-29 08:57] LABS: African American GFR (CKD) 16 (>60 ml/min/1.73 sqM); Anion Gap 10 mmol/L; Anisocytosis Moderate; Basophils % (A) 1 %; Blood Urea Nitrogen 68 mg/dL (7-17); Calcium 8.8 mg/dL (8.4-10.2); Carbon Dioxide 19 mmol/L (22-30); Chloride 108 mmol/L (98-107); Eosinophils # (A) 0.2 k/uL (0-0.7); Eosinophils % (A) 7 %; Glucose 70 mg/dL (74-99); HCT 35.8 % (34.0-46.0); HGB 11.9 gm/dL (11.4-16.0); Hypochromasia Slight; Lymphocytes # (A) 0.7 k/uL (1.0-4.8); Lymphocytes % (A) 22 %; MCH 29.6 pg (25.0-35.0); MCHC 33.3 g/dL (31.0-37.0); MCV 88.8 fL (80.0-100.0); Mean Platelet Volume 8.1; Monocytes # (A) 0.3 k/uL (0-1.0); Monocytes % (A) 9 %; Neutrophils % (A) 58 %; Non-African American GFR(CKD) 14 (>60 ml/min/1.73 sqM); Poikilocytosis Moderate; Potassium 4.1 mmol/L (3.5-5.1); RBC 4.03 m/uL (3.80-5.40); RDW 20.4 % (11.5-15.5); Sodium 137 mmol/L (137-145); WBC 3.4 k/uL (3.8-10.6)
--- NOTE | 2023-12-29 09:11 | XR ---
EXAMINATION TYPE: XR chest 1V portable DATE OF EXAM: 12/29/2023 COMPARISON: 11/05/2023 HISTORY: Postthoracentesis TECHNIQUE: Single frontal view of the chest is obtained. FINDINGS: No sizable pneumothorax. Bilateral patchy infiltrate and small right pleural effusion. Hea rt size stable. Osseous structures intact. IMPRESSION: 1. No pneumothorax. 2. Patchy bilateral infiltrate and small right pleural effusion. Correlate for mild venous congestion . [facility], , 12/29/2023 9:08 AM
--- NOTE | 2023-12-29 09:17 | P.PCN ---
Date of Procedure: 12/29/23 Preoperative Diagnosis: Right-sided pleural effusion Postoperative Diagnosis: Right-sided pleural effusion Procedure(s) Performed: Right-sided thoracentesis Anesthesia: local Surgeon: Soledad Chester Estimated Blood Loss (ml): 0 Pathology: none sent Condition: stable Disposition: floor Operative Findings: A time out was performed and the chest x-ray was reviewed, the appropriate side was confirmed and marked. My hands were washed immediately prior to the procedure. I wore a surgical cap, mask with protective eyewear, sterile gown and sterile gloves throughout the procedure. The patient was prepped and draped in a sterile manner using chlorhexidine scrub after the appropriate level was percussed and confirmed by ultrasound. 1% lidocaine was used to anesthesize the skin, subcutaneous tissue, superior aspect of the rib periosteum and parietal pleura. A finder needle was then introduced over the superior aspect of the rib to locate the pleural fluid; 2colored fluid was aspirated at a depth of approximately 2 cm. A 10-blade scalpel was used to myesha the skin at the inse rtion site. The [id number] needle was then introduced through the skin incision into the pleural space using negative aspiration pressure and the red colometric indicator to confirm appropriate positioning of the needle. The thoracentesis catheter was then threaded without difficulty. 1700 ml of turbid colored fluid was removed without difficulty. The catheter was then removed. No immediate complications were noted during the procedure. A post-procedure chest x-ray is pending at the time of this note. The fluid will not be sent for studies. Estimated blood loss is 0cc
[2023-12-29] MEDS: ASPIRIN 81 MG PO SCH (09:20)
[2023-12-29] MEDS: SPIRONOLACTONE 25 MG TAB PO SCH (09:20)
[2023-12-29 09:23] LABS: Platelet Count 25 k/uL (150-450)
--- NOTE | 2023-12-29 11:12 | P.HPIM ---
History of Present Illness This is a pleasant 73 years old female with past medical history of multiple medical problems as below including liver disease, hypertension, GERD Also she has chronic kidney disease. She presents because of worsening dyspnea and leg swelling x 1 week. Patient states that her she had some diarrhea for about 8 days and that is why she stopped taking Lasix. Her diarrhea stopped and her last bowel movement was 2 days ago but presents because of worsening respiratory symptoms. Patient has 3+ bilateral pitting leg edema She denies any other specific complaint. When I saw the patient she was already had thoracocentesis where 1.7 L taken out from her right side she has chest x- ray showing recurrent right pleural effusion. She denies chest pain. No coughing. She is walking in the room by herself No current GI or urinary symptoms. No headache dizziness weakness numbness However she has poor appetite She has some superficial ulcers in the right leg posteriorly, no signs of infection no cellulitis no purulent discharge Vitals are stable afebrile Labs showing platelet count 21, today improved 25 with baseline 40-60 Creatinine also worsening from baseline of 2.2, this admission was 3.3. Liver enzymes mildly elevated INR and urine analysis were unremarkable proBNP slightly elevated at 1030 Ejection fraction is 60 to 65% on 05/2023 EKG showing sinus rhythm at [address]-T changes Chest ultrasound reviewed showing pleural effusion 13 cm Review of Systems Review of systems CONSTITUTIONAL: No fever, no malaise, no fatigue. HEENT: No recent visual problems or hearing problems. Denied any sore throat. CARDIOVASCULAR: No orthopnea, PND, no palpitations, no syncope. PULMONARY: No s chest wall tenderness no hemoptysis. GASTROINTESTINAL: No diarrhea, no nausea, no vomiting, no abdominal pain. Normoactive bowel sounds. NEUROLOGICAL: No headaches, no weakness, no numbness. HEMATOLOGICAL: Denies any bleeding or petechiae. GENITOURINARY: Denies any burning micturition, frequency, or urgency. MUSCULOSKELETAL/RHEUMATOLOGICAL: Denies any joint pain, swelling, or any muscle pain. ENDOCRINE: Denies any polyuria or polydipsia. Past Medical History Past Medical History: GERD/Reflux, Hypertension, Liver Disease, Renal Disease Additional Past Medical History / Comment(s): immunodeficiency History of Any Multi-Drug Resistant Organisms: MRSA Date of last positivie culture/infection: 08/23/2009 MDRO Source:: open wound bilateral arms healed Past Surgical History: Hysterectomy Additional Past Surgical History / Comment(s): common variable immune deficicency, multiple paracentesis last in may 2023, colonoscopy with polyp removal, TIPS Jan 2023, thoracentesis Dec 2023 Past Anesthesia/Blood Transfusion Reactions: No Reported Reaction Additional Past Anesthesia/Blood Transfusion Reaction / Comment(s): Slow to wake up. Past Psychological History: Anxiety, Depression Smoking Status: Never smoker Past Alcohol Use History: None Reported Additional Past Alcohol Use History / Comment(s): She denies any alcohol use, marijuana or illicit drug use. She is and lives at home with her . She retired in 2017 from [employer]. Past Drug Use History: None Reported - Past Family History Father Additional Family Medical History / Comment(s): Patient's father at age 92 from CVA. He also had a degenerative muscle disorder. Mother Additional Family Medical History / Comment(s): Mother is alive at age 90 with no major medical problems. Brother(s) Additional Family Medical History / Comment(s): Patient is a total of 4 siblings with no major medical problems. Patient has one daughter with no major medical problems. Medications and Allergies Home Medications Medication Instructions Recorded Confirmed Type traMADol HCL 50 mg PO BID PRN 08/29/19 12/28/23 History Immun Glob G(IgG)/Pro/Iga 0-50 1 dose IV FR 08/12/23 12/28/23 History [Hizentra 10 Gram/50 ml Syringe] ALPRAZolam [Xanax] 1 mg PO BID PRN 12/28/23 12/28/23 History Aspirin EC [Ecotrin Low Dose] 81 mg PO DAILY 12/28/23 12/28/23 History Bumetanide [Bumex] 1 mg PO DAILY 12/28/23 12/28/23 History Spironolactone [Aldactone] 25 mg PO DAILY 12/28/23 12/28/23 History Allergies Allergy/AdvReac Type Severity Reaction Status Date / Time sulfamethoxazole Allergy Unknown, Verified 12/28/23 17:24 [From Bactrim] family allergy trimethoprim [From Bactrim] Allergy Unknown, Verified 12/28/23 17:24 family allergy spironolactone AdvReac Unknown Rash/Hives Verified 12/28/23 17:24 [From Aldactone] furosemide [From Lasix] AdvReac Rash/Hives Verified 12/28/23 17:24 Physical Exam Vitals: Vital Signs Temp Pulse Pulse Resp BP BP Pulse Ox 12/29/23 04:00 80 22 139/71 93 L 12/29/23 00:00 97.7 F 85 25 H 142/69 92 L 12/28/23 21:56 156/72 12/28/23 21:15 98.1 F 76 16 184/66 95 12/28/23 19:37 97.7 F 72 14 163/75 94 L 12/28/23 16:35 20 12/28/23 16:24 97.2 F L 77 18 134/57 96 Intake and Output 12/28/23 12/28/23 12/29/23 14:59 22:59 06:59 Output Total 200 Balance -200 Output: Urine 200 Other: Voiding Method Toilet Toilet Weight 72.121 kg 73.2 kg GENERAL: The patient is alert and oriented x3, not in any acute distress. Well developed, well nourished. HEENT: Pupils are round and equally reacting to light. EOMI. No scleral icterus. No conjunctival pallor. Normocephalic, atraumatic. No pharyngeal erythema. No thyromegaly. CARDIOVASCULAR: S1 and S2 present. No murmurs, rubs, or gallops. PULMONARY: Chest is clear to auscultation, no wheezing , no crackles. ABDOMEN: Soft, nontender, nondistended, normoactive bowel sounds. No palpable organomegaly. MUSCULOSKELETAL: No joint swelling or deformity. -EXTREMITIES: No cyanosis, clubbing,. Bilateral 3+ pitting leg edema.. Superfi cial ulcers mostly desquamation in the posterior right leg inferiorly NEUROLOGICAL: Gross neurological examination did not reveal any focal deficits. SKIN: No rashes. no petechiae. Results CBC & Chem 7: 12/29/23 08:22 12/29/23 08:22 Labs: Abnormal Lab Results - Last 24 Hours (Table) 12/28/23 12/28/23 12/28/23 Range/Units 17:10 17:10 17:10 WBC 3.4 L (3.8-10.6) k/uL RDW 20.3 H (11.5-15.5) % Plt Count 21 L (150-450) k/uL Lymphocytes # 0.7 L (1.0-4.8) k/uL BUN 64 H (7-17) mg/dL Creatinine 3.34 H (0.52-1.04) mg/dL Glucose 108 H (74-99) mg/dL Total Bilirubin 1.6 H (0.2-1.3) mg/dL AST 81 H (14-36) U/L ALT 90 H (4-34) U/L Alkaline Phosphatase 170 H (38-126) U/L Troponin I 0.086 H* (0.000-0.034) ng/mL Total Protein 5.4 L (6.3-8.2) g/dL Albumin 3.1 L (3.5-5.0) g/dL Thrombosis Risk Factor Assmnt - Choose All That Apply Any of the Below Risk Factors Present?: No Other Risk Factors: Yes Each Risk Factor Represents 2 Points: Age 61-74 years Other congenital or acquired thrombophilia - If yes, enter type in comment: No Thrombosis Risk Factor Assessment Total Risk Factor Score: 2 Thrombosis Risk Factor Assessment Level: Low Risk Assessment and Plan Assessment: Recurrent right pleural effusion s/p thoracocentesis on 12/28 where 1.7 L taken out Acute on chronic CKD stage IV Acute on chronic thrombocytopenia Elevated troponin, mild most likely secondary to renal disease and heart failure, no evidence of chest pain or non-STEMI, no EKG changes. Mild transaminitis CHF with preserved ejection fraction Hypertension History of liver disease History of GERD Plan: Pulmonary team evaluated the patient. Patient underwent thoracocentesis today. Will continue monitoring Also kidney disease specialist was consulted for her worsening kidney function. Monitor platelet count. Wound consult Labs and medication were reviewed.. Continue same treatment. Continue with symptomatic treatment. Resume home medication. Monitor labs and vitals. DVT and GI prophylaxis. Further recommendations as per clinical course of the patient DVT prophylaxis: Subcutaneous heparin GI Prophylaxis: Pepcid PT/OT: Pending Prognosis is guarded
--- NOTE | 2023-12-29 13:09 | P.NPCON ---
History of Present Illness - Reason for Consult acute renal failure - History of Present Illness patient is a 73-year-old female with history of chronic kidney disease NKF stage IV who follows at [facility]. Baseline creatinine has been around 2-2.2 mg/dL. Patient is admitted to the hospital with complaints of shortness of breath. She has had recurrent right pleural effusion with previous thoracentesis. Patient had thoracentesis this morning with 1700 mL of fluid removed. underlying history of liver cirrhosis status post TIPS procedure. Serum creatinine was elevated at 3.3 mg/dL this admission. Blood pressure was not low. Patient states she has been voiding but small amounts. Bumex was discontinued this morning. Patient has had chronic lower extremity swelling which she says is currently stable. No history of fever chills nausea vomiting abdominal pain or diarrhea. Past Medical History Past Medical History: GERD/Reflux, Hypertension, Liver Disease, Renal Disease Additional Past Medical History / Comment(s): immunodeficiency History of Any Multi-Drug Resistant Organisms: MRSA Date of last positivie culture/infection: 08/23/2009 MDRO Source:: open wound bilateral arms healed Past Surgical History: Hysterectomy Additional Past Surgical History / Comment(s): common variable immune deficicency, multiple paracentesis last in may 2023, colonoscopy with polyp removal, TIPS Jan 2023, thoracentesis Dec 2023 Past Anesthesia/Blood Transfusion Reactions: No Reported Reaction Additional Past Anesthesia/Blood Transfusion Reaction / Comment(s): Slow to wake up. Past Psychological History: Anxiety, Depression Smoking Status: Never smoker Past Alcohol Use History: None Reported Additional Past Alcohol Use History / Comment(s): She denies any alcohol use, marijuana or illicit drug use. She is and lives at home with her . She retired in 2017 from [employer]. Past Drug Use History: None Reported - Past Family History Father Additional Family Medical History / Comment(s): Patient's father at age 92 from CVA. He also had a degenerative muscle disorder. Mother Additional Family Medical History / Comment(s): Mother is alive at age 90 with no major medical problems. Brother(s) Additional Family Medical History / Comment(s): Patient is a total of 4 siblings with no major medical problems. Patient has one daughter with no major medical problems. Medications and Allergies Home Medications Medication Instructions Recorded Confirmed Type traMADol HCL 50 mg PO BID PRN 06/15/20 10/14/24 History Immun Glob G(IgG)/Pro/Iga 0-50 1 dose IV FR 08/12/23 12/28/23 History [Hizentra 10 Gram/50 ml Syringe] ALPRAZolam [Xanax] 1 mg PO BID PRN 12/28/23 12/28/23 History Aspirin EC [Ecotrin Low Dose] 81 mg PO DAILY 12/28/23 12/28/23 History Bumetanide [Bumex] 1 mg PO DAILY 12/28/23 12/28/23 History Spironolactone [Aldactone] 25 mg PO DAILY 12/28/23 12/28/23 History Allergies Allergy/AdvReac Type Severity Reaction Status Date / Time sulfamethoxazole Allergy Unknown, Verified 12/28/23 17:24 [From Bactrim] family allergy trimethoprim [From Bactrim] Allergy Unknown, Verified 12/28/23 17:24 family allergy spironolactone AdvReac Unknown Rash/Hives Verified 12/28/23 17:24 [From Aldactone] furosemide [From Lasix] AdvReac Rash/Hives Verified 12/28/23 17:24 Physical Exam Vitals: Vital Signs Temp Pulse Pulse Resp BP BP Pulse Ox 12/29/23 10:56 97.8 F 85 108/61 98 12/29/23 09:45 97.4 F L 89 129/59 99 12/29/23 09:30 97.5 F L 87 138/62 97 12/29/23 09:15 96.3 F L 87 125/56 99 12/29/23 09:00 97.5 F L 89 117/54 97 12/29/23 08:00 80 20 12/29/23 07:43 97.4 F L 80 132/65 95 12/29/23 04:00 80 22 139/71 93 L 12/29/23 00:00 97.7 F 85 25 H 142/69 92 L 12/28/23 21:56 156/72 12/28/23 21:15 98.1 F 76 16 184/66 95 12/28/23 19:37 97.7 F 72 14 163/75 94 L 12/28/23 16:35 20 12/28/23 16:24 97.2 F L 77 18 134/57 96 Intake and Output 10/14/24 10/15/24 10/15/24 22:59 06:59 14:59 Output Total 200 1900 Balance -200 -1900 Output: Urine 200 Other 1900 Other: Voiding Method Toilet Toilet Toilet Weight 72.121 kg 73.2 kg patient is awake, comfortable, alert oriented 3. No acute distress. Examination of the heart S1 and S2 Examination of the lungs bilateral breath sounds are heard with decreased breath sounds on the right side Abdomen is soft distended nontender Examination of lower extremity shows edema 2+ bilaterally both legs are wrapped. PRODUCT MARKETING EXECUTIVE exam grossly intact Results - Lab Results Most recent lab results Calcium 8.8 mg/dL (8.4-10.2) 12/29/23 08:22 12/29/23 08:22 12/29/23 08:22 Assessment and Plan Assessment: 1. Acute kidney injury, ATN,versus hepatorenal syndrome. Check UA. Check ultrasound of the kidneys. Bumex has been discontinued. 2. Chronic kidney disease NKF stage IV with baseline creatinine around 2-2.2 mg/dL being followed at [facility] 3. Recurrent right pleural effusion status post thoracentesis this morning off 1700 ML of fluid. 4. History of liver cirrhosis status [facility]. Chronic thrombocytopenia Plan: continue off of diuretics. Add Sandostatin check ultrasound of the kidneys Accurate I's and O's add midodrine Repeat labs in a.m. Briefly discussed renal replacement therapy is renal function continues to worsen. Thank you for the consultation. We will continue to follow the patient with you during her hospitalization
--- NOTE | 2023-12-29 14:47 | US ---
EXAMINATION TYPE: US kidneys/renal and bladder DATE OF EXAM: 12/29/2023 COMPARISON: 05/26/23 CLINICAL INDICATION: Female, 73 years old with history of timmy; timmy TECHNIQUE: Grayscale and color Doppler imaging of the bilateral kidneys and urinary bladder: FINDINGS: EXAM MEASUREMENTS: Right Kidney: 8.6 x 4.4 x 4.4 cm Left Kidney: 8.2 x 3.7 x 3.7 cm Right Kidney: No hydronephrosis or masses seen Left Kidney: No hydronephrosis or masses seen Bladder: not seen due to bowel and pt emptying minutes before exam There is no evidence for hydronephrosis. No nephrolithiasis is seen. No masses are identified. Sma ll amount of ascites.. Renal cortical thickness and echogenicity maintained. IMPRESSION: No hydronephrosis or nephrolithiasis. [facility], , 12/29/2023 2:44 PM
[2023-12-29] MEDS: MIDODRINE 5 MG TAB PO SCH (16:45)
[2023-12-29] MEDS: OCTREOTIDE 100 MCG/ML INJ SQ SCH (17:31)
[2023-12-30 10:52] LABS: African American GFR (CKD) 15 (>60 ml/min/1.73 sqM); Anion Gap 9 mmol/L; Blood Urea Nitrogen 68 mg/dL (7-17); Calcium 8.3 mg/dL (8.4-10.2); Carbon Dioxide 22 mmol/L (22-30); Chloride 105 mmol/L (98-107); Glucose 94 mg/dL (74-99); Non-African American GFR(CKD) 13 (>60 ml/min/1.73 sqM); Potassium 3.9 mmol/L (3.5-5.1); Sodium 136 mmol/L (137-145)
--- NOTE | 2023-12-30 12:58 | P.PN ---
Subjective patient is seen for follow-up for acute kidney injury. Urine output not charted. Overall feels better. No complaints of shortness of breath. Serum creatinine increased to 3.4 today. Patient was started on Sandostatin for possible hepatorenal syndrome. Also maintained on midodrine. Objective - Vital Signs Vital signs: Vital Signs Temp 98 F 12/30/23 10:50 Pulse 72 12/30/23 10:50 Resp 16 12/30/23 04:00 BP 113/62 12/30/23 10:50 Pulse Ox 95 12/30/23 10:50 FiO2 Intake & Output 12/29/23 12/30/23 12/30/23 18:59 06:59 18:59 Intake Total 236 240 Output Total 1900 Balance -1664 240 Weight 70.1 kg Intake: Oral 236 240 Output: Other 1900 Other: Voiding Method Toilet Toilet Toilet - Exam patient is awake, comfortable, alert oriented 3. No acute distress. Examination of the heart S1 and S2 Examination of the lungs bilateral breath sounds are heard with decreased breath sounds on the right side Abdomen is soft distended nontender Examination of lower extremity shows edema 2-3+ bilaterally both legs are wrapped. SENIOR SHIPPING CLERK exam grossly intact - Labs CBC & Chem 7: 12/29/23 08:22 12/30/23 10:08 Labs: Abnormal Lab Results - Last 24 Hours (Table) 12/30/23 Range/Units 10:08 Sodium 136 L (137-145) mmol/L BUN 68 H (7-17) mg/dL Creatinine 3.47 H (0.52-1.04) mg/dL Calcium 8.3 L (8.4-10.2) mg/dL Assessment and Plan Assessment: 1. Acute kidney injury, ATN,versus hepatorenal syndrome. Check UA. no obstruction noted on ultrasound of the kidneys. Bumex has been discontinued. 2. Chronic kidney disease NKF stage IV with baseline creatinine around 2-2.2 mg/dL being followed at [facility] 3. Recurrent right pleural effusion status post thoracentesis this morning off 1700 ML of fluid. 4. History of liver cirrhosis status post TIPS procedure at [facility] 5. Chronic thrombocytopenia Plan: continue off of diuretics. continue Sandostatin IV albumin 1 Accurate I's and O's continue midodrine midodrine Repeat labs in a.m. Briefly discussed renal replacement therapy is renal function continues to wors en.
[2023-12-30] MEDS: ALBUMIN HUMAN 25% 50 ML in EMPTY BAG 1 BAG IVPB ONE (16:55)
[2023-12-30] MEDS: MIDODRINE 5 MG TAB PO SCH (18:19)
[2023-12-30 19:24] LABS: Appearance,Urine Cloudy (Clear); Bacteria,Urine Rare /hpf; Bilirubin,Urine Negative (Negative); Blood,Urine Small (Negative); Color,Urine Yellow; Glucose,Urine (UA) Negative (Negative); Ketones,Urine Negative (Negative); Leukocyte Esterase,Urine Large (Negative); Mucus,Urine Rare /hpf; Nitrite,Urine Negative (Negative); PH, Urine 5.5 (5.0-8.0); Protein,Urine Negative (Negative); RBC,Urine 4 /hpf (0-5); Specific Gravity,Urine 1.016 (1.001-1.035); Squamous Epithelial Cell,Urine 7 /hpf (0-4); Urobilinogen,Urine <2.0 mg/dL (<2.0); WBC,Urine 5 /hpf (0-5)
--- NOTE | 2023-12-30 22:27 | P.PN ---
Subjective This is a pleasant 73 years old female with past medical history of multiple medical problems as below including liver disease, hypertension, GERD Also she has chronic kidney disease. She presents because of worsening dyspnea and leg swelling x 1 week. Patient states that her she had some diarrhea for about 8 days and that is why she stopped taking Lasix. Her diarrhea stopped and her last bowel movement was 2 days ago but presents because of worsening respiratory symptoms. Patient has 3+ bilateral pitting leg edema She denies any other specific complaint. When I saw the patient she was already had thoracocentesis where 1.7 L taken out from her right side she has chest x- ray showing recurrent right pleural effusion. She denies chest pain. No coughing. She is walking in the room by herself No current GI or urinary symptoms. No headache dizziness weakness numbness However she has poor appetite She has some superficial ulcers in the right leg posteriorly, no signs of infection no cellulitis no purulent discharge Vitals are stable afebrile Labs showing platelet count 21, today improved 25 with baseline 40-60 Creatinine also worsening from baseline of 2.2, this admission was 3.3. Liver enzymes mildly elevated INR and urine analysis were unremarkable proBNP slightly elevated at 1030 Ejection fraction is 60 to 65% on 05/2023 EKG showing sinus rhythm at [address]-T changes Chest ultrasound reviewed showing pleural effusion 13 cm 12/29 Patient feels better She still have low appetite Her kidney function worsening slightly to 3.4 and patient was started on midodrine small dose 2.5 mg, one-time dose of albumin IV given and started on octreotide 100 mg 3 times daily for suspicion of hepatorenal syndrome as patient has a history of cirrhosis S/p thoracocentesis and breathing is improved. Will monitor platelet count liver enzymes and check labs in the morning Renal ultrasound reviewed showing no hydronephrosis no kidney stone Bumex remains on hold. Active Medications Generic Name Dose Route Start Last Admin Trade Name Freq PRN Reason Stop Dose Admin Alprazolam 1 mg 12/28/23 21:35 12/30/23 20:57 Alprazolam 1 Mg Tab PO 1 mg BID PRN Administration Anxiety Aspirin 81 mg 12/29/23 09:00 12/30/23 09:26 Aspirin 81 Mg PO 81 mg DAILY HELLEN Administration Midodrine 2.5 mg 12/30/23 17:30 10/16/24 18:19 Midodrine 5 Mg Tab PO Not Given AC-TID HELLEN Naloxone HCl 0.2 mg 12/28/23 19:31 Naloxone 0.4 Mg/Ml 1 Ml Vial IV Q2M PRN Opioid Reversal Octreotide Acetate 100 mcg 12/29/23 16:00 12/30/23 17:42 Octreotide 100 Mcg/Ml Inj SQ 100 mcg Q8HR HELLEN Administration Spironolactone 25 mg 12/29/23 09:00 12/30/23 09:27 Spironolactone 25 Mg Tab PO 25 mg DAILY HELLEN Administration Tramadol HCl 50 mg 12/29/23 00:18 Tramadol 50 Mg Tab PO BID PRN Pain Objective - Vital Signs Vital signs: Vital Signs Temp 97.7 F 12/30/23 16:00 Pulse 70 12/30/23 16:00 Resp 17 12/30/23 16:00 BP 137/75 12/30/23 16:00 Pulse Ox 97 12/30/23 16:00 FiO2 Intake & Output 12/30/23 12/30/23 12/31/23 06:59 18:59 06:59 Intake Total 600 Output Total 100 Balance 500 Weight 70.1 kg Intake: Oral 600 Output: Urine 100 Other: Voiding Method Toilet Toilet - Exam GENERAL: The patient is alert and oriented x3, not in any acute distress. Well developed, well nourished. HEENT: Pupils are round and equally reacting to light. EOMI. No scleral icterus. No conjunctival pallor. Normocephalic, atraumatic. No pharyngeal erythema. No thyromegaly. CARDIOVASCULAR: S1 and S2 present. No murmurs, rubs, or gallops. PULMONARY: Chest is clear to auscultation, no wheezing , no crackles. ABDOMEN: Soft, nontender, nondistended, normoactive bowel sounds. No palpable organomegaly. MUSCULOSKELETAL: No joint swelling or deformity. EXTREMITIES: No cyanosis, clubbing, or pedal edema. NEUROLOGICAL: Gross neurological examination did not reveal any focal deficits. SKIN: No rashes. no petechiae. - Labs CBC & Chem 7: 12/29/23 08:22 12/30/23 10:08 Labs: Abnormal Lab Results - Last 24 Hours (Table) 12/30/23 12/30/23 Range/Units 10:08 18:59 Sodium 136 L (137-145) mmol/L BUN 68 H (7-17) mg/dL Creatinine 3.47 H (0.52-1.04) mg/dL Calcium 8.3 L (8.4-10.2) mg/dL Urine Appearance Cloudy H (Clear) Urine Blood Small H (Negative) Ur Leukocyte Esterase Large H (Negative) Ur Squamous Epith Cells 7 H (0-4) /hpf Urine Bacteria Rare H (None) /hpf Urine Mucus Rare H (None) /hpf Assessment and Plan Assessment: Recurrent right pleural effusion s/p thoracocentesis on 12/28 where 1.7 L taken out Acute on chronic CKD stage IV, suspected to hepatorenal syndrome Acute on chronic thrombocytopenia Elevated troponin, mild most likely secondary to renal disease and heart failure, no evidence of chest pain or non-STEMI, no EKG changes. Mild transaminitis CHF with preserved ejection fraction Hypertension History of liver disease History of GERD Plan: Pulmonary team evaluated the patient. Patient underwent thoracocentesis with improvement in her breathing Started on octreotide by nephrology team for suspicion of hepatorenal syndrome Also kidney disease specialist was consulted for her worsening kidney function. Monitor platelet count. Wound consult Labs and medication were reviewed.. Continue same treatment. Continue with symptomatic treatment. Resume home medication. Monitor labs and vitals. DVT and GI prophylaxis. Further recommendations as per clinical course of the patient DVT prophylaxis: Subcutaneous heparin GI Prophylaxis: Pepcid PT/OT: Pending Prognosis is guarded
[2023-12-31 10:59] LABS: African American GFR (CKD) 16 (>60 ml/min/1.73 sqM); Anion Gap 8 mmol/L; Blood Urea Nitrogen 70 mg/dL (7-17); Calcium 7.8 mg/dL (8.4-10.2); Carbon Dioxide 22 mmol/L (22-30); Chloride 105 mmol/L (98-107); Glucose 114 mg/dL (74-99); Non-African American GFR(CKD) 14 (>60 ml/min/1.73 sqM); Sodium 135 mmol/L (137-145)
--- NOTE | 2023-12-31 12:57 | P.PN ---
Subjective patient is seen for follow-up for acute kidney injury. Urine output 600ml/24 hrs. Overall feels better. No complaints of shortness of breath. Serum creatinine increased to 3.4 yesterday. Patient was started on Sandostatin for possible hepatorenal syndrome. Also maintained on midodrine. Objective - Vital Signs Vital signs: Vital Signs Temp 97.4 F L 12/31/23 11:35 Pulse 72 12/31/23 11:35 Resp 17 12/31/23 11:35 BP 122/63 12/31/23 11:35 Pulse Ox 95 12/31/23 11:35 FiO2 Intake & Output 12/30/23 12/31/23 12/31/23 18:59 06:59 18:59 Intake Total 600 250 Output Total 100 500 Balance 500 -500 250 Weight 71.5 kg Intake: IV 10 Invasive Line 1 10 Oral 600 240 Output: Urine 100 500 Other: Voiding Method Toilet Toilet Toilet - Exam patient is awake, comfortable, alert oriented 3. No acute distress. Examination of the heart S1 and S2 Examination of the lungs bilateral breath sounds are heard with decreased breath sounds on the right side Abdomen is soft distended nontender Examination of lower extremity shows edema 2-3+ bilaterally both legs are wrap ped. FINISHER WALLBOARD AND PLASTERBOARD exam grossly intact - Labs CBC & Chem 7: 12/29/23 08:22 12/31/23 10:11 Labs: Abnormal Lab Results - Last 24 Hours (Table) 12/30/23 12/31/23 Range/Units 18:59 10:11 Sodium 135 L (137-145) mmol/L BUN 70 H (7-17) mg/dL Creatinine 3.22 H (0.52-1.04) mg/dL Glucose 114 H (74-99) mg/dL Calcium 7.8 L (8.4-10.2) mg/dL Urine Appearance Cloudy H (Clear) Urine Blood Small H (Negative) Ur Leukocyte Esterase Large H (Negative) Ur Squamous Epith Cells 7 H (0-4) /hpf Urine Bacteria Rare H (None) /hpf Urine Mucus Rare H (None) /hpf Assessment and Plan Assessment: 1. Acute kidney injury, ATN,versus hepatorenal syndrome. Check UA. no obstruction noted on ultrasound of the kidneys. Bumex has been discontinued. 2. Chronic kidney disease NKF stage IV with baseline creatinine around 2-2.2 mg/dL being followed at [facility] 3. Recurrent right pleural effusion status post thoracentesis this morning off 1700 ML of fluid. 4. History of liver cirrhosis status post TIPS procedure at [facility] 5. Chronic thrombocytopenia Plan: continue off of diuretics. continue Sandostatin Accurate I's and O's continue midodrine Repeat labs Briefly discussed renal replacement therapy is renal function continues to worsen.
--- NOTE | 2023-12-31 17:55 | P.PN ---
Subjective Progress Note Date: 12/31/23 Patient is a 73-year-old female with past medical history significant for common variable immunodeficiency, liver cirrhosis, ascites, TIPS procedure, and recurrent right-sided pleural effusion. Patient was seen at our facility in October, during downtime, she did undergo right-sided thoracentesis at that time. Fluid cytology negative for malignant cells. As reported above, patient does have liver cirrhosis and history of ascites with frequent paracentesis status post TIPS procedure. She does follow at the [facility]. Of note, patient had a recent hospitalization at [facility] last week. She reportedly underwent right-sided thoracentesis outside. She bel ieves a total of 2 L was drained. Discharged from the outside facility on December 16, with directions to follow-up with Dr. Lance. Chest x-ray done in the office showing a large right-sided pleural effusion. CBC: WBC count 3.4, hemoglobin 12.1, hematocrit 36.9, platelets 21,000. Coagulation profile: PT 11.9, INR 1.1, APTT 27.4. CMP: Sodium 137, potassium 4, chloride 105, serum bicarb 22, BUN 64, creatinine 3.34, glucose 108. AST 81, ALT 90, ALP 170. Troponin 0.086. NT proBNP 1030. EKG: Normal sinus rhythm, rate 68 bpm, no acute ischemic changes. She is currently sitting at the edge of the bed, on room air, she has some conversational dyspnea speaking in long sentences. Does endorse dyspnea, especially on exertion. Also, reports orthopnea. She has severe bilateral lower extremity weeping edema. She does take Bumex on an outpatient basis, which she recently stopped yesterday due to nausea. She denies any fevers, significant cough, chest pain, sputum production or hemoptysis. Abdomen not particular distended at this time. No abdominal pain. Last required paracentesis was reportedly May,. 12/31/2023, the patient is being seen for a follow-up. The patient is having some exertional dyspnea. She remains on room air oxygen. Renal function continues to improve and the creatinine is currently down to 3.2 from 3.47 from yesterday. Sodium levels at 135 with a potassium of 4 and a serum bicarb is 22. I contacted the daughter was very much concerned of the recurrent right-sided pleural effusion. I offered another thoracentesis prior to discharge and she wi ll consider the addition of a Pleurx catheter with her customer operations intern at [facility]. She is on room air oxygen with a pulse ox of 95%. Hemodynamically stable. The patient is currently on Aldactone. Bumex has been discontinued. She remains on midodrine. Objective - Vital Signs Vital signs: Vital Signs Temp 97.8 F 12/31/23 08:55 Pulse 77 12/31/23 08:55 Resp 17 12/31/23 08:55 BP 130/71 12/31/23 08:55 Pulse Ox 93 L 12/31/23 08:55 FiO2 Intake & Output 12/30/23 12/31/23 12/31/23 18:59 06:59 18:59 Intake Total 600 250 Output Total 100 500 Balance 500 -500 250 Weight 71.5 kg Intake: IV 10 Invasive Line 1 10 Oral 600 240 Output: Urine 100 500 Other: Voiding Method Toilet Toilet Toilet - Exam GENERAL EXAM: Alert, 73-year-old white female, sitting at the edge of the bed, on room air, minimal conversational dyspnea, comfortable in no apparent distress. HEAD: Normocephalic and atraumatic EYES: Normal reaction of pupils, equal size. NOSE: Clear with pink turbinates. THROAT: No erythema or exudates. NECK: No masses, no JVD. CHEST: No chest wall deformity. LUNGS: Equal air entry with markedly diminished lung sounds at the right base. No crackles, wheeze, rhonchi or dullness. On room air. Minimal conversational dyspnea at rest. Orthopnea observed when laying down for examination CVS: S1 and S2 normal with no grade 2 systolic murmur, regular rhythm. No extra heart sounds ABDOMEN: Abdomen not particularly distended, active bowel sounds, no hepatosplenomegaly, no guarding or rigidity. SPINE: No scoliosis or deformity SKIN: Shallow venous stasis ulcer on the right lower extremity draining serous fluid CENTRAL NERVOUS SYSTEM: No focal deficits, tone is normal in all 4 extremities. EXTREMITIES: There severe bilateral lower extremity weeping edema. No clubbing, or cyanosis. Peripheral pulses are intact. - Labs CBC & Chem 7: 12/29/23 08:22 12/31/23 10:11 Labs: Abnormal Lab Results - Last 24 Hours (Table) 12/30/23 12/31/23 Range/Units 18:59 10:11 Sodium 135 L (137-145) mmol/L BUN 70 H (7-17) mg/dL Creatinine 3.22 H (0.52-1.04) mg/dL Glucose 114 H (74-99) mg/dL Calcium 7.8 L (8.4-10.2) mg/dL Urine Appearance Cloudy H (Clear) Urine Blood Small H (Negative) Ur Leukocyte Esterase Large H (Negative) Ur Squamous Epith Cells 7 H (0-4) /hpf Urine Bacteria Rare H (None) /hpf Urine Mucus Rare H (None) /hpf Assessment and Plan Assessment: Recurrent right-sided pleural effusion, likely hepatic hydrothorax. Patient did previously have a right-sided thoracentesis done at our facility during downtime in October,; pleural fluid cytologically negative for malignant cells. Another thoracentesis was done on this patient with evacuation of 1.7 L of pleural fluid on 12/30/2023. Acute dyspnea, secondary to above, improved following thoracentesis History of liver cirrhosis and abdominal ascites, status post TIPS procedure Chronic thrombocytopenia, likely secondary to above Bilateral lower extremity edema Elevated troponins, likely supply/demand related Acute on chronic kidney disease, likely hepatorenal syndrome History of common variable immunodeficiency, receives IgG Plan: May need another thoracentesis prior to discharge The renal function continues to improve Patient is on Aldactone and the patient is on Bumex on room air Patient has a recurrent right-sided pleural effusion May be candidate for Pleurx catheter. This will be discussed with Dr. Chester. Abdominal ultrasound was also ordered and is pending, not likely enough fluid for paracentesis. She continues follow-up with licensed life and health agent and customer operations intern at [facility] Further recommendations to follow
[2023-12-31] MEDS: traMADol 50 MG TAB PO PRN (18:25)
[2024-01-01 07:23] VITALS: RESP 17
[2024-01-01 10:56] LABS: African American GFR (CKD) 15 (>60 ml/min/1.73 sqM); Anion Gap 7 mmol/L; Blood Urea Nitrogen 69 mg/dL (7-17); Calcium 7.3 mg/dL (8.4-10.2); Carbon Dioxide 19 mmol/L (22-30); Chloride 109 mmol/L (98-107); Glucose 170 mg/dL (74-99); Non-African American GFR(CKD) 13 (>60 ml/min/1.73 sqM); Potassium 4.1 mmol/L (3.5-5.1); Sodium 135 mmol/L (137-145)
[2024-01-01 11:03] VITALS: BP 159/79; PULSE 63; TEMP 97
--- NOTE | 2024-01-01 11:16 | P.PN ---
Subjective This is a pleasant 73 years old female with past medical history of multiple medical problems as below including liver disease, hypertension, GERD Also she has chronic kidney disease. She presents because of worsening dyspnea and leg swelling x 1 week. Patient states that her she had some diarrhea for about 8 days and that is why she stopped taking Lasix. Her diarrhea stopped and her last bowel movement was 2 days ago but presents because of worsening respiratory symptoms. Patient has 3+ bilateral pitting leg edema She denies any other specific complaint. When I saw the patient she was already had thoracocentesis where 1.7 L taken out from her right side she has chest x- ray showing recurrent right pleural effusion. She denies chest pain. No coughing. She is walking in the room by herself No current GI or urinary symptoms. No headache dizziness weakness numbness However she has poor appetite She has some superficial ulcers in the right leg posteriorly, no signs of infection no cellulitis no purulent discharge Vitals are stable afebrile Labs showing platelet count 21, today improved 25 with baseline 40-60 Creatinine also worsening from baseline of 2.2, this admission was 3.3. Liver enzymes mildly elevated INR and urine analysis were unremarkable proBNP slightly elevated at 1030 Ejection fraction is 60 to 65% on 05/2023 EKG showing sinus rhythm at [address]-T changes Chest ultrasound reviewed showing pleural effusion 13 cm 12/29 Patient feels better She still have low appetite Her kidney function worsening slightly to 3.4 and patient was started on midodrine small dose 2.5 mg, one-time dose of albumin IV given and started on octreotide 100 mg 3 times daily for suspicion of hepatorenal syndrome as patient has a history of cirrhosis S/p thoracocentesis and breathing is improved. Will monitor platelet count liver enzymes and check labs in the morning Renal ultrasound reviewed showing no hydronephrosis no kidney stone Bumex remains on hold. 12/30 Patient did not feel comfortable last night, she could not tell why but she looks anxious. She states she was peeing all night. This is after she received therapy of IV albumin, midodrine 2.5 mg started and octreotide. Her creatinine also came down today to 3.2. Nephrology team following closely Patient denies any other new complaint, no UTI signs and symptoms like dysuria or urgency. She still has some low energy and somewhat low appetite. Objective - Vital Signs Vital signs: Vital Signs Temp 97.4 F L 12/31/23 11:35 Pulse 72 12/31/23 11:35 Resp 17 12/31/23 11:35 BP 122/63 12/31/23 11:35 Pulse Ox 95 12/31/23 11:35 FiO2 Intake & Output 12/30/23 12/31/23 12/31/23 18:59 06:59 18:59 Intake Total 600 250 Output Total 100 500 Balance 500 -500 250 Weight 71.5 kg Intake: IV 10 Invasive Line 1 10 Oral 600 240 Output: Urine 100 500 Other: Voiding Method Toilet Toilet Toilet - Exam GENERAL: The patient is alert and oriented x3, not in any acute distress. Well developed, well nourished. HEENT: Pupils are round and equally reacting to light. EOMI. No scleral icterus. No conjunctival pallor. Normocephalic, atraumatic. No pharyngeal erythema. No thyromegaly. CARDIOVASCULAR: S1 and S2 present. No murmurs, rubs, or gallops. PULMONARY: Chest is clear to auscultation, no wheezing , no crackles. ABDOMEN: Soft, nontender, nondistended, normoactive bowel sounds. No palpable organomegaly. MUSCULOSKELETAL: No joint swelling or deformity. EXTREMITIES: No cyanosis, clubbing, or pedal edema. NEUROLOGICAL: Gross neurological examination did not reveal any focal deficits. SKIN: No rashes. no petechiae. - Labs CBC & Chem 7: 12/29/23 08:22 12/31/23 10:11 Labs: Abnormal Lab Results - Last 24 Hours (Table) 12/30/23 12/31/23 Range/Units 18:59 10:11 Sodium 135 L (137-145) mmol/L BUN 70 H (7-17) mg/dL Creatinine 3.22 H (0.52-1.04) mg/dL Glucose 114 H (74-99) mg/dL Calcium 7.8 L (8.4-10.2) mg/dL Urine Appearance Cloudy H (Clear) Urine Blood Small H (Negative) Ur Leukocyte Esterase Large H (Negative) Ur Squamous Epith Cells 7 H (0-4) /hpf Urine Bacteria Rare H (None) /hpf Urine Mucus Rare H (None) /hpf Assessment and Plan Assessment: Recurrent right pleural effusion s/p thoracocentesis on 12/28 where 1.7 L taken out Acute on chronic CKD stage IV, suspected to hepatorenal syndrome Acute on chronic thrombocytopenia Elevated troponin, mild most likely secondary to renal disease and heart failure, no evidence of chest pain or non-STEMI, no EKG changes. Mild transaminitis CHF with preserved ejection fraction Hypertension History of liver disease History of GERD Plan: Pulmonary team evaluated the patient. Patient underwent thoracocentesis with improvement in her breathing Started on octreotide by nephrology team for suspicion of hepatorenal syndrome Also kidney disease specialist was consulted for her worsening kidney function. Monitor platelet count. Wound consult Labs and medication were reviewed.. Continue same treatment. Continue with symptomatic treatment. Resume home medication. Monitor labs and vitals. DVT and GI prophylaxis. Further recommendations as per clinical course of the patient DVT prophylaxis: Subcutaneous heparin GI Prophylaxis: Pepcid PT/OT: Pending Prognosis is guarded
--- NOTE | 2024-01-01 12:47 | XR ---
EXAMINATION TYPE: XR chest 1V DATE OF EXAM: 01/01/2024 COMPARISON: 12/29/2023 HISTORY: Pleural effusion TECHNIQUE: Single frontal view of the chest is obtained. FINDINGS: Bilateral consolidation and a large right pleural effusion. Mild central venous congestion not excluded. No pneumothorax. Osseous structures intact. Metallic stent seen in the right abdomen. IMPRESSION: Large right pleural effusion progressed from prior exam with bilateral consolidation. Co rrelate for mild venous congestion. [facility], , 01/01/2024 12:45 PM
--- NOTE | 2024-01-01 13:27 | P.PN ---
Subjective patient is seen for follow-up for acute kidney injury. Urine output 600ml/24 hrs documented. But patient has had more urine output with bowel movements.. Overall feels better. No complaints of shortness of breath. Serum creatinine at 3.3 Patient was started on Sandostatin for possible hepatorenal syndrome. Also maintained on midodrine. Objective - Vital Signs Vital signs: Vital Signs Temp 97.0 F L 01/01/24 11:02 Pulse 63 01/01/24 11:02 Resp 17 01/01/24 11:02 BP 159/79 01/01/24 11:02 Pulse Ox 95 01/01/24 11:02 FiO2 Intake & Output 12/31/23 01/01/24 01/01/24 18:59 06:59 18:59 Intake Total 500 Balance 500 Weight 71.8 kg Intake: IV 20 Invasive Line 1 20 Oral 480 Other: Voiding Method Toilet Toilet Toilet # Voids 4 - Exam patient is awake, comfortable, alert oriented 3. No acute distress. Examination of the heart S1 and S2 Examination of the lungs bilateral breath sounds are heard with decreased breath sounds on the right side Abdomen is soft distended nontender Examination of lower extremity shows edema 2-3+ bilaterally both legs are wrappe d. ELECTRICIAN STATION ASSISTANT exam grossly intact - Labs CBC & Chem 7: 12/29/23 08:22 01/01/24 10:30 Labs: Abnormal Lab Results - Last 24 Hours (Table) 01/01/24 Range/Units 10:30 Sodium 135 L (137-145) mmol/L Chloride 109 H (98-107) mmol/L Carbon Dioxide 19 L (22-30) mmol/L BUN 69 H (7-17) mg/dL Creatinine 3.30 H (0.52-1.04) mg/dL Glucose 170 H (74-99) mg/dL Calcium 7.3 L (8.4-10.2) mg/dL Assessment and Plan Assessment: 1. Acute kidney injury, ATN,versus hepatorenal syndrome. UA is benign. No obstruction noted on ultrasound of the kidneys. Bumex has been discontinued. 2. Chronic kidney disease NKF stage IV with baseline creatinine around 2-2.2 mg/dL being followed at [facility] 3. Recurrent right pleural effusion status post thoracentesis this morning off 1700 ML of fluid. 4. History of liver cirrhosis status post TIPS procedure at [facility] 5. Chronic thrombocytopenia Plan: patient can resume Bumex in a.m. Okay to discharge from nephrology standpoint. continue Sandostatin Follow-up appointment at [facility] on Thursday next week. Accurate I's and O's continue midodrine Repeat labs in 2-3 days post discharge. Briefly discussed renal replacement therapy is renal function continues to worsen.
--- NOTE | 2024-01-01 13:49 | P.PN ---
Subjective Progress Note Date: 01/01/24 Patient is a 73-year-old female with past medical history significant for common variable immunodeficiency, liver cirrhosis, ascites, TIPS procedure, and recurrent right-sided pleural effusion. Patient was seen at our facility in October, during downtime, she did undergo right-sided thoracentesis at that time. Fluid cytology negative for malignant cells. As reported above, patient does have liver cirrhosis and history of ascites with frequent paracentesis status post TIPS procedure. She does follow at the [facility]. Of note, patient had a recent hospitalization at [facility] last week. She reportedly underwent right-sided thoracentesis outside. She bel ieves a total of 2 L was drained. Discharged from the outside facility on December 16, with directions to follow-up with Dr. Lance. Chest x-ray done in the office showing a large right-sided pleural effusion. CBC: WBC count 3.4, hemoglobin 12.1, hematocrit 36.9, platelets 21,000. Coagulation profile: PT 11.9, INR 1.1, APTT 27.4. CMP: Sodium 137, potassium 4, chloride 105, serum bicarb 22, BUN 64, creatinine 3.34, glucose 108. AST 81, ALT 90, ALP 170. Troponin 0.086. NT proBNP 1030. EKG: Normal sinus rhythm, rate 68 bpm, no acute ischemic changes. She is currently sitting at the edge of the bed, on room air, she has some conversational dyspnea speaking in long sentences. Does endorse dyspnea, especially on exertion. Also, reports orthopnea. She has severe bilateral lower extremity weeping edema. She does take Bumex on an outpatient basis, which she recently stopped yesterday due to nausea. She denies any fevers, significant cough, chest pain, sputum production or hemoptysis. Abdomen not particular distended at this time. No abdominal pain. Last required paracentesis was reportedly May,. 12/31/2023, the patient is being seen for a follow-up. The patient is having some exertional dyspnea. She remains on room air oxygen. Renal function continues to improve and the creatinine is currently down to 3.2 from 3.47 from yesterday. Sodium levels at 135 with a potassium of 4 and a serum bicarb is 22. I contacted the daughter was very much concerned of the recurrent right-sided pleural effusion. I offered another thoracentesis prior to discharge and she wi ll consider the addition of a Pleurx catheter with her sample maker at [facility]. She is on room air oxygen with a pulse ox of 95%. Hemodynamically stable. The patient is currently on Aldactone. Bumex has been discontinued. She remains on midodrine. 01/01/2024, the patient is stable. She is having some exertional dyspnea. No chest pain. No significant shortness of breath at rest. Her dyspnea is essentially exertional. Renal function is still abnormal yet stable compared to yesterday with a creatinine of 3.3 with a BUN of 69. Sodium levels at 135 and a potassium level is at 4.1. Repeat chest x-ray was obtained today and there is again reaccumulation of a large right-sided pleural effusion. I am going to perform another therapeutic thoracentesis on this patient as discussed earlier. She is known to have liver cirrhosis. She may benefit also from Pleurx catheter insertion to be discussed at a later stage with the team at [facility]. Objective - Vital Signs Vital signs: Vital Signs Temp 97.0 F L 01/01/24 11:02 Pulse 63 01/01/24 11:02 Resp 17 01/01/24 11:02 BP 159/79 01/01/24 11:02 Pulse Ox 95 01/01/24 11:02 FiO2 Intake & Output 12/31/23 01/01/24 01/01/24 18:59 06:59 18:59 Intake Total 500 Balance 500 Weight 71.8 kg Intake: IV 20 Invasive Line 1 20 Oral 480 Other: Voiding Method Toilet Toilet Toilet # Voids 4 - Exam GENERAL EXAM: Alert, 73-year-old white female, sitting at the edge of the bed, on room air, minimal conversational dyspnea, comfortable in no apparent distress. HEAD: Normocephalic and atraumatic EYES: Normal reaction of pupils, equal size. NOSE: Clear with pink turbinates. THROAT: No erythema or exudates. NECK: No masses, no JVD. CHEST: No chest wall deformity. LUNGS: Equal air entry with markedly diminished lung sounds at the right base. No crackles, wheeze, rhonchi or dullness. On room air. Minimal conversational dyspnea at rest. Orthopnea observed when laying down for examination CVS: S1 and S2 normal with no grade 2 systolic murmur, regular rhythm. No extra heart sounds ABDOMEN: Abdomen not particularly distended, active bowel sounds, no hepatosplenomegaly, no guarding or rigidity. SPINE: No scoliosis or deformity SKIN: Shallow venous stasis ulcer on the right lower extremity draining serous fluid CENTRAL NERVOUS SYSTEM: No focal deficits, tone is normal in all 4 extremities. EXTREMITIES: There severe bilateral lower extremity weeping edema. No clubbing, or cyanosis. Peripheral pulses are intact. - Labs CBC & Chem 7: 12/29/23 08:22 01/01/24 10:30 Labs: Abnormal Lab Results - Last 24 Hours (Table) 01/01/24 Range/Units 10:30 Sodium 135 L (137-145) mmol/L Chloride 109 H (98-107) mmol/L Carbon Dioxide 19 L (22-30) mmol/L BUN 69 H (7-17) mg/dL Creatinine 3.30 H (0.52-1.04) mg/dL Glucose 170 H (74-99) mg/dL Calcium 7.3 L (8.4-10.2) mg/dL Assessment and Plan Assessment: Recurrent right-sided pleural effusion, likely hepatic hydrothorax. Patient did previously have a right-sided thoracentesis done at our facility during downtime in October,; pleural fluid cytologically negative for malignant cells. Another thoracentesis was done on this patient with evacuation of 1.7 L of pleural fluid on 12/30/2023. Acute dyspnea, secondary to above, improved following thoracentesis History of liver cirrhosis and abdominal ascites, status post TIPS procedure Chronic thrombocytopenia, likely secondary to above Bilateral lower extremity edema Elevated troponins, likely supply/demand related Acute on chronic kidney disease, likely hepatorenal syndrome History of common variable immunodeficiency, receives IgG Plan: Recurrent large right-sided pleural effusion Will need thoracentesis prior to discharge The renal function is stable compared to yesterday Patient is on Aldactone and the patient is on Bumex on room air May be candidate for Pleurx catheter. This will be discussed with Dr. Chester. Abdominal ultrasound was also ordered and is pending, not likely enough fluid for paracentesis. She continues follow-up with rework machine operator and sample maker at [facility] Further recommendations to follow
--- NOTE | 2024-01-01 16:06 | P.PCN ---
Date of Procedure: 01/01/24 Operative Findings: Preoperative Diagnosis: Right-sided pleural effusion Postoperative Diagnosis: Right-sided pleural effusion Procedure(s) Performed: Right-sided thoracentesis Anesthesia: local Surgeon: Soledad Chester Estimated Blood Loss (ml): 0 Pathology: none sent Condition: stable Disposition: floor Operative Findings: A time out was performed and the chest x-ray was reviewed, the appropriate side was confirmed and marked. My hands were washed immediately prior to the procedure. I wore a surgical cap, mask with protective eyewear, sterile gown and sterile gloves throughout the procedure. The patient was prepped and draped in a sterile manner using chlorhexidine scrub after the appropriate level was percussed and confirmed by ultrasound. 1% lidocaine was used to anesthesize the skin, subcutaneous tissue, superior aspect of the rib periosteum and parietal pleura. A finder needle was then introduced over the superior aspect of the rib to locate the pleural fluid; 2colored fluid was aspirated at a depth of approximately 2 cm. A 10-blade scalpel was used to myesha the skin at the insertion site. The [id number] needle was then introduced through the skin incision into the pleural space using negative aspiration pressure and the red colometric indicator to confirm appropriate positioning of the needle. The thoracentesis catheter was then threaded without difficulty. 1700 ml of turbid colored fluid was removed without difficulty. The catheter was then removed. No immediate complications were noted during the procedure. A post-procedure chest x-ray is pending at the time of this note. The fluid will not be sent for studies. Estimated blood loss is 0cc
--- NOTE | 2024-01-01 16:31 | XR ---
EXAMINATION TYPE: XR chest 1V DATE OF EXAM: 01/01/2024 COMPARISON: 01/01/2024 INDICATION: Postthoracentesis TECHNIQUE: Single frontal view of the chest is obtained. FINDINGS: The heart size is normal. The pulmonary vasculature is normal. There is a small right pleural effusion, significantly diminished from previous exam. Mild left lower lobe infiltrate is present. Correlate for atelectasis or pneumonia. Some compressive atelectasis is likely remaining at the right lung base. No pneumothorax is evident post thoracentesis. IMPRESSION: 1. No pneumothorax postthoracentesis. 2. Small right pleural effusion. 3. Bibasilar infiltrates [facility], Workstation: [facility], 01/01/2024 4:28 PM
--- NOTE | 2024-01-08 10:24 | P.DS ---
Providers Date of admission: 12/28/23 19:46 Attending physician: Olman Barber Consults: 12/28/23 19:44 Consult Physician Urgent Consulting Provider: Soledad Chester Consult Reason/Comments: pleural effusions Do you want consulting provider notified?: Yes 12/29/23 06:49 Consult Physician Routine Consulting Provider: Farheen Espinoza Consult Reason/Comments: renal disease with recent worsening Do you want consulting provider notified?: Yes Primary care physician: [facility] Course: Date of service for this note on 01/01/2024 diagnosis: Recurrent right pleural effusion s/p thoracocentesis on 12/28 and 12/31 where 1.7 L taken out Acute on chronic CKD stage IV, suspected to hepatorenal syndrome Acute on chronic thrombocytopenia Elevated troponin, mild most likely secondary to renal disease and heart failure, no evidence of chest pain or non-STEMI, no EKG changes. Mild transaminitis Cirrhosis of the liver CHF with preserved ejection fraction Hypertension History of liver disease History of GERD Hospital course: This is a pleasant 73 years old female with past medical history of multiple medical problems as below including liver disease, hypertension, GERD Also she has chronic kidney disease. She presents because of worsening dyspnea and leg swelling x 1 week. Patient states that her she had some diarrhea for about 8 days and that is why she stopped taking Lasix. Her diarrhea stopped and her last bowel movement was 2 days ago but presents because of worsening respiratory symptoms. Patient has 3+ bilateral pitting leg edema Her kidney function worsening slightly to 3.4 and patient was started on midodrine small dose 2.5 mg, one-time dose of albumin IV given and started on octreotide 100 mg 3 times daily for suspicion of hepatorenal syndrome as patient has a history of cirrhosis Renal ultrasound reviewed showing no hydronephrosis no kidney stone Bumex was put on hold. Creatinine remains stable over several days around 3.3. Patient also evaluated by health insurance assessor, she underwent two rounds of thoracentesis on 12/28 and 12/31, her breathing improved, she remains with good oxygen saturation 95% on room air. Patient upon discharge denied his knee or chest pain or any new other complaint. Patient is able to go home patient was needed for discharge by pulmonary and nephrology services problems and management plan were discussed with the patient and he verbalized understanding and acceptance Patient was found stable and can be discharged home in guarded prognosis however he needs follow-up as an outpatient. Patient was instructed to follow up with PCP Dr. Roberts within one week and patient agrees patient also was instructed to follow up with health insurance assessor Dr. Chester in one week and with the painter tumbling barrel dr. espinoza in one week and she agrees Physical exam Gen: patient is a AAOx3, no distress CVS: S1-S2, RRR, no murmur Lungs: B/L CTA, no wheezing Abdomen: soft, no distention, no tenderness, positive bowel sounds Extremity: no leg edema or induration Time spent more than 35 minutes Patient Condition at Discharge: Serious Plan - Discharge Summary Discharge Rx Participant: No New Discharge Prescriptions: New Midodrine [ProAmatine] 2.5 mg PO AC-TID PRN #60 tab PRN Reason: Blood Pressure - Low Octreotide Acetate 100 mcg IJ Q8HR #90 each Continue traMADol HCL 50 mg PO BID PRN PRN Reason: Pain Immun Glob G(IgG)/Pro/Iga 0-50 [Hizentra 10 Gram/50 ml Syringe] 1 dose IV FR Spironolactone [Aldactone] 25 mg PO DAILY ALPRAZolam [Xanax] 1 mg PO BID PRN PRN Reason: Anxiety Aspirin EC [Ecotrin Low Dose] 81 mg PO DAILY Bumetanide [BUMEX] 1 mg PO DAILY Discharge Medication List traMADol HCL 50 mg PO BID PRN 08/29/19 [History] Immun Glob G(IgG)/Pro/Iga 0-50 [Hizentra 10 Gram/50 ml Syringe] 1 dose IV FR 08/12/23 [History] ALPRAZolam [Xanax] 1 mg PO BID PRN 12/28/23 [History] Aspirin EC [Ecotrin Low Dose] 81 mg PO DAILY 12/28/23 [History] Bumetanide [BUMEX] 1 mg PO DAILY 12/28/23 [History] Spironolactone [Aldactone] 25 mg PO DAILY 12/28/23 [History] Midodrine [ProAmatine] 2.5 mg PO AC-TID PRN #60 tab 01/01/24 [Rx] Octreotide Acetate 100 mcg IJ Q8HR #90 each 01/01/24 [Rx] Follow up Appointment(s)/Referral(s): Farheen Espinoza MD [STAFF PHYSICIAN] - 1 Week Piotr Figueroa DO [Primary Care Provider] - 1-2 days Soledad Chester MD [STAFF PHYSICIAN] - 1 Week Ambulatory/Diagnostic Orders: Basic Metabolic Panel [LAB.AMB] Time Frame: 3 Days, Location: None Selected Patient Instructions/Handouts: Pleural Effusion (DC) Activity/Diet/Wound Care/Special Instructions: Follow-up appointment at [facility] on Thursday next week. renal diet activity is restricted till you see your doctor you can resume your bumex tomorrow morning ] Repeat labs in 2-3 days after discharge from the hospital Discharge Disposition: HOME SELF-CARE
== END 2024-01-01 18:14 | disposition home or self-care (01) | DRG 186 ==
LOC: EC 16:06 → 3SCARD 19:46 → 3NCARDOBS 01-01 10:26 → 3SCARD 01-01 10:26
PROVIDERS: ADMIT Hospitalist; ATTEND Hospitalist
PROC: 0W993ZZ Drainage of Right Pleural Cavity, Percutaneous Approach (ICD-10-PCS; principal; 2023-12-29)
PROC: 0W993ZZ Drainage of Right Pleural Cavity, Percutaneous Approach (ICD-10-PCS; 2024-01-01)
DX: J94.8 Other specified pleural conditions (principal); K76.7 Hepatorenal syndrome; N17.0 Acute kidney failure with tubular necrosis; I13.0 Hypertensive heart and chronic kidney disease with heart failure and stage 1 through stage 4 chronic kidney disease, or unspecified chronic kidney disease; I50.30 Unspecified diastolic (congestive) heart failure; N18.4 Chronic kidney disease, stage 4 (severe); D83.9 Common variable immunodeficiency, unspecified; L97.819 Non-pressure chronic ulcer of other part of right lower leg with unspecified severity; K21.9 Gastro-esophageal reflux disease without esophagitis; D69.59 Other secondary thrombocytopenia; K74.60 Unspecified cirrhosis of liver; F32.A Depression, unspecified; F41.9 Anxiety disorder, unspecified; I83.018 Varicose veins of right lower extremity with ulcer other part of lower leg; Z79.82 Long term (current) use of aspirin; Z79.899 Other long term (current) drug therapy; Z90.710 Acquired absence of both cervix and uterus; Z82.3 Family history of stroke
CPT/HCPCS: 36415; 71045; 76604; 76705; 76770; 80048; 80053; 81001; 83605; 83880; 84484; 85025; 85610; 85730; 86850; 86900; 86901; 93005; 96374; 99285

== ENCOUNTER → 2024-01-11 | Outpatient (CLI) | payer MEDICARE ==
[2024-01-12 03:14] LABS: ALT 67 U/L (8-44); AST 73 U/L (13-35); Alkaline Phosphatase 169 U/L (41-126); Blood Urea Nitrogen 45.6 mg/dL (9.0-27.0); Calcium 8.4 mg/dL (8.7-10.3); Carbon Dioxide 24.5 mmol/L (21.6-31.8); Chloride 107 mmol/L (96-109); Globulin 1.5 g/dL (1.6-3.3); Glucose 190 mg/dL (70-110); Magnesium 1.5 mg/dL (1.5-2.4); Potassium 4.1 mmol/L (3.5-5.5); Sodium 143 mmol/L (135-145); Total Bilirubin 1.1 mg/dL (0.3-1.2); Total Protein 4.5 g/dL (6.2-8.2)
[2024-01-12 04:20] LABS: Basophils # (A) 0.03 X 10*3/uL (0.00-0.10); Basophils % (A) 1.1 %; Eosinophils # (A) 0.21 X 10*3/uL (0.04-0.35); Eosinophils % (A) 7.7 %; HCT 36.6 % (37.2-46.3); HGB 11.7 g/dL (12.0-15.0); Immature Grans, Automated 0 %; Lymphocytes # (A) 0.77 X 10*3/uL (0.90-5.00); Lymphocytes % (A) 28.2 %; MCH 29.1 pg (27.0-32.0); Mean Platelet Volume 11.6 FL (9.5-12.2); Monocytes # (A) 0.29 X 10*3/uL (0.20-1.00); Monocytes % (A) 10.6 %; NRBC Per 100 WBC 0 X 10*3/uL (0.00-0.01); Neutrophils # (A) 1.43 X 10*3/uL (1.80-7.70); Neutrophils % (A) 52.4 %; Platelet Count 22 X 10*3/uL (140-440); RBC 4.02 X 10*6/uL (4.10-5.20); RDW 20.6 % (11.5-14.5); WBC 2.73 X 10*3/uL (4.50-10.00)
== END | disposition home or self-care (01) ==
LOC: LABWHC1 14:39
PROVIDERS: ATTEND Nurse Practitioner Acute Care
DX: N18.4 Chronic kidney disease, stage 4 (severe) (principal)
CPT/HCPCS: 36415; 80053; 83735; 83970; 84100; 85025

== ENCOUNTER 2024-01-16 11:25 | Observation (INO) | payer MEDICARE ==
--- NOTE | 2024-01-16 12:05 | ED ---
General Adult HPI - General Chief complaint: Shortness of Breath Stated complaint: SOB Time Seen by Provider: 01/16/24 11:30 Source: patient, RN notes reviewed Mode of arrival: wheelchair Limitations: no limitations - History of Present Illness Initial comments: 73 year old female presents to the ED with chief complaint of shortness of breath. She has a significant history of cirrhosis, ascites, chronic cor pulmonale, and heart disease. She states that prior to having a TIPS procedure at the [facility], she had recurrent paracentesis. She saw Dr. Trevino on the 10 of January and scheduled a thoracentesis for January 26, but he felt that she may need it sooner and to follow up in the ED for worsening shortness of breath. She states that over the last 3 days, her shortness of breath has become increasingly worse with nocturnal dyspnea and orthopnea. She denies cough, chest pain, palpitations, and fever. She also states that she has multiple appointment for an ECHO and spirometry testing, among others. - Related Data Home Medications Medication Instructions Recorded Confirmed traMADol HCL 50 mg PO BID PRN 08/29/19 01/15/24 Immun Glob G(IgG)/Pro/Iga 0-50 1 dose IV FR 08/12/23 01/15/24 [Hizentra 10 Gram/50 ml Syringe] ALPRAZolam [Xanax] 1 mg PO BID PRN 12/28/23 01/15/24 Aspirin EC [Ecotrin Low Dose] 81 mg PO DAILY 12/28/23 01/15/24 Bumetanide [BUMEX] 1 mg PO DAILY 12/28/23 01/15/24 Spironolactone [Aldactone] 25 mg PO DAILY 12/28/23 01/15/24 Previous Rx's Medication Instructions Recorded Midodrine [ProAmatine] 2.5 mg PO AC-TID PRN #60 tab 01/01/24 Octreotide Acetate 100 mcg IJ Q8HR #90 each 01/01/24 Allergies Allergy/AdvReac Type Severity Reaction Status Date / Time sulfamethoxazole Allergy Unknown, Verified 01/16/24 11:29 [From Bactrim] family allergy trimethoprim [From Bactrim] Allergy Unknown, Verified 01/16/24 11:29 family allergy furosemide [From Lasix] AdvReac Rash/Hives Verified 01/16/24 11:29 Review of Systems ROS Statement: Those systems with pertinent positive or pertinent negative responses have been documented in the HPI. ROS Other: All systems not noted in ROS Statement are negative. Past Medical History Past Medical History: GERD/Reflux, Hypertension, Liver Disease, Renal Disease Additional Past Medical History / Comment(s): immunodeficiency, SOB pleural effusions requiring multiple Rt thoracentesis, low platelet count History of Any Multi-Drug Resistant Organisms: MRSA Date of last positivie culture/infection: 08/23/2009 MDRO Source:: open wound bilateral arms healed Past Surgical History: Hysterectomy Additional Past Surgical History / Comment(s): common variable immune deficicency, multiple paracentesis last in may 2023, colonoscopy with polyp removal, TIPS Jan 2023, thoracentesis Past Anesthesia/Blood Transfusion Reactions: No Reported Reaction Additional Past Anesthesia/Blood Transfusion Reaction / Comment(s): Slow to wake up. Past Psychological History: Anxiety, Depression Smoking Status: Never smoker Past Alcohol Use History: None Reported Past Drug Use History: None Reported - Past Family History Father Additional Family Medical History / Comment(s): Patient's father at age 92 from CVA. He also had a degenerative muscle disorder. Mother Additional Family Medical History / Comment(s): Mother is alive at age 90 with no major medical problems. Brother(s) Additional Family Medical History / Comment(s): Patient is a total of 4 siblings with no major medical problems. Patient has one daughter with no major medical problems. General Exam Limitations: no limitations General appearance: alert, in no apparent distress Head exam: Present: atraumatic, normocephalic, normal inspection Eye exam: Present: normal appearance, PERRL, EOMI. Absent: scleral icterus, c onjunctival injection, periorbital swelling ENT exam: Present: normal exam, mucous membranes moist Neck exam: Present: normal inspection. Absent: tenderness, meningismus, lymphadenopathy Respiratory exam: Present: decreased breath sounds. Absent: respiratory distress, wheezes, rales, rhonchi, stridor Expanded Location: Decreased Breath Sounds: Right, Lower, dullness to percussion: Lower Cardiovascular Exam: Present: regular rate, normal rhythm, normal heart sounds. Absent: systolic murmur, diastolic murmur, rubs, gallop, clicks GI/Abdominal exam: Present: soft, normal bowel sounds. Absent: distended, tenderness, guarding, rebound, rigid Extremities exam: Present: normal inspection, full ROM, normal capillary refill. Absent: tenderness, joint swelling, calf tenderness Left Lower Leg exam: Present: swelling Right Lower Leg exam: Present: swelling (Edema ) Back exam: Present: normal inspection Neurological exam: Present: alert, oriented X3, CN II-XII intact Psychiatric exam: Present: normal affect, normal mood Skin exam: Present: warm, dry, intact, normal color. Absent: rash Course Vital Signs 01/16/24 11:26 Temperature 97.9 F Pulse Rate 92 Respiratory 18 Rate Blood Pressure 142/69 O2 Sat by Pulse 96 Oximetry EKG Findings - EKG Comments: EKG Findings:: EKG performed at 12: 04 sinus rhythm rate of 85 HI 156 QRS 87 QT/QTc 379/422 - EKG Results: EKG: interpreted by DWAYNE Medical Decision Making - Medical Decision Making Was pt. sent in by a medical professional or institution (, PA, SEWER BRICKLAYER, urgent care, hospital, or [facility]...) When possible be specific @ -No Did you speak to anyone other than the patient for history (EMS, parent, family, police, friend...)? What history was obtained from this source @ -No Did you review nursing and triage notes (agree or disagree)? Why? @ -I reviewed and agree with nursing and triage notes Were old charts reviewed (outside hosp., previous admission, EMS record, old EKG, old radiological studies, urgent care reports/EKG's, [facility] records)? Report findings @ -Reviewed prior laboratory studies, chest x-rays, EKG Differential Diagnosis (chest pain, altered mental status, abdominal pain women, abdominal pain men, vaginal bleeding, weakness, fever, dyspnea, syncope, headache, dizziness, GI bleed, back pain, seizure, CVA, palpatations, mental health, musculoskeletal)? @ -Differential Dyspnea: Coronary syndrome, arrhythmia, tamponade, asthma, COPD, pulmonary embolism, pneumonia, pneumothorax, pulmonary effusion, anaphylaxis, diabetic ketoacidosis, flailed chest, pulmonary contusion, diaphragmatic rupture, anemia, neuromuscular, this is not meant to be an all-inclusive list. EKG interpreted by me (3pts min.). @ -As above X-rays interpreted by me (1pt min.). @ -Chest x-ray showing large right-sided pleural effusion CT interpreted by me (1pt min.). @ -None done U/S interpreted by me (1pt. min.). @ -None done What testing was considered but not performed or refused? (CT, X-rays, U/S, labs)? Why? @ -None What meds were considered but not given or refused? Why? @ -None Did you discuss the management of the patient with other professionals (pro fessionals i.e. , PA, SEWER BRICKLAYER, lab, RT, psych nurse, health care social worker, electric solderer, teacher, disciplinary hearing officer, case consultant)? Give summary @ -EMH for admission Was smoking cessation discussed for >3mins.? @ -No Was critical care preformed (if so, how long)? @ -No Were there social determinants of health that impacted care today? How? (Homelessness, low income, unemployed, alcoholism, drug addiction, transport ation, low edu. Level, literacy, decrease access to med. care, senior living, rehab)? @ -No Was there de-escalation of care discussed even if they declined (Discuss DNR or withdrawal of care, Hospice)? DNR status @ -No What co-morbidities impacted this encounter? (DM, HTN, Smoking, COPD, CAD, Cancer, CVA, ARF, Chemo, Hep., AIDS, mental health diagnosis, sleep apnea, morbid obesity)? @ -Immunodeficiency Was patient admitted / discharged? Hospital course, mention meds given and route, prescriptions, significant lab abnormalities, going to OR and other pertinent info. @ -admitted patient was found to have large pleural effusion on the right. Patient has had multiple thoracentesis in the past will require additional thoracentesis they have discussed pleural Dex drain. Patient does have an elevated D-dimer though this is chronically elevated at the same level. We did discuss CT will be held at this time pending further evaluation. Undiagnosed new problem with uncertain prognosis? @ -No Drug Therapy requiring intensive monitoring for toxicity (Heparin, Nitro, Insulin, Cardizem)? @ -No Were any procedures done? @ -No Diagnosis/symptom? @ -Pleural effusion, dyspnea Acute, or Chronic, or Acute on Chronic? @ -Acute Uncomplicated (without systemic symptoms) or Complicated (systemic symptoms)? @ -complicated Side effects of treatment? @ -No Exacerbation, Progression, or Severe Exacerbation? @ -No Poses a threat to life or bodily function? How? (Chest pain, USA, CO, pneumonia, PE, COPD, DKA, ARF, appy, cholecystitis, CVA, Diverticulitis, Homicidal, Suicidal, threat to staff... and all critical care pts) @ -No - Lab Data Result diagrams: 01/16/24 11:53 Lab Results 01/16/24 01/16/24 01/16/24 Range/Units 11:53 11:53 11:53 WBC 3.5 L (3.8-10.6) k/uL RBC 4.39 (3.80-5.40) m/uL Hgb 13.1 (11.4-16.0) gm/dL Hct 39.6 (34.0-46.0) % MCV 90.4 (80.0-100.0) fL MCH 29.9 (25.0-35.0) pg MCHC 33.1 (31.0-37.0) g/dL RDW 18.4 H (11.5-15.5) % Plt Count 28 L (150-450) k/uL MPV 7.1 Neutrophils % 59 % Lymphocytes % 22 % Monocytes % 12 % Eosinophils % 4 % Basophils % 1 % Neutrophils # 2.1 (1.3-7.7) k/uL Lymphocytes # 0.8 L (1.0-4.8) k/uL Monocytes # 0.4 (0-1.0) k/uL Eosinophils # 0.1 (0-0.7) k/uL Basophils # 0.0 (0-0.2) k/uL Manual Slide Review Performed Hypochromasia Slight Poikilocytosis Slight Anisocytosis Slight PT 12.2 (10.0-12.5) sec INR 1.1 (<1.2) APTT 24.4 (22.0-30.0) sec D-Dimer 2.24 H (<0.60) mg/L FEU Troponin I 0.025 (0.000-0.034) ng/mL Disposition Clinical Impression: Pleural effusion, Pulmonary edema, Dyspnea Disposition: ADMITTED IP TO THIS HOSP Condition: Fair Time of Disposition: 13:20
[2024-01-16 12:26] LABS: Anisocytosis Slight; Basophils % (A) 1 %; Eosinophils # (A) 0.1 k/uL (0-0.7); Eosinophils % (A) 4 %; HCT 39.6 % (34.0-46.0); HGB 13.1 gm/dL (11.4-16.0); Hypochromasia Slight; Lymphocytes # (A) 0.8 k/uL (1.0-4.8); Lymphocytes % (A) 22 %; MCH 29.9 pg (25.0-35.0); MCHC 33.1 g/dL (31.0-37.0); MCV 90.4 fL (80.0-100.0); Mean Platelet Volume 7.1; Monocytes # (A) 0.4 k/uL (0-1.0); Monocytes % (A) 12 %; Neutrophils # (A) 2.1 k/uL (1.3-7.7); Neutrophils % (A) 59 %; Poikilocytosis Slight; RBC 4.39 m/uL (3.80-5.40); RDW 18.4 % (11.5-15.5); WBC 3.5 k/uL (3.8-10.6)
[2024-01-16 12:34] LABS: Platelet Count 28 k/uL (150-450)
[2024-01-16 12:41] LABS: INR 1.1 (<1.2); Partial Thromboplastin Time 24.4 sec (22.0-30.0); Prothrombin Time 12.2 sec (10.0-12.5)
--- NOTE | 2024-01-16 12:52 | XR ---
EXAMINATION TYPE: XR chest 2V DATE OF EXAM: 01/16/2024 12:21 PM COMPARISON: Chest radiographs from 01/01/2024 CLINICAL INDICATION: Female, 73 years old with history of difficulty breathing; [facility] TECHNIQUE: XR chest 2V Frontal and lateral views of the chest. FINDINGS: Lungs/Pleura: Right pleural effusion is increased in size from prior. There is no evidence of pleural effusion, focal consolidation, or pneumothorax. Pulmonary vascularity: Mild pulmonary vascular congestion. Heart/mediastinum: Cardiomediastinal silhouette is enlarged and stable. Musculoskeletal: No acute osseous pathology. Other findings: None Lines/Tubes: IMPRESSION: Enlarging right pleural effusion, now moderate to large with pulmonary edema. [facility], , 01/16/2024 12:49 PM
[2024-01-16 13:27] LABS: ALT 74 U/L (4-34); African American GFR (CKD) 27 (>60 ml/min/1.73 sqM); Albumin 2.9 g/dL (3.5-5.0); Anion Gap 6 mmol/L; Blood Urea Nitrogen 48 mg/dL (7-17); Carbon Dioxide 29 mmol/L (22-30); Chloride 107 mmol/L (98-107); Glucose 123 mg/dL (74-99); Non-African American GFR(CKD) 23 (>60 ml/min/1.73 sqM); Sodium 142 mmol/L (137-145); Total Bilirubin 2.1 mg/dL (0.2-1.3); Total Protein 5.2 g/dL (6.3-8.2)
[2024-01-16] MEDS ORDERED: NALOXONE 0.4 MG/ML 1 ML VIAL IV PRN (13:28)
[2024-01-16 13:35] LABS: NT-Pro-B-Type Natriuretic Pept 739 pg/mL
[2024-01-16 13:53] LABS: AST 106 U/L (14-36); Alkaline Phosphatase 180 U/L (38-126); Magnesium 1.6 mg/dL (1.6-2.3); Potassium 4.2 mmol/L (3.5-5.1)
[2024-01-16] MEDS ORDERED: traMADol 50 MG TAB PO PRN (16:55)
[2024-01-16] MEDS ORDERED: MIDODRINE 5 MG TAB PO PRN (16:55)
[2024-01-16] MEDS: ALPRAZolam 1 MG TAB PO PRN (21:24)
[2024-01-17] MEDS: OCTREOTIDE 100 MCG/ML INJ SQ SCH (00:55)
[2024-01-17 07:40] VITALS: BP 132/69; PULSE 77; RESP 16; TEMP 97.5
--- NOTE | 2024-01-17 07:49 | US ---
EXAMINATION TYPE: US chest DATE OF EXAM: 01/17/2024 COMPARISON: CXR CLINICAL INDICATION: Female, 73 years old with history of Markings for thoracentesis by pulmonary sta ff; Right pleural effusion TECHNIQUE: Grayscale imaging of the chest. Targeted ultrasound of the posterior lower right hemithor ax FINDINGS: EXAM MEASUREMENTS: Right Pleural Effusion pocket size: 9.3 cm Right skin surface to fluid distance: 3.4 cm Right side marked for possible thoracentesis outside the dept. Pulmonologists are able to review the images in the patient?s EMR. IMPRESSIONS: Moderate pleural effusion. [facility], , 01/17/2024 7:46 AM
--- NOTE | 2024-01-17 08:02 | P.CNPUL ---
History of Present Illness Consult date: 01/17/24 Requesting physician: Olman Barber Reason for consult: dyspnea, pleural effusion, abnormal CXR/CT Chief complaint: Shortness of breath, pleural effusion. History of present illness: Pulmonary consult dated January 17, 2024. 73-year-old female with a history of chronic liver disease, and cirrhosis, chronic ascites, and recurrent right-sided pleural effusion. The patient comes into the emergency department, on January 15, complaining of shortness of breath. The patient has had multiple thoracentesis in the past, maybe even to this past week. The patient is scheduled to see her doctors at the [facility], on January 20. Her last thoracentesis of apparently done on January 10, in my office, by my partner. The patient will have a right sided thoracentesis today. We ordered an ultrasound of the right chest. She denies any chest pain or chest discomfort. No fever or chills. Her primary issue is shortness of breath. Medical history includes gastroesophageal reflux disease, hypertension, chronic liver disease, chronic renal disease, common variable immunodeficiency syndrome, previous MRSA infection, and previous TIPS procedure, 2022 at [facility]. White count 3.5, hemoglobin 13.1, hematocrit 39.6, platelet count 28,000. D-dimer was 2.24. Sodium 142, potassium 4.2, chlorides 107, CO2 29, BUN and creatinine were 48 and 2.09. Bilirubin was 2.1. AST 106. ALT 74. Ultrasound reveals a 9.3 cm pocket on the right. Review of Systems REVIEW OF SYSTEMS: CONSTITUTIONAL: [Negative.] NEUROLOGIC: [ Negative.] HEENT: [ Negative.] CARDIAC: [Negative.] PULMONARY: Shortness of breath. GI: [Negative.] : [Negative.] RHEUMATOLOGIC: [ Negative.] IMMUNOLOGIC: [ Negative.] ENDOCRINE: [Negative. ] DERMATOLOGIC: [Negative.] Past Medical History Past Medical History: GERD/Reflux, Hypertension, Liver Disease, Renal Disease Additional Past Medical History / Comment(s): immunodeficiency, SOB pleural effusions requiring multiple Rt thoracentesis, low platelet count History of Any Multi-Drug Resistant Organisms: MRSA Date of last positivie culture/infection: 08/23/2009 MDRO Source:: open wound bilateral arms healed Past Surgical History: Hysterectomy Additional Past Surgical History / Comment(s): common variable immune deficic ency, multiple paracentesis last in may 2023, colonoscopy with polyp removal, TIPS Jan 2023, thoracentesis Past Anesthesia/Blood Transfusion Reactions: No Reported Reaction Additional Past Anesthesia/Blood Transfusion Reaction / Comment(s): Slow to wake up. Past Psychological History: Anxiety, Depression Smoking Status: Never smoker Past Alcohol Use History: None Reported Additional Past Alcohol Use History / Comment(s): She denies any alcohol use, marijuana or illicit drug use. She is and lives at home with her . She retired in 2017 from [employer]. Past Drug Use History: None Reported - Past Family History Father Additional Family Medical History / Comment(s): Patient's father at age 92 from CVA. He also had a degenerative muscle disorder. Mother Additional Family Medical History / Comment(s): Mother is alive at age 90 with no major medical problems. Brother(s) Additional Family Medical History / Comment(s): Patient is a total of 5 siblings with no major medical problems. Patient has one daughter with no major medical problems. Medications and Allergies Home Medications Medication Instructions Recorded Confirmed Type traMADol HCL 50 mg PO BID PRN 08/29/19 01/16/24 History Immun Glob G(IgG)/Pro/Iga 0-50 1 dose IV FR 08/12/23 01/16/24 History [Hizentra 10 Gram/50 ml Syringe] ALPRAZolam [Xanax] 1 mg PO BID PRN 12/28/23 01/16/24 History Aspirin EC [Ecotrin Low Dose] 81 mg PO DAILY 12/28/23 01/16/24 History Bumetanide [BUMEX] 1 mg PO DAILY 12/28/23 01/16/24 History Spironolactone [Aldactone] 25 mg PO DAILY 12/28/23 01/16/24 History Midodrine [ProAmatine] 2.5 mg PO AC-TID PRN #60 tab 01/01/24 01/16/24 Rx Octreotide Acetate 100 mcg IM Q8HR 01/16/24 01/16/24 History Allergies Allergy/AdvReac Type Severity Reaction Status Date / Time sulfamethoxazole Allergy Unknown, Verified 01/16/24 14:21 [From Bactrim] family allergy trimethoprim [From Bactrim] Allergy Unknown, Verified 01/16/24 14:21 family allergy furosemide [From Lasix] AdvReac Rash/Hives Verified 01/16/24 14:21 Physical Exam Osteopathic Statement: *. No significant issues noted on an osteopathic structural exam other than those noted in the History and Physical/Consult. Vitals: Vital Signs Temp Pulse Pulse Resp BP BP Pulse Ox 01/17/24 07:00 97.5 F L 77 16 132/69 95 01/17/24 01:40 EDT 97.7 F 84 18 117/68 93 L 01/16/24 19:41 97.9 F 80 16 164/70 94 L 01/16/24 15:37 97.3 F L 80 16 154/71 96 01/16/24 11:26 97.9 F 92 18 142/69 96 Intake and Output 01/16/24 01/17/24 01/17/24 23:59 06:59 14:59 Intake Total Balance Intake: Oral Other: # Voids Weight No acute distress, oriented 3. HEENT examination is grossly unremarkable. Mucous membranes are moist. No oral lesions. Neck supple. Full range of motion. No adenopathy thyromegaly or neck vein distention. Cardiovascular examination reveals regular rhythm rate. S1-S2 normal. No S3 or S4. No discernible murmur noted. Lungs reveal dullness on percussion, and diminished breath sounds at the right base. No wheezes or crackles. Abdomen soft bowel sounds are heard. No masses or tenderness. Extremities are intact. No cyanosis clubbing or edema. Skin is without rash or lesion. Neurologic examination is brief but nonfocal. Results - Laboratory Findings CBC and BMP: 01/16/24 11:53 01/16/24 11:53 PT/INR, D-dimer PT 12.2 sec (10.0-12.5) 01/16/24 11:53 INR 1.1 (<1.2) 01/16/24 11:53 D-Dimer 2.24 mg/L FEU (<0.60) H 01/16/24 11:53 Abnormal lab findings: Abnormal Labs 01/16/24 01/16/24 01/16/24 11:53 11:53 11:53 WBC 3.5 L RDW 18.4 H Plt Count 28 L Lymphocytes # 0.8 L D-Dimer 2.24 H BUN 48 H Creatinine 2.09 H Glucose 123 H Total Bilirubin 2.1 H AST 106 H ALT 74 H Alkaline Phosphatase 180 H Total Protein 5.2 L Albumin 2.9 L - Diagnostic Findings Chest x-ray: image reviewed Assessment and Plan Assessment: Recurrent right sided pleural effusion, with associated shortness of breath, status post multiple thoracentesis. History of chronic liver disease, currently being treated at the [facility]. Status post transjugular intrahepatic portosystemic shunt (TIPS). History of common variable immunodeficiency syndrome. History of hypertension. History of gastroesophageal reflux disease. Thrombocytopenia. History of anxiety/depression. Plan: Plan dated January 17, 2024. The patient had an ultrasound marking of the right posterior chest. A 9.3 cm pocket was observed. The patient underwent right sided thoracentesis at the bedside. Nearly 2000 cc of fluid was removed. The fluid was not sent for analysis. 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 The patient tolerated the procedure well. From our perspective, the patient could be discharged. She does need a follow-up chest x-ray. She should follow-up with my partner as well. In addition, she has an appointment at [facility], on January 20. Time with Patient: Greater than 30
--- NOTE | 2024-01-17 08:46 | PCN ---
PROCEDURE NOTE PROCEDURE PERFORMED: Right-sided thoracentesis. PREOPERATIVE DIAGNOSIS: Right pleural effusion. POSTOPERATIVE DIAGNOSIS: Right pleural effusion. HABILITATION WORKER: Dr. Harris. FIRST OSTEOPATHY DOCTOR: Dr. Neena Mckeon. The patient's procedure was done in room 626. There was informed consent and universal timeout. INDICATION: Pleural effusion. DESCRIPTION OF PROCEDURE: A time-out was completed verifying correct patient, procedure, site, positioning , and implant (s) or special equipment if applicable. Ultrasound guidance was used and appropriate fluid pocket was identified and marked. The patient was positioned, prepped and draped in usual sterile fashion. Lidocaine was used to anesthetize the area. A Thoracentesis catheter was introduced into the pleural space and fluid was removed. Blood loss was none. A chest x-ray was ordered to evaluate for pneumothorax. The posterior right chest was marked by ultrasound. We obtained 1950 mL of dark yellow fluid from the right pleural space. The patient tolerated the procedure well. A stat chest x-ray was ordered. The fluid will not be sent for analysis, as they had been analyzed many times in the past. From my perspective, if the chest x-ray was okay, the patient could be discharged. The patient should follow up with my partner, Dr. Chester. She also has an appointment at [facility], on January 20. The patient tolerated the procedure well and there were no complications. MMODL / IJN: [id number] /
[2024-01-17] MEDS: ASPIRIN 81 MG PO SCH (09:00)
[2024-01-17] MEDS: SPIRONOLACTONE 25 MG TAB PO SCH (09:00)
[2024-01-17] MEDS: BUMETANIDE 1 MG TAB PO SCH (09:00)
--- NOTE | 2024-01-17 09:04 | XR ---
EXAMINATION TYPE: XR chest 1V portable DATE OF EXAM: 01/17/2024 8:20 AM COMPARISON: Chest radiographs from 01/16/2024 CLINICAL INDICATION: Female, 73 years old with history of S/P right Thoracentesis; [facility] TECHNIQUE: XR chest 1V portable Frontal view of the chest. FINDINGS: Lungs/Pleura: Decrease in right pleural effusion. There is no evidence of pleural effusion, focal con solidation, or pneumothorax. Pulmonary vascularity: Unremarkable. Heart/mediastinum: Cardiomediastinal silhouette is unremarkable. Musculoskeletal: No acute osseous pathology. IMPRESSION: Decreased right pleural effusion now small to moderate [facility], , 01/17/2024 9:02 AM
--- NOTE | 2024-01-17 10:04 | P.HPIM ---
History of Present Illness H&P Date: 01/17/24 History of present illness; patient 73-year-old lady with past medical history significant for CKD, cirrhosis of the liver, CHF, hypertension presented the ER because of shortness of breath. Patient normally follows up with outpatient with from pulmonology and was scheduled to undergo thoracentesis on January 26. Patient stated that she has been noticing that the last few days her shortness of breath has worsened. Patient was complaining of shortness of breath on exertion. Patient also complained of orthopnea. Patient denied any chest pain. There was no complaint of fever or chills. Patient was complaining of swelling of feet. There was no complaint of nausea, vomiting abdominal pain. Because of this shortness of breath, patient presented to the ER Initial lab work done in the ER showed WBC 3.5, hemoglobin 13.1, platelet count 28, sodium 142, potassium 4.2, BUN 28, creatinine 2.09, glucose 123, total bilirubin 2.1, AST 106, ALT 74 EKG done in the ER showed heart rate of 85, no ST segment elevation or depression seen, no T-wave inversions seen. Chest x-ray done in the ER showed enlarging right pleural effusion, now moderate to large with pulm edema Patient admitted to internal medicine service REVIEW OF SYSTEMS: CONSTITUTIONAL: No fever, no malaise, no fatigue. HEENT: No recent visual problems or hearing problems. Denied any sore throat. CARDIOVASCULAR: As mentioned above PULMONARY: As mentioned above GASTROINTESTINAL: No diarrhea, no nausea, no vomiting, no abdominal pain. NEUROLOGICAL: No headaches, no weakness, no numbness. HEMATOLOGICAL: Denies any bleeding or petechiae. GENITOURINARY: Denies any burning micturition, frequency, or urgency. MUSCULOSKELETAL/RHEUMATOLOGICAL: Denies any joint pain, swelling, or any muscle pain. ENDOCRINE: Denies any polyuria or polydipsia. The rest of the 14-point review of systems is negative. PHYSICAL EXAMINATION: GENERAL: The patient is alert and oriented x3, chronically ill looking HEENT: Pupils are round and equally reacting to light. EOMI. No scleral icterus. No conjunctival pallor. Normocephalic, atraumatic. No pharyngeal erythema. No thyromegaly. CARDIOVASCULAR: S1 and S2 present. No murmurs, rubs, or gallops. PULMONARY: Diminished lung sounds at base of right lung, crackles audible on the right lung, no rhonchi or wheeze ABDOMEN: Soft, nontender, nondistended, normoactive bowel sounds. No palpable organomegaly. MUSCULOSKELETAL: No joint swelling or deformity. EXTREMITIES: No cyanosis, clubbing, or pedal edema. NEUROLOGICAL: Gross neurological examination did not reveal any focal deficits. SKIN: No rashes. 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 History of hypertension. History of gastroesophageal reflux disease. CHF with preserved ejection fraction Monitor vital signs Monitor CBC Monitor CMP Continue oxygen supplementation aggressive bronchopulmonary hygiene Ultrasound of the chest ordered Resume home meds Consult pulmonary, patient will be undergoing thoracentesis Labs and medication were reviewed.. Continue same treatment. Continue with symptomatic treatment. Resume home medication. Monitor labs and vitals. DVT and GI prophylaxis. Further recommendations as per clinical course of the patient Dictation was produced using [employer] dictation software. please excuse any grammatical, word or spelling errors. Past Medical History Past Medical History: GERD/Reflux, Hypertension, Liver Disease, Renal Disease Additional Past Medical History / Comment(s): immunodeficiency, SOB pleural effusions requiring multiple Rt thoracentesis, low platelet count History of Any Multi-Drug Resistant Organisms: MRSA Date of last positivie culture/infection: 08/23/2009 MDRO Source:: open wound bilateral arms healed Past Surgical History: Hysterectomy Additional Past Surgical History / Comment(s): common variable immune deficicency, multiple paracentesis last in may 2023, colonoscopy with polyp removal, TIPS Jan 2023, thoracentesis Past Anesthesia/Blood Transfusion Reactions: No Reported Reaction Additional Past Anesthesia/Blood Transfusion Reaction / Comment(s): Slow to wake up. Past Psychological History: Anxiety, Depression Smoking Status: Never smoker Past Alcohol Use History: None Reported Additional Past Alcohol Use History / Comment(s): She denies any alcohol use, marijuana or illicit drug use. She is and lives at home with her . She retired in 2017 from [employer]. Past Drug Use History: None Reported - Past Family History Father Additional Family Medical History / Comment(s): Patient's father at age 92 from CVA. He also had a degenerative muscle disorder. Mother Additional Family Medical History / Comment(s): Mother is alive at age 90 with no major medical problems. Brother(s) Additional Family Medical History / Comment(s): Patient is a total of 5 siblings with no major medical problems. Patient has one daughter with no major medical problems. Medications and Allergies Home Medications Medication Instructions Recorded Confirmed Type traMADol HCL 50 mg PO BID PRN 08/29/19 01/16/24 History Immun Glob G(IgG)/Pro/Iga 0-50 1 dose IV FR 08/12/23 01/16/24 History [Hizentra 10 Gram/50 ml Syringe] ALPRAZolam [Xanax] 1 mg PO BID PRN 12/28/23 01/16/24 History Aspirin EC [Ecotrin Low Dose] 81 mg PO DAILY 12/28/23 01/16/24 History Bumetanide [BUMEX] 1 mg PO DAILY 12/28/23 01/16/24 History Spironolactone [Aldactone] 25 mg PO DAILY 12/28/23 01/16/24 History Midodrine [ProAmatine] 2.5 mg PO AC-TID PRN #60 tab 01/01/24 01/16/24 Rx Octreotide Acetate 100 mcg IM Q8HR 01/16/24 01/16/24 History Allergies Allergy/AdvReac Type Severity Reaction Status Date / Time sulfamethoxazole Allergy Unknown, Verified 01/16/24 14:21 [From Bactrim] family allergy trimethoprim [From Bactrim] Allergy Unknown, Verified 01/16/24 14:21 family allergy furosemide [From Lasix] AdvReac Rash/Hives Verified 01/16/24 14:21 Physical Exam Vitals: Vital Signs Temp Pulse Pulse Resp BP BP Pulse Ox 01/17/24 07:00 97.5 F L 77 16 132/69 95 01/17/24 01:40 EDT 97.7 F 84 18 117/68 93 L 01/16/24 19:41 97.9 F 80 16 164/70 94 L 01/16/24 15:37 97.3 F L 80 16 154/71 96 01/16/24 11:26 97.9 F 92 18 142/69 96 Intake and Output 01/16/24 01/17/24 01/17/24 23:59 06:59 14:59 Intake Total 236 Balance 236 Intake: Oral 236 Other: # Voids Weight Results CBC & Chem 7: 01/16/24 11:53 01/16/24 11:53 Labs: Abnormal Lab Results - Last 24 Hours (Table) 01/16/24 01/16/24 01/16/24 Range/Units 11:53 11:53 11:53 WBC 3.5 L (3.8-10.6) k/uL RDW 18.4 H (11.5-15.5) % Plt Count 28 L (150-450) k/uL Lymphocytes # 0.8 L (1.0-4.8) k/uL D-Dimer 2.24 H (<0.60) mg/L FEU BUN 48 H (7-17) mg/dL Creatinine 2.09 H (0.52-1.04) mg/dL Glucose 123 H (74-99) mg/dL Total Bilirubin 2.1 H (0.2-1.3) mg/dL AST 106 H (14-36) U/L ALT 74 H (4-34) U/L Alkaline Phosphatase 180 H (38-126) U/L Total Protein 5.2 L (6.3-8.2) g/dL Albumin 2.9 L (3.5-5.0) g/dL Thrombosis Risk Factor Assmnt - Choose All That Apply Each Risk Factor Represents 2 Points: Age 61-74 years Thrombosis Risk Factor Assessment Total Risk Factor Score: 2 Thrombosis Risk Factor Assessment Level: Low Risk
--- NOTE | 2024-01-23 10:24 | P.DS ---
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 History of hypertension. History of gastroesophageal reflux disease. CHF with preserved ejection fraction Hospital course; patient 73-year-old lady with past medical history significant for CKD, cirrhosis of the liver, CHF, hypertension presented the ER because of shortness of breath. Patient normally follows up with outpatient with from pulmonology and was scheduled to undergo thoracentesis on January 26. Patient stated that she has been noticing that the last few days her shortness of breath has worsened. Patient was complaining of shortness of breath on exertion. Patient also complained of orthopnea. Patient denied any chest pain. There was no complaint of fever or chills. Patient was complaining of swelling of feet. There was no complaint of nausea, vomiting abdominal pain. Because of this shortness of breath, patient presented to the ER Initial lab work done in the ER showed WBC 3.5, hemoglobin 13.1, platelet count 28, sodium 142, potassium 4.2, BUN 28, creatinine 2.09, glucose 123, total bilirubin 2.1, AST 106, ALT 74 EKG done in the ER showed heart rate of 85, no ST segment elevation or depression seen, no T-wave inversions seen. Chest x-ray done in the ER showed enlarging right pleural effusion, now moderate to large with pulm edema Patient admitted to internal medicine service Patient was evaluated by pulmonology, patient underwent right-sided thoracentesis with removal of 195 0 mL of fluid. Pulmonology cleared the patient for discharge PHYSICAL EXAMINATION: GENERAL: The patient is alert and oriented x3, ill looking HEENT: Pupils are round and equally reacting to light. EOMI. No scleral icterus. No conjunctival pallor. Normocephalic, atraumatic. No pharyngeal erythema. No thyromegaly. CARDIOVASCULAR: S1 and S2 present. No murmurs, rubs, or gallops. PULMONARY: Good air entry bilaterally, no wheezing or crackles. ABDOMEN: Soft, nontender, nondistended, normoactive bowel sounds. No palpable organomegaly. MUSCULOSKELETAL: No joint swelling or deformity. EXTREMITIES: No cyanosis, clubbing, or pedal edema. NEUROLOGICAL: Gross neurological examination did not reveal any focal deficits. SKIN: No rashes. Dictation was produced using [employer] dictation software. please excuse any grammatical, word or spelling errors. Patient Condition at Discharge: Fair Plan - Discharge Summary Discharge Rx Participant: No New Discharge Prescriptions: Continue traMADol HCL 50 mg PO BID PRN PRN Reason: Pain Immun Glob G(IgG)/Pro/Iga 0-50 [Hizentra 10 Gram/50 ml Syringe] 1 dose IV FR Spironolactone [Aldactone] 25 mg PO DAILY ALPRAZolam [Xanax] 1 mg PO BID PRN PRN Reason: Anxiety Aspirin EC [Ecotrin Low Dose] 81 mg PO DAILY Midodrine [ProAmatine] 2.5 mg PO AC-TID PRN #60 tab PRN Reason: Blood Pressure - Low Bumetanide [BUMEX] 1 mg PO DAILY Octreotide Acetate 100 mcg IM Q8HR Discharge Medication List traMADol HCL 50 mg PO BID PRN 08/29/19 [History] Immun Glob G(IgG)/Pro/Iga 0-50 [Hizentra 10 Gram/50 ml Syringe] 1 dose IV FR 08/12/23 [History] ALPRAZolam [Xanax] 1 mg PO BID PRN 12/28/23 [History] Aspirin EC [Ecotrin Low Dose] 81 mg PO DAILY 12/28/23 [History] Bumetanide [BUMEX] 1 mg PO DAILY 12/28/23 [History] Spironolactone [Aldactone] 25 mg PO DAILY 12/28/23 [History] Midodrine [ProAmatine] 2.5 mg PO AC-TID PRN #60 tab 01/01/24 [Rx] Octreotide Acetate 100 mcg IM Q8HR 01/16/24 [History] Follow up Appointment(s)/Referral(s): Piotr Figueroa DO [Primary Care Provider] - 1-2 days Patient Instructions/Handouts: Pleural Effusion (DC) Discharge Disposition: HOME SELF-CARE
== END 2024-01-17 12:20 | disposition home or self-care (01) ==
LOC: EC 11:25 → 6NMEDSUR 13:15
PROVIDERS: ADMIT Hospitalist; ATTEND Hospitalist
DX: J90 Pleural effusion, not elsewhere classified (principal); I13.0 Hypertensive heart and chronic kidney disease with heart failure and stage 1 through stage 4 chronic kidney disease, or unspecified chronic kidney disease; I50.30 Unspecified diastolic (congestive) heart failure; N18.4 Chronic kidney disease, stage 4 (severe); I27.81 Cor pulmonale (chronic); D69.6 Thrombocytopenia, unspecified; K21.9 Gastro-esophageal reflux disease without esophagitis; K74.60 Unspecified cirrhosis of liver; D83.9 Common variable immunodeficiency, unspecified; F41.9 Anxiety disorder, unspecified; F32.9 Major depressive disorder, single episode, unspecified; Z66 Do not resuscitate; Z79.82 Long term (current) use of aspirin; Z79.899 Other long term (current) drug therapy; Z88.2 Allergy status to sulfonamides; Z88.8 Allergy status to other drugs, medicaments and biological substances; Z86.14 Personal history of Methicillin resistant Staphylococcus aureus infection
CPT/HCPCS: 96372; 99285; 36415; 93005; 85379; 83880; 80053; 83735; 84484; 85025; 85610; 85730; 71045; 71046; 76604; G0378 ×2; J2354

== ENCOUNTER → 2024-01-22 | Outpatient (CLI) | payer MEDICARE ==
[2024-01-22 15:31] LABS: ALT 65 U/L (8-44); AST 75 U/L (13-35); Albumin 2.7 g/dL (3.8-4.9); Albumin/Globulin Ratio 1.59 Ratio (1.60-3.17); Alkaline Phosphatase 213 U/L (41-126); Bilirubin, Conjugated 0.64 mg/dL (0.20-0.40); Bilirubin,Unconjugated 0.96 mg/dL (0.20-1.00); Blood Urea Nitrogen 38.4 mg/dL (9.0-27.0); Calcium 8.7 mg/dL (8.7-10.3); Carbon Dioxide 28.4 mmol/L (21.6-31.8); Chloride 106 mmol/L (96-109); Globulin 1.7 g/dL (1.6-3.3); Glucose 100 mg/dL (70-110); Potassium 3.4 mmol/L (3.5-5.5); Sodium 144 mmol/L (135-145); Total Bilirubin 1.6 mg/dL (0.3-1.2); Total Protein 4.4 g/dL (6.2-8.2)
[2024-01-22 15:33] LABS: INR 1.09 sec (0.93-1.11); Prothrombin Time 11.7 sec (9.9-11.9)
[2024-01-22 17:26] LABS: HCT 37.3 % (37.2-46.3); HGB 12.1 g/dL (12.0-15.0); Immature Platelet Fraction 1.3 % (1.1-6.1); MCH 29.4 pg (27.0-32.0); MCHC 32.4 g/dL (32.0-37.0); MCV 90.8 FL (80.0-97.0); Mean Platelet Volume 9.4 FL (9.5-12.2); NRBC Per 100 WBC 0 X 10*3/uL (0.00-0.01); Platelet Count 34 X 10*3/uL (140-440); RBC 4.11 X 10*6/uL (4.10-5.20); RDW 18.8 % (11.5-14.5)
== END | disposition home or self-care (01) ==
LOC: LABWHC1 11:12
PROVIDERS: ATTEND Internal Medicine
DX: K72.90 Hepatic failure, unspecified without coma (principal); K74.60 Unspecified cirrhosis of liver; R18.8 Other ascites
CPT/HCPCS: 36415; 80048; 80076; 82105; 85027; 85610

== ENCOUNTER → 2024-01-27 | Day surgery (SDC) | payer MEDICARE ==
[~2024-01-27] MED LIST changes: -ALBUMIN HUMAN 25% 50 ML in EMPTY BAG 1 BAG IVPB ONE; +SODIUM CHLORIDE 0.9% 250 ML in EMPTY BAG 1 BAG IV PRN; +SODIUM CHLORIDE 0.9% 500 ML 500 ML in EMPTY BAG 1 BAG IV PRN
[2024-01-27 10:36] VITALS: RESP 16; TEMP 97.4
[2024-01-27 11:06] VITALS: BP 97/52; PULSE 88
--- NOTE | 2024-01-27 11:21 | XR ---
EXAMINATION TYPE: XR chest 1V portable DATE OF EXAM: 01/27/2024 11:10 AM COMPARISON: Chest radiographs from 01/27/2024. CLINICAL INDICATION: Female, 73 years old with history of post r thorancentesis; [facility] TECHNIQUE: XR chest 1V portable Frontal view of the chest. FINDINGS: Lungs/Pleura: Blunting of the right costophrenic angle. There is no evidence of left pleural effusion , focal consolidation, or pneumothorax. Pulmonary vascularity: Pulmonary vascular congestion. Heart/mediastinum: Cardiomediastinal silhouette is unremarkable. Musculoskeletal: No acute osseous pathology. Other findings: None IMPRESSION: Small right pleural effusion with mild pulmonary edema. No pneumothorax. [facility], , 01/27/2024 11:19 AM
--- NOTE | 2024-01-27 11:24 | XR ---
EXAMINATION TYPE: XR chest 1V portable DATE OF EXAM: 01/27/2024 10:45 AM COMPARISON: Chest radiographs from 01/17/2024 CLINICAL INDICATION: Female, 73 years old with history of pre thorancentesis; [facility] TECHNIQUE: XR chest 1V portable Frontal view of the chest. FINDINGS: Lungs/Pleura: Moderate to large amount of fluid in the right lung There is no evidence of left pleura l effusion, focal consolidation, or pneumothorax. Pulmonary vascularity: Unremarkable. Heart/mediastinum: Cardiomediastinal silhouette is unremarkable. Musculoskeletal: No acute osseous pathology. IMPRESSION: Moderate to large right pleural effusion [facility], , 01/27/2024 11:22 AM
--- NOTE | 2024-01-27 13:12 | OP ---
OPERATIVE REPORT DATE OF SERVICE : PROCEDURE: Right-sided thoracentesis. PREOPERATIVE DIAGNOSIS: Recurrent right pleural effusion. POSTOPERATIVE DIAGNOSIS: Recurrent right pleural effusion. ANESTHESIA USED: 2 mL of 1% lidocaine. DESCRIPTION OF PROCEDURE: The patient had preoperative chest x-ray, and there was evidence of large right-sided pleural effusion. Then, the area at the 8th intercostal space and tip of the scapula was marked, the area was prepared in a sterile fashion, drapes were applied, the same area was anesthetized with lidocaine and the needle was advanced into the pleural space, fluid was localized with the needle. Then, a small tiny incision was made, and a standard thoracentesis catheter and needle were used, advanced into the pleural space until fluid was obtained. Then, the catheter was advanced over the needle and the needle was pulled out of the pleural space. Freely flowing fluid was removed, roughly 2500 mL of marce colored fluid with a slightly light pink fluid noted and drained from the right pleural space. Again, a total of 2500 mL were drained. The procedure was well tolerated, chest x-ray showed no evidence of complications, a small residual right- sided pleural effusion was noted. Postoperatively, no complication. Procedure was well tolerated. MMODL / IJN: [id number] /
== END ==
LOC: PROCWHC3 10:18
PROVIDERS: ATTEND Internal Medicine
DX: J90 Pleural effusion, not elsewhere classified (principal)
CPT/HCPCS: 32554; 71045

== ENCOUNTER 2024-02-06 08:24 | Emergency (ER) | payer MEDICARE ==
[2024-02-06 08:33] VITALS: TEMP 97.7
--- NOTE | 2024-02-06 08:48 | ED ---
SOB HPI - General Chief Complaint: Shortness of Breath Stated Complaint: SOB Time Seen by Provider: 02/06/24 08:34 Source: patient, RN notes reviewed Mode of arrival: wheelchair Limitations: no limitations - History of Present Illness Initial Comments: 73-year-old female presents emergency Serbian complaint of shortness of breath. Patient has recurrent pleural effusion. Patient states that she did have thoracentesis 10 days ago. Patient does see Dr. Foster this is a recurrent issue. Patient states she has an appointment on Thursday but felt worse so she presented to the emergency department. Patient denies any fevers or chills no cold-like symptoms she does have a cough which is more chronic. Patient denies any chest pain. - Related Data Home Medications Medication Instructions Recorded Confirmed traMADol HCL 50 mg PO BID PRN 08/29/19 01/27/24 Immun Glob G(IgG)/Pro/Iga 0-50 1 dose IV FR 08/12/23 01/27/24 [Hizentra 10 Gram/50 ml Syringe] ALPRAZolam [Xanax] 1 mg PO BID PRN 12/28/23 01/27/24 Aspirin EC [Ecotrin Low Dose] 81 mg PO DAILY 12/28/23 01/27/24 Bumetanide [BUMEX] 1 mg PO DAILY 12/28/23 01/27/24 Spironolactone [Aldactone] 25 mg PO DAILY 12/28/23 01/27/24 Allergies Allergy/AdvReac Type Severity Reaction Status Date / Time sulfamethoxazole Allergy Unknown, Verified 02/06/24 08:30 [From Bactrim] family allergy trimethoprim [From Bactrim] Allergy Unknown, Verified 02/06/24 08:30 family allergy furosemide [From Lasix] AdvReac Rash/Hives Verified 02/06/24 08:30 Review of Systems ROS Statement: Those systems with pertinent positive or pertinent negative responses have been documented in the HPI. ROS Other: All systems not noted in ROS Statement are negative. Past Medical History Past Medical History: GERD/Reflux, Hypertension, Liver Disease, Renal Disease Additional Past Medical History / Comment(s): immunodeficiency, SOB pleural effusions requiring multiple Rt thoracentesis, low platelet count History of Any Multi-Drug Resistant Organisms: MRSA Date of last positivie culture/infection: 08/23/2009 MDRO Source:: open wound bilateral arms healed Past Surgical History: Hysterectomy Additional Past Surgical History / Comment(s): common variable immune deficicency, multiple paracentesis last in may 2023, colonoscopy with polyp removal, TIPS Jan 2023, thoracentesis Past Anesthesia/Blood Transfusion Reactions: No Reported Reaction Additional Past Anesthesia/Blood Transfusion Reaction / Comment(s): Slow to wake up. Past Psychological History: Anxiety, Depression Smoking Status: Never smoker - Past Family History Father Additional Family Medical History / Comment(s): Patient's father at age 92 from CVA. He also had a degenerative muscle disorder. Mother Additional Family Medical History / Comment(s): Mother is alive at age 90 with no major medical problems. Brother(s) Additional Family Medical History / Comment(s): Patient is a total of 5 siblings with no major medical problems. Patient has one daughter with no major medical problems. General Exam Limitations: no limitations General appearance: alert, in no apparent distress Head exam: Present: atraumatic, normocephalic, normal inspection Eye exam: Present: normal appearance, PERRL, EOMI. Absent: scleral icterus, conjunctival injection, periorbital swelling ENT exam: Present: normal exam, mucous membranes moist Neck exam: Present: normal inspection, full ROM. Absent: tenderness, men ingismus, lymphadenopathy Respiratory exam: Present: rales, decreased breath sounds. Absent: normal lung sounds bilaterally, respiratory distress, wheezes, rhonchi, stridor Cardiovascular Exam: Present: regular rate, normal rhythm, normal heart sounds. Absent: systolic murmur, diastolic murmur, rubs, gallop, clicks Course Vital Signs 02/06/24 02/06/24 02/06/24 08:30 08:33 11:55 Temperature 97.7 F Pulse Rate 81 77 79 Respiratory 24 18 16 Rate Blood Pressure 115/61 120/58 91/48 O2 Sat by Pulse 94 L 91 L 92 L Oximetry 02/06/24 12:44 Temperature Pulse Rate 83 Respiratory 16 Rate Blood Pressure 94/56 O2 Sat by Pulse 98 Oximetry Medical Decision Making - Medical Decision Making Was pt. sent in by a medical professional or institution (, PA, SOIL AND PLANT SCIENTIST, urgent care, hospital, or fdc...) When possible be specific @ -No Did you speak to anyone other than the patient for history (EMS, parent, family, police, friend...)? What history was obtained from this source @ -No Did you review nursing and triage notes (agree or disagree)? Why? @ -I reviewed and agree with nursing and triage notes Were old charts reviewed (outside hosp., previous admission, EMS record, old EKG, old radiological studies, urgent care reports/EKG's, fdc records)? Report findings @ -Reviewed prior admission, consults from pulmonology Differential Diagnosis (chest pain, altered mental status, abdominal pain women, abdominal pain men, vaginal bleeding, weakness, fever, dyspnea, syncope, headache, dizziness, GI bleed, back pain, seizure, CVA, palpatations, mental health, musculoskeletal)? @ -Differential Dyspnea: Coronary syndrome, arrhythmia, tamponade, asthma, COPD, pulmonary embolism, pneumonia, pneumothorax, pulmonary effusion, anaphylaxis, diabetic ketoacidosis, flailed chest, pulmonary contusion, diaphragmatic rupture, anemia, neuromuscular, this is not meant to be an all-inclusive list. EKG interpreted by me (3pts min.). @ -None X-rays interpreted by me (1pt min.). @ -[Chest x-ray shows large right pleural effusion Chest x-ray status post thoracentesis improved, minimal effusion no pneumothorax CT interpreted by me (1pt min.). @ -None done U/S interpreted by me (1pt. min.). @ -Ultra sound was performed for thoracentesis to the right showing large pleural effusion What testing was considered but not performed or refused? (CT, X-rays, U/S, labs)? Why? @ -None What meds were considered but not given or refused? Why? @ -None Did you discuss the management of the patient with other professionals (professionals i.e. , PA, [employer]ANT SCIENTIST, lab, RT, psych nurse, social contact worker, cloth roll winder, teacher, access control officer, director of casework)? Give summary @ -Discussed the case with Dr. Ortega who recommended ultrasound and will evaluate the patient emergency department for thoracentesis Was smoking cessation discussed for >3mins.? @ -No Was critical care preformed (if so, how long)? @ -No Were there social determinants of health that impacted care today? How? (Homelessness, low income, unemployed, alcoholism, drug addiction, transportation, low edu. Level, literacy, decrease access to med. care, assisted, rehab)? @ -No Was there de-escalation of care discussed even if they declined (Discuss DNR or withdrawal of care, Hospice)? DNR status @ -No What co-morbidities impacted this encounter? (DM, HTN, Smoking, COPD, CAD, Cancer, CVA, ARF, Chemo, Hep., AIDS, mental health diagnosis, sleep apnea, morbid obesity)? @ -Chronic pleural effusion, liver disease Was patient admitted / discharged? Hospital course, mention meds given and route, prescriptions, significant lab abnormalities, going to OR and other pertinent info. @ -Discharge patient had 2-1/2 L of fluid removed from the right pleural space t his was performed by certified court/medical interpreter Dr. Fagan. Patient be discharged in stable condition. Undiagnosed new problem with uncertain prognosis? @ -No Drug Therapy requiring intensive monitoring for toxicity (Heparin, Nitro, Insulin, Cardizem)? @ -No Were any procedures done? @ -No Diagnosis/symptom? @ -Pleural effusion Acute, or Chronic, or Acute on Chronic? @ -Acute Uncomplicated (without systemic symptoms) or Complicated (systemic symptoms)? @ -Complicated Side effects of treatment? @ -No Exacerbation, Progression, or Severe Exacerbation? @ -No Poses a threat to life or bodily function? How? (Chest pain, USA, AR, pneumonia, PE, COPD, DKA, ARF, appy, cholecystitis, CVA, Diverticulitis, Homicidal, Suicidal, threat to staff... and all critical care pts) @ -Yes low likelihood, possible respiratory failure - Lab Data Result diagrams: 02/06/24 08:55 02/06/24 08:55 Lab Results 02/06/24 02/06/24 02/06/24 Range/Units 08:55 08:55 08:55 WBC 2.8 L (3.8-10.6) k/uL RBC 4.06 (3.80-5.40) m/uL Hgb 11.9 (11.4-16.0) gm/dL Hct 37.0 (34.0-46.0) % MCV 91.2 (80.0-100.0) fL MCH 29.4 (25.0-35.0) pg MCHC 32.3 (31.0-37.0) g/dL RDW 18.6 H (11.5-15.5) % Plt Count 21 L (150-450) k/uL MPV 8.0 Neutrophils % 58 % Lymphocytes % 27 % Monocytes % 7 % Eosinophils % 4 % Basophils % 1 % Neutrophils # 1.6 (1.3-7.7) k/uL Lymphocytes # 0.7 L (1.0-4.8) k/uL Monocytes # 0.2 (0-1.0) k/uL Eosinophils # 0.1 (0-0.7) k/uL Basophils # 0.0 (0-0.2) k/uL Hypochromasia Slight Poikilocytosis Moderate Anisocytosis Slight PT 11.9 (10.0-12.5) sec INR 1.1 (<1.2) APTT 30.2 H (22.0-30.0) sec Sodium 139 (137-145) mmol/L Potassium 3.5 (3.5-5.1) mmol/L Chloride 107 (98-107) mmol/L Carbon Dioxide 27 (22-30) mmol/L Anion Gap 5 mmol/L BUN 54 H (7-17) mg/dL Creatinine 1.87 H (0.52-1.04) mg/dL Est GFR (CKD-EPI)AfAm 31 (>60 ml/min/1.73 sqM) Est GFR (CKD-EPI)NonAf 27 (>60 ml/min/1.73 sqM) Glucose 139 H (74-99) mg/dL Calcium 8.8 (8.4-10.2) mg/dL Total Bilirubin 2.0 H (0.2-1.3) mg/dL AST 90 H (14-36) U/L ALT 84 H (4-34) U/L Alkaline Phosphatase 255 H (38-126) U/L Total Protein 4.7 L (6.3-8.2) g/dL Albumin 2.4 L (3.5-5.0) g/dL Disposition Clinical Impression: Pleural effusion Disposition: HOME SELF-CARE Condition: Stable Additional Instructions: Please return to the Emergency Department if symptoms worsen or any other concerns. Is patient prescribed a controlled substance at d/c from ED?: No Referrals: Piotr Figueroa DO [Primary Care Provider] - 1-2 days Time of Disposition: 11:46
[2024-02-06 09:03] LABS: Anisocytosis Slight; Basophils % (A) 1 %; Eosinophils # (A) 0.1 k/uL (0-0.7); Eosinophils % (A) 4 %; HGB 11.9 gm/dL (11.4-16.0); Hypochromasia Slight; Lymphocytes # (A) 0.7 k/uL (1.0-4.8); Lymphocytes % (A) 27 %; MCH 29.4 pg (25.0-35.0); MCHC 32.3 g/dL (31.0-37.0); MCV 91.2 fL (80.0-100.0); Monocytes # (A) 0.2 k/uL (0-1.0); Monocytes % (A) 7 %; Neutrophils # (A) 1.6 k/uL (1.3-7.7); Neutrophils % (A) 58 %; Poikilocytosis Moderate; RBC 4.06 m/uL (3.80-5.40); RDW 18.6 % (11.5-15.5); WBC 2.8 k/uL (3.8-10.6)
--- NOTE | 2024-02-06 09:11 | XR ---
2 view chest HISTORY: Shortness of breath. COMPARISON: 01/16/2024. TECHNIQUE: PA and lateral views chest obtained. PA and lateral chest HISTORY: Cough, chest pain, shortness of breath COMPARISON: TECHNIQUE: PA and lateral views the chest were obtained. FINDINGS: There is a large right pleural effusion which has increased in the interval from the study dated 01/15. Partially consolidated/interstitial opacity in the left lung base is stable. There is no pneumothorax. The osseous structures are intact. IMPRESSION: Large right pleural effusion which has increased in the interval compared to the study of 02-06. No c hange in the retrocardiac opacity. [facility], , 02/06/2024 9:09 AM
[2024-02-06 09:12] LABS: INR 1.1 (<1.2); Partial Thromboplastin Time 30.2 sec (22.0-30.0); Prothrombin Time 11.9 sec (10.0-12.5)
[2024-02-06 09:16] LABS: Platelet Count 21 k/uL (150-450)
[2024-02-06 09:45] LABS: ALT 84 U/L (4-34); AST 90 U/L (14-36); African American GFR (CKD) 31 (>60 ml/min/1.73 sqM); Albumin 2.4 g/dL (3.5-5.0); Alkaline Phosphatase 255 U/L (38-126); Anion Gap 5 mmol/L; Blood Urea Nitrogen 54 mg/dL (7-17); Calcium 8.8 mg/dL (8.4-10.2); Carbon Dioxide 27 mmol/L (22-30); Chloride 107 mmol/L (98-107); Glucose 139 mg/dL (74-99); Non-African American GFR(CKD) 27 (>60 ml/min/1.73 sqM); Potassium 3.5 mmol/L (3.5-5.1); Sodium 139 mmol/L (137-145); Total Protein 4.7 g/dL (6.3-8.2)
[2024-02-06] MEDS: ONDANSETRON 4 MG/2 ML VIAL IVP STA (09:45)
--- NOTE | 2024-02-06 10:18 | US ---
EXAMINATION TYPE: US chest DATE OF EXAM: 02/06/2024 COMPARISON: CXR CLINICAL INDICATION: Female, 73 years old with history of right pleural effusion; TECHNIQUE: Grayscale imaging of the chest. Targeted ultrasound of the posterior lower right hemithor ax FINDINGS: EXAM MEASUREMENTS: Right Pleural Effusion pocket size: 18.0 cm Right skin surface to fluid distance: 1.8 cm Right side marked for possible thoracentesis outside the dept. Pulmonologists are able to review the images in the patient?s EMR. IMPRESSIONS: Large right pleural effusion. [facility], , 02/06/2024 10:16 AM
[2024-02-06 11:56] VITALS: RESP 16
--- NOTE | 2024-02-06 11:57 | XR ---
EXAMINATION TYPE: XR chest 1V portable DATE OF EXAM: 02/06/2024 CLINICAL HISTORY: Status post thoracentesis TECHNIQUE: Single frontal view of the chest is obtained. COMPARISON: Same day FINDINGS: Interval diminution in right-sided pleural effusion. No evidence for sizable pneumothorax. Basilar infiltrates and residual right-sided effusion noted. The cardiac silhouette size is within no rmal limits. The osseous structures are intact. IMPRESSION: Interval diminution in right-sided pleural effusion. No evidence for sizable pneumothora x. [facility], , 02/06/2024 11:55 AM
--- NOTE | 2024-02-06 12:04 | OP ---
OPERATIVE REPORT DATE OF SERVICE : PROCEDURE PERFORMED: Right-sided thoracentesis. PREOPERATIVE DIAGNOSIS: Right pleural effusion. POSTOPERATIVE DIAGNOSIS: Right pleural effusion. AUTOMATIC PRESSER: Dr. Harris. FIRST BLOCKING MACHINE OPERATOR SECOND: Dr. Neena Mckeon. There was informed consent and universal timeout. The patient's procedure took place in the emergency department, room 17. INDICATION: Pleural effusion. DESCRIPTION OF PROCEDURE: A time-out was completed verifying correct patient, procedure, site, positioning , and implant (s) or special equipment if applicable. Ultrasound guidance was used and appropriate fluid pocket was identified and marked. Patient was positioned, prepped and draped in usual sterile fashion. Lidocaine was used to anesthetize the area. A Thoracentesis catheter was introduced into the pleural space and fluid was removed. Blood loss was none. The posterior chest was marked by ultrasound. A 2.5 L of milky fluid was removed from the right pleural space. The fluid will not be sent for analysis. A chest x- ray was ordered to rule out pneumothorax. The patient can be discharged from the emergency department, if the chest x-ray appears normal. The patient tolerated the procedure well without complication. MMODL / IJN: [id number] / MTDD
[2024-02-06 12:46] VITALS: BP 94/56; PULSE 83
== END 2024-02-06 12:48 | disposition home or self-care (01) ==
LOC: EC 08:24
DX: J90 Pleural effusion, not elsewhere classified (principal); Z88.2 Allergy status to sulfonamides; Z88.8 Allergy status to other drugs, medicaments and biological substances
CPT/HCPCS: 36415; 80053; 85025; 85610; 85730; 71045; 71046; 76604; 99285; 96374; 32555; J2405

== ENCOUNTER 2024-02-09 13:20 | Inpatient (IN) | payer MEDICARE ==
--- NOTE | 2024-02-09 13:41 | ED ---
SOB HPI - General Chief Complaint: Shortness of Breath Stated Complaint: SOB Time Seen by Provider: 02/09/24 13:29 Source: patient Mode of arrival: ambulatory Limitations: no limitations - History of Present Illness Initial Comments: This patient is a 73-year-old woman who arrives to have evaluation for shortness of breath. She does relate that she has history of recurrent right pleural effusion but she states that it was drained on January 26 and she had been doing fairly well. The shortness of breath has been recurring over the past 1 to 2 days. She states that yesterday she also was having what she described as diarrhea but notes that she had increased her lactulose because she was concerned about ammonia level. The patient did not note fever or chills. No bloody or tarry stools. Patient does not have chest pain or cough associated w ith the dyspnea. Patient does have some chronic leg edema bilaterally and states that it may be slightly worse than usual. MD Complaint: shortness of breath Onset/Timin -: days(s) Severity: moderate Consistency: constant Improves With: nothing Worsens With: exertion Known History Of: other (History of effusion) Treatments Prior to Arrival: none - Related Data Home Oxygen Therapy: No Home Medications Medication Instructions Recorded Confirmed traMADol HCL 50 mg PO BID PRN 08/29/19 02/09/24 Immun Glob G(IgG)/Pro/Iga 0-50 1 dose IV FR 08/12/23 02/09/24 [Hizentra 10 Gram/50 ml Syringe] ALPRAZolam [Xanax] 1 mg PO BID PRN 12/28/23 02/09/24 Aspirin EC [Ecotrin Low Dose] 81 mg PO DAILY 12/28/23 02/09/24 Bumetanide [BUMEX] 1 mg PO DAILY 12/28/23 02/09/24 Spironolactone [Aldactone] 25 mg PO DAILY 12/28/23 02/09/24 Allergies Allergy/AdvReac Type Severity Reaction Status Date / Time sulfamethoxazole Allergy Unknown, Verified 02/09/24 15:01 [From Bactrim] family allergy trimethoprim [From Bactrim] Allergy Unknown, Verified 02/09/24 15:01 family allergy furosemide [From Lasix] AdvReac Rash/Hives Verified 02/09/24 15:01 Review of Systems ROS Statement: Those systems with pertinent positive or pertinent negative responses have been documented in the HPI. ROS Other: All systems not noted in ROS Statement are negative. Constitutional: Reports: weakness. Denies: fever, chills ENT: Denies: congestion Respiratory: Reports: dyspnea. Denies: cough, wheezes, hemoptysis Cardiovascular: Reports: dyspnea on exertion, edema (Chronic). Denies: chest pain, palpitations, orthopnea, syncope Gastrointestinal: Reports: diarrhea. Denies: abdominal pain, nausea, vomiting, constipation, melena, hematochezia Genitourinary: Denies: dysuria, hematuria Musculoskeletal: Denies: back pain Skin: Denies: rash Neurological: Denies: headache, weakness, numbness Past Medical History Past Medical History: GERD/Reflux, Hypertension, Liver Disease, Renal Disease Additional Past Medical History / Comment(s): immunodeficiency, SOB pleural effusions requiring multiple Rt thoracentesis, low platelet count History of Any Multi-Drug Resistant Organisms: MRSA Date of last positivie culture/infection: 08/23/2009 MDRO Source:: open wound bilateral arms healed Past Surgical History: Hysterectomy Additional Past Surgical History / Comment(s): common variable immune deficice ncy, multiple paracentesis last in may 2023, colonoscopy with polyp removal, TIPS Jan 2023, thoracentesis Past Anesthesia/Blood Transfusion Reactions: No Reported Reaction Additional Past Anesthesia/Blood Transfusion Reaction / Comment(s): Slow to wake up. Past Psychological History: Anxiety, Depression Smoking Status: Never smoker - Past Family History Father Additional Family Medical History / Comment(s): Patient's father at age 92 from CVA. He also had a degenerative muscle disorder. Mother Additional Family Medical History / Comment(s): Mother is alive at age 90 with no major medical problems. Brother(s) Additional Family Medical History / Comment(s): Patient is a total of 5 siblings with no major medical problems. Patient has one daughter with no major medical problems. General Exam Limitations: no limitations General appearance: alert, in distress (Mild tachypnea noted) Head exam: Present: atraumatic, normocephalic Eye exam: Present: normal appearance. Absent: scleral icterus, conjunctival injection ENT exam: Present: normal oropharynx Neck exam: Present: normal inspection Respiratory exam: Present: normal lung sounds bilaterally, respiratory distress (Mild tachypnea). Absent: wheezes, rales, rhonchi, stridor, accessory muscle use Cardiovascular Exam: Present: regular rate, normal rhythm, normal heart sounds. Absent: systolic murmur, diastolic murmur, rubs, gallop GI/Abdominal exam: Present: soft. Absent: distended, tenderness, guarding, rebound, rigid, mass Extremities exam: Present: full ROM, normal capillary refill, pedal edema. Absent: tenderness, calf tenderness Back exam: Present: normal inspection. Absent: CVA tenderness (R), CVA tender ness (L) Neurological exam: Present: alert Skin exam: Present: warm, dry, intact, erythema. Absent: rash Course Vital Signs 02/09/24 02/09/24 02/09/24 13:21 13:29 14:36 Temperature 96.4 F L Pulse Rate 95 83 Respiratory 22 26 H 23 Rate Blood Pressure 95/44 86/50 O2 Sat by Pulse 96 97 Oximetry Fraction of Inspired Oxygen (FIO2) 02/09/24 02/09/24 02/09/24 15:26 15:59 16:04 Temperature Pulse Rate 82 89 Respiratory 22 20 Rate Blood Pressure 92/55 87/62 91/45 O2 Sat by Pulse 96 97 Oximetry Fraction of Inspired Oxygen (FIO2) 02/09/24 02/09/24 02/09/24 17:16 19:19 19:25 Temperature Pulse Rate 89 97 Respiratory 20 18 Rate Blood Pressure 93/56 93/61 O2 Sat by Pulse 96 95 95 Oximetry Fraction of 50 Inspired Oxygen (FIO2) 02/09/24 02/09/24 02/09/24 20:30 21:45 22:00 Temperature Pulse Rate 99 101 H 103 H Respiratory 17 19 20 Rate Blood Pressure 78/49 81/44 83/43 O2 Sat by Pulse 95 95 91 L Oximetry Fraction of Inspired Oxygen (FIO2) 02/09/24 02/09/24 02/09/24 22:05 22:10 22:20 Temperature Pulse Rate 103 H 102 H 102 H Respiratory 19 22 20 Rate Blood Pressure 84/48 87/39 86/42 O2 Sat by Pulse 95 94 L 95 Oximetry Fraction of Inspired Oxygen (FIO2) 02/09/24 02/09/24 02/09/24 22:25 22:30 22:35 Temperature Pulse Rate 103 H 102 H 101 H Respiratory 21 19 20 Rate Blood Pressure 93/48 93/48 95/44 O2 Sat by Pulse 94 L 91 L 93 L Oximetry Fraction of Inspired Oxygen (FIO2) 02/09/24 02/09/24 02/09/24 22:40 22:45 22:50 Temperature Pulse Rate 107 H 105 H 107 H Respiratory 37 H 29 H 35 H Rate Blood Pressure 87/37 97/43 96/43 O2 Sat by Pulse 93 L 91 L 90 L Oximetry Fraction of Inspired Oxygen (FIO2) 02/09/24 02/09/24 02/09/24 22:55 23:00 23:10 Temperature Pulse Rate 107 H 105 H 105 H Respiratory 41 H 30 H 34 H Rate Blood Pressure 96/41 86/46 73/41 O2 Sat by Pulse 95 96 97 Oximetry Fraction of Inspired Oxygen (FIO2) 02/09/24 02/09/24 02/09/24 23:14 23:15 23:20 Temperature 98.6 F Pulse Rate 108 H 102 H 108 H Respiratory 35 H 25 H 36 H Rate Blood Pressure 83/44 83/44 72/40 O2 Sat by Pulse 94 L 94 L 94 L Oximetry Fraction of Inspired Oxygen (FIO2) 02/09/24 02/09/24 02/09/24 23:22 23:25 23:27 Temperature 98.6 F Pulse Rate 105 H 109 H Respiratory 22 37 H Rate Blood Pressure 87/43 85/37 O2 Sat by Pulse 96 95 Oximetry Fraction of Inspired Oxygen (FIO2) 02/09/24 02/09/24 02/09/24 23:30 23:35 23:38 Temperature 98.6 F Pulse Rate 110 H 101 H 103 H Respiratory 37 H 28 H 26 H Rate Blood Pressure 79/57 77/41 79/51 O2 Sat by Pulse 94 L 94 L 96 Oximetry Fraction of Inspired Oxygen (FIO2) 02/09/24 02/09/24 23:40 23:45 Temperature Pulse Rate 102 H 102 H Respiratory 30 H 26 H Rate Blood Pressure 77/41 78/37 O2 Sat by Pulse 94 L 94 L Oximetry Fraction of Inspired Oxygen (FIO2) Medical Decision Making - Medical Decision Making The patient had chest x-ray that I interpreted as positive for large right pleural effusion. No pneumothorax or congestive heart failure. Patient is 73-year-old woman with history of chronic liver disease, history of cirrhosis, status post TIPS procedure, history of chronic kidney disease, history of right pleural effusion. The patient presents with dyspnea and is found to have recurrence of the right pleural effusion. Patient also does have increased kidney numbers but she had been having a moderate number of bowel movements, she had increased her lactulose due to concerns of high ammonia level and reports having " a lot of diarrhea," yesterday. Will have pulmonology consultation regarding the recurrent pleural effusion. The patient is given prophylactic antibiotic coverage, will have ID consult related to the possibly of cellulitis. Initial bolus limited as patient presents with obvious total body fluid overload. Was pt. sent in by a medical professional or institution (, PA, ALLOPATHIC DOCTOR, urgent care, hospital, or senior living...) When possible be specific @ -[No] Did you speak to anyone other than the patient for history (EMS, parent, family, police, friend...)? What history was obtained from this source @ -Patient's family did contribute to history Did you review nursing and triage notes (agree or disagree)? Why? @ -[I reviewed and agree with nursing and triage notes] Were old charts reviewed (outside hosp., previous admission, EMS record, old EKG, old radiological studies, urgent care reports/EKG's, senior living records)? Report findings @ -[No old charts were reviewed] Differential Diagnosis (chest pain, altered mental status, abdominal pain women, abdominal pain men, vaginal bleeding, weakness, fever, dyspnea, syncope, headache, dizziness, GI bleed, back pain, seizure, CVA, palpatations, mental health, musculoskeletal)? @ -[Differential Dyspnea: Coronary syndrome, arrhythmia, tamponade, asthma, COPD, pulmonary embolism, pneumonia, pneumothorax, pulmonary effusion, anaphylaxis, diabetic ketoacidosis, flailed chest, pulmonary contusion, diaphragmatic rupture, anemia, neuromuscular, this is not meant to be an all-inclusive list. EKG interpreted by me (3pts min.). @ -[I interpreted as above] X-rays interpreted by me (1pt min.). @ -[I interpreted as above CT interpreted by me (1pt min.). @ -[None done] U/S interpreted by me (1pt. min.). @ -[None done] What testing was considered but not performed or refused? (CT, X-rays, U/S, labs)? Why? @ -[None] What meds were considered but not given or refused? Why? @ -[None] Did you discuss the management of the patient with other professionals (professionals i.e. , PA, ALLOPATHIC DOCTOR, lab, RT, psych nurse, social sciences professor, second crusher, teacher, education officer, window caser)? Give summary @ -[Case discussed with admitting physician and treatment recommendations incorporated Was smoking cessation discussed for >3mins.? @ -[No] Was critical care preformed (if so, how long)? @ -[N yes, 35 minutes Were there social determinants of health that impacted care today? How? (Homelessness, low income, unemployed, alcoholism, drug addiction, transportation, low edu. Level, literacy, decrease access to med. care, senior care, rehab)? @ -[No] Was there de-escalation of care discussed even if they declined (Discuss DNR or withdrawal of care, Hospice)? DNR status @ -[No] What co-morbidities impacted this encounter? (DM, HTN, Smoking, COPD, CAD, Cancer, CVA, ARF, Chemo, Hep., AIDS, mental health diagnosis, sleep apnea, morbid obesity)? @ -[Cirrhosis/chronic liver disease, SCID Was patient admitted / discharged? Hospital course, mention meds given and route, prescriptions, significant lab abnormalities, going to OR and other pertinent info. @ -[hospital course] Undiagnosed new problem with uncertain prognosis? @ -[No] Drug Therapy requiring intensive monitoring for toxicity (Heparin, Nitro, Insulin, Cardizem)? @ -[No] Were any procedures done? @ -[No] Diagnosis/symptom? @ -[Recurrent pleural effusion Acute cellulitis Sepsis Acute kidney injury Acute, or Chronic, or Acute on Chronic? @ -[Acute Uncomplicated (without systemic symptoms) or Complicated (systemic symptoms)? @ -[Complicated by acute kidney injury Side effects of treatment? @ -[No] Exacerbation, Progression, or Severe Exacerbation? @ -[No] Poses a threat to life or bodily function? How? (Chest pain, [place], [place], pneumonia, PE, COPD, DKA, ARF, appy, cholecystitis, CVA, Diverticulitis, Homicidal, Suicidal, threat to staff... and all critical care pts) @ -[Yes - Lab Data Result diagrams: 02/12/24 04:30 02/12/24 04:30 Lab Results 02/09/24 02/09/24 02/09/24 Range/Units 13:50 13:52 13:52 WBC 3.2 L (3.8-10.6) k/uL RBC 4.27 (3.80-5.40) m/uL Hgb 13.1 (11.4-16.0) gm/dL Hct 39.2 (34.0-46.0) % MCV 91.6 (80.0-100.0) fL MCH 30.5 (25.0-35.0) pg MCHC 33.3 (31.0-37.0) g/dL RDW 18.5 H (11.5-15.5) % Plt Count 14 L* (150-450) k/uL MPV 7.8 Neutrophils % (Manual) 72 % Band Neuts % (Manual) 14 % Lymphocytes % (Manual) 10 % Monocytes % (Manual) 5 % Neutrophils # (Manual) 2.70 (1.3-7.7) k/uL Lymphocytes # (Manual) 0.32 L (1.0-4.8) k/uL Monocytes # (Manual) 0.16 (0-1.0) k/uL Nucleated RBCs 0 (0-0) /100 WBC Manual Slide Review Performed Toxic Granulation Present Toxic Vacuolation Present Hypochromasia Slight Poikilocytosis Moderate Anisocytosis Slight PT 12.2 (10.0-12.5) sec INR 1.1 (<1.2) APTT 29.3 (22.0-30.0) sec Sodium (137-145) mmol/L Potassium (3.5-5.1) mmol/L Chloride (98-107) mmol/L Carbon Dioxide (22-30) mmol/L Anion Gap mmol/L BUN (7-17) mg/dL Creatinine (0.52-1.04) mg/dL Est GFR (CKD-EPI)AfAm (>60 ml/min/1.73 sqM) Est GFR (CKD-EPI)NonAf (>60 ml/min/1.73 sqM) Glucose (74-99) mg/dL Lactic Ac Sepsis Rflx Plasma Lactic Acid Duglas (0.7-2.0) mmol/L Calcium (8.4-10.2) mg/dL Total Bilirubin (0.2-1.3) mg/dL AST (14-36) U/L ALT (4-34) U/L Alkaline Phosphatase (38-126) U/L Ammonia (<30) umol/L Troponin I (0.000-0.034) ng/mL Total Protein (6.3-8.2) g/dL Albumin (3.5-5.0) g/dL Amylase (30-110) U/L Lipase (23-300) U/L Blood Type B Negative Blood Type Recheck B Neg Bld Type Recheck Status No Antibody Screen NEGATIVE Spec Expiration Date 02/12/2024 - 234902/09/24 02/09/24 02/09/24 Range/Units 13:52 13:52 13:52 WBC (3.8-10.6) k/uL RBC (3.80-5.40) m/uL Hgb (11.4-16.0) gm/dL Hct (34.0-46.0) % MCV (80.0-100.0) fL MCH (25.0-35.0) pg MCHC (31.0-37.0) g/dL RDW (11.5-15.5) % Plt Count (150-450) k/uL MPV Neutrophils % (Manual) % Band Neuts % (Manual) % Lymphocytes % (Manual) % Monocytes % (Manual) % Neutrophils # (Manual) (1.3-7.7) k/uL Lymphocytes # (Manual) (1.0-4.8) k/uL Monocytes # (Manual) (0-1.0) k/uL Nucleated RBCs (0-0) /100 WBC Manual Slide Review Toxic Granulation Toxic Vacuolation Hypochromasia Poikilocytosis Anisocytosis PT (10.0-12.5) sec INR (<1.2) APTT (22.0-30.0) sec Sodium 137 (137-145) mmol/L Potassium 3.4 L (3.5-5.1) mmol/L Chloride 106 (98-107) mmol/L Carbon Dioxide 20 L (22-30) mmol/L Anion Gap 11 mmol/L BUN 66 H (7-17) mg/dL Creatinine 2.62 H (0.52-1.04) mg/dL Est GFR (CKD-EPI)AfAm 20 (>60 ml/min/1.73 sqM) Est GFR (CKD-EPI)NonAf 18 (>60 ml/min/1.73 sqM) Glucose 67 L (74-99) mg/dL Lactic Ac Sepsis Rflx Plasma Lactic Acid Duglas 4.3 H* (0.7-2.0) mmol/L Calcium 9.0 (8.4-10.2) mg/dL Total Bilirubin 3.0 H (0.2-1.3) mg/dL AST 87 H (14-36) U/L ALT 72 H (4-34) U/L Alkaline Phosphatase 250 H (38-126) U/L Ammonia 46 H (<30) umol/L Troponin I 0.016 (0.000-0.034) ng/mL Total Protein 4.4 L (6.3-8.2) g/dL Albumin 2.3 L (3.5-5.0) g/dL Amylase 134 H (30-110) U/L Lipase 869 H (23-300) U/L Blood Type Blood Type Recheck Bld Type Recheck Status Antibody Screen Spec Expiration Date 02/09/24 Range/Units 14:45 WBC (3.8-10.6) k/uL RBC (3.80-5.40) m/uL Hgb (11.4-16.0) gm/dL Hct (34.0-46.0) % MCV (80.0-100.0) fL MCH (25.0-35.0) pg MCHC (31.0-37.0) g/dL RDW (11.5-15.5) % Plt Count (150-450) k/uL MPV Neutrophils % (Manual) % Band Neuts % (Manual) % Lymphocytes % (Manual) % Monocytes % (Manual) % Neutrophils # (Manual) (1.3-7.7) k/uL Lymphocytes # (Manual) (1.0-4.8) k/uL Monocytes # (Manual) (0-1.0) k/uL Nucleated RBCs (0-0) /100 WBC Manual Slide Review Toxic Granulation Toxic Vacuolation Hypochromasia Poikilocytosis Anisocytosis PT (10.0-12.5) sec INR (<1.2) APTT (22.0-30.0) sec Sodium (137-145) mmol/L Potassium (3.5-5.1) mmol/L Chloride (98-107) mmol/L Carbon Dioxide (22-30) mmol/L Anion Gap mmol/L BUN (7-17) mg/dL Creatinine (0.52-1.04) mg/dL Est GFR (CKD-EPI)AfAm (>60 ml/min/1.73 sqM) Est GFR (CKD-EPI)NonAf (>60 ml/min/1.73 sqM) Glucose (74-99) mg/dL Lactic Ac Sepsis Rflx Y Plasma Lactic Acid Duglas (0.7-2.0) mmol/L Calcium (8.4-10.2) mg/dL Total Bilirubin (0.2-1.3) mg/dL AST (14-36) U/L ALT (4-34) U/L Alkaline Phosphatase (38-126) U/L Ammonia (<30) umol/L Troponin I (0.000-0.034) ng/mL Total Protein (6.3-8.2) g/dL Albumin (3.5-5.0) g/dL Amylase (30-110) U/L Lipase (23-300) U/L Blood Type Blood Type Recheck Bld Type Recheck Status Antibody Screen Spec Expiration Date - EKG Data -: EKG Interpreted by Me EKG shows normal: sinus rhythm, axis (Normal), intervals (Normal), QRS complexes (Normal), ST-T waves Rate: normal (Rate 90 bpm) Disposition Clinical Impression: Liver cirrhosis, Cellulitis of right leg, Pleural effusion, Thrombocytopenia, Diarrhea, Acute kidney injury Disposition: ADMITTED IP TO THIS HOSP Condition: Poor Is patient prescribed a controlled substance at d/c from ED?: No
[2024-02-09 14:29] LABS: INR 1.1 (<1.2); Partial Thromboplastin Time 29.3 sec (22.0-30.0); Prothrombin Time 12.2 sec (10.0-12.5)
--- NOTE | 2024-02-09 14:31 | XR ---
EXAMINATION TYPE: XR chest 2V DATE OF EXAM: 02/09/2024 COMPARISON: 02/06/2024 CLINICAL INDICATION: Female, 73 years old with history of dyspnea; , TECHNIQUE: XR chest 2V views of the chest. FINDINGS: Increased significant progression of pleural fluid on the right with a large effusion now seen. Near complete opacification right hemithorax. Subsegmental changes left lung base stable. No obvious pneum othorax. Osseous structures unchanged. Heart size stable. IMPRESSION: 1. Interval marked progression of consolidation and pleural fluid on the right with a large right-lazaro ed pleural effusion. 2. Stable left lower lobe infiltrate. [facility], , 02/09/2024 2:29 PM
[2024-02-09 14:32] LABS: Anisocytosis Slight; HCT 39.2 % (34.0-46.0); HGB 13.1 gm/dL (11.4-16.0); Hypochromasia Slight; MCH 30.5 pg (25.0-35.0); MCHC 33.3 g/dL (31.0-37.0); MCV 91.6 fL (80.0-100.0); Mean Platelet Volume 7.8; Poikilocytosis Moderate; RBC 4.27 m/uL (3.80-5.40); RDW 18.5 % (11.5-15.5); WBC 3.2 k/uL (3.8-10.6)
[2024-02-09 14:33] LABS: ALT 72 U/L (4-34); AST 87 U/L (14-36); African American GFR (CKD) 20 (>60 ml/min/1.73 sqM); Albumin 2.3 g/dL (3.5-5.0); Alkaline Phosphatase 250 U/L (38-126); Amylase 134 U/L (30-110); Anion Gap 11 mmol/L; Blood Urea Nitrogen 66 mg/dL (7-17); Carbon Dioxide 20 mmol/L (22-30); Chloride 106 mmol/L (98-107); Glucose 67 mg/dL (74-99); Lipase 869 U/L (23-300); Non-African American GFR(CKD) 18 (>60 ml/min/1.73 sqM); Potassium 3.4 mmol/L (3.5-5.1); Sodium 137 mmol/L (137-145); Total Protein 4.4 g/dL (6.3-8.2)
[2024-02-09 14:45] LABS: Lactic Acid, Venous 4.3 mmol/L (0.7-2.0)
[2024-02-09] MEDS: MORPHINE SULFATE 4 MG/ML SYRINGE IV STA (16:01)
[2024-02-09] MEDS: SODIUM CHLORIDE 0.9% 500 ML 500 ML IV STA (16:02)
[2024-02-09 16:12] LABS: Band Neutrophils % 14 %; Lymphocytes # (M) 0.32 k/uL (1.0-4.8); Monocytes # (M) 0.16 k/uL (0-1.0); Neutrophils % (M) 72 %; Nucleated Red Blood Cells 0 /100 WBC (0-0); Total Cells Counted 200
[2024-02-09 16:14] LABS: Toxic Granulation Present; Toxic Vacuolation Present
[2024-02-09 16:16] LABS: Platelet Count 14 k/uL (150-450)
[2024-02-09] MEDS ORDERED: NALOXONE 0.4 MG/ML 1 ML VIAL IV PRN (16:58)
[2024-02-09] MEDS: SODIUM CHLORIDE 0.9% 1,000 ML IV SCH (17:16)
[2024-02-09] MEDS: SODIUM CHLORIDE 0.9% 500 ML 500 ML IV ONE (21:08)
[2024-02-09] MEDS ORDERED: VANCOMYCIN IV PER PHARMACY 1 EACH MISC MISCELLANE PRN (21:21)
[2024-02-09] MEDS: SODIUM CHLORIDE 0.9% 1,000 ML IV ONE (21:39)
[2024-02-09] MEDS: NOREPINEPHRINE 4 MG in SODIUM CHLORIDE 0.9% 250 ML IV SCH (21:43)
[2024-02-09 23:46] LABS: Glucose,Whole Blood 74 mg/dL (70-110)
[2024-02-10] MEDS: VANCOMYCIN 1,250 MG in SODIUM CHLORIDE 0.9% 250 ML IVPB ONE ×2 (00:04→20:40)
[2024-02-10] MEDS: VASOPRESSIN 60 UNIT in SODIUM CHLORIDE 0.9% 150 ML IV SCH (01:23)
[2024-02-10 02:11] LABS: Appearance,Urine Cloudy (Clear); Bacteria,Urine Occasional /hpf; Bilirubin,Urine 1+ (Negative); Blood,Urine Negative (Negative); Color,Urine Dark Brown; Fatty Casts,Urine 3 /lpf (0); Glucose,Urine (UA) Negative (Negative); Hyaline Casts,Urine 19 /lpf (0-2); Ketones,Urine Negative (Negative); Leukocyte Esterase,Urine Negative (Negative); Mucus,Urine Rare /hpf; Nitrite,Urine Negative (Negative); Protein,Urine Negative (Negative); RBC,Urine <1 /hpf (0-5); Specific Gravity,Urine 1.017 (1.001-1.035); Squamous Epithelial Cell,Urine <1 /hpf (0-4); WBC,Urine 1 /hpf (0-5)
[2024-02-10 05:37] LABS: Glucose,Whole Blood 79 mg/dL (70-110)
[2024-02-10] MEDS: SODIUM BICARB 8.4% 50 ML SYR (1 MEQ/ML) IV STA (05:54)
[2024-02-10 06:01] LABS: Anisocytosis Slight; HCT 37.4 % (34.0-46.0); HGB 11.8 gm/dL (11.4-16.0); Hypochromasia Marked; MCH 30.4 pg (25.0-35.0); MCHC 31.5 g/dL (31.0-37.0); MCV 96.8 fL (80.0-100.0); Macrocytosis Slight; Mean Platelet Volume 8.8; Poikilocytosis Moderate; RBC 3.86 m/uL (3.80-5.40); RDW 18.7 % (11.5-15.5); WBC 7.6 k/uL (3.8-10.6)
[2024-02-10 06:10] LABS: Platelet Count 19 k/uL (150-450)
--- NOTE | 2024-02-10 06:10 | P.CNPUL ---
History of Present Illness Consult date: 02/10/24 Requesting physician: Salvador Landin Reason for consult: pleural effusion, other Chief complaint: Shortness of breath History of present illness: Patient is a 73-year-old female with past medical history significant for common variable immunodeficiency, liver cirrhosis, abdominal ascites, TIPS procedure, and recurrent right-sided pleural effusion. Pulmonary consult was originally placed for recurrent right-sided pleural effusion. Patient has had multiple previous right-sided thoracentesis in the past. Last thoracentesis was on 02/06/24, a total of 2.5 L of fluid was removed at that time. In the past fluid cytology has been negative for malignant cells. As reported above, patient does have liver cirrhosis and history of ascites with frequent paracentesis status post TIPS procedure. She does follow at the [facility]. Patient presents back to the ED yesterday afternoon complaining chiefly of progressively worsening shortness of breath. Also, reports from the ER provider, of large volume diarrhea. She does take lactulose outpatient. Chest x-ray showing a recurrent large right-sided pleural effusion. While in emergency department as an overflow, noted to be hypotensive, she was bolused with a total of 2 L normal saline, and started on normal saline at 130 mL/h. Remained hypotensive, and started on norepinephrine by the ER provider. She was then transferred to the intensive care unit. CBC: WBC count 3.2, hemoglobin 13.1, hematocrit 39.2, platelets low at 14,000. CMP: Sodium 137, potassium 3.4, chloride 106, serum bicarb 20, BUN 66, creatinine higher than baseline at 2.62, glucose 67. Lactic elevated at 4.3 and down to 3.7. LFTs are mildly elevated. Ammonia 46. She does take lactulose on an outpatient basis. Troponin 0.016. Amylase 134, lipase 869. Albumin 2.3. Patient was started on empiric antibiotics in the form of Rocephin and vancomycin in the ED. Patient is currently being evaluated in room 263. Currently, patient is lethargic she is unable to provide information for HPI. Unfortunately, no family present. Current vital signs include a heart rate of 100 bpm, blood pressure is hypotensive at 71/37 mmHg. Norepinephrine is being titrated up, and she may need second vasopressor. Normal saline also infusing at 130 mL/h. She is afebrile. Breathing is tachypneic. She is on 5 L/min nasal cannula. SpO2 is reading 94%. Markedly diminshed lung sounds on the right. Right lower extremity is erythemic and painful. Prognosis guarded. Review of Systems ROS unobtainable: due to mental status Past Medical History Past Medical History: GERD/Reflux, Hypertension, Liver Disease, Renal Disease Additional Past Medical History / Comment(s): immunodeficiency, SOB pleural effusions requiring multiple Rt thoracentesis, low platelet count History of Any Multi-Drug Resistant Organisms: MRSA Date of last positivie culture/infection: 08/23/2009 MDRO Source:: open wound bilateral arms healed Past Surgical History: Hysterectomy Additional Past Surgical History / Comment(s): common variable immune deficicency, multiple paracentesis last in may 2023, colonoscopy with polyp removal, TIPS Jan 2023, thoracentesis Past Anesthesia/Blood Transfusion Reactions: No Reported Reaction Additional Past Anesthesia/Blood Transfusion Reaction / Comment(s): Slow to wake up. Past Psychological History: Anxiety, Depression Smoking Status: Never smoker - Past Family History Father Additional Family Medical History / Comment(s): Patient's father at age 92 from CVA. He also had a degenerative muscle disorder. Mother Additional Family Medical History / Comment(s): Mother is alive at age 90 with no major medical problems. Brother(s) Additional Family Medical History / Comment(s): Patient is a total of 5 siblings with no major medical problems. Patient has one daughter with no major medical problems. Medications and Allergies Home Medications Medication Instructions Recorded Confirmed Type traMADol HCL 50 mg PO BID PRN 08/29/19 02/09/24 History Immun Glob G(IgG)/Pro/Iga 0-50 1 dose IV FR 08/12/23 02/09/24 History [Hizentra 10 Gram/50 ml Syringe] ALPRAZolam [Xanax] 1 mg PO BID PRN 12/28/23 02/09/24 History Aspirin EC [Ecotrin Low Dose] 81 mg PO DAILY 12/28/23 02/09/24 History Bumetanide [BUMEX] 1 mg PO DAILY 12/28/23 02/09/24 History Spironolactone [Aldactone] 25 mg PO DAILY 12/28/23 02/09/24 History Allergies Allergy/AdvReac Type Severity Reaction Status Date / Time sulfamethoxazole Allergy Unknown, Verified 02/09/24 15:01 [From Bactrim] family allergy trimethoprim [From Bactrim] Allergy Unknown, Verified 02/09/24 15:01 family allergy furosemide [From Lasix] AdvReac Rash/Hives Verified 02/09/24 15:01 Physical Exam Vitals: Vital Signs Temp Pulse Resp BP Pulse Ox 02/09/24 23:38 98.6 F 103 H 26 H 79/51 96 02/09/24 23:27 98.6 F 02/09/24 23:22 105 H 22 87/43 96 02/09/24 23:10 105 H 34 H 73/41 97 02/09/24 23:00 105 H 30 H 86/46 96 02/09/24 22:55 107 H 41 H 96/41 95 02/09/24 22:50 107 H 35 H 96/43 90 L 02/09/24 22:45 105 H 29 H 97/43 91 L 02/09/24 22:40 107 H 37 H 87/37 93 L 02/09/24 22:35 101 H 20 95/44 93 L 02/09/24 22:30 102 H 19 93/48 91 L 02/09/24 22:25 103 H 21 93/48 94 L 02/09/24 22:20 102 H 20 86/42 95 02/09/24 22:10 102 H 22 87/39 94 L 02/09/24 22:05 103 H 19 84/48 95 02/09/24 22:00 103 H 20 83/43 91 L 02/09/24 21:45 101 H 19 81/44 95 02/09/24 20:30 99 17 78/49 95 02/09/24 19:25 97 18 93/61 95 02/09/24 17:16 89 20 93/56 96 02/09/24 16:04 89 20 91/45 97 02/09/24 15:59 87/62 02/09/24 15:26 82 22 92/55 96 02/09/24 14:36 83 23 86/50 97 02/09/24 13:29 26 H 02/09/24 13:21 96.4 F L 95 22 95/44 96 Intake and Output 02/09/24 02/09/24 02/10/24 14:59 22:59 06:59 Intake Total Balance Intake: Intake, IV Titration Amount Norepinephrine 4 mg In . Sodium Chloride 0.9% 250 ml @ 0.03 MCG/KG/MIN 7. 777 mls/hr IV .Q24H [facility] Rx#:[id number] Other: Weight 68.039 kg GENERAL EXAM: Lethargic, 73-year-old white female, appears quite debilitated, weak, not in any distress HEAD: Normocephalic and atraumatic EYES: Normal reaction of pupils, equal size. NOSE: Clear with pink turbinates. THROAT: No erythema or exudates. NECK: No masses, no JVD. CHEST: No chest wall deformity. LUNGS: Equal air entry with markedly diminished right lung. Left basilar crackles. On 5 L/min nasal cannula. Tachypneic. No accessory muscle use. CVS: S1 and S2 normal with systolic murmur, grade 2, regular rhythm. No other extra heart sounds ABDOMEN: Abdomen is mildly distended but soft, no guarding or rigidity, no hepatosplenomegaly, active bowel sounds SPINE: No scoliosis or deformity SKIN: Scattered purpura/petechiae; possible lower extremity cellulitis CENTRAL NERVOUS SYSTEM: Lethargic, follows simple commands, no focal deficits, tone is normal in all 4 extremities. EXTREMITIES: There is 3-4+ bilateral lower extremity pitting edema. No clubbing, or cyanosis. Peripheral pulses are intact. Results - Laboratory Findings CBC and BMP: 02/10/24 05:32 02/10/24 05:32 PT/INR, D-dimer PT 12.2 sec (10.0-12.5) 02/09/24 13:52 INR 1.1 (<1.2) 02/09/24 13:52 Abnormal lab findings: Abnormal Labs 02/09/24 02/09/24 02/09/24 13:52 13:52 13:52 WBC 3.2 L RDW 18.5 H Plt Count 14 L* Lymphocytes # (Manual) 0.32 L Potassium 3.4 L Carbon Dioxide 20 L BUN 66 H Creatinine 2.62 H Glucose 67 L Plasma Lactic Acid Duglas 4.3 H* Total Bilirubin 3.0 H AST 87 H ALT 72 H Alkaline Phosphatase 250 H Ammonia 46 H Total Protein 4.4 L Albumin 2.3 L Amylase 134 H Lipase 869 H 02/09/24 02/09/24 17:51 20:59 WBC RDW Plt Count Lymphocytes # (Manual) Potassium Carbon Dioxide BUN Creatinine Glucose Plasma Lactic Acid Duglas 3.8 H* 3.7 H* Total Bilirubin AST ALT Alkaline Phosphatase Ammonia Total Protein Albumin Amylase Lipase Assessment and Plan Assessment: Hypotension and shock, refractory to fluid resuscitation, requiring vasopressors. The possibility of sepsis/septic shock is not excluded, although particular source has not yet been identified. Pancultures pending. Empiric broad-spectrum antibiotics were added in the form of Rocephin and vancomycin in the ED. Recurrent right-sided pleural effusion, with multiple previous right-sided thoracentesis in the past. Last thoracentesis was on 02/06/24, a total of 2.5 L of fluid was removed at that time. In the past fluid cytology has been negative for malignant cells. Acute hypoxemic respiratory failure, currently on 5 L/min nasal cannula, secondary to above History of liver cirrhosis and abdominal ascites, status post TIPS procedure Chronic thrombocytopenia, secondary to above, lower than baseline at 14,000 Lipase is 869, abdomen not particular tender on examination Lactic acidosis, lactic acid level is at 4.5 Hyperammonemia, takes lactulose on outpatient basis Metabolic encephalopathy, secondary to above and possible sepsis Bilateral lower extremity edema, with the possibility of right lower extremity cellulitis Acute on chronic kidney disease, likely second to hypotension and ATN History of common variable immunodeficiency, receives IgG Plan: Patient's medications, labs, chest x-ray reviewed Continue norepinephrine infusion to maintain MAP above 60 mmHg or greater, will likely require second vasopressor. Continue empiric antibiotics. Cover for SBP; although, abdomen does not appear particularly acute on examination. Currently on 5 L/min nasal cannula, titrate to maintain oxygen saturation of 92% or greater Patient has a recurrent right-sided pleural effusion Will need right-sided thoracentesis Platelets 14,000, lower than baseline, may need platelet transfusion prior to procedure Case discussed with Dr. Chester, further recommendations to follow. Condition is currently critical, prognosis is guarded. I have personally seen and examined the patient, performed the documentation and the assessment and plan as written. Number of minutes spent on the visit:20 This is a joint evaluation that was done along with the nurse practitioner. The patient presented with hypotension, sepsis, and shortness of breath. She is known to have liver cirrhosis and she underwent a recent thoracentesis of the right lung. Repeat chest x-ray from this current admission shows recurrence of a large right-sided pleural effusion and the patient is currently on a BiPAP at a pressure of 10 over 5 cm of water with an FiO2 of 50%. The patient is hypotensive. The patient received IV fluids overnight a total of 2 L and the patient is currently on norepinephrine running at 0.0 0.23 mcg/kg/min. Urine output is diminished. The patient has a component of an acute on top of chronic kidney injury. Platelet counts are down to 19. Hemoglobin is stable at 11.8. The patient is lethargic. She does have a positive blood culture with Klebsiella pneumoniae and the patient is currently on a combination of Rocephin and vancomycin. The source of the infection could be lower extremity cellulit is. UA was nonsuggestive of any infection. No abdominal pain or distention. She has a small amount of ascites Plan Will give the patient platelet concentrate and following that we will proceed wi th an insertion of a triple-lumen catheter as the patient needs a line for IV access and pressors. I also plan to do a bedside thoracentesis to optimize her respiratory status. IV fluids are currently at normal saline at 130 cc an hour. Monitor urine output. Monitor renal function. Ammonia level is 4040 is 46. Lactic acid level is at 4.5. Condition is critical. Prognosis poor based on above as the patient advanced liver disease/failure. Evaluation was done more than 30 minutes. Time with Patient: Greater than 30
[2024-02-10 06:29] LABS: African American GFR (CKD) 18 (>60 ml/min/1.73 sqM); Non-African American GFR(CKD) 16 (>60 ml/min/1.73 sqM)
--- NOTE | 2024-02-10 07:17 | CT ---
EXAM: CT Abdomen and Pelvis Without Intravenous Contrast CLINICAL HISTORY: abdominal pain; severe sepsis TECHNIQUE: Axial computed tomography images of the abdomen and pelvis without intravenous contrast. CTDI is 8.9 mGy and DLP is 544.4 mGy-cm. This CT exam was performed using one or more of the following dose reduction techniques: automated exposure control, adjustment of the mA and/or kV according to patient size, and/or use of iterative reconstruction technique. COMPARISON: CT August 12, 2023. FINDINGS: Pleural space: Very large right pleural effusion with atelectasis of the lower right lung. Mild diffuse infiltration and/or atelectasis in the left lung base. ABDOMEN: Liver: Cirrhosis. Gallbladder and bile ducts: Gallstones. No ductal dilation. Pancreas: Unremarkable. No ductal dilation. Spleen: Splenomegaly with spleen measuring 18.7 cm in length. Adrenals: Unremarkable. No mass. Kidneys and ureters: Unremarkable. No obstructing stones. No hydronephrosis. Stomach and bowel: Unremarkable. No obstruction. No mucosal thickening. PELVIS: Appendix: No findings to suggest acute appendicitis. Bladder: Unremarkable. No stones. ABDOMEN and PELVIS: Intraperitoneal space: Moderate amount of ascites, decreased from prior study. No free air. Bones/joints: No acute findings. Soft tissues: Unremarkable. Vasculature: Unremarkable. No abdominal aortic aneurysm. Lymph nodes: Unremarkable. No enlarged lymph nodes. Tubes, lines and devices: TIPS shunt in place. IMPRESSION: Cirrhosis and splenic megaly. Moderately large amount of ascites. Gallstones. Very large right pleural effusion with atelectasis of the lower right lung.
[2024-02-10 07:20] LABS: Band Neutrophils % 43 %; Eosinophils # (M) 0.15 k/uL (0-0.7); Lymphocytes # (M) 0.84 k/uL (1.0-4.8); Metamyelocytes # (M) 0.23 k/uL (0); Metamyelocytes % 3 %; Monocytes # (M) 0.53 k/uL (0-1.0); Neutrophils % (M) 34 %; Nucleated Red Blood Cells 0 /100 WBC (0-0); Total Cells Counted 100
[2024-02-10 07:21] LABS: Anisocytosis (M) Present; Polychromasia Present
[2024-02-10] MEDS: PANTOPRAZOLE 40 MG/10 ML VIAL IV SCH (08:06)
[2024-02-10 08:52] LABS: ALT 58 U/L (4-34); AST 76 U/L (14-36); African American GFR (CKD) 17 (>60 ml/min/1.73 sqM); Albumin 1.8 g/dL (3.5-5.0); Alkaline Phosphatase 165 U/L (38-126); Anion Gap 9 mmol/L; Blood Urea Nitrogen 70 mg/dL (7-17); Calcium 8.1 mg/dL (8.4-10.2); Carbon Dioxide 16 mmol/L (22-30); Chloride 111 mmol/L (98-107); Glucose 73 mg/dL (74-99); Non-African American GFR(CKD) 15 (>60 ml/min/1.73 sqM); Potassium 3.6 mmol/L (3.5-5.1); Sodium 136 mmol/L (137-145); Total Bilirubin 3.4 mg/dL (0.2-1.3); Total Protein 3.8 g/dL (6.3-8.2)
[2024-02-10 09:26] LABS: ABG Base Excess -7.2 mmol/L; ABG HCO3 20 mmol/L (21-25); ABG Oxygen Saturation 97.5 % (94-97); ABG PCO2 45 mmHg (35-45); ABG PH 7.25 (7.35-7.45); ABG PO2 94 mmHg (83-108); ABG TCO2 21 mmol/L (19-24); Allen Test Performed? Yes
[2024-02-10] MEDS: DEXTROSE 5% IN WATER 1,000 ML with SODIUM BICARB (1 MEQ/ML) 150 ML IV SCH (12:35)
--- NOTE | 2024-02-10 15:43 | XR ---
EXAMINATION TYPE: XR chest 1V portable DATE OF EXAM: 02/10/2024 3:32 PM COMPARISON: Chest radiographs from V6 24 CLINICAL INDICATION: Female, 73 years old with history of Post Thoracentesis; [facility] TECHNIQUE: XR chest 1V portable Frontal view of the chest. FINDINGS: Lungs/Pleura: No evidence of focal consolidation or pneumothorax. Blunting of the costophrenic angles is present. Pulmonary vascularity: Pulmonary vascular congestion. Heart/mediastinum: Cardiomediastinal silhouette is enlarged. Musculoskeletal: No acute osseous pathology. IMPRESSION: Reduction in right pleural effusion now small, Cardiomegaly, pulmonary vascular congestion and bilate ral pleural effusions. [facility], , 02/10/2024 3:41 PM
--- NOTE | 2024-02-10 15:59 | XR ---
EXAMINATION TYPE: XR chest 1V portable DATE OF EXAM: 02/10/2024 3:55 PM COMPARISON: Chest radiographs from 02/10/2024 CLINICAL INDICATION: Female, 73 years old with history of Central line placement; [facility] TECHNIQUE: XR chest 1V portable Frontal view of the chest. FINDINGS: Lungs/Pleura: There is no evidence of pleural effusion, focal consolidation, or pneumothorax. Pulmonary vascularity: Pulmonary vascular congestion. Heart/mediastinum: Cardiomediastinal silhouette is unremarkable. Musculoskeletal: No acute osseous pathology. Other findings: Upper abdominal stent grafts. Lines/Tubes: Right internal jugular central venous catheter with distal tip at the cavoatrial junction. IMPRESSION: Right central line with tip in appropriate position. No pneumothorax visualized Pulmonary edema present with serum BNP. [facility], , 02/10/2024 3:56 PM
[2024-02-10 18:12] LABS: Glucose,Whole Blood 115 mg/dL (70-110)
--- NOTE | 2024-02-10 18:59 | P.PCN ---
Date of Procedure: 02/10/24 Preoperative Diagnosis: Right-sided pleural effusion, septic shock Postoperative Diagnosis: Same Procedure(s) Performed: Right-sided thoracentesis Right IJ triple-lumen catheter insertion Anesthesia: local Surgeon: Soledad Chester Estimated Blood Loss (ml): 0 Pathology: other Condition: critical Disposition: ICU Operative Findings: Thoracentesis, right sided A time out was performed and the chest x-ray was reviewed, the appropriate side was confirmed and marked. My hands were washed immediately prior to the procedure. I wore a surgical cap, mask with protective eyewear, sterile gown and sterile gloves throughout the procedure. The patient was prepped and draped in a sterile manner using chlorhexidine scrub after the appropriate level was percussed and confirmed by ultrasound. 1% lidocaine was used to anesthesize the skin, subcutaneous tissue, superior aspect of the rib periosteum and parietal pleura. A finder needle was then introduced over the superior aspect of the rib to locate the pleural fluid; 2colored fluid was aspirated at a depth of approximately 2 cm. A 10-blade scalpel was used to myesha the skin at the insertion site. The [id number] needle was then introduced through the skin incision into the pleural space using negative aspiration pressure and the red colometric indicator to confirm appropriate positioning of the needle. The thoracentesis catheter was then threaded without difficulty 3000 ml of turbid colored fluid was removed without difficulty. The catheter was then removed. No immediate complications were noted during the procedure. A post-procedure chest x-ray is pending at the time of this note. The fluid will be sent for studies. Estimated blood loss is 0cc Triple-lumen catheter insertion Indication: Hemodynamic monitoring/Intravenous access. A time-out was completed verifying correct patient, procedure, site, positioning, and implant(s) or special equipment if applicable. The patient was placed in a dependent position appropriate for triple lumen catheter placement based on the vein to be cannulated. The patient's right internal jugular area was prepped and draped in sterile fashion. 1% Lidocaine was used to anesthetize the surrounding skin area. A triple lumen 9F Cordis catheter was introduced into the internal jugular vein using Seldinger technique. The catheter was threaded smoothly over the guide wire and appropriate blood return was obtained. Each lumen of the catheter was evacuated of air and flushed with sterile saline. The catheter was then sutured in place to the skin and a sterile dressing applied. Perfusion to the extremity distal to the point of catheter insertion was checked and found to be adequate.
--- NOTE | 2024-02-10 23:02 | P.HPIM ---
History of Present Illness H&P Date: 02/10/24 Chief Complaint: Shortness of breath Patient is a 73-year-old female with a past medical history of hypertension, history of pleural effusion with right-sided thoracentesis, thrombocytopenia, chronic liver disease, history of January 2023, multiple paracentesis, GERD and also common variable immunodeficiency, anxiety/depression. Patient was brought to the hospital due to complaints of shortness of breath. Patient has been having recurrent right-sided pleural effusion and what was last drained on January 27, 2024. Patient has been doing well until last couple of days started breath is getting worse. Patient is also having increasing watery stools she is also taking lactulose for ammonia level. Otherwise denied any fever or chills. No fever no chills. Denied any hematemesis or melena. No complaints of chest pain. Patient is also having chronic leg swelling.EKG on admission showed atrial fibrillation with heart rate 90. Chest x-ray showed interval marked progression of consolidation and pleural fluid on the right with a large right-sided pleural effusion. Stable left lower lobe infiltrate. CT of the abdomen pelvis showed cirrhosis and splenomegaly. Moderate to large amount of ascites. Gallstones. Very large right pleural effusion with atelecta sis of the lower right lung. Laboratory data showed WBC 3.8 hemoglobin 13.1 and platelets 14 Sodium 137 potassium 3.4 chloride 106 bicarb is 20 BUN 66 and creatinine 2.62, lactic acid 4.3 total bili 3.0 AST 87 ALT 72 and alk phos 250 and ammonia 46 Amylase 134 and lipase level is 869. Patient was hypotensive on admission with blood pressure 86/50 pulse is 83 respiration 23 and pulse ox 97% on 2 L via nasal cannula. Review of Systems ROS unobtainable: due to mental status Past Medical History Past Medical History: GERD/Reflux, Hypertension, Liver Disease, Renal Disease Additional Past Medical History / Comment(s): immunodeficiency, SOB pleural effusions requiring multiple Rt thoracentesis, low platelet count History of Any Multi-Drug Resistant Organisms: MRSA Date of last positivie culture/infection: 08/23/2009 MDRO Source:: open wound bilateral arms healed Past Surgical History: Hysterectomy Additional Past Surgical History / Comment(s): common variable immune deficicency, multiple paracentesis last in may 2023, colonoscopy with polyp removal, TIPS Jan 2023, thoracentesis Past Anesthesia/Blood Transfusion Reactions: No Reported Reaction Additional Past Anesthesia/Blood Transfusion Reaction / Comment(s): Slow to wake up. Past Psychological History: Anxiety, Depression Smoking Status: Never smoker - Past Family History Father Additional Family Medical History / Comment(s): Patient's father at age 92 from CVA. He also had a degenerative muscle disorder. Mother Additional Family Medical History / Comment(s): Mother is alive at age 90 with no major medical problems. Brother(s) Additional Family Medical History / Comment(s): Patient is a total of 5 siblings with no major medical problems. Patient has one daughter with no major medical problems. Medications and Allergies Home Medications Medication Instructions Recorded Confirmed Type RX: traMADol HCL 50 mg PO BID PRN 08/29/19 02/09/24 History RX: Immun Glob G(IgG)/Pro/Iga 0-50 1 dose IV FR 08/12/23 02/09/24 History [Hizentra 10 Gram/50 ml Syringe] RX: ALPRAZolam [Xanax] 1 mg PO BID PRN 12/28/23 02/09/24 History RX: Aspirin EC [Ecotrin Low Dose] 81 mg PO DAILY 12/28/23 02/09/24 History RX: Bumetanide [BUMEX] 1 mg PO DAILY 12/28/23 02/09/24 History RX: Spironolactone [Aldactone] 25 mg PO DAILY 12/28/23 02/09/24 History Allergies Allergy/AdvReac Type Severity Reaction Status Date / Time sulfamethoxazole Allergy Unknown, Verified 02/09/24 15:01 [From Bactrim] family allergy trimethoprim [From Bactrim] Allergy Unknown, Verified 02/09/24 15:01 family allergy furosemide [From Lasix] AdvReac Rash/Hives Verified 02/09/24 15:01 Physical Exam Vitals: Vital Signs Temp Pulse Resp BP Pulse Ox FiO2 02/10/24 10:15 90 23 100/49 97 02/10/24 10:00 89 16 99/47 98 02/10/24 09:45 88 13 100/45 98 02/10/24 09:30 91 16 101/47 97 02/10/24 09:15 93 23 100/82 96 50 02/10/24 09:00 95 14 87/47 98 02/10/24 08:45 90 17 79/49 97 02/10/24 08:30 89 18 89/44 97 02/10/24 08:15 89 17 113/46 97 02/10/24 08:00 98.7 F 97 26 H 113/46 97 50 02/10/24 07:45 100 24 87/49 93 L 02/10/24 07:30 91 13 90/47 96 02/10/24 07:15 93 19 90/47 97 02/10/24 07:00 94 15 101/49 97 02/10/24 06:45 98 15 97/53 95 02/10/24 06:30 98 17 113/56 94 L 02/10/24 05:48 50 02/10/24 05:45 93 17 95/47 96 02/10/24 05:30 96 23 105/58 95 02/10/24 05:15 97 25 H 89/53 97 02/10/24 05:00 95 17 107/55 95 02/10/24 04:45 97 21 87/44 97 02/10/24 04:30 93 18 85/50 95 02/10/24 04:15 93 18 79/46 94 L 02/10/24 04:00 97.8 F 97 18 77/45 95 50 02/10/24 03:45 96 20 81/42 95 02/10/24 03:30 98 17 95/53 94 L 02/10/24 03:15 102 H 26 H 86/45 94 L 02/10/24 03:00 99 20 102/48 92 L 02/10/24 02:45 102 H 29 H 103/55 92 L 50 02/10/24 02:44 50 02/10/24 02:30 101 H 27 H 111/59 93 L 02/10/24 02:15 101 H 25 H 105/48 94 L 02/10/24 02:00 101 H 22 101/45 94 L 02/10/24 01:45 101 H 31 H 78/40 93 L 02/10/24 01:30 98 24 71/37 94 L 02/10/24 01:15 101 H 23 75/41 94 L 02/10/24 01:00 103 H 23 78/48 94 L 02/10/24 00:55 106 H 27 H 92/41 94 L 02/10/24 00:25 102 H 26 H 80/41 94 L 02/10/24 00:20 101 H 24 78/38 94 L 02/10/24 00:15 102 H 26 H 79/40 94 L 02/10/24 00:10 102 H 28 H 77/39 94 L 02/10/24 00:05 101 H 30 H 80/41 95 02/10/24 00:00 104 H 28 H 79/37 95 02/09/24 23:55 102 H 29 H 78/41 94 L 02/09/24 23:50 101 H 28 H 79/38 94 L 02/09/24 23:45 102 H 26 H 78/37 94 L 02/09/24 23:40 102 H 30 H 77/41 94 L 02/09/24 23:38 98.6 F 103 H 26 H 79/51 96 02/09/24 23:35 101 H 28 H 77/41 94 L 02/09/24 23:30 110 H 37 H 79/57 94 L 02/09/24 23:27 98.6 F 02/09/24 23:25 109 H 37 H 85/37 95 02/09/24 23:22 105 H 22 87/43 96 02/09/24 23:20 108 H 36 H 72/40 94 L 02/09/24 23:15 102 H 25 H 83/44 94 L 02/09/24 23:14 98.6 F 108 H 35 H 83/44 94 L 02/09/24 23:10 105 H 34 H 73/41 97 02/09/24 23:00 105 H 30 H 86/46 96 02/09/24 22:55 107 H 41 H 96/41 95 02/09/24 22:50 107 H 35 H 96/43 90 L 02/09/24 22:45 105 H 29 H 97/43 91 L 02/09/24 22:40 107 H 37 H 87/37 93 L 02/09/24 22:35 101 H 20 95/44 93 L 02/09/24 22:30 102 H 19 93/48 91 L 02/09/24 22:25 103 H 21 93/48 94 L 02/09/24 22:20 102 H 20 86/42 95 02/09/24 22:10 102 H 22 87/39 94 L 02/09/24 22:05 103 H 19 84/48 95 02/09/24 22:00 103 H 20 83/43 91 L 02/09/24 21:45 101 H 19 81/44 95 02/09/24 20:30 99 17 78/49 95 02/09/24 19:25 97 18 93/61 95 02/09/24 19:19 95 50 02/09/24 17:16 89 20 93/56 96 02/09/24 16:04 89 20 91/45 97 02/09/24 15:59 87/62 02/09/24 15:26 82 22 92/55 96 02/09/24 14:36 83 23 86/50 97 02/09/24 13:29 26 H 02/09/24 13:21 96.4 F L 95 22 95/44 96 Intake and Output 02/09/24 02/10/24 02/10/24 22:59 06:59 14:59 Intake Total 13.911 1492.720 520 Output Total 30 Balance 13.911 1462.720 520 Intake: IV 910 520 Sodium Chloride 0.9% 1, 910 520 000 ml @ 130 mls/hr IV . [facility] Rx#:[id number] Intake, IV Titration 13.911 582.720 Amount Norepinephrine 4 mg In 13.911 332.720 Sodium Chloride 0.9% 250 ml @ 0.03 MCG/KG/MIN 7. 777 mls/hr IV .[facility] Rx#:[id number] Vancomycin 1,250 mg In 250 Sodium Chloride 0.9% 250 ml @ 125 mls/hr IVPB ONCE ONE Rx#:[id number] Output: Urine 30 Other: Voiding Method Indwelling Catheter Indwelling Catheter Weight 73 kg 73 kg PHYSICAL EXAMINATION: Patient is awake alert. Lethargic. Patient is on BiPAP. HEENT: Normocephalic. Neck is supple. Pupils reactive. Nostrils clear. Oral cavity is moist. Neck reveals no JVD, carotid bruits, or thyromegaly. CHEST EXAMINATION: Trachea is central. Symmetrical expansion. Right-sided diminished sounds. No wheezing. Nonlabored breathing. CARDIAC: Normal S1, S2 with no gallops. No murmurs ABDOMEN: Soft. Bowel sounds normal. No organomegaly. No abdominal bruits. Extremities: Bilateral lower extremity trace edema with redness and mild warmth. No clubbing or cyanosis Neurologically awake, alert, oriented x 1-2. Able to move all extremities. No gross focal neurological deficit. Skin: No rash or skin lesions. Psychiatric: Coperative. Could not be assessed completely. Musculoskeletal: No joint swelling or deformity. Results CBC & Chem 7: 02/10/24 05:32 02/10/24 05:32 Labs: Abnormal Lab Results - Last 24 Hours (Table) 02/09/24 02/09/24 02/09/24 Range/Units 13:52 13:52 13:52 WBC 3.2 L (3.8-10.6) k/uL RDW 18.5 H (11.5-15.5) % Plt Count 14 L* (150-450) k/uL Lymphocytes # (Manual) 0.32 L (1.0-4.8) k/uL Metamyelocytes # (Man) (0) k/uL ABG pH (7.35-7.45) ABG HCO3 (21-25) mmol/L ABG O2 Saturation (94-97) % Sodium (137-145) mmol/L Potassium 3.4 L (3.5-5.1) mmol/L Chloride (98-107) mmol/L Carbon Dioxide 20 L (22-30) mmol/L BUN 66 H (7-17) mg/dL Creatinine 2.62 H (0.52-1.04) mg/dL Glucose 67 L (74-99) mg/dL Plasma Lactic Acid [place] 4.3 H* (0.7-2.0) mmol/L Calcium (8.4-10.2) mg/dL Total Bilirubin 3.0 H (0.2-1.3) mg/dL AST 87 H (14-36) U/L ALT 72 H (4-34) U/L Alkaline Phosphatase 250 H (38-126) U/L Ammonia 46 H (<30) umol/L Total Protein 4.4 L (6.3-8.2) g/dL Albumin 2.3 L (3.5-5.0) g/dL Amylase 134 H (30-110) U/L Lipase 869 H (23-300) U/L Urine Appearance (Clear) Urine Bilirubin (Negative) Urine WBC Clumps (None) /hpf Urine Bacteria (None) /hpf Hyaline Casts (0-2) /lpf Urine Mucus (None) /hpf 02/09/24 02/09/24 02/09/24 Range/Units 17:51 20:59 23:43 WBC (3.8-10.6) k/uL RDW (11.5-15.5) % Plt Count (150-450) k/uL Lymphocytes # (Manual) (1.0-4.8) k/uL Metamyelocytes # (Man) (0) k/uL ABG pH (7.35-7.45) ABG HCO3 (21-25) mmol/L ABG O2 Saturation (94-97) % Sodium (137-145) mmol/L Potassium (3.5-5.1) mmol/L Chloride (98-107) mmol/L Carbon Dioxide (22-30) mmol/L BUN (7-17) mg/dL Creatinine (0.52-1.04) mg/dL Glucose (74-99) mg/dL Plasma Lactic Acid [place] 3.8 H* 3.7 H* 4.5 H* (0.7-2.0) mmol/L Calcium (8.4-10.2) mg/dL Total Bilirubin (0.2-1.3) mg/dL AST (14-36) U/L ALT (4-34) U/L Alkaline Phosphatase (38-126) U/L Ammonia (<30) umol/L Total Protein (6.3-8.2) g/dL Albumin (3.5-5.0) g/dL Amylase (30-110) U/L Lipase (23-300) U/L Urine Appearance (Clear) Urine Bilirubin (Negative) Urine WBC Clumps (None) /hpf Urine Bacteria (None) /hpf Hyaline Casts (0-2) /lpf Urine Mucus (None) /hpf 02/10/24 02/10/24 02/10/24 Range/Units 00:38 05:32 05:32 WBC (3.8-10.6) k/uL RDW 18.7 H (11.5-15.5) % Plt Count 19 L* (150-450) k/uL Lymphocytes # (Manual) 0.84 L (1.0-4.8) k/uL Metamyelocytes # (Man) 0.23 H (0) k/uL ABG pH (7.35-7.45) ABG HCO3 (21-25) mmol/L ABG O2 Saturation (94-97) % Sodium (137-145) mmol/L Potassium (3.5-5.1) mmol/L Chloride (98-107) mmol/L Carbon Dioxide (22-30) mmol/L BUN (7-17) mg/dL Creatinine 2.93 H (0.52-1.04) mg/dL Glucose (74-99) mg/dL Plasma Lactic Acid [place] (0.7-2.0) mmol/L Calcium (8.4-10.2) mg/dL Total Bilirubin (0.2-1.3) mg/dL AST (14-36) U/L ALT (4-34) U/L Alkaline Phosphatase (38-126) U/L Ammonia (<30) umol/L Total Protein (6.3-8.2) g/dL Albumin (3.5-5.0) g/dL Amylase (30-110) U/L Lipase (23-300) U/L Urine Appearance Cloudy H (Clear) Urine Bilirubin 1+ H (Negative) Urine WBC Clumps Rare H (None) /hpf Urine Bacteria Occasional H (None) /hpf Hyaline Casts 19 H (0-2) /lpf Urine Mucus Rare H (None) /hpf 02/10/24 02/10/24 Range/Units 05:32 09:23 WBC (3.8-10.6) k/uL RDW (11.5-15.5) % Plt Count (150-450) k/uL Lymphocytes # (Manual) (1.0-4.8) k/uL Metamyelocytes # (Man) (0) k/uL ABG pH 7.25 L (7.35-7.45) ABG HCO3 20 L (21-25) mmol/L ABG O2 Saturation 97.5 H (94-97) % Sodium 136 L (137-145) mmol/L Potassium (3.5-5.1) mmol/L Chloride 111 H (98-107) mmol/L Carbon Dioxide 16 L (22-30) mmol/L BUN 70 H (7-17) mg/dL Creatinine 3.07 H (0.52-1.04) mg/dL Glucose 73 L (74-99) mg/dL Plasma Lactic Acid [place] (0.7-2.0) mmol/L Calcium 8.1 L (8.4-10.2) mg/dL Total Bilirubin 3.4 H (0.2-1.3) mg/dL AST 76 H (14-36) U/L ALT 58 H (4-34) U/L Alkaline Phosphatase 165 H (38-126) U/L Ammonia (<30) umol/L Total Protein 3.8 L (6.3-8.2) g/dL Albumin 1.8 L (3.5-5.0) g/dL Amylase (30-110) U/L Lipase (23-300) U/L Urine Appearance (Clear) Urine Bilirubin (Negative) Urine WBC Clumps (None) /hpf Urine Bacteria (None) /hpf Hyaline Casts (0-2) /lpf Urine Mucus (None) /hpf Microbiology - Last 24 Hours (Table) 02/09/24 13:52 Blood Culture Gram Stain - Preliminary Blood Blood Culture - Preliminary Molecular ID Thrombosis Risk Factor Assmnt - DVT/VTE Prophylaxis DVT/VTE Prophylaxis: Mechanical Prophylaxis ordered Assessment and Plan Assessment: Hypotension with possible sepsis/septic shock requiring pressor support with Levophed and vasopressin. Chest x-ray showed interval marked progression of consolidation and pleural fluid on the right with a large right-sided pleural effusion and compressive n atelectasis.. Bilateral lower extremity cellulitis Klebsiella oxytoca bacteremia History of previous urinary tract infection with Klebsiella pneumonia Recurrent right-sided pleural effusion with history of multiple thoracentesis most recent on 02/06/2024 with 2.5 L fluid removal. Acute hypoxic respiratory failure on oxygen at 5 L via nasal cannula Liver cirrhosis with abdominal ascites and history of TIPS procedure. Chronic thrombocytopenia secondary to liver disease/cirrhosis Lactic acidosis on admission Hyperammonemia Metabolic/hepatic encephalopathy secondary to sepsis and liver cirrhosis Acute on chronic renal disease stage IV possibly ATN. Baseline creatinine 1.87 creatinine admission was 2.6 Non-anion gap metabolic acidosis Common variable immunodeficiency. Patient receives IV IgG Related lipase level 869 and amylase 134. Patient denied any complaints of abdominal pain on admission. DVT prophylaxis SCDs due to thrombocytopenia Plan: Patient is currently in MICU. Patient will be continued on antibiotics of ceftriaxone and vancomycin to cover bacteremia and lower extremity cellulitis as well. Patient was also started on bicarb drip. Follow-up renal function. Patient is currently on pressor support with norepinephrine and vasopressin. Continued on IV hydration. Pulmonary is planning for right thoracentesis after platelet transfusion. Follow-up repeat blood cultures. Continue with lactulose. Patient is critically ill at this time. Follow-up closely. Time with Patient: Greater than 30
[2024-02-11 00:30] LABS: Glucose,Whole Blood 141 mg/dL (70-110)
[2024-02-11 04:42] LABS: Appearance,BF Cloudy (Clear)
[2024-02-11 06:16] LABS: Glucose,Whole Blood 197 mg/dL (70-110)
[2024-02-11 06:44] LABS: Anisocytosis Slight; HCT 33.7 % (34.0-46.0); HGB 10.8 gm/dL (11.4-16.0); Hypochromasia Moderate; MCH 30.3 pg (25.0-35.0); MCHC 32.1 g/dL (31.0-37.0); MCV 94.4 fL (80.0-100.0); Macrocytosis Slight; Mean Platelet Volume 9.7; Poikilocytosis Moderate; RBC 3.57 m/uL (3.80-5.40); RDW 19.7 % (11.5-15.5)
[2024-02-11 07:07] LABS: African American GFR (CKD) 17 (>60 ml/min/1.73 sqM); Anion Gap 10 mmol/L; Blood Urea Nitrogen 77 mg/dL (7-17); Calcium 7.1 mg/dL (8.4-10.2); Carbon Dioxide 19 mmol/L (22-30); Chloride 108 mmol/L (98-107); Glucose 166 mg/dL (74-99); Non-African American GFR(CKD) 15 (>60 ml/min/1.73 sqM); Potassium 3.7 mmol/L (3.5-5.1); Sodium 137 mmol/L (137-145)
[2024-02-11 07:11] LABS: Platelet Count 21 k/uL (150-450)
--- NOTE | 2024-02-11 07:15 | P.CONS ---
History of Present Illness - Reason for Consult Consult date: 02/10/24 Possible cellulitis Requesting physician: Salvador Landin - Chief Complaint Weakness x few days - History of Present Illness Patient is a 73-year-old female with a past medical history significant for reflux hypertension cirrhosis of the liver in this patient who is status post TIPS procedure did have a history of recurrent right sided effusion requiring recurrent right thoracocentesis last procedure done on January 27, 2024 patient has been brought into the hospital concerning for generalized weakness that has been getting worse over the last few days patient also having increasing diarrhea with watery stool but no blood in mucus in the stool and also noticed having increasing swelling to the lower extremity with the symptoms the patient has been evaluated on presentation to the hospital patient was afebrile patient was tachycardic initially but this subsequently resolved was hypotensive requiring pressor and admission to the ICU also hypoxic requiring BiPAP patient did have a white count of 3.2 repeat is 7.6 platelet count on the low side BUN and creatinine has been elevated lactic acid was 4.5 liver enzymes are elevated urine has been negative patient did have chest x-ray marked progression of the consolidation and effusion on the right with a large right-sided effusion abdominal pelvis CT cirrhosis and splenomegaly moderate large amount of ascites gallstone patient did have a blood culture drawn which came back positive with Klebsiella oxytoca with no resistance gene patient biotic has been adjusted to Rocephin 2 g daily infectious disease was consulted for further management of antibiotic with concern for possible cellulitis to the lower extremity patient did have a chronic swelling and some redness to the lower legs patient to immunoglobulin infusion into her thighs and noticed to have increasing swelling and redness to the right thigh area the patient complaining of some pain to the thigh but and unable to quantify it any further Review of Systems Positive point and negatives has been mentioned in the HPI, complete review of systems was performed and all other systems are negative Past Medical History Past Medical History: GERD/Reflux, Hypertension, Liver Disease, Renal Disease Additional Past Medical History / Comment(s): immunodeficiency, SOB pleural effusions requiring multiple Rt thoracentesis, low platelet count History of Any Multi-Drug Resistant Organisms: MRSA Year Discovered:: 08/23/2009 MDRO Source:: open wound bilateral arms healed Past Surgical History: Hysterectomy Additional Past Surgical History / Comment(s): common variable immune deficicency, multiple paracentesis last in may 2023, colonoscopy with polyp removal, TIPS Jan 2023, thoracentesis Past Anesthesia/Blood Transfusion Reactions: No Reported Reaction Additional Past Anesthesia/Blood Transfusion Reaction / Comm: Slow to wake up. Past Psychological History: Anxiety, Depression Smoking Status: Never smoker - Past Family History Father Additional Family Medical History / Comment(s): Patient's father at age 92 from CVA. He also had a degenerative muscle disorder. Mother Additional Family Medical History / Comment(s): Mother is alive at age 90 with no major medical problems. Brother(s) Additional Family Medical History / Comment(s): Patient is a total of 5 siblings with no major medical problems. Patient has one daughter with no major medical problems. Medications and Allergies Home Medications Medication Instructions Recorded Confirmed Type traMADol HCL 50 mg PO BID PRN 08/29/19 02/09/24 History Immun Glob G(IgG)/Pro/Iga 0-50 1 dose IV FR 08/12/23 02/09/24 History [Hizentra 10 Gram/50 ml Syringe] ALPRAZolam [Xanax] 1 mg PO BID PRN 12/28/23 02/09/24 History Aspirin EC [Ecotrin Low Dose] 81 mg PO DAILY 12/28/23 02/09/24 History Bumetanide [BUMEX] 1 mg PO DAILY 12/28/23 02/09/24 History Spironolactone [Aldactone] 25 mg PO DAILY 12/28/23 02/09/24 History Allergies Allergy/AdvReac Type Severity Reaction Status Date / Time sulfamethoxazole Allergy Unknown, Verified 02/09/24 15:01 [From Bactrim] family allergy trimethoprim [From Bactrim] Allergy Unknown, Verified 02/09/24 15:01 family allergy furosemide [From Lasix] AdvReac Rash/Hives Verified 02/09/24 15:01 Physical Exam Vitals: Vital Signs Temp Pulse Resp BP Pulse Ox FiO2 02/10/24 10:15 90 23 100/49 97 02/10/24 10:00 89 16 99/47 98 02/10/24 09:45 88 13 100/45 98 02/10/24 09:30 91 16 101/47 97 02/10/24 09:15 93 23 100/82 96 50 02/10/24 09:00 95 14 87/47 98 02/10/24 08:45 90 17 79/49 97 02/10/24 08:30 89 18 89/44 97 02/10/24 08:15 89 17 113/46 97 02/10/24 08:00 98.7 F 97 26 H 113/46 97 50 02/10/24 07:45 100 24 87/49 93 L 02/10/24 07:30 91 13 90/47 96 02/10/24 07:15 93 19 90/47 97 02/10/24 07:00 94 15 101/49 97 02/10/24 06:45 98 15 97/53 95 02/10/24 06:30 98 17 113/56 94 L 02/10/24 05:48 50 02/10/24 05:45 93 17 95/47 96 02/10/24 05:30 96 23 105/58 95 02/10/24 05:15 97 25 H 89/53 97 02/10/24 05:00 95 17 107/55 95 02/10/24 04:45 97 21 87/44 97 02/10/24 04:30 93 18 85/50 95 02/10/24 04:15 93 18 79/46 94 L 02/10/24 04:00 97.8 F 97 18 77/45 95 50 02/10/24 03:45 96 20 81/42 95 02/10/24 03:30 98 17 95/53 94 L 02/10/24 03:15 102 H 26 H 86/45 94 L 02/10/24 03:00 99 20 102/48 92 L 02/10/24 02:45 102 H 29 H 103/55 92 L 50 02/10/24 02:44 50 02/10/24 02:30 101 H 27 H 111/59 93 L 02/10/24 02:15 101 H 25 H 105/48 94 L 02/10/24 02:00 101 H 22 101/45 94 L 02/10/24 01:45 101 H 31 H 78/40 93 L 02/10/24 01:30 98 24 71/37 94 L 02/10/24 01:15 101 H 23 75/41 94 L 02/10/24 01:00 103 H 23 78/48 94 L 02/10/24 00:55 106 H 27 H 92/41 94 L 02/10/24 00:25 102 H 26 H 80/41 94 L 02/10/24 00:20 101 H 24 78/38 94 L 02/10/24 00:15 102 H 26 H 79/40 94 L 02/10/24 00:10 102 H 28 H 77/39 94 L 02/10/24 00:05 101 H 30 H 80/41 95 02/10/24 00:00 104 H 28 H 79/37 95 02/09/24 23:55 102 H 29 H 78/41 94 L 02/09/24 23:50 101 H 28 H 79/38 94 L 02/09/24 23:45 102 H 26 H 78/37 94 L 02/09/24 23:40 102 H 30 H 77/41 94 L 02/09/24 23:38 98.6 F 103 H 26 H 79/51 96 02/09/24 23:35 101 H 28 H 77/41 94 L 02/09/24 23:30 110 H 37 H 79/57 94 L 02/09/24 23:27 98.6 F 02/09/24 23:25 109 H 37 H 85/37 95 02/09/24 23:22 105 H 22 87/43 96 02/09/24 23:20 108 H 36 H 72/40 94 L 02/09/24 23:15 102 H 25 H 83/44 94 L 02/09/24 23:14 98.6 F 108 H 35 H 83/44 94 L 02/09/24 23:10 105 H 34 H 73/41 97 02/09/24 23:00 105 H 30 H 86/46 96 02/09/24 22:55 107 H 41 H 96/41 95 02/09/24 22:50 107 H 35 H 96/43 90 L 02/09/24 22:45 105 H 29 H 97/43 91 L 02/09/24 22:40 107 H 37 H 87/37 93 L 02/09/24 22:35 101 H 20 95/44 93 L 02/09/24 22:30 102 H 19 93/48 91 L 02/09/24 22:25 103 H 21 93/48 94 L 02/09/24 22:20 102 H 20 86/42 95 02/09/24 22:10 102 H 22 87/39 94 L 02/09/24 22:05 103 H 19 84/48 95 02/09/24 22:00 103 H 20 83/43 91 L 02/09/24 21:45 101 H 19 81/44 95 02/09/24 20:30 99 17 78/49 95 02/09/24 19:25 97 18 93/61 95 02/09/24 19:19 95 50 02/09/24 17:16 89 20 93/56 96 02/09/24 16:04 89 20 91/45 97 02/09/24 15:59 87/62 02/09/24 15:26 82 22 92/55 96 02/09/24 14:36 83 23 86/50 97 02/09/24 13:29 26 H 02/09/24 13:21 96.4 F L 95 22 95/44 96 Intake and Output 02/09/24 02/10/24 02/10/24 22:59 06:59 14:59 Intake Total 13.911 1492.720 520 Output Total 30 Balance 13.911 1462.720 520 Intake: IV 910 520 Sodium Chloride 0.9% 1, 910 520 000 ml @ 130 mls/hr IV . [id number] [facility] Rx#:[id number] Intake, IV Titration 13.911 582.720 Amount Norepinephrine 4 mg In 13.911 332.720 Sodium Chloride 0.9% 250 ml @ 0.03 MCG/KG/MIN 7. 777 mls/hr IV .Q24H [facility] Rx#:[id number] Vancomycin 1,250 mg In 250 Sodium Chloride 0.9% 250 ml @ 125 mls/hr IVPB ONCE ONE Rx#:[id number] Output: Urine 30 Other: Voiding Method Indwelling Catheter Indwelling Catheter Weight 73 kg 73 kg GENERAL DESCRIPTION: Elderly female lying in bed, no distress. No tachypnea or accessory muscle of respiration use. HEENT: Shows Pallor , no scleral icterus. Oral mucous membrane is dry. Patient with the BiPAP on NECK: Trachea central, no thyromegaly. LUNGS: Unlabored breathing. Decreased breath sound at the base HEART: S1, S2, regular rate and rhythm. No loud murmur ABDOMEN: Soft, no tenderness , EXTREMITIES: Diffuse swelling to bilateral lower extremity with more erythema and warmth to the right upper thigh SKIN: No rash, no masses palpable. NEUROLOGICAL: The patient is awake, alert, mood and affect normal. Results CBC & Chem 7: 02/10/24 05:32 02/11/24 06:32 Labs: Abnormal Lab Results - Last 24 Hours (Table) 02/09/24 02/09/24 02/09/24 Range/Units 13:52 13:52 13:52 WBC 3.2 L (3.8-10.6) k/uL RDW 18.5 H (11.5-15.5) % Plt Count 14 L* (150-450) k/uL Lymphocytes # (Manual) 0.32 L (1.0-4.8) k/uL Metamyelocytes # (Man) (0) k/uL ABG pH (7.35-7.45) ABG HCO3 (21-25) mmol/L ABG O2 Saturation (94-97) % Sodium (137-145) mmol/L Potassium 3.4 L (3.5-5.1) mmol/L Chloride (98-107) mmol/L Carbon Dioxide 20 L (22-30) mmol/L BUN 66 H (7-17) mg/dL Creatinine 2.62 H (0.52-1.04) mg/dL Glucose 67 L (74-99) mg/dL Plasma Lactic Acid [place] 4.3 H* (0.7-2.0) mmol/L Calcium (8.4-10.2) mg/dL Total Bilirubin 3.0 H (0.2-1.3) mg/dL AST 87 H (14-36) U/L ALT 72 H (4-34) U/L Alkaline Phosphatase 250 H (38-126) U/L Ammonia 46 H (<30) umol/L Total Protein 4.4 L (6.3-8.2) g/dL Albumin 2.3 L (3.5-5.0) g/dL Amylase 134 H (30-110) U/L Lipase 869 H (23-300) U/L Urine Appearance (Clear) Urine Bilirubin (Negative) Urine WBC Clumps (None) /hpf Urine Bacteria (None) /hpf Hyaline Casts (0-2) /lpf Urine Mucus (None) /hpf 02/09/24 02/09/24 02/09/24 Range/Units 17:51 20:59 23:43 WBC (3.8-10.6) k/uL RDW (11.5-15.5) % Plt Count (150-450) k/uL Lymphocytes # (Manual) (1.0-4.8) k/uL Metamyelocytes # (Man) (0) k/uL ABG pH (7.35-7.45) ABG HCO3 (21-25) mmol/L ABG O2 Saturation (94-97) % Sodium (137-145) mmol/L Potassium (3.5-5.1) mmol/L Chloride (98-107) mmol/L Carbon Dioxide (22-30) mmol/L BUN (7-17) mg/dL Creatinine (0.52-1.04) mg/dL Glucose (74-99) mg/dL Plasma Lactic Acid [place] 3.8 H* 3.7 H* 4.5 H* (0.7-2.0) mmol/L Calcium (8.4-10.2) mg/dL Total Bilirubin (0.2-1.3) mg/dL AST (14-36) U/L ALT (4-34) U/L Alkaline Phosphatase (38-126) U/L Ammonia (<30) umol/L Total Protein (6.3-8.2) g/dL Albumin (3.5-5.0) g/dL Amylase (30-110) U/L Lipase (23-300) U/L Urine Appearance (Clear) Urine Bilirubin (Negative) Urine WBC Clumps (None) /hpf Urine Bacteria (None) /hpf Hyaline Casts (0-2) /lpf Urine Mucus (None) /hpf 02/10/24 02/10/24 02/10/24 Range/Units 00:38 05:32 05:32 WBC (3.8-10.6) k/uL RDW 18.7 H (11.5-15.5) % Plt Count 19 L* (150-450) k/uL Lymphocytes # (Manual) 0.84 L (1.0-4.8) k/uL Metamyelocytes # (Man) 0.23 H (0) k/uL ABG pH (7.35-7.45) ABG HCO3 (21-25) mmol/L ABG O2 Saturation (94-97) % Sodium (137-145) mmol/L Potassium (3.5-5.1) mmol/L Chloride (98-107) mmol/L Carbon Dioxide (22-30) mmol/L BUN (7-17) mg/dL Creatinine 2.93 H (0.52-1.04) mg/dL Glucose (74-99) mg/dL Plasma Lactic Acid [place] (0.7-2.0) mmol/L Calcium (8.4-10.2) mg/dL Total Bilirubin (0.2-1.3) mg/dL AST (14-36) U/L ALT (4-34) U/L Alkaline Phosphatase (38-126) U/L Ammonia (<30) umol/L Total Protein (6.3-8.2) g/dL Albumin (3.5-5.0) g/dL Amylase (30-110) U/L Lipase (23-300) U/L Urine Appearance Cloudy H (Clear) Urine Bilirubin 1+ H (Negative) Urine WBC Clumps Rare H (None) /hpf Urine Bacteria Occasional H (None) /hpf Hyaline Casts 19 H (0-2) /lpf Urine Mucus Rare H (None) /hpf 02/10/24 02/10/24 Range/Units 05:32 09:23 WBC (3.8-10.6) k/uL RDW (11.5-15.5) % Plt Count (150-450) k/uL Lymphocytes # (Manual) (1.0-4.8) k/uL Metamyelocytes # (Man) (0) k/uL ABG pH 7.25 L (7.35-7.45) ABG HCO3 20 L (21-25) mmol/L ABG O2 Saturation 97.5 H (94-97) % Sodium 136 L (137-145) mmol/L Potassium (3.5-5.1) mmol/L Chloride 111 H (98-107) mmol/L Carbon Dioxide 16 L (22-30) mmol/L BUN 70 H (7-17) mg/dL Creatinine 3.07 H (0.52-1.04) mg/dL Glucose 73 L (74-99) mg/dL Plasma Lactic Acid [place] (0.7-2.0) mmol/L Calcium 8.1 L (8.4-10.2) mg/dL Total Bilirubin 3.4 H (0.2-1.3) mg/dL AST 76 H (14-36) U/L ALT 58 H (4-34) U/L Alkaline Phosphatase 165 H (38-126) U/L Ammonia (<30) umol/L Total Protein 3.8 L (6.3-8.2) g/dL Albumin 1.8 L (3.5-5.0) g/dL Amylase (30-110) U/L Lipase (23-300) U/L Urine Appearance (Clear) Urine Bilirubin (Negative) Urine WBC Clumps (None) /hpf Urine Bacteria (None) /hpf Hyaline Casts (0-2) /lpf Urine Mucus (None) /hpf Microbiology - Last 24 Hours (Table) 02/09/24 13:52 Blood Culture Gram Stain - Preliminary Blood Blood Culture - Preliminary Molecular ID Assessment and Plan (1) Sepsis Current Visit: Yes Status: Acute Code(s): A41.9 - SEPSIS, UNSPECIFIED ORGANISM SNOMED Code(s): 04857314 (2) Pneumonia Current Visit: Yes Status: Acute Code(s): J18.9 - PNEUMONIA, UNSPECIFIED ORGANISM SNOMED Code(s): 893435150 Plan: 1patient with sepsis in this patient who did have hypotension tachycardia leukopenia and now with evidence of Klebsiella bacteremia source could be right- sided pneumonia/empyema as the patient did have a history of recurrent right- sided effusion requiring recurrent thoracocentesis patient did have a negative UA CT abdominal pelvis did not show any evidence of colitis or cholecystitis there was evidence of gallstone though 2-blood cultures will be repeated document clearance of bacteremia 3-patient is appropriately on Rocephin 2 g daily to continue 4pulmonary is planning for right-sided thoracocentesis fluid will be sent for culture Family at the bedside multiple questions answered We will follow on clinical condition and cultures to further adjust medication if needed Thank you for this consultation we will follow the patient along with you Dictation was produced using [employer] software. please excuse any grammatical, word or spelling errors. Time with Patient: Greater than 30
--- NOTE | 2024-02-11 07:53 | XR ---
EXAMINATION TYPE: XR chest 1V portable DATE OF EXAM: 02/11/2024 4:57 AM COMPARISON: 02/10/2024 CLINICAL INDICATION: Female, 73 years old with history of Post Thoracentesis, FINDINGS: Indwelling tubes and catheters are unchanged. increasing right-sided pleural effusion with pulmonary venous congestion seen bilaterally and scatter ed infiltrates. Stable appearance of the cardio-mediastinal structures at this time. IMPRESSION: 1. increasing right-sided pleural effusion with pulmonary venous congestion seen bilaterally and sca ttered infiltrates. Clinical correlation and follow up until resolution is recommended. [facility], , 02/11/2024 7:51 AM
[2024-02-11 08:25] LABS: Band Neutrophils % 12 %; Eosinophils # (M) 0.11 k/uL (0-0.7); Metamyelocytes % 6 %; Myelocytes % 2 %; Neutrophils % (M) 72 %; Nucleated Red Blood Cells 2 /100 WBC (0-0); Total Cells Counted 200
[2024-02-11 08:26] LABS: Lymphocytes # (M) 0.67 k/uL (1.0-4.8); Metamyelocytes # (M) 0.67 k/uL (0); Monocytes # (M) 0.22 k/uL (0-1.0); Myelocytes # (M) 0.22 k/uL (0); WBC 11.1 k/uL (3.8-10.6)
[2024-02-11 08:29] LABS: Anisocytosis (M) Present; Poikilocytosis (M) Present
[2024-02-11] MEDS: LORazepam 2 MG/ML INJ IV ONE (09:23)
[2024-02-11 11:58] LABS: Glucose,Whole Blood 197 mg/dL (70-110)
[2024-02-11] MEDS ORDERED: ZINC OXIDE PASTE (Z-GUARD) 1 APPLIC TOPICAL PRN (12:52)
[2024-02-11] MEDS: ALBUMIN HUMAN 25% 50 ML in EMPTY BAG 1 BAG IVPB SCH (13:18)
--- NOTE | 2024-02-11 13:44 | XR ---
EXAMINATION TYPE: XR chest 1V portable DATE OF EXAM: 02/11/2024 1:36 PM COMPARISON: 02/03/2024 CLINICAL INDICATION: Female, 73 years old with history of POST THORACENTESIS; PHH pleural effusion. TECHNIQUE: XR chest 1V portable Frontal view of the chest. FINDINGS: Lungs/Pleura: Decrease in right pleural effusion. There is no evidence of pleural effusion, focal con solidation, or pneumothorax. Pulmonary vascularity: Pulmonary vascular congestion. Heart/mediastinum: Cardiomediastinal silhouette is unremarkable. Musculoskeletal: No acute osseous pathology. Right central venous catheter with tip in unsatisfactory position. IMPRESSION: 1. Decrease in right pleural effusion or evidence for pneumothorax. 2. Pulmonary vascular congestion. [facility], , 02/11/2024 1:42 PM
--- NOTE | 2024-02-11 14:02 | P.PN ---
Subjective Progress Note Date: 02/11/24 Patient is a 73-year-old female with past medical history significant for common variable immunodeficiency, liver cirrhosis, abdominal ascites, TIPS procedure, and recurrent right-sided pleural effusion. Pulmonary consult was originally placed for recurrent right-sided pleural effusion. Patient has had multiple previous right-sided thoracentesis in the past. Last thoracentesis was on 02/06/24, a total of 2.5 L of fluid was removed at that time. In the past fluid cytology has been negative for malignant cells. As reported above, patient does have liver cirrhosis and history of ascites with frequent paracentesis status post TIPS procedure. She does follow at the [facility]. Patient presents back to the ED yesterday afternoon complaining chiefly of progressively worsening shortness of breath. Also, reports from the ER provider, of large volume diarrhea. She does take lactulose outpatient. Chest x-ray showing a recurrent large right-sided pleural effusion. While in emergency department as an overflow, noted to be hypotensive, she was bolused with a total of 2 L normal saline, and started on normal saline at 130 mL/h. Remained hypotensive, and started on norepinephrine by the ER provider. She was then transferred to the intensive care unit. CBC: WBC count 3.2, hemoglobin 13.1, hematocrit 39.2, platelets low at 14,000. CMP: Sodium 137, potassium 3.4, chloride 106, serum bicarb 20, BUN 66, creatinine higher than baseline at 2.62, glucose 67. Lactic elevated at 4.3 and down to 3.7. LFTs are mildly elevated. Ammonia 46. She does take lactulose on an outpatient basis. Troponin 0.016. Amylase 134, lipase 869. Albumin 2.3. Patient was started on empiric antibi otics in the form of Rocephin and vancomycin in the ED. Patient is currently being evaluated in room 263. Currently, patient is lethargic she is unable to provide information for HPI. Unfortunately, no family present. Current vital signs include a heart rate of 100 bpm, blood pressure is hypotensive at 71/37 mmHg. Norepinephrine is being titrated up, and she may need second vasopressor. Normal saline also infusing at 130 mL/h. She is afebrile. Breathing is tachypneic. She is on 5 L/min nasal cannula. SpO2 is reading 94%. Markedly diminshed lung sounds on the right. Right lower extremity is erythemic and painful. Prognosis guarded. On 02/11/2024, the patient is being seen for a follow-up. This morning, the patient is on 5 L of oxygen by nasal cannula. Overnight, the patient was utilizing BiPAP at a pressure of 12 over 5 cm of water with an FiO2 of 40%. Noted repeat chest x-ray was done and the patient has a very rapid reaccumulation of the right-sided pleural effusion which was considered to be very large in size. Based on that, I performed another thoracentesis on this patient at the bedside and a total of 3.2 L of pleural fluid was aspirated from the right lung. No complications. Improved aeration of the right lung following the thoracentesis. As such, the patient has a total of 6 L of pleural fluid drained over the past 24 hours. Will supplement the patient with albumin 12.5 g x 2 doses. Urine output remains quite diminished. Renal function is impaired and the patient's creatinine today is at 2.99 with a BUN of 77. Electrolytes show a serum bicarbonate of 19 and the patient remains on a bicarb infusion which is running at 100 cc an hour. The patient remains on norepinephrine at 0.24 mcg/kg/min and vasopressin physiologic dose. The patient remains on IV Rocephin 2 g every 24 hours. The blood culture was positive for Klebsiella oxytoca. At the same time, continues to have extensive edema in lower extremities bilaterally with some skin blistering and vesicle formation on the right and there is ongoing erythema with consideration of a cellulitis. The pleural fluid that was drained from the right lung earlier showed a white cell count of 324. 80% polynuclear cells and 15% lymphocytes. Objective - Vital Signs Vital signs: Vital Signs Temp 97.5 F L 02/11/24 08:00 Pulse 87 02/11/24 09:15 Resp 24 02/11/24 09:15 BP 88/36 02/11/24 09:15 Pulse Ox 96 02/11/24 09:34 FiO2 40 02/11/24 05:00 Intake & Output 02/10/24 02/11/24 02/11/24 18:59 06:59 18:59 Intake Total 2648.649 3913.060 740 Output Total 60 85 20 Balance 2588.649 3828.060 720 Weight 78.3 kg Intake: IV 2160 3010 690 Dextrose 5% in Water 1, 600 1200 300 000 ml @ 100 mls/hr IV . [id number] [facility] with Sodium Bicarb (1 Meq/ml) 150 ml Rx#:[id number] Sodium Chloride 0.9% 1, 1560 1560 390 000 ml @ 130 mls/hr IV . [id number] [facility] Rx#:[id number] Vancomycin 1,250 mg In 250 Sodium Chloride 0.9% 250 ml @ 125 mls/hr IVPB ONCE ONE Rx#:[id number] Intake, IV Titration 151.649 903.060 50 Amount Norepinephrine 4 mg In 151.649 777.294 Sodium Chloride 0.9% 250 ml @ 0.03 MCG/KG/MIN 7. 777 mls/hr IV .Q24H [facility] Rx#:[id number] Vasopressin 60 unit In 125.766 Sodium Chloride 0.9% 150 ml @ 0.03 UNITS/MIN 4.59 mls/hr IV .Q24H [facility] Rx#: [id number] cefTRIAXone 2 gm In 50 Sodium Chloride 0.9% 50 ml @ 100 mls/hr IVPB Q24HR [facility] Rx#:[id number] Blood Product 337 Platelet Pheresis Pas 337 Psoralen Unit [id number] Output: Urine 60 85 20 Other: Voiding Method Indwelling Catheter Indwelling Catheter - Exam GENERAL EXAM: Lethargic, 73-year-old white female, appears quite debilitated, weak, mildly Respiratory distress currently on 5 L of oxygen nasal cannula HEAD: Normocephalic and atraumatic EYES: Normal reaction of pupils, equal size. NOSE: Clear with pink turbinates. THROAT: No erythema or exudates. NECK: No masses, no JVD. CHEST: No chest wall deformity. LUNGS: Equal air entry with markedly diminished right lung. Left basilar crackles. On 5 L/min nasal cannula. Tachypneic. No accessory muscle use. CVS: S1 and S2 normal with systolic murmur, grade 2, regular rhythm. No other extra heart sounds ABDOMEN: Abdomen is mildly distended but soft, no guarding or rigidity, no hepatosplenomegaly, active bowel sounds SPINE: No scoliosis or deformity SKIN: Scattered purpura/petechiae; possible lower extremity cellulitis CENTRAL NERVOUS SYSTEM: Lethargic, follows simple commands, no focal deficits, tone is normal in all 4 extremities. EXTREMITIES: There is 3-4+ bilateral lower extremity pitting edema. No clubbing, or cyanosis. Peripheral pulses are intact. - Labs CBC & Chem 7: 02/11/24 06:32 02/11/24 06:32 Labs: Abnormal Lab Results - Last 24 Hours (Table) 02/10/24 02/10/24 02/11/24 Range/Units 18:11 19:00 00:28 WBC (3.8-10.6) k/uL RBC (3.80-5.40) m/uL Hgb (11.4-16.0) gm/dL Hct (34.0-46.0) % RDW (11.5-15.5) % Plt Count (150-450) k/uL Neutrophils # (Manual) (1.3-7.7) k/uL Lymphocytes # (Manual) (1.0-4.8) k/uL Metamyelocytes # (Man) (0) k/uL Myelocytes # (Manual) (0) k/uL Nucleated RBCs (0-0) /100 WBC Chloride (98-107) mmol/L Carbon Dioxide (22-30) mmol/L BUN (7-17) mg/dL Creatinine (0.52-1.04) mg/dL Glucose (74-99) mg/dL POC Glucose (mg/dL) 115 H 141 H (70-110) mg/dL Calcium (8.4-10.2) mg/dL Fluid Appearance Cloudy A (Clear) 02/11/24 02/11/24 02/11/24 Range/Units 06:14 06:32 06:32 WBC 11.1 H (3.8-10.6) k/uL RBC 3.57 L (3.80-5.40) m/uL Hgb 10.8 L (11.4-16.0) gm/dL Hct 33.7 L (34.0-46.0) % RDW 19.7 H (11.5-15.5) % Plt Count 21 L (150-450) k/uL Neutrophils # (Manual) 9.30 H (1.3-7.7) k/uL Lymphocytes # (Manual) 0.67 L (1.0-4.8) k/uL Metamyelocytes # (Man) 0.67 H (0) k/uL Myelocytes # (Manual) 0.22 H (0) k/uL Nucleated RBCs 2 H (0-0) /100 WBC Chloride 108 H (98-107) mmol/L Carbon Dioxide 19 L (22-30) mmol/L BUN 77 H (7-17) mg/dL Creatinine 2.99 H (0.52-1.04) mg/dL Glucose 166 H (74-99) mg/dL POC Glucose (mg/dL) 197 H (70-110) mg/dL Calcium 7.1 L (8.4-10.2) mg/dL Fluid Appearance (Clear) Microbiology - Last 24 Hours (Table) 02/09/24 13:52 Blood Culture Gram Stain - Preliminary Blood Blood Culture - Preliminary Molecular ID Assessment and Plan Assessment: Septic shock with Klebsiella oxytoca. Rule out bacterial peritonitis, spontaneous. Rule out cellulitis with secondary gram-negative sepsis. Urinary source of urinary of infection or lung infection/pneumonia is felt to be less likely. The patient remains quite hypotensive maintained on the high-dose pressors. She remains on norepinephrine and physiologic dose of vasopressin. Hypotension and shock, refractory to fluid resuscitation, requiring vasopresso rs. Recurrent right-sided pleural effusion, with multiple previous right-sided thoracentesis in the past. Last thoracentesis was on 02/06/24, a total of 2.5 L of fluid was removed at that time. In the past fluid cytology has been negative for malignant cells. Subsequently, the patient underwent a thoracentesis on 02/10/2024 where a total of 3 L of fluid was removed and another thoracentesis w as done today because of rapid recommendation of right-sided pleural effusion with evacuation of around 3.2 L of pleural fluid. No complications. Acute hypoxemic respiratory failure, currently on 5 L/min nasal cannula, secondary to above History of liver cirrhosis and abdominal ascites, status post TIPS procedure Chronic thrombocytopenia, secondary to above, status post platelet transfusion, current count is at 21 Lipase is 869, abdomen not particular tender on examination Lactic acidosis, lactic acid level is at 4.5 Hyperammonemia, takes lactulose on outpatient basis Metabolic encephalopathy, secondary to above and possible sepsis Bilateral lower extremity edema, with the possibility of right lower extremity cellulitis Acute on chronic kidney disease, likely second to hypotension and ATN, creatinine is stable and the patient remains oliguric. History of common variable immunodeficiency, receives IgG Plan: Repeat thoracentesis was done today with evacuation of 3.2 L of pleural fluid Give the patient an IV albumin 12.5 g x 2 doses Continue the bicarb infusion and discontinue the normal saline Continue norepinephrine infusion to maintain MAP above 60 mmHg or greater, the patient is currently on a combination of vasopressin and norepinephrine Continue IV Rocephin Currently on 5 L/min nasal cannula, titrate to maintain oxygen saturation of 92% or greater Patient has a recurrent right-sided pleural effusion, discussed with the daughter the possibility and the need for Pleurx catheter insertion especially with rapid recommendation of the right-sided pleural effusion No bleeding complications and platelet count remains low Monitor lower extremity edema and cellulitis Condition is critical. Prognosis poor based on above as the patient advanced liver disease/failure. Evaluation was done more than 30 minutes. Time with Patient: Greater than 30
--- NOTE | 2024-02-11 14:03 | P.PCN ---
Date of Procedure: 02/11/24 Operative Findings: Preoperative Diagnosis: Right-sided pleural effusion Postoperative Diagnosis: Same Procedure(s) Performed: Right-sided thoracentesis Anesthesia: local Surgeon: Soledad Chester Estimated Blood Loss (ml): 0 Pathology: other Condition: critical Disposition: ICU Operative Findings: Thoracentesis, right sided A time out was performed and the chest x-ray was reviewed, the appropriate side was confirmed and marked. My hands were washed immediately prior to the procedure. I wore a surgical cap, mask with protective eyewear, sterile gown and sterile gloves throughout the procedure. The patient was prepped and draped in a sterile manner using chlorhexidine scrub after the appropriate level was percussed and confirmed by ultrasound. 1% lidocaine was used to anesthesize the skin, subcutaneous tissue, superior aspect of the rib periosteum and parietal pleura. A finder needle was then introduced over the superior aspect of the rib to locate the pleural fluid; 2colored fluid was aspirated at a depth of approximately 2 cm. A 10-blade scalpel was used to myesha the skin at the insertion site. The Kvsw-[id number]-Yafpqwbg needle was then introduced through the skin incision into the pleural space using negative aspiration pressure and the red colometric indicator to confirm appropriate positioning of the needle. The thoracentesis catheter was then threaded without difficulty 3200 ml of turbid colored fluid was removed without difficulty. The catheter was then removed. No immediate complications were noted during the procedure. A post-procedure chest x-ray is pending at the time of this note. The fluid will be sent for studies. Estimated blood loss is 0cc
--- NOTE | 2024-02-11 14:52 | P.PN ---
Subjective Progress Note Date: 02/11/24 Principal diagnosis: Reason for follow-up is sepsis/Klebsiella bacteremia Patient is a 73-year-old female with a past medical history significant for reflux hypertension cirrhosis of the liver in this patient who is status post TIPS procedure did have a history of recurrent right sided effusion requiring recurrent right thoracocentesis presented to hospital with generalized weakness patient was noticed to be septic concerning for possible pneumonia and cellulitis to the right thigh did have a positive blood culture with Klebsiella. Patient is status post right-sided thoracocentesis completed in the ICU on 02/03/2024 On today's evaluation that is 02/11/2024,the patient denies any fever or any chills, patient is breathing slightly comfortably and is down to 5 L nasal cannula oxygen, the patient denies chest pain shortness of breath and no worsening cough, patient denies abdominal pain, no nausea vomiting or diarrhea. Patient white count is is 11.1 creatinine is 2.99 blood culture with Klebsiella Objective - Vital Signs Vital signs: Vital Signs Temp 97.7 F 02/11/24 12:00 Pulse 84 02/11/24 14:00 Resp 16 02/11/24 14:00 BP 107/48 02/11/24 14:00 Pulse Ox 100 02/11/24 14:00 FiO2 40 02/11/24 05:00 Intake & Output 02/10/24 02/11/24 02/11/24 18:59 06:59 18:59 Intake Total 2648.649 3913.060 1759.193 Output Total 60 85 3130 Balance 2588.649 3828.060 -1370.807 Weight 78.3 kg Intake: IV 2160 3010 1250 Dextrose 5% in Water 1, 600 1200 700 000 ml @ 100 mls/hr IV . [id number] [facility] with Sodium Bicarb (1 Meq/ml) 150 ml Rx#:[id number] Sodium Chloride 0.9% 1, 1560 1560 550 000 ml @ 10 mls/hr IV . Q24H [facility] Rx#:[id number] Vancomycin 1,250 mg In 250 Sodium Chloride 0.9% 250 ml @ 125 mls/hr IVPB ONCE ONE Rx#:[id number] Intake, IV Titration 151.649 903.060 509.193 Amount Albumin Human 25% 50 ml 50 In Empty Bag 1 bag @ 50 mls/hr IVPB Q1H [facility] Rx#: [id number] Norepinephrine 4 mg In 151.649 777.294 409.193 Sodium Chloride 0.9% 250 ml @ 0.03 MCG/KG/MIN 7. 777 mls/hr IV .Q24H [facility] Rx#:[id number] Vasopressin 60 unit In 125.766 Sodium Chloride 0.9% 150 ml @ 0.03 UNITS/MIN 4.59 mls/hr IV .Q24H [facility] Rx#: [id number] cefTRIAXone 2 gm In 50 Sodium Chloride 0.9% 50 ml @ 100 mls/hr IVPB Q24HR [facility] Rx#:[id number] Blood Product 337 Platelet Pheresis Pas 337 Psoralen Unit [id number] Output: Drainage 3100 Right Chest 3100 Urine 60 85 30 Other: Voiding Method Indwelling Catheter Indwelling Catheter Indwelling Catheter # Bowel Movements 1 - Exam GENERAL DESCRIPTION: An elderly female up in bed in no distress RESPIRATORY SYSTEM: Unlabored breathing , decreased breath sounds at bases HEART: S1 S2 regular rate and rhythm , ABDOMEN: Soft , no tenderness EXTREMITIES: Diffuse swelling to bilateral lower extremity with some erythema to the right thigh - Labs CBC & Chem 7: 02/11/24 06:32 02/11/24 06:32 Labs: Abnormal Lab Results - Last 24 Hours (Table) 02/10/24 02/10/24 02/11/24 Range/Units 18:11 19:00 00:28 WBC (3.8-10.6) k/uL RBC (3.80-5.40) m/uL Hgb (11.4-16.0) gm/dL Hct (34.0-46.0) % RDW (11.5-15.5) % Plt Count (150-450) k/uL Neutrophils # (Manual) (1.3-7.7) k/uL Lymphocytes # (Manual) (1.0-4.8) k/uL Metamyelocytes # (Man) (0) k/uL Myelocytes # (Manual) (0) k/uL Nucleated RBCs (0-0) /100 WBC Chloride (98-107) mmol/L Carbon Dioxide (22-30) mmol/L BUN (7-17) mg/dL Creatinine (0.52-1.04) mg/dL Glucose (74-99) mg/dL POC Glucose (mg/dL) 115 H 141 H (70-110) mg/dL Calcium (8.4-10.2) mg/dL Fluid Appearance Cloudy A (Clear) 02/11/24 02/11/24 02/11/24 Range/Units 06:14 06:32 06:32 WBC 11.1 H (3.8-10.6) k/uL RBC 3.57 L (3.80-5.40) m/uL Hgb 10.8 L (11.4-16.0) gm/dL Hct 33.7 L (34.0-46.0) % RDW 19.7 H (11.5-15.5) % Plt Count 21 L (150-450) k/uL Neutrophils # (Manual) 9.30 H (1.3-7.7) k/uL Lymphocytes # (Manual) 0.67 L (1.0-4.8) k/uL Metamyelocytes # (Man) 0.67 H (0) k/uL Myelocytes # (Manual) 0.22 H (0) k/uL Nucleated RBCs 2 H (0-0) /100 WBC Chloride 108 H (98-107) mmol/L Carbon Dioxide 19 L (22-30) mmol/L BUN 77 H (7-17) mg/dL Creatinine 2.99 H (0.52-1.04) mg/dL Glucose 166 H (74-99) mg/dL POC Glucose (mg/dL) 197 H (70-110) mg/dL Calcium 7.1 L (8.4-10.2) mg/dL Fluid Appearance (Clear) 02/11/24 Range/Units 11:57 WBC (3.8-10.6) k/uL RBC (3.80-5.40) m/uL Hgb (11.4-16.0) gm/dL Hct (34.0-46.0) % RDW (11.5-15.5) % Plt Count (150-450) k/uL Neutrophils # (Manual) (1.3-7.7) k/uL Lymphocytes # (Manual) (1.0-4.8) k/uL Metamyelocytes # (Man) (0) k/uL Myelocytes # (Manual) (0) k/uL Nucleated RBCs (0-0) /100 WBC Chloride (98-107) mmol/L Carbon Dioxide (22-30) mmol/L BUN (7-17) mg/dL Creatinine (0.52-1.04) mg/dL Glucose (74-99) mg/dL POC Glucose (mg/dL) 197 H (70-110) mg/dL Calcium (8.4-10.2) mg/dL Fluid Appearance (Clear) Microbiology - Last 24 Hours (Table) 02/09/24 13:52 Blood Culture Gram Stain - Preliminary Blood Blood Culture - Preliminary Klebsiella oxytoca Molecular ID Assessment and Plan (1) Sepsis Current Visit: Yes Status: Acute Code(s): A41.9 - SEPSIS, UNSPECIFIED ORGANISM SNOMED Code(s): 20815453 (2) Pneumonia Current Visit: Yes Status: Acute Code(s): J18.9 - PNEUMONIA, UNSPECIFIED ORGANISM SNOMED Code(s): 808231525 Plan: 1patient with sepsis in this patient who did have hypotension tachycardia leukopenia and now with evidence of Klebsiella bacteremia source could be right- sided pneumonia/empyema as the patient did have a history of recurrent right- sided effusion requiring recurrent thoracocentesis patient did have a negative UA CT abdominal pelvis did not show any evidence of colitis or cholecystitis there was evidence of gallstone though 2-blood cultures repeated document clearance of bacteremia 3-patient currently being treated Rocephin 2 g daily will recommend to discontinue vancomycin as currently no evidence of MRSA infection Dictation was produced using [employer] dictation software. please excuse any grammatical, word or spelling errors. Time with Patient: Less than 30
[2024-02-11] MEDS: NOREPINEPHRINE 8 MG in SODIUM CHLORIDE 0.9% 250 ML IV SCH (15:45)
[2024-02-11] MEDS: VANCOMYCIN 1,250 MG in SODIUM CHLORIDE 0.9% 250 ML IVPB ONE (15:47)
[2024-02-11 17:20] LABS: Glucose,Whole Blood 181 mg/dL (70-110)
[2024-02-11 20:51] LABS: Glucose, BF Source Pleural Fluid; Glucose, Body Fluid 76 mg/dL; LDH, Body Fluid Source Pleural Fluid; T. Protein, Body Fluid Source Pleural Fluid; Total Protein, Body Fluid 619 mg/dL
[2024-02-11] MEDS: LORazepam 2 MG/ML INJ IV STA (22:28)
[2024-02-11 23:41] LABS: Glucose,Whole Blood 177 mg/dL (70-110)
[2024-02-12] MEDS: MORPHINE SULFATE 2 MG/ML SYRINGE IVP PRN ×2 (01:05→16:15)
[2024-02-12 05:11] LABS: Anisocytosis Slight; Basophils % (A) 0 %; Eosinophils % (A) 0 %; HCT 33.1 % (34.0-46.0); HGB 10.6 gm/dL (11.4-16.0); Hypochromasia Marked; Lymphocytes # (A) 0.8 k/uL (1.0-4.8); Lymphocytes % (A) 5 %; MCH 30.7 pg (25.0-35.0); MCHC 32.1 g/dL (31.0-37.0); MCV 95.9 fL (80.0-100.0); Macrocytosis Slight; Mean Platelet Volume 8.9; Monocytes # (A) 0.5 k/uL (0-1.0); Monocytes % (A) 4 %; Neutrophils # (A) 13.1 k/uL (1.3-7.7); Neutrophils % (A) 88 %; Poikilocytosis Moderate; RBC 3.45 m/uL (3.80-5.40); RDW 19.3 % (11.5-15.5); WBC 14.9 k/uL (3.8-10.6)
[2024-02-12 05:12] LABS: Platelet Count 13 k/uL (150-450)
[2024-02-12 05:45] LABS: Glucose,Whole Blood 187 mg/dL (70-110)
[2024-02-12 05:50] LABS: African American GFR (CKD) 16 (>60 ml/min/1.73 sqM); Anion Gap 6 mmol/L; Blood Urea Nitrogen 83 mg/dL (7-17); Calcium 6.7 mg/dL (8.4-10.2); Carbon Dioxide 26 mmol/L (22-30); Chloride 105 mmol/L (98-107); Glucose 167 mg/dL (74-99); Non-African American GFR(CKD) 14 (>60 ml/min/1.73 sqM); Potassium 3.4 mmol/L (3.5-5.1); Sodium 137 mmol/L (137-145)
[2024-02-12] MEDS: POTASSIUM CHLORIDE 20 MEQ in WATER FOR INJECTION 1 100ML.BAG IVPB STA (06:27)
--- NOTE | 2024-02-12 07:32 | XR ---
EXAMINATION TYPE: XR chest 1V portable DATE OF EXAM: 02/11/2024 10:17 PM COMPARISON: 02/11/2024 CLINICAL INDICATION: Female, 73 years old with history of respiratory distress; recurrent pleural eff usion, , FINDINGS: Near complete white out of the right hemithorax. There appears to be some mass effect with slight zaheer ft of the heart towards the left from the underlying large pleural effusion. Only a small portion of the right apex remains aerated. Interstitial density throughout the left lung increased. Right IJ CVC tip in the right atrium. IMPRESSION: 1. Marked interval increase now with a large right pleural effusion resulting in near complete white out of the right hemithorax and with some mass effect on to the heart. 2. Interstitial opacities/interstitial edema in the left lung has increased. [facility], , 02/12/2024 7:30 AM
--- NOTE | 2024-02-12 07:57 | XR ---
EXAMINATION TYPE: XR chest 1V portable DATE OF EXAM: 02/12/2024 COMPARISON: NONE CLINICAL INDICATION: Female, 73 years old with history of Post Thoracentesis; , TECHNIQUE: XR chest 1V portable views of the chest. FINDINGS: Near complete opacification right hemithorax stable likely representing a combination of pleural flui d and consolidation. Left lower lobe infiltrate stable. There is no sizable pneumothorax. Central garrett e stable. Heart size unchanged. Atherosclerotic change aorta. Stable. IMPRESSION: 1. Near complete opacification of the right hemithorax likely representing a combination of pleural f luid and consolidation. 2. Left lower lobe infiltrate stable. [facility], , 02/12/2024 7:55 AM
[2024-02-12 09:12] VITALS: TEMP 96.5
--- NOTE | 2024-02-12 11:52 | XR ---
EXAMINATION TYPE: XR chest 1V portable DATE OF EXAM: 02/12/2024 COMPARISON: 02/12/2024 CLINICAL INDICATION: Female, 73 years old with history of s/p right thoracentsis; , TECHNIQUE: XR chest 1V portable views of the chest. FINDINGS: Interval marked reduction in amount of pleural fluid on the right. No sizable pneumothorax. Residual small effusion and bibasilar consolidation stable. Limited inspiration with elevated left hemidiaphra gm. Heart size and central line stable. Osseous structures unchanged. Metallic stent in the right upp er abdomen. IMPRESSION: 1. No pneumothorax. Interval significant reduction in the amount of pleural fluid. [facility], , 02/12/2024 11:50 AM
[2024-02-12 12:05] LABS: Glucose,Whole Blood 132 mg/dL (70-110)
[2024-02-12 12:36] VITALS: BMI 33.0
--- NOTE | 2024-02-12 13:35 | P.PCN ---
Date of Procedure: 02/12/24 Operative Findings: Operative Findings: Preoperative Diagnosis: Right-sided pleural effusion Postoperative Diagnosis: Same Procedure(s) Performed: Right-sided thoracentesis Anesthesia: local Surgeon: Soledad Chester Estimated Blood Loss (ml): 0 Pathology: other Condition: critical Disposition: ICU Operative Findings: Thoracentesis, right sided A time out was performed and the chest x-ray was reviewed, the appropriate side was confirmed and marked. My hands were washed immediately prior to the procedure. I wore a surgical cap, mask with protective eyewear, sterile gown and sterile gloves throughout the procedure. The patient was prepped and draped in a sterile manner using chlorhexidine scrub after the appropriate level was percussed and confirmed by ultrasound. 1% lidocaine was used to anesthesize the skin, subcutaneous tissue, superior aspect of the rib periosteum and parietal pleura. A finder needle was then introduced over the superior aspect of the rib to locate the pleural fluid; 2colored fluid was aspirated at a depth of approximately 2 cm. A 10-blade scalpel was used to myesha the skin at the insertion site. The [id number]-y-Ylrfaevd needle was then introduced through the skin incision into the pleural space using negative aspiration pressure and the red colometric indicator to confirm appropriate positioning of the needle. The thoracentesis catheter was then threaded without difficulty 3500 ml of turbid colored fluid was removed without difficulty. The catheter was then removed. No immediate complications were noted during the procedure. A post-procedure chest x-ray is pending at the time of this note. The fluid will be sent for studies. Estimated blood loss is 0cc
--- NOTE | 2024-02-12 13:44 | P.PN ---
Subjective Progress Note Date: 02/12/24 Patient is a 73-year-old female with past medical history significant for common variable immunodeficiency, liver cirrhosis, abdominal ascites, TIPS procedure, and recurrent right-sided pleural effusion. Pulmonary consult was originally placed for recurrent right-sided pleural effusion. Patient has had multiple previous right-sided thoracentesis in the past. Last thoracentesis was on 02/06/24, a total of 2.5 L of fluid was removed at that time. In the past fluid cytology has been negative for malignant cells. As reported above, patient does have liver cirrhosis and history of ascites with frequent paracentesis status post TIPS procedure. She does follow at the [facility]. Patient presents back to the ED yesterday afternoon complaining chiefly of progressively worsening shortness of breath. Also, reports from the ER provider, of large volume diarrhea. She does take lactulose outpatient. Chest x-ray showing a recurrent large right-sided pleural effusion. While in emergency department as an overflow, noted to be hypotensive, she was bolused with a total of 2 L normal saline, and started on normal saline at 130 mL/h. Remained hypotensive, and started on norepinephrine by the ER provider. She was then transferred to the intensive care unit. CBC: WBC count 3.2, hemoglobin 13.1, hematocrit 39.2, platelets low at 14,000. CMP: Sodium 137, potassium 3.4, chloride 106, serum bicarb 20, BUN 66, creatinine higher than baseline at 2.62, glucose 67. Lactic elevated at 4.3 and down to 3.7. LFTs are mildly elevated. Ammonia 46. She does take lactulose on an outpatient basis. Troponin 0.016. Amylase 134, lipase 869. Albumin 2.3. Patient was started on empiric antibi otics in the form of Rocephin and vancomycin in the ED. Patient is currently being evaluated in room 263. Currently, patient is lethargic she is unable to provide information for HPI. Unfortunately, no family present. Current vital signs include a heart rate of 100 bpm, blood pressure is hypotensive at 71/37 mmHg. Norepinephrine is being titrated up, and she may need second vasopressor. Normal saline also infusing at 130 mL/h. She is afebrile. Breathing is tachypneic. She is on 5 L/min nasal cannula. SpO2 is reading 94%. Markedly diminshed lung sounds on the right. Right lower extremity is erythemic and painful. Prognosis guarded. On 02/11/2024, the patient is being seen for a follow-up. This morning, the patient is on 5 L of oxygen by nasal cannula. Overnight, the patient was utilizing BiPAP at a pressure of 12 over 5 cm of water with an FiO2 of 40%. Noted repeat chest x-ray was done and the patient has a very rapid reaccumulation of the right-sided pleural effusion which was considered to be very large in size. Based on that, I performed another thoracentesis on this patient at the bedside and a total of 3.2 L of pleural fluid was aspirated from the right lung. No complications. Improved aeration of the right lung following the thoracentesis. As such, the patient has a total of 6 L of pleural fluid drained over the past 24 hours. Will supplement the patient with albumin 12.5 g x 2 doses. Urine output remains quite diminished. Renal function is impaired and the patient's creatinine today is at 2.99 with a BUN of 77. Electrolytes show a serum bicarbonate of 19 and the patient remains on a bicarb infusion which is running at 100 cc an hour. The patient remains on norepinephrine at 0.24 mcg/kg/min and vasopressin physiologic dose. The patient remains on IV Rocephin 2 g every 24 hours. The blood culture was positive for Klebsiella oxytoca. At the same time, continues to have extensive edema in lower extremities bilaterally with some skin blistering and vesicle formation on the right and there is ongoing erythema with consideration of a cellulitis. The pleural fluid that was drained from the right lung earlier showed a white cell count of 324. 80% polynuclear cells and 15% lymphocytes. 02/12/2024, the patient is encephalopathic, obtunded, short of breath, and overnight the patient was placed back on the BiPAP. The patient had another successful thoracentesis yesterday and she was doing well till the evening when she started having increased shortness of breath and labored breathing. Based on that, the patient was placed back on a BiPAP pressure of 12 cm of water with FiO2 of 40%. Repeat chest x-ray was done and the patient was found to have another recurrent large right-sided pleural effusion. The patient remains on pressors and currently she is on norepinephrine 0.16 mcg/kg/min and vasopressin at 0.03 units. Urine output is minimal in the order of 5 to 10 cc an hour. The patient remains on a bicarb infusion. The blood work from today showed a white cell count of 14.5, hemoglobin 10.6 and a platelet count of 13. Sodium is at 137, potassium is at 3.4, BUN is 83 with a creatinine of 3.15. Serum bicarb is up to 26. The serum ammonia level was down to 28. Calcium level is at 6.7. She does have some bloody stool also in the stool for occult blood was also positive. I contacted the daughter and explained her to the situation. The patient's condition is obviously decompensated. I offered the patient another thoracentesis and the family was agreeable. Based on that, thoracentesis was done and a total of 3.5 L of pleural fluid was aspirated from the right lung successfully. During the process, the patient was on BiPAP. However, following the procedure, within the next 10 to 15 minutes, the patient became quite and apneic while being on a BiPAP. I was able to intubate the patient. I contacted the daughter and the sisters again. Based on their wishes, we decided not to reintubate the patient. She was placed on oxygen and nasal cannula at 5 L and her breathing gradually picked up. At this point in time, she is on 5 L with a pulse ox of 97%. Remains on pressors. Encephalopathic. Sluggishly responsive to verbal stimulation. Withdraws to painful stimulation all 4 extremities. Extensive edema lower extremities bilaterally. Objective - Vital Signs Vital signs: Vital Signs Temp 96.5 F L 02/12/24 09:00 Pulse 84 02/12/24 12:15 Resp 11 L 02/12/24 12:15 BP 101/44 02/12/24 12:15 Pulse Ox 99 02/12/24 12:15 FiO2 40 02/12/24 10:59 Intake & Output 02/11/24 02/12/24 02/12/24 18:59 06:59 18:59 Intake Total 2811.413 2041.960 1110.596 Output Total 3140 25 3415 Balance -093.130 3658.960 -2304.404 Weight 82 kg 82 kg Intake: IV 2050 1530 660 Dextrose 5% in Water 1, 1200 1300 600 000 ml @ 100 mls/hr IV . [id number] [facility] with Sodium Bicarb (1 Meq/ml) 150 ml Rx#:[id number] Potassium Chloride 20 meq 100 In Water For Injection 1 100ml.bag @ 50 mls/hr IVPB ONCE STA Rx#: [id number] Sodium Chloride 0.9% 1, 600 130 60 000 ml @ 10 mls/hr IV . Q24H [facility] Rx#:[id number] Vancomycin 1,250 mg In 250 Sodium Chloride 0.9% 250 ml @ 125 mls/hr IVPB ONCE ONE Rx#:[id number] Intake, IV Titration 761.413 511.960 450.596 Amount Albumin Human 25% 50 ml 100 In Empty Bag 1 bag @ 50 mls/hr IVPB Q1H [facility] Rx#: [id number] Norepinephrine 4 mg In 607.373 Sodium Chloride 0.9% 250 ml @ 0.03 MCG/KG/MIN 7. 777 mls/hr IV .Q24H [facility] Rx#:[id number] Norepinephrine 8 mg In 4.04 511.960 258.000 Sodium Chloride 0.9% 250 ml @ 0.03 MCG/KG/MIN 4. 545 mls/hr IV .Q24H [facility] Rx#:[id number] Vasopressin 60 unit In 142.596 Sodium Chloride 0.9% 150 ml @ 0.03 UNITS/MIN 4.59 mls/hr IV .Q24H [facility] Rx#: [id number] cefTRIAXone 2 gm In 50 50 Sodium Chloride 0.9% 50 ml @ 100 mls/hr IVPB Q24HR [facility] Rx#:[id number] Output: Drainage 3100 3400 Right Chest 3100 3400 Urine 40 25 15 Other: Voiding Method Indwelling Catheter Indwelling Catheter Indwelling Catheter # Bowel Movements 1 1 - Exam GENERAL EXAM: Lethargic, 73-year-old white female, encephalopathic, obtunded, lethargic, currently in moderate degree respiratory distress currently on 5 L of oxygen nasal cannula HEAD: Normocephalic and atraumatic EYES: Normal reaction of pupils, equal size. NOSE: Clear with pink turbinates. THROAT: No erythema or exudates. NECK: No masses, no JVD. CHEST: No chest wall deformity. LUNGS: Equal air entry with markedly diminished right lung. Left basilar crackles. On 5 L/min nasal cannula. Tachypneic. No accessory muscle use. CVS: S1 and S2 normal with systolic murmur, grade 2, regular rhythm. No other extra heart sounds ABDOMEN: Abdomen is mildly distended but soft, no guarding or rigidity, no hepatosplenomegaly, active bowel sounds SPINE: No scoliosis or deformity SKIN: Scattered purpura/petechiae; possible lower extremity cellulitis CENTRAL NERVOUS SYSTEM: Significant encephalopathy, response to painful stimulation, does not communicate at this point in time. EXTREMITIES: There is 3-4+ bilateral lower extremity pitting edema. No clubbing, or cyanosis. Peripheral pulses are intact. - Labs CBC & Chem 7: 02/12/24 04:30 02/12/24 04:30 Labs: Abnormal Lab Results - Last 24 Hours (Table) 02/11/24 02/11/24 02/12/24 Range/Units 17:19 23:39 04:30 WBC 14.9 H (3.8-10.6) k/uL RBC 3.45 L (3.80-5.40) m/uL Hgb 10.6 L (11.4-16.0) gm/dL Hct 33.1 L (34.0-46.0) % RDW 19.3 H (11.5-15.5) % Plt Count 13 L* (150-450) k/uL Neutrophils # 13.1 H (1.3-7.7) k/uL Lymphocytes # 0.8 L (1.0-4.8) k/uL Potassium (3.5-5.1) mmol/L BUN (7-17) mg/dL Creatinine (0.52-1.04) mg/dL Glucose (74-99) mg/dL POC Glucose (mg/dL) 181 H 177 H (70-110) mg/dL Calcium (8.4-10.2) mg/dL Stool Occult Blood (Negative) 02/12/24 02/12/24 02/12/24 Range/Units 04:30 05:43 05:52 WBC (3.8-10.6) k/uL RBC (3.80-5.40) m/uL Hgb (11.4-16.0) gm/dL Hct (34.0-46.0) % RDW (11.5-15.5) % Plt Count (150-450) k/uL Neutrophils # (1.3-7.7) k/uL Lymphocytes # (1.0-4.8) k/uL Potassium 3.4 L (3.5-5.1) mmol/L BUN 83 H (7-17) mg/dL Creatinine 3.15 H (0.52-1.04) mg/dL Glucose 167 H (74-99) mg/dL POC Glucose (mg/dL) 187 H (70-110) mg/dL Calcium 6.7 L (8.4-10.2) mg/dL Stool Occult Blood Positive H (Negative) 02/12/24 Range/Units 12:04 WBC (3.8-10.6) k/uL RBC (3.80-5.40) m/uL Hgb (11.4-16.0) gm/dL Hct (34.0-46.0) % RDW (11.5-15.5) % Plt Count (150-450) k/uL Neutrophils # (1.3-7.7) k/uL Lymphocytes # (1.0-4.8) k/uL Potassium (3.5-5.1) mmol/L BUN (7-17) mg/dL Creatinine (0.52-1.04) mg/dL Glucose (74-99) mg/dL POC Glucose (mg/dL) 132 H (70-110) mg/dL Calcium (8.4-10.2) mg/dL Stool Occult Blood (Negative) Microbiology - Last 24 Hours (Table) 02/09/24 13:52 Blood Culture Gram Stain - Final Blood Blood Culture - Final Klebsiella oxytoca Molecular ID 02/10/24 19:00 Gram Stain - Preliminary Pleural Fluid Body Fluid Culture - Preliminary Assessment and Plan Assessment: Septic shock with Klebsiella oxytoca. Rule out bacterial peritonitis, spontaneous. Rule out cellulitis with secondary gram-negative sepsis. Urinary source of urinary of infection or lung infection/pneumonia is felt to be less likely. The patient remains quite hypotensive maintained on the high-dose pressors. She remains on norepinephrine and physiologic dose of vasopressin. Urine output remains low. The patient is developing progressive multisystem organ failure. Hypotension and shock, refractory to fluid resuscitation, requiring vasopressors. Recurrent right-sided pleural effusion, with multiple previous right-sided th oracentesis in the past. Last thoracentesis was on 02/06/24, a total of 2.5 L of fluid was removed at that time. In the past fluid cytology has been negative for malignant cells. Subsequently, the patient underwent a thoracentesis on 02/10/2024 where a total of 3 L of fluid was removed and another thoracentesis was done today because of rapid recommendation of right-sided pleural effusion with evacuation of around 3.2 L of pleural fluid. Another thoracentesis on 02/12/2024 was performed a total of 3.5 L of fluid was aspirated. No complications. No pneumothorax. The patient encountered brief apnea following the procedure and hide she is currently breathing more comfortable. She is on 5 L of oxygen by nasal cannula. Acute hypoxemic respiratory failure, currently on 5 L/min nasal cannula, secondary to above History of liver cirrhosis and abdominal ascites, status post TIPS procedure Chronic thrombocytopenia, secondary to above, status post platelet transfusion, current count is at 13 Lipase is 869, abdomen not particular tender on examination Lactic acidosis, lactic acid level is at 4.5 Hyperammonemia, takes lactulose on outpatient basis Metabolic encephalopathy, secondary to above and possible sepsis Bilateral lower extremity edema, with the possibility of right lower extremity cellulitis Acute on chronic kidney disease, likely second to hypotension and ATN, crea tinine is stable and the patient remains oliguric. History of common variable immunodeficiency, receives IgG All called blood in the stool is positive Plan: Repeat thoracentesis was done today with evacuation of 3.5 L of pleural fluid Currently on 5 L of O2 nasal cannula Continue the bicarb infusion Continue norepinephrine infusion to maintain MAP above 60 mmHg or greater, the patient is currently on a combination of vasopressin and norepinephrine Continue IV Rocephin Currently on 5 L/min nasal cannula, titrate to maintain oxygen saturation of 92% or greater Family is made this patient DNR DNI CODE STATUS platelet count remains low Monitor lower extremity edema and cellulitis Condition is critical. Prognosis poor based on above as the patient advanced liver disease/failure. Possible hospice care and this will be further discussed with the family. Evaluation was done more than 30 minutes. Time with Patient: Greater than 30
--- NOTE | 2024-02-12 14:44 | P.PN ---
Subjective Progress Note Date: 02/12/24 Principal diagnosis: Reason for follow-up is sepsis/Klebsiella bacteremia Patient is a 73-year-old female with a past medical history significant for reflux hypertension cirrhosis of the liver in this patient who is status post TIPS procedure did have a history of recurrent right sided effusion requiring recurrent right thoracocentesis presented to hospital with generalized weakness patient was noticed to be septic concerning for possible pneumonia and cellulitis to the right thigh did have a positive blood culture with Klebsiella. Patient is status post right-sided thoracocentesis completed in the ICU on 02/03/2024 On today's evaluation that is 02/12/2024,the patient remains to be afebrile, patient is down to 2 L nasal cannula supplemental oxygen and denies any worsening shortness of breath no chest pain or any worsening cough.Patient denies having any nausea or vomiting, no abdominal pain still have significant swelling to lower extremity. Patient white count is 14.9 creatinine 3.15 pleural fluid culture currently pending Objective - Vital Signs Vital signs: Vital Signs Temp 96.5 F L 02/12/24 09:00 Pulse 87 02/12/24 10:00 Resp 16 02/12/24 10:00 BP 105/70 02/12/24 10:00 Pulse Ox 100 02/12/24 10:00 FiO2 40 02/12/24 10:59 Intake & Output 02/11/24 02/12/24 02/12/24 18:59 06:59 18:59 Intake Total 2811.413 2041.960 576.056 Output Total 3140 25 10 Balance -750.999 4580.960 566.056 Weight 82 kg Intake: IV 0 1530 330 Dextrose 5% in Water 1, 1200 1300 300 000 ml @ 100 mls/hr IV . [id number] [facility] with Sodium Bicarb (1 Meq/ml) 150 ml Rx#:[id number] Potassium Chloride 20 meq 100 In Water For Injection 1 100ml.bag @ 50 mls/hr IVPB ONCE STA Rx#: [id number] Sodium Chloride 0.9% 1, 600 130 30 000 ml @ 10 mls/hr IV . Q24H [facility] Rx#:[id number] Vancomycin 1,250 mg In 250 Sodium Chloride 0.9% 250 ml @ 125 mls/hr IVPB ONCE ONE Rx#:[id number] Intake, IV Titration 761.413 511.960 246.056 Amount Albumin Human 25% 50 ml 100 In Empty Bag 1 bag @ 50 mls/hr IVPB Q1H [facility] Rx#: [id number] Norepinephrine 4 mg In 607.373 Sodium Chloride 0.9% 250 ml @ 0.03 MCG/KG/MIN 7. 777 mls/hr IV .Q24H [facility] Rx#:[id number] Norepinephrine 8 mg In 4.04 511.960 196.056 Sodium Chloride 0.9% 250 ml @ 0.03 MCG/KG/MIN 4. 545 mls/hr IV .Q24H [facility] Rx#:[id number] cefTRIAXone 2 gm In 50 50 Sodium Chloride 0.9% 50 ml @ 100 mls/hr IVPB Q24HR [facility] Rx#:[id number] Output: Drainage 3100 Right Chest 3100 Urine 40 25 10 Other: Voiding Method Indwelling Catheter Indwelling Catheter Indwelling Catheter # Bowel Movements 1 - Exam GENERAL DESCRIPTION: An elderly female up in bed in no distress RESPIRATORY SYSTEM: Unlabored breathing , decreased breath sounds at bases HEART: S1 S2 regular rate and rhythm , ABDOMEN: Soft , no tenderness EXTREMITIES: Diffuse swelling to bilateral lower extremity with large blister to the right leg - Labs CBC & Chem 7: 02/12/24 04:30 02/12/24 04:30 Labs: Abnormal Lab Results - Last 24 Hours (Table) 02/11/24 02/11/24 02/11/24 Range/Units 11:57 17:19 23:39 WBC (3.8-10.6) k/uL RBC (3.80-5.40) m/uL Hgb (11.4-16.0) gm/dL Hct (34.0-46.0) % RDW (11.5-15.5) % Plt Count (150-450) k/uL Neutrophils # (1.3-7.7) k/uL Lymphocytes # (1.0-4.8) k/uL Potassium (3.5-5.1) mmol/L BUN (7-17) mg/dL Creatinine (0.52-1.04) mg/dL Glucose (74-99) mg/dL POC Glucose (mg/dL) 197 H 181 H 177 H (70-110) mg/dL Calcium (8.4-10.2) mg/dL Stool Occult Blood (Negative) 02/12/24 02/12/24 02/12/24 Range/Units 04:30 04:30 05:43 WBC 14.9 H (3.8-10.6) k/uL RBC 3.45 L (3.80-5.40) m/uL Hgb 10.6 L (11.4-16.0) gm/dL Hct 33.1 L (34.0-46.0) % RDW 19.3 H (11.5-15.5) % Plt Count 13 L* (150-450) k/uL Neutrophils # 13.1 H (1.3-7.7) k/uL Lymphocytes # 0.8 L (1.0-4.8) k/uL Potassium 3.4 L (3.5-5.1) mmol/L BUN 83 H (7-17) mg/dL Creatinine 3.15 H (0.52-1.04) mg/dL Glucose 167 H (74-99) mg/dL POC Glucose (mg/dL) 187 H (70-110) mg/dL Calcium 6.7 L (8.4-10.2) mg/dL Stool Occult Blood (Negative) 02/12/24 Range/Units 05:52 WBC (3.8-10.6) k/uL RBC (3.80-5.40) m/uL Hgb (11.4-16.0) gm/dL Hct (34.0-46.0) % RDW (11.5-15.5) % Plt Count (150-450) k/uL Neutrophils # (1.3-7.7) k/uL Lymphocytes # (1.0-4.8) k/uL Potassium (3.5-5.1) mmol/L BUN (7-17) mg/dL Creatinine (0.52-1.04) mg/dL Glucose (74-99) mg/dL POC Glucose (mg/dL) (70-110) mg/dL Calcium (8.4-10.2) mg/dL Stool Occult Blood Positive H (Negative) Microbiology - Last 24 Hours (Table) 02/10/24 19:00 Gram Stain - Preliminary Pleural Fluid Body Fluid Culture - Preliminary 02/09/24 13:52 Blood Culture Gram Stain - Preliminary Blood Blood Culture - Preliminary Klebsiella oxytoca Molecular ID Assessment and Plan (1) Sepsis Current Visit: Yes Status: Acute Code(s): A41.9 - SEPSIS, UNSPECIFIED ORGANISM SNOMED Code(s): 38073423 (2) Pneumonia Current Visit: Yes Status: Acute Code(s): J18.9 - PNEUMONIA, UNSPECIFIED ORGANISM SNOMED Code(s): 857789606 Plan: 1patient with sepsis in this patient who did have hypotension tachycardia leukopenia and now with evidence of Klebsiella bacteremia source could be right- sided pneumonia/empyema as the patient did have a history of recurrent right- sided effusion requiring recurrent thoracocentesis patient did have a negative UA CT abdominal pelvis did not show any evidence of colitis or cholecystitis there was evidence of gallstone though 2-blood cultures with Klebsiella sensitive pathogen pleural fluid culture currently pending 3-patient is currently getting treatment with Rocephin 2 g daily however family leaning more towards hospice oriented which may be appropriate if that is the case antibiotics can be safely discontinued Dictation was produced using [employer] dictation software. please excuse any grammatical, word or spelling errors. Time with Patient: Less than 30
[2024-02-12 15:04] VITALS: PULSE 87
[2024-02-12 16:48] VITALS: BP 69/38
--- NOTE | 2024-02-13 00:06 | P.PN ---
Subjective Progress Note Date: 02/11/24 Patient is a 73-year-old female with a past medical history of hypertension, history of pleural effusion with right-sided thoracentesis, thrombocytopenia, chronic liver disease, history of January 2023, multiple paracentesis, GERD and also common variable immunodeficiency, anxiety/depression. Patient was brought to the hospital due to complaints of shortness of breath. Patient has been having recurrent right-sided pleural effusion and what was last drained on January 27, 2024. Patient has been doing well until last couple of days started breath is getting worse. Patient is also having increasing watery stools she is also taking lactulose for ammonia level. Otherwise denied any fever or chills. No fever no chills. Denied any hematemesis or melena. No complaints of chest pain. Patient is also having chronic leg swelling.EKG on admission showed atrial fibrillation with heart rate 90. Chest x-ray showed interval marked progression of consolidation and pleural fluid on the right with a large right-sided pleural effusion. Stable left lower lobe infiltrate. CT of the abdomen pelvis showed cirrhosis and splenomegaly. Moderate to large amount of ascites. Gallstones. Very large right pleural effusion with atelectasis of the lower right lung. Laboratory data showed WBC 3.8 hemoglobin 13.1 and platelets 14 Sodium 137 potassium 3.4 chloride 106 bicarb is 20 BUN 66 and creatinine 2.62, lactic acid 4.3 total bili 3.0 AST 87 ALT 72 and alk phos 250 and ammonia 46 Amylase 134 and lipase level is 869. Patient was hypotensive on admission with blood pressure 86/50 pulse is 83 respiration 23 and pulse ox 97% on 2 L via nasal cannula. 02/11/2024 Patient is in MICU. Patient is lethargic and unable to communicate. Currently on oxygen at 5 L via nasal cannula. Chest x-ray showed increasing right-sided pleural effusion with pulmonary venous congestion seen bilaterally and scattered infiltrates. Patient is status post right-sided thoracentesis at bedside by pulmonary with 3 point later fluid was aspirated.. Patient remains on pressor support with Levophed and vasopressin. Also on antibiotics in the form of ceftriaxone. Blood cultures positive for Klebsiella oxytoca. Laboratory data showed WBC 11.1 hemoglobin 10.8 and platelets 21 Sodium 137 potassium 3.7 chloride 108 bicarb is 19 BUN 77 and creatinine 2.99 and blood sugar 166 and calcium 7.1 Pulmonary and ID is on board. Objective - Vital Signs Vital signs: Vital Signs Temp 97.5 F L 02/11/24 08:00 Pulse 93 02/11/24 10:15 Resp 26 H 02/11/24 10:15 BP 105/51 02/11/24 10:15 Pulse Ox 97 02/11/24 10:15 FiO2 40 02/11/24 05:00 Intake & Output 02/10/24 02/11/24 02/11/24 18:59 06:59 18:59 Intake Total 2648.649 3913.060 970 Output Total 60 85 20 Balance 2588.649 3828.060 950 Weight 78.3 kg Intake: IV 2160 3010 920 Dextrose 5% in Water 1, 600 1200 400 000 ml @ 100 mls/hr IV . [id number] [facility] with Sodium Bicarb (1 Meq/ml) 150 ml Rx#:[id number] Sodium Chloride 0.9% 1, 1560 1560 520 000 ml @ 130 mls/hr IV . Q7H42M [facility] Rx#:[id number] Vancomycin 1,250 mg In 250 Sodium Chloride 0.9% 250 ml @ 125 mls/hr IVPB ONCE ONE Rx#:[id number] Intake, IV Titration 151.649 903.060 50 Amount Norepinephrine 4 mg In 151.649 777.294 Sodium Chloride 0.9% 250 ml @ 0.03 MCG/KG/MIN 7. 777 mls/hr IV .Q24H [facility] Rx#:[id number] Vasopressin 60 unit In 125.766 Sodium Chloride 0.9% 150 ml @ 0.03 UNITS/MIN 4.59 mls/hr IV .Q24H [facility] Rx#: [id number] cefTRIAXone 2 gm In 50 Sodium Chloride 0.9% 50 ml @ 100 mls/hr IVPB Q24HR [facility] Rx#:[id number] Blood Product 337 Platelet Pheresis Pas 337 Psoralen Unit [id number] Output: Urine 60 85 20 Other: Voiding Method Indwelling Catheter Indwelling Catheter - Exam PHYSICAL EXAMINATION: Patient is obtunded. Unable to communicate. HEENT: Normocephalic. Neck is supple. Pupils reactive. Nostrils clear. Oral cavity is moist. Neck reveals no JVD, carotid bruits, or thyromegaly. CHEST EXAMINATION: Trachea is central. Symmetrical expansion. Right-sided diminished sounds. No wheezing. Nonlabored breathing. CARDIAC: Normal S1, S2 with no gallops. No murmurs ABDOMEN: Soft. Bowel sounds normal. No organomegaly. No abdominal bruits. Extremities: Bilateral lower extremity trace edema with redness and mild warmth. No clubbing or cyanosis Neurologically awake, alert, oriented x 0-1. Able to move all extremities. No gross focal neurological deficit. Skin: No rash or skin lesions. Psychiatric: Coperative. Could not be assessed completely. Musculoskeletal: No joint swelling or deformity. - Labs CBC & Chem 7: 02/12/24 04:30 02/12/24 04:30 Labs: Abnormal Lab Results - Last 24 Hours (Table) 02/10/24 02/10/24 02/11/24 Range/Units 18:11 19:00 00:28 WBC (3.8-10.6) k/uL RBC (3.80-5.40) m/uL Hgb (11.4-16.0) gm/dL Hct (34.0-46.0) % RDW (11.5-15.5) % Plt Count (150-450) k/uL Neutrophils # (Manual) (1.3-7.7) k/uL Lymphocytes # (Manual) (1.0-4.8) k/uL Metamyelocytes # (Man) (0) k/uL Myelocytes # (Manual) (0) k/uL Nucleated RBCs (0-0) /100 WBC Chloride (98-107) mmol/L Carbon Dioxide (22-30) mmol/L BUN (7-17) mg/dL Creatinine (0.52-1.04) mg/dL Glucose (74-99) mg/dL POC Glucose (mg/dL) 115 H 141 H (70-110) mg/dL Calcium (8.4-10.2) mg/dL Fluid Appearance Cloudy A (Clear) 02/11/24 02/11/24 02/11/24 Range/Units 06:14 06:32 06:32 WBC 11.1 H (3.8-10.6) k/uL RBC 3.57 L (3.80-5.40) m/uL Hgb 10.8 L (11.4-16.0) gm/dL Hct 33.7 L (34.0-46.0) % RDW 19.7 H (11.5-15.5) % Plt Count 21 L (150-450) k/uL Neutrophils # (Manual) 9.30 H (1.3-7.7) k/uL Lymphocytes # (Manual) 0.67 L (1.0-4.8) k/uL Metamyelocytes # (Man) 0.67 H (0) k/uL Myelocytes # (Manual) 0.22 H (0) k/uL Nucleated RBCs 2 H (0-0) /100 WBC Chloride 108 H (98-107) mmol/L Carbon Dioxide 19 L (22-30) mmol/L BUN 77 H (7-17) mg/dL Creatinine 2.99 H (0.52-1.04) mg/dL Glucose 166 H (74-99) mg/dL POC Glucose (mg/dL) 197 H (70-110) mg/dL Calcium 7.1 L (8.4-10.2) mg/dL Fluid Appearance (Clear) Microbiology - Last 24 Hours (Table) 02/09/24 13:52 Blood Culture Gram Stain - Preliminary Blood Blood Culture - Preliminary Molecular ID Assessment and Plan Assessment: Hypotension with possible sepsis/septic shock requiring pressor support with Levophed and vasopressin. Chest x-ray showed interval marked progression of consolidation and pleural fluid on the right with a large right-sided pleural ef fusion and compressive n atelectasis.. Bilateral lower extremity cellulitis Klebsiella oxytoca bacteremia History of previous urinary tract infection with Klebsiella pneumonia Recurrent right-sided pleural effusion with history of multiple thoracentesis most recent on 02/06/2024 with 2.5 L fluid removal. Patient is status post right-sided thoracentesis with 3.2 L fluid removal. Acute hypoxic respiratory failure on oxygen at 5 L via nasal cannula Liver cirrhosis with abdominal ascites and history of TIPS procedure. Chronic thrombocytopenia secondary to liver disease/cirrhosis Lactic acidosis on admission Hyperammonemia Metabolic/hepatic encephalopathy secondary to sepsis and liver cirrhosis Acute on chronic renal disease stage IV possibly ATN. Baseline creatinine 1.87 creatinine admission was 2.6 Non-anion gap metabolic acidosis Common variable immunodeficiency. Patient receives IV IgG Related lipase level 869 and amylase 134. Patient denied any complaints of abdominal pain on admission. DVT prophylaxis SCDs due to thrombocytopenia Plan: Patient is currently in MICU. Patient will be continued on antibiotics of ceftriaxone and vancomycin to cover bacteremia and lower extremity cellulitis as well. Follow-up renal function closely. Patient is currently on pressor support with norepinephrine and vasopressin. Continued on IV hydration. Status post right thoracentesis after platelet transfusion. Follow-up repeat blood cultures. Continue with lactulose. Patient is critically ill at this time. Follow-up closely. Time with Patient: Greater than 30
--- NOTE | 2024-02-13 00:13 | P.PN ---
Subjective Progress Note Date: 02/12/24 Patient is a 73-year-old female with a past medical history of hypertension, history of pleural effusion with right-sided thoracentesis, thrombocytopenia, chronic liver disease, history of January 2023, multiple paracentesis, GERD and also common variable immunodeficiency, anxiety/depression. Patient was brought to the hospital due to complaints of shortness of breath. Patient has been having recurrent right-sided pleural effusion and what was last drained on January 27, 2024. Patient has been doing well until last couple of days started breath is getting worse. Patient is also having increasing watery stools she is also taking lactulose for ammonia level. Otherwise denied any fever or chills. No fever no chills. Denied any hematemesis or melena. No complaints of chest pain. Patient is also having chronic leg swelling.EKG on admission showed atrial fibrillation with heart rate 90. Chest x-ray showed interval marked progression of consolidation and pleural fluid on the right with a large right-sided pleural effusion. Stable left lower lobe infiltrate. CT of the abdomen pelvis showed cirrhosis and splenomegaly. Moderate to large amount of ascites. Gallstones. Very large right pleural effusion with atelectasis of the lower right lung. Laboratory data showed WBC 3.8 hemoglobin 13.1 and platelets 14 Sodium 137 potassium 3.4 chloride 106 bicarb is 20 BUN 66 and creatinine 2.62, lactic acid 4.3 total bili 3.0 AST 87 ALT 72 and alk phos 250 and ammonia 46 Amylase 134 and lipase level is 869. Patient was hypotensive on admission with blood pressure 86/50 pulse is 83 respiration 23 and pulse ox 97% on 2 L via nasal cannula. 02/11/2024 Patient is in MICU. Patient is lethargic and unable to communicate. Currently on oxygen at 5 L via nasal cannula. Chest x-ray showed increasing right-sided pleural effusion with pulmonary venous congestion seen bilaterally and scattered infiltrates. Patient is status post right-sided thoracentesis at bedside by pulmonary with 3 point later fluid was aspirated.. Patient remains on pressor support with Levophed and vasopressin. Also on antibiotics in the form of ceftriaxone. Blood cultures positive for Klebsiella oxytoca. Laboratory data showed WBC 11.1 hemoglobin 10.8 and platelets 21 Sodium 137 potassium 3.7 chloride 108 bicarb is 19 BUN 77 and creatinine 2.99 and blood sugar 166 and calcium 7.1 Pulmonary and ID is on board. 02/12/2024 Patient is in MICU. Still encephalopathic. On oxygen via nasal cannula. Overnight patient was on BiPAP. Repeat chest x-ray showed recurrent large right-sided pleural effusion. Patient is also on pressor support with vasopressin and norepinephrine. Patient was also noted to have bloody stool Hemoccult positive for blood. Laboratory data showed WBC 14.9 hemoglobin 10.6 and platelets 13 sodium 137 potassium 3.4 chloride 105 bicarb is 26 BUN 83 creatinine 3.15 and blood sugar 167 and calcium 6.7. C. difficile is negative. Patient underwent right-sided thoracentesis again with 3.5 L fluid removal. Patient was read to put back again on BiPAP and later required intubation. According to the family wishes, comfort measures were initiated. Prognosis poor at this time. Objective - Vital Signs Vital signs: Vital Signs Temp 96.5 F L 02/12/24 09:00 Pulse 83 02/12/24 11:30 Resp 13 02/12/24 11:30 BP 102/47 02/12/24 11:30 Pulse Ox 99 02/12/24 11:30 FiO2 40 02/12/24 10:59 Intake & Output 02/11/24 02/12/24 02/12/24 18:59 06:59 18:59 Intake Total 2811.413 2041.960 686.056 Output Total 3140 25 15 Balance -755.569 1392.960 671.056 Weight 82 kg Intake: IV 2050 1530 440 Dextrose 5% in Water 1, 1200 1300 400 000 ml @ 100 mls/hr IV . [id number] [facility] with Sodium Bicarb (1 Meq/ml) 150 ml Rx#:[id number] Potassium Chloride 20 meq 100 In Water For Injection 1 100ml.bag @ 50 mls/hr IVPB ONCE STA Rx#: [id number] Sodium Chloride 0.9% 1, 600 130 40 000 ml @ 10 mls/hr IV . Q24H [facility] Rx#:[id number] Vancomycin 1,250 mg In 250 Sodium Chloride 0.9% 250 ml @ 125 mls/hr IVPB ONCE ONE Rx#:[id number] Intake, IV Titration 761.413 511.960 246.056 Amount Albumin Human 25% 50 ml 100 In Empty Bag 1 bag @ 50 mls/hr IVPB Q1H [facility] Rx#: [id number] Norepinephrine 4 mg In 607.373 Sodium Chloride 0.9% 250 ml @ 0.03 MCG/KG/MIN 7. 777 mls/hr IV .Q24H [facility] Rx#:[id number] Norepinephrine 8 mg In 4.04 511.960 196.056 Sodium Chloride 0.9% 250 ml @ 0.03 MCG/KG/MIN 4. 545 mls/hr IV .Q24H [facility] Rx#:[id number] cefTRIAXone 2 gm In 50 50 Sodium Chloride 0.9% 50 ml @ 100 mls/hr IVPB Q24HR [facility] Rx#:[id number] Output: Drainage 3100 Right Chest 3100 Urine 40 25 15 Other: Voiding Method Indwelling Catheter Indwelling Catheter Indwelling Catheter # Bowel Movements 1 - Exam PHYSICAL EXAMINATION: Patient is obtunded. Unable to communicate. HEENT: Normocephalic. Neck is supple. Pupils reactive. Nostrils clear. Oral cavity is moist. Neck reveals no JVD, carotid bruits, or thyromegaly. CHEST EXAMINATION: Trachea is central. Symmetrical expansion. Right-sided diminished sounds. No wheezing. Nonlabored breathing. CARDIAC: Normal S1, S2 with no gallops. No murmurs ABDOMEN: Soft. Bowel sounds normal. No organomegaly. No abdominal bruits. Extremities: Bilateral lower extremity trace edema with redness and mild warmth. No clubbing or cyanosis Neurologically awake, alert, oriented x 0-1. Able to move all extremities. No gross focal neurological deficit. Skin: No rash or skin lesions. Psychiatric: Coperative. Could not be assessed completely. Musculoskeletal: No joint swelling or deformity. - Labs CBC & Chem 7: 02/12/24 04:30 02/12/24 04:30 Labs: Abnormal Lab Results - Last 24 Hours (Table) 02/11/24 02/11/24 02/11/24 Range/Units 11:57 17:19 23:39 WBC (3.8-10.6) k/uL RBC (3.80-5.40) m/uL Hgb (11.4-16.0) gm/dL Hct (34.0-46.0) % RDW (11.5-15.5) % Plt Count (150-450) k/uL Neutrophils # (1.3-7.7) k/uL Lymphocytes # (1.0-4.8) k/uL Potassium (3.5-5.1) mmol/L BUN (7-17) mg/dL Creatinine (0.52-1.04) mg/dL Glucose (74-99) mg/dL POC Glucose (mg/dL) 197 H 181 H 177 H (70-110) mg/dL Calcium (8.4-10.2) mg/dL Stool Occult Blood (Negative) 02/12/24 02/12/24 02/12/24 Range/Units 04:30 04:30 05:43 WBC 14.9 H (3.8-10.6) k/uL RBC 3.45 L (3.80-5.40) m/uL Hgb 10.6 L (11.4-16.0) gm/dL Hct 33.1 L (34.0-46.0) % RDW 19.3 H (11.5-15.5) % Plt Count 13 L* (150-450) k/uL Neutrophils # 13.1 H (1.3-7.7) k/uL Lymphocytes # 0.8 L (1.0-4.8) k/uL Potassium 3.4 L (3.5-5.1) mmol/L BUN 83 H (7-17) mg/dL Creatinine 3.15 H (0.52-1.04) mg/dL Glucose 167 H (74-99) mg/dL POC Glucose (mg/dL) 187 H (70-110) mg/dL Calcium 6.7 L (8.4-10.2) mg/dL Stool Occult Blood (Negative) 02/12/24 Range/Units 05:52 WBC (3.8-10.6) k/uL RBC (3.80-5.40) m/uL Hgb (11.4-16.0) gm/dL Hct (34.0-46.0) % RDW (11.5-15.5) % Plt Count (150-450) k/uL Neutrophils # (1.3-7.7) k/uL Lymphocytes # (1.0-4.8) k/uL Potassium (3.5-5.1) mmol/L BUN (7-17) mg/dL Creatinine (0.52-1.04) mg/dL Glucose (74-99) mg/dL POC Glucose (mg/dL) (70-110) mg/dL Calcium (8.4-10.2) mg/dL Stool Occult Blood Positive H (Negative) Microbiology - Last 24 Hours (Table) 02/10/24 19:00 Gram Stain - Preliminary Pleural Fluid Body Fluid Culture - Preliminary 02/09/24 13:52 Blood Culture Gram Stain - Preliminary Blood Blood Culture - Preliminary Klebsiella oxytoca Molecular ID Assessment and Plan Assessment: Hypotension with possible sepsis/septic shock requiring pressor support with Levophed and vasopressin. Chest x-ray showed interval marked progression of consolidation and pleural fluid on the right with a large right-sided pleural effusion and compressive n atelectasis.. Bilateral lower extremity cellulitis Klebsiella oxytoca bacteremia History of previous urinary tract infection with Klebsiella pneumonia Recurrent right-sided pleural effusion with history of multiple thoracentesis most recent on 02/06/2024 with 2.5 L fluid removal. Patient is status post right-sided thoracentesis with 3.2 L fluid removal. Acute hypoxic respiratory failure on oxygen at 5 L via nasal cannula Liver cirrhosis with abdominal ascites and history of TIPS procedure. Chronic thrombocytopenia secondary to liver disease/cirrhosis Lactic acidosis on admission Hyperammonemia Metabolic/hepatic encephalopathy secondary to sepsis and liver cirrhosis Acute on chronic renal disease stage IV possibly ATN. Baseline creatinine 1.87 creatinine admission was 2.6 Non-anion gap metabolic acidosis Common variable immunodeficiency. Patient receives IV IgG Related lipase level 869 and amylase 134. Patient denied any complaints of abdominal pain on admission. DVT prophylaxis SCDs due to thrombocytopenia Plan: Patient is currently in MICU. Patient will be continued on antibiotics of ceftriaxone and vancomycin to cover bacteremia and lower extremity cellulitis as well. Renal function worsened. Patient is currently on pressor support with norepinephrine and vasopressin. Continued on IV hydration. Status post right thoracentesis after platelet transfusion. Follow-up repeat blood cultures. Continue with lactulose. Patient underwent another right thoracentesis today due to recurrent effusion.. Patient is critically ill at this time. Upon further discussion with the family comfort measures were initiated. Time with Patient: Greater than 30
--- NOTE | 2024-02-13 11:40 | P.PN ---
Subjective Progress Note Date: 02/13/24 Patient is a 73-year-old female with a past medical history of hypertension, history of pleural effusion with right-sided thoracentesis, thrombocytopenia, chronic liver disease, history of January 2023, multiple paracentesis, GERD and also common variable immunodeficiency, anxiety/depression. Patient was brought to the hospital due to complaints of shortness of breath. Patient has been having recurrent right-sided pleural effusion and what was last drained on January 27, 2024. Patient has been doing well until last couple of days started breath is getting worse. Patient is also having increasing watery stools she is also taking lactulose for ammonia level. Otherwise denied any fever or chills. No fever no chills. Denied any hematemesis or melena. No complaints of chest pain. Patient is also having chronic leg swelling.EKG on admission showed atrial fibrillation with heart rate 90. Chest x-ray showed interval marked progression of consolidation and pleural fluid on the right with a large right-sided pleural effusion. Stable left lower lobe infiltrate. CT of the abdomen pelvis showed cirrhosis and splenomegaly. Moderate to large amount of ascites. Gallstones. Very large right pleural effusion with atelectasis of the lower right lung. Laboratory data showed WBC 3.8 hemoglobin 13.1 and platelets 14 Sodium 137 potassium 3.4 chloride 106 bicarb is 20 BUN 66 and creatinine 2.62, lactic acid 4.3 total bili 3.0 AST 87 ALT 72 and alk phos 250 and ammonia 46 Amylase 134 and lipase level is 869. Patient was hypotensive on admission with blood pressure 86/50 pulse is 83 respiration 23 and pulse ox 97% on 2 L via nasal cannula. 02/11/2024 Patient is in MICU. Patient is lethargic and unable to communicate. Currently on oxygen at 5 L via nasal cannula. Chest x-ray showed increasing right-sided pleural effusion with pulmonary venous congestion seen bilaterally and scattered infiltrates. Patient is status post right-sided thoracentesis at bedside by pulmonary with 3 point later fluid was aspirated.. Patient remains on pressor support with Levophed and vasopressin. Also on antibiotics in the form of ceftriaxone. Blood cultures positive for Klebsiella oxytoca. Laboratory data showed WBC 11.1 hemoglobin 10.8 and platelets 21 Sodium 137 potassium 3.7 chloride 108 bicarb is 19 BUN 77 and creatinine 2.99 and blood sugar 166 and calcium 7.1 Pulmonary and ID is on board. 02/12/2024 Patient is in MICU. Still encephalopathic. On oxygen via nasal cannula. Overnight patient was on BiPAP. Repeat chest x-ray showed recurrent large right-sided pleural effusion. Patient is also on pressor support with vasopressin and norepinephrine. Patient was also noted to have bloody stool Hemoccult positive for blood. Laboratory data showed WBC 14.9 hemoglobin 10.6 and platelets 13 sodium 137 potassium 3.4 chloride 105 bicarb is 26 BUN 83 creatinine 3.15 and blood sugar 167 and calcium 6.7. C. difficile is negative. Patient underwent right-sided thoracentesis again with 3.5 L fluid removal. Patient was read to put back again on BiPAP and later required intubation. According to the family wishes, comfort measures were initiated. Prognosis poor at this time. 02/12. Patient seen and examined. Currently on comfort care measures. REVIEW OF SYSTEMS: CONSTITUTIONAL: Cannot be obtained as patient is obtunded PHYSICAL EXAMINATION: GENERAL: The patient is obtunded, chronically ill looking HEENT: Pupils are round and equally reacting to light. EOMI. No scleral icterus. No conjunctival pallor. Normocephalic, atraumatic. No pharyngeal erythema. No thyromegaly. CARDIOVASCULAR: S1 and S2 present. No murmurs, rubs, or gallops. PULMONARY: Tachypneic, coarse breath sound bilaterally ABDOMEN: Soft, nontender, nondistended, normoactive bowel sounds. No palpable organomegaly. MUSCULOSKELETAL: No joint swelling or deformity. EXTREMITIES: No cyanosis, clubbing, or pedal edema. NEUROLOGICAL: Obtunded SKIN: No rashes. Assessment and plan Hypotension with possible sepsis/septic shock requiring pressor support with Levophed and vasopressin. Chest x-ray showed interval marked progression of consolidation and pleural fluid on the right with a large right-sided pleural effusion and compressive n atelectasis.. Bilateral lower extremity cellulitis Klebsiella oxytoca bacteremia History of previous urinary tract infection with Klebsiella pneumonia Recurrent right-sided pleural effusion with history of multiple thoracentesis most recent on 02/06/2024 with 2.5 L fluid removal. Patient is status post right-sided thoracentesis with 3.2 L fluid removal. Acute hypoxic respiratory failure on oxygen at 5 L via nasal cannula Liver cirrhosis with abdominal ascites and history of TIPS procedure. Chronic thrombocytopenia secondary to liver disease/cirrhosis Lactic acidosis on admission Hyperammonemia Metabolic/hepatic encephalopathy secondary to sepsis and liver cirrhosis Acute on chronic renal disease stage IV possibly ATN. Baseline creatinine 1.87 creatinine admission was 2.6 Non-anion gap metabolic acidosis Common variable immunodeficiency. Patient receives IV IgG Related lipase level 869 and amylase 134. Patient denied any complaints of abdominal pain on admission. DVT prophylaxis SCDs due to thrombocytopenia Continue comfort care measures Labs and medication were reviewed.. Continue same treatment. Continue with symptomatic treatment. Resume home medication. Monitor labs and vitals. DVT and GI prophylaxis. Further recommendations as per clinical course of the patient Dictation was produced using [employer] dictation software. please excuse any grammatical, word or spelling errors. Objective - Vital Signs Vital signs: Vital Signs Temp 96.5 F L 02/12/24 09:00 Pulse 87 02/12/24 16:00 Resp 11 L 02/13/24 07:56 BP 69/38 02/12/24 16:00 Pulse Ox 99 02/12/24 16:00 FiO2 40 02/12/24 10:59 Intake & Output 02/12/24 02/13/24 02/13/24 18:59 06:59 18:59 Intake Total 1322.224 Output Total 3415 Balance -2092.776 Weight 82 kg Intake: IV 860 Dextrose 5% in Water 1, 700 000 ml @ 100 mls/hr IV . [id number] HELLEN with Sodium Bicarb (1 Meq/ml) 150 ml Rx#:[id number] Sodium Chloride 0.9% 1, 160 000 ml @ 10 mls/hr IV . Q24H HELLEN Rx#:[id number] Intake, IV Titration 462.224 Amount Norepinephrine 8 mg In 258.000 Sodium Chloride 0.9% 250 ml @ 0.03 MCG/KG/MIN 4. 545 mls/hr IV .Q24H HELLEN Rx#:[id number] Vasopressin 60 unit In 154.224 Sodium Chloride 0.9% 150 ml @ 0.03 UNITS/MIN 4.59 mls/hr IV .Q24H HELLEN Rx#: [id number] cefTRIAXone 2 gm In 50 Sodium Chloride 0.9% 50 ml @ 100 mls/hr IVPB Q24HR HELLEN Rx#:[id number] Output: Drainage 3400 Right Chest 3400 Urine 15 Other: Voiding Method Indwelling Catheter Indwelling Catheter # Bowel Movements 1 - Labs CBC & Chem 7: 02/12/24 04:30 02/12/24 04:30 Labs: Abnormal Lab Results - Last 24 Hours (Table) 02/12/24 Range/Units 12:04 POC Glucose (mg/dL) 132 H (70-110) mg/dL Microbiology - Last 24 Hours (Table) 02/10/24 19:00 Anaerobic Culture - Preliminary Pleural Fluid 02/10/24 19:00 Gram Stain - Preliminary Pleural Fluid Body Fluid Culture - Preliminary 02/09/24 13:52 Blood Culture Gram Stain - Final Blood Blood Culture - Final Klebsiella oxytoca Molecular ID
--- NOTE | 2024-02-13 15:16 | P.PN ---
Subjective Progress Note Date: 02/13/24 Patient is a 73-year-old female with past medical history significant for common variable immunodeficiency, liver cirrhosis, abdominal ascites, TIPS procedure, and recurrent right-sided pleural effusion. Pulmonary consult was originally placed for recurrent right-sided pleural effusion. Patient has had multiple previous right-sided thoracentesis in the past. Last thoracentesis was on 02/06/24, a total of 2.5 L of fluid was removed at that time. In the past fluid cytology has been negative for malignant cells. As reported above, patient does have liver cirrhosis and history of ascites with frequent paracentesis status post TIPS procedure. She does follow at the [facility]. Patient presents back to the ED yesterday afternoon complaining chiefly of progressively worsening shortness of breath. Also, reports from the ER provider, of large volume diarrhea. She does take lactulose outpatient. Chest x-ray showing a recurrent large right-sided pleural effusion. While in emergency department as an overflow, noted to be hypotensive, she was bolused with a total of 2 L normal saline, and started on normal saline at 130 mL/h. Remained hypotensive, and started on norepinephrine by the ER provider. She was then transferred to the intensive care unit. CBC: WBC count 3.2, hemoglobin 13.1, hematocrit 39.2, platelets low at 14,000. CMP: Sodium 137, potassium 3.4, chloride 106, serum bicarb 20, BUN 66, creatinine higher than baseline at 2.62, glucose 67. Lactic elevated at 4.3 and down to 3.7. LFTs are mildly elevated. Ammonia 46. She does take lactulose on an outpatient basis. Troponin 0.016. Amylase 134, lipase 869. Albumin 2.3. Patient was started on empiric antibi otics in the form of Rocephin and vancomycin in the ED. Patient is currently being evaluated in room 263. Currently, patient is lethargic she is unable to provide information for HPI. Unfortunately, no family present. Current vital signs include a heart rate of 100 bpm, blood pressure is hypotensive at 71/37 mmHg. Norepinephrine is being titrated up, and she may need second vasopressor. Normal saline also infusing at 130 mL/h. She is afebrile. Breathing is tachypneic. She is on 5 L/min nasal cannula. SpO2 is reading 94%. Markedly diminshed lung sounds on the right. Right lower extremity is erythemic and painful. Prognosis guarded. On 02/11/2024, the patient is being seen for a follow-up. This morning, the patient is on 5 L of oxygen by nasal cannula. Overnight, the patient was utilizing BiPAP at a pressure of 12 over 5 cm of water with an FiO2 of 40%. Noted repeat chest x-ray was done and the patient has a very rapid reaccumulation of the right-sided pleural effusion which was considered to be very large in size. Based on that, I performed another thoracentesis on this patient at the bedside and a total of 3.2 L of pleural fluid was aspirated from the right lung. No complications. Improved aeration of the right lung following the thoracentesis. As such, the patient has a total of 6 L of pleural fluid drained over the past 24 hours. Will supplement the patient with albumin 12.5 g x 2 doses. Urine output remains quite diminished. Renal function is impaired and the patient's creatinine today is at 2.99 with a BUN of 77. Electrolytes show a serum bicarbonate of 19 and the patient remains on a bicarb infusion which is running at 100 cc an hour. The patient remains on norepinephrine at 0.24 mcg/kg/min and vasopressin physiologic dose. The patient remains on IV Rocephin 2 g every 24 hours. The blood culture was positive for Klebsiella oxytoca. At the same time, continues to have extensive edema in lower extremities bilaterally with some skin blistering and vesicle formation on the right and there is ongoing erythema with consideration of a cellulitis. The pleural fluid that was drained from the right lung earlier showed a white cell count of 324. 80% polynuclear cells and 15% lymphocytes. 02/12/2024, the patient is encephalopathic, obtunded, short of breath, and overnight the patient was placed back on the BiPAP. The patient had another successful thoracentesis yesterday and she was doing well till the evening when she started having increased shortness of breath and labored breathing. Based on that, the patient was placed back on a BiPAP pressure of 12 cm of water with FiO2 of 40%. Repeat chest x-ray was done and the patient was found to have another recurrent large right-sided pleural effusion. The patient remains on pressors and currently she is on norepinephrine 0.16 mcg/kg/min and vasopressin at 0.03 units. Urine output is minimal in the order of 5 to 10 cc an hour. The patient remains on a bicarb infusion. The blood work from today showed a white cell count of 14.5, hemoglobin 10.6 and a platelet count of 13. Sodium is at 137, potassium is at 3.4, BUN is 83 with a creatinine of 3.15. Serum bicarb is up to 26. The serum ammonia level was down to 28. Calcium level is at 6.7. She does have some bloody stool also in the stool for occult blood was also positive. I contacted the daughter and explained her to the situation. The patient's condition is obviously decompensated. I offered the patient another thoracentesis and the family was agreeable. Based on that, thoracentesis was done and a total of 3.5 L of pleural fluid was aspirated from the right lung successfully. During the process, the patient was on BiPAP. However, following the procedure, within the next 10 to 15 minutes, the patient became quite and apneic while being on a BiPAP. I was able to intubate the patient. I contacted the daughter and the sisters again. Based on their wishes, we decided not to reintubate the patient. She was placed on oxygen and nasal cannula at 5 L and her breathing gradually picked up. At this point in time, she is on 5 L with a pulse ox of 97%. Remains on pressors. Encephalopathic. Sluggishly responsive to verbal stimulation. Withdraws to painful stimulation all 4 extremities. Extensive edema lower extremities bilaterally. On 02/13/2024, patient is being seen for a follow-up. The patient got transferred out of the intensive care unit yesterday. The patient is currently under hospice care. She received morphine 2 mg IV every 1 hour on a as needed basis. She is resting comfortably in bed. She is on 2 L of oxygen by nasal cannula with a pulse ox of 99%. She is extremely lethargic and not arousable and the family is at the bedside. Objective - Vital Signs Vital signs: Vital Signs Temp 96.5 F L 02/12/24 09:00 Pulse 87 02/12/24 16:00 Resp 11 L 02/13/24 07:56 BP 69/38 02/12/24 16:00 Pulse Ox 99 02/12/24 16:00 FiO2 40 02/12/24 10:59 Intake & Output 02/12/24 02/13/24 02/13/24 18:59 06:59 18:59 Intake Total 1322.224 Output Total 3415 Balance -2092.776 Weight 82 kg Intake: IV 860 Dextrose 5% in Water 1, 700 000 ml @ 100 mls/hr IV . [id number] HELLEN with Sodium Bicarb (1 Meq/ml) 150 ml Rx#:[id number] Sodium Chloride 0.9% 1, 160 000 ml @ 10 mls/hr IV . Q24H HELLEN Rx#:[id number] Intake, IV Titration 462.224 Amount Norepinephrine 8 mg In 258.000 Sodium Chloride 0.9% 250 ml @ 0.03 MCG/KG/MIN 4. 545 mls/hr IV .Q24H HELLEN Rx#:[id number] Vasopressin 60 unit In 154.224 Sodium Chloride 0.9% 150 ml @ 0.03 UNITS/MIN 4.59 mls/hr IV .Q24H HELLEN Rx#: [id number] cefTRIAXone 2 gm In 50 Sodium Chloride 0.9% 50 ml @ 100 mls/hr IVPB Q24HR HELLEN Rx#:[id number] Output: Drainage 3400 Right Chest 3400 Urine 15 Other: Voiding Method Indwelling Catheter Indwelling Catheter # Bowel Movements 1 - Exam GENERAL EXAM: Lethargic, 73-year-old white female, encephalopathic, obtunded, lethargic, currently in moderate degree respiratory distress currently on 2 L oxygen nasal cannula HEAD: Normocephalic and atraumatic EYES: Normal reaction of pupils, equal size. NOSE: Clear with pink turbinates. THROAT: No erythema or exudates. NECK: No masses, no JVD. CHEST: No chest wall deformity. LUNGS: Equal air entry with markedly diminished right lung. Left basilar crackles. On 5 L/min nasal cannula. Tachypneic. No accessory muscle use. CVS: S1 and S2 normal with systolic murmur, grade 2, regular rhythm. No other extra heart sounds ABDOMEN: Abdomen is mildly distended but soft, no guarding or rigidity, no hep atosplenomegaly, active bowel sounds SPINE: No scoliosis or deformity SKIN: Scattered purpura/petechiae; possible lower extremity cellulitis CENTRAL NERVOUS SYSTEM: Significant encephalopathy, response to painful stimulation, does not communicate at this point in time. EXTREMITIES: There is 3-4+ bilateral lower extremity pitting edema. No clubbing, or cyanosis. Peripheral pulses are intact. - Labs CBC & Chem 7: 02/12/24 04:30 02/12/24 04:30 Labs: Abnormal Lab Results - Last 24 Hours (Table) 02/12/24 Range/Units 12:04 POC Glucose (mg/dL) 132 H (70-110) mg/dL Microbiology - Last 24 Hours (Table) 02/10/24 19:00 Anaerobic Culture - Preliminary Pleural Fluid 02/10/24 19:00 Gram Stain - Preliminary Pleural Fluid Body Fluid Culture - Preliminary 02/09/24 13:52 Blood Culture Gram Stain - Final Blood Blood Culture - Final Klebsiella oxytoca Molecular ID Assessment and Plan Assessment: Septic shock with Klebsiella oxytoca. Rule out bacterial peritonitis, spontaneous. Rule out cellulitis with secondary gram-negative sepsis. Urinary source of urinary of infection or lung infection/pneumonia is felt to be less likely. Hypotension and shock, refractory to fluid resuscitation, requiring vasopressors. Recurrent right-sided pleural effusion, with multiple previous right-sided thoracentesis in the past. Last thoracentesis was on 02/06/24, a total of 2.5 L of fluid was removed at that time. In the past fluid cytology has been negative for malignant cells. Subsequently, the patient underwent a thoracentesis on 02/10/2024 where a total of 3 L of fluid was removed and another thoracentesis was done today because of rapid recommendation of right-sided pleural effusion with evacuation of around 3.2 L of pleural fluid. Another thoracentesis on 02/12/2024 was performed a total of 3.5 L of fluid was aspirated. No complications. Acute hypoxemic respiratory failure, currently on 2 L O2 nasal cannula History of liver cirrhosis and abdominal ascites, status post TIPS procedure Chronic thrombocytopenia, Lipase is 869, abdomen not particular tender on examination Lactic acidosis, Hyperammonemia, takes lactulose on outpatient basis Metabolic encephalopathy, secondary to above and possible sepsis Bilateral lower extremity edema, with the possibility of right lower extremity cellulitis Acute on chronic kidney disease, likely second to hypotension and ATN, creatinine is stable and the patient remains oliguric. History of common variable immunodeficiency, receives IgG All called blood in the stool is positive Plan: Family is at the bedside Patient is under the care of hospice Morphine as needed for comfort measures Questions answered appropriately to the family Continue end-of-life care
[2024-02-13 20:47] VITALS: RESP 12
[2024-02-14] MEDS ORDERED: SCOPOLAMINE 1 MG/72 HR PATCH TRANSDERM SCH (11:30)
--- NOTE | 2024-02-14 13:22 | P.DS ---
Providers Date of admission: 02/09/24 16:58 Expected date of discharge: 02/14/24 Attending physician: Inocencio Rodriguez Consults: 02/09/24 16:58 Consult Physician Routine Consulting Provider: Soledad Chester Consult Reason/Comments: Right pleural effusion Do you want consulting provider notified?: Yes Consult Physician Routine Consulting Provider: Tahira Stout Consult Reason/Comments: possible cellulitis Do you want consulting provider notified?: Yes Primary care physician: [facility]iot[facility] Course: Discharge diagnoses; Hypotension with possible sepsis/septic shock requiring pressor support with Levophed and vasopressin. Chest x-ray showed interval marked progression of consolidation and pleural fluid on the right with a large right-sided pleural effusion and compressive n atelectasis.. Bilateral lower extremity cellulitis Klebsiella oxytoca bacteremia History of previous urinary tract infection with Klebsiella pneumonia Recurrent right-sided pleural effusion with history of multiple thoracentesis most recent on 02/06/2024 with 2.5 L fluid removal. Patient is status post right-sided thoracentesis with 3.2 L fluid removal. Acute hypoxic respiratory failure on oxygen at 5 L via nasal cannula Liver cirrhosis with abdominal ascites and history of TIPS procedure. Chronic thrombocytopenia secondary to liver disease/cirrhosis Lactic acidosis on admission Hyperammonemia Metabolic/hepatic encephalopathy secondary to sepsis and liver cirrhosis Acute on chronic renal disease stage IV possibly ATN. Baseline creatinine 1.87 creatinine admission was 2.6 Non-anion gap metabolic acidosis Common variable immunodeficiency. Patient receives IV IgG Related lipase level 869 and amylase 134. Patient denied any complaints of abdominal pain on admission. Hospital course; Patient is a 73-year-old female with a past medical history of hypertension, history of pleural effusion with right-sided thoracentesis, thrombocytopenia, chronic liver disease, history of January 2023, multiple paracentesis, GERD and also common variable immunodeficiency, anxiety/depression. Patient was brought to the hospital due to complaints of shortness of breath. Patient has been having recurrent right-sided pleural effusion and what was last drained on January 27, 2024. Patient has been doing well until last couple of days started breath is getting worse. Patient is also having increasing watery stools she is also taking lactulose for ammonia level. Otherwise denied any fever or chills. No fever no chills. Denied any hematemesis or melena. No complaints of chest pain. Patient is also having chronic leg swelling.EKG on admission showed atrial fibrillation with heart rate 90. Chest x-ray showed interval marked progression of consolidation and pleural flu id on the right with a large right-sided pleural effusion. Stable left lower lobe infiltrate. CT of the abdomen pelvis showed cirrhosis and splenomegaly. Moderate to large amount of ascites. Gallstones. Very large right pleural effusion with atelectasis of the lower right lung. Laboratory data showed WBC 3.8 hemoglobin 13.1 and platelets 14 Sodium 137 potassium 3.4 chloride 106 bicarb is 20 BUN 66 and creatinine 2.62, lactic acid 4.3 total bili 3.0 AST 87 ALT 72 and alk phos 250 and ammonia 46 Amylase 134 and lipase level is 869. Patient was hypotensive on admission with blood pressure 86/50 pulse is 83 respiration 23 and pulse ox 97% on 2 L via nasal cannula. 02/11/2024 Patient is in MICU. Patient is lethargic and unable to communicate. Currently on oxygen at 5 L via nasal cannula. Chest x-ray showed increasing right-sided pleural effusion with pulmonary venous congestion seen bilaterally and scattered infiltrates. Patient is status post right-sided thoracentesis at bedside by pulmonary with 3 point later fluid was aspirated.. Patient remains on pressor support with Levophed and vasopressin. Also on antibiotics in the form of ceftriaxone. Blood cultures positive for Klebsiella oxytoca. Laboratory data showed WBC 11.1 hemoglobin 10.8 and platelets 21 Sodium 137 potassium 3.7 chloride 108 bicarb is 19 BUN 77 and creatinine 2.99 and blood sugar 166 and calcium 7.1 Pulmonary and ID is on board. 02/12/2024 Patient is in MICU. Still encephalopathic. On oxygen via nasal cannula. Overnight patient was on BiPAP. Repeat chest x-ray showed recurrent large right-sided pleural effusion. Patient is also on pressor support with vasopressin and norepinephrine. Patient was also noted to have bloody stool Hemoccult positive for blood. Laboratory data showed WBC 14.9 hemoglobin 10.6 and platelets 13 sodium 137 potassium 3.4 chloride 105 bicarb is 26 BUN 83 creatinine 3.15 and blood sugar 167 and calcium 6.7. C. difficile is negative. Patient underwent right-sided thoracentesis again with 3.5 L fluid removal. Patient was read to put back again on BiPAP and later required intubation. According to the family wishes, comfort measures were initiated. Prognosis poor at this time. 02/12. Patient seen and examined. Currently on comfort care measures. 02/13. Patient was pronounced on 02/14/2024 at 10:50 AM Dictation was produced using [employer] dictation software. please excuse any grammatical, word or spelling errors. Patient Condition at Discharge: Poor Plan - Discharge Summary Discharge Rx Participant: Yes New Discharge Prescriptions: No Action traMADol HCL 50 mg PO BID PRN PRN Reason: Pain Immun Glob G(IgG)/Pro/Iga 0-50 [Hizentra 10 Gram/50 ml Syringe] 1 dose IV FR Spironolactone [Aldactone] 25 mg PO DAILY ALPRAZolam [Xanax] 1 mg PO BID PRN PRN Reason: Anxiety Aspirin EC [Ecotrin Low Dose] 81 mg PO DAILY Bumetanide [BUMEX] 1 mg PO DAILY Discharge Medication List traMADol HCL 50 mg PO BID PRN 08/29/19 [History] Immun Glob G(IgG)/Pro/Iga 0-50 [Hizentra 10 Gram/50 ml Syringe] 1 dose IV FR 0 08/12/23 [History] ALPRAZolam [Xanax] 1 mg PO BID PRN 12/28/23 [History] Aspirin EC [Ecotrin Low Dose] 81 mg PO DAILY 12/28/23 [History] Bumetanide [BUMEX] 1 mg PO DAILY 12/28/23 [History] Spironolactone [Aldactone] 25 mg PO DAILY 12/28/23 [History] Follow up Appointment(s)/Referral(s): Piotr Figueroa DO [Primary Care Provider] - 1-2 days Discharge Disposition: - Preliminary Cause of Preliminary Cause of : Sepsis, respiratory failure
== END 2024-02-14 12:31 | disposition expired | DRG 871 ==
LOC: EC 13:20 → 3SCARD 16:58 → 2SICU 22:25 → 4SSUR 02-12 17:01
PROVIDERS: ADMIT Internal Medicine; ATTEND Internal Medicine
PROC: 3E033XZ Introduction of Vasopressor into Peripheral Vein, Percutaneous Approach (ICD-10-PCS; principal; 2024-02-09)
PROC: 5A09357 Assistance with Respiratory Ventilation, Less than 24 Consecutive Hours, Continuous Positive Airway Pressure (ICD-10-PCS; 2024-02-10)
PROC: 02HV33Z Insertion of Infusion Device into Superior Vena Cava, Percutaneous Approach (ICD-10-PCS; 2024-02-10)
PROC: 0W993ZZ Drainage of Right Pleural Cavity, Percutaneous Approach (ICD-10-PCS; 2024-02-10)
PROC: 30233R1 Transfusion of Nonautologous Platelets into Peripheral Vein, Percutaneous Approach (ICD-10-PCS; 2024-02-10)
PROC: 0W993ZX Drainage of Right Pleural Cavity, Percutaneous Approach, Diagnostic (ICD-10-PCS; 2024-02-11)
PROC: 0W993ZZ Drainage of Right Pleural Cavity, Percutaneous Approach (ICD-10-PCS; 2024-02-12)
DX: A41.59 Other Gram-negative sepsis (principal); G93.41 Metabolic encephalopathy; R65.21 Severe sepsis with septic shock; J96.01 Acute respiratory failure with hypoxia; J18.9 Pneumonia, unspecified organism; N17.0 Acute kidney failure with tubular necrosis; L03.116 Cellulitis of left lower limb; L03.115 Cellulitis of right lower limb; N18.4 Chronic kidney disease, stage 4 (severe); R18.8 Other ascites; D83.9 Common variable immunodeficiency, unspecified; E87.20 Acidosis, unspecified; J90 Pleural effusion, not elsewhere classified; Z66 Do not resuscitate; Z51.5 Encounter for palliative care; K76.82 Hepatic encephalopathy; D69.59 Other secondary thrombocytopenia; F41.9 Anxiety disorder, unspecified; F32.A Depression, unspecified; I48.91 Unspecified atrial fibrillation; I12.9 Hypertensive chronic kidney disease with stage 1 through stage 4 chronic kidney disease, or unspecified chronic kidney disease; K74.60 Unspecified cirrhosis of liver; K72.90 Hepatic failure, unspecified without coma; Z79.82 Long term (current) use of aspirin; Z79.899 Other long term (current) drug therapy
CPT/HCPCS: 36415; 36600; 71045; 71046; 74176; 80048; 80053; 80202; 81001; 82140; 82150; 82272; 82565; 82805; 82945; 83605; 83615; 83690; 83735; 84157; 84484; 85025; 85610; 85730; 86850; 86900; 86901; 87040; 87070; 87075; 87077; 87186; 87205; 87324; 88108; 88305; 89050; 93005; 94660; 96361; 96365; 96375; 99291